=== PATIENT | female | born 1955 | race Caucasian/White ===

== ENCOUNTER 2020-11-21 19:44 | Inpatient (IN) | payer MEDICARE, OTHER ==
[~2020-11-21] VITALS: Ht 160 cm; Wt 98.9 kg
[2020-11-21 20:50] VITALS: BP 149/84
[2020-11-21] MEDS ORDERED: MAGNESIUM HYDROXIDE 2,400 MG/30 ML ORAL.SUSP. PO PRN (21:00)
[2020-11-21] MEDS ORDERED: METHYL SALICYLATE/MENTHOL TOPICAL OINTMENT 57GM TUBE. TP PRN (21:00)
[2020-11-21 21:26] LABS: BILIRUBIN,URINE NEG (NEG); CLARITY,URINE CLEAR; COLOR,URINE YELLOW; GLUCOSE,URINE NEG (NEG); NITRITE,URINE NEG (NEG); UROBILINOGEN,URINE 0.2 mg/dL (0.2 mg/dL)
[2020-11-21 21:27] LABS: BACTERIA,URINE FEW /HPF (0-FEW); RBC,URINE 0 /HPF (0-2); SQUAMOUS EPITHELIAL CELL,UR OCC /LPF; WBC,URINE OCC /HPF (0-4)
--- NOTE | 2020-11-21 21:30 | PDOC ---
Exam Note: Donte Note: Please also refer to the separate dictated note~for this date of service dictated separately.~Patient seen individually. Discussed the patient with Nursing staff reviewed the chart.~Reviewed interim history and current functioning. Reviewed vital signs,~Labs/ Radiology~and current medications noted below. Continue current treatment with the changes noted in the dictated addendum note Assessment: Vital Signs/I&O: Vital Signs Date Time Temp Pulse Resp B/P (MAP) Pulse Ox O2 Delivery O2 Flow Rate FiO2 11/21/20 20:50 97.5 90 20 149/84 (105) 100 Room Air Labs: Laboratory Tests Test 11/21/20 20:27 Glucose (Fingerstick) 191 mg/dL (70-99) H Current Medications: Meds: Laboratory Tests Test 11/21/20 20:27 Glucose (Fingerstick) 191 mg/dL Current Medications Medications (Trade) Dose Ordered Sig/Leonides Route PRN Reason Start Time Stop Time Status Last Admin Dose Admin Multi-Ingredient Ointment (Analgesic [place]) 1 swathi PRN QID PRN TP MUSCLE PAIN 11/21/20 21:00 Al Hydroxide/Mg Hydroxide (Mylanta Plus Xs) 15 ml PRN AFTMEALHC PRN PO DYSPEPSIA 11/21/20 21:00 Magnesium Hydroxide (Milk Of Magnesia) 2,400 mg PRN QHS PRN PO CONSTIPATION 11/21/20 21:00 I have reviewed the current psychotropics carefully including drug interactions. Risk benefit ratio favors no change other than as noted in my dictated progress note. RAJIV VELAZQUEZ MD Nov 21, 2020 21:30
[2020-11-21] MEDS ORDERED: OMEP20CA16 PO (21:33)
[2020-11-21] MEDS ORDERED: INSU100V31 SQ (21:33)
[2020-11-21] MEDS ORDERED: PENTOXIFYLLINE PO (21:33)
[2020-11-21] MEDS ORDERED: ASPI-889 PO (21:33)
[2020-11-21] MEDS ORDERED: MENT118G TP (21:33)
[2020-11-21] MEDS ORDERED: GUAI237L83 PO (21:33)
[2020-11-21] MEDS ORDERED: FURO40TA4 PO (21:33)
[2020-11-21] MEDS ORDERED: OXYB-36 PO (21:33)
[2020-11-21] MEDS ORDERED: AMOX1TAB61 PO (21:33)
[2020-11-21] MEDS ORDERED: LEVO112T4 PO (21:33)
[2020-11-21] MEDS ORDERED: BISA5TAB4 PO (21:33)
[2020-11-21] MEDS ORDERED: POLY2500 PO (21:33)
[2020-11-21] MEDS ORDERED: PROP40TA PO (21:33)
[2020-11-21] MEDS ORDERED: ZOLP5TAB PO (21:33)
[2020-11-21] MEDS ORDERED: IBUP-1673 PO (21:33)
[2020-11-21] MEDS ORDERED: POTA10TA5 PO (21:33)
[2020-11-21] MEDS ORDERED: INSU100V13 SQ (21:33)
[2020-11-21] MEDS ORDERED: HYDR-2155 PO (21:33)
[2020-11-21] MEDS ORDERED: EMOL85CR TP (21:33)
[2020-11-21] MEDS ORDERED: IPRA3AMP29 NEB (21:33)
[2020-11-21] MEDS ORDERED: SALI10002 MM (21:33)
[2020-11-21] MEDS ORDERED: MAGN71.5 PO (21:33)
[2020-11-21] MEDS ORDERED: LORA0.5T21 PO (21:33)
[2020-11-21] MEDS ORDERED: ACET325T21 PO (21:33)
[2020-11-21] MEDS ORDERED: QUET300T5 PO (21:33)
[2020-11-21] MEDS ORDERED: BETA15CR4 TP (21:33)
[2020-11-21] MEDS ORDERED: SEMA1PEN SQ (21:33)
[2020-11-21] MEDS ORDERED: Vitamin D3 PO (21:33)
[2020-11-21] MEDS ORDERED: BISACODYL TAB 5 MG TABLET.DR. PO PRN (21:45)
[2020-11-21] MEDS ORDERED: IPRATRPIUM/ALBUTEROL 0.5/2.5MG 3 ML NEBU. NEB PRN (21:45)
[2020-11-21] MEDS ORDERED: ACETAMINOPHEN 325 MG TABLET PO PRN (21:45)
[2020-11-21] MEDS ORDERED: IBUPROFEN 200 MG TABLET PO PRN (21:45)
[2020-11-21] MEDS ORDERED: NON FORMULARY ITEM (Menthol (Biofreeze) 1 APP) TP PRN (21:45)
[2020-11-21] MEDS ORDERED: MINERAL OIL/PETROLATUM TOPICAL CREAM 113GM JAR. TP PRN (22:00)
[2020-11-21] MEDS ORDERED: guaiFENesin DM 200MG/20MG 10 ML SYRUP PO PRN (22:00)
[2020-11-21] MEDS ORDERED: SALIVA STIMULANT AGENT 44ML SPRAY BOTTLE. PO PRN (22:15)
[2020-11-21] MEDS ORDERED: BETAMETHASONE DP AUGMENTED 0.05% 15gm CREAM TUBE. TP PRN (22:15)
[2020-11-21 22:38] LABS: BASO # 0.2 x10^3/uL (0.0-0.2); BASO % 2 % (0-3); EOS # 0.4 x10^3/uL (0.0-0.7); EOS % 4 % (0-3); HEMATOCRIT 42.4 % (36.0-47.0); HEMOGLOBIN 14.3 g/dL (12.0-15.5); LYMPH # 2.8 x10^3/uL (1.0-4.8); LYMPH % 28 % (24-48); MEAN CORPUSCULAR HEMOGLOBIN 29 pg (25-35); MEAN CORPUSCULAR HGB CONC 34 g/dL (31-37); MEAN CORPUSCULAR VOLUME 85 fL (79-100); MONO # 0.8 x10^3/uL (0.0-1.1); MONO % 8 % (0-9); NEUT % 59 % (31-73); PLATELET COUNT 282 x10^3/uL (140-400); RED BLOOD COUNT 4.97 x10^6/uL (3.50-5.40); WHITE BLOOD COUNT 10.2 x10^3/uL (4.0-11.0)
[2020-11-21] MEDS: QUEtiapine 100 MG TABLET. PO SCH (22:45)
[2020-11-21] MEDS: ZOLPIDEM 5 MG TABLET. PO SCH (22:45)
[2020-11-21] MEDS: LORazepam 0.5 MG TABLET PO SCH (22:45)
[2020-11-21] MEDS: INSULIN GLARGINE SYRINGE. SQ SCH (22:46)
[2020-11-21 22:53] LABS: ALBUMIN 3.6 g/dL (3.4-5.0); ALBUMIN/GLOBULIN RATIO 0.9 (1.0-1.7); CALCIUM 9.2 mg/dL (8.5-10.1); CREATININE 0.9 mg/dL (0.6-1.0); TOTAL PROTEIN 7.6 g/dL (6.4-8.2)
[2020-11-21 22:54] LABS: GFR 62.8; MAGNESIUM 1.9 mg/dL (1.8-2.4); POTASSIUM 3.8 mmol/L (3.5-5.1); TOTAL BILIRUBIN 0.2 mg/dL (0.2-1.0)
--- NOTE | 2020-11-22 01:02 | EKG ---
[address] [address] Test Date: 2020-11-21 Test Time: 23:17:21 Pat Name: JILLIAN VU Department: Room: [address] [place] [address] Gender: F Screener Operator: : 1955 Requested By: RAJIV VELAZQUEZ Order Number: [id number] Reading MD: Go Mendez MD Measurements Intervals [place] Rate: 86 P: 116 WV: 200 QRS: 42 QRSD: 74 T: 41 QT: 346 QTc: 417 Interpretive Statements SINUS RHYTHM BASELINE ARTIFACT Electronically Signed On 11-22-2020 7:25:19 WEATHER STRIPPER by Go Mendez MD
[2020-11-22 05:16] LABS: PLATELET CLUMP PRESENT; PLT ESTIMATE ADEQUATE (ADEQUATE)
[2020-11-22] MEDS: LEVOTHYROXINE 112 MCG TABLET PO SCH (06:00)
[2020-11-22 06:16] VITALS: BP 135/82
[2020-11-22] MEDS: INSULIN LISPRO 300 UNITS/3 ML VIAL. SQ SCH ×3 (08:00→17:19)
[2020-11-22] MEDS: OXYBUTYNIN CHLORIDE 5 MG TABLET PO SCH (08:21)
[2020-11-22] MEDS: LACTOBACILLUS RHAMNOSUS GG 1 CAPSULE. PO SCH ×2 (08:22→20:45)
[2020-11-22] MEDS: ASPIRIN ENTERIC COATED 81 MG TABLET.DR. PO SCH (08:22)
[2020-11-22] MEDS: PENTOXIFYLLINE ER 400 MG TABLET.ER. PO SCH ×3 (08:22→17:13)
[2020-11-22] MEDS: AMOXICILLIN/K CLAV 875/125MG TABLET. PO SCH ×2 (08:22→20:45)
[2020-11-22] MEDS: FUROSEMIDE 40 MG TABLET PO SCH (08:22)
[2020-11-22] MEDS: POLYETHYLENE GLYCOL 3350 17 GM PACKET. PO SCH (08:22)
[2020-11-22] MEDS: MAGNESIUM CHLORIDE ER 64 MG TABLET.ER PO SCH (08:22)
[2020-11-22] MEDS: PROPRANOLOL 20 MG TABLET. PO SCH (08:23)
[2020-11-22] MEDS: POTASSIUM CHLORIDE 10 MEQ TABLET.ER. PO SCH (08:23)
[2020-11-22] MEDS: PANTOPRAZOLE 40 MG TABLET. PO SCH (08:23)
[2020-11-22] MEDS: CHOLECALCIFEROL (VITAMIN D3) 1,000 UNIT TABLET PO SCH (08:23)
[2020-11-22] MEDS: LORazepam 0.5 MG TABLET PO SCH ×3 (08:23→20:47)
[2020-11-22] MEDS: INSULIN GLARGINE SYRINGE. SQ SCH ×2 (08:31→21:32)
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
[2020-11-22 14:12] LABS: THYROXINE 8.6 ug/dL (4.5-12.0)
[2020-11-22 14:25] LABS: THYROID STIM HORMONE (TSH) 1.281 uIU/mL (0.358-3.740)
[2020-11-22 16:08] VITALS: BP 112/72
--- NOTE | 2020-11-22 17:42 | CONS ---
DATE OF CONSULTATION: 11/22/2020 REASON FOR CONSULTATION: Medical management. HISTORY OF PRESENT ILLNESS: The patient is a 65-year-old female patient, a resident at [facility] who reportedly had been invading personal space of others, refusing medication, refusing showers, making sexual comments to staff, defecating in shower floor, clogging the toilet with silverware and cups, speck and pears, all this in a background of schizoaffective disorder with psychotic features. The patient was admitted to [facility] for inpatient psychiatric stabilization. PAST MEDICAL HISTORY: Medically, the patient is known to have type 2 diabetes, hypothyroidism, hyperlipidemia, constipation, attention deficit, mild cognitive deficit. PAST SURGICAL HISTORY: Significant for total abdominal hysterectomy. ALLERGIES: She is allergic to ASCORBIC ACID, AVOCADO, CLONIDINE, LITHIUM, MEPERIDINE, OLANZAPINE, and STRAWBERRY. MEDICATIONS: She is currently on following medications: She is on Augmentin 875 mg twice a day for 10 days for UTI. She is on DuoNeb 3 mL by nebulizer twice a day, propranolol 40 mg daily, aspirin 81 mg once a day, ibuprofen 200 mg every 6 hours, hydrocodone/APAP 5/325 one tablet twice a day as needed, Tylenol 650 every 4 hours, quetiapine fumarate for Seroquel 600 mg at bedtime, lorazepam 0.5 mg 3 times a day, Ambien 5 mg at bedtime, magnesium chloride, Slow-Mag 1 tablet daily, potassium chloride 10 mEq once a day, furosemide 40 mg daily, guaifenesin/dextromethorphan 10 mL every 8 hours. She is on bisacodyl tablets 5-10 mg daily p.r.n. for constipation, omeprazole 20 mg once a day, Ozempic 1 mg subcutaneous every Thursday. She is on NovoLog 20 units 3 times a day with meals and levothyroxine sodium 112 mcg once a day. She is on betamethasone valerate cream applied topically twice a day. She is on Eucerin Advanced Repair Cream applied topically twice a day, Biofreeze applied topically 4 times a day. She is on oxybutynin chloride 5 mg daily and she is on saliva substitute combination 15 mL 3 times a day, polyethylene glycol 17 grams daily, pentoxifylline 400 mg 3 times a day and vitamin D 2000 units once a day. FAMILY HISTORY: Noncontributory. SOCIAL HISTORY: She is a resident at [facility]. She has 2 daughters and 1 son. She never smoked, does not drink alcohol. She used to be an [employer]. REVIEW OF SYSTEMS: As per history of present illness. PHYSICAL EXAMINATION: GENERAL: When I examined her this afternoon, she looked well and was clearly in no apparent respiratory distress. No pallor, jaundice, cyanosis or thyromegaly. No jugular venous distention. No limb edema. VITAL SIGNS: Her heart rate was 99, blood pressure was 135/82, temperature was 97.5, respiratory rate was 18 and oxygen saturation was 98% on room air. HEAD, EYES, EARS, NOSE AND THROAT: Showed she is normocephalic, atraumatic. NECK: Supple. HEART: Showed normal first and second heart sounds. No gallop, rub or murmur. CHEST: Clear to auscultation. No crepitation or rhonchi. ABDOMEN: Distended, soft, nontender. NEUROLOGIC: She was somewhat slow to respond, but all her cranial nerves are intact. EXTREMITIES: She moves extremities without difficulty. She ambulates without assistance or assistive devices. LABORATORY DATA: Showed a white cell count of 10,200, hemoglobin 14, hematocrit 42, MCV 85 and platelet count 282,000 with a manual differential showed 59% polymorphs, 28% lymphocytes and 8% monocytes. Her D-dimer was normal at 0.8 mg/dL. Her chemistry showed serum sodium of 137, potassium 3.8, chloride 98, bicarbonate 28, anion gap of 11, BUN 14, creatinine 0.9, estimated GFR was 62 mL per minute. Her glucose was 149, calcium was 9.2, magnesium was 1.9. Her total bilirubin, AST, ALT, alkaline phosphatase were normal. Total protein 7.6, albumin was 3.56. Her serum triglycerides were 315, total cholesterol was 183, LDL was 80, VLDL was 63, HDL was 40 and the ratio was 4. Her TSH was 1.281, which is within normal range. 25-hydroxy vitamin D was 40 ng/mL, which is also within normal range. Her total T4 and total T3 are normal. Her serum iron, TIBC and iron saturation are all consistent with mild iron deficiency anemia. Her urinalysis was unremarkable and her Treponema pallidum antibody was nonreactive. IMPRESSION: In summary, this is a 65-year-old female patient, who was a resident at [facility] in [place], who reportedly had been invading personal space of others, refusing medication, refusing showers, making sexual comments to staff, defecating in shower floor, clogging the toilet with silverware and cups, speck and pears, all this in a background of schizoaffective disorder with psychotic features. Medically, she is known to have type 2 diabetes that does not seem to be optimally controlled. She has hypothyroidism that seems to be both clinically and biochemically euthyroid, hyperlipidemia, chronic constipation. Apart from the fact that her blood sugar is somewhat suboptimally controlled given that she is on Ozempic together with NovoLog and Lantus insulin, she seemed to be generally stable. All her vital signs are within normal range and her lab works are also within acceptable range. PLAN: My plan is to observe her blood sugar for another day or so before making any adjustments to her insulin. Otherwise, I will follow her lab work that are still pending at the time of this dictation and just make any necessary recommendation. Thank you, Dr. Gallagher, for allowing me to participate in the care of this patient. DAVY GAYLE MD DR: RAQUEL/candice JOB#: [id number] / [id number]
[2020-11-22] MEDS: ZOLPIDEM 5 MG TABLET. PO SCH (20:45)
[2020-11-22] MEDS: QUEtiapine 100 MG TABLET. PO SCH (20:46)
--- NOTE | 2020-11-22 21:12 | PDOC ---
Exam Note: Donte Note: Please also refer to the separate dictated note~for this date of service dictated separately.~Patient seen individually. Discussed the patient with Nursing staff reviewed the chart.~Reviewed interim history and current functioning. Reviewed vital signs,~Labs/ Radiology~and current medications noted below. Continue current treatment with the changes noted in the dictated addendum note Assessment: Vital Signs/I&O: Vital Signs Date Time Temp Pulse Resp B/P (MAP) Pulse Ox O2 Delivery O2 Flow Rate FiO2 11/22/20 16:08 97.6 90 16 112/72 (85) 100 11/22/20 06:16 Room Air I & O 11/21/20 11/21/20 11/22/20 15:00 23:00 07:00 Intake Total 240 ml Balance 240 ml Labs: Laboratory Tests Test 11/21/20 22:20 11/22/20 07:29 11/22/20 12:08 11/22/20 16:56 White Blood Count 10.2 x10^3/uL (4.0-11.0) Red Blood Count 4.97 x10^6/uL (3.50-5.40) Hemoglobin 14.3 g/dL (12.0-15.5) Hematocrit 42.4 % (36.0-47.0) Mean Corpuscular Volume 85 fL (79-100) Mean Corpuscular Hemoglobin 29 pg (25-35) Mean Corpuscular Hemoglobin Concent 34 g/dL (31-37) Red Cell Distribution Width 13.0 % (11.5-14.5) Platelet Count 282 x10^3/uL (140-400) Neutrophils (%) (Auto) 59 % (31-73) Lymphocytes (%) (Auto) 28 % (24-48) Monocytes (%) (Auto) 8 % (0-9) Eosinophils (%) (Auto) 4 % (0-3) H Basophils (%) (Auto) 2 % (0-3) Neutrophils # (Auto) 6.0 x10^3uL (1.8-7.7) Lymphocytes # (Auto) 2.8 x10^3/uL (1.0-4.8) Monocytes # (Auto) 0.8 x10^3/uL (0.0-1.1) Eosinophils # (Auto) 0.4 x10^3/uL (0.0-0.7) Basophils # (Auto) 0.2 x10^3/uL (0.0-0.2) Platelet Estimate Adequate (ADEQUATE) Platelet Clumps, EDTA Present D-Dimer (Eliana) 0.28 mg/L (0.00-0.50) Sodium Level 137 mmol/L (136-145) Potassium Level 3.8 mmol/L (3.5-5.1) Chloride Level 98 mmol/L (98-107) Carbon Dioxide Level 28 mmol/L (21-32) Anion Gap 11 (6-14) Blood Urea Nitrogen 14 mg/dL (7-20) Creatinine 0.9 mg/dL (0.6-1.0) Estimated GFR (Cockcroft-Gault) 62.8 BUN/Creatinine Ratio 16 (6-20) Glucose Level 249 mg/dL (70-99) H Calcium Level 9.2 mg/dL (8.5-10.1) Magnesium Level 1.9 mg/dL (1.8-2.4) Iron Level 40 ug/dL (50-170) L Total Iron Binding Capacity 362 ug/dL (250-450) Iron Saturation 11 % (15-34) L Total Bilirubin 0.2 mg/dL (0.2-1.0) Aspartate Amino Transferase (AST) 26 U/L (15-37) Alanine Aminotransferase (ALT) 37 U/L (14-59) Alkaline Phosphatase 162 U/L (46-116) H Total Protein 7.6 g/dL (6.4-8.2) Albumin 3.6 g/dL (3.4-5.0) Albumin/Globulin Ratio 0.9 (1.0-1.7) L Triglycerides Level 315 mg/dL (0-150) H Cholesterol Level 183 mg/dL (0-200) LDL Cholesterol, Calculated 80 mg/dL (0-100) VLDL Cholesterol, Calculated 63 mg/dL (0-40) H Non-HDL Cholesterol Calculated 143 mg/dL (0-129) H HDL Cholesterol 40 mg/dL (40-60) Cholesterol/HDL Ratio 4.0 Vitamin B12 Level 363 pg/mL (247-911) 25-Hydroxy Vitamin D Total 40.5 ng/mL (30-100) Thyroid Stimulating Hormone (TSH) 1.281 uIU/mL (0.358-3.740) Thyroxine (T4) 8.6 ug/dL (4.5-12.0) Total Triiodothyronine (TT3) 105 ng/dL (71-180) Treponema pallidum Antibody Nonreactive (Nonreactive) Glucose (Fingerstick) 216 mg/dL (70-99) H 214 mg/dL (70-99) H 114 mg/dL (70-99) H Test 11/22/20 19:24 Glucose (Fingerstick) 151 mg/dL (70-99) H Current Medications: Meds: Laboratory Tests Test 11/21/20 22:20 11/22/20 07:29 11/22/20 12:08 11/22/20 16:56 White Blood Count 10.2 x10^3/uL Red Blood Count 4.97 x10^6/uL Hemoglobin 14.3 g/dL Hematocrit 42.4 % Mean Corpuscular Volume 85 fL Mean Corpuscular Hemoglobin 29 pg Mean Corpuscular Hemoglobin Concent 34 g/dL Red Cell Distribution Width 13.0 % Platelet Count 282 x10^3/uL Neutrophils (%) (Auto) 59 % Lymphocytes (%) (Auto) 28 % Monocytes (%) (Auto) 8 % Eosinophils (%) (Auto) 4 % Basophils (%) (Auto) 2 % Neutrophils # (Auto) 6.0 x10^3uL Lymphocytes # (Auto) 2.8 x10^3/uL Monocytes # (Auto) 0.8 x10^3/uL Eosinophils # (Auto) 0.4 x10^3/uL Basophils # (Auto) 0.2 x10^3/uL Platelet Estimate Adequate Platelet Clumps, EDTA Present D-Dimer (Eliana) 0.28 mg/L Sodium Level 137 mmol/L Potassium Level 3.8 mmol/L Chloride Level 98 mmol/L Carbon Dioxide Level 28 mmol/L Anion Gap 11 Blood Urea Nitrogen 14 mg/dL Creatinine 0.9 mg/dL Estimated GFR (Cockcroft-Gault) 62.8 BUN/Creatinine Ratio 16 Glucose Level 249 mg/dL Calcium Level 9.2 mg/dL Magnesium Level 1.9 mg/dL Iron Level 40 ug/dL Total Iron Binding Capacity 362 ug/dL Iron Saturation 11 % Total Bilirubin 0.2 mg/dL Aspartate Amino Transf (AST/SGOT) 26 U/L Alanine Aminotransferase (ALT/SGPT) 37 U/L Alkaline Phosphatase 162 U/L Total Protein 7.6 g/dL Albumin 3.6 g/dL Albumin/Globulin Ratio 0.9 Triglycerides Level 315 mg/dL Cholesterol Level 183 mg/dL LDL Cholesterol, Calculated 80 mg/dL VLDL Cholesterol, Calculated 63 mg/dL Non-HDL Cholesterol Calculated 143 mg/dL HDL Cholesterol 40 mg/dL Cholesterol/HDL Ratio 4.0 Vitamin B12 Level 363 pg/mL 25-Hydroxy Vitamin D Total 40.5 ng/mL Thyroid Stimulating Hormone (TSH) 1.281 uIU/mL Thyroxine (T4) 8.6 ug/dL Total Triiodothyronine 105 ng/dL Treponema pallidum Antibody Nonreactive Glucose (Fingerstick) 216 mg/dL 214 mg/dL 114 mg/dL Test 11/22/20 19:24 Glucose (Fingerstick) 151 mg/dL Current Medications Medications (Trade) Dose Ordered Sig/Leonides Route PRN Reason Start Time Stop Time Status Last Admin Dose Admin Multi-Ingredient Ointment (Analgesic [place]) 1 swathi PRN QID PRN TP MUSCLE PAIN 11/21/20 21:00 Al Hydroxide/Mg Hydroxide (Mylanta Plus Xs) 15 ml PRN AFTMEALHC PRN PO DYSPEPSIA 11/21/20 21:00 Magnesium Hydroxide (Milk Of Magnesia) 2,400 mg PRN QHS PRN PO CONSTIPATION 11/21/20 21:00 Acetaminophen (Tylenol) 650 mg PRN Q4HRS PRN PO MILD PAIN / TEMP > 100.3'F 11/21/20 21:45 Amoxicillin/ Clavulanate Potassium (Augmentin 875/ 125mg) 1 tab BID PO 11/22/20 09:00 11/24/20 21:01 11/22/20 20:45 Aspirin (Aspirin Enteric Coated) 81 mg DAILY PO 11/22/20 09:00 11/22/20 08:22 Bisacodyl (Dulcolax Tab) 5 mg PRN DAILY PRN PO CONSTIPATION 11/21/20 21:45 Furosemide (Lasix) 40 mg DAILY PO 11/22/20 09:00 11/22/20 08:22 Acetaminophen/ Hydrocodone Bitart (Lortab 5/325) 1 tab PRN BID PRN PO PAIN 11/21/20 21:45 Ibuprofen (Motrin) 200 mg PRN Q6HRS PRN PO MILD PAIN / TEMP > 100.3'F 11/21/20 21:45 Albuterol/ Ipratropium (Duoneb) 3 ml PRN BID PRN NEB SHORTNESS OF BREATH 11/21/20 21:45 Levothyroxine Sodium (Synthroid) 112 mcg DAILY06 PO 11/22/20 06:00 11/22/20 06:00 Lorazepam (Ativan) 0.5 mg TID PO 11/21/20 22:00 11/22/20 20:47 Zolpidem Tartrate (Ambien) 5 mg HS PO 11/21/20 22:00 11/22/20 20:45 Betamethasone Dipropion Augmented (Betamethasone Dp Aug 0.05% Cream) 1 swathi PRN BID PRN TP RASH 11/21/20 22:15 Multi-Ingred Cream/Lotion/Oil/ Oint (Hydrocerin) 1 swathi PRN BID PRN TP Dry Hands 11/21/20 22:00 Guaifenesin (Robitussin Dm) 10 ml PRN Q8HRS PRN PO COUGH 11/21/20 22:00 Insulin Human Lispro (HumaLOG) 20 units TIDWMEALS SQ 11/22/20 08:00 11/22/20 17:19 Insulin Glargine (Lantus Syringe) 30 unit BID SQ 11/21/20 22:00 11/22/20 08:31 Magnesium Chloride (Mag Delay) 64 mg DAILY PO 11/22/20 09:00 11/22/20 08:22 Non-Formulary Medication (Menthol (Biofreeze)) 1 swathi QID PRN TP MUSCLE PAIN 11/21/20 21:45 UNV Pantoprazole Sodium (Protonix) 40 mg DAILY PO 11/22/20 09:00 11/22/20 08:23 Oxybutynin Chloride (Ditropan) 5 mg DAILY PO 11/22/20 09:00 11/22/20 08:21 Polyethylene Glycol (miraLAX) 17 gm DAILY PO 11/22/20 09:00 11/22/20 08:22 Potassium Chloride (Klor-Con) 10 meq DAILY PO 11/22/20 09:00 11/22/20 08:23 Propranolol HCl (Inderal) 40 mg DAILY PO 11/22/20 09:00 11/22/20 08:23 Quetiapine Fumarate (SEROquel) 600 mg HS PO 11/21/20 22:15 11/22/20 20:46 Saliva Substitute (Biotene Moisturizing Mouth) 2 spray PRN TID PRN PO DRY MOUTH 11/21/20 22:15 Non-Formulary Medication (Semaglutide (Ozempic)) 1 mg QFR SQ 11/23/20 16:00 UNV Pentoxifylline (TRENtal) 400 mg TIDWMEALS PO 11/22/20 08:00 11/22/20 17:13 Vitamin D (Vitamin D3) 2,000 unit DAILY PO 11/22/20 09:00 11/22/20 08:23 Lactobacillus Rhamnosus (Culturelle) 1 cap BID PO 11/22/20 09:00 11/22/20 20:45 Current Medications Medications (Trade) Dose Ordered Sig/Leonides Route PRN Reason Start Time Stop Time Status Last Admin Dose Admin Amoxicillin/ Clavulanate Potassium (Augmentin 875/ 125mg) 1 tab BID PO 11/22/20 09:00 11/24/20 21:01 11/22/20 20:45 Aspirin (Aspirin Enteric Coated) 81 mg DAILY PO 11/22/20 09:00 11/22/20 08:22 Furosemide (Lasix) 40 mg DAILY PO 11/22/20 09:00 11/22/20 08:22 Levothyroxine Sodium (Synthroid) 112 mcg DAILY06 PO 11/22/20 06:00 11/22/20 06:00 Lorazepam (Ativan) 0.5 mg TID PO 11/21/20 22:00 11/22/20 20:47 Zolpidem Tartrate (Ambien) 5 mg HS PO 11/21/20 22:00 11/22/20 20:45 Insulin Human Lispro (HumaLOG) 20 units TIDWMEALS SQ 11/22/20 08:00 11/22/20 17:19 Insulin Glargine (Lantus Syringe) 30 unit BID SQ 11/21/20 22:00 11/22/20 08:31 Magnesium Chloride (Mag Delay) 64 mg DAILY PO 11/22/20 09:00 11/22/20 08:22 Pantoprazole Sodium (Protonix) 40 mg DAILY PO 11/22/20 09:00 11/22/20 08:23 Oxybutynin Chloride (Ditropan) 5 mg DAILY PO 11/22/20 09:00 11/22/20 08:21 Polyethylene Glycol (miraLAX) 17 gm DAILY PO 11/22/20 09:00 11/22/20 08:22 Potassium Chloride (Klor-Con) 10 meq DAILY PO 11/22/20 09:00 11/22/20 08:23 Propranolol HCl (Inderal) 40 mg DAILY PO 11/22/20 09:00 11/22/20 08:23 Quetiapine Fumarate (SEROquel) 600 mg HS PO 11/21/20 22:15 11/22/20 20:46 Pentoxifylline (TRENtal) 400 mg TIDWMEALS PO 11/22/20 08:00 11/22/20 17:13 Vitamin D (Vitamin D3) 2,000 unit DAILY PO 11/22/20 09:00 11/22/20 08:23 Lactobacillus Rhamnosus (Culturelle) 1 cap BID PO 11/22/20 09:00 11/22/20 20:45 I have reviewed the current psychotropics carefully including drug interactions. Risk benefit ratio favors no change other than as noted in my dictated progress note. Diagnosis: Problems: (1) Mild cognitive impairment RAJIV VELAZQUEZ MD Nov 22, 2020 21:12
--- NOTE | 2020-11-22 23:41 | HP ---
ADMIT DATE: 11/22/2020 PSYCHIATRIC ADMISSION HISTORY/EVALUATION IDENTIFYING DATA: The patient is a 65-year-old female referred to us from [facility] by her primary care physician/psychiatrist on account of an acute exacerbation of schizoaffective disorder, bipolar type, with psychotic features within the context of mild intellectual deficits. The patient has been living at the above level 2 facility for some time and recently has been "invading personal space of others." She has been refusing medications, refusing showers, making sexually inappropriate comments to staff, defecating on the shower floor, clogging the toilet with silverware/cups, spitting on peers. She has appeared psychotic, paranoid, has failed outpatient psychiatric interventions resulting in this referral. CHIEF COMPLAINT: "I don't do that." HISTORY OF PRESENT ILLNESS: The patient has a history of schizoaffective disorder, bipolar type. She has been residing at the above facility for some time, recently getting extremely paranoid, psychotic, and disruptive. Behaviors have been unmanageable at the facility and has failed outpatient psychiatric interventions. PAST PSYCHIATRIC HISTORY: As above. MEDICAL HISTORY: Type 2 diabetes mellitus, hypothyroidism, overactive bladder, obesity, hyperlipidemia, chronic constipation, edema, allergic rhinitis, cognitive deficits. ACCU-CHEKS: Before meals and at bedtime. CODE STATUS: FULL CODE. ALLERGIES: VITAMIN C, CLONIDINE, LITHIUM, MEPERIDINE, DEMEROL, ZYPREXA, AVOCADO, STRAWBERRIES. DIET: Diabetic, takes medications whole, ambulates independently. UA on 11/21/2020 is negative. CURRENT PSYCHOTROPICS: Ativan 0.5 mg t.i.d., Seroquel 600 mg at bedtime, Ambien 5 mg at bedtime. FAMILY HISTORY: Noncontributory. SOCIAL HISTORY: The patient admits to a past history of alcohol abuse, questionable polysubstance abuse, but this will have to be verified with other sources. No physical, sexual or elder abuse history is noted. She is not known to be a perpetrator. 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 REVIEW OF SYSTEMS: No CV, , pulmonary, eye, ENT system symptoms on review. MENTAL STATUS EXAMINATION: The patient was seen individually evening of 11/22/2020 on telehealth rounds. She is alert, oriented to herself and situation, knew that she was admitted previous evening. Speech is coherent, abstraction fair, computation impaired, language function intact, attention span short. She was aware of her name and date of , somewhat forgetful with short-term memory deficits, some speech is mumbling, somewhat inattentive, was questioning on her medications. LABORATORY DATA: Reviewed. IMPRESSION: Schizoaffective disorder, bipolar type, mixed with psychotic features; anxiety disorder, unspecified; impulse control disorder, unspecified; intellectual disability. Rest unchanged from above. PLAN: Admit to Geropsychiatry Unit at [facility]. I will see the patient daily individually from a psychiatric standpoint. Medical follow up with Dr. Daniels/Dr. Delatorre. Continue the patient on her current psychotropics, observe baseline and then adjust as clinically indicated. Consider adding Depakote as a mood stabilizer. ESTIMATED LENGTH OF STAY: 10-12 days. DISPOSITION PLANS: Return to facility when stable. RAJIV VELAZQUEZ MD DR: MEÑO/candice JOB#: [id number] / [id number]
[2020-11-23 01:41] LABS: HEMOGLOBIN A1C 7.1 % (4.8-5.6)
[2020-11-23] MEDS: LEVOTHYROXINE 112 MCG TABLET PO SCH (05:19)
[2020-11-23 06:19] VITALS: BP 142/83
[2020-11-23] MEDS: INSULIN LISPRO 300 UNITS/3 ML VIAL. SQ SCH ×3 (08:00→17:00)
[2020-11-23] MEDS: FUROSEMIDE 40 MG TABLET PO SCH (08:30)
[2020-11-23] MEDS: OXYBUTYNIN CHLORIDE 5 MG TABLET PO SCH (08:30)
[2020-11-23] MEDS: PENTOXIFYLLINE ER 400 MG TABLET.ER. PO SCH ×3 (08:31→17:00)
[2020-11-23] MEDS: CHOLECALCIFEROL (VITAMIN D3) 1,000 UNIT TABLET PO SCH (08:31)
[2020-11-23] MEDS: ASPIRIN ENTERIC COATED 81 MG TABLET.DR. PO SCH (08:31)
[2020-11-23] MEDS: PANTOPRAZOLE 40 MG TABLET. PO SCH (08:31)
[2020-11-23] MEDS: PROPRANOLOL 20 MG TABLET. PO SCH (08:31)
[2020-11-23] MEDS: AMOXICILLIN/K CLAV 875/125MG TABLET. PO SCH ×2 (08:31→20:05)
[2020-11-23] MEDS: POTASSIUM CHLORIDE 10 MEQ TABLET.ER. PO SCH (08:31)
[2020-11-23] MEDS: MAGNESIUM CHLORIDE ER 64 MG TABLET.ER PO SCH (08:31)
[2020-11-23] MEDS: LACTOBACILLUS RHAMNOSUS GG 1 CAPSULE. PO SCH ×2 (08:31→20:05)
[2020-11-23] MEDS: POLYETHYLENE GLYCOL 3350 17 GM PACKET. PO SCH (08:40)
[2020-11-23] MEDS: INSULIN GLARGINE SYRINGE. SQ SCH ×2 (09:00→23:28)
[2020-11-23] MEDS: LORazepam 0.5 MG TABLET PO SCH ×3 (09:00→20:05)
[2020-11-23 15:28] VITALS: BP 122/77
[2020-11-23] MEDS: NON FORMULARY ITEM (Semaglutide (Ozempic) 1 MG) SQ SCH (16:00)
[2020-11-23] MEDS: ZOLPIDEM 5 MG TABLET. PO SCH (20:05)
[2020-11-23] MEDS: QUEtiapine 100 MG TABLET. PO SCH (20:05)
--- NOTE | 2020-11-23 21:42 | PDOC ---
Exam Note: Donte Note: Please also refer to the separate dictated note~for this date of service dictated separately.~Patient seen individually. Discussed the patient with Nursing staff reviewed the chart.~Reviewed interim history and current functioning. Reviewed vital signs,~Labs/ Radiology~and current medications noted below. Continue current treatment with the changes noted in the dictated addendum note Assessment: Vital Signs/I&O: Vital Signs Date Time Temp Pulse Resp B/P (MAP) Pulse Ox O2 Delivery O2 Flow Rate FiO2 11/23/20 15:28 98.1 79 20 122/77 (92) 97 Room Air I & O 11/22/20 11/22/20 11/23/20 15:00 23:00 07:00 Intake Total 600 ml 480 ml Balance 600 ml 480 ml Labs: Laboratory Tests Test 11/23/20 07:13 11/23/20 11:29 11/23/20 16:49 11/23/20 19:19 Glucose (Fingerstick) 184 mg/dL (70-99) H 134 mg/dL (70-99) H 98 mg/dL (70-99) 254 mg/dL (70-99) H Current Medications: I have reviewed the current psychotropics carefully including drug interactions. Risk benefit ratio favors no change other than as noted in my dictated progress note. Diagnosis: Problems: (1) Schizoaffective disorder, bipolar type (2) Bipolar disorder, curr episode mixed, severe, with psychotic features (3) Anxiety disorder, unspecified (4) Impulse disorder, unspecified (5) Intellectual disability RAJIV VELAZQUEZ MD Nov 23, 2020 21:42
[2020-11-24] MEDS: LEVOTHYROXINE 112 MCG TABLET PO SCH (04:46)
[2020-11-24 06:35] VITALS: BP 138/77
[2020-11-24] MEDS: FUROSEMIDE 40 MG TABLET PO SCH (08:48)
[2020-11-24] MEDS: PENTOXIFYLLINE ER 400 MG TABLET.ER. PO SCH ×3 (08:48→17:24)
[2020-11-24] MEDS: OXYBUTYNIN CHLORIDE 5 MG TABLET PO SCH (08:49)
[2020-11-24] MEDS: CHOLECALCIFEROL (VITAMIN D3) 1,000 UNIT TABLET PO SCH (08:49)
[2020-11-24] MEDS: MAGNESIUM CHLORIDE ER 64 MG TABLET.ER PO SCH (08:49)
[2020-11-24] MEDS: LORazepam 0.5 MG TABLET PO SCH ×3 (08:49→20:58)
[2020-11-24] MEDS: AMOXICILLIN/K CLAV 875/125MG TABLET. PO SCH ×2 (08:49→20:55)
[2020-11-24] MEDS: PANTOPRAZOLE 40 MG TABLET. PO SCH (08:49)
[2020-11-24] MEDS: LACTOBACILLUS RHAMNOSUS GG 1 CAPSULE. PO SCH ×2 (08:49→20:55)
[2020-11-24] MEDS: POTASSIUM CHLORIDE 10 MEQ TABLET.ER. PO SCH (08:49)
[2020-11-24] MEDS: PROPRANOLOL 20 MG TABLET. PO SCH (08:50)
[2020-11-24] MEDS: POLYETHYLENE GLYCOL 3350 17 GM PACKET. PO SCH (08:50)
[2020-11-24] MEDS: INSULIN LISPRO 300 UNITS/3 ML VIAL. SQ SCH ×3 (08:51→17:25)
[2020-11-24] MEDS: ASPIRIN ENTERIC COATED 81 MG TABLET.DR. PO SCH (08:53)
[2020-11-24] MEDS: INSULIN GLARGINE SYRINGE. SQ SCH ×2 (08:53→20:59)
--- NOTE | 2020-11-24 13:54 | PN ---
DATE: 11/24/2020 SUBJECTIVE: The patient was seen today, met with the staff, chart reviewed and also covering for Dr. Gallagher. Staff reports continued behavior problems including irritability, increased agitation and confusion. She is also not cooperative with ADLs. She has been refusing medications at times, also refusing showers. OBSERVATION: The patient's appetite decreased. The patient is apparently not sleeping well. The patient is not showing any major side effects of the medications. CURRENT MEDICATIONS: Include Seroquel 600 mg at night, zolpidem 5 mg at night. The patient's lab reviewed. The patient's glucose level fingerstick fluctuates, yesterday it was 184. The patient is having difficulty communicating her needs. The patient tends to be intrusive, demanding, apparently confused most of the time, difficult to follow directions. The patient also tends to get paranoid and suspicious at times. ASSESSMENT: Schizoaffective disorder, bipolar type, psychotic features; anxiety disorder, unspecified. PILAR DE ANDA MD DR: DARNELL/candice JOB#: [id number] / [id number]
[2020-11-24 15:39] VITALS: BP 130/81
[2020-11-24] MEDS: QUEtiapine 100 MG TABLET. PO SCH (20:55)
[2020-11-24] MEDS: ZOLPIDEM 5 MG TABLET. PO SCH (20:58)
--- NOTE | 2020-11-24 21:23 | PDOC ---
Exam Note: Donte Note: This note is a late entry for 11/23/2020 covers elements not covered in my initial note. Subjective: The patient was reviewed on telehealth rounds in the evening of 11/23/2020 with Elizabeth COPELAND. Discussed with nursing staff, reviewed the chart. The patient slept 6 hours previous night. Overall she has been somewhat anxious, labile in her mood. Reviewed her history of schizoaffective disorder, bipolar type at length and we will initiate Depakote ER 500 mg p.o. h.s. Check CBC, CMP, valproic acid level in 3 days. Review of Systems: No CV, , pulmonary, eye, ENT system symptoms on review. Mental Status Exam: The patient is oriented to herself. Speech has some latency, coherent, low in volume. Abstraction is fair. Computation is impaired. Language function is intact. Attention span is short. Mood and affect somewhat withdrawn. Laboratory Data: Reviewed as above. Impression: Schizoaffective disorder bipolar type mixed with psychotic features. Anxiety disorder unspecified. Impulse control disorder unspecified. Plan: Start Depakote ER as noted above. Follow labs level. Continue rest of the psychotropics. Assessment: Vital Signs/I&O: Vital Signs Date Time Temp Pulse Resp B/P (MAP) Pulse Ox O2 Delivery O2 Flow Rate FiO2 11/24/20 15:39 97.3 81 20 130/81 (97) 98 Room Air I & O 11/23/20 11/23/20 11/24/20 15:00 23:00 07:00 Intake Total 360 ml 480 ml Balance 360 ml 480 ml Labs: Laboratory Tests Test 11/24/20 08:04 11/24/20 12:12 11/24/20 16:34 11/24/20 19:26 Glucose (Fingerstick) 163 mg/dL (70-99) H 177 mg/dL (70-99) H 160 mg/dL (70-99) H 121 mg/dL (70-99) H Current Medications: Meds: Laboratory Tests Test 11/24/20 08:04 11/24/20 12:12 11/24/20 16:34 11/24/20 19:26 Glucose (Fingerstick) 163 mg/dL 177 mg/dL 160 mg/dL 121 mg/dL Current Medications Medications (Trade) Dose Ordered Sig/Leonides Route PRN Reason Start Time Stop Time Status Last Admin Dose Admin Multi-Ingredient Ointment (Analgesic [place]) 1 swathi PRN QID PRN TP MUSCLE PAIN 11/21/20 21:00 Al Hydroxide/Mg Hydroxide (Mylanta Plus Xs) 15 ml PRN AFTMEALHC PRN PO DYSPEPSIA 11/21/20 21:00 Magnesium Hydroxide (Milk Of Magnesia) 2,400 mg PRN QHS PRN PO 1ST CHOICE CONSTIPATION 11/21/20 21:00 Acetaminophen (Tylenol) 650 mg PRN Q4HRS PRN PO MILD PAIN / TEMP > 100.3'F 11/21/20 21:45 Amoxicillin/ Clavulanate Potassium (Augmentin 875/ 125mg) 1 tab BID PO 11/22/20 09:00 11/24/20 21:01 DC 11/24/20 20:55 Aspirin (Aspirin Enteric Coated) 81 mg DAILY PO 11/22/20 09:00 11/24/20 08:53 Bisacodyl (Dulcolax Tab) 5 mg PRN DAILY PRN PO 2ND CHOICE CONSTIPATION 11/21/20 21:45 Furosemide (Lasix) 40 mg DAILY PO 11/22/20 09:00 11/24/20 08:48 Acetaminophen/ Hydrocodone Bitart (Lortab 5/325) 1 tab PRN BID PRN PO PAIN 11/21/20 21:45 Ibuprofen (Motrin) 200 mg PRN Q6HRS PRN PO MILD PAIN / TEMP > 100.3'F 11/21/20 21:45 Albuterol/ Ipratropium (Duoneb) 3 ml PRN BID PRN NEB SHORTNESS OF BREATH 11/21/20 21:45 Levothyroxine Sodium (Synthroid) 112 mcg DAILY06 PO 11/22/20 06:00 11/24/20 04:46 Lorazepam (Ativan) 0.5 mg TID PO 11/21/20 22:00 11/24/20 20:58 Zolpidem Tartrate (Ambien) 5 mg HS PO 11/21/20 22:00 11/24/20 20:58 Betamethasone Dipropion Augmented (Betamethasone Dp Aug 0.05% Cream) 1 swathi PRN BID PRN TP RASH 11/21/20 22:15 Multi-Ingred Cream/Lotion/Oil/ Oint (Hydrocerin) 1 swathi PRN BID PRN TP Dry Hands 11/21/20 22:00 Guaifenesin (Robitussin Dm) 10 ml PRN Q8HRS PRN PO COUGH 11/21/20 22:00 Insulin Human Lispro (HumaLOG) 20 units TIDWMEALS SQ 11/22/20 08:00 11/24/20 17:25 Insulin Glargine (Lantus Syringe) 30 unit BID SQ 11/21/20 22:00 11/24/20 20:59 Magnesium Chloride (Mag Delay) 64 mg DAILY PO 11/22/20 09:00 11/24/20 08:49 Non-Formulary Medication (Menthol (Biofreeze)) 1 swathi QID PRN TP MUSCLE PAIN 11/21/20 21:45 UNV Pantoprazole Sodium (Protonix) 40 mg DAILY PO 11/22/20 09:00 11/24/20 08:49 Oxybutynin Chloride (Ditropan) 5 mg DAILY PO 11/22/20 09:00 11/24/20 08:49 Polyethylene Glycol (miraLAX) 17 gm DAILY PO 11/22/20 09:00 11/24/20 08:50 Potassium Chloride (Klor-Con) 10 meq DAILY PO 11/22/20 09:00 11/24/20 08:49 Propranolol HCl (Inderal) 40 mg DAILY PO 11/22/20 09:00 11/24/20 08:50 Quetiapine Fumarate (SEROquel) 600 mg HS PO 11/21/20 22:15 11/24/20 20:55 Saliva Substitute (Biotene Moisturizing Mouth) 2 spray PRN TID PRN PO DRY MOUTH 11/21/20 22:15 Non-Formulary Medication (Semaglutide (Ozempic)) 1 mg QFR SQ 11/23/20 16:00 UNV Pentoxifylline (TRENtal) 400 mg TIDWMEALS PO 11/22/20 08:00 11/24/20 17:24 Vitamin D (Vitamin D3) 2,000 unit DAILY PO 11/22/20 09:00 11/24/20 08:49 Lactobacillus Rhamnosus (Culturelle) 1 cap BID PO 11/22/20 09:00 11/24/20 20:55 I have reviewed the current psychotropics carefully including drug interactions. Risk benefit ratio favors no change other than as noted in my dictated progress note. Diagnosis: Problems: (1) Mild cognitive impairment (2) Schizoaffective disorder, bipolar type (3) Anxiety disorder, unspecified (4) Intellectual disability (5) Impulse disorder, unspecified (6) Bipolar disorder, curr episode mixed, severe, with psychotic features RAJIV VELAZQUEZ MD Nov 24, 2020 21:23
[2020-11-25] MEDS: LEVOTHYROXINE 112 MCG TABLET PO SCH (05:21)
[2020-11-25 06:44] VITALS: BP 155/92
[2020-11-25] MEDS: ASPIRIN ENTERIC COATED 81 MG TABLET.DR. PO SCH (08:26)
[2020-11-25] MEDS: PANTOPRAZOLE 40 MG TABLET. PO SCH (08:26)
[2020-11-25] MEDS: CHOLECALCIFEROL (VITAMIN D3) 1,000 UNIT TABLET PO SCH (08:26)
[2020-11-25] MEDS: OXYBUTYNIN CHLORIDE 5 MG TABLET PO SCH (08:26)
[2020-11-25] MEDS: POLYETHYLENE GLYCOL 3350 17 GM PACKET. PO SCH (08:27)
[2020-11-25] MEDS: LACTOBACILLUS RHAMNOSUS GG 1 CAPSULE. PO SCH ×2 (08:27→20:31)
[2020-11-25] MEDS: FUROSEMIDE 40 MG TABLET PO SCH (08:27)
[2020-11-25] MEDS: LORazepam 0.5 MG TABLET PO SCH ×3 (08:27→20:33)
[2020-11-25] MEDS: PENTOXIFYLLINE ER 400 MG TABLET.ER. PO SCH ×3 (08:27→17:24)
[2020-11-25] MEDS: PROPRANOLOL 20 MG TABLET. PO SCH (08:27)
[2020-11-25] MEDS: POTASSIUM CHLORIDE 10 MEQ TABLET.ER. PO SCH (08:27)
[2020-11-25] MEDS: MAGNESIUM CHLORIDE ER 64 MG TABLET.ER PO SCH (08:27)
[2020-11-25] MEDS: INSULIN GLARGINE SYRINGE. SQ SCH ×2 (08:28→20:34)
[2020-11-25] MEDS: INSULIN LISPRO 300 UNITS/3 ML VIAL. SQ SCH ×3 (08:29→17:00)
--- NOTE | 2020-11-25 13:09 | PN ---
DATE: 11/25/2020 SUBJECTIVE: The patient was seen today, met with the staff, chart reviewed. Staff reports still having behavior problems, slow mentation, decreased psychomotor activity, also resist due to medications. OBSERVATION: VITAL SIGNS: Temperature 97.5, blood pressure 155/92, pulse 106, respirations 20, O2 sat 99%. GENERAL: Slept about 5 hours last night. The patient's appetite is fair. LABORATORY DATA: The patient's lab reviewed. MEDICATIONS: The patient's current medications include Seroquel 600 mg at night and zolpidem 5 mg at night. The patient continues to have problems with cognition, confused, difficult to redirect, and tends to get paranoid, and suspicious. Currently is not exhibiting any overt psychotic symptoms. ASSESSMENT: 1. Schizoaffective disorder, bipolar type, with psychotic features. 2. Anxiety disorder, unspecified. PLAN: To continue with the current treatment plan. LENGTH OF STAY: 5-10 days. PILAR DE ANDA MD DR: DARNELL/candice JOB#: [id number] / [id number]
[2020-11-25 16:18] VITALS: BP 125/86
[2020-11-25] MEDS: QUEtiapine 100 MG TABLET. PO SCH (20:31)
[2020-11-25] MEDS: ZOLPIDEM 5 MG TABLET. PO SCH (20:33)
[2020-11-26] MEDS: LEVOTHYROXINE 112 MCG TABLET PO SCH (05:27)
[2020-11-26 06:06] VITALS: BP 159/89
[2020-11-26] MEDS: FUROSEMIDE 40 MG TABLET PO SCH (07:54)
[2020-11-26] MEDS: PANTOPRAZOLE 40 MG TABLET. PO SCH (07:54)
[2020-11-26] MEDS: OXYBUTYNIN CHLORIDE 5 MG TABLET PO SCH (07:54)
[2020-11-26] MEDS: CHOLECALCIFEROL (VITAMIN D3) 1,000 UNIT TABLET PO SCH (07:54)
[2020-11-26] MEDS: LACTOBACILLUS RHAMNOSUS GG 1 CAPSULE. PO SCH ×2 (07:54→20:44)
[2020-11-26] MEDS: ASPIRIN ENTERIC COATED 81 MG TABLET.DR. PO SCH (07:55)
[2020-11-26] MEDS: PENTOXIFYLLINE ER 400 MG TABLET.ER. PO SCH ×3 (07:55→17:02)
[2020-11-26] MEDS: MAGNESIUM CHLORIDE ER 64 MG TABLET.ER PO SCH (07:55)
[2020-11-26] MEDS: POTASSIUM CHLORIDE 10 MEQ TABLET.ER. PO SCH (07:55)
[2020-11-26] MEDS: POLYETHYLENE GLYCOL 3350 17 GM PACKET. PO SCH (07:56)
[2020-11-26] MEDS: PROPRANOLOL 20 MG TABLET. PO SCH (07:57)
[2020-11-26] MEDS: LORazepam 0.5 MG TABLET PO SCH ×3 (07:59→20:48)
[2020-11-26] MEDS: INSULIN LISPRO 300 UNITS/3 ML VIAL. SQ SCH ×3 (08:03→17:00)
[2020-11-26] MEDS: INSULIN GLARGINE SYRINGE. SQ SCH ×2 (09:21→20:49)
[2020-11-26 16:30] VITALS: BP 139/83
[2020-11-26] MEDS: ZOLPIDEM 5 MG TABLET. PO SCH (20:44)
[2020-11-26] MEDS: QUEtiapine 100 MG TABLET. PO SCH (20:44)
--- NOTE | 2020-11-26 21:05 | PDOC ---
Exam Note: Donte Note: Please also refer to the separate dictated note~for this date of service dictated separately.~Patient seen individually. Discussed the patient with Nursing staff reviewed the chart.~Reviewed interim history and current functioning. Reviewed vital signs,~Labs/ Radiology~and current medications noted below. Continue current treatment with the changes noted in the dictated addendum note Assessment: Vital Signs/I&O: Vital Signs Date Time Temp Pulse Resp B/P (MAP) Pulse Ox O2 Delivery O2 Flow Rate FiO2 11/26/20 16:30 97.8 79 16 139/83 (101) 97 11/24/20 15:39 Room Air I & O 11/25/20 11/25/20 11/26/20 15:00 23:00 07:00 Intake Total 360 ml 240 ml Balance 360 ml 240 ml Labs: Laboratory Tests Test 11/26/20 07:12 11/26/20 11:29 11/26/20 17:05 11/26/20 19:12 Glucose (Fingerstick) 178 mg/dL (70-99) H 156 mg/dL (70-99) H 94 mg/dL (70-99) 161 mg/dL (70-99) H Current Medications: I have reviewed the current psychotropics carefully including drug interactions. Risk benefit ratio favors no change other than as noted in my dictated progress note. Diagnosis: Problems: (1) Mild cognitive impairment (2) Schizoaffective disorder, bipolar type (3) Anxiety disorder, unspecified (4) Intellectual disability (5) Impulse disorder, unspecified (6) Bipolar disorder, curr episode mixed, severe, with psychotic features RAJIV VELAZQUEZ MD Nov 26, 2020 21:05
[2020-11-27] MEDS: LEVOTHYROXINE 112 MCG TABLET PO SCH (05:39)
[2020-11-27 05:47] VITALS: BP 154/84
[2020-11-27 07:32] LABS: BASO # 0.1 x10^3/uL (0.0-0.2); BASO % 1 % (0-3); EOS # 0.3 x10^3/uL (0.0-0.7); EOS % 3 % (0-3); HEMATOCRIT 41.3 % (36.0-47.0); HEMOGLOBIN 13.8 g/dL (12.0-15.5); LYMPH # 2.9 x10^3/uL (1.0-4.8); LYMPH % 29 % (24-48); MEAN CORPUSCULAR HEMOGLOBIN 28 pg (25-35); MEAN CORPUSCULAR HGB CONC 33 g/dL (31-37); MEAN CORPUSCULAR VOLUME 84 fL (79-100); MONO # 0.9 x10^3/uL (0.0-1.1); MONO % 9 % (0-9); NEUT # 5.8 x10^3uL (1.8-7.7); NEUT % 58 % (31-73); PLATELET COUNT 261 x10^3/uL (140-400); RED BLOOD COUNT 4.92 x10^6/uL (3.50-5.40); RED CELL DISTRIBUTION WIDTH 12.8 % (11.5-14.5)
[2020-11-27 07:42] LABS: ALBUMIN 3.2 g/dL (3.4-5.0); ALBUMIN/GLOBULIN RATIO 0.8 (1.0-1.7); CALCIUM 9.2 mg/dL (8.5-10.1); CREATININE 0.8 mg/dL (0.6-1.0); POTASSIUM 3.3 mmol/L (3.5-5.1); TOTAL BILIRUBIN 0.4 mg/dL (0.2-1.0); TOTAL PROTEIN 7.4 g/dL (6.4-8.2)
[2020-11-27] MEDS: INSULIN GLARGINE SYRINGE. SQ SCH (08:40)
[2020-11-27] MEDS: INSULIN LISPRO 300 UNITS/3 ML VIAL. SQ SCH ×3 (08:41→17:11)
[2020-11-27] MEDS: POLYETHYLENE GLYCOL 3350 17 GM PACKET. PO SCH (08:42)
[2020-11-27] MEDS: ASPIRIN ENTERIC COATED 81 MG TABLET.DR. PO SCH (08:42)
[2020-11-27] MEDS: PENTOXIFYLLINE ER 400 MG TABLET.ER. PO SCH ×3 (08:42→17:11)
[2020-11-27] MEDS: LACTOBACILLUS RHAMNOSUS GG 1 CAPSULE. PO SCH ×2 (08:42→19:52)
[2020-11-27] MEDS: FUROSEMIDE 40 MG TABLET PO SCH (08:42)
[2020-11-27] MEDS: CHOLECALCIFEROL (VITAMIN D3) 1,000 UNIT TABLET PO SCH (08:42)
[2020-11-27] MEDS: MAGNESIUM CHLORIDE ER 64 MG TABLET.ER PO SCH (08:43)
[2020-11-27] MEDS: POTASSIUM CHLORIDE 10 MEQ TABLET.ER. PO SCH (08:43)
[2020-11-27] MEDS: OXYBUTYNIN CHLORIDE 5 MG TABLET PO SCH (08:43)
[2020-11-27] MEDS: PANTOPRAZOLE 40 MG TABLET. PO SCH (08:44)
[2020-11-27] MEDS: PROPRANOLOL 20 MG TABLET. PO SCH (08:46)
[2020-11-27] MEDS: LORazepam 0.5 MG TABLET PO SCH ×3 (08:46→19:55)
--- NOTE | 2020-11-27 09:11 | PDOC ---
Exam Note: Donte Note: This note is a late entry for 11/26/2020 covers elements not covered in my initial note. Subjective: The patient was reviewed on telehealth rounds in the evening of 11/26/2020 with Shakira COPELAND. Discussed with nursing staff, reviewed the chart. The patient slept 7-1/2 hours previous night. Overall the patient has been somewhat withdrawn, gets easily frustrated and irritable, somewhat paranoid as was evident after I met her on telehealth rounds this evening. Review of Systems: No CV, , pulmonary, eye, ENT system symptoms on review. Mental Status Exam: The patient is oriented to herself. She is quite pleasant as I met with her individually but right after I completed my rounds she was yelling and screaming, quite labile in her mood. Speech has some latency, coherent, low in volume. Abstraction is fair. Computation is impaired. Language function is intact. Attention span is short. Mood and affect somewhat withdrawn, labile. No suicidal or homicidal ideation. Laboratory Data: Reviewed as above. Impression: Schizoaffective disorder bipolar type mixed with psychotic features. Anxiety disorder unspecified. Impulse control disorder unspecified. Plan: No change from initial note. She will continue Seroquel along with Ativan and Ambien. We will gradually taper the Ativan. Depakote has been initiated. We will follow labs level. Adjust as clinically indicated. Assessment: Vital Signs/I&O: Vital Signs Date Time Temp Pulse Resp B/P (MAP) Pulse Ox O2 Delivery O2 Flow Rate FiO2 11/27/20 08:46 93 154/84 11/27/20 05:47 97.5 18 96 11/24/20 15:39 Room Air I & O 11/26/20 11/26/20 11/27/20 15:00 23:00 07:00 Intake Total 960 ml 360 ml Balance 960 ml 360 ml Labs: Laboratory Tests Test 11/26/20 11:29 11/26/20 17:05 11/26/20 19:12 11/27/20 06:38 Glucose (Fingerstick) 156 mg/dL (70-99) H 94 mg/dL (70-99) 161 mg/dL (70-99) H White Blood Count 10.0 x10^3/uL (4.0-11.0) Red Blood Count 4.92 x10^6/uL (3.50-5.40) Hemoglobin 13.8 g/dL (12.0-15.5) Hematocrit 41.3 % (36.0-47.0) Mean Corpuscular Volume 84 fL (79-100) Mean Corpuscular Hemoglobin 28 pg (25-35) Mean Corpuscular Hemoglobin Concent 33 g/dL (31-37) Red Cell Distribution Width 12.8 % (11.5-14.5) Platelet Count 261 x10^3/uL (140-400) Neutrophils (%) (Auto) 58 % (31-73) Lymphocytes (%) (Auto) 29 % (24-48) Monocytes (%) (Auto) 9 % (0-9) Eosinophils (%) (Auto) 3 % (0-3) Basophils (%) (Auto) 1 % (0-3) Neutrophils # (Auto) 5.8 x10^3uL (1.8-7.7) Lymphocytes # (Auto) 2.9 x10^3/uL (1.0-4.8) Monocytes # (Auto) 0.9 x10^3/uL (0.0-1.1) Eosinophils # (Auto) 0.3 x10^3/uL (0.0-0.7) Basophils # (Auto) 0.1 x10^3/uL (0.0-0.2) Sodium Level 139 mmol/L (136-145) Potassium Level 3.3 mmol/L (3.5-5.1) L Chloride Level 102 mmol/L (98-107) Carbon Dioxide Level 26 mmol/L (21-32) Anion Gap 11 (6-14) Blood Urea Nitrogen 17 mg/dL (7-20) Creatinine 0.8 mg/dL (0.6-1.0) Estimated GFR (Cockcroft-Gault) 72.0 BUN/Creatinine Ratio 21 (6-20) H Glucose Level 108 mg/dL (70-99) H Calcium Level 9.2 mg/dL (8.5-10.1) Total Bilirubin 0.4 mg/dL (0.2-1.0) Aspartate Amino Transferase (AST) 30 U/L (15-37) Alanine Aminotransferase (ALT) 36 U/L (14-59) Alkaline Phosphatase 144 U/L (46-116) H Total Protein 7.4 g/dL (6.4-8.2) Albumin 3.2 g/dL (3.4-5.0) L Albumin/Globulin Ratio 0.8 (1.0-1.7) L Test 11/27/20 07:35 Glucose (Fingerstick) 124 mg/dL (70-99) H Current Medications: Meds: Laboratory Tests Test 11/26/20 11:29 11/26/20 17:05 11/26/20 19:12 11/27/20 06:38 Glucose (Fingerstick) 156 mg/dL 94 mg/dL 161 mg/dL White Blood Count 10.0 x10^3/uL Red Blood Count 4.92 x10^6/uL Hemoglobin 13.8 g/dL Hematocrit 41.3 % Mean Corpuscular Volume 84 fL Mean Corpuscular Hemoglobin 28 pg Mean Corpuscular Hemoglobin Concent 33 g/dL Red Cell Distribution Width 12.8 % Platelet Count 261 x10^3/uL Neutrophils (%) (Auto) 58 % Lymphocytes (%) (Auto) 29 % Monocytes (%) (Auto) 9 % Eosinophils (%) (Auto) 3 % Basophils (%) (Auto) 1 % Neutrophils # (Auto) 5.8 x10^3uL Lymphocytes # (Auto) 2.9 x10^3/uL Monocytes # (Auto) 0.9 x10^3/uL Eosinophils # (Auto) 0.3 x10^3/uL Basophils # (Auto) 0.1 x10^3/uL Sodium Level 139 mmol/L Potassium Level 3.3 mmol/L Chloride Level 102 mmol/L Carbon Dioxide Level 26 mmol/L Anion Gap 11 Blood Urea Nitrogen 17 mg/dL Creatinine 0.8 mg/dL Estimated GFR (Cockcroft-Gault) 72.0 BUN/Creatinine Ratio 21 Glucose Level 108 mg/dL Calcium Level 9.2 mg/dL Total Bilirubin 0.4 mg/dL Aspartate Amino Transf (AST/SGOT) 30 U/L Alanine Aminotransferase (ALT/SGPT) 36 U/L Alkaline Phosphatase 144 U/L Total Protein 7.4 g/dL Albumin 3.2 g/dL Albumin/Globulin Ratio 0.8 Test 11/27/20 07:35 Glucose (Fingerstick) 124 mg/dL Current Medications Medications (Trade) Dose Ordered Sig/Leonides Route PRN Reason Start Time Stop Time Status Last Admin Dose Admin Multi-Ingredient Ointment (Analgesic [place]) 1 swathi PRN QID PRN TP MUSCLE PAIN 11/21/20 21:00 Al Hydroxide/Mg Hydroxide (Mylanta Plus Xs) 15 ml PRN AFTMEALHC PRN PO DYSPEPSIA 11/21/20 21:00 Magnesium Hydroxide (Milk Of Magnesia) 2,400 mg PRN QHS PRN PO 1ST CHOICE CONSTIPATION 11/21/20 21:00 Acetaminophen (Tylenol) 650 mg PRN Q4HRS PRN PO MILD PAIN / TEMP > 100.3'F 11/21/20 21:45 Amoxicillin/ Clavulanate Potassium (Augmentin 875/ 125mg) 1 tab BID PO 11/22/20 09:00 11/24/20 21:01 DC 11/24/20 20:55 Aspirin (Aspirin Enteric Coated) 81 mg DAILY PO 11/22/20 09:00 11/27/20 08:42 Bisacodyl (Dulcolax Tab) 5 mg PRN DAILY PRN PO 2ND CHOICE CONSTIPATION 11/21/20 21:45 Furosemide (Lasix) 40 mg DAILY PO 11/22/20 09:00 11/27/20 08:42 Acetaminophen/ Hydrocodone Bitart (Lortab 5/325) 1 tab PRN BID PRN PO PAIN 11/21/20 21:45 Ibuprofen (Motrin) 200 mg PRN Q6HRS PRN PO MILD PAIN / TEMP > 100.3'F 11/21/20 21:45 Albuterol/ Ipratropium (Duoneb) 3 ml PRN BID PRN NEB SHORTNESS OF BREATH 11/21/20 21:45 Levothyroxine Sodium (Synthroid) 112 mcg DAILY06 PO 11/22/20 06:00 11/27/20 05:39 Lorazepam (Ativan) 0.5 mg TID PO 11/21/20 22:00 11/27/20 08:46 Zolpidem Tartrate (Ambien) 5 mg HS PO 11/21/20 22:00 11/26/20 20:44 Betamethasone Dipropion Augmented (Betamethasone Dp Aug 0.05% Cream) 1 swathi PRN BID PRN TP RASH 11/21/20 22:15 Multi-Ingred Cream/Lotion/Oil/ Oint (Hydrocerin) 1 swathi PRN BID PRN TP Dry Hands 11/21/20 22:00 Guaifenesin (Robitussin Dm) 10 ml PRN Q8HRS PRN PO COUGH 11/21/20 22:00 Insulin Human Lispro (HumaLOG) 20 units TIDWMEALS SQ 11/22/20 08:00 11/27/20 08:41 Insulin Glargine (Lantus Syringe) 30 unit BID SQ 11/21/20 22:00 11/27/20 08:40 Magnesium Chloride (Mag Delay) 64 mg DAILY PO 11/22/20 09:00 11/27/20 08:43 Non-Formulary Medication (Menthol (Biofreeze)) 1 swathi QID PRN TP MUSCLE PAIN 11/21/20 21:45 UNV Pantoprazole Sodium (Protonix) 40 mg DAILY PO 11/22/20 09:00 11/27/20 08:44 Oxybutynin Chloride (Ditropan) 5 mg DAILY PO 11/22/20 09:00 11/27/20 08:43 Polyethylene Glycol (miraLAX) 17 gm DAILY PO 11/22/20 09:00 11/27/20 08:42 Potassium Chloride (Klor-Con) 10 meq DAILY PO 11/22/20 09:00 11/27/20 08:43 Propranolol HCl (Inderal) 40 mg DAILY PO 11/22/20 09:00 11/27/20 08:46 Quetiapine Fumarate (SEROquel) 600 mg HS PO 11/21/20 22:15 11/26/20 20:44 Saliva Substitute (Biotene Moisturizing Mouth) 2 spray PRN TID PRN PO DRY MOUTH 11/21/20 22:15 Non-Formulary Medication (Semaglutide (Ozempic)) 1 mg QFR SQ 11/23/20 16:00 UNV Pentoxifylline (TRENtal) 400 mg TIDWMEALS PO 11/22/20 08:00 11/27/20 08:42 Vitamin D (Vitamin D3) 2,000 unit DAILY PO 11/22/20 09:00 11/27/20 08:42 Lactobacillus Rhamnosus (Culturelle) 1 cap BID PO 11/22/20 09:00 11/27/20 08:42 I have reviewed the current psychotropics carefully including drug interactions. Risk benefit ratio favors no change other than as noted in my dictated progress note. Diagnosis: Problems: (1) Mild cognitive impairment (2) Schizoaffective disorder, bipolar type (3) Anxiety disorder, unspecified (4) Intellectual disability (5) Impulse disorder, unspecified (6) Bipolar disorder, curr episode mixed, severe, with psychotic features RAJIV VELAZQUEZ MD Nov 27, 2020 09:11
[2020-11-27 16:09] VITALS: BP 129/84
[2020-11-27] MEDS: QUEtiapine 100 MG TABLET. PO SCH (19:52)
[2020-11-27] MEDS: MIRTAZAPINE 7.5 MG TABLET. PO SCH (19:54)
--- NOTE | 2020-11-27 21:05 | PDOC ---
Exam Note: Donte Note: Please also refer to the separate dictated note~for this date of service dictated separately.~Patient seen individually. Discussed the patient with Nursing staff reviewed the chart.~Reviewed interim history and current functioning. Reviewed vital signs,~Labs/ Radiology~and current medications noted below. Continue current treatment with the changes noted in the dictated addendum note Assessment: Vital Signs/I&O: Vital Signs Date Time Temp Pulse Resp B/P (MAP) Pulse Ox O2 Delivery O2 Flow Rate FiO2 11/27/20 16:09 97.4 76 18 129/84 (99) 98 11/24/20 15:39 Room Air I & O 11/26/20 11/26/20 11/27/20 15:00 23:00 07:00 Intake Total 960 ml 360 ml Balance 960 ml 360 ml Labs: Laboratory Tests Test 11/27/20 06:38 11/27/20 07:35 11/27/20 12:01 11/27/20 16:57 White Blood Count 10.0 x10^3/uL (4.0-11.0) Red Blood Count 4.92 x10^6/uL (3.50-5.40) Hemoglobin 13.8 g/dL (12.0-15.5) Hematocrit 41.3 % (36.0-47.0) Mean Corpuscular Volume 84 fL (79-100) Mean Corpuscular Hemoglobin 28 pg (25-35) Mean Corpuscular Hemoglobin Concent 33 g/dL (31-37) Red Cell Distribution Width 12.8 % (11.5-14.5) Platelet Count 261 x10^3/uL (140-400) Neutrophils (%) (Auto) 58 % (31-73) Lymphocytes (%) (Auto) 29 % (24-48) Monocytes (%) (Auto) 9 % (0-9) Eosinophils (%) (Auto) 3 % (0-3) Basophils (%) (Auto) 1 % (0-3) Neutrophils # (Auto) 5.8 x10^3uL (1.8-7.7) Lymphocytes # (Auto) 2.9 x10^3/uL (1.0-4.8) Monocytes # (Auto) 0.9 x10^3/uL (0.0-1.1) Eosinophils # (Auto) 0.3 x10^3/uL (0.0-0.7) Basophils # (Auto) 0.1 x10^3/uL (0.0-0.2) Sodium Level 139 mmol/L (136-145) Potassium Level 3.3 mmol/L (3.5-5.1) L Chloride Level 102 mmol/L (98-107) Carbon Dioxide Level 26 mmol/L (21-32) Anion Gap 11 (6-14) Blood Urea Nitrogen 17 mg/dL (7-20) Creatinine 0.8 mg/dL (0.6-1.0) Estimated GFR (Cockcroft-Gault) 72.0 BUN/Creatinine Ratio 21 (6-20) H Glucose Level 108 mg/dL (70-99) H Calcium Level 9.2 mg/dL (8.5-10.1) Total Bilirubin 0.4 mg/dL (0.2-1.0) Aspartate Amino Transferase (AST) 30 U/L (15-37) Alanine Aminotransferase (ALT) 36 U/L (14-59) Alkaline Phosphatase 144 U/L (46-116) H Total Protein 7.4 g/dL (6.4-8.2) Albumin 3.2 g/dL (3.4-5.0) L Albumin/Globulin Ratio 0.8 (1.0-1.7) L Glucose (Fingerstick) 124 mg/dL (70-99) H 172 mg/dL (70-99) H 143 mg/dL (70-99) H Test 11/27/20 19:03 Glucose (Fingerstick) 206 mg/dL (70-99) H Current Medications: Meds: Laboratory Tests Test 11/27/20 06:38 11/27/20 07:35 11/27/20 12:01 11/27/20 16:57 White Blood Count 10.0 x10^3/uL Red Blood Count 4.92 x10^6/uL Hemoglobin 13.8 g/dL Hematocrit 41.3 % Mean Corpuscular Volume 84 fL Mean Corpuscular Hemoglobin 28 pg Mean Corpuscular Hemoglobin Concent 33 g/dL Red Cell Distribution Width 12.8 % Platelet Count 261 x10^3/uL Neutrophils (%) (Auto) 58 % Lymphocytes (%) (Auto) 29 % Monocytes (%) (Auto) 9 % Eosinophils (%) (Auto) 3 % Basophils (%) (Auto) 1 % Neutrophils # (Auto) 5.8 x10^3uL Lymphocytes # (Auto) 2.9 x10^3/uL Monocytes # (Auto) 0.9 x10^3/uL Eosinophils # (Auto) 0.3 x10^3/uL Basophils # (Auto) 0.1 x10^3/uL Sodium Level 139 mmol/L Potassium Level 3.3 mmol/L Chloride Level 102 mmol/L Carbon Dioxide Level 26 mmol/L Anion Gap 11 Blood Urea Nitrogen 17 mg/dL Creatinine 0.8 mg/dL Estimated GFR (Cockcroft-Gault) 72.0 BUN/Creatinine Ratio 21 Glucose Level 108 mg/dL Calcium Level 9.2 mg/dL Total Bilirubin 0.4 mg/dL Aspartate Amino Transf (AST/SGOT) 30 U/L Alanine Aminotransferase (ALT/SGPT) 36 U/L Alkaline Phosphatase 144 U/L Total Protein 7.4 g/dL Albumin 3.2 g/dL Albumin/Globulin Ratio 0.8 Glucose (Fingerstick) 124 mg/dL 172 mg/dL 143 mg/dL Test 11/27/20 19:03 Glucose (Fingerstick) 206 mg/dL Current Medications Medications (Trade) Dose Ordered Sig/Leonides Route PRN Reason Start Time Stop Time Status Last Admin Dose Admin Multi-Ingredient Ointment (Analgesic [place]) 1 swathi PRN QID PRN TP MUSCLE PAIN 11/21/20 21:00 Al Hydroxide/Mg Hydroxide (Mylanta Plus Xs) 15 ml PRN AFTMEALHC PRN PO DYSPEPSIA 11/21/20 21:00 Magnesium Hydroxide (Milk Of Magnesia) 2,400 mg PRN QHS PRN PO 1ST CHOICE CONSTIPATION 11/21/20 21:00 Acetaminophen (Tylenol) 650 mg PRN Q4HRS PRN PO MILD PAIN / TEMP > 100.3'F 11/21/20 21:45 Amoxicillin/ Clavulanate Potassium (Augmentin 875/ 125mg) 1 tab BID PO 11/22/20 09:00 11/24/20 21:01 DC 11/24/20 20:55 Aspirin (Aspirin Enteric Coated) 81 mg DAILY PO 11/22/20 09:00 11/27/20 08:42 Bisacodyl (Dulcolax Tab) 5 mg PRN DAILY PRN PO 2ND CHOICE CONSTIPATION 11/21/20 21:45 Furosemide (Lasix) 40 mg DAILY PO 11/22/20 09:00 11/27/20 08:42 Acetaminophen/ Hydrocodone Bitart (Lortab 5/325) 1 tab PRN BID PRN PO mod-sev PAIN 11/21/20 21:45 Ibuprofen (Motrin) 200 mg PRN Q6HRS PRN PO MILD PAIN / TEMP > 100.3'F 11/21/20 21:45 Cancel Albuterol/ Ipratropium (Duoneb) 3 ml PRN BID PRN NEB SHORTNESS OF BREATH 11/21/20 21:45 Levothyroxine Sodium (Synthroid) 112 mcg DAILY06 PO 11/22/20 06:00 11/27/20 05:39 Lorazepam (Ativan) 0.5 mg TID PO 11/21/20 22:00 11/27/20 19:55 Zolpidem Tartrate (Ambien) 5 mg HS PO 11/21/20 22:00 11/27/20 18:02 DC 11/26/20 20:44 Betamethasone Dipropion Augmented (Betamethasone Dp Aug 0.05% Cream) 1 swathi PRN BID PRN TP RASH 11/21/20 22:15 Multi-Ingred Cream/Lotion/Oil/ Oint (Hydrocerin) 1 swathi PRN BID PRN TP Dry Hands 11/21/20 22:00 Guaifenesin (Robitussin Dm) 10 ml PRN Q8HRS PRN PO COUGH 11/21/20 22:00 Insulin Human Lispro (HumaLOG) 20 units TIDWMEALS SQ 11/22/20 08:00 11/27/20 17:11 Insulin Glargine (Lantus Syringe) 30 unit BID SQ 11/21/20 22:00 11/27/20 08:40 Magnesium Chloride (Mag Delay) 64 mg DAILY PO 11/22/20 09:00 11/27/20 08:43 Non-Formulary Medication (Menthol (Biofreeze)) 1 swathi QID PRN TP MUSCLE PAIN 11/21/20 21:45 UNV Pantoprazole Sodium (Protonix) 40 mg DAILY PO 11/22/20 09:00 11/27/20 08:44 Oxybutynin Chloride (Ditropan) 5 mg DAILY PO 11/22/20 09:00 11/27/20 08:43 Polyethylene Glycol (miraLAX) 17 gm DAILY PO 11/22/20 09:00 11/27/20 08:42 Potassium Chloride (Klor-Con) 10 meq DAILY PO 11/22/20 09:00 11/27/20 08:43 Propranolol HCl (Inderal) 40 mg DAILY PO 11/22/20 09:00 11/27/20 08:46 Quetiapine Fumarate (SEROquel) 600 mg HS PO 11/21/20 22:15 11/27/20 19:52 Saliva Substitute (Biotene Moisturizing Mouth) 2 spray PRN TID PRN PO DRY MOUTH 11/21/20 22:15 Non-Formulary Medication (Semaglutide (Ozempic)) 1 mg QFR SQ 11/23/20 16:00 UNV Pentoxifylline (TRENtal) 400 mg TIDWMEALS PO 11/22/20 08:00 11/27/20 17:11 Vitamin D (Vitamin D3) 2,000 unit DAILY PO 11/22/20 09:00 11/27/20 08:42 Lactobacillus Rhamnosus (Culturelle) 1 cap BID PO 11/22/20 09:00 11/27/20 19:52 Mirtazapine (Remeron) 7.5 mg QHS PO 11/27/20 21:00 11/27/20 19:54 Current Medications Medications (Trade) Dose Ordered Sig/Leonides Route PRN Reason Start Time Stop Time Status Last Admin Dose Admin Mirtazapine (Remeron) 7.5 mg QHS PO 11/27/20 21:00 11/27/20 19:54 I have reviewed the current psychotropics carefully including drug interactions. Risk benefit ratio favors no change other than as noted in my dictated progress note. Diagnosis: Problems: (1) Mild cognitive impairment (2) Schizoaffective disorder, bipolar type (3) Anxiety disorder, unspecified (4) Intellectual disability (5) Impulse disorder, unspecified (6) Bipolar disorder, curr episode mixed, severe, with psychotic features RAJIV VELAZQUEZ MD Nov 27, 2020 21:05
[2020-11-28] MEDS: INSULIN GLARGINE SYRINGE. SQ SCH ×3 (00:15→19:56)
[2020-11-28] MEDS: LEVOTHYROXINE 112 MCG TABLET PO SCH (05:39)
[2020-11-28 06:35] VITALS: BP 136/86
[2020-11-28] MEDS: MAGNESIUM CHLORIDE ER 64 MG TABLET.ER PO SCH (08:25)
[2020-11-28] MEDS: OXYBUTYNIN CHLORIDE 5 MG TABLET PO SCH (08:25)
[2020-11-28] MEDS: PANTOPRAZOLE 40 MG TABLET. PO SCH (08:25)
[2020-11-28] MEDS: POTASSIUM CHLORIDE 10 MEQ TABLET.ER. PO SCH (08:25)
[2020-11-28] MEDS: LACTOBACILLUS RHAMNOSUS GG 1 CAPSULE. PO SCH ×2 (08:25→19:54)
[2020-11-28] MEDS: CHOLECALCIFEROL (VITAMIN D3) 1,000 UNIT TABLET PO SCH (08:25)
[2020-11-28] MEDS: PENTOXIFYLLINE ER 400 MG TABLET.ER. PO SCH ×3 (08:25→16:52)
[2020-11-28] MEDS: FUROSEMIDE 40 MG TABLET PO SCH (08:26)
[2020-11-28] MEDS: POLYETHYLENE GLYCOL 3350 17 GM PACKET. PO SCH (08:26)
[2020-11-28] MEDS: ASPIRIN ENTERIC COATED 81 MG TABLET.DR. PO SCH (08:26)
[2020-11-28] MEDS: PROPRANOLOL 20 MG TABLET. PO SCH (08:27)
[2020-11-28] MEDS: INSULIN LISPRO 300 UNITS/3 ML VIAL. SQ SCH ×3 (08:30→16:56)
[2020-11-28] MEDS: LORazepam 0.5 MG TABLET PO SCH ×3 (08:33→19:58)
[2020-11-28 15:19] VITALS: BP 131/84
[2020-11-28] MEDS: HYDROcodone/APAP 5/325MG 1 TAB TABLET PO PRN (16:52)
[2020-11-28] MEDS: QUEtiapine 100 MG TABLET. PO SCH (19:54)
[2020-11-28] MEDS: MIRTAZAPINE 7.5 MG TABLET. PO SCH (19:54)
[2020-11-28] MEDS: DIVALPROEX ER 500 MG TAB.ER.24H PO SCH (19:58)
--- NOTE | 2020-11-28 21:04 | PDOC ---
Exam Note: Donte Note: This note is a late entry for 11/27/2020 covers elements not covered in my initial note. Subjective: The patient was reviewed on telehealth rounds in the evening of 11/27/2020 with Farzana COPELAND. Discussed with nursing staff, reviewed the chart. The patient slept 3-3/4 hours previous night. She has been attending groups, little less labile. We will change the Ambien 5 mg h.s. to Remeron 7.5 mg h.s. Review of Systems: Ambulation somewhat impaired. No CV, , pulmonary, eye, ENT system symptoms on review. Mental Status Exam: The patient is oriented to herself and situation. Speech has some latency. Often response is monosyllabic. Abstraction is fair. Computation is impaired. Language function is intact. Attention span is short. Mood and affect somewhat withdrawn but smiling at times. Laboratory Data: Reviewed as above. Impression: Schizoaffective disorder bipolar type mixed with psychotic features. Anxiety disorder unspecified. Impulse control disorder unspecified. Plan: Change Ambien to Remeron. Maintain Seroquel 600 mg h.s., Ativan 0.5 mg t.i.d. but we will gradually taper this. Adjust further as clinically indicated. Assessment: Vital Signs/I&O: Vital Signs Date Time Temp Pulse Resp B/P (MAP) Pulse Ox O2 Delivery O2 Flow Rate FiO2 11/28/20 20:11 18 Room Air 11/28/20 15:19 98.3 79 131/84 (100) 97 I & O 11/27/20 11/27/20 11/28/20 15:00 23:00 07:00 Intake Total 460 ml 520 ml Balance 460 ml 520 ml Labs: Laboratory Tests Test 11/28/20 00:11 11/28/20 07:35 11/28/20 11:33 11/28/20 16:51 Glucose (Fingerstick) 150 mg/dL (70-99) H 143 mg/dL (70-99) H 154 mg/dL (70-99) H 84 mg/dL (70-99) Test 11/28/20 19:46 Glucose (Fingerstick) 246 mg/dL (70-99) H Current Medications: Meds: Laboratory Tests Test 11/28/20 00:11 11/28/20 07:35 11/28/20 11:33 11/28/20 16:51 Glucose (Fingerstick) 150 mg/dL 143 mg/dL 154 mg/dL 84 mg/dL Test 11/28/20 19:46 Glucose (Fingerstick) 246 mg/dL Current Medications Medications (Trade) Dose Ordered Sig/Leonides Route PRN Reason Start Time Stop Time Status Last Admin Dose Admin Multi-Ingredient Ointment (Analgesic [place]) 1 swathi PRN QID PRN TP MUSCLE PAIN 11/21/20 21:00 Al Hydroxide/Mg Hydroxide (Mylanta Plus Xs) 15 ml PRN AFTMEALHC PRN PO DYSPEPSIA 11/21/20 21:00 Magnesium Hydroxide (Milk Of Magnesia) 2,400 mg PRN QHS PRN PO 1ST CHOICE CONSTIPATION 11/21/20 21:00 Acetaminophen (Tylenol) 650 mg PRN Q4HRS PRN PO MILD PAIN / TEMP > 100.3'F 11/21/20 21:45 Amoxicillin/ Clavulanate Potassium (Augmentin 875/ 125mg) 1 tab BID PO 11/22/20 09:00 11/24/20 21:01 DC 11/24/20 20:55 Aspirin (Aspirin Enteric Coated) 81 mg DAILY PO 11/22/20 09:00 11/28/20 08:26 Bisacodyl (Dulcolax Tab) 5 mg PRN DAILY PRN PO 2ND CHOICE CONSTIPATION 11/21/20 21:45 Furosemide (Lasix) 40 mg DAILY PO 11/22/20 09:00 11/28/20 08:26 Acetaminophen/ Hydrocodone Bitart (Lortab 5/325) 1 tab PRN BID PRN PO mod-sev PAIN 11/21/20 21:45 11/28/20 16:52 Ibuprofen (Motrin) 200 mg PRN Q6HRS PRN PO MILD PAIN / TEMP > 100.3'F 11/21/20 21:45 Cancel Albuterol/ Ipratropium (Duoneb) 3 ml PRN BID PRN NEB SHORTNESS OF BREATH 11/21/20 21:45 Levothyroxine Sodium (Synthroid) 112 mcg DAILY06 PO 11/22/20 06:00 11/28/20 05:39 Lorazepam (Ativan) 0.5 mg TID PO 11/21/20 22:00 11/28/20 19:58 Zolpidem Tartrate (Ambien) 5 mg HS PO 11/21/20 22:00 11/27/20 18:02 DC 11/26/20 20:44 Betamethasone Dipropion Augmented (Betamethasone Dp Aug 0.05% Cream) 1 swathi PRN BID PRN TP RASH 11/21/20 22:15 Multi-Ingred Cream/Lotion/Oil/ Oint (Hydrocerin) 1 swathi PRN BID PRN TP Dry Hands 11/21/20 22:00 Guaifenesin (Robitussin Dm) 10 ml PRN Q8HRS PRN PO COUGH 11/21/20 22:00 Insulin Human Lispro (HumaLOG) 20 units TIDWMEALS SQ 11/22/20 08:00 11/28/20 11:46 Insulin Glargine (Lantus Syringe) 30 unit BID SQ 11/21/20 22:00 11/28/20 19:56 Magnesium Chloride (Mag Delay) 64 mg DAILY PO 11/22/20 09:00 11/28/20 08:25 Non-Formulary Medication (Menthol (Biofreeze)) 1 swathi QID PRN TP MUSCLE PAIN 11/21/20 21:45 UNV Pantoprazole Sodium (Protonix) 40 mg DAILY PO 11/22/20 09:00 11/28/20 08:25 Oxybutynin Chloride (Ditropan) 5 mg DAILY PO 11/22/20 09:00 11/28/20 08:25 Polyethylene Glycol (miraLAX) 17 gm DAILY PO 11/22/20 09:00 11/28/20 08:26 Potassium Chloride (Klor-Con) 10 meq DAILY PO 11/22/20 09:00 11/28/20 08:25 Propranolol HCl (Inderal) 40 mg DAILY PO 11/22/20 09:00 11/28/20 08:27 Quetiapine Fumarate (SEROquel) 600 mg HS PO 11/21/20 22:15 11/28/20 19:54 Saliva Substitute (Biotene Moisturizing Mouth) 2 spray PRN TID PRN PO DRY MOUTH 11/21/20 22:15 Non-Formulary Medication (Semaglutide (Ozempic)) 1 mg QFR SQ 11/23/20 16:00 UNV Pentoxifylline (TRENtal) 400 mg TIDWMEALS PO 11/22/20 08:00 11/28/20 16:52 Vitamin D (Vitamin D3) 2,000 unit DAILY PO 11/22/20 09:00 11/28/20 08:25 Lactobacillus Rhamnosus (Culturelle) 1 cap BID PO 11/22/20 09:00 11/28/20 19:54 Mirtazapine (Remeron) 7.5 mg QHS PO 11/27/20 21:00 11/28/20 19:54 Divalproex Sodium (Depakote Er) 500 mg QHS PO 11/28/20 21:00 11/28/20 19:58 Current Medications Medications (Trade) Dose Ordered Sig/Leonides Route PRN Reason Start Time Stop Time Status Last Admin Dose Admin Divalproex Sodium (Depakote Er) 500 mg QHS PO 11/28/20 21:00 11/28/20 19:58 I have reviewed the current psychotropics carefully including drug interactions. Risk benefit ratio favors no change other than as noted in my dictated progress note. Diagnosis: Problems: (1) Mild cognitive impairment (2) Schizoaffective disorder, bipolar type (3) Anxiety disorder, unspecified (4) Impulse disorder, unspecified (5) Bipolar disorder, curr episode mixed, severe, with psychotic features RAJIV VELAZQUEZ MD Nov 28, 2020 21:04
--- NOTE | 2020-11-28 21:05 | PDOC ---
Exam Note: Donte Note: Please also refer to the separate dictated note~for this date of service dictated separately.~Patient seen individually. Discussed the patient with Nursing staff reviewed the chart.~Reviewed interim history and current functioning. Reviewed vital signs,~Labs/ Radiology~and current medications noted below. Continue current treatment with the changes noted in the dictated addendum note Assessment: Vital Signs/I&O: Vital Signs Date Time Temp Pulse Resp B/P (MAP) Pulse Ox O2 Delivery O2 Flow Rate FiO2 11/28/20 20:11 18 Room Air 11/28/20 15:19 98.3 79 131/84 (100) 97 I & O 11/27/20 11/27/20 11/28/20 15:00 23:00 07:00 Intake Total 460 ml 520 ml Balance 460 ml 520 ml Labs: Laboratory Tests Test 11/28/20 00:11 11/28/20 07:35 11/28/20 11:33 11/28/20 16:51 Glucose (Fingerstick) 150 mg/dL (70-99) H 143 mg/dL (70-99) H 154 mg/dL (70-99) H 84 mg/dL (70-99) Test 11/28/20 19:46 Glucose (Fingerstick) 246 mg/dL (70-99) H Current Medications: Meds: Laboratory Tests Test 11/28/20 00:11 11/28/20 07:35 11/28/20 11:33 11/28/20 16:51 Glucose (Fingerstick) 150 mg/dL 143 mg/dL 154 mg/dL 84 mg/dL Test 11/28/20 19:46 Glucose (Fingerstick) 246 mg/dL Current Medications Medications (Trade) Dose Ordered Sig/Leonides Route PRN Reason Start Time Stop Time Status Last Admin Dose Admin Multi-Ingredient Ointment (Analgesic [place]) 1 swathi PRN QID PRN TP MUSCLE PAIN 11/21/20 21:00 Al Hydroxide/Mg Hydroxide (Mylanta Plus Xs) 15 ml PRN AFTMEALHC PRN PO DYSPEPSIA 11/21/20 21:00 Magnesium Hydroxide (Milk Of Magnesia) 2,400 mg PRN QHS PRN PO 1ST CHOICE CONSTIPATION 11/21/20 21:00 Acetaminophen (Tylenol) 650 mg PRN Q4HRS PRN PO MILD PAIN / TEMP > 100.3'F 1/13/21 21:45 Amoxicillin/ Clavulanate Potassium (Augmentin 875/ 125mg) 1 tab BID PO 11/22/20 09:00 11/24/20 21:01 DC 11/24/20 20:55 Aspirin (Aspirin Enteric Coated) 81 mg DAILY PO 11/22/20 09:00 11/28/20 08:26 Bisacodyl (Dulcolax Tab) 5 mg PRN DAILY PRN PO 2ND CHOICE CONSTIPATION 11/21/20 21:45 Furosemide (Lasix) 40 mg DAILY PO 11/22/20 09:00 11/28/20 08:26 Acetaminophen/ Hydrocodone Bitart (Lortab 5/325) 1 tab PRN BID PRN PO mod-sev PAIN 11/21/20 21:45 11/28/20 16:52 Ibuprofen (Motrin) 200 mg PRN Q6HRS PRN PO MILD PAIN / TEMP > 100.3'F 11/21/20 21:45 Cancel Albuterol/ Ipratropium (Duoneb) 3 ml PRN BID PRN NEB SHORTNESS OF BREATH 11/21/20 21:45 Levothyroxine Sodium (Synthroid) 112 mcg DAILY06 PO 11/22/20 06:00 11/28/20 05:39 Lorazepam (Ativan) 0.5 mg TID PO 11/21/20 22:00 11/28/20 19:58 Zolpidem Tartrate (Ambien) 5 mg HS PO 11/21/20 22:00 11/27/20 18:02 DC 11/26/20 20:44 Betamethasone Dipropion Augmented (Betamethasone Dp Aug 0.05% Cream) 1 swatih PRN BID PRN TP RASH 11/21/20 22:15 Multi-Ingred Cream/Lotion/Oil/ Oint (Hydrocerin) 1 swathi PRN BID PRN TP Dry Hands 11/21/20 22:00 Guaifenesin (Robitussin Dm) 10 ml PRN Q8HRS PRN PO COUGH 11/21/20 22:00 Insulin Human Lispro (HumaLOG) 20 units TIDWMEALS SQ 11/22/20 08:00 11/28/20 11:46 Insulin Glargine (Lantus Syringe) 30 unit BID SQ 11/21/20 22:00 11/28/20 19:56 Magnesium Chloride (Mag Delay) 64 mg DAILY PO 11/22/20 09:00 11/28/20 08:25 Non-Formulary Medication (Menthol (Biofreeze)) 1 swathi QID PRN TP MUSCLE PAIN 11/21/20 21:45 UNV Pantoprazole Sodium (Protonix) 40 mg DAILY PO 11/22/20 09:00 11/28/20 08:25 Oxybutynin Chloride (Ditropan) 5 mg DAILY PO 11/22/20 09:00 11/28/20 08:25 Polyethylene Glycol (miraLAX) 17 gm DAILY PO 11/22/20 09:00 11/28/20 08:26 Potassium Chloride (Klor-Con) 10 meq DAILY PO 11/22/20 09:00 11/28/20 08:25 Propranolol HCl (Inderal) 40 mg DAILY PO 11/22/20 09:00 11/28/20 08:27 Quetiapine Fumarate (SEROquel) 600 mg HS PO 11/21/20 22:15 11/28/20 19:54 Saliva Substitute (Biotene Moisturizing Mouth) 2 spray PRN TID PRN PO DRY MOUTH 11/21/20 22:15 Non-Formulary Medication (Semaglutide (Ozempic)) 1 mg QFR SQ 11/23/20 16:00 UNV Pentoxifylline (TRENtal) 400 mg TIDWMEALS PO 11/22/20 08:00 11/28/20 16:52 Vitamin D (Vitamin D3) 2,000 unit DAILY PO 11/22/20 09:00 11/28/20 08:25 Lactobacillus Rhamnosus (Culturelle) 1 cap BID PO 11/22/20 09:00 11/28/20 19:54 Mirtazapine (Remeron) 7.5 mg QHS PO 11/27/20 21:00 11/28/20 19:54 Divalproex Sodium (Depakote Er) 500 mg QHS PO 11/28/20 21:00 11/28/20 19:58 Current Medications Medications (Trade) Dose Ordered Sig/Leonides Route PRN Reason Start Time Stop Time Status Last Admin Dose Admin Divalproex Sodium (Depakote Er) 500 mg QHS PO 11/28/20 21:00 11/28/20 19:58 I have reviewed the current psychotropics carefully including drug interactions. Risk benefit ratio favors no change other than as noted in my dictated progress note. Diagnosis: Problems: (1) Mild cognitive impairment (2) Schizoaffective disorder, bipolar type (3) Anxiety disorder, unspecified (4) Impulse disorder, unspecified (5) Bipolar disorder, curr episode mixed, severe, with psychotic features RAJIV VELAZQUEZ MD Nov 28, 2020 21:05
[2020-11-29] MEDS: LEVOTHYROXINE 112 MCG TABLET PO SCH (06:12)
[2020-11-29 06:24] VITALS: BP 147/90
--- NOTE | 2020-11-29 08:09 | PDOC ---
Exam Note: Donte Note: This note is a late entry for 11/28/2020 covers elements not covered in my initial note. Subjective: The patient was reviewed on telehealth rounds in the evening of 11/28/2020 with Milla COPELAND. Discussed with nursing staff, reviewed the chart. The patient slept 5-3/4 hours previous night. According to the nursing report, the patient has been withdrawn to her room, somewhat anxious and restless at times. Review of Systems: No CV, , pulmonary, eye, ENT system symptoms on review. Mental Status Exam: The patient is oriented to herself and situation. Speech has moderate latency. Often response is monosyllabic. Abstraction is fair. Computation is impaired. Language function is intact. Mood and affect somewhat withdrawn, anxious, labile at times. Laboratory Data: Reviewed. Impression: Schizoaffective disorder, bipolar type mixed with psychotic features. Anxiety disorder unspecified. Impulse control disorder unspecified. Plan: From a psychiatric standpoint, maintain Seroquel 600 mg h.s., Ativan 0.5 mg t.i.d., Remeron 7.5 mg h.s. We will add Depakote ER 500 mg h.s. for her schizoaffective disorder bipolar type. Check CBC, CMP, valproic acid level in 3 days. Rest unchanged. Assessment: Vital Signs/I&O: Vital Signs Date Time Temp Pulse Resp B/P (MAP) Pulse Ox O2 Delivery O2 Flow Rate FiO2 11/29/20 06:24 97.3 80 17 147/90 (109) 97 Room Air I & O 0 11/28/20 11/28/20 11/29/20 15:00 23:00 07:00 Intake Total 700 ml 600 ml Balance 700 ml 600 ml Labs: Laboratory Tests Test 11/28/20 11:33 11/28/20 16:51 11/28/20 19:46 11/29/20 07:47 Glucose (Fingerstick) 154 mg/dL (70-99) H 84 mg/dL (70-99) 246 mg/dL (70-99) H 148 mg/dL (70-99) H Current Medications: Meds: Laboratory Tests Test 11/28/20 11:33 11/28/20 16:51 11/28/20 19:46 11/29/20 07:47 Glucose (Fingerstick) 154 mg/dL 84 mg/dL 246 mg/dL 148 mg/dL Current Medications Medications (Trade) Dose Ordered Sig/Leonides Route PRN Reason Start Time Stop Time Status Last Admin Dose Admin Multi-Ingredient Ointment (Analgesic [place]) 1 swathi PRN QID PRN TP MUSCLE PAIN 11/21/20 21:00 Al Hydroxide/Mg Hydroxide (Mylanta Plus Xs) 15 ml PRN AFTMEALHC PRN PO DYSPEPSIA 11/21/20 21:00 Magnesium Hydroxide (Milk Of Magnesia) 2,400 mg PRN QHS PRN PO 1ST CHOICE CONSTIPATION 11/21/20 21:00 Acetaminophen (Tylenol) 650 mg PRN Q4HRS PRN PO MILD PAIN / TEMP > 100.3'F 11/21/20 21:45 Amoxicillin/ Clavulanate Potassium (Augmentin 875/ 125mg) 1 tab BID PO 11/22/20 09:00 11/24/20 21:01 DC 11/24/20 20:55 Aspirin (Aspirin Enteric Coated) 81 mg DAILY PO 11/22/20 09:00 11/28/20 08:26 Bisacodyl (Dulcolax Tab) 5 mg PRN DAILY PRN PO 2ND CHOICE CONSTIPATION 11/21/20 21:45 Furosemide (Lasix) 40 mg DAILY PO 11/22/20 09:00 11/28/20 08:26 Acetaminophen/ Hydrocodone Bitart (Lortab 5/325) 1 tab PRN BID PRN PO mod-sev PAIN 11/21/20 21:45 11/28/20 16:52 Ibuprofen (Motrin) 200 mg PRN Q6HRS PRN PO MILD PAIN / TEMP > 100.3'F 11/21/20 21:45 Cancel Albuterol/ Ipratropium (Duoneb) 3 ml PRN BID PRN NEB SHORTNESS OF BREATH 11/21/20 21:45 Levothyroxine Sodium (Synthroid) 112 mcg DAILY06 PO 11/22/20 06:00 11/29/20 06:12 Lorazepam (Ativan) 0.5 mg TID PO 11/21/20 22:00 11/28/20 19:58 Zolpidem Tartrate (Ambien) 5 mg HS PO 11/21/20 22:00 11/27/20 18:02 DC 11/26/20 20:44 Betamethasone Dipropion Augmented (Betamethasone Dp Aug 0.05% Cream) 1 swathi PRN BID PRN TP RASH 11/21/20 22:15 Multi-Ingred Cream/Lotion/Oil/ Oint (Hydrocerin) 1 swathi PRN BID PRN TP Dry Hands 11/21/20 22:00 Guaifenesin (Robitussin Dm) 10 ml PRN Q8HRS PRN PO COUGH 11/21/20 22:00 Insulin Human Lispro (HumaLOG) 20 units TIDWMEALS SQ 11/22/20 08:00 11/28/20 11:46 Insulin Glargine (Lantus Syringe) 30 unit BID SQ 11/21/20 22:00 11/28/20 19:56 Magnesium Chloride (Mag Delay) 64 mg DAILY PO 11/22/20 09:00 11/28/20 08:25 Non-Formulary Medication (Menthol (Biofreeze)) 1 swathi QID PRN TP MUSCLE PAIN 11/21/20 21:45 UNV Pantoprazole Sodium (Protonix) 40 mg DAILY PO 11/22/20 09:00 11/28/20 08:25 Oxybutynin Chloride (Ditropan) 5 mg DAILY PO 11/22/20 09:00 11/28/20 08:25 Polyethylene Glycol (miraLAX) 17 gm DAILY PO 11/22/20 09:00 11/28/20 08:26 Potassium Chloride (Klor-Con) 10 meq DAILY PO 11/22/20 09:00 11/28/20 08:25 Propranolol HCl (Inderal) 40 mg DAILY PO 11/22/20 09:00 11/28/20 08:27 Quetiapine Fumarate (SEROquel) 600 mg HS PO 11/21/20 22:15 11/28/20 19:54 Saliva Substitute (Biotene Moisturizing Mouth) 2 spray PRN TID PRN PO DRY MOUTH 11/21/20 22:15 Non-Formulary Medication (Semaglutide (Ozempic)) 1 mg QFR SQ 11/23/20 16:00 UNV Pentoxifylline (TRENtal) 400 mg TIDWMEALS PO 11/22/20 08:00 11/28/20 16:52 Vitamin D (Vitamin D3) 2,000 unit DAILY PO 11/22/20 09:00 11/28/20 08:25 Lactobacillus Rhamnosus (Culturelle) 1 cap BID PO 11/22/20 09:00 11/28/20 19:54 Mirtazapine (Remeron) 7.5 mg QHS PO 11/27/20 21:00 11/28/20 19:54 Divalproex Sodium (Depakote Er) 500 mg QHS PO 11/28/20 21:00 11/28/20 19:58 Current Medications Medications (Trade) Dose Ordered Sig/Leonides Route PRN Reason Start Time Stop Time Status Last Admin Dose Admin Divalproex Sodium (Depakote Er) 500 mg QHS PO 11/28/20 21:00 11/28/20 19:58 I have reviewed the current psychotropics carefully including drug interactions. Risk benefit ratio favors no change other than as noted in my dictated progress note. Diagnosis: Problems: (1) Mild cognitive impairment (2) Schizoaffective disorder, bipolar type (3) Anxiety disorder, unspecified (4) Intellectual disability (5) Impulse disorder, unspecified (6) Bipolar disorder, curr episode mixed, severe, with psychotic features RAJIV VELAZQUEZ MD Nov 29, 2020 08:09
[2020-11-29] MEDS: FUROSEMIDE 40 MG TABLET PO SCH (08:16)
[2020-11-29] MEDS: POTASSIUM CHLORIDE 10 MEQ TABLET.ER. PO SCH (08:16)
[2020-11-29] MEDS: OXYBUTYNIN CHLORIDE 5 MG TABLET PO SCH (08:16)
[2020-11-29] MEDS: ASPIRIN ENTERIC COATED 81 MG TABLET.DR. PO SCH (08:16)
[2020-11-29] MEDS: LACTOBACILLUS RHAMNOSUS GG 1 CAPSULE. PO SCH ×2 (08:17→20:27)
[2020-11-29] MEDS: LORazepam 0.5 MG TABLET PO SCH ×3 (08:17→20:27)
[2020-11-29] MEDS: MAGNESIUM CHLORIDE ER 64 MG TABLET.ER PO SCH (08:17)
[2020-11-29] MEDS: PANTOPRAZOLE 40 MG TABLET. PO SCH (08:17)
[2020-11-29] MEDS: CHOLECALCIFEROL (VITAMIN D3) 1,000 UNIT TABLET PO SCH (08:17)
[2020-11-29] MEDS: PENTOXIFYLLINE ER 400 MG TABLET.ER. PO SCH ×3 (08:17→17:08)
[2020-11-29] MEDS: INSULIN LISPRO 300 UNITS/3 ML VIAL. SQ SCH ×3 (08:18→17:00)
[2020-11-29] MEDS: POLYETHYLENE GLYCOL 3350 17 GM PACKET. PO SCH (08:19)
[2020-11-29] MEDS: PROPRANOLOL 20 MG TABLET. PO SCH (08:21)
[2020-11-29] MEDS: INSULIN GLARGINE SYRINGE. SQ SCH ×2 (10:03→22:46)
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
[2020-11-29 16:17] VITALS: BP 122/88
[2020-11-29] MEDS: MIRTAZAPINE 7.5 MG TABLET. PO SCH (20:27)
[2020-11-29] MEDS: DIVALPROEX ER 500 MG TAB.ER.24H PO SCH (20:27)
[2020-11-29] MEDS: QUEtiapine 100 MG TABLET. PO SCH (20:28)
--- NOTE | 2020-11-29 21:04 | PDOC ---
Exam Note: Donte Note: Please also refer to the separate dictated note~for this date of service dictated separately.~Patient seen individually. Discussed the patient with Nursing staff reviewed the chart.~Reviewed interim history and current functioning. Reviewed vital signs,~Labs/ Radiology~and current medications noted below. Continue current treatment with the changes noted in the dictated addendum note Assessment: Vital Signs/I&O: Vital Signs Date Time Temp Pulse Resp B/P (MAP) Pulse Ox O2 Delivery O2 Flow Rate FiO2 11/29/20 16:17 97.8 87 20 122/88 (99) 97 11/29/20 06:24 Room Air I & O 11/28/20 11/28/20 11/29/20 15:00 23:00 07:00 Intake Total 700 ml 600 ml Balance 700 ml 600 ml Labs: Laboratory Tests Test 11/29/20 07:47 11/29/20 11:51 11/29/20 16:59 11/29/20 19:18 Glucose (Fingerstick) 148 mg/dL (70-99) H 204 mg/dL (70-99) H 91 mg/dL (70-99) 220 mg/dL (70-99) H Current Medications: Meds: Laboratory Tests Test 11/29/20 07:47 11/29/20 11:51 11/29/20 16:59 11/29/20 19:18 Glucose (Fingerstick) 148 mg/dL 204 mg/dL 91 mg/dL 220 mg/dL Current Medications Medications (Trade) Dose Ordered Sig/Leonides Route PRN Reason Start Time Stop Time Status Last Admin Dose Admin Multi-Ingredient Ointment (Analgesic [place]) 1 swathi PRN QID PRN TP MUSCLE PAIN 11/21/20 21:00 Al Hydroxide/Mg Hydroxide (Mylanta Plus Xs) 15 ml PRN AFTMEALHC PRN PO DYSPEPSIA 11/21/20 21:00 Magnesium Hydroxide (Milk Of Magnesia) 2,400 mg PRN QHS PRN PO 1ST CHOICE CONSTIPATION 11/21/20 21:00 Acetaminophen (Tylenol) 650 mg PRN Q4HRS PRN PO MILD PAIN / TEMP > 100.3'F 11/21/20 21:45 Amoxicillin/ Clavulanate Potassium (Augmentin 875/ 125mg) 1 tab BID PO 11/22/20 09:00 11/24/20 21:01 DC 11/24/20 20:55 Aspirin (Aspirin Enteric Coated) 81 mg DAILY PO 11/22/20 09:00 11/29/20 08:16 Bisacodyl (Dulcolax Tab) 5 mg PRN DAILY PRN PO 2ND CHOICE CONSTIPATION 11/21/20 21:45 Furosemide (Lasix) 40 mg DAILY PO 11/22/20 09:00 11/29/20 08:16 Acetaminophen/ Hydrocodone Bitart (Lortab 5/325) 1 tab PRN BID PRN PO mod-sev PAIN 11/21/20 21:45 11/28/20 16:52 Ibuprofen (Motrin) 200 mg PRN Q6HRS PRN PO MILD PAIN / TEMP > 100.3'F 11/21/20 21:45 Cancel Albuterol/ Ipratropium (Duoneb) 3 ml PRN BID PRN NEB SHORTNESS OF BREATH 11/21/20 21:45 Levothyroxine Sodium (Synthroid) 112 mcg DAILY06 PO 11/22/20 06:00 11/29/20 06:12 Lorazepam (Ativan) 0.5 mg TID PO 11/21/20 22:00 11/29/20 20:27 Zolpidem Tartrate (Ambien) 5 mg HS PO 11/21/20 22:00 11/27/20 18:02 DC 11/26/20 20:44 Betamethasone Dipropion Augmented (Betamethasone Dp Aug 0.05% Cream) 1 swathi PRN BID PRN TP RASH 11/21/20 22:15 Multi-Ingred Cream/Lotion/Oil/ Oint (Hydrocerin) 1 swathi PRN BID PRN TP Dry Hands 11/21/20 22:00 Guaifenesin (Robitussin Dm) 10 ml PRN Q8HRS PRN PO COUGH 11/21/20 22:00 Insulin Human Lispro (HumaLOG) 20 units TIDWMEALS SQ 11/22/20 08:00 11/29/20 12:03 Insulin Glargine (Lantus Syringe) 30 unit BID SQ 11/21/20 22:00 11/29/20 10:03 Magnesium Chloride (Mag Delay) 64 mg DAILY PO 11/22/20 09:00 11/29/20 08:17 Non-Formulary Medication (Menthol (Biofreeze)) 1 swathi QID PRN TP MUSCLE PAIN 11/21/20 21:45 UNV Pantoprazole Sodium (Protonix) 40 mg DAILY PO 11/22/20 09:00 11/29/20 08:17 Oxybutynin Chloride (Ditropan) 5 mg DAILY PO 11/22/20 09:00 11/29/20 08:16 Polyethylene Glycol (miraLAX) 17 gm DAILY PO 11/22/20 09:00 11/28/20 08:26 Potassium Chloride (Klor-Con) 10 meq DAILY PO 11/22/20 09:00 11/29/20 08:16 Propranolol HCl (Inderal) 40 mg DAILY PO 11/22/20 09:00 11/29/20 08:21 Quetiapine Fumarate (SEROquel) 600 mg HS PO 11/21/20 22:15 11/29/20 20:28 Saliva Substitute (Biotene Moisturizing Mouth) 2 spray PRN TID PRN PO DRY MOUTH 11/21/20 22:15 Non-Formulary Medication (Semaglutide (Ozempic)) 1 mg QFR SQ 11/23/20 16:00 UNV Pentoxifylline (TRENtal) 400 mg TIDWMEALS PO 11/22/20 08:00 11/29/20 17:08 Vitamin D (Vitamin D3) 2,000 unit DAILY PO 11/22/20 09:00 11/29/20 08:17 Lactobacillus Rhamnosus (Culturelle) 1 cap BID PO 11/22/20 09:00 11/29/20 20:27 Mirtazapine (Remeron) 7.5 mg QHS PO 11/27/20 21:00 11/29/20 20:27 Divalproex Sodium (Depakote Er) 500 mg QHS PO 11/28/20 21:00 11/29/20 20:27 I have reviewed the current psychotropics carefully including drug interactions. Risk benefit ratio favors no change other than as noted in my dictated progress note. Diagnosis: Problems: (1) Mild cognitive impairment (2) Schizoaffective disorder, bipolar type (3) Anxiety disorder, unspecified (4) Impulse disorder, unspecified (5) Bipolar disorder, curr episode mixed, severe, with psychotic features RAJIV VELAZQUEZ MD Nov 29, 2020 21:04
[2020-11-30] MEDS: LEVOTHYROXINE 112 MCG TABLET PO SCH (05:11)
[2020-11-30 06:15] VITALS: BP 138/82
[2020-11-30] MEDS: MAGNESIUM CHLORIDE ER 64 MG TABLET.ER PO SCH (08:14)
[2020-11-30] MEDS: LORazepam 0.5 MG TABLET PO SCH ×4 (08:15→20:45)
[2020-11-30] MEDS: POTASSIUM CHLORIDE 10 MEQ TABLET.ER. PO SCH (08:15)
[2020-11-30] MEDS: PENTOXIFYLLINE ER 400 MG TABLET.ER. PO SCH ×3 (08:15→17:10)
[2020-11-30] MEDS: OXYBUTYNIN CHLORIDE 5 MG TABLET PO SCH (08:15)
[2020-11-30] MEDS: LACTOBACILLUS RHAMNOSUS GG 1 CAPSULE. PO SCH ×2 (08:15→20:45)
[2020-11-30] MEDS: PANTOPRAZOLE 40 MG TABLET. PO SCH (08:15)
[2020-11-30] MEDS: ASPIRIN ENTERIC COATED 81 MG TABLET.DR. PO SCH (08:15)
[2020-11-30] MEDS: CHOLECALCIFEROL (VITAMIN D3) 1,000 UNIT TABLET PO SCH (08:16)
[2020-11-30] MEDS: FUROSEMIDE 40 MG TABLET PO SCH (08:16)
[2020-11-30] MEDS: POLYETHYLENE GLYCOL 3350 17 GM PACKET. PO SCH (08:16)
[2020-11-30] MEDS: PROPRANOLOL 20 MG TABLET. PO SCH (08:16)
[2020-11-30] MEDS: INSULIN LISPRO 300 UNITS/3 ML VIAL. SQ SCH ×3 (08:20→17:24)
[2020-11-30] MEDS: INSULIN GLARGINE SYRINGE. SQ SCH ×2 (08:21→20:50)
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
[2020-11-30] MEDS: NON FORMULARY ITEM (Semaglutide (Ozempic) 1 MG) SQ SCH (16:00)
[2020-11-30 16:45] VITALS: BP 126/81
[2020-11-30] MEDS: MIRTAZAPINE 7.5 MG TABLET. PO SCH (20:45)
[2020-11-30] MEDS: QUEtiapine 100 MG TABLET. PO SCH (20:45)
[2020-11-30] MEDS: DIVALPROEX ER 500 MG TAB.ER.24H PO SCH (20:45)
--- NOTE | 2020-11-30 21:14 | PDOC ---
Exam Note: Donte Note: Please also refer to the separate dictated note~for this date of service dictated separately.~Patient seen individually. Discussed the patient with Nursing staff reviewed the chart.~Reviewed interim history and current functioning. Reviewed vital signs,~Labs/ Radiology~and current medications noted below. Continue current treatment with the changes noted in the dictated addendum note Assessment: Vital Signs/I&O: Vital Signs Date Time Temp Pulse Resp B/P (MAP) Pulse Ox O2 Delivery O2 Flow Rate FiO2 11/30/20 16:45 97.8 78 20 126/81 (96) 97 Room Air I & O 11/29/20 11/29/20 11/30/20 15:00 23:00 07:00 Intake Total 720 ml 360 ml 240 ml Balance 720 ml 360 ml 240 ml Labs: Laboratory Tests Test 11/30/20 07:22 11/30/20 11:35 11/30/20 17:01 11/30/20 19:42 Glucose (Fingerstick) 133 mg/dL (70-99) H 253 mg/dL (70-99) H 114 mg/dL (70-99) H 182 mg/dL (70-99) H Current Medications: Meds: Laboratory Tests Test 11/30/20 07:22 11/30/20 11:35 11/30/20 17:01 11/30/20 19:42 Glucose (Fingerstick) 133 mg/dL 253 mg/dL 114 mg/dL 182 mg/dL Current Medications Medications (Trade) Dose Ordered Sig/Leonides Route PRN Reason Start Time Stop Time Status Last Admin Dose Admin Multi-Ingredient Ointment (Analgesic [place]) 1 swathi PRN QID PRN TP MUSCLE PAIN 11/21/20 21:00 Al Hydroxide/Mg Hydroxide (Mylanta Plus Xs) 15 ml PRN AFTMEALHC PRN PO DYSPEPSIA 11/21/20 21:00 Magnesium Hydroxide (Milk Of Magnesia) 2,400 mg PRN QHS PRN PO 1ST CHOICE CONSTIPATION 11/21/20 21:00 Acetaminophen (Tylenol) 650 mg PRN Q4HRS PRN PO MILD PAIN / TEMP > 100.3'F 11/21/20 21:45 Amoxicillin/ Clavulanate Potassium (Augmentin 875/ 125mg) 1 tab BID PO 11/22/20 09:00 11/24/20 21:01 DC 11/24/20 20:55 Aspirin (Aspirin Enteric Coated) 81 mg DAILY PO 11/22/20 09:00 11/30/20 08:15 Bisacodyl (Dulcolax Tab) 5 mg PRN DAILY PRN PO 2ND CHOICE CONSTIPATION 11/21/20 21:45 Furosemide (Lasix) 40 mg DAILY PO 11/22/20 09:00 11/30/20 08:16 Acetaminophen/ Hydrocodone Bitart (Lortab 5/325) 1 tab PRN BID PRN PO mod-sev PAIN 11/21/20 21:45 11/28/20 16:52 Ibuprofen (Motrin) 200 mg PRN Q6HRS PRN PO MILD PAIN / TEMP > 100.3'F 11/21/20 21:45 Cancel Albuterol/ Ipratropium (Duoneb) 3 ml PRN BID PRN NEB SHORTNESS OF BREATH 11/21/20 21:45 Levothyroxine Sodium (Synthroid) 112 mcg DAILY06 PO 11/22/20 06:00 11/30/20 05:11 Lorazepam (Ativan) 0.5 mg TID PO 11/21/20 22:00 11/30/20 20:45 Zolpidem Tartrate (Ambien) 5 mg HS PO 11/21/20 22:00 11/27/20 18:02 DC 11/26/20 20:44 Betamethasone Dipropion Augmented (Betamethasone Dp Aug 0.05% Cream) 1 swathi PRN BID PRN TP RASH 11/21/20 22:15 Multi-Ingred Cream/Lotion/Oil/ Oint (Hydrocerin) 1 swathi PRN BID PRN TP Dry Hands 11/21/20 22:00 Guaifenesin (Robitussin Dm) 10 ml PRN Q8HRS PRN PO COUGH 11/21/20 22:00 Insulin Human Lispro (HumaLOG) 20 units TIDWMEALS SQ 11/22/20 08:00 11/30/20 17:24 Insulin Glargine (Lantus Syringe) 30 unit BID SQ 11/21/20 22:00 11/30/20 20:50 Magnesium Chloride (Mag Delay) 64 mg DAILY PO 11/22/20 09:00 11/30/20 08:14 Non-Formulary Medication (Menthol (Biofreeze)) 1 swathi QID PRN TP MUSCLE PAIN 11/21/20 21:45 UNV Pantoprazole Sodium (Protonix) 40 mg DAILY PO 11/22/20 09:00 11/30/20 08:15 Oxybutynin Chloride (Ditropan) 5 mg DAILY PO 11/22/20 09:00 11/30/20 08:15 Polyethylene Glycol (miraLAX) 17 gm DAILY PO 11/22/20 09:00 11/30/20 08:16 Potassium Chloride (Klor-Con) 10 meq DAILY PO 11/22/20 09:00 11/30/20 08:15 Propranolol HCl (Inderal) 40 mg DAILY PO 11/22/20 09:00 11/30/20 08:16 Quetiapine Fumarate (SEROquel) 600 mg HS PO 11/21/20 22:15 11/30/20 20:45 Saliva Substitute (Biotene Moisturizing Mouth) 2 spray PRN TID PRN PO DRY MOUTH 11/21/20 22:15 Non-Formulary Medication (Semaglutide (Ozempic)) 1 mg QFR SQ 11/23/20 16:00 UNV Pentoxifylline (TRENtal) 400 mg TIDWMEALS PO 11/22/20 08:00 11/30/20 17:10 Vitamin D (Vitamin D3) 2,000 unit DAILY PO 11/22/20 09:00 11/30/20 08:16 Lactobacillus Rhamnosus (Culturelle) 1 cap BID PO 11/22/20 09:00 11/30/20 20:45 Mirtazapine (Remeron) 7.5 mg QHS PO 11/27/20 21:00 11/30/20 20:45 Divalproex Sodium (Depakote Er) 500 mg QHS PO 11/28/20 21:00 11/30/20 20:45 I have reviewed the current psychotropics carefully including drug interactions. Risk benefit ratio favors no change other than as noted in my dictated progress note. Diagnosis: Problems: (1) Mild cognitive impairment (2) Schizoaffective disorder, bipolar type (3) Anxiety disorder, unspecified (4) Intellectual disability (5) Impulse disorder, unspecified (6) Bipolar disorder, curr episode mixed, severe, with psychotic features RAJIV VELAZQUEZ MD Nov 30, 2020 21:14
[2020-12-01] MEDS: LEVOTHYROXINE 112 MCG TABLET PO SCH (05:09)
[2020-12-01 06:10] VITALS: BP 143/81
[2020-12-01 07:24] LABS: BASO % 0 % (0-3); EOS # 0.2 x10^3/uL (0.0-0.7); EOS % 3 % (0-3); HEMATOCRIT 40.2 % (36.0-47.0); HEMOGLOBIN 13.4 g/dL (12.0-15.5); LYMPH % 32 % (24-48); MEAN CORPUSCULAR HEMOGLOBIN 29 pg (25-35); MEAN CORPUSCULAR HGB CONC 33 g/dL (31-37); MEAN CORPUSCULAR VOLUME 86 fL (79-100); MONO # 0.7 x10^3/uL (0.0-1.1); MONO % 8 % (0-9); NEUT # 5.2 x10^3uL (1.8-7.7); NEUT % 57 % (31-73); PLATELET COUNT 259 x10^3/uL (140-400); RED BLOOD COUNT 4.68 x10^6/uL (3.50-5.40); RED CELL DISTRIBUTION WIDTH 12.9 % (11.5-14.5); WHITE BLOOD COUNT 9.2 x10^3/uL (4.0-11.0)
--- NOTE | 2020-12-01 07:50 | PDOC ---
Exam Note: Donte Note: This note is a late entry for 11/30/2020 covers elements not covered in my initial note. Subjective: The patient was reviewed on telehealth rounds in the evening of 11/30/2020 with Gabrielle COPELAND. Discussed with nursing staff, reviewed the chart. The patient slept 5-3/4 hours previous night. She has been somewhat flat in her affect, withdrawn, sarcastic, irritable in the morning, did better later in the day. She was holding hands with another patient but did redirect per nursing staff. She took a 2 hour nap in the afternoon. Review of Systems: No CV, , pulmonary, eye, ENT system symptoms on review. Mental Status Exam: The patient is reasonably oriented. Speech is coherent. Abstraction is fair. Computation is impaired. Language function is intact. Attention span is short. Mood and affect withdrawn. Laboratory Data: Reviewed. Impression: Schizoaffective disorder, bipolar type mixed with psychotic features. Anxiety disorder unspecified. Impulse control disorder unspecified. Plan: No change from initial note. Assessment: Vital Signs/I&O: Vital Signs Date Time Temp Pulse Resp B/P (MAP) Pulse Ox O2 Delivery O2 Flow Rate FiO2 12/01/20 06:10 97.1 98 18 143/81 (101) 98 11/30/20 16:45 Room Air I & O 11/30/20 11/30/20 12/01/20 14:59 22:59 06:59 Intake Total 720 ml 480 ml Balance 720 ml 480 ml Labs: Laboratory Tests Test 11/30/20 11:35 11/30/20 17:01 11/30/20 19:42 12/01/20 06:50 Glucose (Fingerstick) 253 mg/dL (70-99) H 114 mg/dL (70-99) H 182 mg/dL (70-99) H White Blood Count 9.2 x10^3/uL (4.0-11.0) Red Blood Count 4.68 x10^6/uL (3.50-5.40) Hemoglobin 13.4 g/dL (12.0-15.5) Hematocrit 40.2 % (36.0-47.0) Mean Corpuscular Volume 86 fL (79-100) Mean Corpuscular Hemoglobin 29 pg (25-35) Mean Corpuscular Hemoglobin Concent 33 g/dL (31-37) Red Cell Distribution Width 12.9 % (11.5-14.5) Platelet Count 259 x10^3/uL (140-400) Neutrophils (%) (Auto) 57 % (31-73) Lymphocytes (%) (Auto) 32 % (24-48) Monocytes (%) (Auto) 8 % (0-9) Eosinophils (%) (Auto) 3 % (0-3) Basophils (%) (Auto) 0 % (0-3) Neutrophils # (Auto) 5.2 x10^3uL (1.8-7.7) Lymphocytes # (Auto) 3.0 x10^3/uL (1.0-4.8) Monocytes # (Auto) 0.7 x10^3/uL (0.0-1.1) Eosinophils # (Auto) 0.2 x10^3/uL (0.0-0.7) Basophils # (Auto) 0.0 x10^3/uL (0.0-0.2) Test 12/01/20 07:14 Glucose (Fingerstick) 141 mg/dL (70-99) H Current Medications: Meds: Laboratory Tests Test 11/30/20 11:35 11/30/20 17:01 11/30/20 19:42 12/01/20 06:50 Glucose (Fingerstick) 253 mg/dL 114 mg/dL 182 mg/dL White Blood Count 9.2 x10^3/uL Red Blood Count 4.68 x10^6/uL Hemoglobin 13.4 g/dL Hematocrit 40.2 % Mean Corpuscular Volume 86 fL Mean Corpuscular Hemoglobin 29 pg Mean Corpuscular Hemoglobin Concent 33 g/dL Red Cell Distribution Width 12.9 % Platelet Count 259 x10^3/uL Neutrophils (%) (Auto) 57 % Lymphocytes (%) (Auto) 32 % Monocytes (%) (Auto) 8 % Eosinophils (%) (Auto) 3 % Basophils (%) (Auto) 0 % Neutrophils # (Auto) 5.2 x10^3uL Lymphocytes # (Auto) 3.0 x10^3/uL Monocytes # (Auto) 0.7 x10^3/uL Eosinophils # (Auto) 0.2 x10^3/uL Basophils # (Auto) 0.0 x10^3/uL Test 12/01/20 07:14 Glucose (Fingerstick) 141 mg/dL Current Medications Medications (Trade) Dose Ordered Sig/Leonides Route PRN Reason Start Time Stop Time Status Last Admin Dose Admin Multi-Ingredient Ointment (Analgesic [place]) 1 swathi PRN QID PRN TP MUSCLE PAIN 11/21/20 21:00 Al Hydroxide/Mg Hydroxide (Mylanta Plus Xs) 15 ml PRN AFTMEALHC PRN PO DYSPEPSIA 11/21/20 21:00 Magnesium Hydroxide (Milk Of Magnesia) 2,400 mg PRN QHS PRN PO 1ST CHOICE CONSTIPATION 11/21/20 21:00 Acetaminophen (Tylenol) 650 mg PRN Q4HRS PRN PO MILD PAIN / TEMP > 100.3'F 11/21/20 21:45 Amoxicillin/ Clavulanate Potassium (Augmentin 875/ 125mg) 1 tab BID PO 11/22/20 09:00 11/24/20 21:01 DC 11/24/20 20:55 Aspirin (Aspirin Enteric Coated) 81 mg DAILY PO 11/22/20 09:00 11/30/20 08:15 Bisacodyl (Dulcolax Tab) 5 mg PRN DAILY PRN PO 2ND CHOICE CONSTIPATION 11/21/20 21:45 Furosemide (Lasix) 40 mg DAILY PO 11/22/20 09:00 11/30/20 08:16 Acetaminophen/ Hydrocodone Bitart (Lortab 5/325) 1 tab PRN BID PRN PO mod-sev PAIN 11/21/20 21:45 11/28/20 16:52 Ibuprofen (Motrin) 200 mg PRN Q6HRS PRN PO MILD PAIN / TEMP > 100.3'F 11/21/20 21:45 Cancel Albuterol/ Ipratropium (Duoneb) 3 ml PRN BID PRN NEB SHORTNESS OF BREATH 11/21/20 21:45 Levothyroxine Sodium (Synthroid) 112 mcg DAILY06 PO 11/22/20 06:00 12/01/20 05:09 Lorazepam (Ativan) 0.5 mg TID PO 11/21/20 22:00 11/30/20 20:45 Zolpidem Tartrate (Ambien) 5 mg HS PO 11/21/20 22:00 11/27/20 18:02 DC 11/26/20 20:44 Betamethasone Dipropion Augmented (Betamethasone Dp Aug 0.05% Cream) 1 swathi PRN BID PRN TP RASH 11/21/20 22:15 Multi-Ingred Cream/Lotion/Oil/ Oint (Hydrocerin) 1 swathi PRN BID PRN TP Dry Hands 11/21/20 22:00 Guaifenesin (Robitussin Dm) 10 ml PRN Q8HRS PRN PO COUGH 11/21/20 22:00 Insulin Human Lispro (HumaLOG) 20 units TIDWMEALS SQ 11/22/20 08:00 11/30/20 17:24 Insulin Glargine (Lantus Syringe) 30 unit BID SQ 11/21/20 22:00 11/30/20 20:50 Magnesium Chloride (Mag Delay) 64 mg DAILY PO 11/22/20 09:00 11/30/20 08:14 Non-Formulary Medication (Menthol (Biofreeze)) 1 swathi QID PRN TP MUSCLE PAIN 11/21/20 21:45 UNV Pantoprazole Sodium (Protonix) 40 mg DAILY PO 11/22/20 09:00 11/30/20 08:15 Oxybutynin Chloride (Ditropan) 5 mg DAILY PO 11/22/20 09:00 11/30/20 08:15 Polyethylene Glycol (miraLAX) 17 gm DAILY PO 11/22/20 09:00 11/30/20 08:16 Potassium Chloride (Klor-Con) 10 meq DAILY PO 11/22/20 09:00 11/30/20 08:15 Propranolol HCl (Inderal) 40 mg DAILY PO 11/22/20 09:00 11/30/20 08:16 Quetiapine Fumarate (SEROquel) 600 mg HS PO 11/21/20 22:15 11/30/20 20:45 Saliva Substitute (Biotene Moisturizing Mouth) 2 spray PRN TID PRN PO DRY MOUTH 11/21/20 22:15 Non-Formulary Medication (Semaglutide (Ozempic)) 1 mg QFR SQ 11/23/20 16:00 UNV Pentoxifylline (TRENtal) 400 mg TIDWMEALS PO 11/22/20 08:00 11/30/20 17:10 Vitamin D (Vitamin D3) 2,000 unit DAILY PO 11/22/20 09:00 11/30/20 08:16 Lactobacillus Rhamnosus (Culturelle) 1 cap BID PO 11/22/20 09:00 11/30/20 20:45 Mirtazapine (Remeron) 7.5 mg QHS PO 11/27/20 21:00 11/30/20 20:45 Divalproex Sodium (Depakote Er) 500 mg QHS PO 11/28/20 21:00 11/30/20 20:45 I have reviewed the current psychotropics carefully including drug interactions. Risk benefit ratio favors no change other than as noted in my dictated progress note. Diagnosis: Problems: (1) Schizoaffective disorder, bipolar type (2) Anxiety disorder, unspecified (3) Impulse disorder, unspecified (4) Bipolar disorder, curr episode mixed, severe, with psychotic features RAJIV VELAZQUEZ MD Dec 01, 2020 07:50
[2020-12-01] MEDS: INSULIN LISPRO 300 UNITS/3 ML VIAL. SQ SCH ×4 (08:00→17:37)
[2020-12-01] MEDS: POLYETHYLENE GLYCOL 3350 17 GM PACKET. PO SCH (09:00)
[2020-12-01] MEDS: INSULIN GLARGINE SYRINGE. SQ SCH ×3 (09:00→19:50)
[2020-12-01 09:17] LABS: ALBUMIN 3.1 g/dL (3.4-5.0); ALBUMIN/GLOBULIN RATIO 0.8 (1.0-1.7); ALK PHOS 141 U/L (46-116); ALT (SGPT) 29 U/L (14-59); ANION GAP 9 (6-14); AST (SGOT) 15 U/L (15-37); BLOOD UREA NITROGEN 12 mg/dL (7-20); BUN/CREATININE RATIO 13 (6-20); CALCIUM 9.4 mg/dL (8.5-10.1); CARBON DIOXIDE 28 mmol/L (21-32); CHLORIDE 105 mmol/L (98-107); CREATININE 0.9 mg/dL (0.6-1.0); GFR 62.8; GLUCOSE 138 mg/dL (70-99); POTASSIUM 3.3 mmol/L (3.5-5.1); SODIUM 142 mmol/L (136-145); TOTAL BILIRUBIN 0.4 mg/dL (0.2-1.0); TOTAL PROTEIN 7.2 g/dL (6.4-8.2)
[2020-12-01 09:30] LABS: VAL ACID 34 mcg/mL (50-100)
[2020-12-01] MEDS: LACTOBACILLUS RHAMNOSUS GG 1 CAPSULE. PO SCH ×2 (09:32→19:47)
[2020-12-01] MEDS: LORazepam 0.5 MG TABLET PO SCH ×3 (09:32→19:50)
[2020-12-01] MEDS: PANTOPRAZOLE 40 MG TABLET. PO SCH (09:32)
[2020-12-01] MEDS: ASPIRIN ENTERIC COATED 81 MG TABLET.DR. PO SCH (09:32)
[2020-12-01] MEDS: POTASSIUM CHLORIDE 10 MEQ TABLET.ER. PO SCH (09:32)
[2020-12-01] MEDS: PENTOXIFYLLINE ER 400 MG TABLET.ER. PO SCH ×3 (09:32→17:34)
[2020-12-01] MEDS: CHOLECALCIFEROL (VITAMIN D3) 1,000 UNIT TABLET PO SCH (09:32)
[2020-12-01] MEDS: PROPRANOLOL 20 MG TABLET. PO SCH (09:32)
[2020-12-01] MEDS: MAGNESIUM CHLORIDE ER 64 MG TABLET.ER PO SCH (09:32)
[2020-12-01] MEDS: OXYBUTYNIN CHLORIDE 5 MG TABLET PO SCH (09:33)
[2020-12-01] MEDS: FUROSEMIDE 40 MG TABLET PO SCH (09:33)
[2020-12-01 16:11] VITALS: BP 135/77
[2020-12-01] MEDS: DIVALPROEX ER 500 MG TAB.ER.24H PO SCH (19:48)
[2020-12-01] MEDS: MIRTAZAPINE 7.5 MG TABLET. PO SCH (19:48)
[2020-12-01] MEDS: QUEtiapine 100 MG TABLET. PO SCH (19:48)
--- NOTE | 2020-12-01 21:00 | PDOC ---
Exam Note: Donte Note: Please also refer to the separate dictated note~for this date of service dictated separately.~Patient seen individually. Discussed the patient with Nursing staff reviewed the chart.~Reviewed interim history and current functioning. Reviewed vital signs,~Labs/ Radiology~and current medications noted below. Continue current treatment with the changes noted in the dictated addendum note Assessment: Vital Signs/I&O: Vital Signs Date Time Temp Pulse Resp B/P (MAP) Pulse Ox O2 Delivery O2 Flow Rate FiO2 12/01/20 16:11 97.4 98 20 135/77 (96) 98 11/30/20 16:45 Room Air I & O 11/30/20 11/30/20 12/01/20 15:00 23:00 07:00 Intake Total 720 ml 480 ml Balance 720 ml 480 ml Labs: Laboratory Tests Test 12/01/20 06:50 12/01/20 07:14 12/01/20 11:51 12/01/20 16:26 White Blood Count 9.2 x10^3/uL (4.0-11.0) Red Blood Count 4.68 x10^6/uL (3.50-5.40) Hemoglobin 13.4 g/dL (12.0-15.5) Hematocrit 40.2 % (36.0-47.0) Mean Corpuscular Volume 86 fL (79-100) Mean Corpuscular Hemoglobin 29 pg (25-35) Mean Corpuscular Hemoglobin Concent 33 g/dL (31-37) Red Cell Distribution Width 12.9 % (11.5-14.5) Platelet Count 259 x10^3/uL (140-400) Neutrophils (%) (Auto) 57 % (31-73) Lymphocytes (%) (Auto) 32 % (24-48) Monocytes (%) (Auto) 8 % (0-9) Eosinophils (%) (Auto) 3 % (0-3) Basophils (%) (Auto) 0 % (0-3) Neutrophils # (Auto) 5.2 x10^3uL (1.8-7.7) Lymphocytes # (Auto) 3.0 x10^3/uL (1.0-4.8) Monocytes # (Auto) 0.7 x10^3/uL (0.0-1.1) Eosinophils # (Auto) 0.2 x10^3/uL (0.0-0.7) Basophils # (Auto) 0.0 x10^3/uL (0.0-0.2) Sodium Level 142 mmol/L (136-145) Potassium Level 3.3 mmol/L (3.5-5.1) L Chloride Level 105 mmol/L (98-107) Carbon Dioxide Level 28 mmol/L (21-32) Anion Gap 9 (6-14) Blood Urea Nitrogen 12 mg/dL (7-20) Creatinine 0.9 mg/dL (0.6-1.0) Estimated GFR (Cockcroft-Gault) 62.8 BUN/Creatinine Ratio 13 (6-20) Glucose Level 138 mg/dL (70-99) H Calcium Level 9.4 mg/dL (8.5-10.1) Total Bilirubin 0.4 mg/dL (0.2-1.0) Aspartate Amino Transferase (AST) 15 U/L (15-37) Alanine Aminotransferase (ALT) 29 U/L (14-59) Alkaline Phosphatase 141 U/L (46-116) H Total Protein 7.2 g/dL (6.4-8.2) Albumin 3.1 g/dL (3.4-5.0) L Albumin/Globulin Ratio 0.8 (1.0-1.7) L Valproic Acid Level 34 mcg/mL (50-100) L Valproic Acid Last Dose Date 11/28/2020 Valproic Acid Last Dose Time 1000 Glucose (Fingerstick) 141 mg/dL (70-99) H 307 mg/dL (70-99) H 185 mg/dL (70-99) H Test 12/01/20 19:16 Glucose (Fingerstick) 234 mg/dL (70-99) H Current Medications: Meds: Laboratory Tests Test 12/01/20 06:50 12/01/20 07:14 12/01/20 11:51 12/01/20 16:26 White Blood Count 9.2 x10^3/uL Red Blood Count 4.68 x10^6/uL Hemoglobin 13.4 g/dL Hematocrit 40.2 % Mean Corpuscular Volume 86 fL Mean Corpuscular Hemoglobin 29 pg Mean Corpuscular Hemoglobin Concent 33 g/dL Red Cell Distribution Width 12.9 % Platelet Count 259 x10^3/uL Neutrophils (%) (Auto) 57 % Lymphocytes (%) (Auto) 32 % Monocytes (%) (Auto) 8 % Eosinophils (%) (Auto) 3 % Basophils (%) (Auto) 0 % Neutrophils # (Auto) 5.2 x10^3uL Lymphocytes # (Auto) 3.0 x10^3/uL Monocytes # (Auto) 0.7 x10^3/uL Eosinophils # (Auto) 0.2 x10^3/uL Basophils # (Auto) 0.0 x10^3/uL Sodium Level 142 mmol/L Potassium Level 3.3 mmol/L Chloride Level 105 mmol/L Carbon Dioxide Level 28 mmol/L Anion Gap 9 Blood Urea Nitrogen 12 mg/dL Creatinine 0.9 mg/dL Estimated GFR (Cockcroft-Gault) 62.8 BUN/Creatinine Ratio 13 Glucose Level 138 mg/dL Calcium Level 9.4 mg/dL Total Bilirubin 0.4 mg/dL Aspartate Amino Transf (AST/SGOT) 15 U/L Alanine Aminotransferase (ALT/SGPT) 29 U/L Alkaline Phosphatase 141 U/L Total Protein 7.2 g/dL Albumin 3.1 g/dL Albumin/Globulin Ratio 0.8 Valproic Acid (Depakene) Level 34 mcg/mL Valproic Acid Last Dose Date 11/28/2020 Valproic Acid Last Dose Time 1000 Glucose (Fingerstick) 141 mg/dL 307 mg/dL 185 mg/dL Test 12/01/20 19:16 Glucose (Fingerstick) 234 mg/dL Current Medications Medications (Trade) Dose Ordered Sig/Leonides Route PRN Reason Start Time Stop Time Status Last Admin Dose Admin Multi-Ingredient Ointment (Analgesic [place]) 1 swathi PRN QID PRN TP MUSCLE PAIN 11/21/20 21:00 Al Hydroxide/Mg Hydroxide (Mylanta Plus Xs) 15 ml PRN AFTMEALHC PRN PO DYSPEPSIA 11/21/20 21:00 Magnesium Hydroxide (Milk Of Magnesia) 2,400 mg PRN QHS PRN PO 1ST CHOICE CONSTIPATION 11/21/20 21:00 Acetaminophen (Tylenol) 650 mg PRN Q4HRS PRN PO MILD PAIN / TEMP > 100.3'F 11/21/20 21:45 Amoxicillin/ Clavulanate Potassium (Augmentin 875/ 125mg) 1 tab BID PO 11/22/20 09:00 11/24/20 21:01 DC 11/24/20 20:55 Aspirin (Aspirin Enteric Coated) 81 mg DAILY PO 11/22/20 09:00 12/01/20 09:32 Bisacodyl (Dulcolax Tab) 5 mg PRN DAILY PRN PO 2ND CHOICE CONSTIPATION 11/21/20 21:45 Furosemide (Lasix) 40 mg DAILY PO 11/22/20 09:00 12/01/20 09:33 Acetaminophen/ Hydrocodone Bitart (Lortab 5/325) 1 tab PRN BID PRN PO mod-sev PAIN 11/21/20 21:45 11/28/20 16:52 Ibuprofen (Motrin) 200 mg PRN Q6HRS PRN PO MILD PAIN / TEMP > 100.3'F 11/21/20 21:45 Cancel Albuterol/ Ipratropium (Duoneb) 3 ml PRN BID PRN NEB SHORTNESS OF BREATH 11/21/20 21:45 Levothyroxine Sodium (Synthroid) 112 mcg DAILY06 PO 11/22/20 06:00 12/01/20 05:09 Lorazepam (Ativan) 0.5 mg TID PO 11/21/20 22:00 12/01/20 19:50 Zolpidem Tartrate (Ambien) 5 mg HS PO 11/21/20 22:00 11/27/20 18:02 DC 11/26/20 20:44 Betamethasone Dipropion Augmented (Betamethasone Dp Aug 0.05% Cream) 1 swathi PRN BID PRN TP RASH 11/21/20 22:15 Multi-Ingred Cream/Lotion/Oil/ Oint (Hydrocerin) 1 swathi PRN BID PRN TP Dry Hands 11/21/20 22:00 Guaifenesin (Robitussin Dm) 10 ml PRN Q8HRS PRN PO COUGH 11/21/20 22:00 Insulin Human Lispro (HumaLOG) 20 units TIDWMEALS SQ 11/22/20 08:00 12/01/20 17:37 Insulin Glargine (Lantus Syringe) 30 unit BID SQ 11/21/20 22:00 12/01/20 19:50 Magnesium Chloride (Mag Delay) 64 mg DAILY PO 11/22/20 09:00 12/01/20 09:32 Non-Formulary Medication (Menthol (Biofreeze)) 1 swathi QID PRN TP MUSCLE PAIN 11/21/20 21:45 UNV Pantoprazole Sodium (Protonix) 40 mg DAILY PO 11/22/20 09:00 12/01/20 09:32 Oxybutynin Chloride (Ditropan) 5 mg DAILY PO 11/22/20 09:00 12/01/20 09:33 Polyethylene Glycol (miraLAX) 17 gm DAILY PO 11/22/20 09:00 11/30/20 08:16 Potassium Chloride (Klor-Con) 10 meq DAILY PO 11/22/20 09:00 12/01/20 09:32 Propranolol HCl (Inderal) 40 mg DAILY PO 11/22/20 09:00 12/01/20 09:32 Quetiapine Fumarate (SEROquel) 600 mg HS PO 11/21/20 22:15 12/01/20 19:48 Saliva Substitute (Biotene Moisturizing Mouth) 2 spray PRN TID PRN PO DRY MOUTH 11/21/20 22:15 Non-Formulary Medication (Semaglutide (Ozempic)) 1 mg QFR SQ 11/23/20 16:00 UNV Pentoxifylline (TRENtal) 400 mg TIDWMEALS PO 11/22/20 08:00 12/01/20 17:34 Vitamin D (Vitamin D3) 2,000 unit DAILY PO 11/22/20 09:00 12/01/20 09:32 Lactobacillus Rhamnosus (Culturelle) 1 cap BID PO 11/22/20 09:00 12/01/20 19:47 Mirtazapine (Remeron) 7.5 mg QHS PO 11/27/20 21:00 12/01/20 19:48 Divalproex Sodium (Depakote Er) 500 mg QHS PO 11/28/20 21:00 12/01/20 17:12 DC 11/30/20 20:45 Divalproex Sodium (Depakote Er) 1,000 mg QHS PO 12/01/20 21:00 12/01/20 19:48 Current Medications Medications (Trade) Dose Ordered Sig/Leonides Route PRN Reason Start Time Stop Time Status Last Admin Dose Admin Divalproex Sodium (Depakote Er) 1,000 mg QHS PO 12/01/20 21:00 12/01/20 19:48 I have reviewed the current psychotropics carefully including drug interactions. Risk benefit ratio favors no change other than as noted in my dictated progress note. Diagnosis: Problems: (1) Mild cognitive impairment (2) Schizoaffective disorder, bipolar type (3) Anxiety disorder, unspecified (4) Impulse disorder, unspecified (5) Bipolar disorder, curr episode mixed, severe, with psychotic features RAJIV VELAZQUEZ MD Dec 01, 2020 21:00
[2020-12-02] MEDS: LEVOTHYROXINE 112 MCG TABLET PO SCH (05:05)
[2020-12-02 06:48] VITALS: BP 142/85
--- NOTE | 2020-12-02 08:14 | PDOC ---
Exam Note: Donte Note: This note is a late entry for 12/01/2020 covers elements not covered in my initial note. Subjective: The patient was reviewed on telehealth rounds in the evening of 12/01/2020 with Nacho COPELAND. Discussed with nursing staff, reviewed the chart. The patient slept 7-1/4 hours previous night. She refused a.m. medications and insulin she took it later. She was somewhat abrasive in the morning, resistive to cares. Review of Systems: No CV, , pulmonary, eye, ENT system symptoms on review. Mental Status Exam: The patient is oriented to herself and situation. Speech has some latency, coherent. Abstraction is fair. Computation is impaired. Language function is intact. Mood and affect withdrawn, anxious, less so than before. Laboratory Data: Reviewed. Impression: Schizoaffective disorder, bipolar type mixed with psychotic features. Anxiety disorder unspecified. Impulse control disorder unspecified. Plan: Valproic acid level is 34 subtherapeutic on Depakote ER 500 mg p.o. h.s. We will increase this to 1000 mg p.o. h.s. Check CBC, CMP, valproic acid level in 3 days. Rest unchanged for now. Assessment: Vital Signs/I&O: Vital Signs Date Time Temp Pulse Resp B/P (MAP) Pulse Ox O2 Delivery O2 Flow Rate FiO2 12/02/20 06:48 97.4 100 18 142/85 (104) 97 11/30/20 16:45 Room Air I & O 12/01/20 12/01/20 12/02/20 15:00 23:00 07:00 Intake Total 720 ml 600 ml Balance 720 ml 600 ml Labs: Laboratory Tests Test 12/01/20 11:51 12/01/20 16:26 12/01/20 19:16 12/02/20 07:50 Glucose (Fingerstick) 307 mg/dL (70-99) H 185 mg/dL (70-99) H 234 mg/dL (70-99) H 197 mg/dL (70-99) H Current Medications: Meds: Laboratory Tests Test 12/01/20 11:51 12/01/20 16:26 12/01/20 19:16 12/02/20 07:50 Glucose (Fingerstick) 307 mg/dL 185 mg/dL 234 mg/dL 197 mg/dL Current Medications Medications (Trade) Dose Ordered Sig/Leonides Route PRN Reason Start Time Stop Time Status Last Admin Dose Admin Multi-Ingredient Ointment (Analgesic [place]) 1 swathi PRN QID PRN TP MUSCLE PAIN 11/21/20 21:00 Al Hydroxide/Mg Hydroxide (Mylanta Plus Xs) 15 ml PRN AFTMEALHC PRN PO DYSPEPSIA 11/21/20 21:00 Magnesium Hydroxide (Milk Of Magnesia) 2,400 mg PRN QHS PRN PO 1ST CHOICE CONSTIPATION 11/21/20 21:00 Acetaminophen (Tylenol) 650 mg PRN Q4HRS PRN PO MILD PAIN / TEMP > 100.3'F 11/21/20 21:45 Amoxicillin/ Clavulanate Potassium (Augmentin 875/ 125mg) 1 tab BID PO 11/22/20 09:00 11/24/20 21:01 DC 11/24/20 20:55 Aspirin (Aspirin Enteric Coated) 81 mg DAILY PO 11/22/20 09:00 12/01/20 09:32 Bisacodyl (Dulcolax Tab) 5 mg PRN DAILY PRN PO 2ND CHOICE CONSTIPATION 11/21/20 21:45 Furosemide (Lasix) 40 mg DAILY PO 11/22/20 09:00 12/01/20 09:33 Acetaminophen/ Hydrocodone Bitart (Lortab 5/325) 1 tab PRN BID PRN PO mod-sev PAIN 11/21/20 21:45 11/28/20 16:52 Ibuprofen (Motrin) 200 mg PRN Q6HRS PRN PO MILD PAIN / TEMP > 100.3'F 11/21/20 21:45 Cancel Albuterol/ Ipratropium (Duoneb) 3 ml PRN BID PRN NEB SHORTNESS OF BREATH 11/21/20 21:45 Levothyroxine Sodium (Synthroid) 112 mcg DAILY06 PO 11/22/20 06:00 12/02/20 05:05 Lorazepam (Ativan) 0.5 mg TID PO 11/21/20 22:00 12/01/20 19:50 Zolpidem Tartrate (Ambien) 5 mg HS PO 11/21/20 22:00 11/27/20 18:02 DC 11/26/20 20:44 Betamethasone Dipropion Augmented (Betamethasone Dp Aug 0.05% Cream) 1 swathi PRN BID PRN TP RASH 11/21/20 22:15 Multi-Ingred Cream/Lotion/Oil/ Oint (Hydrocerin) 1 swathi PRN BID PRN TP Dry Hands 11/21/20 22:00 Guaifenesin (Robitussin Dm) 10 ml PRN Q8HRS PRN PO COUGH 11/21/20 22:00 Insulin Human Lispro (HumaLOG) 20 units TIDWMEALS SQ 11/22/20 08:00 12/01/20 17:37 Insulin Glargine (Lantus Syringe) 30 unit BID SQ 11/21/20 22:00 12/01/20 19:50 Magnesium Chloride (Mag Delay) 64 mg DAILY PO 11/22/20 09:00 12/01/20 09:32 Non-Formulary Medication (Menthol (Biofreeze)) 1 swathi QID PRN TP MUSCLE PAIN 11/21/20 21:45 UNV Pantoprazole Sodium (Protonix) 40 mg DAILY PO 11/22/20 09:00 12/01/20 09:32 Oxybutynin Chloride (Ditropan) 5 mg DAILY PO 11/22/20 09:00 12/01/20 09:33 Polyethylene Glycol (miraLAX) 17 gm DAILY PO 11/22/20 09:00 11/30/20 08:16 Potassium Chloride (Klor-Con) 10 meq DAILY PO 11/22/20 09:00 12/01/20 09:32 Propranolol HCl (Inderal) 40 mg DAILY PO 11/22/20 09:00 12/01/20 09:32 Quetiapine Fumarate (SEROquel) 600 mg HS PO 11/21/20 22:15 12/01/20 19:48 Saliva Substitute (Biotene Moisturizing Mouth) 2 spray PRN TID PRN PO DRY MOUTH 11/21/20 22:15 Non-Formulary Medication (Semaglutide (Ozempic)) 1 mg QFR SQ 11/23/20 16:00 UNV Pentoxifylline (TRENtal) 400 mg TIDWMEALS PO 11/22/20 08:00 12/01/20 17:34 Vitamin D (Vitamin D3) 2,000 unit DAILY PO 11/22/20 09:00 12/01/20 09:32 Lactobacillus Rhamnosus (Culturelle) 1 cap BID PO 11/22/20 09:00 12/01/20 19:47 Mirtazapine (Remeron) 7.5 mg QHS PO 11/27/20 21:00 12/01/20 19:48 Divalproex Sodium (Depakote Er) 500 mg QHS PO 11/28/20 21:00 12/01/20 17:12 DC 11/30/20 20:45 Divalproex Sodium (Depakote Er) 1,000 mg QHS PO 12/01/20 21:00 12/01/20 19:48 Current Medications Medications (Trade) Dose Ordered Sig/Leonides Route PRN Reason Start Time Stop Time Status Last Admin Dose Admin Divalproex Sodium (Depakote Er) 1,000 mg QHS PO 12/01/20 21:00 12/01/20 19:48 I have reviewed the current psychotropics carefully including drug interactions. Risk benefit ratio favors no change other than as noted in my dictated progress note. Diagnosis: Problems: (1) Mild cognitive impairment (2) Schizoaffective disorder, bipolar type (3) Anxiety disorder, unspecified (4) Impulse disorder, unspecified (5) Bipolar disorder, curr episode mixed, severe, with psychotic features RAJIV VELAZQUEZ MD Dec 02, 2020 08:14
[2020-12-02] MEDS: PROPRANOLOL 20 MG TABLET. PO SCH (09:18)
[2020-12-02] MEDS: MAGNESIUM CHLORIDE ER 64 MG TABLET.ER PO SCH (09:19)
[2020-12-02] MEDS: OXYBUTYNIN CHLORIDE 5 MG TABLET PO SCH (09:19)
[2020-12-02] MEDS: CHOLECALCIFEROL (VITAMIN D3) 1,000 UNIT TABLET PO SCH (09:19)
[2020-12-02] MEDS: PANTOPRAZOLE 40 MG TABLET. PO SCH (09:19)
[2020-12-02] MEDS: LACTOBACILLUS RHAMNOSUS GG 1 CAPSULE. PO SCH ×2 (09:19→20:08)
[2020-12-02] MEDS: FUROSEMIDE 40 MG TABLET PO SCH (09:20)
[2020-12-02] MEDS: POTASSIUM CHLORIDE 10 MEQ TABLET.ER. PO SCH (09:20)
[2020-12-02] MEDS: PENTOXIFYLLINE ER 400 MG TABLET.ER. PO SCH ×3 (09:20→17:18)
[2020-12-02] MEDS: LORazepam 0.5 MG TABLET PO SCH ×3 (09:20→20:10)
[2020-12-02] MEDS: ASPIRIN ENTERIC COATED 81 MG TABLET.DR. PO SCH (09:20)
[2020-12-02] MEDS: POLYETHYLENE GLYCOL 3350 17 GM PACKET. PO SCH (09:22)
[2020-12-02] MEDS: INSULIN GLARGINE SYRINGE. SQ SCH ×2 (09:22→20:11)
[2020-12-02] MEDS: INSULIN LISPRO 300 UNITS/3 ML VIAL. SQ SCH ×3 (09:22→17:00)
[2020-12-02 15:50] VITALS: BP 131/79
[2020-12-02] MEDS: QUEtiapine 100 MG TABLET. PO SCH (20:08)
[2020-12-02] MEDS: MIRTAZAPINE 7.5 MG TABLET. PO SCH (20:08)
[2020-12-02] MEDS: DIVALPROEX ER 500 MG TAB.ER.24H PO SCH (20:10)
--- NOTE | 2020-12-02 20:54 | PDOC ---
Exam Note: Donte Note: Please also refer to the separate dictated note~for this date of service dictated separately.~Patient seen individually. Discussed the patient with Nursing staff reviewed the chart.~Reviewed interim history and current functioning. Reviewed vital signs,~Labs/ Radiology~and current medications noted below. Continue current treatment with the changes noted in the dictated addendum note Assessment: Vital Signs/I&O: Vital Signs Date Time Temp Pulse Resp B/P (MAP) Pulse Ox O2 Delivery O2 Flow Rate FiO2 12/02/20 15:50 97.2 79 16 131/79 (96) 98 11/30/20 16:45 Room Air I & O 12/01/20 12/01/20 12/02/20 15:00 23:00 07:00 Intake Total 720 ml 600 ml Balance 720 ml 600 ml Labs: Laboratory Tests Test 12/02/20 07:50 12/02/20 12:10 12/02/20 16:54 12/02/20 19:43 Glucose (Fingerstick) 197 mg/dL (70-99) H 139 mg/dL (70-99) H 126 mg/dL (70-99) H 278 mg/dL (70-99) H Current Medications: Meds: Laboratory Tests Test 12/02/20 07:50 12/02/20 12:10 12/02/20 16:54 12/02/20 19:43 Glucose (Fingerstick) 197 mg/dL 139 mg/dL 126 mg/dL 278 mg/dL Current Medications Medications (Trade) Dose Ordered Sig/Leonides Route PRN Reason Start Time Stop Time Status Last Admin Dose Admin Multi-Ingredient Ointment (Analgesic [place]) 1 swathi PRN QID PRN TP MUSCLE PAIN 11/21/20 21:00 Al Hydroxide/Mg Hydroxide (Mylanta Plus Xs) 15 ml PRN AFTMEALHC PRN PO DYSPEPSIA 11/21/20 21:00 Magnesium Hydroxide (Milk Of Magnesia) 2,400 mg PRN QHS PRN PO 1ST CHOICE CONSTIPATION 11/21/20 21:00 Acetaminophen (Tylenol) 650 mg PRN Q4HRS PRN PO MILD PAIN / TEMP > 100.3'F 11/21/20 21:45 Amoxicillin/ Clavulanate Potassium (Augmentin 875/ 125mg) 1 tab BID PO 11/22/20 09:00 11/24/20 21:01 DC 11/24/20 20:55 Aspirin (Aspirin Enteric Coated) 81 mg DAILY PO 11/22/20 09:00 12/02/20 09:20 Bisacodyl (Dulcolax Tab) 5 mg PRN DAILY PRN PO 2ND CHOICE CONSTIPATION 11/21/20 21:45 Furosemide (Lasix) 40 mg DAILY PO 11/22/20 09:00 12/02/20 09:20 Acetaminophen/ Hydrocodone Bitart (Lortab 5/325) 1 tab PRN BID PRN PO mod-sev PAIN 11/21/20 21:45 11/28/20 16:52 Ibuprofen (Motrin) 200 mg PRN Q6HRS PRN PO MILD PAIN / TEMP > 100.3'F 11/21/20 21:45 Cancel Albuterol/ Ipratropium (Duoneb) 3 ml PRN BID PRN NEB SHORTNESS OF BREATH 11/21/20 21:45 Levothyroxine Sodium (Synthroid) 112 mcg DAILY06 PO 11/22/20 06:00 12/02/20 05:05 Lorazepam (Ativan) 0.5 mg TID PO 11/21/20 22:00 12/02/20 20:10 Zolpidem Tartrate (Ambien) 5 mg HS PO 11/21/20 22:00 11/27/20 18:02 DC 11/26/20 20:44 Betamethasone Dipropion Augmented (Betamethasone Dp Aug 0.05% Cream) 1 swathi PRN BID PRN TP RASH 11/21/20 22:15 Multi-Ingred Cream/Lotion/Oil/ Oint (Hydrocerin) 1 swathi PRN BID PRN TP Dry Hands 11/21/20 22:00 Guaifenesin (Robitussin Dm) 10 ml PRN Q8HRS PRN PO COUGH 11/21/20 22:00 Insulin Human Lispro (HumaLOG) 20 units TIDWMEALS SQ 11/22/20 08:00 12/02/20 12:14 Insulin Glargine (Lantus Syringe) 30 unit BID SQ 11/21/20 22:00 12/02/20 20:11 Magnesium Chloride (Mag Delay) 64 mg DAILY PO 11/22/20 09:00 12/02/20 09:19 Non-Formulary Medication (Menthol (Biofreeze)) 1 swathi QID PRN TP MUSCLE PAIN 11/21/20 21:45 UNV Pantoprazole Sodium (Protonix) 40 mg DAILY PO 11/22/20 09:00 12/02/20 09:19 Oxybutynin Chloride (Ditropan) 5 mg DAILY PO 11/22/20 09:00 12/02/20 09:19 Polyethylene Glycol (miraLAX) 17 gm DAILY PO 11/22/20 09:00 12/02/20 09:22 Potassium Chloride (Klor-Con) 10 meq DAILY PO 11/22/20 09:00 12/02/20 09:20 Propranolol HCl (Inderal) 40 mg DAILY PO 11/22/20 09:00 12/02/20 09:18 Quetiapine Fumarate (SEROquel) 600 mg HS PO 11/21/20 22:15 12/02/20 20:08 Saliva Substitute (Biotene Moisturizing Mouth) 2 spray PRN TID PRN PO DRY MOUTH 11/21/20 22:15 Non-Formulary Medication (Semaglutide (Ozempic)) 1 mg QFR SQ 11/23/20 16:00 UNV Pentoxifylline (TRENtal) 400 mg TIDWMEALS PO 11/22/20 08:00 12/02/20 17:18 Vitamin D (Vitamin D3) 2,000 unit DAILY PO 11/22/20 09:00 12/02/20 09:19 Lactobacillus Rhamnosus (Culturelle) 1 cap BID PO 11/22/20 09:00 12/02/20 20:08 Mirtazapine (Remeron) 7.5 mg QHS PO 11/27/20 21:00 12/02/20 20:08 Divalproex Sodium (Depakote Er) 500 mg QHS PO 11/28/20 21:00 12/01/20 17:12 DC 11/30/20 20:45 Divalproex Sodium (Depakote Er) 1,000 mg QHS PO 12/01/20 21:00 12/02/20 20:10 Bupropion HCl (Wellbutrin Xl) 150 mg DAILY PO 12/03/20 09:00 Current Medications Medications (Trade) Dose Ordered Sig/Leonides Route PRN Reason Start Time Stop Time Status Last Admin Dose Admin Divalproex Sodium (Depakote Er) 1,000 mg QHS PO 12/01/20 21:00 12/02/20 20:10 I have reviewed the current psychotropics carefully including drug interactions. Risk benefit ratio favors no change other than as noted in my dictated progress note. Diagnosis: Problems: (1) Mild cognitive impairment (2) Schizoaffective disorder, bipolar type (3) Anxiety disorder, unspecified (4) Impulse disorder, unspecified (5) Bipolar disorder, curr episode mixed, severe, with psychotic features RAJIV VELAZQUEZ MD Dec 02, 2020 20:54
[2020-12-03] MEDS: LEVOTHYROXINE 112 MCG TABLET PO SCH (05:10)
[2020-12-03 06:20] VITALS: BP 133/87
--- NOTE | 2020-12-03 08:39 | PDOC ---
Exam Note: Donte Note: This note is a late entry for 12/02/2020 covers elements not covered in my initial note. Subjective: The patient was reviewed on telehealth rounds in the evening of 12/02/2020 with Nacho COPELAND. Discussed with nursing staff, reviewed the chart. The patient slept 6 hours previous night. Overall she has been somewhat anxious, restless, withdrawn at times but in the middle of a group at 10 a.m. she suddenly got up, undressed herself, pulled her pants down exposing herself and flipped a meal tray off onto the floor. This was totally unprovoked, seemed to be responsive to some internal stimuli, anxious, restless. Review of Systems: No CV, , pulmonary, eye, ENT system symptoms on review. Mental Status Exam: The patient is oriented reasonably. Speech is low in rate and rhythm, low in volume. Often response is monosyllabic. Abstraction is fair. Computation is impaired. Language function is intact. As I questioned her about the above incident during the telehealth rounds, she became extremely loud, disruptive, paranoid, yelling, screaming. We had to terminate the session. No active suicidal or homicidal ideation. Laboratory Data: Reviewed. Impression: Schizoaffective disorder, bipolar type mixed with psychotic features. Anxiety disorder unspecified. Impulse control disorder unspecified. Plan: Continue psychotropics from initial note. Start Wellbutrin XL 150 mg a.m. Depakote has been increased. Repeat labs level to reach therapeutic level. We may need to change the Seroquel to Risperdal on account of her ongoing psychotic symptoms but we will see how she does with stabilization on the Depakote and then make further decisions. Assessment: Vital Signs/I&O: Vital Signs Date Time Temp Pulse Resp B/P (MAP) Pulse Ox O2 Delivery O2 Flow Rate FiO2 12/03/20 06:20 97.1 93 20 133/87 (102) 97 Room Air I & O 12/02/20 12/02/20 12/03/20 14:59 22:59 06:59 Intake Total 760 ml 260 ml 240 ml Balance 760 ml 260 ml 240 ml Labs: Laboratory Tests Test 12/02/20 12:10 12/02/20 16:54 12/02/20 19:43 12/03/20 07:31 Glucose (Fingerstick) 139 mg/dL (70-99) H 126 mg/dL (70-99) H 278 mg/dL (70-99) H 153 mg/dL (70-99) H Current Medications: Meds: Laboratory Tests Test 12/02/20 12:10 12/02/20 16:54 12/02/20 19:43 12/03/20 07:31 Glucose (Fingerstick) 139 mg/dL 126 mg/dL 278 mg/dL 153 mg/dL Current Medications Medications (Trade) Dose Ordered Sig/Leonides Route PRN Reason Start Time Stop Time Status Last Admin Dose Admin Multi-Ingredient Ointment (Analgesic [place]) 1 swathi PRN QID PRN TP MUSCLE PAIN 11/21/20 21:00 Al Hydroxide/Mg Hydroxide (Mylanta Plus Xs) 15 ml PRN AFTMEALHC PRN PO DYSPEPSIA 11/21/20 21:00 Magnesium Hydroxide (Milk Of Magnesia) 2,400 mg PRN QHS PRN PO 1ST CHOICE CONSTIPATION 11/21/20 21:00 Acetaminophen (Tylenol) 650 mg PRN Q4HRS PRN PO MILD PAIN / TEMP > 100.3'F 11/21/20 21:45 Amoxicillin/ Clavulanate Potassium (Augmentin 875/ 125mg) 1 tab BID PO 11/22/20 09:00 11/24/20 21:01 DC 11/24/20 20:55 Aspirin (Aspirin Enteric Coated) 81 mg DAILY PO 11/22/20 09:00 12/02/20 09:20 Bisacodyl (Dulcolax Tab) 5 mg PRN DAILY PRN PO 2ND CHOICE CONSTIPATION 11/21/20 21:45 Furosemide (Lasix) 40 mg DAILY PO 11/22/20 09:00 12/02/20 09:20 Acetaminophen/ Hydrocodone Bitart (Lortab 5/325) 1 tab PRN BID PRN PO mod-sev PAIN 11/21/20 21:45 11/28/20 16:52 Ibuprofen (Motrin) 200 mg PRN Q6HRS PRN PO MILD PAIN / TEMP > 100.3'F 11/21/20 21:45 Cancel Albuterol/ Ipratropium (Duoneb) 3 ml PRN BID PRN NEB SHORTNESS OF BREATH 11/21/20 21:45 Levothyroxine Sodium (Synthroid) 112 mcg DAILY06 PO 11/22/20 06:00 12/03/20 05:10 Lorazepam (Ativan) 0.5 mg TID PO 11/21/20 22:00 12/02/20 20:10 Zolpidem Tartrate (Ambien) 5 mg HS PO 11/21/20 22:00 11/27/20 18:02 DC 11/26/20 20:44 Betamethasone Dipropion Augmented (Betamethasone Dp Aug 0.05% Cream) 1 swathi PRN BID PRN TP RASH 11/21/20 22:15 Multi-Ingred Cream/Lotion/Oil/ Oint (Hydrocerin) 1 swathi PRN BID PRN TP Dry Hands 11/21/20 22:00 Guaifenesin (Robitussin Dm) 10 ml PRN Q8HRS PRN PO COUGH 11/21/20 22:00 Insulin Human Lispro (HumaLOG) 20 units TIDWMEALS SQ 11/22/20 08:00 12/02/20 12:14 Insulin Glargine (Lantus Syringe) 30 unit BID SQ 11/21/20 22:00 12/02/20 20:11 Magnesium Chloride (Mag Delay) 64 mg DAILY PO 11/22/20 09:00 12/02/20 09:19 Non-Formulary Medication (Menthol (Biofreeze)) 1 swathi QID PRN TP MUSCLE PAIN 11/21/20 21:45 UNV Pantoprazole Sodium (Protonix) 40 mg DAILY PO 11/22/20 09:00 12/02/20 09:19 Oxybutynin Chloride (Ditropan) 5 mg DAILY PO 11/22/20 09:00 12/02/20 09:19 Polyethylene Glycol (miraLAX) 17 gm DAILY PO 11/22/20 09:00 12/02/20 09:22 Potassium Chloride (Klor-Con) 10 meq DAILY PO 11/22/20 09:00 12/02/20 09:20 Propranolol HCl (Inderal) 40 mg DAILY PO 11/22/20 09:00 12/02/20 09:18 Quetiapine Fumarate (SEROquel) 600 mg HS PO 11/21/20 22:15 12/02/20 20:08 Saliva Substitute (Biotene Moisturizing Mouth) 2 spray PRN TID PRN PO DRY MOUTH 11/21/20 22:15 Non-Formulary Medication (Semaglutide (Ozempic)) 1 mg QFR SQ 11/23/20 16:00 UNV Pentoxifylline (TRENtal) 400 mg TIDWMEALS PO 11/22/20 08:00 12/02/20 17:18 Vitamin D (Vitamin D3) 2,000 unit DAILY PO 11/22/20 09:00 12/02/20 09:19 Lactobacillus Rhamnosus (Culturelle) 1 cap BID PO 11/22/20 09:00 12/02/20 20:08 Mirtazapine (Remeron) 7.5 mg QHS PO 11/27/20 21:00 12/02/20 20:08 Divalproex Sodium (Depakote Er) 500 mg QHS PO 11/28/20 21:00 12/01/20 17:12 DC 11/30/20 20:45 Divalproex Sodium (Depakote Er) 1,000 mg QHS PO 12/01/20 21:00 12/02/20 20:10 Bupropion HCl (Wellbutrin Xl) 150 mg DAILY PO 12/03/20 09:00 I have reviewed the current psychotropics carefully including drug interactions. Risk benefit ratio favors no change other than as noted in my dictated progress note. Diagnosis: Problems: (1) Mild cognitive impairment (2) Schizoaffective disorder, bipolar type (3) Anxiety disorder, unspecified (4) Intellectual disability (5) Impulse disorder, unspecified (6) Bipolar disorder, curr episode mixed, severe, with psychotic features RAJIV VELAZQUEZ MD Dec 03, 2020 08:39
[2020-12-03] MEDS: INSULIN GLARGINE SYRINGE. SQ SCH ×3 (09:00→21:10)
[2020-12-03] MEDS: buPROPion XL 150 MG TAB.ER.24H PO SCH (09:55)
[2020-12-03] MEDS: LACTOBACILLUS RHAMNOSUS GG 1 CAPSULE. PO SCH ×2 (09:56→19:57)
[2020-12-03] MEDS: PENTOXIFYLLINE ER 400 MG TABLET.ER. PO SCH ×4 (09:56→17:33)
[2020-12-03] MEDS: ASPIRIN ENTERIC COATED 81 MG TABLET.DR. PO SCH (09:56)
[2020-12-03] MEDS: LORazepam 0.5 MG TABLET PO SCH ×2 (09:56→13:59)
[2020-12-03] MEDS: OXYBUTYNIN CHLORIDE 5 MG TABLET PO SCH (09:56)
[2020-12-03] MEDS: FUROSEMIDE 40 MG TABLET PO SCH (09:56)
[2020-12-03] MEDS: CHOLECALCIFEROL (VITAMIN D3) 1,000 UNIT TABLET PO SCH (09:56)
[2020-12-03] MEDS: PANTOPRAZOLE 40 MG TABLET. PO SCH (09:56)
[2020-12-03] MEDS: POTASSIUM CHLORIDE 10 MEQ TABLET.ER. PO SCH (09:57)
[2020-12-03] MEDS: MAGNESIUM CHLORIDE ER 64 MG TABLET.ER PO SCH (09:57)
[2020-12-03] MEDS: POLYETHYLENE GLYCOL 3350 17 GM PACKET. PO SCH (09:57)
[2020-12-03] MEDS: INSULIN LISPRO 300 UNITS/3 ML VIAL. SQ SCH ×3 (09:59→17:34)
[2020-12-03] MEDS: PROPRANOLOL 20 MG TABLET. PO SCH (10:02)
[2020-12-03 16:36] VITALS: BP 128/85
[2020-12-03] MEDS: DIVALPROEX ER 500 MG TAB.ER.24H PO SCH (19:57)
[2020-12-03] MEDS: MIRTAZAPINE 7.5 MG TABLET. PO SCH (19:57)
[2020-12-03] MEDS: QUEtiapine 100 MG TABLET. PO SCH (19:57)
[2020-12-03] MEDS: clonazePAM 0.5 MG TABLET PO SCH (19:58)
--- NOTE | 2020-12-03 21:00 | PDOC ---
Exam Note: Donte Note: Please also refer to the separate dictated note~for this date of service dictated separately.~Patient seen individually. Discussed the patient with Nursing staff reviewed the chart.~Reviewed interim history and current functioning. Reviewed vital signs,~Labs/ Radiology~and current medications noted below. Continue current treatment with the changes noted in the dictated addendum note Assessment: Vital Signs/I&O: Vital Signs Date Time Temp Pulse Resp B/P (MAP) Pulse Ox O2 Delivery O2 Flow Rate FiO2 12/03/20 16:36 98.0 73 20 128/85 (99) 98 12/03/20 06:20 Room Air I & O 12/02/20 12/02/20 12/03/20 15:00 23:00 07:00 Intake Total 760 ml 260 ml 240 ml Balance 760 ml 260 ml 240 ml Labs: Laboratory Tests Test 12/03/20 07:31 12/03/20 12:02 12/03/20 17:29 12/03/20 19:05 Glucose (Fingerstick) 153 mg/dL (70-99) H 163 mg/dL (70-99) H 212 mg/dL (70-99) H 222 mg/dL (70-99) H Current Medications: Meds: Laboratory Tests Test 12/03/20 07:31 12/03/20 12:02 12/03/20 17:29 12/03/20 19:05 Glucose (Fingerstick) 153 mg/dL 163 mg/dL 212 mg/dL 222 mg/dL Current Medications Medications (Trade) Dose Ordered Sig/Leonides Route PRN Reason Start Time Stop Time Status Last Admin Dose Admin Multi-Ingredient Ointment (Analgesic [place]) 1 swathi PRN QID PRN TP MUSCLE PAIN 11/21/20 21:00 Al Hydroxide/Mg Hydroxide (Mylanta Plus Xs) 15 ml PRN AFTMEALHC PRN PO DYSPEPSIA 11/21/20 21:00 Magnesium Hydroxide (Milk Of Magnesia) 2,400 mg PRN QHS PRN PO 1ST CHOICE CONSTIPATION 11/21/20 21:00 Acetaminophen (Tylenol) 650 mg PRN Q4HRS PRN PO MILD PAIN / TEMP > 100.3'F 11/21/20 21:45 Amoxicillin/ Clavulanate Potassium (Augmentin 875/ 125mg) 1 tab BID PO 11/22/20 09:00 11/24/20 21:01 DC 11/24/20 20:55 Aspirin (Aspirin Enteric Coated) 81 mg DAILY PO 11/22/20 09:00 12/03/20 09:56 Bisacodyl (Dulcolax Tab) 5 mg PRN DAILY PRN PO 2ND CHOICE CONSTIPATION 11/21/20 21:45 Furosemide (Lasix) 40 mg DAILY PO 11/22/20 09:00 12/03/20 09:56 Acetaminophen/ Hydrocodone Bitart (Lortab 5/325) 1 tab PRN BID PRN PO mod-sev PAIN 11/21/20 21:45 11/28/20 16:52 Ibuprofen (Motrin) 200 mg PRN Q6HRS PRN PO MILD PAIN / TEMP > 100.3'F 11/21/20 21:45 Cancel Albuterol/ Ipratropium (Duoneb) 3 ml PRN BID PRN NEB SHORTNESS OF BREATH 11/21/20 21:45 Levothyroxine Sodium (Synthroid) 112 mcg DAILY06 PO 11/22/20 06:00 12/03/20 05:10 Lorazepam (Ativan) 0.5 mg TID PO 11/21/20 22:00 12/03/20 18:47 DC 12/03/20 13:59 Zolpidem Tartrate (Ambien) 5 mg HS PO 11/21/20 22:00 11/27/20 18:02 DC 11/26/20 20:44 Betamethasone Dipropion Augmented (Betamethasone Dp Aug 0.05% Cream) 1 swathi PRN BID PRN TP RASH 11/21/20 22:15 Multi-Ingred Cream/Lotion/Oil/ Oint (Hydrocerin) 1 swathi PRN BID PRN TP Dry Hands 11/21/20 22:00 Guaifenesin (Robitussin Dm) 10 ml PRN Q8HRS PRN PO COUGH 11/21/20 22:00 Insulin Human Lispro (HumaLOG) 20 units TIDWMEALS SQ 11/22/20 08:00 12/03/20 17:34 Insulin Glargine (Lantus Syringe) 30 unit BID SQ 11/21/20 22:00 12/02/20 20:11 Magnesium Chloride (Mag Delay) 64 mg DAILY PO 11/22/20 09:00 12/03/20 09:57 Non-Formulary Medication (Menthol (Biofreeze)) 1 swathi QID PRN TP MUSCLE PAIN 11/21/20 21:45 UNV Pantoprazole Sodium (Protonix) 40 mg DAILY PO 11/22/20 09:00 12/03/20 09:56 Oxybutynin Chloride (Ditropan) 5 mg DAILY PO 11/22/20 09:00 12/03/20 09:56 Polyethylene Glycol (miraLAX) 17 gm DAILY PO 11/22/20 09:00 12/03/20 09:57 Potassium Chloride (Klor-Con) 10 meq DAILY PO 11/22/20 09:00 12/03/20 09:57 Propranolol HCl (Inderal) 40 mg DAILY PO 11/22/20 09:00 12/03/20 10:02 Quetiapine Fumarate (SEROquel) 600 mg HS PO 11/21/20 22:15 12/03/20 18:47 DC 12/02/20 20:08 Saliva Substitute (Biotene Moisturizing Mouth) 2 spray PRN TID PRN PO DRY MOUTH 11/21/20 22:15 Non-Formulary Medication (Semaglutide (Ozempic)) 1 mg QFR SQ 11/23/20 16:00 UNV Pentoxifylline (TRENtal) 400 mg TIDWMEALS PO 11/22/20 08:00 12/03/20 17:33 Vitamin D (Vitamin D3) 2,000 unit DAILY PO 11/22/20 09:00 12/03/20 09:56 Lactobacillus Rhamnosus (Culturelle) 1 cap BID PO 11/22/20 09:00 12/03/20 19:57 Mirtazapine (Remeron) 7.5 mg QHS PO 11/27/20 21:00 12/03/20 19:57 Divalproex Sodium (Depakote Er) 500 mg QHS PO 11/28/20 21:00 12/01/20 17:12 DC 11/30/20 20:45 Divalproex Sodium (Depakote Er) 1,000 mg QHS PO 12/01/20 21:00 12/03/20 19:57 Bupropion HCl (Wellbutrin Xl) 150 mg DAILY PO 12/03/20 09:00 12/03/20 09:55 Quetiapine Fumarate (SEROquel) 200 mg TID PO 12/03/20 21:00 12/03/20 19:57 Clonazepam (KlonoPIN) 0.5 mg TID PO 12/03/20 21:00 12/03/20 19:58 Current Medications Medications (Trade) Dose Ordered Sig/Leonides Route PRN Reason Start Time Stop Time Status Last Admin Dose Admin Bupropion HCl (Wellbutrin Xl) 150 mg DAILY PO 12/03/20 09:00 12/03/20 09:55 Quetiapine Fumarate (SEROquel) 200 mg TID PO 12/03/20 21:00 12/03/20 19:57 Clonazepam (KlonoPIN) 0.5 mg TID PO 12/03/20 21:00 12/03/20 19:58 I have reviewed the current psychotropics carefully including drug interactions. Risk benefit ratio favors no change other than as noted in my dictated progress note. Diagnosis: Problems: (1) Mild cognitive impairment (2) Schizoaffective disorder, bipolar type (3) Anxiety disorder, unspecified (4) Intellectual disability (5) Impulse disorder, unspecified (6) Bipolar disorder, curr episode mixed, severe, with psychotic features RAJIV VELAZQUEZ MD Dec 03, 2020 21:00
[2020-12-04] MEDS: LEVOTHYROXINE 112 MCG TABLET PO SCH (05:06)
[2020-12-04 06:08] VITALS: BP 146/92
[2020-12-04 07:09] LABS: BASO % 0 % (0-3); EOS # 0.3 x10^3/uL (0.0-0.7); EOS % 3 % (0-3); HEMATOCRIT 38.5 % (36.0-47.0); HEMOGLOBIN 12.9 g/dL (12.0-15.5); LYMPH # 3.3 x10^3/uL (1.0-4.8); LYMPH % 34 % (24-48); MEAN CORPUSCULAR HEMOGLOBIN 29 pg (25-35); MEAN CORPUSCULAR HGB CONC 34 g/dL (31-37); MEAN CORPUSCULAR VOLUME 85 fL (79-100); MONO # 0.6 x10^3/uL (0.0-1.1); MONO % 6 % (0-9); NEUT # 5.4 x10^3uL (1.8-7.7); NEUT % 56 % (31-73); PLATELET COUNT 243 x10^3/uL (140-400); RED BLOOD COUNT 4.53 x10^6/uL (3.50-5.40); RED CELL DISTRIBUTION WIDTH 13.1 % (11.5-14.5); WHITE BLOOD COUNT 9.6 x10^3/uL (4.0-11.0)
[2020-12-04 07:24] LABS: ALBUMIN/GLOBULIN RATIO 0.8 (1.0-1.7); ALK PHOS 131 U/L (46-116); ALT (SGPT) 24 U/L (14-59); ANION GAP 7 (6-14); AST (SGOT) 13 U/L (15-37); BLOOD UREA NITROGEN 16 mg/dL (7-20); BUN/CREATININE RATIO 20 (6-20); CALCIUM 8.8 mg/dL (8.5-10.1); CARBON DIOXIDE 28 mmol/L (21-32); CHLORIDE 103 mmol/L (98-107); CREATININE 0.8 mg/dL (0.6-1.0); GLUCOSE 155 mg/dL (70-99); POTASSIUM 3.7 mmol/L (3.5-5.1); SODIUM 138 mmol/L (136-145); TOTAL BILIRUBIN 0.3 mg/dL (0.2-1.0); TOTAL PROTEIN 6.9 g/dL (6.4-8.2)
[2020-12-04 07:25] LABS: VAL ACID 78 mcg/mL (50-100)
--- NOTE | 2020-12-04 08:28 | PDOC ---
Exam Note: Donte Note: This note is a late entry for 12/03/2020 covers elements not covered in my initial note. Subjective: The patient was seen face to face in the evening of 12/03/2020 with Iftikhar COPELAND. Discussed with nursing staff, reviewed the chart. The patient slept 6 hours previous night. Overall she has been sexually somewhat inappropriate, intrusive, getting into the room of other patients, rest of the time somewhat withdrawn. Review of Systems: No CV, , pulmonary, eye, ENT system symptoms on review. Mental Status Exam: The patient is oriented reasonably. She is pleasant, verbal. Abstraction is fair. Computation is impaired. Language function is intact. Mood and affect less grandiose, less labile. Laboratory Data: Reviewed. Impression: Schizoaffective disorder, bipolar type, mixed with psychotic features. Anxiety disorder unspecified. Impulse control disorder unspecified. Plan: Continue psychotropics from initial note. Change Ativan 0.5 mg t.i.d. to Klonopin 0.5 mg t.i.d. It should be more efficacious for her bipolar symptoms. Change Seroquel 600 mg h.s. to 200 mg t.i.d. Rest unchanged for now. Assessment: Vital Signs/I&O: Vital Signs Date Time Temp Pulse Resp B/P (MAP) Pulse Ox O2 Delivery O2 Flow Rate FiO2 12/04/20 06:08 96.6 87 18 146/92 (110) 97 Room Air I & O 12/03/20 12/03/20 12/04/20 15:00 23:00 07:00 Intake Total 1020 ml 480 ml Balance 1020 ml 480 ml Labs: Laboratory Tests Test 12/03/20 12:02 12/03/20 17:29 12/03/20 19:05 12/04/20 06:40 Glucose (Fingerstick) 163 mg/dL (70-99) H 212 mg/dL (70-99) H 222 mg/dL (70-99) H White Blood Count 9.6 x10^3/uL (4.0-11.0) Red Blood Count 4.53 x10^6/uL (3.50-5.40) Hemoglobin 12.9 g/dL (12.0-15.5) Hematocrit 38.5 % (36.0-47.0) Mean Corpuscular Volume 85 fL (79-100) Mean Corpuscular Hemoglobin 29 pg (25-35) Mean Corpuscular Hemoglobin Concent 34 g/dL (31-37) Red Cell Distribution Width 13.1 % (11.5-14.5) Platelet Count 243 x10^3/uL (140-400) Neutrophils (%) (Auto) 56 % (31-73) Lymphocytes (%) (Auto) 34 % (24-48) Monocytes (%) (Auto) 6 % (0-9) Eosinophils (%) (Auto) 3 % (0-3) Basophils (%) (Auto) 0 % (0-3) Neutrophils # (Auto) 5.4 x10^3uL (1.8-7.7) Lymphocytes # (Auto) 3.3 x10^3/uL (1.0-4.8) Monocytes # (Auto) 0.6 x10^3/uL (0.0-1.1) Eosinophils # (Auto) 0.3 x10^3/uL (0.0-0.7) Basophils # (Auto) 0.0 x10^3/uL (0.0-0.2) Sodium Level 138 mmol/L (136-145) Potassium Level 3.7 mmol/L (3.5-5.1) Chloride Level 103 mmol/L (98-107) Carbon Dioxide Level 28 mmol/L (21-32) Anion Gap 7 (6-14) Blood Urea Nitrogen 16 mg/dL (7-20) Creatinine 0.8 mg/dL (0.6-1.0) Estimated GFR (Cockcroft-Gault) 72.0 BUN/Creatinine Ratio 20 (6-20) Glucose Level 155 mg/dL (70-99) H Calcium Level 8.8 mg/dL (8.5-10.1) Total Bilirubin 0.3 mg/dL (0.2-1.0) Aspartate Amino Transferase (AST) 13 U/L (15-37) L Alanine Aminotransferase (ALT) 24 U/L (14-59) Alkaline Phosphatase 131 U/L (46-116) H Total Protein 6.9 g/dL (6.4-8.2) Albumin 3.0 g/dL (3.4-5.0) L Albumin/Globulin Ratio 0.8 (1.0-1.7) L Valproic Acid Level 78 mcg/mL (50-100) Valproic Acid Last Dose Date 12/03/20 Valproic Acid Last Dose Time 2100 Test 12/04/20 07:35 Glucose (Fingerstick) 155 mg/dL (70-99) H Current Medications: Meds: Laboratory Tests Test 12/03/20 12:02 12/03/20 17:29 12/03/20 19:05 12/04/20 06:40 Glucose (Fingerstick) 163 mg/dL 212 mg/dL 222 mg/dL White Blood Count 9.6 x10^3/uL Red Blood Count 4.53 x10^6/uL Hemoglobin 12.9 g/dL Hematocrit 38.5 % Mean Corpuscular Volume 85 fL Mean Corpuscular Hemoglobin 29 pg Mean Corpuscular Hemoglobin Concent 34 g/dL Red Cell Distribution Width 13.1 % Platelet Count 243 x10^3/uL Neutrophils (%) (Auto) 56 % Lymphocytes (%) (Auto) 34 % Monocytes (%) (Auto) 6 % Eosinophils (%) (Auto) 3 % Basophils (%) (Auto) 0 % Neutrophils # (Auto) 5.4 x10^3uL Lymphocytes # (Auto) 3.3 x10^3/uL Monocytes # (Auto) 0.6 x10^3/uL Eosinophils # (Auto) 0.3 x10^3/uL Basophils # (Auto) 0.0 x10^3/uL Sodium Level 138 mmol/L Potassium Level 3.7 mmol/L Chloride Level 103 mmol/L Carbon Dioxide Level 28 mmol/L Anion Gap 7 Blood Urea Nitrogen 16 mg/dL Creatinine 0.8 mg/dL Estimated GFR (Cockcroft-Gault) 72.0 BUN/Creatinine Ratio 20 Glucose Level 155 mg/dL Calcium Level 8.8 mg/dL Total Bilirubin 0.3 mg/dL Aspartate Amino Transf (AST/SGOT) 13 U/L Alanine Aminotransferase (ALT/SGPT) 24 U/L Alkaline Phosphatase 131 U/L Total Protein 6.9 g/dL Albumin 3.0 g/dL Albumin/Globulin Ratio 0.8 Valproic Acid (Depakene) Level 78 mcg/mL Valproic Acid Last Dose Date 12/03/20 Valproic Acid Last Dose Time 2100 Test 12/04/20 07:35 Glucose (Fingerstick) 155 mg/dL Current Medications Medications (Trade) Dose Ordered Sig/Leonides Route PRN Reason Start Time Stop Time Status Last Admin Dose Admin Multi-Ingredient Ointment (Analgesic [place]) 1 swathi PRN QID PRN TP MUSCLE PAIN 11/21/20 21:00 Al Hydroxide/Mg Hydroxide (Mylanta Plus Xs) 15 ml PRN AFTMEALHC PRN PO DYSPEPSIA 11/21/20 21:00 Magnesium Hydroxide (Milk Of Magnesia) 2,400 mg PRN QHS PRN PO 1ST CHOICE CONSTIPATION 11/21/20 21:00 Acetaminophen (Tylenol) 650 mg PRN Q4HRS PRN PO MILD PAIN / TEMP > 100.3'F 11/21/20 21:45 Amoxicillin/ Clavulanate Potassium (Augmentin 875/ 125mg) 1 tab BID PO 11/22/20 09:00 11/24/20 21:01 DC 11/24/20 20:55 Aspirin (Aspirin Enteric Coated) 81 mg DAILY PO 11/22/20 09:00 12/03/20 09:56 Bisacodyl (Dulcolax Tab) 5 mg PRN DAILY PRN PO 2ND CHOICE CONSTIPATION 11/21/20 21:45 Furosemide (Lasix) 40 mg DAILY PO 11/22/20 09:00 12/03/20 09:56 Acetaminophen/ Hydrocodone Bitart (Lortab 5/325) 1 tab PRN BID PRN PO mod-sev PAIN 11/21/20 21:45 11/28/20 16:52 Ibuprofen (Motrin) 200 mg PRN Q6HRS PRN PO MILD PAIN / TEMP > 100.3'F 11/21/20 21:45 Cancel Albuterol/ Ipratropium (Duoneb) 3 ml PRN BID PRN NEB SHORTNESS OF BREATH 11/21/20 21:45 Levothyroxine Sodium (Synthroid) 112 mcg DAILY06 PO 11/22/20 06:00 12/04/20 05:06 Lorazepam (Ativan) 0.5 mg TID PO 11/21/20 22:00 12/03/20 18:47 DC 12/03/20 13:59 Zolpidem Tartrate (Ambien) 5 mg HS PO 11/21/20 22:00 11/27/20 18:02 DC 11/26/20 20:44 Betamethasone Dipropion Augmented (Betamethasone Dp Aug 0.05% Cream) 1 swathi PRN BID PRN TP RASH 11/21/20 22:15 Multi-Ingred Cream/Lotion/Oil/ Oint (Hydrocerin) 1 swathi PRN BID PRN TP Dry Hands 11/21/20 22:00 Guaifenesin (Robitussin Dm) 10 ml PRN Q8HRS PRN PO COUGH 11/21/20 22:00 Insulin Human Lispro (HumaLOG) 20 units TIDWMEALS SQ 11/22/20 08:00 12/03/20 17:34 Insulin Glargine (Lantus Syringe) 30 unit BID SQ 11/21/20 22:00 12/03/20 21:10 Magnesium Chloride (Mag Delay) 64 mg DAILY PO 11/22/20 09:00 12/03/20 09:57 Non-Formulary Medication (Menthol (Biofreeze)) 1 swathi QID PRN TP MUSCLE PAIN 11/21/20 21:45 UNV Pantoprazole Sodium (Protonix) 40 mg DAILY PO 11/22/20 09:00 12/03/20 09:56 Oxybutynin Chloride (Ditropan) 5 mg DAILY PO 11/22/20 09:00 12/03/20 09:56 Polyethylene Glycol (miraLAX) 17 gm DAILY PO 11/22/20 09:00 12/03/20 09:57 Potassium Chloride (Klor-Con) 10 meq DAILY PO 11/22/20 09:00 12/03/20 09:57 Propranolol HCl (Inderal) 40 mg DAILY PO 11/22/20 09:00 12/03/20 10:02 Quetiapine Fumarate (SEROquel) 600 mg HS PO 11/21/20 22:15 12/03/20 18:47 DC 12/02/20 20:08 Saliva Substitute (Biotene Moisturizing Mouth) 2 spray PRN TID PRN PO DRY MOUTH 11/21/20 22:15 Non-Formulary Medication (Semaglutide (Ozempic)) 1 mg QFR SQ 11/23/20 16:00 UNV Pentoxifylline (TRENtal) 400 mg TIDWMEALS PO 11/22/20 08:00 12/03/20 17:33 Vitamin D (Vitamin D3) 2,000 unit DAILY PO 11/22/20 09:00 12/03/20 09:56 Lactobacillus Rhamnosus (Culturelle) 1 cap BID PO 11/22/20 09:00 12/03/20 19:57 Mirtazapine (Remeron) 7.5 mg QHS PO 11/27/20 21:00 12/03/20 19:57 Divalproex Sodium (Depakote Er) 500 mg QHS PO 11/28/20 21:00 12/01/20 17:12 DC 11/30/20 20:45 Divalproex Sodium (Depakote Er) 1,000 mg QHS PO 12/01/20 21:00 12/03/20 19:57 Bupropion HCl (Wellbutrin Xl) 150 mg DAILY PO 12/03/20 09:00 12/03/20 09:55 Quetiapine Fumarate (SEROquel) 200 mg TID PO 12/03/20 21:00 12/03/20 19:57 Clonazepam (KlonoPIN) 0.5 mg TID PO 12/03/20 21:00 12/03/20 19:58 Current Medications Medications (Trade) Dose Ordered Sig/Leonides Route PRN Reason Start Time Stop Time Status Last Admin Dose Admin Bupropion HCl (Wellbutrin Xl) 150 mg DAILY PO 12/03/20 09:00 12/03/20 09:55 Quetiapine Fumarate (SEROquel) 200 mg TID PO 12/03/20 21:00 12/03/20 19:57 Clonazepam (KlonoPIN) 0.5 mg TID PO 12/03/20 21:00 12/03/20 19:58 I have reviewed the current psychotropics carefully including drug interactions. Risk benefit ratio favors no change other than as noted in my dictated progress note. Diagnosis: Problems: (1) Mild cognitive impairment (2) Schizoaffective disorder, bipolar type (3) Anxiety disorder, unspecified (4) Intellectual disability (5) Impulse disorder, unspecified (6) Bipolar disorder, curr episode mixed, severe, with psychotic features RAJIV VELAZQUEZ MD Dec 04, 2020 08:28
[2020-12-04] MEDS: buPROPion XL 150 MG TAB.ER.24H PO SCH (09:24)
[2020-12-04] MEDS: PANTOPRAZOLE 40 MG TABLET. PO SCH (09:24)
[2020-12-04] MEDS: PENTOXIFYLLINE ER 400 MG TABLET.ER. PO SCH ×3 (09:24→17:43)
[2020-12-04] MEDS: POTASSIUM CHLORIDE 10 MEQ TABLET.ER. PO SCH (09:24)
[2020-12-04] MEDS: QUEtiapine 100 MG TABLET. PO SCH ×3 (09:24→20:46)
[2020-12-04] MEDS: MAGNESIUM CHLORIDE ER 64 MG TABLET.ER PO SCH (09:24)
[2020-12-04] MEDS: POLYETHYLENE GLYCOL 3350 17 GM PACKET. PO SCH (09:24)
[2020-12-04] MEDS: LACTOBACILLUS RHAMNOSUS GG 1 CAPSULE. PO SCH ×2 (09:24→20:45)
[2020-12-04] MEDS: ASPIRIN ENTERIC COATED 81 MG TABLET.DR. PO SCH (09:25)
[2020-12-04] MEDS: FUROSEMIDE 40 MG TABLET PO SCH (09:25)
[2020-12-04] MEDS: OXYBUTYNIN CHLORIDE 5 MG TABLET PO SCH (09:25)
[2020-12-04] MEDS: CHOLECALCIFEROL (VITAMIN D3) 1,000 UNIT TABLET PO SCH (09:25)
[2020-12-04] MEDS: PROPRANOLOL 20 MG TABLET. PO SCH (09:26)
[2020-12-04] MEDS: clonazePAM 0.5 MG TABLET PO SCH ×3 (09:26→20:46)
[2020-12-04] MEDS: INSULIN LISPRO 300 UNITS/3 ML VIAL. SQ SCH ×3 (09:27→17:00)
[2020-12-04] MEDS: INSULIN GLARGINE SYRINGE. SQ SCH ×2 (09:28→22:06)
[2020-12-04] MEDS: HYDROcodone/APAP 5/325MG 1 TAB TABLET PO PRN (14:23)
[2020-12-04 16:15] VITALS: BP 100/57
[2020-12-04] MEDS: MIRTAZAPINE 7.5 MG TABLET. PO SCH (20:46)
[2020-12-04] MEDS: DIVALPROEX ER 500 MG TAB.ER.24H PO SCH (20:47)
--- NOTE | 2020-12-04 21:31 | PDOC ---
Exam Note: Donte Note: Please also refer to the separate dictated note~for this date of service dictated separately.~Patient seen individually. Discussed the patient with Nursing staff reviewed the chart.~Reviewed interim history and current functioning. Reviewed vital signs,~Labs/ Radiology~and current medications noted below. Continue current treatment with the changes noted in the dictated addendum note Assessment: Vital Signs/I&O: Vital Signs Date Time Temp Pulse Resp B/P (MAP) Pulse Ox O2 Delivery O2 Flow Rate FiO2 12/04/20 16:15 97.2 79 16 100/57 (71) 98 Room Air I & O 12/03/20 12/03/20 12/04/20 15:00 23:00 07:00 Intake Total 1020 ml 480 ml Balance 1020 ml 480 ml Labs: Laboratory Tests Test 12/04/20 06:40 12/04/20 07:35 12/04/20 11:49 12/04/20 17:01 White Blood Count 9.6 x10^3/uL (4.0-11.0) Red Blood Count 4.53 x10^6/uL (3.50-5.40) Hemoglobin 12.9 g/dL (12.0-15.5) Hematocrit 38.5 % (36.0-47.0) Mean Corpuscular Volume 85 fL (79-100) Mean Corpuscular Hemoglobin 29 pg (25-35) Mean Corpuscular Hemoglobin Concent 34 g/dL (31-37) Red Cell Distribution Width 13.1 % (11.5-14.5) Platelet Count 243 x10^3/uL (140-400) Neutrophils (%) (Auto) 56 % (31-73) Lymphocytes (%) (Auto) 34 % (24-48) Monocytes (%) (Auto) 6 % (0-9) Eosinophils (%) (Auto) 3 % (0-3) Basophils (%) (Auto) 0 % (0-3) Neutrophils # (Auto) 5.4 x10^3uL (1.8-7.7) Lymphocytes # (Auto) 3.3 x10^3/uL (1.0-4.8) Monocytes # (Auto) 0.6 x10^3/uL (0.0-1.1) Eosinophils # (Auto) 0.3 x10^3/uL (0.0-0.7) Basophils # (Auto) 0.0 x10^3/uL (0.0-0.2) Sodium Level 138 mmol/L (136-145) Potassium Level 3.7 mmol/L (3.5-5.1) Chloride Level 103 mmol/L (98-107) Carbon Dioxide Level 28 mmol/L (21-32) Anion Gap 7 (6-14) Blood Urea Nitrogen 16 mg/dL (7-20) Creatinine 0.8 mg/dL (0.6-1.0) Estimated GFR (Cockcroft-Gault) 72.0 BUN/Creatinine Ratio 20 (6-20) Glucose Level 155 mg/dL (70-99) H Calcium Level 8.8 mg/dL (8.5-10.1) Total Bilirubin 0.3 mg/dL (0.2-1.0) Aspartate Amino Transferase (AST) 13 U/L (15-37) L Alanine Aminotransferase (ALT) 24 U/L (14-59) Alkaline Phosphatase 131 U/L (46-116) H Total Protein 6.9 g/dL (6.4-8.2) Albumin 3.0 g/dL (3.4-5.0) L Albumin/Globulin Ratio 0.8 (1.0-1.7) L Valproic Acid Level 78 mcg/mL (50-100) Valproic Acid Last Dose Date 12/03/20 Valproic Acid Last Dose Time 2100 Glucose (Fingerstick) 155 mg/dL (70-99) H 122 mg/dL (70-99) H 88 mg/dL (70-99) Test 12/04/20 19:12 Glucose (Fingerstick) 183 mg/dL (70-99) H Current Medications: Meds: Laboratory Tests Test 12/04/20 06:40 12/04/20 07:35 12/04/20 11:49 12/04/20 17:01 White Blood Count 9.6 x10^3/uL Red Blood Count 4.53 x10^6/uL Hemoglobin 12.9 g/dL Hematocrit 38.5 % Mean Corpuscular Volume 85 fL Mean Corpuscular Hemoglobin 29 pg Mean Corpuscular Hemoglobin Concent 34 g/dL Red Cell Distribution Width 13.1 % Platelet Count 243 x10^3/uL Neutrophils (%) (Auto) 56 % Lymphocytes (%) (Auto) 34 % Monocytes (%) (Auto) 6 % Eosinophils (%) (Auto) 3 % Basophils (%) (Auto) 0 % Neutrophils # (Auto) 5.4 x10^3uL Lymphocytes # (Auto) 3.3 x10^3/uL Monocytes # (Auto) 0.6 x10^3/uL Eosinophils # (Auto) 0.3 x10^3/uL Basophils # (Auto) 0.0 x10^3/uL Sodium Level 138 mmol/L Potassium Level 3.7 mmol/L Chloride Level 103 mmol/L Carbon Dioxide Level 28 mmol/L Anion Gap 7 Blood Urea Nitrogen 16 mg/dL Creatinine 0.8 mg/dL Estimated GFR (Cockcroft-Gault) 72.0 BUN/Creatinine Ratio 20 Glucose Level 155 mg/dL Calcium Level 8.8 mg/dL Total Bilirubin 0.3 mg/dL Aspartate Amino Transf (AST/SGOT) 13 U/L Alanine Aminotransferase (ALT/SGPT) 24 U/L Alkaline Phosphatase 131 U/L Total Protein 6.9 g/dL Albumin 3.0 g/dL Albumin/Globulin Ratio 0.8 Valproic Acid (Depakene) Level 78 mcg/mL Valproic Acid Last Dose Date 12/03/20 Valproic Acid Last Dose Time 2100 Glucose (Fingerstick) 155 mg/dL 122 mg/dL 88 mg/dL Test 12/04/20 19:12 Glucose (Fingerstick) 183 mg/dL Current Medications Medications (Trade) Dose Ordered Sig/Leonides Route PRN Reason Start Time Stop Time Status Last Admin Dose Admin Multi-Ingredient Ointment (Analgesic [place]) 1 swathi PRN QID PRN TP MUSCLE PAIN 11/21/20 21:00 Al Hydroxide/Mg Hydroxide (Mylanta Plus Xs) 15 ml PRN AFTMEALHC PRN PO DYSPEPSIA 11/21/20 21:00 Magnesium Hydroxide (Milk Of Magnesia) 2,400 mg PRN QHS PRN PO 1ST CHOICE CONSTIPATION 11/21/20 21:00 Acetaminophen (Tylenol) 650 mg PRN Q4HRS PRN PO MILD PAIN / TEMP > 100.3'F 11/21/20 21:45 Amoxicillin/ Clavulanate Potassium (Augmentin 875/ 125mg) 1 tab BID PO 11/22/20 09:00 11/24/20 21:01 DC 1/16/21 20:55 Aspirin (Aspirin Enteric Coated) 81 mg DAILY PO 11/22/20 09:00 12/04/20 09:25 Bisacodyl (Dulcolax Tab) 5 mg PRN DAILY PRN PO 2ND CHOICE CONSTIPATION 11/21/20 21:45 Furosemide (Lasix) 40 mg DAILY PO 11/22/20 09:00 12/04/20 09:25 Acetaminophen/ Hydrocodone Bitart (Lortab 5/325) 1 tab PRN BID PRN PO mod-sev PAIN 11/21/20 21:45 12/04/20 14:23 Ibuprofen (Motrin) 200 mg PRN Q6HRS PRN PO MILD PAIN / TEMP > 100.3'F 11/21/20 21:45 Cancel Albuterol/ Ipratropium (Duoneb) 3 ml PRN BID PRN NEB SHORTNESS OF BREATH 11/21/20 21:45 Levothyroxine Sodium (Synthroid) 112 mcg DAILY06 PO 11/22/20 06:00 12/04/20 05:06 Lorazepam (Ativan) 0.5 mg TID PO 11/21/20 22:00 12/03/20 18:47 DC 12/03/20 13:59 Zolpidem Tartrate (Ambien) 5 mg HS PO 11/21/20 22:00 11/27/20 18:02 DC 11/26/20 20:44 Betamethasone Dipropion Augmented (Betamethasone Dp Aug 0.05% Cream) 1 swathi PRN BID PRN TP RASH 11/21/20 22:15 Multi-Ingred Cream/Lotion/Oil/ Oint (Hydrocerin) 1 swathi PRN BID PRN TP Dry Hands 11/21/20 22:00 Guaifenesin (Robitussin Dm) 10 ml PRN Q8HRS PRN PO COUGH 11/21/20 22:00 Insulin Human Lispro (HumaLOG) 20 units TIDWMEALS SQ 11/22/20 08:00 12/04/20 12:20 Insulin Glargine (Lantus Syringe) 30 unit BID SQ 11/21/20 22:00 12/04/20 09:28 Magnesium Chloride (Mag Delay) 64 mg DAILY PO 11/22/20 09:00 12/04/20 09:24 Non-Formulary Medication (Menthol (Biofreeze)) 1 swathi QID PRN TP MUSCLE PAIN 11/21/20 21:45 UNV Pantoprazole Sodium (Protonix) 40 mg DAILY PO 11/22/20 09:00 12/04/20 09:24 Oxybutynin Chloride (Ditropan) 5 mg DAILY PO 11/22/20 09:00 12/04/20 09:25 Polyethylene Glycol (miraLAX) 17 gm DAILY PO 11/22/20 09:00 12/04/20 09:24 Potassium Chloride (Klor-Con) 10 meq DAILY PO 11/22/20 09:00 12/04/20 09:24 Propranolol HCl (Inderal) 40 mg DAILY PO 11/22/20 09:00 12/04/20 09:26 Quetiapine Fumarate (SEROquel) 600 mg HS PO 11/21/20 22:15 12/03/20 18:47 DC 12/02/20 20:08 Saliva Substitute (Biotene Moisturizing Mouth) 2 spray PRN TID PRN PO DRY MOUTH 11/21/20 22:15 Non-Formulary Medication (Semaglutide (Ozempic)) 1 mg QFR SQ 11/23/20 16:00 UNV Pentoxifylline (TRENtal) 400 mg TIDWMEALS PO 11/22/20 08:00 12/04/20 17:43 Vitamin D (Vitamin D3) 2,000 unit DAILY PO 11/22/20 09:00 12/04/20 09:25 Lactobacillus Rhamnosus (Culturelle) 1 cap BID PO 11/22/20 09:00 12/04/20 20:45 Mirtazapine (Remeron) 7.5 mg QHS PO 11/27/20 21:00 12/04/20 20:46 Divalproex Sodium (Depakote Er) 500 mg QHS PO 11/28/20 21:00 12/01/20 17:12 DC 11/30/20 20:45 Divalproex Sodium (Depakote Er) 1,000 mg QHS PO 12/01/20 21:00 12/04/20 20:47 Bupropion HCl (Wellbutrin Xl) 150 mg DAILY PO 12/03/20 09:00 1/26/21 09:24 Quetiapine Fumarate (SEROquel) 200 mg TID PO 12/03/20 21:00 12/04/20 20:46 Clonazepam (KlonoPIN) 0.5 mg TID PO 12/03/20 21:00 12/04/20 20:46 Trazodone HCl (Desyrel) 100 mg PRN QHS PRN PO INSOMNIA, MAY REPEAT X1 12/04/20 19:15 I have reviewed the current psychotropics carefully including drug interactions. Risk benefit ratio favors no change other than as noted in my dictated progress note. Diagnosis: Problems: (1) Mild cognitive impairment (2) Schizoaffective disorder, bipolar type (3) Anxiety disorder, unspecified (4) Intellectual disability (5) Impulse disorder, unspecified (6) Bipolar disorder, curr episode mixed, severe, with psychotic features RAJIV VELAZQUEZ MD Dec 04, 2020 21:31
[2020-12-04] MEDS: traZODone 100 MG TABLET. PO PRN (23:27)
[2020-12-05] MEDS: LEVOTHYROXINE 112 MCG TABLET PO SCH (05:30)
[2020-12-05 06:05] VITALS: BP 123/81
[2020-12-05] MEDS: INSULIN LISPRO 300 UNITS/3 ML VIAL. SQ SCH ×3 (08:00→18:08)
[2020-12-05] MEDS: CHOLECALCIFEROL (VITAMIN D3) 1,000 UNIT TABLET PO SCH (10:26)
[2020-12-05] MEDS: buPROPion XL 150 MG TAB.ER.24H PO SCH (10:26)
[2020-12-05] MEDS: LACTOBACILLUS RHAMNOSUS GG 1 CAPSULE. PO SCH ×2 (10:26→21:10)
[2020-12-05] MEDS: clonazePAM 0.5 MG TABLET PO SCH ×3 (10:26→21:12)
[2020-12-05] MEDS: PANTOPRAZOLE 40 MG TABLET. PO SCH (10:27)
[2020-12-05] MEDS: PROPRANOLOL 20 MG TABLET. PO SCH (10:27)
[2020-12-05] MEDS: QUEtiapine 100 MG TABLET. PO SCH ×3 (10:27→21:11)
[2020-12-05] MEDS: MAGNESIUM CHLORIDE ER 64 MG TABLET.ER PO SCH (10:27)
[2020-12-05] MEDS: PENTOXIFYLLINE ER 400 MG TABLET.ER. PO SCH ×3 (10:28→18:06)
[2020-12-05] MEDS: FUROSEMIDE 40 MG TABLET PO SCH (10:35)
[2020-12-05] MEDS: POLYETHYLENE GLYCOL 3350 17 GM PACKET. PO SCH (10:35)
[2020-12-05] MEDS: OXYBUTYNIN CHLORIDE 5 MG TABLET PO SCH (10:35)
[2020-12-05] MEDS: ASPIRIN ENTERIC COATED 81 MG TABLET.DR. PO SCH (10:35)
[2020-12-05] MEDS: POTASSIUM CHLORIDE 10 MEQ TABLET.ER. PO SCH (10:35)
[2020-12-05] MEDS: INSULIN GLARGINE SYRINGE. SQ SCH ×2 (10:38→21:11)
[2020-12-05 17:43] VITALS: BP 154/56
[2020-12-05] MEDS: HYDROcodone/APAP 5/325MG 1 TAB TABLET PO PRN (18:58)
--- NOTE | 2020-12-05 20:53 | PDOC ---
Exam Note: Donte Note: Please also refer to the separate dictated note~for this date of service dictated separately.~Patient seen individually. Discussed the patient with Nursing staff reviewed the chart.~Reviewed interim history and current functioning. Reviewed vital signs,~Labs/ Radiology~and current medications noted below. Continue current treatment with the changes noted in the dictated addendum note Assessment: Vital Signs/I&O: Vital Signs Date Time Temp Pulse Resp B/P (MAP) Pulse Ox O2 Delivery O2 Flow Rate FiO2 12/05/20 18:58 16 97 12/05/20 17:43 97.9 78 154/56 (88) 12/05/20 06:05 Room Air I & O 12/04/20 12/04/20 12/05/20 15:00 23:00 07:00 Intake Total 600 ml 600 ml Balance 600 ml 600 ml Labs: Laboratory Tests Test 12/05/20 07:31 12/05/20 11:21 12/05/20 16:06 12/05/20 19:13 Glucose (Fingerstick) 121 mg/dL (70-99) H 263 mg/dL (70-99) H 119 mg/dL (70-99) H 196 mg/dL (70-99) H Current Medications: Meds: Laboratory Tests Test 12/05/20 07:31 12/05/20 11:21 12/05/20 16:06 12/05/20 19:13 Glucose (Fingerstick) 121 mg/dL 263 mg/dL 119 mg/dL 196 mg/dL Current Medications Medications (Trade) Dose Ordered Sig/Leonides Route PRN Reason Start Time Stop Time Status Last Admin Dose Admin Multi-Ingredient Ointment (Analgesic [place]) 1 swathi PRN QID PRN TP MUSCLE PAIN 11/21/20 21:00 Al Hydroxide/Mg Hydroxide (Mylanta Plus Xs) 15 ml PRN AFTMEALHC PRN PO DYSPEPSIA 11/21/20 21:00 Magnesium Hydroxide (Milk Of Magnesia) 2,400 mg PRN QHS PRN PO 1ST CHOICE CONSTIPATION 11/21/20 21:00 Acetaminophen (Tylenol) 650 mg PRN Q4HRS PRN PO MILD PAIN / TEMP > 100.3'F 11/21/20 21:45 Amoxicillin/ Clavulanate Potassium (Augmentin 875/ 125mg) 1 tab BID PO 11/22/20 09:00 11/24/20 21:01 DC 11/24/20 20:55 Aspirin (Aspirin Enteric Coated) 81 mg DAILY PO 11/22/20 09:00 12/05/20 10:35 Bisacodyl (Dulcolax Tab) 5 mg PRN DAILY PRN PO 2ND CHOICE CONSTIPATION 11/21/20 21:45 Furosemide (Lasix) 40 mg DAILY PO 11/22/20 09:00 12/05/20 10:35 Acetaminophen/ Hydrocodone Bitart (Lortab 5/325) 1 tab PRN BID PRN PO mod-sev PAIN 11/21/20 21:45 12/05/20 18:58 Ibuprofen (Motrin) 200 mg PRN Q6HRS PRN PO MILD PAIN / TEMP > 100.3'F 11/21/20 21:45 Cancel Albuterol/ Ipratropium (Duoneb) 3 ml PRN BID PRN NEB SHORTNESS OF BREATH 11/21/20 21:45 Levothyroxine Sodium (Synthroid) 112 mcg DAILY06 PO 11/22/20 06:00 12/05/20 05:30 Lorazepam (Ativan) 0.5 mg TID PO 11/21/20 22:00 12/03/20 18:47 DC 12/03/20 13:59 Zolpidem Tartrate (Ambien) 5 mg HS PO 11/21/20 22:00 11/27/20 18:02 DC 11/26/20 20:44 Betamethasone Dipropion Augmented (Betamethasone Dp Aug 0.05% Cream) 1 swathi PRN BID PRN TP RASH 11/21/20 22:15 Multi-Ingred Cream/Lotion/Oil/ Oint (Hydrocerin) 1 swathi PRN BID PRN TP Dry Hands 11/21/20 22:00 Guaifenesin (Robitussin Dm) 10 ml PRN Q8HRS PRN PO COUGH 11/21/20 22:00 Insulin Human Lispro (HumaLOG) 20 units TIDWMEALS SQ 11/22/20 08:00 12/05/20 18:08 Insulin Glargine (Lantus Syringe) 30 unit BID SQ 11/21/20 22:00 12/05/20 10:38 Magnesium Chloride (Mag Delay) 64 mg DAILY PO 11/22/20 09:00 12/05/20 10:27 Non-Formulary Medication (Menthol (Biofreeze)) 1 swathi QID PRN TP MUSCLE PAIN 11/21/20 21:45 UNV Pantoprazole Sodium (Protonix) 40 mg DAILY PO 11/22/20 09:00 12/05/20 10:27 Oxybutynin Chloride (Ditropan) 5 mg DAILY PO 11/22/20 09:00 12/05/20 10:35 Polyethylene Glycol (miraLAX) 17 gm DAILY PO 11/22/20 09:00 12/05/20 10:35 Potassium Chloride (Klor-Con) 10 meq DAILY PO 11/22/20 09:00 12/05/20 10:35 Propranolol HCl (Inderal) 40 mg DAILY PO 11/22/20 09:00 12/05/20 10:27 Quetiapine Fumarate (SEROquel) 600 mg HS PO 11/21/20 22:15 12/03/20 18:47 DC 12/02/20 20:08 Saliva Substitute (Biotene Moisturizing Mouth) 2 spray PRN TID PRN PO DRY MOUTH 11/21/20 22:15 Non-Formulary Medication (Semaglutide (Ozempic)) 1 mg QFR SQ 11/23/20 16:00 UNV Pentoxifylline (TRENtal) 400 mg TIDWMEALS PO 11/22/20 08:00 12/05/20 18:06 Vitamin D (Vitamin D3) 2,000 unit DAILY PO 11/22/20 09:00 12/05/20 10:26 Lactobacillus Rhamnosus (Culturelle) 1 cap BID PO 11/22/20 09:00 12/05/20 10:26 Mirtazapine (Remeron) 7.5 mg QHS PO 11/27/20 21:00 12/04/20 20:46 Divalproex Sodium (Depakote Er) 500 mg QHS PO 11/28/20 21:00 12/01/20 17:12 DC 11/30/20 20:45 Divalproex Sodium (Depakote Er) 1,000 mg QHS PO 12/01/20 21:00 12/04/20 20:47 Bupropion HCl (Wellbutrin Xl) 150 mg DAILY PO 12/03/20 09:00 12/05/20 10:26 Quetiapine Fumarate (SEROquel) 200 mg TID PO 12/03/20 21:00 12/05/20 12:34 Clonazepam (KlonoPIN) 0.5 mg TID PO 12/03/20 21:00 12/05/20 12:34 Trazodone HCl (Desyrel) 100 mg PRN QHS PRN PO INSOMNIA, MAY REPEAT X1 12/04/20 19:15 12/04/20 23:27 I have reviewed the current psychotropics carefully including drug interactions. Risk benefit ratio favors no change other than as noted in my dictated progress note. Diagnosis: Problems: (1) Mild cognitive impairment (2) Schizoaffective disorder, bipolar type (3) Anxiety disorder, unspecified (4) Intellectual disability (5) Impulse disorder, unspecified (6) Bipolar disorder, curr episode mixed, severe, with psychotic features RAJIV VELAZQUEZ MD Dec 05, 2020 20:53
[2020-12-05] MEDS: DIVALPROEX ER 500 MG TAB.ER.24H PO SCH (21:10)
[2020-12-05] MEDS: MIRTAZAPINE 7.5 MG TABLET. PO SCH (21:11)
[2020-12-06] MEDS: LEVOTHYROXINE 112 MCG TABLET PO SCH (05:00)
[2020-12-06 06:22] VITALS: BP 124/73
[2020-12-06] MEDS: CHOLECALCIFEROL (VITAMIN D3) 1,000 UNIT TABLET PO SCH (07:47)
[2020-12-06] MEDS: FUROSEMIDE 40 MG TABLET PO SCH (07:48)
[2020-12-06] MEDS: LACTOBACILLUS RHAMNOSUS GG 1 CAPSULE. PO SCH ×2 (07:48→20:06)
[2020-12-06] MEDS: OXYBUTYNIN CHLORIDE 5 MG TABLET PO SCH (07:48)
[2020-12-06] MEDS: ASPIRIN ENTERIC COATED 81 MG TABLET.DR. PO SCH (07:48)
[2020-12-06] MEDS: buPROPion XL 150 MG TAB.ER.24H PO SCH (07:48)
[2020-12-06] MEDS: QUEtiapine 100 MG TABLET. PO SCH (07:48)
[2020-12-06] MEDS: PANTOPRAZOLE 40 MG TABLET. PO SCH (07:48)
[2020-12-06] MEDS: PENTOXIFYLLINE ER 400 MG TABLET.ER. PO SCH ×3 (07:48→17:26)
[2020-12-06] MEDS: MAGNESIUM CHLORIDE ER 64 MG TABLET.ER PO SCH (07:48)
[2020-12-06] MEDS: POTASSIUM CHLORIDE 10 MEQ TABLET.ER. PO SCH (07:49)
[2020-12-06] MEDS: POLYETHYLENE GLYCOL 3350 17 GM PACKET. PO SCH (07:49)
[2020-12-06] MEDS: PROPRANOLOL 20 MG TABLET. PO SCH (07:49)
[2020-12-06] MEDS: clonazePAM 0.5 MG TABLET PO SCH ×3 (07:49→20:07)
[2020-12-06] MEDS: INSULIN LISPRO 300 UNITS/3 ML VIAL. SQ SCH ×3 (07:51→17:28)
--- NOTE | 2020-12-06 09:01 | PDOC ---
Exam Note: Donte Note: This note is a late entry for 12/04/2020 covers elements not covered in my initial note. Subjective: The patient was seen face to face in the evening of 12/04/2020 with Iftikhar COPELAND. Discussed with nursing staff, reviewed the chart. The patient slept 3-1/2 hours previous night. She slept poorly previous night. She is compliant with medications. Remains quite obsessive, at times meds have to be given in the pudding. She was complaining of pain and received Lortab for it. Review of Systems: Positive for the pain. No CV, , pulmonary, eye, ENT system symptoms on review. Mental Status Exam: The patient is oriented to herself and situation. Speech is low in rate and rhythm, low in volume. Abstraction is fair. Computation is impaired. Language function is intact. Mood and affect remains anxious, labile. Laboratory Data: Reviewed. Valproic acid level is 78 therapeutic. Impression: Schizoaffective disorder, bipolar type, mixed with psychotic features. Anxiety disorder unspecified. Impulse control disorder unspecified. Plan: Continue psychotropics from initial note but we will start trazodone 100 mg h.s. p.r.n. insomnia. We may repeat x1. Assessment: Vital Signs/I&O: Vital Signs Date Time Temp Pulse Resp B/P (MAP) Pulse Ox O2 Delivery O2 Flow Rate FiO2 12/06/20 07:49 80 124/73 12/06/20 06:22 97.4 17 97 Room Air I & O 12/05/20 12/05/20 12/06/20 15:00 23:00 07:00 Intake Total 840 ml 480 ml 120 ml Balance 840 ml 480 ml 120 ml Labs: Laboratory Tests Test 12/05/20 11:21 12/05/20 16:06 12/05/20 19:13 12/06/20 07:33 Glucose (Fingerstick) 263 mg/dL (70-99) H 119 mg/dL (70-99) H 196 mg/dL (70-99) H 129 mg/dL (70-99) H Current Medications: Meds: Laboratory Tests Test 12/05/20 11:21 12/05/20 16:06 12/05/20 19:13 12/06/20 07:33 Glucose (Fingerstick) 263 mg/dL 119 mg/dL 196 mg/dL 129 mg/dL Current Medications Medications (Trade) Dose Ordered Sig/Leonides Route PRN Reason Start Time Stop Time Status Last Admin Dose Admin Multi-Ingredient Ointment (Analgesic [place]) 1 swathi PRN QID PRN TP MUSCLE PAIN 11/21/20 21:00 Al Hydroxide/Mg Hydroxide (Mylanta Plus Xs) 15 ml PRN AFTMEALHC PRN PO DYSPEPSIA 11/21/20 21:00 Magnesium Hydroxide (Milk Of Magnesia) 2,400 mg PRN QHS PRN PO 1ST CHOICE CONSTIPATION 11/21/20 21:00 Acetaminophen (Tylenol) 650 mg PRN Q4HRS PRN PO MILD PAIN / TEMP > 100.3'F 11/21/20 21:45 Amoxicillin/ Clavulanate Potassium (Augmentin 875/ 125mg) 1 tab BID PO 11/22/20 09:00 11/24/20 21:01 DC 11/24/20 20:55 Aspirin (Aspirin Enteric Coated) 81 mg DAILY PO 11/22/20 09:00 12/06/20 07:48 Bisacodyl (Dulcolax Tab) 5 mg PRN DAILY PRN PO 2ND CHOICE CONSTIPATION 11/21/20 21:45 Furosemide (Lasix) 40 mg DAILY PO 11/22/20 09:00 12/06/20 07:48 Acetaminophen/ Hydrocodone Bitart (Lortab 5/325) 1 tab PRN BID PRN PO mod-sev PAIN 11/21/20 21:45 12/05/20 18:58 Ibuprofen (Motrin) 200 mg PRN Q6HRS PRN PO MILD PAIN / TEMP > 100.3'F 11/21/20 21:45 Cancel Albuterol/ Ipratropium (Duoneb) 3 ml PRN BID PRN NEB SHORTNESS OF BREATH 11/21/20 21:45 Levothyroxine Sodium (Synthroid) 112 mcg DAILY06 PO 11/22/20 06:00 12/06/20 05:00 Lorazepam (Ativan) 0.5 mg TID PO 11/21/20 22:00 12/03/20 18:47 DC 12/03/20 13:59 Zolpidem Tartrate (Ambien) 5 mg HS PO 11/21/20 22:00 11/27/20 18:02 DC 11/26/20 20:44 Betamethasone Dipropion Augmented (Betamethasone Dp Aug 0.05% Cream) 1 swathi PRN BID PRN TP RASH 11/21/20 22:15 Multi-Ingred Cream/Lotion/Oil/ Oint (Hydrocerin) 1 swathi PRN BID PRN TP Dry Hands 11/21/20 22:00 Guaifenesin (Robitussin Dm) 10 ml PRN Q8HRS PRN PO COUGH 11/21/20 22:00 Insulin Human Lispro (HumaLOG) 20 units TIDWMEALS SQ 11/22/20 08:00 12/06/20 07:51 Insulin Glargine (Lantus Syringe) 30 unit BID SQ 11/21/20 22:00 12/05/20 21:11 Magnesium Chloride (Mag Delay) 64 mg DAILY PO 11/22/20 09:00 12/06/20 07:48 Non-Formulary Medication (Menthol (Biofreeze)) 1 swathi QID PRN TP MUSCLE PAIN 11/21/20 21:45 UNV Pantoprazole Sodium (Protonix) 40 mg DAILY PO 11/22/20 09:00 12/06/20 07:48 Oxybutynin Chloride (Ditropan) 5 mg DAILY PO 11/22/20 09:00 12/06/20 07:48 Polyethylene Glycol (miraLAX) 17 gm DAILY PO 11/22/20 09:00 12/06/20 07:49 Potassium Chloride (Klor-Con) 10 meq DAILY PO 11/22/20 09:00 12/06/20 07:49 Propranolol HCl (Inderal) 40 mg DAILY PO 11/22/20 09:00 12/06/20 07:49 Quetiapine Fumarate (SEROquel) 600 mg HS PO 11/21/20 22:15 12/03/20 18:47 DC 12/02/20 20:08 Saliva Substitute (Biotene Moisturizing Mouth) 2 spray PRN TID PRN PO DRY MOUTH 11/21/20 22:15 Non-Formulary Medication (Semaglutide (Ozempic)) 1 mg QFR SQ 11/23/20 16:00 UNV Pentoxifylline (TRENtal) 400 mg TIDWMEALS PO 11/22/20 08:00 12/06/20 07:48 Vitamin D (Vitamin D3) 2,000 unit DAILY PO 11/22/20 09:00 12/06/20 07:47 Lactobacillus Rhamnosus (Culturelle) 1 cap BID PO 11/22/20 09:00 12/06/20 07:48 Mirtazapine (Remeron) 7.5 mg QHS PO 11/27/20 21:00 12/05/20 21:11 Divalproex Sodium (Depakote Er) 500 mg QHS PO 11/28/20 21:00 12/01/20 17:12 DC 11/30/20 20:45 Divalproex Sodium (Depakote Er) 1,000 mg QHS PO 12/01/20 21:00 12/05/20 21:10 Bupropion HCl (Wellbutrin Xl) 150 mg DAILY PO 12/03/20 09:00 12/06/20 07:48 Quetiapine Fumarate (SEROquel) 200 mg TID PO 12/03/20 21:00 12/06/20 07:48 Clonazepam (KlonoPIN) 0.5 mg TID PO 12/03/20 21:00 12/06/20 07:49 Trazodone HCl (Desyrel) 100 mg PRN QHS PRN PO INSOMNIA, MAY REPEAT X1 12/04/20 19:15 12/04/20 23:27 I have reviewed the current psychotropics carefully including drug interactions. Risk benefit ratio favors no change other than as noted in my dictated progress note. Diagnosis: Problems: (1) Mild cognitive impairment (2) Schizoaffective disorder, bipolar type (3) Anxiety disorder, unspecified (4) Intellectual disability (5) Impulse disorder, unspecified (6) Bipolar disorder, curr episode mixed, severe, with psychotic features RAJIV VELAZQUEZ MD Dec 06, 2020 09:01
--- NOTE | 2020-12-06 09:16 | PDOC ---
Exam Note: Donte Note: This note is a late entry for 12/05/2020 covers elements not covered in my initial note. Subjective: The patient was seen face to face in the evening of 12/05/2020 with Iftikhar COPELAND. Discussed with nursing staff, reviewed the chart. The patient slept 1-1/2 hours previous night. Previous evening the patient was quite intrusive, wandering the unit. Received trazodone at 2 a.m., somewhat sedated in the morning. On rounds evening of 12/05, she was fixated on wanting something for the pain and nursing staff intervened, then she became extremely loud, aggressive verbally, labile in her mood, paranoid. Review of Systems: Positive for pain and she is wanting pain medications for this. No CV, , pulmonary, eye, ENT system symptoms on review. Mental Status Exam: The patient is reasonably oriented. Speech is coherent, somewhat low in volume, other times when agitated extremely loud, abrasive. Abstraction is fair. Computation is impaired. Attention span is short. Language function is intact. Mood and affect remains anxious, labile. No suicidal or homicidal ideation. Laboratory Data: Reviewed. Impression: Schizoaffective disorder, bipolar type, mixed with psychotic features. Anxiety disorder unspecified. Impulse control disorder unspecified. Plan: I had a lengthy discussion about drug interactions, risk-benefit ratio. She was on decent dosage of Seroquel 200 mg t.i.d., has failed this and remains on Depakote. Valproic level is therapeutic. We will give it another day and if psychotic symptoms persist, we may add Prolixin 1 mg twice a day increasing to a target dosage of 5 to 6 mg a day or change the Seroquel to Risperdal for her psychotic symptoms. We will reassess in the next day or so depending on her progress. Assessment: Vital Signs/I&O: Vital Signs Date Time Temp Pulse Resp B/P (MAP) Pulse Ox O2 Delivery O2 Flow Rate FiO2 12/06/20 07:49 80 124/73 12/06/20 06:22 97.4 17 97 Room Air I & O 12/05/20 12/05/20 12/06/20 15:00 23:00 07:00 Intake Total 840 ml 480 ml 120 ml Balance 840 ml 480 ml 120 ml Labs: Laboratory Tests Test 12/05/20 11:21 12/05/20 16:06 12/05/20 19:13 12/06/20 07:33 Glucose (Fingerstick) 263 mg/dL (70-99) H 119 mg/dL (70-99) H 196 mg/dL (70-99) H 129 mg/dL (70-99) H Current Medications: Meds: Laboratory Tests Test 12/05/20 11:21 12/05/20 16:06 12/05/20 19:13 12/06/20 07:33 Glucose (Fingerstick) 263 mg/dL 119 mg/dL 196 mg/dL 129 mg/dL Current Medications Medications (Trade) Dose Ordered Sig/Leonides Route PRN Reason Start Time Stop Time Status Last Admin Dose Admin Multi-Ingredient Ointment (Analgesic [place]) 1 swathi PRN QID PRN TP MUSCLE PAIN 11/21/20 21:00 Al Hydroxide/Mg Hydroxide (Mylanta Plus Xs) 15 ml PRN AFTMEALHC PRN PO DYSPEPSIA 11/21/20 21:00 Magnesium Hydroxide (Milk Of Magnesia) 2,400 mg PRN QHS PRN PO 1ST CHOICE CONSTIPATION 11/21/20 21:00 Acetaminophen (Tylenol) 650 mg PRN Q4HRS PRN PO MILD PAIN / TEMP > 100.3'F 11/21/20 21:45 Amoxicillin/ Clavulanate Potassium (Augmentin 875/ 125mg) 1 tab BID PO 11/22/20 09:00 11/24/20 21:01 DC 11/24/20 20:55 Aspirin (Aspirin Enteric Coated) 81 mg DAILY PO 11/22/20 09:00 12/06/20 07:48 Bisacodyl (Dulcolax Tab) 5 mg PRN DAILY PRN PO 2ND CHOICE CONSTIPATION 11/21/20 21:45 Furosemide (Lasix) 40 mg DAILY PO 11/22/20 09:00 12/06/20 07:48 Acetaminophen/ Hydrocodone Bitart (Lortab 5/325) 1 tab PRN BID PRN PO mod-sev PAIN 11/21/20 21:45 12/05/20 18:58 Ibuprofen (Motrin) 200 mg PRN Q6HRS PRN PO MILD PAIN / TEMP > 100.3'F 11/21/20 21:45 Cancel Albuterol/ Ipratropium (Duoneb) 3 ml PRN BID PRN NEB SHORTNESS OF BREATH 11/21/20 21:45 Levothyroxine Sodium (Synthroid) 112 mcg DAILY06 PO 11/22/20 06:00 12/06/20 05:00 Lorazepam (Ativan) 0.5 mg TID PO 11/21/20 22:00 12/03/20 18:47 DC 12/03/20 13:59 Zolpidem Tartrate (Ambien) 5 mg HS PO 11/21/20 22:00 11/27/20 18:02 DC 11/26/20 20:44 Betamethasone Dipropion Augmented (Betamethasone Dp Aug 0.05% Cream) 1 sawthi PRN BID PRN TP RASH 11/21/20 22:15 Multi-Ingred Cream/Lotion/Oil/ Oint (Hydrocerin) 1 swathi PRN BID PRN TP Dry Hands 11/21/20 22:00 Guaifenesin (Robitussin Dm) 10 ml PRN Q8HRS PRN PO COUGH 11/21/20 22:00 Insulin Human Lispro (HumaLOG) 20 units TIDWMEALS SQ 11/22/20 08:00 12/06/20 07:51 Insulin Glargine (Lantus Syringe) 30 unit BID SQ 11/21/20 22:00 12/05/20 21:11 Magnesium Chloride (Mag Delay) 64 mg DAILY PO 11/22/20 09:00 12/06/20 07:48 Non-Formulary Medication (Menthol (Biofreeze)) 1 swathi QID PRN TP MUSCLE PAIN 11/21/20 21:45 UNV Pantoprazole Sodium (Protonix) 40 mg DAILY PO 11/22/20 09:00 12/06/20 07:48 Oxybutynin Chloride (Ditropan) 5 mg DAILY PO 11/22/20 09:00 12/06/20 07:48 Polyethylene Glycol (miraLAX) 17 gm DAILY PO 11/22/20 09:00 12/06/20 07:49 Potassium Chloride (Klor-Con) 10 meq DAILY PO 11/22/20 09:00 12/06/20 07:49 Propranolol HCl (Inderal) 40 mg DAILY PO 11/22/20 09:00 12/06/20 07:49 Quetiapine Fumarate (SEROquel) 600 mg HS PO 11/21/20 22:15 12/03/20 18:47 DC 12/02/20 20:08 Saliva Substitute (Biotene Moisturizing Mouth) 2 spray PRN TID PRN PO DRY MOUTH 11/21/20 22:15 Non-Formulary Medication (Semaglutide (Ozempic)) 1 mg QFR SQ 11/23/20 16:00 UNV Pentoxifylline (TRENtal) 400 mg TIDWMEALS PO 11/22/20 08:00 12/06/20 07:48 Vitamin D (Vitamin D3) 2,000 unit DAILY PO 11/22/20 09:00 12/06/20 07:47 Lactobacillus Rhamnosus (Culturelle) 1 cap BID PO 11/22/20 09:00 12/06/20 07:48 Mirtazapine (Remeron) 7.5 mg QHS PO 11/27/20 21:00 12/05/20 21:11 Divalproex Sodium (Depakote Er) 500 mg QHS PO 11/28/20 21:00 12/01/20 17:12 DC 11/30/20 20:45 Divalproex Sodium (Depakote Er) 1,000 mg QHS PO 12/01/20 21:00 12/05/20 21:10 Bupropion HCl (Wellbutrin Xl) 150 mg DAILY PO 12/03/20 09:00 12/06/20 07:48 Quetiapine Fumarate (SEROquel) 200 mg TID PO 12/03/20 21:00 12/06/20 07:48 Clonazepam (KlonoPIN) 0.5 mg TID PO 12/03/20 21:00 12/06/20 07:49 Trazodone HCl (Desyrel) 100 mg PRN QHS PRN PO INSOMNIA, MAY REPEAT X1 12/04/20 19:15 12/04/20 23:27 I have reviewed the current psychotropics carefully including drug interactions. Risk benefit ratio favors no change other than as noted in my dictated progress note. Diagnosis: Problems: (1) Mild cognitive impairment (2) Schizoaffective disorder, bipolar type (3) Anxiety disorder, unspecified (4) Intellectual disability (5) Impulse disorder, unspecified (6) Bipolar disorder, curr episode mixed, severe, with psychotic features RAJIV VELAZQUEZ MD Dec 06, 2020 09:16
[2020-12-06] MEDS: INSULIN GLARGINE SYRINGE. SQ SCH ×2 (10:19→20:07)
[2020-12-06] MEDS: risperiDONE 0.5 MG TABLET. PO SCH ×3 (12:41→17:26)
[2020-12-06] MEDS: HYDROcodone/APAP 5/325MG 1 TAB TABLET PO PRN ×2 (12:48→18:01)
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
[2020-12-06 15:39] VITALS: BP 119/78
[2020-12-06] MEDS: MIRTAZAPINE 7.5 MG TABLET. PO SCH (20:06)
[2020-12-06] MEDS: DIVALPROEX ER 500 MG TAB.ER.24H PO SCH (20:06)
[2020-12-06] MEDS: traZODone 100 MG TABLET. PO PRN ×2 (20:07→22:18)
--- NOTE | 2020-12-06 21:07 | PDOC ---
Exam Note: Donte Note: Please also refer to the separate dictated note~for this date of service dictated separately.~Patient seen individually. Discussed the patient with Nursing staff reviewed the chart.~Reviewed interim history and current functioning. Reviewed vital signs,~Labs/ Radiology~and current medications noted below. Continue current treatment with the changes noted in the dictated addendum note Assessment: Vital Signs/I&O: Vital Signs Date Time Temp Pulse Resp B/P (MAP) Pulse Ox O2 Delivery O2 Flow Rate FiO2 12/06/20 18:01 16 98 Room Air 12/06/20 15:39 98.0 80 119/78 (92) I & O 12/05/20 12/05/20 12/06/20 15:00 23:00 07:00 Intake Total 840 ml 480 ml 120 ml Balance 840 ml 480 ml 120 ml Labs: Laboratory Tests Test 12/06/20 05:05 12/06/20 07:33 12/06/20 11:34 12/06/20 17:05 Coronavirus (PCR) Not detected (Not Detected) Glucose (Fingerstick) 129 mg/dL (70-99) H 167 mg/dL (70-99) H 128 mg/dL (70-99) H Test 12/06/20 19:10 Glucose (Fingerstick) 192 mg/dL (70-99) H Current Medications: Meds: Laboratory Tests Test 12/06/20 05:05 12/06/20 07:33 12/06/20 11:34 12/06/20 17:05 Coronavirus (PCR) Not detected Glucose (Fingerstick) 129 mg/dL 167 mg/dL 128 mg/dL Test 12/06/20 19:10 Glucose (Fingerstick) 192 mg/dL Current Medications Medications (Trade) Dose Ordered Sig/Leonides Route PRN Reason Start Time Stop Time Status Last Admin Dose Admin Multi-Ingredient Ointment (Analgesic [place]) 1 swathi PRN QID PRN TP MUSCLE PAIN 11/21/20 21:00 Al Hydroxide/Mg Hydroxide (Mylanta Plus Xs) 15 ml PRN AFTMEALHC PRN PO DYSPEPSIA 11/21/20 21:00 Magnesium Hydroxide (Milk Of Magnesia) 2,400 mg PRN QHS PRN PO 1ST CHOICE CONSTIPATION 11/21/20 21:00 Acetaminophen (Tylenol) 650 mg PRN Q4HRS PRN PO MILD PAIN / TEMP > 100.3'F 11/21/20 21:45 Amoxicillin/ Clavulanate Potassium (Augmentin 875/ 125mg) 1 tab BID PO 11/22/20 09:00 11/24/20 21:01 DC 11/24/20 20:55 Aspirin (Aspirin Enteric Coated) 81 mg DAILY PO 11/22/20 09:00 12/06/20 07:48 Bisacodyl (Dulcolax Tab) 5 mg PRN DAILY PRN PO 2ND CHOICE CONSTIPATION 11/21/20 21:45 Furosemide (Lasix) 40 mg DAILY PO 11/22/20 09:00 12/06/20 07:48 Acetaminophen/ Hydrocodone Bitart (Lortab 5/325) 1 tab PRN BID PRN PO mod-sev PAIN 11/21/20 21:45 12/06/20 18:01 Ibuprofen (Motrin) 200 mg PRN Q6HRS PRN PO MILD PAIN / TEMP > 100.3'F 11/21/20 21:45 Cancel Albuterol/ Ipratropium (Duoneb) 3 ml PRN BID PRN NEB SHORTNESS OF BREATH 11/21/20 21:45 Levothyroxine Sodium (Synthroid) 112 mcg DAILY06 PO 11/22/20 06:00 12/06/20 05:00 Lorazepam (Ativan) 0.5 mg TID PO 11/21/20 22:00 12/03/20 18:47 DC 12/03/20 13:59 Zolpidem Tartrate (Ambien) 5 mg HS PO 11/21/20 22:00 11/27/20 18:02 DC 11/26/20 20:44 Betamethasone Dipropion Augmented (Betamethasone Dp Aug 0.05% Cream) 1 swathi PRN BID PRN TP RASH 11/21/20 22:15 Multi-Ingred Cream/Lotion/Oil/ Oint (Hydrocerin) 1 swathi PRN BID PRN TP Dry Hands 11/21/20 22:00 Guaifenesin (Robitussin Dm) 10 ml PRN Q8HRS PRN PO COUGH 11/21/20 22:00 Insulin Human Lispro (HumaLOG) 20 units TIDWMEALS SQ 11/22/20 08:00 12/06/20 17:28 Insulin Glargine (Lantus Syringe) 30 unit BID SQ 11/21/20 22:00 12/06/20 20:07 Magnesium Chloride (Mag Delay) 64 mg DAILY PO 11/22/20 09:00 12/06/20 07:48 Non-Formulary Medication (Menthol (Biofreeze)) 1 swathi QID PRN TP MUSCLE PAIN 11/21/20 21:45 UNV Pantoprazole Sodium (Protonix) 40 mg DAILY PO 11/22/20 09:00 12/06/20 07:48 Oxybutynin Chloride (Ditropan) 5 mg DAILY PO 11/22/20 09:00 12/06/20 07:48 Polyethylene Glycol (miraLAX) 17 gm DAILY PO 11/22/20 09:00 12/06/20 07:49 Potassium Chloride (Klor-Con) 10 meq DAILY PO 11/22/20 09:00 12/06/20 07:49 Propranolol HCl (Inderal) 40 mg DAILY PO 11/22/20 09:00 12/06/20 07:49 Quetiapine Fumarate (SEROquel) 600 mg HS PO 11/21/20 22:15 12/03/20 18:47 DC 12/02/20 20:08 Saliva Substitute (Biotene Moisturizing Mouth) 2 spray PRN TID PRN PO DRY MOUTH 11/21/20 22:15 Non-Formulary Medication (Semaglutide (Ozempic)) 1 mg QFR SQ 11/23/20 16:00 UNV Pentoxifylline (TRENtal) 400 mg TIDWMEALS PO 11/22/20 08:00 12/06/20 17:26 Vitamin D (Vitamin D3) 2,000 unit DAILY PO 11/22/20 09:00 12/06/20 07:47 Lactobacillus Rhamnosus (Culturelle) 1 cap BID PO 11/22/20 09:00 12/06/20 20:06 Mirtazapine (Remeron) 7.5 mg QHS PO 11/27/20 21:00 12/06/20 20:06 Divalproex Sodium (Depakote Er) 500 mg QHS PO 11/28/20 21:00 12/01/20 17:12 DC 11/30/20 20:45 Divalproex Sodium (Depakote Er) 1,000 mg QHS PO 12/01/20 21:00 12/06/20 20:06 Bupropion HCl (Wellbutrin Xl) 150 mg DAILY PO 12/03/20 09:00 12/06/20 07:48 Quetiapine Fumarate (SEROquel) 200 mg TID PO 12/03/20 21:00 12/06/20 11:47 DC 12/06/20 07:48 Clonazepam (KlonoPIN) 0.5 mg TID PO 12/03/20 21:00 12/06/20 20:07 Trazodone HCl (Desyrel) 100 mg PRN QHS PRN PO INSOMNIA, MAY REPEAT X1 12/04/20 19:15 12/06/20 20:07 Risperidone (RisperDAL) 0.5 mg 0900,1300,1700 PO 12/06/20 13:00 12/06/20 17:26 Current Medications Medications (Trade) Dose Ordered Sig/Leonides Route PRN Reason Start Time Stop Time Status Last Admin Dose Admin Risperidone (RisperDAL) 0.5 mg 0900,1300,1700 PO 12/06/20 13:00 12/06/20 17:26 I have reviewed the current psychotropics carefully including drug interactions. Risk benefit ratio favors no change other than as noted in my dictated progress note. Diagnosis: Problems: (1) Mild cognitive impairment (2) Schizoaffective disorder, bipolar type (3) Anxiety disorder, unspecified (4) Intellectual disability (5) Impulse disorder, unspecified (6) Bipolar disorder, curr episode mixed, severe, with psychotic features RAJIV VELAZQUEZ MD Dec 06, 2020 21:07
[2020-12-07] MEDS: LEVOTHYROXINE 112 MCG TABLET PO SCH (05:19)
[2020-12-07] MEDS: HYDROcodone/APAP 5/325MG 1 TAB TABLET PO PRN ×2 (06:12→20:46)
[2020-12-07 06:17] VITALS: BP 140/87
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
[2020-12-07] MEDS: INSULIN LISPRO 300 UNITS/3 ML VIAL. SQ SCH ×3 (08:00→17:00)
[2020-12-07] MEDS: FUROSEMIDE 40 MG TABLET PO SCH (08:58)
[2020-12-07] MEDS: MAGNESIUM CHLORIDE ER 64 MG TABLET.ER PO SCH (08:58)
[2020-12-07] MEDS: PENTOXIFYLLINE ER 400 MG TABLET.ER. PO SCH ×3 (08:59→17:00)
[2020-12-07] MEDS: POTASSIUM CHLORIDE 10 MEQ TABLET.ER. PO SCH (08:59)
[2020-12-07] MEDS: PANTOPRAZOLE 40 MG TABLET. PO SCH (08:59)
[2020-12-07] MEDS: ASPIRIN ENTERIC COATED 81 MG TABLET.DR. PO SCH (08:59)
[2020-12-07] MEDS: LACTOBACILLUS RHAMNOSUS GG 1 CAPSULE. PO SCH ×2 (08:59→20:28)
[2020-12-07] MEDS: PROPRANOLOL 20 MG TABLET. PO SCH (08:59)
[2020-12-07] MEDS: CHOLECALCIFEROL (VITAMIN D3) 1,000 UNIT TABLET PO SCH (08:59)
[2020-12-07] MEDS: buPROPion XL 150 MG TAB.ER.24H PO SCH (08:59)
[2020-12-07] MEDS: POLYETHYLENE GLYCOL 3350 17 GM PACKET. PO SCH (09:00)
[2020-12-07] MEDS: OXYBUTYNIN CHLORIDE 5 MG TABLET PO SCH (09:00)
[2020-12-07] MEDS: INSULIN GLARGINE SYRINGE. SQ SCH ×2 (09:00→20:32)
[2020-12-07] MEDS: risperiDONE 0.5 MG TABLET. PO SCH ×2 (09:00→13:00)
[2020-12-07] MEDS: clonazePAM 0.5 MG TABLET PO SCH ×3 (09:00→20:29)
[2020-12-07] MEDS: NON FORMULARY ITEM (Semaglutide (Ozempic) 1 MG) SQ SCH (16:00)
[2020-12-07 16:18] VITALS: BP 126/84
[2020-12-07] MEDS: MIRTAZAPINE 7.5 MG TABLET. PO SCH (20:28)
[2020-12-07] MEDS: traZODone 100 MG TABLET. PO PRN (20:29)
[2020-12-07] MEDS: DIVALPROEX ER 500 MG TAB.ER.24H PO SCH (20:29)
[2020-12-07] MEDS: risperiDONE ORAL 1 MG/ML 30ml BOTTLE. PO SCH (20:30)
--- NOTE | 2020-12-07 21:09 | PDOC ---
Exam Note: Donte Note: Please also refer to the separate dictated note~for this date of service dictated separately.~Patient seen individually. Discussed the patient with Nursing staff reviewed the chart.~Reviewed interim history and current functioning. Reviewed vital signs,~Labs/ Radiology~and current medications noted below. Continue current treatment with the changes noted in the dictated addendum note Assessment: Vital Signs/I&O: Vital Signs Date Time Temp Pulse Resp B/P (MAP) Pulse Ox O2 Delivery O2 Flow Rate FiO2 12/07/20 20:46 96 12/07/20 16:18 97.6 89 20 126/84 (98) Room Air I & O 12/06/20 12/06/20 12/07/20 15:00 23:00 07:00 Intake Total 900 ml 480 ml Balance 900 ml 480 ml Labs: Laboratory Tests Test 12/07/20 07:42 12/07/20 11:37 12/07/20 19:07 Glucose (Fingerstick) 99 mg/dL (70-99) 105 mg/dL (70-99) H 165 mg/dL (70-99) H Current Medications: Meds: Laboratory Tests Test 12/07/20 07:42 12/07/20 11:37 12/07/20 19:07 Glucose (Fingerstick) 99 mg/dL 105 mg/dL 165 mg/dL Current Medications Medications (Trade) Dose Ordered Sig/Leonides Route PRN Reason Start Time Stop Time Status Last Admin Dose Admin Multi-Ingredient Ointment (Analgesic [place]) 1 swathi PRN QID PRN TP MUSCLE PAIN 11/21/20 21:00 Al Hydroxide/Mg Hydroxide (Mylanta Plus Xs) 15 ml PRN AFTMEALHC PRN PO DYSPEPSIA 11/21/20 21:00 Magnesium Hydroxide (Milk Of Magnesia) 2,400 mg PRN QHS PRN PO 1ST CHOICE CONSTIPATION 11/21/20 21:00 Acetaminophen (Tylenol) 650 mg PRN Q4HRS PRN PO MILD PAIN / TEMP > 100.3'F 11/21/20 21:45 12/06/20 22:17 Amoxicillin/ Clavulanate Potassium (Augmentin 875/ 125mg) 1 tab BID PO 11/22/20 09:00 11/24/20 21:01 DC 11/24/20 20:55 Aspirin (Aspirin Enteric Coated) 81 mg DAILY PO 11/22/20 09:00 12/07/20 08:59 Bisacodyl (Dulcolax Tab) 5 mg PRN DAILY PRN PO 2ND CHOICE CONSTIPATION 11/21/20 21:45 Furosemide (Lasix) 40 mg DAILY PO 11/22/20 09:00 12/07/20 08:58 Acetaminophen/ Hydrocodone Bitart (Lortab 5/325) 1 tab PRN BID PRN PO mod-sev PAIN 11/21/20 21:45 12/07/20 20:46 Ibuprofen (Motrin) 200 mg PRN Q6HRS PRN PO MILD PAIN / TEMP > 100.3'F 11/21/20 21:45 Cancel Albuterol/ Ipratropium (Duoneb) 3 ml PRN BID PRN NEB SHORTNESS OF BREATH 11/21/20 21:45 Levothyroxine Sodium (Synthroid) 112 mcg DAILY06 PO 11/22/20 06:00 12/07/20 05:19 Lorazepam (Ativan) 0.5 mg TID PO 11/21/20 22:00 12/03/20 18:47 DC 12/03/20 13:59 Zolpidem Tartrate (Ambien) 5 mg HS PO 11/21/20 22:00 11/27/20 18:02 DC 11/26/20 20:44 Betamethasone Dipropion Augmented (Betamethasone Dp Aug 0.05% Cream) 1 swathi PRN BID PRN TP RASH 11/21/20 22:15 Multi-Ingred Cream/Lotion/Oil/ Oint (Hydrocerin) 1 swathi PRN BID PRN TP Dry Hands 11/21/20 22:00 Guaifenesin (Robitussin Dm) 10 ml PRN Q8HRS PRN PO COUGH 11/21/20 22:00 Insulin Human Lispro (HumaLOG) 20 units TIDWMEALS SQ 11/22/20 08:00 12/07/20 17:00 Insulin Glargine (Lantus Syringe) 30 unit BID SQ 11/21/20 22:00 12/07/20 20:32 Magnesium Chloride (Mag Delay) 64 mg DAILY PO 11/22/20 09:00 12/07/20 08:58 Non-Formulary Medication (Menthol (Biofreeze)) 1 swathi QID PRN TP MUSCLE PAIN 11/21/20 21:45 UNV Pantoprazole Sodium (Protonix) 40 mg DAILY PO 11/22/20 09:00 12/07/20 08:59 Oxybutynin Chloride (Ditropan) 5 mg DAILY PO 11/22/20 09:00 12/07/20 09:00 Polyethylene Glycol (miraLAX) 17 gm DAILY PO 11/22/20 09:00 12/07/20 09:00 Potassium Chloride (Klor-Con) 10 meq DAILY PO 11/22/20 09:00 12/07/20 08:59 Propranolol HCl (Inderal) 40 mg DAILY PO 11/22/20 09:00 12/07/20 08:59 Quetiapine Fumarate (SEROquel) 600 mg HS PO 11/21/20 22:15 12/03/20 18:47 DC 12/02/20 20:08 Saliva Substitute (Biotene Moisturizing Mouth) 2 spray PRN TID PRN PO DRY MOUTH 11/21/20 22:15 Non-Formulary Medication (Semaglutide (Ozempic)) 1 mg QFR SQ 11/23/20 16:00 UNV Pentoxifylline (TRENtal) 400 mg TIDWMEALS PO 11/22/20 08:00 12/07/20 17:00 Vitamin D (Vitamin D3) 2,000 unit DAILY PO 11/22/20 09:00 12/07/20 08:59 Lactobacillus Rhamnosus (Culturelle) 1 cap BID PO 11/22/20 09:00 12/07/20 20:28 Mirtazapine (Remeron) 7.5 mg QHS PO 11/27/20 21:00 12/07/20 20:28 Divalproex Sodium (Depakote Er) 500 mg QHS PO 11/28/20 21:00 12/01/20 17:12 DC 11/30/20 20:45 Divalproex Sodium (Depakote Er) 1,000 mg QHS PO 12/01/20 21:00 12/07/20 20:29 Bupropion HCl (Wellbutrin Xl) 150 mg DAILY PO 12/03/20 09:00 12/07/20 08:59 Quetiapine Fumarate (SEROquel) 200 mg TID PO 12/03/20 21:00 12/06/20 11:47 DC 12/06/20 07:48 Clonazepam (KlonoPIN) 0.5 mg TID PO 12/03/20 21:00 12/07/20 20:29 Trazodone HCl (Desyrel) 100 mg PRN QHS PRN PO INSOMNIA, MAY REPEAT X1 12/04/20 19:15 12/07/20 20:29 Risperidone (RisperDAL) 0.5 mg 0900,1300,1700 PO 12/06/20 13:00 12/07/20 17:12 DC 12/07/20 09:00 Risperidone (RisperDAL) 1.5 mg DAILY PO 12/08/20 09:00 12/07/20 19:50 DC Risperidone (RisperDAL) 1.5 mg DAILY PO 12/07/20 20:00 12/07/20 20:30 Current Medications Medications (Trade) Dose Ordered Sig/Leonides Route PRN Reason Start Time Stop Time Status Last Admin Dose Admin Risperidone (RisperDAL) 1.5 mg DAILY PO 12/07/20 20:00 12/07/20 20:30 I have reviewed the current psychotropics carefully including drug interactions. Risk benefit ratio favors no change other than as noted in my dictated progress note. Diagnosis: Problems: (1) Mild cognitive impairment (2) Schizoaffective disorder, bipolar type (3) Anxiety disorder, unspecified (4) Intellectual disability (5) Impulse disorder, unspecified (6) Bipolar disorder, curr episode mixed, severe, with psychotic features RAJIV VELAZQUEZ MD Dec 07, 2020 21:09
[2020-12-08] MEDS: LEVOTHYROXINE 112 MCG TABLET PO SCH (05:16)
[2020-12-08 06:05] VITALS: BP 124/74
[2020-12-08] MEDS: POLYETHYLENE GLYCOL 3350 17 GM PACKET. PO SCH (08:29)
[2020-12-08] MEDS: INSULIN GLARGINE SYRINGE. SQ SCH ×2 (08:29→20:32)
[2020-12-08] MEDS: CHOLECALCIFEROL (VITAMIN D3) 1,000 UNIT TABLET PO SCH (08:30)
[2020-12-08] MEDS: PANTOPRAZOLE 40 MG TABLET. PO SCH (08:30)
[2020-12-08] MEDS: OXYBUTYNIN CHLORIDE 5 MG TABLET PO SCH (08:30)
[2020-12-08] MEDS: PROPRANOLOL 20 MG TABLET. PO SCH (08:30)
[2020-12-08] MEDS: ASPIRIN ENTERIC COATED 81 MG TABLET.DR. PO SCH (08:30)
[2020-12-08] MEDS: FUROSEMIDE 40 MG TABLET PO SCH (08:30)
[2020-12-08] MEDS: LACTOBACILLUS RHAMNOSUS GG 1 CAPSULE. PO SCH ×2 (08:30→20:30)
[2020-12-08] MEDS: POTASSIUM CHLORIDE 10 MEQ TABLET.ER. PO SCH (08:30)
[2020-12-08] MEDS: buPROPion XL 150 MG TAB.ER.24H PO SCH (08:31)
[2020-12-08] MEDS: INSULIN LISPRO 300 UNITS/3 ML VIAL. SQ SCH ×3 (08:31→17:05)
[2020-12-08] MEDS: clonazePAM 0.5 MG TABLET PO SCH ×3 (08:31→20:34)
[2020-12-08] MEDS: PENTOXIFYLLINE ER 400 MG TABLET.ER. PO SCH ×3 (08:31→17:06)
[2020-12-08] MEDS: MAGNESIUM CHLORIDE ER 64 MG TABLET.ER PO SCH (08:31)
[2020-12-08] MEDS: risperiDONE ORAL 1 MG/ML 30ml BOTTLE. PO SCH (08:37)
[2020-12-08] MEDS ORDERED: risperiDONE ORAL 1 MG/ML 30ml BOTTLE. PO SCH (09:00)
[2020-12-08] MEDS: HYDROcodone/APAP 5/325MG 1 TAB TABLET PO PRN ×2 (09:20→17:06)
[2020-12-08 15:00] VITALS: BP 118/78
[2020-12-08] MEDS: traZODone 100 MG TABLET. PO PRN (20:30)
[2020-12-08] MEDS: MIRTAZAPINE 7.5 MG TABLET. PO SCH (20:30)
[2020-12-08] MEDS: DIVALPROEX ER 500 MG TAB.ER.24H PO SCH (20:30)
--- NOTE | 2020-12-08 20:59 | PDOC ---
Exam Note: Donte Note: Please also refer to the separate dictated note~for this date of service dictated separately.~Patient seen individually. Discussed the patient with Nursing staff reviewed the chart.~Reviewed interim history and current functioning. Reviewed vital signs,~Labs/ Radiology~and current medications noted below. Continue current treatment with the changes noted in the dictated addendum note Assessment: Vital Signs/I&O: Vital Signs Date Time Temp Pulse Resp B/P (MAP) Pulse Ox O2 Delivery O2 Flow Rate FiO2 12/08/20 19:00 98 12/08/20 17:06 20 12/08/20 15:00 98.0 74 118/78 (91) Room Air I & O 12/07/20 12/07/20 12/08/20 15:00 23:00 07:00 Intake Total 720 ml 600 ml Balance 720 ml 600 ml Labs: Laboratory Tests Test 12/08/20 07:48 12/08/20 16:54 12/08/20 19:06 Glucose (Fingerstick) 154 mg/dL (70-99) H 127 mg/dL (70-99) H 214 mg/dL (70-99) H Current Medications: Meds: Laboratory Tests Test 12/08/20 07:48 12/08/20 16:54 12/08/20 19:06 Glucose (Fingerstick) 154 mg/dL 127 mg/dL 214 mg/dL Current Medications Medications (Trade) Dose Ordered Sig/Leonides Route PRN Reason Start Time Stop Time Status Last Admin Dose Admin Multi-Ingredient Ointment (Analgesic [place]) 1 swathi PRN QID PRN TP MUSCLE PAIN 11/21/20 21:00 Al Hydroxide/Mg Hydroxide (Mylanta Plus Xs) 15 ml PRN AFTMEALHC PRN PO DYSPEPSIA 11/21/20 21:00 Magnesium Hydroxide (Milk Of Magnesia) 2,400 mg PRN QHS PRN PO 1ST CHOICE CONSTIPATION 11/21/20 21:00 Acetaminophen (Tylenol) 650 mg PRN Q4HRS PRN PO MILD PAIN / TEMP > 100.3'F 11/21/20 21:45 12/06/20 22:17 Amoxicillin/ Clavulanate Potassium (Augmentin 875/ 125mg) 1 tab BID PO 11/22/20 09:00 11/24/20 21:01 DC 11/24/20 20:55 Aspirin (Aspirin Enteric Coated) 81 mg DAILY PO 11/22/20 09:00 12/08/20 08:30 Bisacodyl (Dulcolax Tab) 5 mg PRN DAILY PRN PO 2ND CHOICE CONSTIPATION 11/21/20 21:45 Furosemide (Lasix) 40 mg DAILY PO 11/22/20 09:00 12/08/20 08:30 Acetaminophen/ Hydrocodone Bitart (Lortab 5/325) 1 tab PRN BID PRN PO mod-sev PAIN 11/21/20 21:45 12/08/20 17:03 DC 12/08/20 09:20 Ibuprofen (Motrin) 200 mg PRN Q6HRS PRN PO MILD PAIN / TEMP > 100.3'F 11/21/20 21:45 Cancel Albuterol/ Ipratropium (Duoneb) 3 ml PRN BID PRN NEB SHORTNESS OF BREATH 11/21/20 21:45 Levothyroxine Sodium (Synthroid) 112 mcg DAILY06 PO 11/22/20 06:00 12/08/20 05:16 Lorazepam (Ativan) 0.5 mg TID PO 11/21/20 22:00 12/03/20 18:47 DC 12/03/20 13:59 Zolpidem Tartrate (Ambien) 5 mg HS PO 11/21/20 22:00 11/27/20 18:02 DC 11/26/20 20:44 Betamethasone Dipropion Augmented (Betamethasone Dp Aug 0.05% Cream) 1 swathi PRN BID PRN TP RASH 11/21/20 22:15 Multi-Ingred Cream/Lotion/Oil/ Oint (Hydrocerin) 1 swathi PRN BID PRN TP Dry Hands 11/21/20 22:00 Guaifenesin (Robitussin Dm) 10 ml PRN Q8HRS PRN PO COUGH 11/21/20 22:00 Insulin Human Lispro (HumaLOG) 20 units TIDWMEALS SQ 11/22/20 08:00 12/08/20 17:05 Insulin Glargine (Lantus Syringe) 30 unit BID SQ 11/21/20 22:00 12/08/20 20:32 Magnesium Chloride (Mag Delay) 64 mg DAILY PO 11/22/20 09:00 12/08/20 08:31 Non-Formulary Medication (Menthol (Biofreeze)) 1 swathi QID PRN TP MUSCLE PAIN 11/21/20 21:45 UNV Pantoprazole Sodium (Protonix) 40 mg DAILY PO 11/22/20 09:00 12/08/20 08:30 Oxybutynin Chloride (Ditropan) 5 mg DAILY PO 11/22/20 09:00 12/08/20 08:30 Polyethylene Glycol (miraLAX) 17 gm DAILY PO 11/22/20 09:00 12/08/20 08:29 Potassium Chloride (Klor-Con) 10 meq DAILY PO 11/22/20 09:00 12/08/20 08:30 Propranolol HCl (Inderal) 40 mg DAILY PO 11/22/20 09:00 12/08/20 08:30 Quetiapine Fumarate (SEROquel) 600 mg HS PO 11/21/20 22:15 12/03/20 18:47 DC 12/02/20 20:08 Saliva Substitute (Biotene Moisturizing Mouth) 2 spray PRN TID PRN PO DRY MOUTH 11/21/20 22:15 Non-Formulary Medication (Semaglutide (Ozempic)) 1 mg QFR SQ 11/23/20 16:00 UNV Pentoxifylline (TRENtal) 400 mg TIDWMEALS PO 11/22/20 08:00 12/08/20 17:06 Vitamin D (Vitamin D3) 2,000 unit DAILY PO 11/22/20 09:00 12/08/20 08:30 Lactobacillus Rhamnosus (Culturelle) 1 cap BID PO 11/22/20 09:00 12/08/20 20:30 Mirtazapine (Remeron) 7.5 mg QHS PO 11/27/20 21:00 12/08/20 20:30 Divalproex Sodium (Depakote Er) 500 mg QHS PO 11/28/20 21:00 12/01/20 17:12 DC 11/30/20 20:45 Divalproex Sodium (Depakote Er) 1,000 mg QHS PO 12/01/20 21:00 12/08/20 20:30 Bupropion HCl (Wellbutrin Xl) 150 mg DAILY PO 12/03/20 09:00 12/08/20 08:31 Quetiapine Fumarate (SEROquel) 200 mg TID PO 12/03/20 21:00 12/06/20 11:47 DC 12/06/20 07:48 Clonazepam (KlonoPIN) 0.5 mg TID PO 12/03/20 21:00 12/08/20 20:34 Trazodone HCl (Desyrel) 100 mg PRN QHS PRN PO INSOMNIA, MAY REPEAT X1 12/04/20 19:15 12/08/20 20:30 Risperidone (RisperDAL) 0.5 mg 0900,1300,1700 PO 12/06/20 13:00 12/07/20 17:12 DC 12/07/20 09:00 Risperidone (RisperDAL) 1.5 mg DAILY PO 12/08/20 09:00 12/07/20 19:50 DC Risperidone (RisperDAL) 1.5 mg DAILY PO 12/07/20 20:00 12/08/20 08:37 Acetaminophen/ Hydrocodone Bitart (Lortab 5/325) 1 tab PRN TID PRN PO mod-sev PAIN 12/08/20 17:00 12/08/20 17:06 Current Medications Medications (Trade) Dose Ordered Sig/Leonides Route PRN Reason Start Time Stop Time Status Last Admin Dose Admin Acetaminophen/ Hydrocodone Bitart (Lortab 5/325) 1 tab PRN TID PRN PO mod-sev PAIN 12/08/20 17:00 12/08/20 17:06 I have reviewed the current psychotropics carefully including drug interactions. Risk benefit ratio favors no change other than as noted in my dictated progress note. Diagnosis: Problems: (1) Mild cognitive impairment (2) Schizoaffective disorder, bipolar type (3) Anxiety disorder, unspecified (4) Intellectual disability (5) Impulse disorder, unspecified (6) Bipolar disorder, curr episode mixed, severe, with psychotic features RAJIV VELAZQUEZ MD Dec 08, 2020 20:59
[2020-12-09] MEDS: HYDROcodone/APAP 5/325MG 1 TAB TABLET PO PRN ×3 (02:20→22:59)
[2020-12-09] MEDS: LEVOTHYROXINE 112 MCG TABLET PO SCH (05:26)
[2020-12-09 06:27] VITALS: BP 126/83
[2020-12-09] MEDS: INSULIN LISPRO 300 UNITS/3 ML VIAL. SQ SCH ×3 (08:00→17:00)
[2020-12-09] MEDS: FUROSEMIDE 40 MG TABLET PO SCH (08:13)
[2020-12-09] MEDS: POTASSIUM CHLORIDE 10 MEQ TABLET.ER. PO SCH (08:13)
[2020-12-09] MEDS: PENTOXIFYLLINE ER 400 MG TABLET.ER. PO SCH ×3 (08:13→17:06)
[2020-12-09] MEDS: PANTOPRAZOLE 40 MG TABLET. PO SCH (08:13)
[2020-12-09] MEDS: ASPIRIN ENTERIC COATED 81 MG TABLET.DR. PO SCH (08:13)
[2020-12-09] MEDS: OXYBUTYNIN CHLORIDE 5 MG TABLET PO SCH (08:13)
[2020-12-09] MEDS: buPROPion XL 150 MG TAB.ER.24H PO SCH (08:14)
[2020-12-09] MEDS: LACTOBACILLUS RHAMNOSUS GG 1 CAPSULE. PO SCH ×2 (08:14→20:45)
[2020-12-09] MEDS: clonazePAM 0.5 MG TABLET PO SCH ×3 (08:14→20:45)
[2020-12-09] MEDS: PROPRANOLOL 20 MG TABLET. PO SCH (08:14)
[2020-12-09] MEDS: POLYETHYLENE GLYCOL 3350 17 GM PACKET. PO SCH (08:15)
[2020-12-09] MEDS: MAGNESIUM CHLORIDE ER 64 MG TABLET.ER PO SCH (08:15)
[2020-12-09] MEDS: CHOLECALCIFEROL (VITAMIN D3) 1,000 UNIT TABLET PO SCH (08:15)
[2020-12-09] MEDS: risperiDONE ORAL 1 MG/ML 30ml BOTTLE. PO SCH (08:16)
[2020-12-09] MEDS: INSULIN GLARGINE SYRINGE. SQ SCH ×2 (08:20→20:44)
[2020-12-09 16:34] VITALS: BP 119/76
[2020-12-09] MEDS: DIVALPROEX ER 500 MG TAB.ER.24H PO SCH (20:46)
[2020-12-09] MEDS: MIRTAZAPINE 7.5 MG TABLET. PO SCH (20:46)
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
--- NOTE | 2020-12-09 21:28 | PDOC ---
Exam Note: Donte Note: This note is a late entry for 12/08/2020 covers elements not covered in my initial note. Subjective: The patient was seen face to face in the evening of 12/08/2020 with Starla COPELAND. Discussed with nursing staff, reviewed the chart. The patient slept 4 hours previous night. He is compliant with medications, somewhat flat in her affect, withdrawn, wants increase in her pain meds. We will defer to Dr. Daniels. Lortab was increased to t.i.d. I met with her in her room. Review of Systems: No CV, , pulmonary, eye, ENT system symptoms on review. Mental Status Exam: The patient is somewhat withdrawn, oriented to herself and situation. Speech has some latency. Often response is monosyllabic. Abstraction is fair. Computation is impaired. Language function is intact. Mood and affect, labile, anxious, less so that before. Laboratory Data: Reviewed. Impression: Schizoaffective disorder, bipolar type, mixed with psychotic features. Anxiety disorder unspecified. Impulse control disorder unspecified. Plan: No change from initial note. We may need to increase Risperdal further but adequate for now. Assessment: Vital Signs/I&O: Vital Signs Date Time Temp Pulse Resp B/P (MAP) Pulse Ox O2 Delivery O2 Flow Rate FiO2 12/09/20 16:34 97.6 77 16 119/76 (90) 96 12/09/20 13:29 Room Air I & O 12/08/20 12/08/20 12/09/20 15:00 23:00 07:00 Intake Total 480 ml 360 ml Balance 480 ml 360 ml Labs: Laboratory Tests Test 12/09/20 08:00 12/09/20 12:06 12/09/20 16:44 12/09/20 19:16 Glucose (Fingerstick) 108 mg/dL (70-99) H 170 mg/dL (70-99) H 71 mg/dL (70-99) 144 mg/dL (70-99) H Current Medications: Meds: Laboratory Tests Test 12/09/20 08:00 12/09/20 12:06 12/09/20 16:44 12/09/20 19:16 Glucose (Fingerstick) 108 mg/dL 170 mg/dL 71 mg/dL 144 mg/dL Current Medications Medications (Trade) Dose Ordered Sig/Leonides Route PRN Reason Start Time Stop Time Status Last Admin Dose Admin Multi-Ingredient Ointment (Analgesic Eudora) 1 swathi PRN QID PRN TP MUSCLE PAIN 11/21/20 21:00 Al Hydroxide/Mg Hydroxide (Mylanta Plus Xs) 15 ml PRN AFTMEALHC PRN PO DYSPEPSIA 11/21/20 21:00 Magnesium Hydroxide (Milk Of Magnesia) 2,400 mg PRN QHS PRN PO 1ST CHOICE CONSTIPATION 11/21/20 21:00 Acetaminophen (Tylenol) 650 mg PRN Q4HRS PRN PO MILD PAIN / TEMP > 100.3'F 11/21/20 21:45 12/06/20 22:17 Amoxicillin/ Clavulanate Potassium (Augmentin 875/ 125mg) 1 tab BID PO 11/22/20 09:00 11/24/20 21:01 DC 11/24/20 20:55 Aspirin (Aspirin Enteric Coated) 81 mg DAILY PO 11/22/20 09:00 12/09/20 08:13 Bisacodyl (Dulcolax Tab) 5 mg PRN DAILY PRN PO 2ND CHOICE CONSTIPATION 11/21/20 21:45 Furosemide (Lasix) 40 mg DAILY PO 11/22/20 09:00 12/09/20 08:13 Acetaminophen/ Hydrocodone Bitart (Lortab 5/325) 1 tab PRN BID PRN PO mod-sev PAIN 11/21/20 21:45 12/08/20 17:03 DC 12/08/20 09:20 Ibuprofen (Motrin) 200 mg PRN Q6HRS PRN PO MILD PAIN / TEMP > 100.3'F 11/21/20 21:45 Cancel Albuterol/ Ipratropium (Duoneb) 3 ml PRN BID PRN NEB SHORTNESS OF BREATH 11/21/20 21:45 Levothyroxine Sodium (Synthroid) 112 mcg DAILY06 PO 11/22/20 06:00 12/09/20 05:26 Lorazepam (Ativan) 0.5 mg TID PO 11/21/20 22:00 12/03/20 18:47 DC 12/03/20 13:59 Zolpidem Tartrate (Ambien) 5 mg HS PO 11/21/20 22:00 11/27/20 18:02 DC 11/26/20 20:44 Betamethasone Dipropion Augmented (Betamethasone Dp Aug 0.05% Cream) 1 swathi PRN BID PRN TP RASH 11/21/20 22:15 Multi-Ingred Cream/Lotion/Oil/ Oint (Hydrocerin) 1 swathi PRN BID PRN TP Dry Hands 11/21/20 22:00 Guaifenesin (Robitussin Dm) 10 ml PRN Q8HRS PRN PO COUGH 11/21/20 22:00 Insulin Human Lispro (HumaLOG) 20 units TIDWMEALS SQ 11/22/20 08:00 12/09/20 12:15 Insulin Glargine (Lantus Syringe) 30 unit BID SQ 11/21/20 22:00 12/09/20 20:44 Magnesium Chloride (Mag Delay) 64 mg DAILY PO 11/22/20 09:00 12/09/20 08:15 Non-Formulary Medication (Menthol (Biofreeze)) 1 swathi QID PRN TP MUSCLE PAIN 11/21/20 21:45 UNV Pantoprazole Sodium (Protonix) 40 mg DAILY PO 11/22/20 09:00 12/09/20 08:13 Oxybutynin Chloride (Ditropan) 5 mg DAILY PO 11/22/20 09:00 12/09/20 08:13 Polyethylene Glycol (miraLAX) 17 gm DAILY PO 11/22/20 09:00 12/09/20 08:15 Potassium Chloride (Klor-Con) 10 meq DAILY PO 11/22/20 09:00 12/09/20 08:13 Propranolol HCl (Inderal) 40 mg DAILY PO 11/22/20 09:00 12/09/20 08:14 Quetiapine Fumarate (SEROquel) 600 mg HS PO 11/21/20 22:15 12/03/20 18:47 DC 12/02/20 20:08 Saliva Substitute (Biotene Moisturizing Mouth) 2 spray PRN TID PRN PO DRY MOUTH 11/21/20 22:15 Non-Formulary Medication (Semaglutide (Ozempic)) 1 mg QFR SQ 11/23/20 16:00 12/09/20 10:20 DC Pentoxifylline (TRENtal) 400 mg TIDWMEALS PO 11/22/20 08:00 12/09/20 17:06 Vitamin D (Vitamin D3) 2,000 unit DAILY PO 11/22/20 09:00 12/09/20 08:15 Lactobacillus Rhamnosus (Culturelle) 1 cap BID PO 11/22/20 09:00 12/09/20 20:45 Mirtazapine (Remeron) 7.5 mg QHS PO 11/27/20 21:00 12/09/20 20:46 Divalproex Sodium (Depakote Er) 500 mg QHS PO 11/28/20 21:00 12/01/20 17:12 DC 11/30/20 20:45 Divalproex Sodium (Depakote Er) 1,000 mg QHS PO 12/01/20 21:00 12/09/20 20:46 Bupropion HCl (Wellbutrin Xl) 150 mg DAILY PO 12/03/20 09:00 12/09/20 16:24 DC 12/09/20 08:14 Quetiapine Fumarate (SEROquel) 200 mg TID PO 12/03/20 21:00 12/06/20 11:47 DC 12/06/20 07:48 Clonazepam (KlonoPIN) 0.5 mg TID PO 12/03/20 21:00 12/09/20 20:45 Trazodone HCl (Desyrel) 100 mg PRN QHS PRN PO INSOMNIA, MAY REPEAT X1 12/04/20 19:15 12/08/20 20:30 Risperidone (RisperDAL) 0.5 mg 0900,1300,1700 PO 12/06/20 13:00 12/07/20 17:12 DC 12/07/20 09:00 Risperidone (RisperDAL) 1.5 mg DAILY PO 12/08/20 09:00 12/07/20 19:50 DC Risperidone (RisperDAL) 1.5 mg DAILY PO 12/07/20 20:00 12/09/20 16:24 DC 12/09/20 08:16 Acetaminophen/ Hydrocodone Bitart (Lortab 5/325) 1 tab PRN TID PRN PO mod-sev PAIN 12/08/20 17:00 12/09/20 12:18 Risperidone (RisperDAL) 2 mg DAILY PO 12/10/20 09:00 I have reviewed the current psychotropics carefully including drug interactions. Risk benefit ratio favors no change other than as noted in my dictated progress note. Diagnosis: Problems: (1) Mild cognitive impairment (2) Schizoaffective disorder, bipolar type (3) Anxiety disorder, unspecified (4) Intellectual disability (5) Impulse disorder, unspecified (6) Bipolar disorder, curr episode mixed, severe, with psychotic features RAJIV VELAZQUEZ MD Dec 09, 2020 21:28
--- NOTE | 2020-12-09 21:29 | PDOC ---
Exam Note: Donte Note: Please also refer to the separate dictated note~for this date of service dictated separately.~Patient seen individually. Discussed the patient with Nursing staff reviewed the chart.~Reviewed interim history and current functioning. Reviewed vital signs,~Labs/ Radiology~and current medications noted below. Continue current treatment with the changes noted in the dictated addendum note Assessment: Vital Signs/I&O: Vital Signs Date Time Temp Pulse Resp B/P (MAP) Pulse Ox O2 Delivery O2 Flow Rate FiO2 12/09/20 16:34 97.6 77 16 119/76 (90) 96 12/09/20 13:29 Room Air I & O 12/08/20 12/08/20 12/09/20 15:00 23:00 07:00 Intake Total 480 ml 360 ml Balance 480 ml 360 ml Labs: Laboratory Tests Test 12/09/20 08:00 12/09/20 12:06 12/09/20 16:44 12/09/20 19:16 Glucose (Fingerstick) 108 mg/dL (70-99) H 170 mg/dL (70-99) H 71 mg/dL (70-99) 144 mg/dL (70-99) H Current Medications: Meds: Laboratory Tests Test 12/09/20 08:00 12/09/20 12:06 12/09/20 16:44 12/09/20 19:16 Glucose (Fingerstick) 108 mg/dL 170 mg/dL 71 mg/dL 144 mg/dL Current Medications Medications (Trade) Dose Ordered Sig/Leonides Route PRN Reason Start Time Stop Time Status Last Admin Dose Admin Multi-Ingredient Ointment (Analgesic Maud) 1 swathi PRN QID PRN TP MUSCLE PAIN 11/21/20 21:00 Al Hydroxide/Mg Hydroxide (Mylanta Plus Xs) 15 ml PRN AFTMEALHC PRN PO DYSPEPSIA 11/21/20 21:00 Magnesium Hydroxide (Milk Of Magnesia) 2,400 mg PRN QHS PRN PO 1ST CHOICE CONSTIPATION 11/21/20 21:00 Acetaminophen (Tylenol) 650 mg PRN Q4HRS PRN PO MILD PAIN / TEMP > 100.3'F 11/21/20 21:45 12/06/20 22:17 Amoxicillin/ Clavulanate Potassium (Augmentin 875/ 125mg) 1 tab BID PO 11/22/20 09:00 11/24/20 21:01 DC 11/24/20 20:55 Aspirin (Aspirin Enteric Coated) 81 mg DAILY PO 11/22/20 09:00 12/09/20 08:13 Bisacodyl (Dulcolax Tab) 5 mg PRN DAILY PRN PO 2ND CHOICE CONSTIPATION 11/21/20 21:45 Furosemide (Lasix) 40 mg DAILY PO 11/22/20 09:00 12/09/20 08:13 Acetaminophen/ Hydrocodone Bitart (Lortab 5/325) 1 tab PRN BID PRN PO mod-sev PAIN 11/21/20 21:45 12/08/20 17:03 DC 12/08/20 09:20 Ibuprofen (Motrin) 200 mg PRN Q6HRS PRN PO MILD PAIN / TEMP > 100.3'F 11/21/20 21:45 Cancel Albuterol/ Ipratropium (Duoneb) 3 ml PRN BID PRN NEB SHORTNESS OF BREATH 11/21/20 21:45 Levothyroxine Sodium (Synthroid) 112 mcg DAILY06 PO 11/22/20 06:00 12/09/20 05:26 Lorazepam (Ativan) 0.5 mg TID PO 11/21/20 22:00 12/03/20 18:47 DC 12/03/20 13:59 Zolpidem Tartrate (Ambien) 5 mg HS PO 11/21/20 22:00 11/27/20 18:02 DC 11/26/20 20:44 Betamethasone Dipropion Augmented (Betamethasone Dp Aug 0.05% Cream) 1 swathi PRN BID PRN TP RASH 11/21/20 22:15 Multi-Ingred Cream/Lotion/Oil/ Oint (Hydrocerin) 1 swathi PRN BID PRN TP Dry Hands 11/21/20 22:00 Guaifenesin (Robitussin Dm) 10 ml PRN Q8HRS PRN PO COUGH 11/21/20 22:00 Insulin Human Lispro (HumaLOG) 20 units TIDWMEALS SQ 11/22/20 08:00 12/09/20 12:15 Insulin Glargine (Lantus Syringe) 30 unit BID SQ 11/21/20 22:00 12/09/20 20:44 Magnesium Chloride (Mag Delay) 64 mg DAILY PO 11/22/20 09:00 12/09/20 08:15 Non-Formulary Medication (Menthol (Biofreeze)) 1 swathi QID PRN TP MUSCLE PAIN 11/21/20 21:45 UNV Pantoprazole Sodium (Protonix) 40 mg DAILY PO 11/22/20 09:00 12/09/20 08:13 Oxybutynin Chloride (Ditropan) 5 mg DAILY PO 11/22/20 09:00 12/09/20 08:13 Polyethylene Glycol (miraLAX) 17 gm DAILY PO 11/22/20 09:00 12/09/20 08:15 Potassium Chloride (Klor-Con) 10 meq DAILY PO 11/22/20 09:00 12/09/20 08:13 Propranolol HCl (Inderal) 40 mg DAILY PO 11/22/20 09:00 12/09/20 08:14 Quetiapine Fumarate (SEROquel) 600 mg HS PO 11/21/20 22:15 12/03/20 18:47 DC 12/02/20 20:08 Saliva Substitute (Biotene Moisturizing Mouth) 2 spray PRN TID PRN PO DRY MOUTH 11/21/20 22:15 Non-Formulary Medication (Semaglutide (Ozempic)) 1 mg QFR SQ 11/23/20 16:00 12/09/20 10:20 DC Pentoxifylline (TRENtal) 400 mg TIDWMEALS PO 11/22/20 08:00 12/09/20 17:06 Vitamin D (Vitamin D3) 2,000 unit DAILY PO 11/22/20 09:00 12/09/20 08:15 Lactobacillus Rhamnosus (Culturelle) 1 cap BID PO 11/22/20 09:00 12/09/20 20:45 Mirtazapine (Remeron) 7.5 mg QHS PO 11/27/20 21:00 12/09/20 20:46 Divalproex Sodium (Depakote Er) 500 mg QHS PO 11/28/20 21:00 12/01/20 17:12 DC 11/30/20 20:45 Divalproex Sodium (Depakote Er) 1,000 mg QHS PO 12/01/20 21:00 12/09/20 20:46 Bupropion HCl (Wellbutrin Xl) 150 mg DAILY PO 12/03/20 09:00 12/09/20 16:24 DC 12/09/20 08:14 Quetiapine Fumarate (SEROquel) 200 mg TID PO 12/03/20 21:00 12/06/20 11:47 DC 12/06/20 07:48 Clonazepam (KlonoPIN) 0.5 mg TID PO 12/03/20 21:00 12/09/20 20:45 Trazodone HCl (Desyrel) 100 mg PRN QHS PRN PO INSOMNIA, MAY REPEAT X1 12/04/20 19:15 12/08/20 20:30 Risperidone (RisperDAL) 0.5 mg 0900,1300,1700 PO 12/06/20 13:00 12/07/20 17:12 DC 12/07/20 09:00 Risperidone (RisperDAL) 1.5 mg DAILY PO 12/08/20 09:00 12/07/20 19:50 DC Risperidone (RisperDAL) 1.5 mg DAILY PO 12/07/20 20:00 12/09/20 16:24 DC 12/09/20 08:16 Acetaminophen/ Hydrocodone Bitart (Lortab 5/325) 1 tab PRN TID PRN PO mod-sev PAIN 12/08/20 17:00 12/09/20 12:18 Risperidone (RisperDAL) 2 mg DAILY PO 12/10/20 09:00 I have reviewed the current psychotropics carefully including drug interactions. Risk benefit ratio favors no change other than as noted in my dictated progress note. Diagnosis: Problems: (1) Mild cognitive impairment (2) Schizoaffective disorder, bipolar type (3) Anxiety disorder, unspecified (4) Intellectual disability (5) Impulse disorder, unspecified (6) Bipolar disorder, curr episode mixed, severe, with psychotic features RAJIV VELAZQUEZ MD Dec 09, 2020 21:29
[2020-12-10] MEDS: LEVOTHYROXINE 112 MCG TABLET PO SCH (05:17)
[2020-12-10 06:10] VITALS: BP 132/84
[2020-12-10] MEDS: INSULIN LISPRO 300 UNITS/3 ML VIAL. SQ SCH ×3 (08:00→17:04)
[2020-12-10] MEDS: PENTOXIFYLLINE ER 400 MG TABLET.ER. PO SCH ×3 (08:00→17:00)
--- NOTE | 2020-12-10 08:14 | PDOC ---
Exam Note: Donte Note: This note is a late entry for 12/09/2020 covers elements not covered in my initial note. Subjective: The patient was seen face to face in the evening of 12/09/2020 with Nacho COPELAND. Discussed with nursing staff, reviewed the chart. The patient slept 4-3/4 hours previous night. Overall the patient did better this morning up to lunch time, then after lunch was agitated, irritable, demanding. She was starting to urinate, sitting out amongst others and staff intervened and she was swinging at staff, verbally abusive, disruptive, quite dramatic and labile in her mood. Review of Systems: No CV, , pulmonary, eye, ENT system symptoms on review. Mental Status Exam: The patient is reasonably oriented. Speech is low in rate and rhythm, low in volume, moderate latency. Abstraction is fair. Computation is impaired. Language function is intact. Attention span is short. Mood and affect remains labile. Laboratory Data: Reviewed. Impression: Schizoaffective disorder, bipolar type, mixed with psychotic features. Anxiety disorder unspecified. Impulse control disorder unspecified. Plan: Given her ongoing hypomanic symptoms, we will go ahead and stop Wellbutrin 150 mg daily. Increase Risperdal from 1.5 mg to 2 mg daily. Continue Remeron 7.5 mg h.s., Klonopin 0.5 mg t.i.d., Depakote ER 1000 mg h.s., level therapeutic at 78, trazodone 100 mg h.s. p.r.n. We may repeat x1. Reviewed drug interactions, risk-benefit ratio favors no further change at this time. Assessment: Vital Signs/I&O: Vital Signs Date Time Temp Pulse Resp B/P (MAP) Pulse Ox O2 Delivery O2 Flow Rate FiO2 12/10/20 06:10 97.3 72 16 132/84 (100) 97 Room Air I & O 12/09/20 12/09/20 12/10/20 15:00 23:00 07:00 Intake Total 600 ml 320 ml Balance 600 ml 320 ml Labs: Laboratory Tests Test 12/09/20 12:06 12/09/20 16:44 12/09/20 19:16 12/10/20 07:49 Glucose (Fingerstick) 170 mg/dL (70-99) H 71 mg/dL (70-99) 144 mg/dL (70-99) H 119 mg/dL (70-99) H Current Medications: Meds: Laboratory Tests Test 12/09/20 12:06 12/09/20 16:44 12/09/20 19:16 12/10/20 07:49 Glucose (Fingerstick) 170 mg/dL 71 mg/dL 144 mg/dL 119 mg/dL Current Medications Medications (Trade) Dose Ordered Sig/Leonides Route PRN Reason Start Time Stop Time Status Last Admin Dose Admin Multi-Ingredient Ointment (Analgesic Fidelity) 1 swathi PRN QID PRN TP MUSCLE PAIN 11/21/20 21:00 Al Hydroxide/Mg Hydroxide (Mylanta Plus Xs) 15 ml PRN AFTMEALHC PRN PO DYSPEPSIA 11/21/20 21:00 Magnesium Hydroxide (Milk Of Magnesia) 2,400 mg PRN QHS PRN PO 1ST CHOICE CONSTIPATION 11/21/20 21:00 Acetaminophen (Tylenol) 650 mg PRN Q4HRS PRN PO MILD PAIN / TEMP > 100.3'F 11/21/20 21:45 12/06/20 22:17 Amoxicillin/ Clavulanate Potassium (Augmentin 875/ 125mg) 1 tab BID PO 11/22/20 09:00 11/24/20 21:01 DC 11/24/20 20:55 Aspirin (Aspirin Enteric Coated) 81 mg DAILY PO 11/22/20 09:00 12/09/20 08:13 Bisacodyl (Dulcolax Tab) 5 mg PRN DAILY PRN PO 2ND CHOICE CONSTIPATION 11/21/20 21:45 Furosemide (Lasix) 40 mg DAILY PO 11/22/20 09:00 12/09/20 08:13 Acetaminophen/ Hydrocodone Bitart (Lortab 5/325) 1 tab PRN BID PRN PO mod-sev PAIN 11/21/20 21:45 12/08/20 17:03 DC 12/08/20 09:20 Ibuprofen (Motrin) 200 mg PRN Q6HRS PRN PO MILD PAIN / TEMP > 100.3'F 11/21/20 21:45 Cancel Albuterol/ Ipratropium (Duoneb) 3 ml PRN BID PRN NEB SHORTNESS OF BREATH 11/21/20 21:45 Levothyroxine Sodium (Synthroid) 112 mcg DAILY06 PO 11/22/20 06:00 12/10/20 05:17 Lorazepam (Ativan) 0.5 mg TID PO 11/21/20 22:00 12/03/20 18:47 DC 12/03/20 13:59 Zolpidem Tartrate (Ambien) 5 mg HS PO 11/21/20 22:00 11/27/20 18:02 DC 11/26/20 20:44 Betamethasone Dipropion Augmented (Betamethasone Dp Aug 0.05% Cream) 1 swathi PRN BID PRN TP RASH 11/21/20 22:15 Multi-Ingred Cream/Lotion/Oil/ Oint (Hydrocerin) 1 swathi PRN BID PRN TP Dry Hands 11/21/20 22:00 Guaifenesin (Robitussin Dm) 10 ml PRN Q8HRS PRN PO COUGH 11/21/20 22:00 Insulin Human Lispro (HumaLOG) 20 units TIDWMEALS SQ 11/22/20 08:00 12/09/20 12:15 Insulin Glargine (Lantus Syringe) 30 unit BID SQ 11/21/20 22:00 12/09/20 20:44 Magnesium Chloride (Mag Delay) 64 mg DAILY PO 11/22/20 09:00 12/09/20 08:15 Non-Formulary Medication (Menthol (Biofreeze)) 1 swathi QID PRN TP MUSCLE PAIN 11/21/20 21:45 UNV Pantoprazole Sodium (Protonix) 40 mg DAILY PO 11/22/20 09:00 12/09/20 08:13 Oxybutynin Chloride (Ditropan) 5 mg DAILY PO 11/22/20 09:00 12/09/20 08:13 Polyethylene Glycol (miraLAX) 17 gm DAILY PO 11/22/20 09:00 12/09/20 08:15 Potassium Chloride (Klor-Con) 10 meq DAILY PO 11/22/20 09:00 12/09/20 08:13 Propranolol HCl (Inderal) 40 mg DAILY PO 11/22/20 09:00 12/09/20 08:14 Quetiapine Fumarate (SEROquel) 600 mg HS PO 11/21/20 22:15 12/03/20 18:47 DC 12/02/20 20:08 Saliva Substitute (Biotene Moisturizing Mouth) 2 spray PRN TID PRN PO DRY MOUTH 11/21/20 22:15 Non-Formulary Medication (Semaglutide (Ozempic)) 1 mg QFR SQ 11/23/20 16:00 12/09/20 10:20 DC Pentoxifylline (TRENtal) 400 mg TIDWMEALS PO 11/22/20 08:00 12/09/20 17:06 Vitamin D (Vitamin D3) 2,000 unit DAILY PO 11/22/20 09:00 12/09/20 08:15 Lactobacillus Rhamnosus (Culturelle) 1 cap BID PO 11/22/20 09:00 12/09/20 20:45 Mirtazapine (Remeron) 7.5 mg QHS PO 11/27/20 21:00 12/09/20 20:46 Divalproex Sodium (Depakote Er) 500 mg QHS PO 11/28/20 21:00 12/01/20 17:12 DC 11/30/20 20:45 Divalproex Sodium (Depakote Er) 1,000 mg QHS PO 12/01/20 21:00 12/09/20 20:46 Bupropion HCl (Wellbutrin Xl) 150 mg DAILY PO 12/03/20 09:00 12/09/20 16:24 DC 12/09/20 08:14 Quetiapine Fumarate (SEROquel) 200 mg TID PO 12/03/20 21:00 12/06/20 11:47 DC 12/06/20 07:48 Clonazepam (KlonoPIN) 0.5 mg TID PO 12/03/20 21:00 12/09/20 20:45 Trazodone HCl (Desyrel) 100 mg PRN QHS PRN PO INSOMNIA, MAY REPEAT X1 12/04/20 19:15 12/08/20 20:30 Risperidone (RisperDAL) 0.5 mg 0900,1300,1700 PO 12/06/20 13:00 12/07/20 17:12 DC 12/07/20 09:00 Risperidone (RisperDAL) 1.5 mg DAILY PO 12/08/20 09:00 12/07/20 19:50 DC Risperidone (RisperDAL) 1.5 mg DAILY PO 12/07/20 20:00 12/09/20 16:24 DC 12/09/20 08:16 Acetaminophen/ Hydrocodone Bitart (Lortab 5/325) 1 tab PRN TID PRN PO mod-sev PAIN 12/08/20 17:00 12/09/20 22:59 Risperidone (RisperDAL) 2 mg DAILY PO 12/10/20 09:00 I have reviewed the current psychotropics carefully including drug interactions. Risk benefit ratio favors no change other than as noted in my dictated progress note. Diagnosis: Problems: (1) Mild cognitive impairment (2) Schizoaffective disorder, bipolar type (3) Anxiety disorder, unspecified (4) Intellectual disability (5) Impulse disorder, unspecified (6) Bipolar disorder, curr episode mixed, severe, with psychotic features RAJIV VELAZQUEZ MD Dec 10, 2020 08:14
[2020-12-10] MEDS: risperiDONE ORAL 1 MG/ML 30ml BOTTLE. PO SCH (08:50)
[2020-12-10] MEDS: INSULIN GLARGINE SYRINGE. SQ SCH ×2 (09:00→20:47)
[2020-12-10] MEDS: FUROSEMIDE 40 MG TABLET PO SCH (09:00)
[2020-12-10] MEDS: ASPIRIN ENTERIC COATED 81 MG TABLET.DR. PO SCH (09:00)
[2020-12-10] MEDS: POLYETHYLENE GLYCOL 3350 17 GM PACKET. PO SCH (09:00)
[2020-12-10] MEDS: MAGNESIUM CHLORIDE ER 64 MG TABLET.ER PO SCH (09:00)
[2020-12-10] MEDS: POTASSIUM CHLORIDE 10 MEQ TABLET.ER. PO SCH (09:00)
[2020-12-10] MEDS: LACTOBACILLUS RHAMNOSUS GG 1 CAPSULE. PO SCH ×2 (09:00→20:08)
[2020-12-10] MEDS: OXYBUTYNIN CHLORIDE 5 MG TABLET PO SCH (09:00)
[2020-12-10] MEDS: PROPRANOLOL 20 MG TABLET. PO SCH (09:00)
[2020-12-10] MEDS: clonazePAM 0.5 MG TABLET PO SCH ×3 (09:00→20:08)
[2020-12-10] MEDS: PANTOPRAZOLE 40 MG TABLET. PO SCH (09:00)
[2020-12-10] MEDS: CHOLECALCIFEROL (VITAMIN D3) 1,000 UNIT TABLET PO SCH (09:00)
[2020-12-10 16:18] VITALS: BP 116/62
[2020-12-10] MEDS: DIVALPROEX ER 500 MG TAB.ER.24H PO SCH (20:08)
[2020-12-10] MEDS: MIRTAZAPINE 7.5 MG TABLET. PO SCH (20:08)
[2020-12-10] MEDS: traZODone 100 MG TABLET. PO PRN (20:08)
[2020-12-10] MEDS: HYDROcodone/APAP 5/325MG 1 TAB TABLET PO PRN (20:10)
--- NOTE | 2020-12-10 21:00 | PDOC ---
Exam Note: Donte Note: Please also refer to the separate dictated note~for this date of service dictated separately.~Patient seen individually. Discussed the patient with Nursing staff reviewed the chart.~Reviewed interim history and current functioning. Reviewed vital signs,~Labs/ Radiology~and current medications noted below. Continue current treatment with the changes noted in the dictated addendum note Assessment: Vital Signs/I&O: Vital Signs Date Time Temp Pulse Resp B/P (MAP) Pulse Ox O2 Delivery O2 Flow Rate FiO2 12/10/20 20:10 96 12/10/20 16:18 97.5 84 18 116/62 (80) 12/10/20 06:10 Room Air I & O 12/09/20 12/09/20 12/10/20 15:00 23:00 07:00 Intake Total 600 ml 320 ml Balance 600 ml 320 ml Labs: Laboratory Tests Test 12/10/20 07:49 12/10/20 11:57 12/10/20 16:56 12/10/20 19:02 Glucose (Fingerstick) 119 mg/dL (70-99) H 194 mg/dL (70-99) H 210 mg/dL (70-99) H 152 mg/dL (70-99) H Current Medications: Meds: Laboratory Tests Test 12/10/20 07:49 12/10/20 11:57 12/10/20 16:56 12/10/20 19:02 Glucose (Fingerstick) 119 mg/dL 194 mg/dL 210 mg/dL 152 mg/dL Current Medications Medications (Trade) Dose Ordered Sig/Leonides Route PRN Reason Start Time Stop Time Status Last Admin Dose Admin Multi-Ingredient Ointment (Analgesic [place]) 1 swathi PRN QID PRN TP MUSCLE PAIN 11/21/20 21:00 Al Hydroxide/Mg Hydroxide (Mylanta Plus Xs) 15 ml PRN AFTMEALHC PRN PO DYSPEPSIA 11/21/20 21:00 Magnesium Hydroxide (Milk Of Magnesia) 2,400 mg PRN QHS PRN PO 1ST CHOICE CONSTIPATION 11/21/20 21:00 Acetaminophen (Tylenol) 650 mg PRN Q4HRS PRN PO MILD PAIN / TEMP > 100.3'F 11/21/20 21:45 12/06/20 22:17 Amoxicillin/ Clavulanate Potassium (Augmentin 875/ 125mg) 1 tab BID PO 11/22/20 09:00 11/24/20 21:01 DC 11/24/20 20:55 Aspirin (Aspirin Enteric Coated) 81 mg DAILY PO 11/22/20 09:00 12/09/20 08:13 Bisacodyl (Dulcolax Tab) 5 mg PRN DAILY PRN PO 2ND CHOICE CONSTIPATION 11/21/20 21:45 Furosemide (Lasix) 40 mg DAILY PO 11/22/20 09:00 12/09/20 08:13 Acetaminophen/ Hydrocodone Bitart (Lortab 5/325) 1 tab PRN BID PRN PO mod-sev PAIN 11/21/20 21:45 12/08/20 17:03 DC 12/08/20 09:20 Ibuprofen (Motrin) 200 mg PRN Q6HRS PRN PO MILD PAIN / TEMP > 100.3'F 11/21/20 21:45 Cancel Albuterol/ Ipratropium (Duoneb) 3 ml PRN BID PRN NEB SHORTNESS OF BREATH 11/21/20 21:45 Levothyroxine Sodium (Synthroid) 112 mcg DAILY06 PO 11/22/20 06:00 12/10/20 05:17 Lorazepam (Ativan) 0.5 mg TID PO 11/21/20 22:00 12/03/20 18:47 DC 12/03/20 13:59 Zolpidem Tartrate (Ambien) 5 mg HS PO 11/21/20 22:00 11/27/20 18:02 DC 11/26/20 20:44 Betamethasone Dipropion Augmented (Betamethasone Dp Aug 0.05% Cream) 1 swathi PRN BID PRN TP RASH 11/21/20 22:15 Multi-Ingred Cream/Lotion/Oil/ Oint (Hydrocerin) 1 swathi PRN BID PRN TP Dry Hands 11/21/20 22:00 Guaifenesin (Robitussin Dm) 10 ml PRN Q8HRS PRN PO COUGH 11/21/20 22:00 Insulin Human Lispro (HumaLOG) 20 units TIDWMEALS SQ 11/22/20 08:00 12/10/20 17:04 Insulin Glargine (Lantus Syringe) 30 unit BID SQ 11/21/20 22:00 12/10/20 20:47 Magnesium Chloride (Mag Delay) 64 mg DAILY PO 11/22/20 09:00 12/09/20 08:15 Non-Formulary Medication (Menthol (Biofreeze)) 1 swathi QID PRN TP MUSCLE PAIN 11/21/20 21:45 UNV Pantoprazole Sodium (Protonix) 40 mg DAILY PO 11/22/20 09:00 12/09/20 08:13 Oxybutynin Chloride (Ditropan) 5 mg DAILY PO 11/22/20 09:00 12/09/20 08:13 Polyethylene Glycol (miraLAX) 17 gm DAILY PO 11/22/20 09:00 12/09/20 08:15 Potassium Chloride (Klor-Con) 10 meq DAILY PO 11/22/20 09:00 12/09/20 08:13 Propranolol HCl (Inderal) 40 mg DAILY PO 11/22/20 09:00 12/09/20 08:14 Quetiapine Fumarate (SEROquel) 600 mg HS PO 11/21/20 22:15 12/03/20 18:47 DC 12/02/20 20:08 Saliva Substitute (Biotene Moisturizing Mouth) 2 spray PRN TID PRN PO DRY MOUTH 11/21/20 22:15 Non-Formulary Medication (Semaglutide (Ozempic)) 1 mg QFR SQ 11/23/20 16:00 12/09/20 10:20 DC Pentoxifylline (TRENtal) 400 mg TIDWMEALS PO 11/22/20 08:00 12/10/20 17:00 Vitamin D (Vitamin D3) 2,000 unit DAILY PO 11/22/20 09:00 12/09/20 08:15 Lactobacillus Rhamnosus (Culturelle) 1 cap BID PO 11/22/20 09:00 12/10/20 20:08 Mirtazapine (Remeron) 7.5 mg QHS PO 11/27/20 21:00 12/10/20 20:08 Divalproex Sodium (Depakote Er) 500 mg QHS PO 11/28/20 21:00 12/01/20 17:12 DC 11/30/20 20:45 Divalproex Sodium (Depakote Er) 1,000 mg QHS PO 12/01/20 21:00 12/10/20 20:08 Bupropion HCl (Wellbutrin Xl) 150 mg DAILY PO 12/03/20 09:00 12/09/20 16:24 DC 12/09/20 08:14 Quetiapine Fumarate (SEROquel) 200 mg TID PO 12/03/20 21:00 12/06/20 11:47 DC 12/06/20 07:48 Clonazepam (KlonoPIN) 0.5 mg TID PO 12/03/20 21:00 12/10/20 20:08 Trazodone HCl (Desyrel) 100 mg PRN QHS PRN PO INSOMNIA, MAY REPEAT X1 12/04/20 19:15 12/10/20 20:08 Risperidone (RisperDAL) 0.5 mg 0900,1300,1700 PO 12/06/20 13:00 12/07/20 17:12 DC 12/07/20 09:00 Risperidone (RisperDAL) 1.5 mg DAILY PO 12/08/20 09:00 12/07/20 19:50 DC Risperidone (RisperDAL) 1.5 mg DAILY PO 12/07/20 20:00 12/09/20 16:24 DC 12/09/20 08:16 Acetaminophen/ Hydrocodone Bitart (Lortab 5/325) 1 tab PRN TID PRN PO mod-sev PAIN 12/08/20 17:00 12/10/20 20:10 Risperidone (RisperDAL) 2 mg DAILY PO 12/10/20 09:00 12/10/20 08:50 Current Medications Medications (Trade) Dose Ordered Sig/Leonides Route PRN Reason Start Time Stop Time Status Last Admin Dose Admin Risperidone (RisperDAL) 2 mg DAILY PO 12/10/20 09:00 12/10/20 08:50 I have reviewed the current psychotropics carefully including drug interactions. Risk benefit ratio favors no change other than as noted in my dictated progress note. Diagnosis: Problems: (1) Mild cognitive impairment (2) Schizoaffective disorder, bipolar type (3) Anxiety disorder, unspecified (4) Intellectual disability (5) Impulse disorder, unspecified (6) Bipolar disorder, curr episode mixed, severe, with psychotic features RAJIV VELAZQUEZ MD Dec 10, 2020 21:00
[2020-12-11] MEDS: LEVOTHYROXINE 112 MCG TABLET PO SCH (05:13)
[2020-12-11] MEDS: HYDROcodone/APAP 5/325MG 1 TAB TABLET PO PRN ×2 (05:21→20:11)
[2020-12-11 06:28] VITALS: BP 141/86
[2020-12-11 07:21] LABS: BASO % 1 % (0-3); EOS # 0.2 x10^3/uL (0.0-0.7); EOS % 3 % (0-3); HEMATOCRIT 38.4 % (36.0-47.0); HEMOGLOBIN 12.6 g/dL (12.0-15.5); LYMPH # 2.1 x10^3/uL (1.0-4.8); LYMPH % 30 % (24-48); MEAN CORPUSCULAR HEMOGLOBIN 28 pg (25-35); MEAN CORPUSCULAR HGB CONC 33 g/dL (31-37); MEAN CORPUSCULAR VOLUME 86 fL (79-100); MONO # 0.9 x10^3/uL (0.0-1.1); MONO % 13 % (0-9); NEUT # 3.7 x10^3uL (1.8-7.7); NEUT % 53 % (31-73); PLATELET COUNT 184 x10^3/uL (140-400); RED BLOOD COUNT 4.47 x10^6/uL (3.50-5.40); RED CELL DISTRIBUTION WIDTH 12.8 % (11.5-14.5)
[2020-12-11 07:36] LABS: ALBUMIN 2.9 g/dL (3.4-5.0); ALBUMIN/GLOBULIN RATIO 0.7 (1.0-1.7); CALCIUM 8.8 mg/dL (8.5-10.1); CREATININE 0.8 mg/dL (0.6-1.0); TOTAL BILIRUBIN 0.2 mg/dL (0.2-1.0); TOTAL PROTEIN 6.8 g/dL (6.4-8.2)
[2020-12-11] MEDS: PENTOXIFYLLINE ER 400 MG TABLET.ER. PO SCH ×3 (08:00→17:00)
[2020-12-11] MEDS: INSULIN LISPRO 300 UNITS/3 ML VIAL. SQ SCH ×3 (08:00→17:00)
[2020-12-11] MEDS: risperiDONE ORAL 1 MG/ML 30ml BOTTLE. PO SCH (08:28)
[2020-12-11] MEDS: INSULIN GLARGINE SYRINGE. SQ SCH ×2 (08:36→21:08)
[2020-12-11] MEDS: CHOLECALCIFEROL (VITAMIN D3) 1,000 UNIT TABLET PO SCH (09:00)
[2020-12-11] MEDS: PANTOPRAZOLE 40 MG TABLET. PO SCH (09:00)
[2020-12-11] MEDS: PROPRANOLOL 20 MG TABLET. PO SCH (09:00)
[2020-12-11] MEDS: FUROSEMIDE 40 MG TABLET PO SCH (09:00)
[2020-12-11] MEDS: ASPIRIN ENTERIC COATED 81 MG TABLET.DR. PO SCH (09:00)
[2020-12-11] MEDS: MAGNESIUM CHLORIDE ER 64 MG TABLET.ER PO SCH (09:00)
[2020-12-11] MEDS: POLYETHYLENE GLYCOL 3350 17 GM PACKET. PO SCH (09:00)
[2020-12-11] MEDS: clonazePAM 0.5 MG TABLET PO SCH ×3 (09:00→20:11)
[2020-12-11] MEDS: OXYBUTYNIN CHLORIDE 5 MG TABLET PO SCH (09:00)
[2020-12-11] MEDS: POTASSIUM CHLORIDE 10 MEQ TABLET.ER. PO SCH (09:00)
[2020-12-11] MEDS: LACTOBACILLUS RHAMNOSUS GG 1 CAPSULE. PO SCH ×2 (09:00→20:11)
[2020-12-11 15:33] VITALS: BP 131/82
[2020-12-11] MEDS: DIVALPROEX ER 500 MG TAB.ER.24H PO SCH (20:11)
[2020-12-11] MEDS: MIRTAZAPINE 15 MG TABLET PO SCH (20:11)
[2020-12-11] MEDS: traZODone 100 MG TABLET. PO PRN (20:11)
--- NOTE | 2020-12-11 20:56 | PDOC ---
Exam Note: Donte Note: Please also refer to the separate dictated note~for this date of service dictated separately.~Patient seen individually. Discussed the patient with Nursing staff reviewed the chart.~Reviewed interim history and current functioning. Reviewed vital signs,~Labs/ Radiology~and current medications noted below. Continue current treatment with the changes noted in the dictated addendum note Assessment: Vital Signs/I&O: Vital Signs Date Time Temp Pulse Resp B/P (MAP) Pulse Ox O2 Delivery O2 Flow Rate FiO2 12/11/20 20:11 99 12/11/20 15:33 97.1 84 17 131/82 (98) 12/11/20 06:28 Room Air I & O 12/10/20 12/10/20 12/11/20 15:00 23:00 07:00 Intake Total 680 ml 360 ml Balance 680 ml 360 ml Labs: Laboratory Tests Test 12/11/20 06:30 12/11/20 07:43 12/11/20 11:37 12/11/20 16:57 White Blood Count 7.0 x10^3/uL (4.0-11.0) Red Blood Count 4.47 x10^6/uL (3.50-5.40) Hemoglobin 12.6 g/dL (12.0-15.5) Hematocrit 38.4 % (36.0-47.0) Mean Corpuscular Volume 86 fL (79-100) Mean Corpuscular Hemoglobin 28 pg (25-35) Mean Corpuscular Hemoglobin Concent 33 g/dL (31-37) Red Cell Distribution Width 12.8 % (11.5-14.5) Platelet Count 184 x10^3/uL (140-400) Neutrophils (%) (Auto) 53 % (31-73) Lymphocytes (%) (Auto) 30 % (24-48) Monocytes (%) (Auto) 13 % (0-9) H Eosinophils (%) (Auto) 3 % (0-3) Basophils (%) (Auto) 1 % (0-3) Neutrophils # (Auto) 3.7 x10^3uL (1.8-7.7) Lymphocytes # (Auto) 2.1 x10^3/uL (1.0-4.8) Monocytes # (Auto) 0.9 x10^3/uL (0.0-1.1) Eosinophils # (Auto) 0.2 x10^3/uL (0.0-0.7) Basophils # (Auto) 0.0 x10^3/uL (0.0-0.2) Sodium Level 142 mmol/L (136-145) Potassium Level 4.0 mmol/L (3.5-5.1) Chloride Level 105 mmol/L (98-107) Carbon Dioxide Level 27 mmol/L (21-32) Anion Gap 10 (6-14) Blood Urea Nitrogen 15 mg/dL (7-20) Creatinine 0.8 mg/dL (0.6-1.0) Estimated GFR (Cockcroft-Gault) 72.0 BUN/Creatinine Ratio 19 (6-20) Glucose Level 111 mg/dL (70-99) H Calcium Level 8.8 mg/dL (8.5-10.1) Total Bilirubin 0.2 mg/dL (0.2-1.0) Aspartate Amino Transferase (AST) 26 U/L (15-37) Alanine Aminotransferase (ALT) 29 U/L (14-59) Alkaline Phosphatase 116 U/L (46-116) Total Protein 6.8 g/dL (6.4-8.2) Albumin 2.9 g/dL (3.4-5.0) L Albumin/Globulin Ratio 0.7 (1.0-1.7) L Glucose (Fingerstick) 119 mg/dL (70-99) H 147 mg/dL (70-99) H 141 mg/dL (70-99) H Test 12/11/20 19:13 Glucose (Fingerstick) 222 mg/dL (70-99) H Current Medications: Meds: Laboratory Tests Test 12/11/20 06:30 12/11/20 07:43 12/11/20 11:37 12/11/20 16:57 White Blood Count 7.0 x10^3/uL Red Blood Count 4.47 x10^6/uL Hemoglobin 12.6 g/dL Hematocrit 38.4 % Mean Corpuscular Volume 86 fL Mean Corpuscular Hemoglobin 28 pg Mean Corpuscular Hemoglobin Concent 33 g/dL Red Cell Distribution Width 12.8 % Platelet Count 184 x10^3/uL Neutrophils (%) (Auto) 53 % Lymphocytes (%) (Auto) 30 % Monocytes (%) (Auto) 13 % Eosinophils (%) (Auto) 3 % Basophils (%) (Auto) 1 % Neutrophils # (Auto) 3.7 x10^3uL Lymphocytes # (Auto) 2.1 x10^3/uL Monocytes # (Auto) 0.9 x10^3/uL Eosinophils # (Auto) 0.2 x10^3/uL Basophils # (Auto) 0.0 x10^3/uL Sodium Level 142 mmol/L Potassium Level 4.0 mmol/L Chloride Level 105 mmol/L Carbon Dioxide Level 27 mmol/L Anion Gap 10 Blood Urea Nitrogen 15 mg/dL Creatinine 0.8 mg/dL Estimated GFR (Cockcroft-Gault) 72.0 BUN/Creatinine Ratio 19 Glucose Level 111 mg/dL Calcium Level 8.8 mg/dL Total Bilirubin 0.2 mg/dL Aspartate Amino Transf (AST/SGOT) 26 U/L Alanine Aminotransferase (ALT/SGPT) 29 U/L Alkaline Phosphatase 116 U/L Total Protein 6.8 g/dL Albumin 2.9 g/dL Albumin/Globulin Ratio 0.7 Glucose (Fingerstick) 119 mg/dL 147 mg/dL 141 mg/dL Test 12/11/20 19:13 Glucose (Fingerstick) 222 mg/dL Current Medications Medications (Trade) Dose Ordered Sig/Leonides Route PRN Reason Start Time Stop Time Status Last Admin Dose Admin Multi-Ingredient Ointment (Analgesic [place]) 1 swathi PRN QID PRN TP MUSCLE PAIN 11/21/20 21:00 Al Hydroxide/Mg Hydroxide (Mylanta Plus Xs) 15 ml PRN AFTMEALHC PRN PO DYSPEPSIA 11/21/20 21:00 Magnesium Hydroxide (Milk Of Magnesia) 2,400 mg PRN QHS PRN PO 1ST CHOICE CONSTIPATION 11/21/20 21:00 Acetaminophen (Tylenol) 650 mg PRN Q4HRS PRN PO MILD PAIN / TEMP > 100.3'F 11/21/20 21:45 12/06/20 22:17 Amoxicillin/ Clavulanate Potassium (Augmentin 875/ 125mg) 1 tab BID PO 11/22/20 09:00 11/24/20 21:01 DC 11/24/20 20:55 Aspirin (Aspirin Enteric Coated) 81 mg DAILY PO 11/22/20 09:00 12/09/20 08:13 Bisacodyl (Dulcolax Tab) 5 mg PRN DAILY PRN PO 2ND CHOICE CONSTIPATION 11/21/20 21:45 Furosemide (Lasix) 40 mg DAILY PO 11/22/20 09:00 12/09/20 08:13 Acetaminophen/ Hydrocodone Bitart (Lortab 5/325) 1 tab PRN BID PRN PO mod-sev PAIN 11/21/20 21:45 12/08/20 17:03 DC 12/08/20 09:20 Ibuprofen (Motrin) 200 mg PRN Q6HRS PRN PO MILD PAIN / TEMP > 100.3'F 11/21/20 21:45 Cancel Albuterol/ Ipratropium (Duoneb) 3 ml PRN BID PRN NEB SHORTNESS OF BREATH 11/21/20 21:45 Levothyroxine Sodium (Synthroid) 112 mcg DAILY06 PO 11/22/20 06:00 12/11/20 05:13 Lorazepam (Ativan) 0.5 mg TID PO 11/21/20 22:00 12/03/20 18:47 DC 12/03/20 13:59 Zolpidem Tartrate (Ambien) 5 mg HS PO 11/21/20 22:00 11/27/20 18:02 DC 11/26/20 20:44 Betamethasone Dipropion Augmented (Betamethasone Dp Aug 0.05% Cream) 1 swathi PRN BID PRN TP RASH 11/21/20 22:15 Multi-Ingred Cream/Lotion/Oil/ Oint (Hydrocerin) 1 swathi PRN BID PRN TP Dry Hands 11/21/20 22:00 Guaifenesin (Robitussin Dm) 10 ml PRN Q8HRS PRN PO COUGH 11/21/20 22:00 Insulin Human Lispro (HumaLOG) 20 units TIDWMEALS SQ 11/22/20 08:00 12/11/20 17:00 Insulin Glargine (Lantus Syringe) 30 unit BID SQ 11/21/20 22:00 12/11/20 08:36 Magnesium Chloride (Mag Delay) 64 mg DAILY PO 11/22/20 09:00 12/09/20 08:15 Non-Formulary Medication (Menthol (Biofreeze)) 1 swathi QID PRN TP MUSCLE PAIN 11/21/20 21:45 UNV Pantoprazole Sodium (Protonix) 40 mg DAILY PO 11/22/20 09:00 12/09/20 08:13 Oxybutynin Chloride (Ditropan) 5 mg DAILY PO 11/22/20 09:00 12/09/20 08:13 Polyethylene Glycol (miraLAX) 17 gm DAILY PO 11/22/20 09:00 12/09/20 08:15 Potassium Chloride (Klor-Con) 10 meq DAILY PO 11/22/20 09:00 12/09/20 08:13 Propranolol HCl (Inderal) 40 mg DAILY PO 11/22/20 09:00 12/09/20 08:14 Quetiapine Fumarate (SEROquel) 600 mg HS PO 11/21/20 22:15 12/03/20 18:47 DC 12/02/20 20:08 Saliva Substitute (Biotene Moisturizing Mouth) 2 spray PRN TID PRN PO DRY MOUTH 11/21/20 22:15 Non-Formulary Medication (Semaglutide (Ozempic)) 1 mg QFR SQ 11/23/20 16:00 12/09/20 10:20 DC Pentoxifylline (TRENtal) 400 mg TIDWMEALS PO 11/22/20 08:00 12/10/20 17:00 Vitamin D (Vitamin D3) 2,000 unit DAILY PO 11/22/20 09:00 12/09/20 08:15 Lactobacillus Rhamnosus (Culturelle) 1 cap BID PO 11/22/20 09:00 12/11/20 20:11 Mirtazapine (Remeron) 7.5 mg QHS PO 11/27/20 21:00 12/11/20 17:03 DC 12/10/20 20:08 Divalproex Sodium (Depakote Er) 500 mg QHS PO 11/28/20 21:00 12/01/20 17:12 DC 11/30/20 20:45 Divalproex Sodium (Depakote Er) 1,000 mg QHS PO 12/01/20 21:00 12/11/20 20:11 Bupropion HCl (Wellbutrin Xl) 150 mg DAILY PO 12/03/20 09:00 12/09/20 16:24 DC 12/09/20 08:14 Quetiapine Fumarate (SEROquel) 200 mg TID PO 12/03/20 21:00 12/06/20 11:47 DC 12/06/20 07:48 Clonazepam (KlonoPIN) 0.5 mg TID PO 12/03/20 21:00 12/11/20 20:11 Trazodone HCl (Desyrel) 100 mg PRN QHS PRN PO INSOMNIA, MAY REPEAT X1 12/04/20 19:15 12/11/20 20:11 Risperidone (RisperDAL) 0.5 mg 0900,1300,1700 PO 12/06/20 13:00 12/07/20 17:12 DC 12/07/20 09:00 Risperidone (RisperDAL) 1.5 mg DAILY PO 12/08/20 09:00 12/07/20 19:50 DC Risperidone (RisperDAL) 1.5 mg DAILY PO 12/07/20 20:00 12/09/20 16:24 DC 12/09/20 08:16 Acetaminophen/ Hydrocodone Bitart (Lortab 5/325) 1 tab PRN TID PRN PO mod-sev PAIN 12/08/20 17:00 12/11/20 20:11 Risperidone (RisperDAL) 2 mg DAILY PO 12/10/20 09:00 12/11/20 08:28 Mirtazapine (Remeron) 15 mg QHS PO 12/11/20 21:00 12/11/20 20:11 Current Medications Medications (Trade) Dose Ordered Sig/Leonides Route PRN Reason Start Time Stop Time Status Last Admin Dose Admin Mirtazapine (Remeron) 15 mg QHS PO 12/11/20 21:00 12/11/20 20:11 I have reviewed the current psychotropics carefully including drug interactions. Risk benefit ratio favors no change other than as noted in my dictated progress note. Diagnosis: Problems: (1) Mild cognitive impairment (2) Schizoaffective disorder, bipolar type (3) Anxiety disorder, unspecified (4) Intellectual disability (5) Impulse disorder, unspecified (6) Bipolar disorder, curr episode mixed, severe, with psychotic features RAJIV VELAZQUEZ MD Dec 11, 2020 20:56
[2020-12-12] MEDS: traZODone 100 MG TABLET. PO PRN ×3 (00:26→22:54)
[2020-12-12] MEDS: LEVOTHYROXINE 112 MCG TABLET PO SCH (05:02)
[2020-12-12 06:19] VITALS: BP 155/90
[2020-12-12] MEDS: LACTOBACILLUS RHAMNOSUS GG 1 CAPSULE. PO SCH ×2 (08:02→20:19)
[2020-12-12] MEDS: POLYETHYLENE GLYCOL 3350 17 GM PACKET. PO SCH (08:02)
[2020-12-12] MEDS: POTASSIUM CHLORIDE 10 MEQ TABLET.ER. PO SCH (08:02)
[2020-12-12] MEDS: PENTOXIFYLLINE ER 400 MG TABLET.ER. PO SCH ×3 (08:02→17:39)
[2020-12-12] MEDS: CHOLECALCIFEROL (VITAMIN D3) 1,000 UNIT TABLET PO SCH (08:02)
[2020-12-12] MEDS: MAGNESIUM CHLORIDE ER 64 MG TABLET.ER PO SCH (08:02)
[2020-12-12] MEDS: FUROSEMIDE 40 MG TABLET PO SCH (08:03)
[2020-12-12] MEDS: OXYBUTYNIN CHLORIDE 5 MG TABLET PO SCH (08:03)
[2020-12-12] MEDS: PROPRANOLOL 20 MG TABLET. PO SCH (08:03)
[2020-12-12] MEDS: ASPIRIN ENTERIC COATED 81 MG TABLET.DR. PO SCH (08:03)
[2020-12-12] MEDS: PANTOPRAZOLE 40 MG TABLET. PO SCH (08:03)
[2020-12-12] MEDS: clonazePAM 0.5 MG TABLET PO SCH ×3 (08:05→20:19)
[2020-12-12] MEDS: risperiDONE ORAL 1 MG/ML 30ml BOTTLE. PO SCH (08:06)
[2020-12-12] MEDS: INSULIN LISPRO 300 UNITS/3 ML VIAL. SQ SCH ×3 (08:09→17:00)
--- NOTE | 2020-12-12 08:41 | PDOC ---
Exam Note: Donte Note: This note is a late entry for 12/10/2020 covers elements not covered in my initial note. Subjective: The patient was seen face to face in the evening of 12/10/2020 with Marissa COPELAND. Discussed with nursing staff, reviewed the chart. The patient slept 2-3/4 hours previous night. Overall the patient has been somewhat more non- compliant with the medications during the day with Elizabeth RN but more cooperative in the evening with Marissa RN. She still gets somewhat impulsive, very guarded, at times withdrawn. I met with her in her room. Review of Systems: No CV, , pulmonary, eye, ENT system symptoms on review. Mental Status Exam: The patient is reasonably oriented. Speech has some latency, coherent, low in volume. Abstraction is fair. Computation is impaired. Language function is intact. Mood and affect withdrawn at times, less paranoid. Laboratory Data: Reviewed. Impression: Schizoaffective disorder, bipolar type, mixed with psychotic features. Anxiety disorder unspecified. Impulse control disorder unspecified. Plan: We may need to adjust the Risperdal depending on her psychotic symptoms. Valproic acid level is therapeutic at 78 on Depakote ER 1000 mg h.s. Continue rest unchanged. Assessment: Vital Signs/I&O: Vital Signs Date Time Temp Pulse Resp B/P (MAP) Pulse Ox O2 Delivery O2 Flow Rate FiO2 12/12/20 08:03 88 155/90 12/12/20 06:19 97.4 20 98 Room Air I & O 12/11/20 12/11/20 12/12/20 14:59 22:59 06:59 Intake Total 720 ml 480 ml Balance 720 ml 480 ml Labs: Laboratory Tests Test 12/11/20 11:37 12/11/20 16:57 12/11/20 19:13 12/12/20 07:30 Glucose (Fingerstick) 147 mg/dL (70-99) H 141 mg/dL (70-99) H 222 mg/dL (70-99) H 146 mg/dL (70-99) H Current Medications: Meds: Laboratory Tests Test 12/11/20 11:37 12/11/20 16:57 12/11/20 19:13 12/12/20 07:30 Glucose (Fingerstick) 147 mg/dL 141 mg/dL 222 mg/dL 146 mg/dL Current Medications Medications (Trade) Dose Ordered Sig/Leonides Route PRN Reason Start Time Stop Time Status Last Admin Dose Admin Multi-Ingredient Ointment (Analgesic [place]) 1 swathi PRN QID PRN TP MUSCLE PAIN 11/21/20 21:00 Al Hydroxide/Mg Hydroxide (Mylanta Plus Xs) 15 ml PRN AFTMEALHC PRN PO DYSPEPSIA 11/21/20 21:00 Magnesium Hydroxide (Milk Of Magnesia) 2,400 mg PRN QHS PRN PO 1ST CHOICE CONSTIPATION 11/21/20 21:00 Acetaminophen (Tylenol) 650 mg PRN Q4HRS PRN PO MILD PAIN / TEMP > 100.3'F 11/21/20 21:45 12/06/20 22:17 Amoxicillin/ Clavulanate Potassium (Augmentin 875/ 125mg) 1 tab BID PO 11/22/20 09:00 11/24/20 21:01 DC 11/24/20 20:55 Aspirin (Aspirin Enteric Coated) 81 mg DAILY PO 11/22/20 09:00 12/12/20 08:03 Bisacodyl (Dulcolax Tab) 5 mg PRN DAILY PRN PO 2ND CHOICE CONSTIPATION 11/21/20 21:45 Furosemide (Lasix) 40 mg DAILY PO 11/22/20 09:00 12/12/20 08:03 Acetaminophen/ Hydrocodone Bitart (Lortab 5/325) 1 tab PRN BID PRN PO mod-sev PAIN 11/21/20 21:45 12/08/20 17:03 DC 12/08/20 09:20 Ibuprofen (Motrin) 200 mg PRN Q6HRS PRN PO MILD PAIN / TEMP > 100.3'F 11/21/20 21:45 Cancel Albuterol/ Ipratropium (Duoneb) 3 ml PRN BID PRN NEB SHORTNESS OF BREATH 11/21/20 21:45 Levothyroxine Sodium (Synthroid) 112 mcg DAILY06 PO 11/22/20 06:00 12/12/20 05:02 Lorazepam (Ativan) 0.5 mg TID PO 11/21/20 22:00 12/03/20 18:47 DC 12/03/20 13:59 Zolpidem Tartrate (Ambien) 5 mg HS PO 11/21/20 22:00 11/27/20 18:02 DC 11/26/20 20:44 Betamethasone Dipropion Augmented (Betamethasone Dp Aug 0.05% Cream) 1 swathi PRN BID PRN TP RASH 11/21/20 22:15 Multi-Ingred Cream/Lotion/Oil/ Oint (Hydrocerin) 1 swathi PRN BID PRN TP Dry Hands 11/21/20 22:00 Guaifenesin (Robitussin Dm) 10 ml PRN Q8HRS PRN PO COUGH 11/21/20 22:00 Insulin Human Lispro (HumaLOG) 20 units TIDWMEALS SQ 11/22/20 08:00 12/12/20 08:09 Insulin Glargine (Lantus Syringe) 30 unit BID SQ 11/21/20 22:00 12/11/20 21:08 Magnesium Chloride (Mag Delay) 64 mg DAILY PO 11/22/20 09:00 12/12/20 08:02 Non-Formulary Medication (Menthol (Biofreeze)) 1 sawthi QID PRN TP MUSCLE PAIN 11/21/20 21:45 UNV Pantoprazole Sodium (Protonix) 40 mg DAILY PO 11/22/20 09:00 12/12/20 08:03 Oxybutynin Chloride (Ditropan) 5 mg DAILY PO 11/22/20 09:00 12/12/20 08:03 Polyethylene Glycol (miraLAX) 17 gm DAILY PO 11/22/20 09:00 12/12/20 08:02 Potassium Chloride (Klor-Con) 10 meq DAILY PO 11/22/20 09:00 12/12/20 08:02 Propranolol HCl (Inderal) 40 mg DAILY PO 11/22/20 09:00 12/12/20 08:03 Quetiapine Fumarate (SEROquel) 600 mg HS PO 11/21/20 22:15 12/03/20 18:47 DC 12/02/20 20:08 Saliva Substitute (Biotene Moisturizing Mouth) 2 spray PRN TID PRN PO DRY MOUTH 11/21/20 22:15 Non-Formulary Medication (Semaglutide (Ozempic)) 1 mg QFR SQ 11/23/20 16:00 12/09/20 10:20 DC Pentoxifylline (TRENtal) 400 mg TIDWMEALS PO 11/22/20 08:00 12/12/20 08:02 Vitamin D (Vitamin D3) 2,000 unit DAILY PO 11/22/20 09:00 12/12/20 08:02 Lactobacillus Rhamnosus (Culturelle) 1 cap BID PO 11/22/20 09:00 12/12/20 08:02 Mirtazapine (Remeron) 7.5 mg QHS PO 11/27/20 21:00 12/11/20 17:03 DC 12/10/20 20:08 Divalproex Sodium (Depakote Er) 500 mg QHS PO 11/28/20 21:00 12/01/20 17:12 DC 11/30/20 20:45 Divalproex Sodium (Depakote Er) 1,000 mg QHS PO 12/01/20 21:00 12/11/20 20:11 Bupropion HCl (Wellbutrin Xl) 150 mg DAILY PO 12/03/20 09:00 12/09/20 16:24 DC 12/09/20 08:14 Quetiapine Fumarate (SEROquel) 200 mg TID PO 12/03/20 21:00 12/06/20 11:47 DC 12/06/20 07:48 Clonazepam (KlonoPIN) 0.5 mg TID PO 12/03/20 21:00 12/12/20 08:05 Trazodone HCl (Desyrel) 100 mg PRN QHS PRN PO INSOMNIA, MAY REPEAT X1 12/04/20 19:15 12/12/20 00:26 Risperidone (RisperDAL) 0.5 mg 0900,1300,1700 PO 12/06/20 13:00 12/07/20 17:12 DC 12/07/20 09:00 Risperidone (RisperDAL) 1.5 mg DAILY PO 12/08/20 09:00 12/07/20 19:50 DC Risperidone (RisperDAL) 1.5 mg DAILY PO 12/07/20 20:00 12/09/20 16:24 DC 12/09/20 08:16 Acetaminophen/ Hydrocodone Bitart (Lortab 5/325) 1 tab PRN TID PRN PO mod-sev PAIN 12/08/20 17:00 12/11/20 20:11 Risperidone (RisperDAL) 2 mg DAILY PO 12/10/20 09:00 12/12/20 08:06 Mirtazapine (Remeron) 15 mg QHS PO 12/11/20 21:00 12/11/20 20:11 Current Medications Medications (Trade) Dose Ordered Sig/Leonides Route PRN Reason Start Time Stop Time Status Last Admin Dose Admin Mirtazapine (Remeron) 15 mg QHS PO 12/11/20 21:00 12/11/20 20:11 I have reviewed the current psychotropics carefully including drug interactions. Risk benefit ratio favors no change other than as noted in my dictated progress note. Diagnosis: Problems: (1) Mild cognitive impairment (2) Schizoaffective disorder, bipolar type (3) Anxiety disorder, unspecified (4) Intellectual disability (5) Impulse disorder, unspecified (6) Bipolar disorder, curr episode mixed, severe, with psychotic features RAJIV VELAZQUEZ MD Dec 12, 2020 08:41
--- NOTE | 2020-12-12 09:07 | PDOC ---
Exam Note: Donte Note: This note is a late entry for 12/11/2020 covers elements not covered in my initial note. Subjective: The patient was seen face to face in the evening of 12/11/2020 with Elizabeth COPELAND. Discussed with nursing staff, reviewed the chart. The patient slept 3 hours previous night. Per nursing report the patient has an awkward stare and nursing staff have changed the patients roommate out of the room because the roommate felt somewhat threatened by the patient. She refused her p.o. meds, took her Klonopin at 1 p.m. Review of Systems: No CV, , pulmonary, eye, ENT system symptoms on review. Mental Status Exam: The patient is reasonably oriented. Speech has some latency, coherent. Abstraction is fair. Computation is impaired. Language function is intact. Mood and affect somewhat withdrawn, slightly paranoid. No active suicidal or homicidal ideation. Laboratory Data: Reviewed. Impression: Schizoaffective disorder, bipolar type, mixed with psychotic features. Anxiety disorder unspecified. Impulse control disorder unspecified. Plan: Given her ongoing insomnia, increase Remeron from 7.5 mg h.s. to 15 mg h.s. Continue rest psychotropics unchanged. Assessment: Vital Signs/I&O: Vital Signs Date Time Temp Pulse Resp B/P (MAP) Pulse Ox O2 Delivery O2 Flow Rate FiO2 12/12/20 08:03 88 155/90 12/12/20 06:19 97.4 20 98 Room Air I & O 12/11/20 12/11/20 12/12/20 15:00 23:00 07:00 Intake Total 720 ml 480 ml Balance 720 ml 480 ml Labs: Laboratory Tests Test 12/11/20 11:37 12/11/20 16:57 12/11/20 19:13 12/12/20 07:30 Glucose (Fingerstick) 147 mg/dL (70-99) H 141 mg/dL (70-99) H 222 mg/dL (70-99) H 146 mg/dL (70-99) H Current Medications: Meds: Laboratory Tests Test 12/11/20 11:37 12/11/20 16:57 12/11/20 19:13 12/12/20 07:30 Glucose (Fingerstick) 147 mg/dL 141 mg/dL 222 mg/dL 146 mg/dL Current Medications Medications (Trade) Dose Ordered Sig/Leonides Route PRN Reason Start Time Stop Time Status Last Admin Dose Admin Multi-Ingredient Ointment (Analgesic [place]) 1 swathi PRN QID PRN TP MUSCLE PAIN 11/21/20 21:00 Al Hydroxide/Mg Hydroxide (Mylanta Plus Xs) 15 ml PRN AFTMEALHC PRN PO DYSPEPSIA 11/21/20 21:00 Magnesium Hydroxide (Milk Of Magnesia) 2,400 mg PRN QHS PRN PO 1ST CHOICE CONSTIPATION 11/21/20 21:00 Acetaminophen (Tylenol) 650 mg PRN Q4HRS PRN PO MILD PAIN / TEMP > 100.3'F 11/21/20 21:45 12/06/20 22:17 Amoxicillin/ Clavulanate Potassium (Augmentin 875/ 125mg) 1 tab BID PO 11/22/20 09:00 11/24/20 21:01 DC 11/24/20 20:55 Aspirin (Aspirin Enteric Coated) 81 mg DAILY PO 11/22/20 09:00 12/12/20 08:03 Bisacodyl (Dulcolax Tab) 5 mg PRN DAILY PRN PO 2ND CHOICE CONSTIPATION 11/21/20 21:45 Furosemide (Lasix) 40 mg DAILY PO 11/22/20 09:00 12/12/20 08:03 Acetaminophen/ Hydrocodone Bitart (Lortab 5/325) 1 tab PRN BID PRN PO mod-sev PAIN 11/21/20 21:45 12/08/20 17:03 DC 12/08/20 09:20 Ibuprofen (Motrin) 200 mg PRN Q6HRS PRN PO MILD PAIN / TEMP > 100.3'F 11/21/20 21:45 Cancel Albuterol/ Ipratropium (Duoneb) 3 ml PRN BID PRN NEB SHORTNESS OF BREATH 11/21/20 21:45 Levothyroxine Sodium (Synthroid) 112 mcg DAILY06 PO 11/22/20 06:00 12/12/20 05:02 Lorazepam (Ativan) 0.5 mg TID PO 11/21/20 22:00 12/03/20 18:47 DC 12/03/20 13:59 Zolpidem Tartrate (Ambien) 5 mg HS PO 11/21/20 22:00 11/27/20 18:02 DC 11/26/20 20:44 Betamethasone Dipropion Augmented (Betamethasone Dp Aug 0.05% Cream) 1 swathi PRN BID PRN TP RASH 11/21/20 22:15 Multi-Ingred Cream/Lotion/Oil/ Oint (Hydrocerin) 1 swathi PRN BID PRN TP Dry Hands 11/21/20 22:00 Guaifenesin (Robitussin Dm) 10 ml PRN Q8HRS PRN PO COUGH 11/21/20 22:00 Insulin Human Lispro (HumaLOG) 20 units TIDWMEALS SQ 11/22/20 08:00 12/12/20 08:09 Insulin Glargine (Lantus Syringe) 30 unit BID SQ 11/21/20 22:00 12/11/20 21:08 Magnesium Chloride (Mag Delay) 64 mg DAILY PO 11/22/20 09:00 12/12/20 08:02 Non-Formulary Medication (Menthol (Biofreeze)) 1 swathi QID PRN TP MUSCLE PAIN 11/21/20 21:45 UNV Pantoprazole Sodium (Protonix) 40 mg DAILY PO 11/22/20 09:00 12/12/20 08:03 Oxybutynin Chloride (Ditropan) 5 mg DAILY PO 11/22/20 09:00 12/12/20 08:03 Polyethylene Glycol (miraLAX) 17 gm DAILY PO 11/22/20 09:00 12/12/20 08:02 Potassium Chloride (Klor-Con) 10 meq DAILY PO 11/22/20 09:00 12/12/20 08:02 Propranolol HCl (Inderal) 40 mg DAILY PO 11/22/20 09:00 12/12/20 08:03 Quetiapine Fumarate (SEROquel) 600 mg HS PO 11/21/20 22:15 12/03/20 18:47 DC 12/02/20 20:08 Saliva Substitute (Biotene Moisturizing Mouth) 2 spray PRN TID PRN PO DRY MOUTH 11/21/20 22:15 Non-Formulary Medication (Semaglutide (Ozempic)) 1 mg QFR SQ 11/23/20 16:00 12/09/20 10:20 DC Pentoxifylline (TRENtal) 400 mg TIDWMEALS PO 11/22/20 08:00 12/12/20 08:02 Vitamin D (Vitamin D3) 2,000 unit DAILY PO 11/22/20 09:00 12/12/20 08:02 Lactobacillus Rhamnosus (Culturelle) 1 cap BID PO 11/22/20 09:00 12/12/20 08:02 Mirtazapine (Remeron) 7.5 mg QHS PO 11/27/20 21:00 12/11/20 17:03 DC 12/10/20 20:08 Divalproex Sodium (Depakote Er) 500 mg QHS PO 11/28/20 21:00 12/01/20 17:12 DC 11/30/20 20:45 Divalproex Sodium (Depakote Er) 1,000 mg QHS PO 12/01/20 21:00 12/11/20 20:11 Bupropion HCl (Wellbutrin Xl) 150 mg DAILY PO 12/03/20 09:00 12/09/20 16:24 DC 12/09/20 08:14 Quetiapine Fumarate (SEROquel) 200 mg TID PO 12/03/20 21:00 12/06/20 11:47 DC 12/06/20 07:48 Clonazepam (KlonoPIN) 0.5 mg TID PO 12/03/20 21:00 12/12/20 08:05 Trazodone HCl (Desyrel) 100 mg PRN QHS PRN PO INSOMNIA, MAY REPEAT X1 12/04/20 19:15 12/12/20 00:26 Risperidone (RisperDAL) 0.5 mg 0900,1300,1700 PO 12/06/20 13:00 12/07/20 17:12 DC 12/07/20 09:00 Risperidone (RisperDAL) 1.5 mg DAILY PO 12/08/20 09:00 12/07/20 19:50 DC Risperidone (RisperDAL) 1.5 mg DAILY PO 12/07/20 20:00 12/09/20 16:24 DC 12/09/20 08:16 Acetaminophen/ Hydrocodone Bitart (Lortab 5/325) 1 tab PRN TID PRN PO mod-sev PAIN 12/08/20 17:00 12/11/20 20:11 Risperidone (RisperDAL) 2 mg DAILY PO 12/10/20 09:00 12/12/20 08:06 Mirtazapine (Remeron) 15 mg QHS PO 12/11/20 21:00 12/11/20 20:11 Current Medications Medications (Trade) Dose Ordered Sig/Leonides Route PRN Reason Start Time Stop Time Status Last Admin Dose Admin Mirtazapine (Remeron) 15 mg QHS PO 12/11/20 21:00 12/11/20 20:11 I have reviewed the current psychotropics carefully including drug interactions. Risk benefit ratio favors no change other than as noted in my dictated progress note. Diagnosis: Problems: (1) Mild cognitive impairment (2) Schizoaffective disorder, bipolar type (3) Anxiety disorder, unspecified (4) Intellectual disability (5) Impulse disorder, unspecified (6) Bipolar disorder, curr episode mixed, severe, with psychotic features RAJIV VELAZQUEZ MD Dec 12, 2020 09:07
[2020-12-12] MEDS: INSULIN GLARGINE SYRINGE. SQ SCH ×2 (10:03→20:59)
[2020-12-12 16:01] VITALS: BP 124/78
[2020-12-12] MEDS: DIVALPROEX ER 500 MG TAB.ER.24H PO SCH (20:19)
[2020-12-12] MEDS: MIRTAZAPINE 15 MG TABLET PO SCH (20:19)
[2020-12-12] MEDS: HYDROcodone/APAP 5/325MG 1 TAB TABLET PO PRN (20:25)
--- NOTE | 2020-12-12 20:55 | PDOC ---
Exam Note: Donte Note: Please also refer to the separate dictated note~for this date of service dictated separately.~Patient seen individually. Discussed the patient with Nursing staff reviewed the chart.~Reviewed interim history and current functioning. Reviewed vital signs,~Labs/ Radiology~and current medications noted below. Continue current treatment with the changes noted in the dictated addendum note Assessment: Vital Signs/I&O: Vital Signs Date Time Temp Pulse Resp B/P (MAP) Pulse Ox O2 Delivery O2 Flow Rate FiO2 12/12/20 16:01 97.2 73 16 124/78 (93) 97 12/12/20 06:19 Room Air I & O 12/11/20 12/11/20 12/12/20 15:00 23:00 07:00 Intake Total 720 ml 480 ml Balance 720 ml 480 ml Labs: Laboratory Tests Test 12/12/20 07:30 12/12/20 11:56 12/12/20 17:00 12/12/20 19:08 Glucose (Fingerstick) 146 mg/dL (70-99) H 109 mg/dL (70-99) H 95 mg/dL (70-99) 171 mg/dL (70-99) H Current Medications: Meds: Laboratory Tests Test 12/12/20 07:30 12/12/20 11:56 12/12/20 17:00 12/12/20 19:08 Glucose (Fingerstick) 146 mg/dL 109 mg/dL 95 mg/dL 171 mg/dL Current Medications Medications (Trade) Dose Ordered Sig/Leonides Route PRN Reason Start Time Stop Time Status Last Admin Dose Admin Multi-Ingredient Ointment (Analgesic [place]) 1 swathi PRN QID PRN TP MUSCLE PAIN 11/21/20 21:00 Al Hydroxide/Mg Hydroxide (Mylanta Plus Xs) 15 ml PRN AFTMEALHC PRN PO DYSPEPSIA 11/21/20 21:00 Magnesium Hydroxide (Milk Of Magnesia) 2,400 mg PRN QHS PRN PO 1ST CHOICE CONSTIPATION 11/21/20 21:00 Acetaminophen (Tylenol) 650 mg PRN Q4HRS PRN PO MILD PAIN / TEMP > 100.3'F 11/21/20 21:45 12/06/20 22:17 Amoxicillin/ Clavulanate Potassium (Augmentin 875/ 125mg) 1 tab BID PO 11/22/20 09:00 1/16/21 21:01 DC 11/24/20 20:55 Aspirin (Aspirin Enteric Coated) 81 mg DAILY PO 11/22/20 09:00 12/12/20 08:03 Bisacodyl (Dulcolax Tab) 5 mg PRN DAILY PRN PO 2ND CHOICE CONSTIPATION 11/21/20 21:45 Furosemide (Lasix) 40 mg DAILY PO 11/22/20 09:00 12/12/20 08:03 Acetaminophen/ Hydrocodone Bitart (Lortab 5/325) 1 tab PRN BID PRN PO mod-sev PAIN 11/21/20 21:45 12/08/20 17:03 DC 12/08/20 09:20 Ibuprofen (Motrin) 200 mg PRN Q6HRS PRN PO MILD PAIN / TEMP > 100.3'F 11/21/20 21:45 Cancel Albuterol/ Ipratropium (Duoneb) 3 ml PRN BID PRN NEB SHORTNESS OF BREATH 11/21/20 21:45 Levothyroxine Sodium (Synthroid) 112 mcg DAILY06 PO 11/22/20 06:00 12/12/20 05:02 Lorazepam (Ativan) 0.5 mg TID PO 11/21/20 22:00 12/03/20 18:47 DC 12/03/20 13:59 Zolpidem Tartrate (Ambien) 5 mg HS PO 11/21/20 22:00 11/27/20 18:02 DC 11/26/20 20:44 Betamethasone Dipropion Augmented (Betamethasone Dp Aug 0.05% Cream) 1 swathi PRN BID PRN TP RASH 11/21/20 22:15 Multi-Ingred Cream/Lotion/Oil/ Oint (Hydrocerin) 1 swathi PRN BID PRN TP Dry Hands 11/21/20 22:00 Guaifenesin (Robitussin Dm) 10 ml PRN Q8HRS PRN PO COUGH 11/21/20 22:00 Insulin Human Lispro (HumaLOG) 20 units TIDWMEALS SQ 11/22/20 08:00 12/12/20 12:44 Insulin Glargine (Lantus Syringe) 30 unit BID SQ 11/21/20 22:00 12/12/20 10:03 Magnesium Chloride (Mag Delay) 64 mg DAILY PO 11/22/20 09:00 12/12/20 08:02 Non-Formulary Medication (Menthol (Biofreeze)) 1 swathi QID PRN TP MUSCLE PAIN 11/21/20 21:45 UNV Pantoprazole Sodium (Protonix) 40 mg DAILY PO 11/22/20 09:00 12/12/20 08:03 Oxybutynin Chloride (Ditropan) 5 mg DAILY PO 11/22/20 09:00 12/12/20 08:03 Polyethylene Glycol (miraLAX) 17 gm DAILY PO 11/22/20 09:00 12/12/20 08:02 Potassium Chloride (Klor-Con) 10 meq DAILY PO 11/22/20 09:00 12/12/20 08:02 Propranolol HCl (Inderal) 40 mg DAILY PO 11/22/20 09:00 12/12/20 08:03 Quetiapine Fumarate (SEROquel) 600 mg HS PO 11/21/20 22:15 12/03/20 18:47 DC 12/02/20 20:08 Saliva Substitute (Biotene Moisturizing Mouth) 2 spray PRN TID PRN PO DRY MOUTH 11/21/20 22:15 Non-Formulary Medication (Semaglutide (Ozempic)) 1 mg QFR SQ 11/23/20 16:00 12/09/20 10:20 DC Pentoxifylline (TRENtal) 400 mg TIDWMEALS PO 11/22/20 08:00 12/12/20 17:39 Vitamin D (Vitamin D3) 2,000 unit DAILY PO 11/22/20 09:00 12/12/20 08:02 Lactobacillus Rhamnosus (Culturelle) 1 cap BID PO 11/22/20 09:00 12/12/20 20:19 Mirtazapine (Remeron) 7.5 mg QHS PO 11/27/20 21:00 12/11/20 17:03 DC 12/10/20 20:08 Divalproex Sodium (Depakote Er) 500 mg QHS PO 11/28/20 21:00 12/01/20 17:12 DC 11/30/20 20:45 Divalproex Sodium (Depakote Er) 1,000 mg QHS PO 12/01/20 21:00 12/12/20 20:19 Bupropion HCl (Wellbutrin Xl) 150 mg DAILY PO 12/03/20 09:00 12/09/20 16:24 DC 12/09/20 08:14 Quetiapine Fumarate (SEROquel) 200 mg TID PO 12/03/20 21:00 12/06/20 11:47 DC 12/06/20 07:48 Clonazepam (KlonoPIN) 0.5 mg TID PO 12/03/20 21:00 12/12/20 20:19 Trazodone HCl (Desyrel) 100 mg PRN QHS PRN PO INSOMNIA, MAY REPEAT X1 12/04/20 19:15 12/12/20 20:19 Risperidone (RisperDAL) 0.5 mg 0900,1300,1700 PO 12/06/20 13:00 12/07/20 17:12 DC 12/07/20 09:00 Risperidone (RisperDAL) 1.5 mg DAILY PO 12/08/20 09:00 12/07/20 19:50 DC Risperidone (RisperDAL) 1.5 mg DAILY PO 12/07/20 20:00 12/09/20 16:24 DC 12/09/20 08:16 Acetaminophen/ Hydrocodone Bitart (Lortab 5/325) 1 tab PRN TID PRN PO mod-sev PAIN 12/08/20 17:00 12/12/20 20:25 Risperidone (RisperDAL) 2 mg DAILY PO 12/10/20 09:00 12/12/20 08:06 Mirtazapine (Remeron) 15 mg QHS PO 12/11/20 21:00 12/12/20 20:19 Current Medications Medications (Trade) Dose Ordered Sig/Leonides Route PRN Reason Start Time Stop Time Status Last Admin Dose Admin Mirtazapine (Remeron) 15 mg QHS PO 12/11/20 21:00 12/12/20 20:19 I have reviewed the current psychotropics carefully including drug interactions. Risk benefit ratio favors no change other than as noted in my dictated progress note. Diagnosis: Problems: (1) Mild cognitive impairment (2) Schizoaffective disorder, bipolar type (3) Anxiety disorder, unspecified (4) Intellectual disability (5) Impulse disorder, unspecified (6) Bipolar disorder, curr episode mixed, severe, with psychotic features CAROLINE,MAN M MD Dec 12, 2020 20:55
--- NOTE | 2020-12-12 22:39 | PN ---
DATE: 12/12/2020 PSYCHIATRIC PROGRESS NOTE This note covers elements not covered in my initial note 12/12/2020. SUBJECTIVE: I met with the patient evening of 12/12/2020 in her room. Discussed the patient with nursing staff, reviewed the chart. The patient slept 3 hours previous night. Per MIN Aden, the patient is compliant with the medication, does go to the dayroom for groups, less psychotic. REVIEW OF SYSTEMS: No CV, , pulmonary, eye, ENT system symptoms on review. MENTAL STATUS EXAM: Oriented to herself and situation. Speech has some latency, low in rate and rhythm, low in volume. Abstraction fair, computation impaired, language function intact, attention span fair. Mood and affect somewhat withdrawn. LABORATORY DATA: Reviewed. IMPRESSION: Schizoaffective disorder, bipolar type, mixed with psychotic features, in partial remission; anxiety disorder, unspecified. PLAN: Continue psychotropics from initial note. Reviewed risk/benefit ratio, drug interactions. Will make further adjustments in Risperdal as clinically indicated. MAN Tika VELAZQUEZ MD DR: MEÑO/candice JOB#: [id number] / [id number]
[2020-12-13] MEDS: LEVOTHYROXINE 112 MCG TABLET PO SCH (05:18)
[2020-12-13] MEDS: HYDROcodone/APAP 5/325MG 1 TAB TABLET PO PRN ×2 (05:19→20:45)
[2020-12-13 05:53] VITALS: BP 136/84
[2020-12-13] MEDS: INSULIN LISPRO 300 UNITS/3 ML VIAL. SQ SCH ×4 (08:00→17:00)
[2020-12-13] MEDS: POLYETHYLENE GLYCOL 3350 17 GM PACKET. PO SCH (09:00)
[2020-12-13] MEDS: MAGNESIUM CHLORIDE ER 64 MG TABLET.ER PO SCH (09:27)
[2020-12-13] MEDS: OXYBUTYNIN CHLORIDE 5 MG TABLET PO SCH (09:27)
[2020-12-13] MEDS: ASPIRIN ENTERIC COATED 81 MG TABLET.DR. PO SCH (09:27)
[2020-12-13] MEDS: POTASSIUM CHLORIDE 10 MEQ TABLET.ER. PO SCH (09:27)
[2020-12-13] MEDS: PANTOPRAZOLE 40 MG TABLET. PO SCH (09:27)
[2020-12-13] MEDS: LACTOBACILLUS RHAMNOSUS GG 1 CAPSULE. PO SCH ×2 (09:27→20:45)
[2020-12-13] MEDS: PROPRANOLOL 20 MG TABLET. PO SCH (09:28)
[2020-12-13] MEDS: FUROSEMIDE 40 MG TABLET PO SCH (09:28)
[2020-12-13] MEDS: PENTOXIFYLLINE ER 400 MG TABLET.ER. PO SCH ×3 (09:28→17:09)
[2020-12-13] MEDS: CHOLECALCIFEROL (VITAMIN D3) 1,000 UNIT TABLET PO SCH (09:28)
[2020-12-13] MEDS: risperiDONE ORAL 1 MG/ML 30ml BOTTLE. PO SCH (09:29)
[2020-12-13] MEDS: clonazePAM 0.5 MG TABLET PO SCH ×3 (09:33→20:44)
[2020-12-13] MEDS: INSULIN GLARGINE SYRINGE. SQ SCH ×2 (09:52→20:57)
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
[2020-12-13 15:57] VITALS: BP 117/77
[2020-12-13] MEDS: traZODone 100 MG TABLET. PO PRN (20:45)
[2020-12-13] MEDS: MIRTAZAPINE 15 MG TABLET PO SCH (20:45)
[2020-12-13] MEDS: DIVALPROEX ER 500 MG TAB.ER.24H PO SCH (20:45)
--- NOTE | 2020-12-13 21:03 | PDOC ---
Exam Note: Donte Note: Please also refer to the separate dictated note~for this date of service dictated separately.~Patient seen individually. Discussed the patient with Nursing staff reviewed the chart.~Reviewed interim history and current functioning. Reviewed vital signs,~Labs/ Radiology~and current medications noted below. Continue current treatment with the changes noted in the dictated addendum note Assessment: Vital Signs/I&O: Vital Signs Date Time Temp Pulse Resp B/P (MAP) Pulse Ox O2 Delivery O2 Flow Rate FiO2 12/13/20 20:45 98 12/13/20 15:57 97.2 69 16 117/77 (90) 12/12/20 06:19 Room Air I & O 12/12/20 12/12/20 12/13/20 15:00 23:00 07:00 Intake Total 440 ml 600 ml Balance 440 ml 600 ml Labs: Laboratory Tests Test 12/13/20 07:45 12/13/20 12:06 12/13/20 16:56 12/13/20 18:59 Glucose (Fingerstick) 104 mg/dL (70-99) H 308 mg/dL (70-99) H 69 mg/dL (70-99) L 153 mg/dL (70-99) H Current Medications: Meds: Laboratory Tests Test 12/13/20 07:45 12/13/20 12:06 12/13/20 16:56 12/13/20 18:59 Glucose (Fingerstick) 104 mg/dL 308 mg/dL 69 mg/dL 153 mg/dL Current Medications Medications (Trade) Dose Ordered Sig/Leonides Route PRN Reason Start Time Stop Time Status Last Admin Dose Admin Multi-Ingredient Ointment (Analgesic [place]) 1 swathi PRN QID PRN TP MUSCLE PAIN 11/21/20 21:00 Al Hydroxide/Mg Hydroxide (Mylanta Plus Xs) 15 ml PRN AFTMEALHC PRN PO DYSPEPSIA 11/21/20 21:00 Magnesium Hydroxide (Milk Of Magnesia) 2,400 mg PRN QHS PRN PO 1ST CHOICE CONSTIPATION 11/21/20 21:00 Acetaminophen (Tylenol) 650 mg PRN Q4HRS PRN PO MILD PAIN / TEMP > 100.3'F 11/21/20 21:45 12/06/20 22:17 Amoxicillin/ Clavulanate Potassium (Augmentin 875/ 125mg) 1 tab BID PO 11/22/20 09:00 11/24/20 21:01 DC 11/24/20 20:55 Aspirin (Aspirin Enteric Coated) 81 mg DAILY PO 11/22/20 09:00 12/13/20 09:27 Bisacodyl (Dulcolax Tab) 5 mg PRN DAILY PRN PO 2ND CHOICE CONSTIPATION 11/21/20 21:45 Furosemide (Lasix) 40 mg DAILY PO 11/22/20 09:00 12/13/20 09:28 Acetaminophen/ Hydrocodone Bitart (Lortab 5/325) 1 tab PRN BID PRN PO mod-sev PAIN 11/21/20 21:45 12/08/20 17:03 DC 12/08/20 09:20 Ibuprofen (Motrin) 200 mg PRN Q6HRS PRN PO MILD PAIN / TEMP > 100.3'F 11/21/20 21:45 Cancel Albuterol/ Ipratropium (Duoneb) 3 ml PRN BID PRN NEB SHORTNESS OF BREATH 11/21/20 21:45 Levothyroxine Sodium (Synthroid) 112 mcg DAILY06 PO 11/22/20 06:00 12/13/20 05:18 Lorazepam (Ativan) 0.5 mg TID PO 11/21/20 22:00 12/03/20 18:47 DC 12/03/20 13:59 Zolpidem Tartrate (Ambien) 5 mg HS PO 11/21/20 22:00 11/27/20 18:02 DC 11/26/20 20:44 Betamethasone Dipropion Augmented (Betamethasone Dp Aug 0.05% Cream) 1 swathi PRN BID PRN TP RASH 11/21/20 22:15 Multi-Ingred Cream/Lotion/Oil/ Oint (Hydrocerin) 1 swathi PRN BID PRN TP Dry Hands 11/21/20 22:00 Guaifenesin (Robitussin Dm) 10 ml PRN Q8HRS PRN PO COUGH 11/21/20 22:00 Insulin Human Lispro (HumaLOG) 20 units TIDWMEALS SQ 11/22/20 08:00 12/13/20 12:24 Insulin Glargine (Lantus Syringe) 30 unit BID SQ 11/21/20 22:00 12/13/20 09:52 Magnesium Chloride (Mag Delay) 64 mg DAILY PO 11/22/20 09:00 12/13/20 09:27 Non-Formulary Medication (Menthol (Biofreeze)) 1 swathi QID PRN TP MUSCLE PAIN 11/21/20 21:45 UNV Pantoprazole Sodium (Protonix) 40 mg DAILY PO 11/22/20 09:00 12/13/20 09:27 Oxybutynin Chloride (Ditropan) 5 mg DAILY PO 11/22/20 09:00 12/13/20 09:27 Polyethylene Glycol (miraLAX) 17 gm DAILY PO 11/22/20 09:00 12/12/20 08:02 Potassium Chloride (Klor-Con) 10 meq DAILY PO 11/22/20 09:00 12/13/20 09:27 Propranolol HCl (Inderal) 40 mg DAILY PO 11/22/20 09:00 12/13/20 09:28 Quetiapine Fumarate (SEROquel) 600 mg HS PO 11/21/20 22:15 12/03/20 18:47 DC 12/02/20 20:08 Saliva Substitute (Biotene Moisturizing Mouth) 2 spray PRN TID PRN PO DRY MOUTH 11/21/20 22:15 Non-Formulary Medication (Semaglutide (Ozempic)) 1 mg QFR SQ 11/23/20 16:00 12/09/20 10:20 DC Pentoxifylline (TRENtal) 400 mg TIDWMEALS PO 11/22/20 08:00 12/13/20 17:09 Vitamin D (Vitamin D3) 2,000 unit DAILY PO 11/22/20 09:00 12/13/20 09:28 Lactobacillus Rhamnosus (Culturelle) 1 cap BID PO 11/22/20 09:00 12/13/20 20:45 Mirtazapine (Remeron) 7.5 mg QHS PO 11/27/20 21:00 12/11/20 17:03 DC 12/10/20 20:08 Divalproex Sodium (Depakote Er) 500 mg QHS PO 11/28/20 21:00 12/01/20 17:12 DC 11/30/20 20:45 Divalproex Sodium (Depakote Er) 1,000 mg QHS PO 12/01/20 21:00 2/4/21 20:45 Bupropion HCl (Wellbutrin Xl) 150 mg DAILY PO 12/03/20 09:00 12/09/20 16:24 DC 12/09/20 08:14 Quetiapine Fumarate (SEROquel) 200 mg TID PO 12/03/20 21:00 12/06/20 11:47 DC 12/06/20 07:48 Clonazepam (KlonoPIN) 0.5 mg TID PO 12/03/20 21:00 12/13/20 20:44 Trazodone HCl (Desyrel) 100 mg PRN QHS PRN PO INSOMNIA, MAY REPEAT X1 12/04/20 19:15 12/13/20 20:45 Risperidone (RisperDAL) 0.5 mg 0900,1300,1700 PO 12/06/20 13:00 12/07/20 17:12 DC 12/07/20 09:00 Risperidone (RisperDAL) 1.5 mg DAILY PO 12/08/20 09:00 12/07/20 19:50 DC Risperidone (RisperDAL) 1.5 mg DAILY PO 12/07/20 20:00 12/09/20 16:24 DC 12/09/20 08:16 Acetaminophen/ Hydrocodone Bitart (Lortab 5/325) 1 tab PRN TID PRN PO mod-sev PAIN 12/08/20 17:00 12/13/20 20:45 Risperidone (RisperDAL) 2 mg DAILY PO 12/10/20 09:00 12/13/20 12:47 DC 12/13/20 09:29 Mirtazapine (Remeron) 15 mg QHS PO 12/11/20 21:00 12/13/20 20:45 Risperidone (RisperDAL) 3 mg DAILY PO 12/14/20 09:00 Risperidone (RisperDAL CONSTA) 25 mg Q2WKS IM 12/14/20 09:00 I have reviewed the current psychotropics carefully including drug interactions. Risk benefit ratio favors no change other than as noted in my dictated progress note. Diagnosis: Problems: (1) Mild cognitive impairment (2) Schizoaffective disorder, bipolar type (3) Anxiety disorder, unspecified (4) Intellectual disability (5) Impulse disorder, unspecified (6) Bipolar disorder, curr episode mixed, severe, with psychotic features RAJIV VELAZQUEZ MD Dec 13, 2020 21:03
[2020-12-14] MEDS: POLYETHYLENE GLYCOL 3350 17 GM PACKET. PO SCH (05:46)
[2020-12-14] MEDS: LEVOTHYROXINE 112 MCG TABLET PO SCH (05:46)
[2020-12-14] MEDS: FUROSEMIDE 40 MG TABLET PO SCH (05:47)
[2020-12-14] MEDS: PENTOXIFYLLINE ER 400 MG TABLET.ER. PO SCH ×3 (05:47→17:20)
[2020-12-14] MEDS: POTASSIUM CHLORIDE 10 MEQ TABLET.ER. PO SCH (05:47)
[2020-12-14] MEDS: MAGNESIUM CHLORIDE ER 64 MG TABLET.ER PO SCH (05:47)
[2020-12-14] MEDS: HYDROcodone/APAP 5/325MG 1 TAB TABLET PO PRN ×2 (05:47→12:38)
[2020-12-14] MEDS: CHOLECALCIFEROL (VITAMIN D3) 1,000 UNIT TABLET PO SCH (05:47)
[2020-12-14] MEDS: LACTOBACILLUS RHAMNOSUS GG 1 CAPSULE. PO SCH ×2 (05:48→20:09)
[2020-12-14] MEDS: OXYBUTYNIN CHLORIDE 5 MG TABLET PO SCH (05:48)
[2020-12-14] MEDS: PANTOPRAZOLE 40 MG TABLET. PO SCH (05:48)
[2020-12-14] MEDS: ASPIRIN ENTERIC COATED 81 MG TABLET.DR. PO SCH (05:48)
[2020-12-14] MEDS: clonazePAM 0.5 MG TABLET PO SCH ×3 (05:50→20:10)
[2020-12-14] MEDS: PROPRANOLOL 20 MG TABLET. PO SCH (05:51)
[2020-12-14 06:12] VITALS: BP 134/80
[2020-12-14] MEDS: risperiDONE ORAL 1 MG/ML 30ml BOTTLE. PO SCH (09:02)
[2020-12-14] MEDS: INSULIN GLARGINE SYRINGE. SQ SCH ×2 (09:03→20:12)
[2020-12-14] MEDS: INSULIN LISPRO 300 UNITS/3 ML VIAL. SQ SCH ×3 (09:07→17:00)
[2020-12-14] MEDS: risperiDONE MICROSPHERES 25 MG/2 ML DISP.SYRIN. IM SCH (09:35)
[2020-12-14 15:50] VITALS: BP 140/80
[2020-12-14] MEDS: MIRTAZAPINE 15 MG TABLET PO SCH (20:10)
[2020-12-14] MEDS: traZODone 100 MG TABLET. PO PRN (20:10)
[2020-12-14] MEDS: DIVALPROEX ER 500 MG TAB.ER.24H PO SCH (20:10)
--- NOTE | 2020-12-14 20:50 | PDOC ---
Exam Note: Donte Note: Please also refer to the separate dictated note~for this date of service dictated separately.~Patient seen individually. Discussed the patient with Nursing staff reviewed the chart.~Reviewed interim history and current functioning. Reviewed vital signs,~Labs/ Radiology~and current medications noted below. Continue current treatment with the changes noted in the dictated addendum note Assessment: Vital Signs/I&O: Vital Signs Date Time Temp Pulse Resp B/P (MAP) Pulse Ox O2 Delivery O2 Flow Rate FiO2 12/14/20 15:50 97.4 77 20 140/80 (100) 98 12/12/20 06:19 Room Air I & O 12/13/20 12/13/20 12/14/20 15:00 23:00 07:00 Intake Total 960 ml 600 ml Balance 960 ml 600 ml Labs: Laboratory Tests Test 12/14/20 07:31 12/14/20 11:23 12/14/20 16:42 12/14/20 19:20 Glucose (Fingerstick) 113 mg/dL (70-99) H 145 mg/dL (70-99) H 56 mg/dL (70-99) L 167 mg/dL (70-99) H Current Medications: Meds: Current Medications Medications (Trade) Dose Ordered Sig/Leonides Route PRN Reason Start Time Stop Time Status Last Admin Dose Admin Risperidone (RisperDAL) 3 mg DAILY PO 12/14/20 09:00 12/14/20 09:02 Risperidone (RisperDAL CONSTA) 25 mg Q2WKS IM 12/14/20 09:00 12/14/20 09:35 I have reviewed the current psychotropics carefully including drug interactions. Risk benefit ratio favors no change other than as noted in my dictated progress note. Diagnosis: Problems: (1) Mild cognitive impairment (2) Schizoaffective disorder, bipolar type (3) Anxiety disorder, unspecified (4) Intellectual disability (5) Impulse disorder, unspecified (6) Bipolar disorder, curr episode mixed, severe, with psychotic features RAJIV VELAZQUEZ MD Dec 14, 2020 20:50
[2020-12-15] MEDS: ASPIRIN ENTERIC COATED 81 MG TABLET.DR. PO SCH (05:07)
[2020-12-15] MEDS: LEVOTHYROXINE 112 MCG TABLET PO SCH (05:07)
[2020-12-15] MEDS: OXYBUTYNIN CHLORIDE 5 MG TABLET PO SCH (05:07)
[2020-12-15] MEDS: LACTOBACILLUS RHAMNOSUS GG 1 CAPSULE. PO SCH ×2 (05:08→20:04)
[2020-12-15] MEDS: PENTOXIFYLLINE ER 400 MG TABLET.ER. PO SCH ×4 (05:08→17:06)
[2020-12-15] MEDS: POLYETHYLENE GLYCOL 3350 17 GM PACKET. PO SCH (05:08)
[2020-12-15] MEDS: POTASSIUM CHLORIDE 10 MEQ TABLET.ER. PO SCH (05:08)
[2020-12-15] MEDS: MAGNESIUM CHLORIDE ER 64 MG TABLET.ER PO SCH (05:09)
[2020-12-15] MEDS: FUROSEMIDE 40 MG TABLET PO SCH (05:10)
[2020-12-15] MEDS: CHOLECALCIFEROL (VITAMIN D3) 1,000 UNIT TABLET PO SCH (05:10)
[2020-12-15] MEDS: PANTOPRAZOLE 40 MG TABLET. PO SCH (05:10)
[2020-12-15] MEDS: risperiDONE ORAL 1 MG/ML 30ml BOTTLE. PO SCH (05:12)
[2020-12-15 06:22] VITALS: BP 126/76
--- NOTE | 2020-12-15 07:10 | PDOC ---
Exam Note: Donte Note: This note is a late entry for 12/13/2020 covers elements not covered in my initial note. Subjective: The patient was seen face to face in the morning of 12/13/2020 for a treatment team meeting with Reyna Mccoy, Cande Serrato and Marixa (healthcare social worker), Yvonne Chen, activity therapy and Estela COPELAND, reviewed the chart. The patient slept 2-1/2 hours previous night. Often refusing medications, became agitated with nursing staff, grabbed the hand of nursing staff, slammed the pill cup onto the table, refused her insulin. She seems to have a rather disconcerting stare as part of her psychosis. Review of Systems: No CV, , pulmonary, eye, ENT system symptoms on review. Mental Status Exam: The patient is reasonably oriented. She is not very verbally interactive, somewhat withdrawn, paranoid, suspicious, and distractible. Speech has some latency, coherent. Abstraction is fair. Computation is impaired. Language function is intact. Mood and affect somewhat withdrawn, slightly paranoid. No suicidal or homicidal ideation. Laboratory Data: Reviewed. Impression: Schizoaffective disorder, bipolar type, mixed with psychotic features. Anxiety disorder unspecified. Impulse control disorder unspecified. Plan: The patient is non-compliant with her psychotropics. We will start her on Risperdal Consta 25 mg IM q.2 weeks. Increase the daily Risperdal from 2 mg to 3 mg a day. Adjust further as clinically indicated. Assessment: Vital Signs/I&O: Vital Signs Date Time Temp Pulse Resp B/P (MAP) Pulse Ox O2 Delivery O2 Flow Rate FiO2 12/15/20 06:22 97.6 74 14 126/76 (93) 97 12/12/20 06:19 Room Air I & O 12/14/20 12/14/20 12/15/20 15:00 23:00 07:00 Intake Total 480 ml 600 ml Balance 480 ml 600 ml Labs: Laboratory Tests Test 12/14/20 07:31 12/14/20 11:23 12/14/20 16:42 12/14/20 19:20 Glucose (Fingerstick) 113 mg/dL (70-99) H 145 mg/dL (70-99) H 56 mg/dL (70-99) L 167 mg/dL (70-99) H Current Medications: Meds: Laboratory Tests Test 12/14/20 07:31 12/14/20 11:23 12/14/20 16:42 12/14/20 19:20 Glucose (Fingerstick) 113 mg/dL 145 mg/dL 56 mg/dL 167 mg/dL Current Medications Medications (Trade) Dose Ordered Sig/Leonides Route PRN Reason Start Time Stop Time Status Last Admin Dose Admin Multi-Ingredient Ointment (Analgesic [place]) 1 swathi PRN QID PRN TP MUSCLE PAIN 11/21/20 21:00 Al Hydroxide/Mg Hydroxide (Mylanta Plus Xs) 15 ml PRN AFTMEALHC PRN PO DYSPEPSIA 11/21/20 21:00 Magnesium Hydroxide (Milk Of Magnesia) 2,400 mg PRN QHS PRN PO 1ST CHOICE CONSTIPATION 11/21/20 21:00 Acetaminophen (Tylenol) 650 mg PRN Q4HRS PRN PO MILD PAIN / TEMP > 100.3'F 11/21/20 21:45 12/06/20 22:17 Amoxicillin/ Clavulanate Potassium (Augmentin 875/ 125mg) 1 tab BID PO 11/22/20 09:00 11/24/20 21:01 DC 11/24/20 20:55 Aspirin (Aspirin Enteric Coated) 81 mg DAILY PO 11/22/20 09:00 12/15/20 05:07 Bisacodyl (Dulcolax Tab) 5 mg PRN DAILY PRN PO 2ND CHOICE CONSTIPATION 11/21/20 21:45 Furosemide (Lasix) 40 mg DAILY PO 11/22/20 09:00 12/15/20 05:10 Acetaminophen/ Hydrocodone Bitart (Lortab 5/325) 1 tab PRN BID PRN PO mod-sev PAIN 11/21/20 21:45 12/08/20 17:03 DC 12/08/20 09:20 Ibuprofen (Motrin) 200 mg PRN Q6HRS PRN PO MILD PAIN / TEMP > 100.3'F 11/21/20 21:45 Cancel Albuterol/ Ipratropium (Duoneb) 3 ml PRN BID PRN NEB SHORTNESS OF BREATH 11/21/20 21:45 Levothyroxine Sodium (Synthroid) 112 mcg DAILY06 PO 11/22/20 06:00 12/15/20 05:07 Lorazepam (Ativan) 0.5 mg TID PO 11/21/20 22:00 12/03/20 18:47 DC 12/03/20 13:59 Zolpidem Tartrate (Ambien) 5 mg HS PO 11/21/20 22:00 11/27/20 18:02 DC 11/26/20 20:44 Betamethasone Dipropion Augmented (Betamethasone Dp Aug 0.05% Cream) 1 swathi PRN BID PRN TP RASH 11/21/20 22:15 Multi-Ingred Cream/Lotion/Oil/ Oint (Hydrocerin) 1 swathi PRN BID PRN TP Dry Hands 11/21/20 22:00 Guaifenesin (Robitussin Dm) 10 ml PRN Q8HRS PRN PO COUGH 11/21/20 22:00 Insulin Human Lispro (HumaLOG) 20 units TIDWMEALS SQ 11/22/20 08:00 12/14/20 12:15 Insulin Glargine (Lantus Syringe) 30 unit BID SQ 11/21/20 22:00 12/14/20 20:12 Magnesium Chloride (Mag Delay) 64 mg DAILY PO 11/22/20 09:00 12/15/20 05:09 Non-Formulary Medication (Menthol (Biofreeze)) 1 swathi QID PRN TP MUSCLE PAIN 11/21/20 21:45 UNV Pantoprazole Sodium (Protonix) 40 mg DAILY PO 11/22/20 09:00 12/15/20 05:10 Oxybutynin Chloride (Ditropan) 5 mg DAILY PO 11/22/20 09:00 12/15/20 05:07 Polyethylene Glycol (miraLAX) 17 gm DAILY PO 11/22/20 09:00 12/15/20 05:08 Potassium Chloride (Klor-Con) 10 meq DAILY PO 11/22/20 09:00 12/15/20 05:08 Propranolol HCl (Inderal) 40 mg DAILY PO 11/22/20 09:00 12/14/20 05:51 Quetiapine Fumarate (SEROquel) 600 mg HS PO 11/21/20 22:15 12/03/20 18:47 DC 12/02/20 20:08 Saliva Substitute (Biotene Moisturizing Mouth) 2 spray PRN TID PRN PO DRY MOUTH 11/21/20 22:15 Non-Formulary Medication (Semaglutide (Ozempic)) 1 mg QFR SQ 11/23/20 16:00 12/09/20 10:20 DC Pentoxifylline (TRENtal) 400 mg TIDWMEALS PO 11/22/20 08:00 12/15/20 05:08 Vitamin D (Vitamin D3) 2,000 unit DAILY PO 11/22/20 09:00 12/15/20 05:10 Lactobacillus Rhamnosus (Culturelle) 1 cap BID PO 11/22/20 09:00 12/15/20 05:08 Mirtazapine (Remeron) 7.5 mg QHS PO 11/27/20 21:00 12/11/20 17:03 DC 12/10/20 20:08 Divalproex Sodium (Depakote Er) 500 mg QHS PO 11/28/20 21:00 12/01/20 17:12 DC 11/30/20 20:45 Divalproex Sodium (Depakote Er) 1,000 mg QHS PO 12/01/20 21:00 12/14/20 20:10 Bupropion HCl (Wellbutrin Xl) 150 mg DAILY PO 12/03/20 09:00 12/09/20 16:24 DC 12/09/20 08:14 Quetiapine Fumarate (SEROquel) 200 mg TID PO 12/03/20 21:00 12/06/20 11:47 DC 12/06/20 07:48 Clonazepam (KlonoPIN) 0.5 mg TID PO 12/03/20 21:00 12/14/20 20:10 Trazodone HCl (Desyrel) 100 mg PRN QHS PRN PO INSOMNIA, MAY REPEAT X1 12/04/20 19:15 12/14/20 20:10 Risperidone (RisperDAL) 0.5 mg 0900,1300,1700 PO 12/06/20 13:00 12/07/20 17:12 DC 12/07/20 09:00 Risperidone (RisperDAL) 1.5 mg DAILY PO 12/08/20 09:00 12/07/20 19:50 DC Risperidone (RisperDAL) 1.5 mg DAILY PO 12/07/20 20:00 12/09/20 16:24 DC 12/09/20 08:16 Acetaminophen/ Hydrocodone Bitart (Lortab 5/325) 1 tab PRN TID PRN PO mod-sev PAIN 12/08/20 17:00 12/14/20 12:38 Risperidone (RisperDAL) 2 mg DAILY PO 12/10/20 09:00 12/13/20 12:47 DC 12/13/20 09:29 Mirtazapine (Remeron) 15 mg QHS PO 12/11/20 21:00 12/14/20 20:10 Risperidone (RisperDAL) 3 mg DAILY PO 12/14/20 09:00 12/15/20 05:12 Risperidone (RisperDAL CONSTA) 25 mg Q2WKS IM 12/14/20 09:00 12/14/20 09:35 Current Medications Medications (Trade) Dose Ordered Sig/Leonides Route PRN Reason Start Time Stop Time Status Last Admin Dose Admin Risperidone (RisperDAL) 3 mg DAILY PO 12/14/20 09:00 12/15/20 05:12 Risperidone (RisperDAL CONSTA) 25 mg Q2WKS IM 12/14/20 09:00 12/14/20 09:35 I have reviewed the current psychotropics carefully including drug interactions. Risk benefit ratio favors no change other than as noted in my dictated progress note. Diagnosis: Problems: (1) Mild cognitive impairment (2) Schizoaffective disorder, bipolar type (3) Anxiety disorder, unspecified (4) Intellectual disability (5) Impulse disorder, unspecified (6) Bipolar disorder, curr episode mixed, severe, with psychotic features RAJIV VELAZQUEZ MD Dec 15, 2020 07:10
--- NOTE | 2020-12-15 07:33 | PDOC ---
Exam Note: Donte Note: This note is a late entry for 12/14/2020 covers elements not covered in my initial note. Subjective: The patient was seen face to face in the evening of 12/14/2020 with Estela COPELAND. Discussed with nursing staff, reviewed the chart. The patient slept 7-1/2 hours previous night. She was somewhat labile and angry in the morning, took her insulin. Later she was growling and baring her teeth at the nursing staff because she was not given the Kleenex she wanted in a timely manner according to her. She seems to have a rather disconcerting gaze as before. She remains paranoid. Review of Systems: No CV, , pulmonary, eye, ENT system symptoms on review. Mental Status Exam: The patient is reasonably oriented. Speech moderate to marked latency. Often response is monosyllabic. Abstraction is fair. Computation is impaired. Language function is intact. Attention span is short. Mood and affect withdrawn. Laboratory Data: Reviewed. Impression: Schizoaffective disorder, bipolar type, mixed with psychotic features. Anxiety disorder unspecified. Impulse control disorder unspecified. Plan: The patients Risperdal oral has been increased and she has been started on Risperdal Consta. Maintain rest of the psychotropics unchanged. Assessment: Vital Signs/I&O: Vital Signs Date Time Temp Pulse Resp B/P (MAP) Pulse Ox O2 Delivery O2 Flow Rate FiO2 12/15/20 06:22 97.6 74 14 126/76 (93) 97 12/12/20 06:19 Room Air I & O 12/14/20 12/14/20 12/15/20 15:00 23:00 07:00 Intake Total 480 ml 600 ml Balance 480 ml 600 ml Labs: Laboratory Tests Test 12/14/20 11:23 12/14/20 16:42 12/14/20 19:20 Glucose (Fingerstick) 145 mg/dL (70-99) H 56 mg/dL (70-99) L 167 mg/dL (70-99) H Current Medications: Meds: Laboratory Tests Test 12/14/20 11:23 12/14/20 16:42 12/14/20 19:20 Glucose (Fingerstick) 145 mg/dL 56 mg/dL 167 mg/dL Current Medications Medications (Trade) Dose Ordered Sig/Leonides Route PRN Reason Start Time Stop Time Status Last Admin Dose Admin Multi-Ingredient Ointment (Analgesic [place]) 1 swathi PRN QID PRN TP MUSCLE PAIN 11/21/20 21:00 Al Hydroxide/Mg Hydroxide (Mylanta Plus Xs) 15 ml PRN AFTMEALHC PRN PO DYSPEPSIA 11/21/20 21:00 Magnesium Hydroxide (Milk Of Magnesia) 2,400 mg PRN QHS PRN PO 1ST CHOICE CONSTIPATION 11/21/20 21:00 Acetaminophen (Tylenol) 650 mg PRN Q4HRS PRN PO MILD PAIN / TEMP > 100.3'F 11/21/20 21:45 12/06/20 22:17 Amoxicillin/ Clavulanate Potassium (Augmentin 875/ 125mg) 1 tab BID PO 11/22/20 09:00 11/24/20 21:01 DC 11/24/20 20:55 Aspirin (Aspirin Enteric Coated) 81 mg DAILY PO 11/22/20 09:00 12/15/20 05:07 Bisacodyl (Dulcolax Tab) 5 mg PRN DAILY PRN PO 2ND CHOICE CONSTIPATION 11/21/20 21:45 Furosemide (Lasix) 40 mg DAILY PO 11/22/20 09:00 12/15/20 05:10 Acetaminophen/ Hydrocodone Bitart (Lortab 5/325) 1 tab PRN BID PRN PO mod-sev PAIN 11/21/20 21:45 12/08/20 17:03 DC 12/08/20 09:20 Ibuprofen (Motrin) 200 mg PRN Q6HRS PRN PO MILD PAIN / TEMP > 100.3'F 11/21/20 21:45 Cancel Albuterol/ Ipratropium (Duoneb) 3 ml PRN BID PRN NEB SHORTNESS OF BREATH 11/21/20 21:45 Levothyroxine Sodium (Synthroid) 112 mcg DAILY06 PO 11/22/20 06:00 12/15/20 05:07 Lorazepam (Ativan) 0.5 mg TID PO 11/21/20 22:00 12/03/20 18:47 DC 12/03/20 13:59 Zolpidem Tartrate (Ambien) 5 mg HS PO 11/21/20 22:00 11/27/20 18:02 DC 11/26/20 20:44 Betamethasone Dipropion Augmented (Betamethasone Dp Aug 0.05% Cream) 1 swathi PRN BID PRN TP RASH 11/21/20 22:15 Multi-Ingred Cream/Lotion/Oil/ Oint (Hydrocerin) 1 swathi PRN BID PRN TP Dry Hands 11/21/20 22:00 Guaifenesin (Robitussin Dm) 10 ml PRN Q8HRS PRN PO COUGH 11/21/20 22:00 Insulin Human Lispro (HumaLOG) 20 units TIDWMEALS SQ 11/22/20 08:00 12/14/20 12:15 Insulin Glargine (Lantus Syringe) 30 unit BID SQ 11/21/20 22:00 12/14/20 20:12 Magnesium Chloride (Mag Delay) 64 mg DAILY PO 11/22/20 09:00 12/15/20 05:09 Non-Formulary Medication (Menthol (Biofreeze)) 1 swathi QID PRN TP MUSCLE PAIN 11/21/20 21:45 UNV Pantoprazole Sodium (Protonix) 40 mg DAILY PO 11/22/20 09:00 12/15/20 05:10 Oxybutynin Chloride (Ditropan) 5 mg DAILY PO 11/22/20 09:00 12/15/20 05:07 Polyethylene Glycol (miraLAX) 17 gm DAILY PO 11/22/20 09:00 12/15/20 05:08 Potassium Chloride (Klor-Con) 10 meq DAILY PO 11/22/20 09:00 12/15/20 05:08 Propranolol HCl (Inderal) 40 mg DAILY PO 11/22/20 09:00 12/14/20 05:51 Quetiapine Fumarate (SEROquel) 600 mg HS PO 11/21/20 22:15 12/03/20 18:47 DC 12/02/20 20:08 Saliva Substitute (Biotene Moisturizing Mouth) 2 spray PRN TID PRN PO DRY MOUTH 11/21/20 22:15 Non-Formulary Medication (Semaglutide (Ozempic)) 1 mg QFR SQ 11/23/20 16:00 12/09/20 10:20 DC Pentoxifylline (TRENtal) 400 mg TIDWMEALS PO 11/22/20 08:00 12/15/20 05:08 Vitamin D (Vitamin D3) 2,000 unit DAILY PO 11/22/20 09:00 12/15/20 05:10 Lactobacillus Rhamnosus (Culturelle) 1 cap BID PO 11/22/20 09:00 12/15/20 05:08 Mirtazapine (Remeron) 7.5 mg QHS PO 11/27/20 21:00 12/11/20 17:03 DC 12/10/20 20:08 Divalproex Sodium (Depakote Er) 500 mg QHS PO 11/28/20 21:00 12/01/20 17:12 DC 11/30/20 20:45 Divalproex Sodium (Depakote Er) 1,000 mg QHS PO 12/01/20 21:00 12/14/20 20:10 Bupropion HCl (Wellbutrin Xl) 150 mg DAILY PO 12/03/20 09:00 12/09/20 16:24 DC 12/09/20 08:14 Quetiapine Fumarate (SEROquel) 200 mg TID PO 12/03/20 21:00 12/06/20 11:47 DC 12/06/20 07:48 Clonazepam (KlonoPIN) 0.5 mg TID PO 12/03/20 21:00 12/14/20 20:10 Trazodone HCl (Desyrel) 100 mg PRN QHS PRN PO INSOMNIA, MAY REPEAT X1 12/04/20 19:15 12/14/20 20:10 Risperidone (RisperDAL) 0.5 mg 0900,1300,1700 PO 12/06/20 13:00 12/07/20 17:12 DC 12/07/20 09:00 Risperidone (RisperDAL) 1.5 mg DAILY PO 12/08/20 09:00 12/07/20 19:50 DC Risperidone (RisperDAL) 1.5 mg DAILY PO 12/07/20 20:00 12/09/20 16:24 DC 12/09/20 08:16 Acetaminophen/ Hydrocodone Bitart (Lortab 5/325) 1 tab PRN TID PRN PO mod-sev PAIN 12/08/20 17:00 12/14/20 12:38 Risperidone (RisperDAL) 2 mg DAILY PO 12/10/20 09:00 12/13/20 12:47 DC 12/13/20 09:29 Mirtazapine (Remeron) 15 mg QHS PO 12/11/20 21:00 12/14/20 20:10 Risperidone (RisperDAL) 3 mg DAILY PO 12/14/20 09:00 12/15/20 05:12 Risperidone (RisperDAL CONSTA) 25 mg Q2WKS IM 12/14/20 09:00 12/14/20 09:35 Current Medications Medications (Trade) Dose Ordered Sig/Leonides Route PRN Reason Start Time Stop Time Status Last Admin Dose Admin Risperidone (RisperDAL) 3 mg DAILY PO 12/14/20 09:00 12/15/20 05:12 Risperidone (RisperDAL CONSTA) 25 mg Q2WKS IM 12/14/20 09:00 12/14/20 09:35 I have reviewed the current psychotropics carefully including drug interactions. Risk benefit ratio favors no change other than as noted in my dictated progress note. Diagnosis: Problems: (1) Schizoaffective disorder, bipolar type (2) Anxiety disorder, unspecified (3) Impulse disorder, unspecified (4) Bipolar disorder, curr episode mixed, severe, with psychotic features RAJIV VELAZQUEZ MD Dec 15, 2020 07:33
[2020-12-15] MEDS: INSULIN LISPRO 300 UNITS/3 ML VIAL. SQ SCH ×3 (08:00→16:47)
[2020-12-15] MEDS: PROPRANOLOL 20 MG TABLET. PO SCH (08:31)
[2020-12-15] MEDS: clonazePAM 0.5 MG TABLET PO SCH ×3 (08:31→20:06)
[2020-12-15] MEDS: INSULIN GLARGINE SYRINGE. SQ SCH ×2 (08:32→19:32)
[2020-12-15] MEDS: HYDROcodone/APAP 5/325MG 1 TAB TABLET PO PRN (12:41)
[2020-12-15 15:53] VITALS: BP 122/77
[2020-12-15] MEDS: MIRTAZAPINE 15 MG TABLET PO SCH (20:05)
[2020-12-15] MEDS: DIVALPROEX ER 500 MG TAB.ER.24H PO SCH (20:06)
--- NOTE | 2020-12-15 21:00 | PDOC ---
Exam Note: Donte Note: Please also refer to the separate dictated note~for this date of service dictated separately.~Patient seen individually. Discussed the patient with Nursing staff reviewed the chart.~Reviewed interim history and current functioning. Reviewed vital signs,~Labs/ Radiology~and current medications noted below. Continue current treatment with the changes noted in the dictated addendum note Assessment: Vital Signs/I&O: Vital Signs Date Time Temp Pulse Resp B/P (MAP) Pulse Ox O2 Delivery O2 Flow Rate FiO2 12/15/20 15:53 97.0 70 20 122/77 (92) 97 12/15/20 13:29 Room Air I & O 12/14/20 12/14/20 12/15/20 15:00 23:00 07:00 Intake Total 480 ml 600 ml Balance 480 ml 600 ml Labs: Laboratory Tests Test 12/15/20 08:04 12/15/20 11:23 12/15/20 16:37 12/15/20 19:14 Glucose (Fingerstick) 127 mg/dL (70-99) H 235 mg/dL (70-99) H 95 mg/dL (70-99) 92 mg/dL (70-99) Current Medications: Meds: Laboratory Tests Test 12/15/20 08:04 12/15/20 11:23 12/15/20 16:37 12/15/20 19:14 Glucose (Fingerstick) 127 mg/dL 235 mg/dL 95 mg/dL 92 mg/dL Current Medications Medications (Trade) Dose Ordered Sig/Leonides Route PRN Reason Start Time Stop Time Status Last Admin Dose Admin Multi-Ingredient Ointment (Analgesic [place]) 1 swathi PRN QID PRN TP MUSCLE PAIN 11/21/20 21:00 Al Hydroxide/Mg Hydroxide (Mylanta Plus Xs) 15 ml PRN AFTMEALHC PRN PO DYSPEPSIA 11/21/20 21:00 Magnesium Hydroxide (Milk Of Magnesia) 2,400 mg PRN QHS PRN PO 1ST CHOICE CONSTIPATION 11/21/20 21:00 Acetaminophen (Tylenol) 650 mg PRN Q4HRS PRN PO MILD PAIN / TEMP > 100.3'F 11/21/20 21:45 12/06/20 22:17 Amoxicillin/ Clavulanate Potassium (Augmentin 875/ 125mg) 1 tab BID PO 11/22/20 09:00 11/24/20 21:01 DC 11/24/20 20:55 Aspirin (Aspirin Enteric Coated) 81 mg DAILY PO 11/22/20 09:00 12/15/20 05:07 Bisacodyl (Dulcolax Tab) 5 mg PRN DAILY PRN PO 2ND CHOICE CONSTIPATION 11/21/20 21:45 Furosemide (Lasix) 40 mg DAILY PO 11/22/20 09:00 12/15/20 05:10 Acetaminophen/ Hydrocodone Bitart (Lortab 5/325) 1 tab PRN BID PRN PO mod-sev PAIN 11/21/20 21:45 12/08/20 17:03 DC 12/08/20 09:20 Ibuprofen (Motrin) 200 mg PRN Q6HRS PRN PO MILD PAIN / TEMP > 100.3'F 11/21/20 21:45 Cancel Albuterol/ Ipratropium (Duoneb) 3 ml PRN BID PRN NEB SHORTNESS OF BREATH 11/21/20 21:45 Levothyroxine Sodium (Synthroid) 112 mcg DAILY06 PO 11/22/20 06:00 12/15/20 05:07 Lorazepam (Ativan) 0.5 mg TID PO 11/21/20 22:00 12/03/20 18:47 DC 12/03/20 13:59 Zolpidem Tartrate (Ambien) 5 mg HS PO 11/21/20 22:00 11/27/20 18:02 DC 11/26/20 20:44 Betamethasone Dipropion Augmented (Betamethasone Dp Aug 0.05% Cream) 1 swathi PRN BID PRN TP RASH 11/21/20 22:15 Multi-Ingred Cream/Lotion/Oil/ Oint (Hydrocerin) 1 swathi PRN BID PRN TP Dry Hands 11/21/20 22:00 Guaifenesin (Robitussin Dm) 10 ml PRN Q8HRS PRN PO COUGH 11/21/20 22:00 Insulin Human Lispro (HumaLOG) 20 units TIDWMEALS SQ 11/22/20 08:00 12/15/20 12:35 Insulin Glargine (Lantus Syringe) 30 unit BID SQ 11/21/20 22:00 12/15/20 08:32 Magnesium Chloride (Mag Delay) 64 mg DAILY PO 11/22/20 09:00 12/15/20 05:09 Non-Formulary Medication (Menthol (Biofreeze)) 1 swathi QID PRN TP MUSCLE PAIN 11/21/20 21:45 UNV Pantoprazole Sodium (Protonix) 40 mg DAILY PO 11/22/20 09:00 12/15/20 05:10 Oxybutynin Chloride (Ditropan) 5 mg DAILY PO 11/22/20 09:00 12/15/20 05:07 Polyethylene Glycol (miraLAX) 17 gm DAILY PO 11/22/20 09:00 12/15/20 05:08 Potassium Chloride (Klor-Con) 10 meq DAILY PO 11/22/20 09:00 12/15/20 05:08 Propranolol HCl (Inderal) 40 mg DAILY PO 11/22/20 09:00 12/15/20 08:31 Quetiapine Fumarate (SEROquel) 600 mg HS PO 11/21/20 22:15 12/03/20 18:47 DC 12/02/20 20:08 Saliva Substitute (Biotene Moisturizing Mouth) 2 spray PRN TID PRN PO DRY MOUTH 11/21/20 22:15 Non-Formulary Medication (Semaglutide (Ozempic)) 1 mg QFR SQ 11/23/20 16:00 12/09/20 10:20 DC Pentoxifylline (TRENtal) 400 mg TIDWMEALS PO 11/22/20 08:00 12/15/20 12:33 Vitamin D (Vitamin D3) 2,000 unit DAILY PO 11/22/20 09:00 12/15/20 05:10 Lactobacillus Rhamnosus (Culturelle) 1 cap BID PO 11/22/20 09:00 12/15/20 20:04 Mirtazapine (Remeron) 7.5 mg QHS PO 11/27/20 21:00 12/11/20 17:03 DC 12/10/20 20:08 Divalproex Sodium (Depakote Er) 500 mg QHS PO 11/28/20 21:00 12/01/20 17:12 DC 11/30/20 20:45 Divalproex Sodium (Depakote Er) 1,000 mg QHS PO 12/01/20 21:00 12/15/20 20:06 Bupropion HCl (Wellbutrin Xl) 150 mg DAILY PO 12/03/20 09:00 12/09/20 16:24 DC 12/09/20 08:14 Quetiapine Fumarate (SEROquel) 200 mg TID PO 12/03/20 21:00 12/06/20 11:47 DC 12/06/20 07:48 Clonazepam (KlonoPIN) 0.5 mg TID PO 12/03/20 21:00 12/15/20 20:06 Trazodone HCl (Desyrel) 100 mg PRN QHS PRN PO INSOMNIA, MAY REPEAT X1 12/04/20 19:15 12/14/20 20:10 Risperidone (RisperDAL) 0.5 mg 0900,1300,1700 PO 12/06/20 13:00 12/07/20 17:12 DC 12/07/20 09:00 Risperidone (RisperDAL) 1.5 mg DAILY PO 12/08/20 09:00 12/07/20 19:50 DC Risperidone (RisperDAL) 1.5 mg DAILY PO 12/07/20 20:00 12/09/20 16:24 DC 12/09/20 08:16 Acetaminophen/ Hydrocodone Bitart (Lortab 5/325) 1 tab PRN TID PRN PO mod-sev PAIN 12/08/20 17:00 12/15/20 12:41 Risperidone (RisperDAL) 2 mg DAILY PO 12/10/20 09:00 12/13/20 12:47 DC 12/13/20 09:29 Mirtazapine (Remeron) 15 mg QHS PO 12/11/20 21:00 12/15/20 20:05 Risperidone (RisperDAL) 3 mg DAILY PO 12/14/20 09:00 12/15/20 05:12 Risperidone (RisperDAL CONSTA) 25 mg Q2WKS IM 12/14/20 09:00 12/14/20 09:35 I have reviewed the current psychotropics carefully including drug interactions. Risk benefit ratio favors no change other than as noted in my dictated progress note. Diagnosis: Problems: (1) Mild cognitive impairment (2) Schizoaffective disorder, bipolar type (3) Anxiety disorder, unspecified (4) Intellectual disability (5) Impulse disorder, unspecified (6) Bipolar disorder, curr episode mixed, severe, with psychotic features RAJIV VELAZQUEZ MD Dec 15, 2020 21:00
[2020-12-16] MEDS ORDERED: QUEtiapine 50 MG TABLET. PO PRN (04:15)
[2020-12-16] MEDS: LORazepam 0.5 MG TABLET PO PRN (04:41)
[2020-12-16] MEDS: LEVOTHYROXINE 112 MCG TABLET PO SCH (05:20)
[2020-12-16 05:58] VITALS: BP 124/67
--- NOTE | 2020-12-16 08:02 | PDOC ---
Exam Note: Donte Note: This note is a late entry for 12/15/2020 covers elements not covered in my initial note. Subjective: The patient was seen on telehealth rounds in the evening of 12/15/2020 with Nacho COPELAND. Discussed with nursing staff, reviewed the chart. The patient slept 6-1/4 hours previous night. She was resistive to medications in the morning, took her noon medications, refused them in the evening. She gets paranoid, suspicious, making faces at staff members. Review of Systems: No CV, , pulmonary, eye, ENT system symptoms on review. Mental Status Exam: The patient is oriented to herself and situation. Speech has some latency. Often response is monosyllabic, low in volume. Abstraction is fair. Computation is impaired. Language function is intact. Attention span is short. Mood and affect somewhat labile. Laboratory Data: Reviewed. Impression: Schizoaffective disorder, bipolar type, mixed with psychotic features. Anxiety disorder unspecified. Impulse control disorder unspecified. Plan: Continue current psychotropics. She has been started on Risperdal Consta and we are using the oral Risperdal for the next couple of weeks till the Consta is effective. Continue Depakote, prior level was 78 therapeutic. Assessment: Vital Signs/I&O: Vital Signs Date Time Temp Pulse Resp B/P (MAP) Pulse Ox O2 Delivery O2 Flow Rate FiO2 12/16/20 05:58 97.4 78 18 124/67 (86) 95 12/15/20 13:29 Room Air I & O 12/15/20 12/15/20 12/16/20 15:00 23:00 07:00 Intake Total 840 ml 600 ml Balance 840 ml 600 ml Labs: Laboratory Tests Test 12/15/20 08:04 12/15/20 11:23 12/15/20 16:37 12/15/20 19:14 Glucose (Fingerstick) 127 mg/dL (70-99) H 235 mg/dL (70-99) H 95 mg/dL (70-99) 92 mg/dL (70-99) Test 12/16/20 07:55 Glucose (Fingerstick) 146 mg/dL (70-99) H Current Medications: Meds: Laboratory Tests Test 12/15/20 08:04 12/15/20 11:23 12/15/20 16:37 12/15/20 19:14 Glucose (Fingerstick) 127 mg/dL 235 mg/dL 95 mg/dL 92 mg/dL Test 12/16/20 07:55 Glucose (Fingerstick) 146 mg/dL Current Medications Medications (Trade) Dose Ordered Sig/Leonides Route PRN Reason Start Time Stop Time Status Last Admin Dose Admin Multi-Ingredient Ointment (Analgesic [place]) 1 swathi PRN QID PRN TP MUSCLE PAIN 11/21/20 21:00 Al Hydroxide/Mg Hydroxide (Mylanta Plus Xs) 15 ml PRN AFTMEALHC PRN PO DYSPEPSIA 11/21/20 21:00 Magnesium Hydroxide (Milk Of Magnesia) 2,400 mg PRN QHS PRN PO 1ST CHOICE CONSTIPATION 11/21/20 21:00 Acetaminophen (Tylenol) 650 mg PRN Q4HRS PRN PO MILD PAIN / TEMP > 100.3'F 11/21/20 21:45 12/06/20 22:17 Amoxicillin/ Clavulanate Potassium (Augmentin 875/ 125mg) 1 tab BID PO 11/22/20 09:00 11/24/20 21:01 DC 11/24/20 20:55 Aspirin (Aspirin Enteric Coated) 81 mg DAILY PO 11/22/20 09:00 12/15/20 05:07 Bisacodyl (Dulcolax Tab) 5 mg PRN DAILY PRN PO 2ND CHOICE CONSTIPATION 11/21/20 21:45 Furosemide (Lasix) 40 mg DAILY PO 11/22/20 09:00 12/15/20 05:10 Acetaminophen/ Hydrocodone Bitart (Lortab 5/325) 1 tab PRN BID PRN PO mod-sev PAIN 11/21/20 21:45 12/08/20 17:03 DC 12/08/20 09:20 Ibuprofen (Motrin) 200 mg PRN Q6HRS PRN PO MILD PAIN / TEMP > 100.3'F 11/21/20 21:45 Cancel Albuterol/ Ipratropium (Duoneb) 3 ml PRN BID PRN NEB SHORTNESS OF BREATH 11/21/20 21:45 Levothyroxine Sodium (Synthroid) 112 mcg DAILY06 PO 11/22/20 06:00 12/16/20 05:20 Lorazepam (Ativan) 0.5 mg TID PO 11/21/20 22:00 12/03/20 18:47 DC 12/03/20 13:59 Zolpidem Tartrate (Ambien) 5 mg HS PO 11/21/20 22:00 11/27/20 18:02 DC 11/26/20 20:44 Betamethasone Dipropion Augmented (Betamethasone Dp Aug 0.05% Cream) 1 swathi PRN BID PRN TP RASH 11/21/20 22:15 Multi-Ingred Cream/Lotion/Oil/ Oint (Hydrocerin) 1 swathi PRN BID PRN TP Dry Hands 11/21/20 22:00 Guaifenesin (Robitussin Dm) 10 ml PRN Q8HRS PRN PO COUGH 11/21/20 22:00 Insulin Human Lispro (HumaLOG) 20 units TIDWMEALS SQ 11/22/20 08:00 12/15/20 12:35 Insulin Glargine (Lantus Syringe) 30 unit BID SQ 11/21/20 22:00 12/15/20 08:32 Magnesium Chloride (Mag Delay) 64 mg DAILY PO 11/22/20 09:00 12/15/20 05:09 Non-Formulary Medication (Menthol (Biofreeze)) 1 swathi QID PRN TP MUSCLE PAIN 11/21/20 21:45 UNV Pantoprazole Sodium (Protonix) 40 mg DAILY PO 11/22/20 09:00 12/15/20 05:10 Oxybutynin Chloride (Ditropan) 5 mg DAILY PO 11/22/20 09:00 12/15/20 05:07 Polyethylene Glycol (miraLAX) 17 gm DAILY PO 11/22/20 09:00 12/15/20 05:08 Potassium Chloride (Klor-Con) 10 meq DAILY PO 11/22/20 09:00 12/15/20 05:08 Propranolol HCl (Inderal) 40 mg DAILY PO 11/22/20 09:00 12/15/20 08:31 Quetiapine Fumarate (SEROquel) 600 mg HS PO 11/21/20 22:15 12/03/20 18:47 DC 12/02/20 20:08 Saliva Substitute (Biotene Moisturizing Mouth) 2 spray PRN TID PRN PO DRY MOUTH 11/21/20 22:15 Non-Formulary Medication (Semaglutide (Ozempic)) 1 mg QFR SQ 11/23/20 16:00 12/09/20 10:20 DC Pentoxifylline (TRENtal) 400 mg TIDWMEALS PO 11/22/20 08:00 12/15/20 12:33 Vitamin D (Vitamin D3) 2,000 unit DAILY PO 11/22/20 09:00 12/15/20 05:10 Lactobacillus Rhamnosus (Culturelle) 1 cap BID PO 11/22/20 09:00 12/15/20 20:04 Mirtazapine (Remeron) 7.5 mg QHS PO 11/27/20 21:00 12/11/20 17:03 DC 12/10/20 20:08 Divalproex Sodium (Depakote Er) 500 mg QHS PO 11/28/20 21:00 12/01/20 17:12 DC 11/30/20 20:45 Divalproex Sodium (Depakote Er) 1,000 mg QHS PO 12/01/20 21:00 12/15/20 20:06 Bupropion HCl (Wellbutrin Xl) 150 mg DAILY PO 12/03/20 09:00 12/09/20 16:24 DC 12/09/20 08:14 Quetiapine Fumarate (SEROquel) 200 mg TID PO 12/03/20 21:00 12/06/20 11:47 DC 12/06/20 07:48 Clonazepam (KlonoPIN) 0.5 mg TID PO 12/03/20 21:00 12/15/20 20:06 Trazodone HCl (Desyrel) 100 mg PRN QHS PRN PO INSOMNIA, MAY REPEAT X1 12/04/20 19:15 12/14/20 20:10 Risperidone (RisperDAL) 0.5 mg 0900,1300,1700 PO 12/06/20 13:00 12/07/20 17:12 DC 12/07/20 09:00 Risperidone (RisperDAL) 1.5 mg DAILY PO 12/08/20 09:00 12/07/20 19:50 DC Risperidone (RisperDAL) 1.5 mg DAILY PO 12/07/20 20:00 12/09/20 16:24 DC 12/09/20 08:16 Acetaminophen/ Hydrocodone Bitart (Lortab 5/325) 1 tab PRN TID PRN PO mod-sev PAIN 12/08/20 17:00 12/15/20 12:41 Risperidone (RisperDAL) 2 mg DAILY PO 12/10/20 09:00 12/13/20 12:47 DC 12/13/20 09:29 Mirtazapine (Remeron) 15 mg QHS PO 12/11/20 21:00 12/15/20 20:05 Risperidone (RisperDAL) 3 mg DAILY PO 12/14/20 09:00 12/15/20 05:12 Risperidone (RisperDAL CONSTA) 25 mg Q2WKS IM 12/14/20 09:00 12/14/20 09:35 Quetiapine Fumarate (SEROquel) 50 mg PRN Q2HR PRN PO ANXIETY / AGITATION 12/16/20 04:15 12/16/20 04:41 Lorazepam (Ativan) 0.5 mg PRN Q2HR PRN PO ANXIETY / AGITATION 12/16/20 04:15 12/16/20 04:41 Current Medications Medications (Trade) Dose Ordered Sig/Leonides Route PRN Reason Start Time Stop Time Status Last Admin Dose Admin Quetiapine Fumarate (SEROquel) 50 mg PRN Q2HR PRN PO ANXIETY / AGITATION 12/16/20 04:15 12/16/20 04:41 Lorazepam (Ativan) 0.5 mg PRN Q2HR PRN PO ANXIETY / AGITATION 12/16/20 04:15 12/16/20 04:41 I have reviewed the current psychotropics carefully including drug interactions. Risk benefit ratio favors no change other than as noted in my dictated progress note. Diagnosis: Problems: (1) Mild cognitive impairment (2) Schizoaffective disorder, bipolar type (3) Anxiety disorder, unspecified (4) Intellectual disability (5) Impulse disorder, unspecified (6) Bipolar disorder, curr episode mixed, severe, with psychotic features RAJIV VELAZQUEZ MD Dec 16, 2020 08:02
[2020-12-16] MEDS: POTASSIUM CHLORIDE 10 MEQ TABLET.ER. PO SCH (08:42)
[2020-12-16] MEDS: FUROSEMIDE 40 MG TABLET PO SCH (08:42)
[2020-12-16] MEDS: OXYBUTYNIN CHLORIDE 5 MG TABLET PO SCH (08:42)
[2020-12-16] MEDS: LACTOBACILLUS RHAMNOSUS GG 1 CAPSULE. PO SCH ×2 (08:42→19:55)
[2020-12-16] MEDS: PROPRANOLOL 20 MG TABLET. PO SCH (08:42)
[2020-12-16] MEDS: PENTOXIFYLLINE ER 400 MG TABLET.ER. PO SCH ×3 (08:42→17:23)
[2020-12-16] MEDS: MAGNESIUM CHLORIDE ER 64 MG TABLET.ER PO SCH (08:42)
[2020-12-16] MEDS: PANTOPRAZOLE 40 MG TABLET. PO SCH (08:42)
[2020-12-16] MEDS: ASPIRIN ENTERIC COATED 81 MG TABLET.DR. PO SCH (08:42)
[2020-12-16] MEDS: clonazePAM 0.5 MG TABLET PO SCH ×3 (08:43→19:58)
[2020-12-16] MEDS: CHOLECALCIFEROL (VITAMIN D3) 1,000 UNIT TABLET PO SCH (08:43)
[2020-12-16] MEDS: risperiDONE ORAL 1 MG/ML 30ml BOTTLE. PO SCH (08:44)
[2020-12-16] MEDS: INSULIN GLARGINE SYRINGE. SQ SCH ×2 (08:45→20:00)
[2020-12-16] MEDS: POLYETHYLENE GLYCOL 3350 17 GM PACKET. PO SCH (08:45)
[2020-12-16] MEDS: INSULIN LISPRO 300 UNITS/3 ML VIAL. SQ SCH ×3 (08:48→17:00)
[2020-12-16] MEDS: HYDROcodone/APAP 5/325MG 1 TAB TABLET PO PRN (13:10)
[2020-12-16 15:00] VITALS: BP 100/60
[2020-12-16] MEDS: MIRTAZAPINE 15 MG TABLET PO SCH (19:55)
[2020-12-16] MEDS: DIVALPROEX ER 500 MG TAB.ER.24H PO SCH (19:56)
--- NOTE | 2020-12-16 20:55 | PDOC ---
Exam Note: Donte Note: Please also refer to the separate dictated note~for this date of service dictated separately.~Patient seen individually. Discussed the patient with Nursing staff reviewed the chart.~Reviewed interim history and current functioning. Reviewed vital signs,~Labs/ Radiology~and current medications noted below. Continue current treatment with the changes noted in the dictated addendum note Assessment: Vital Signs/I&O: Vital Signs Date Time Temp Pulse Resp B/P (MAP) Pulse Ox O2 Delivery O2 Flow Rate FiO2 12/16/20 15:00 97.4 66 18 100/60 (73) 97 Room Air I & O 12/15/20 12/15/20 12/16/20 15:00 23:00 07:00 Intake Total 840 ml 600 ml Balance 840 ml 600 ml Labs: Laboratory Tests Test 12/16/20 07:55 12/16/20 11:22 12/16/20 19:12 Glucose (Fingerstick) 146 mg/dL (70-99) H 164 mg/dL (70-99) H 290 mg/dL (70-99) H Current Medications: Meds: Laboratory Tests Test 12/16/20 07:55 12/16/20 11:22 12/16/20 19:12 Glucose (Fingerstick) 146 mg/dL 164 mg/dL 290 mg/dL Current Medications Medications (Trade) Dose Ordered Sig/Leonides Route PRN Reason Start Time Stop Time Status Last Admin Dose Admin Multi-Ingredient Ointment (Analgesic [place]) 1 swathi PRN QID PRN TP MUSCLE PAIN 11/21/20 21:00 Al Hydroxide/Mg Hydroxide (Mylanta Plus Xs) 15 ml PRN AFTMEALHC PRN PO DYSPEPSIA 11/21/20 21:00 Magnesium Hydroxide (Milk Of Magnesia) 2,400 mg PRN QHS PRN PO 1ST CHOICE CONSTIPATION 11/21/20 21:00 Acetaminophen (Tylenol) 650 mg PRN Q4HRS PRN PO MILD PAIN / TEMP > 100.3'F 11/21/20 21:45 12/06/20 22:17 Amoxicillin/ Clavulanate Potassium (Augmentin 875/ 125mg) 1 tab BID PO 11/22/20 09:00 11/24/20 21:01 DC 11/24/20 20:55 Aspirin (Aspirin Enteric Coated) 81 mg DAILY PO 11/22/20 09:00 2/7/21 08:42 Bisacodyl (Dulcolax Tab) 5 mg PRN DAILY PRN PO 2ND CHOICE CONSTIPATION 11/21/20 21:45 Furosemide (Lasix) 40 mg DAILY PO 11/22/20 09:00 12/16/20 08:42 Acetaminophen/ Hydrocodone Bitart (Lortab 5/325) 1 tab PRN BID PRN PO mod-sev PAIN 11/21/20 21:45 12/08/20 17:03 DC 12/08/20 09:20 Ibuprofen (Motrin) 200 mg PRN Q6HRS PRN PO MILD PAIN / TEMP > 100.3'F 11/21/20 21:45 Cancel Albuterol/ Ipratropium (Duoneb) 3 ml PRN BID PRN NEB SHORTNESS OF BREATH 11/21/20 21:45 Levothyroxine Sodium (Synthroid) 112 mcg DAILY06 PO 11/22/20 06:00 12/16/20 05:20 Lorazepam (Ativan) 0.5 mg TID PO 11/21/20 22:00 12/03/20 18:47 DC 12/03/20 13:59 Zolpidem Tartrate (Ambien) 5 mg HS PO 11/21/20 22:00 11/27/20 18:02 DC 11/26/20 20:44 Betamethasone Dipropion Augmented (Betamethasone Dp Aug 0.05% Cream) 1 swathi PRN BID PRN TP RASH 11/21/20 22:15 Multi-Ingred Cream/Lotion/Oil/ Oint (Hydrocerin) 1 swathi PRN BID PRN TP Dry Hands 11/21/20 22:00 Guaifenesin (Robitussin Dm) 10 ml PRN Q8HRS PRN PO COUGH 11/21/20 22:00 Insulin Human Lispro (HumaLOG) 20 units TIDWMEALS SQ 11/22/20 08:00 12/16/20 12:14 Insulin Glargine (Lantus Syringe) 30 unit BID SQ 11/21/20 22:00 12/16/20 20:00 Magnesium Chloride (Mag Delay) 64 mg DAILY PO 11/22/20 09:00 12/16/20 08:42 Non-Formulary Medication (Menthol (Biofreeze)) 1 swathi QID PRN TP MUSCLE PAIN 11/21/20 21:45 UNV Pantoprazole Sodium (Protonix) 40 mg DAILY PO 11/22/20 09:00 12/16/20 08:42 Oxybutynin Chloride (Ditropan) 5 mg DAILY PO 11/22/20 09:00 12/16/20 08:42 Polyethylene Glycol (miraLAX) 17 gm DAILY PO 11/22/20 09:00 12/16/20 08:45 Potassium Chloride (Klor-Con) 10 meq DAILY PO 11/22/20 09:00 12/16/20 08:42 Propranolol HCl (Inderal) 40 mg DAILY PO 11/22/20 09:00 12/16/20 08:42 Quetiapine Fumarate (SEROquel) 600 mg HS PO 11/21/20 22:15 12/03/20 18:47 DC 12/02/20 20:08 Saliva Substitute (Biotene Moisturizing Mouth) 2 spray PRN TID PRN PO DRY MOUTH 11/21/20 22:15 Non-Formulary Medication (Semaglutide (Ozempic)) 1 mg QFR SQ 11/23/20 16:00 12/09/20 10:20 DC Pentoxifylline (TRENtal) 400 mg TIDWMEALS PO 11/22/20 08:00 12/16/20 17:23 Vitamin D (Vitamin D3) 2,000 unit DAILY PO 11/22/20 09:00 12/16/20 08:43 Lactobacillus Rhamnosus (Culturelle) 1 cap BID PO 11/22/20 09:00 12/16/20 19:55 Mirtazapine (Remeron) 7.5 mg QHS PO 11/27/20 21:00 12/11/20 17:03 DC 12/10/20 20:08 Divalproex Sodium (Depakote Er) 500 mg QHS PO 11/28/20 21:00 12/01/20 17:12 DC 11/30/20 20:45 Divalproex Sodium (Depakote Er) 1,000 mg QHS PO 12/01/20 21:00 12/16/20 19:56 Bupropion HCl (Wellbutrin Xl) 150 mg DAILY PO 12/03/20 09:00 12/09/20 16:24 DC 12/09/20 08:14 Quetiapine Fumarate (SEROquel) 200 mg TID PO 12/03/20 21:00 12/06/20 11:47 DC 12/06/20 07:48 Clonazepam (KlonoPIN) 0.5 mg TID PO 12/03/20 21:00 12/16/20 19:58 Trazodone HCl (Desyrel) 100 mg PRN QHS PRN PO INSOMNIA, MAY REPEAT X1 12/04/20 19:15 12/14/20 20:10 Risperidone (RisperDAL) 0.5 mg 0900,1300,1700 PO 12/06/20 13:00 12/07/20 17:12 DC 12/07/20 09:00 Risperidone (RisperDAL) 1.5 mg DAILY PO 12/08/20 09:00 12/07/20 19:50 DC Risperidone (RisperDAL) 1.5 mg DAILY PO 12/07/20 20:00 12/09/20 16:24 DC 12/09/20 08:16 Acetaminophen/ Hydrocodone Bitart (Lortab 5/325) 1 tab PRN TID PRN PO mod-sev PAIN 12/08/20 17:00 12/16/20 13:10 Risperidone (RisperDAL) 2 mg DAILY PO 12/10/20 09:00 12/13/20 12:47 DC 12/13/20 09:29 Mirtazapine (Remeron) 15 mg QHS PO 12/11/20 21:00 12/16/20 19:55 Risperidone (RisperDAL) 3 mg DAILY PO 12/14/20 09:00 12/16/20 08:44 Risperidone (RisperDAL CONSTA) 25 mg Q2WKS IM 12/14/20 09:00 12/14/20 09:35 Quetiapine Fumarate (SEROquel) 50 mg PRN Q2HR PRN PO ANXIETY / AGITATION 12/16/20 04:15 12/16/20 04:41 Lorazepam (Ativan) 0.5 mg PRN Q2HR PRN PO ANXIETY / AGITATION 12/16/20 04:15 12/16/20 04:41 Current Medications Medications (Trade) Dose Ordered Sig/Leonides Route PRN Reason Start Time Stop Time Status Last Admin Dose Admin Quetiapine Fumarate (SEROquel) 50 mg PRN Q2HR PRN PO ANXIETY / AGITATION 12/16/20 04:15 12/16/20 04:41 Lorazepam (Ativan) 0.5 mg PRN Q2HR PRN PO ANXIETY / AGITATION 12/16/20 04:15 12/16/20 04:41 I have reviewed the current psychotropics carefully including drug interactions. Risk benefit ratio favors no change other than as noted in my dictated progress note. Diagnosis: Problems: (1) Mild cognitive impairment (2) Schizoaffective disorder, bipolar type (3) Anxiety disorder, unspecified (4) Intellectual disability (5) Impulse disorder, unspecified (6) Bipolar disorder, curr episode mixed, severe, with psychotic features RAJIV VELAZQUEZ MD Dec 16, 2020 20:55
[2020-12-17] MEDS: LEVOTHYROXINE 112 MCG TABLET PO SCH (04:58)
[2020-12-17 06:17] VITALS: BP 131/84
[2020-12-17] MEDS: PENTOXIFYLLINE ER 400 MG TABLET.ER. PO SCH ×3 (08:56→17:08)
[2020-12-17] MEDS: MAGNESIUM CHLORIDE ER 64 MG TABLET.ER PO SCH (08:56)
[2020-12-17] MEDS: LACTOBACILLUS RHAMNOSUS GG 1 CAPSULE. PO SCH ×2 (08:56→19:45)
[2020-12-17] MEDS: FUROSEMIDE 40 MG TABLET PO SCH (08:56)
[2020-12-17] MEDS: ASPIRIN ENTERIC COATED 81 MG TABLET.DR. PO SCH (08:56)
[2020-12-17] MEDS: POTASSIUM CHLORIDE 10 MEQ TABLET.ER. PO SCH (08:56)
[2020-12-17] MEDS: clonazePAM 0.5 MG TABLET PO SCH ×3 (08:57→19:45)
[2020-12-17] MEDS: PANTOPRAZOLE 40 MG TABLET. PO SCH (08:57)
[2020-12-17] MEDS: POLYETHYLENE GLYCOL 3350 17 GM PACKET. PO SCH (08:57)
[2020-12-17] MEDS: OXYBUTYNIN CHLORIDE 5 MG TABLET PO SCH (08:57)
[2020-12-17] MEDS: PROPRANOLOL 20 MG TABLET. PO SCH (08:57)
[2020-12-17] MEDS: CHOLECALCIFEROL (VITAMIN D3) 1,000 UNIT TABLET PO SCH (09:00)
[2020-12-17] MEDS: INSULIN GLARGINE SYRINGE. SQ SCH ×2 (09:03→21:32)
[2020-12-17] MEDS: INSULIN LISPRO 300 UNITS/3 ML VIAL. SQ SCH ×3 (09:03→17:14)
[2020-12-17] MEDS: LORazepam 0.5 MG TABLET PO PRN (09:49)
[2020-12-17] MEDS: risperiDONE ORAL 1 MG/ML 30ml BOTTLE. PO SCH (12:30)
[2020-12-17 15:14] VITALS: BP 131/81
[2020-12-17] MEDS: MIRTAZAPINE 15 MG TABLET PO SCH (19:46)
[2020-12-17] MEDS: DIVALPROEX ER 500 MG TAB.ER.24H PO SCH (19:46)
--- NOTE | 2020-12-17 21:03 | PDOC ---
Exam Note: Donte Note: This note is a late entry for 12/16/2020 covers elements not covered in my initial note. Subjective: The patient was seen on telehealth rounds in the evening of 12/16/2020 with Nacho COPELAND. Discussed with nursing staff, reviewed the chart. The patient slept 3 hours previous night. I was additionally called around midnight last night by nursing staff as an emergency as the patient was extremely agitated, paranoid, psychotic, throwing things, striking out, glaring at staff. Earlier this morning she was physically punching at the nursing staff, then rammed her wheelchair in the quiet room and she was placed there to deescalate her. She rammed it so hard that it got the door open. She did get Zyprexa and then her scheduled Risperdal, then did better later in the day. Review of Systems: No CV, , pulmonary, eye, ENT system symptoms on review. She does complain of pain. Mental Status Exam: The patient is oriented to herself and situation. Speech has some latency, coherent. Abstraction is fair. Computation is impaired. Language function is intact. Mood and affect remains labile. Laboratory Data: Reviewed. Impression: Schizoaffective disorder, bipolar type, mixed with psychotic features. Anxiety disorder unspecified. Impulse control disorder unspecified. Plan: Continue current psychotropics. We will need to increase oral Risperdal but we have started her on Risperdal Consta and we will also adjust Depakote as needed but at last check level was 78 therapeutic. Assessment: Vital Signs/I&O: Vital Signs Date Time Temp Pulse Resp B/P (MAP) Pulse Ox O2 Delivery O2 Flow Rate FiO2 12/17/20 15:14 98.1 88 17 131/81 (98) 94 12/16/20 15:00 Room Air I & O 12/16/20 12/16/20 12/17/20 15:00 23:00 07:00 Intake Total 360 ml 440 ml Balance 360 ml 440 ml Labs: Laboratory Tests Test 12/17/20 07:13 12/17/20 11:58 12/17/20 16:55 12/17/20 19:06 Glucose (Fingerstick) 156 mg/dL (70-99) H 141 mg/dL (70-99) H 129 mg/dL (70-99) H 141 mg/dL (70-99) H Current Medications: Meds: Laboratory Tests Test 12/17/20 07:13 12/17/20 11:58 12/17/20 16:55 12/17/20 19:06 Glucose (Fingerstick) 156 mg/dL 141 mg/dL 129 mg/dL 141 mg/dL Current Medications Medications (Trade) Dose Ordered Sig/Leonides Route PRN Reason Start Time Stop Time Status Last Admin Dose Admin Multi-Ingredient Ointment (Analgesic [place]) 1 swathi PRN QID PRN TP MUSCLE PAIN 11/21/20 21:00 Al Hydroxide/Mg Hydroxide (Mylanta Plus Xs) 15 ml PRN AFTMEALHC PRN PO DYSPEPSIA 11/21/20 21:00 Magnesium Hydroxide (Milk Of Magnesia) 2,400 mg PRN QHS PRN PO 1ST CHOICE CONSTIPATION 11/21/20 21:00 Acetaminophen (Tylenol) 650 mg PRN Q4HRS PRN PO MILD PAIN / TEMP > 100.3'F 11/21/20 21:45 12/06/20 22:17 Amoxicillin/ Clavulanate Potassium (Augmentin 875/ 125mg) 1 tab BID PO 11/22/20 09:00 11/24/20 21:01 DC 11/24/20 20:55 Aspirin (Aspirin Enteric Coated) 81 mg DAILY PO 11/22/20 09:00 12/17/20 08:56 Bisacodyl (Dulcolax Tab) 5 mg PRN DAILY PRN PO 2ND CHOICE CONSTIPATION 11/21/20 21:45 Furosemide (Lasix) 40 mg DAILY PO 11/22/20 09:00 12/17/20 08:56 Acetaminophen/ Hydrocodone Bitart (Lortab 5/325) 1 tab PRN BID PRN PO mod-sev PAIN 11/21/20 21:45 12/08/20 17:03 DC 12/08/20 09:20 Ibuprofen (Motrin) 200 mg PRN Q6HRS PRN PO MILD PAIN / TEMP > 100.3'F 11/21/20 21:45 Cancel Albuterol/ Ipratropium (Duoneb) 3 ml PRN BID PRN NEB SHORTNESS OF BREATH 11/21/20 21:45 Levothyroxine Sodium (Synthroid) 112 mcg DAILY06 PO 11/22/20 06:00 12/17/20 04:58 Lorazepam (Ativan) 0.5 mg TID PO 11/21/20 22:00 12/03/20 18:47 DC 12/03/20 13:59 Zolpidem Tartrate (Ambien) 5 mg HS PO 11/21/20 22:00 11/27/20 18:02 DC 11/26/20 20:44 Betamethasone Dipropion Augmented (Betamethasone Dp Aug 0.05% Cream) 1 swathi PRN BID PRN TP RASH 11/21/20 22:15 Multi-Ingred Cream/Lotion/Oil/ Oint (Hydrocerin) 1 swathi PRN BID PRN TP Dry Hands 11/21/20 22:00 Guaifenesin (Robitussin Dm) 10 ml PRN Q8HRS PRN PO COUGH 11/21/20 22:00 Insulin Human Lispro (HumaLOG) 20 units TIDWMEALS SQ 11/22/20 08:00 12/17/20 17:14 Insulin Glargine (Lantus Syringe) 30 unit BID SQ 11/21/20 22:00 12/17/20 09:03 Magnesium Chloride (Mag Delay) 64 mg DAILY PO 11/22/20 09:00 12/17/20 08:56 Non-Formulary Medication (Menthol (Biofreeze)) 1 swathi QID PRN TP MUSCLE PAIN 11/21/20 21:45 UNV Pantoprazole Sodium (Protonix) 40 mg DAILY PO 11/22/20 09:00 12/17/20 08:57 Oxybutynin Chloride (Ditropan) 5 mg DAILY PO 11/22/20 09:00 12/17/20 08:57 Polyethylene Glycol (miraLAX) 17 gm DAILY PO 11/22/20 09:00 12/16/20 08:45 Potassium Chloride (Klor-Con) 10 meq DAILY PO 11/22/20 09:00 12/17/20 08:56 Propranolol HCl (Inderal) 40 mg DAILY PO 11/22/20 09:00 12/17/20 08:57 Quetiapine Fumarate (SEROquel) 600 mg HS PO 11/21/20 22:15 12/03/20 18:47 DC 12/02/20 20:08 Saliva Substitute (Biotene Moisturizing Mouth) 2 spray PRN TID PRN PO DRY MOUTH 11/21/20 22:15 Non-Formulary Medication (Semaglutide (Ozempic)) 1 mg QFR SQ 11/23/20 16:00 12/09/20 10:20 DC Pentoxifylline (TRENtal) 400 mg TIDWMEALS PO 11/22/20 08:00 12/17/20 17:08 Vitamin D (Vitamin D3) 2,000 unit DAILY PO 11/22/20 09:00 12/17/20 09:00 Lactobacillus Rhamnosus (Culturelle) 1 cap BID PO 11/22/20 09:00 12/17/20 19:45 Mirtazapine (Remeron) 7.5 mg QHS PO 11/27/20 21:00 12/11/20 17:03 DC 12/10/20 20:08 Divalproex Sodium (Depakote Er) 500 mg QHS PO 11/28/20 21:00 12/01/20 17:12 DC 11/30/20 20:45 Divalproex Sodium (Depakote Er) 1,000 mg QHS PO 12/01/20 21:00 12/17/20 19:46 Bupropion HCl (Wellbutrin Xl) 150 mg DAILY PO 12/03/20 09:00 12/09/20 16:24 DC 12/09/20 08:14 Quetiapine Fumarate (SEROquel) 200 mg TID PO 12/03/20 21:00 12/06/20 11:47 DC 12/06/20 07:48 Clonazepam (KlonoPIN) 0.5 mg TID PO 12/03/20 21:00 12/17/20 19:45 Trazodone HCl (Desyrel) 100 mg PRN QHS PRN PO INSOMNIA, MAY REPEAT X1 12/04/20 19:15 12/14/20 20:10 Risperidone (RisperDAL) 0.5 mg 0900,1300,1700 PO 12/06/20 13:00 12/07/20 17:12 DC 12/07/20 09:00 Risperidone (RisperDAL) 1.5 mg DAILY PO 12/08/20 09:00 12/07/20 19:50 DC Risperidone (RisperDAL) 1.5 mg DAILY PO 12/07/20 20:00 12/09/20 16:24 DC 12/09/20 08:16 Acetaminophen/ Hydrocodone Bitart (Lortab 5/325) 1 tab PRN TID PRN PO mod-sev PAIN 12/08/20 17:00 12/16/20 13:10 Risperidone (RisperDAL) 2 mg DAILY PO 12/10/20 09:00 12/13/20 12:47 DC 12/13/20 09:29 Mirtazapine (Remeron) 15 mg QHS PO 12/11/20 21:00 12/17/20 19:46 Risperidone (RisperDAL) 3 mg DAILY PO 12/14/20 09:00 12/17/20 12:30 Risperidone (RisperDAL CONSTA) 25 mg Q2WKS IM 12/14/20 09:00 12/14/20 09:35 Quetiapine Fumarate (SEROquel) 50 mg PRN Q2HR PRN PO ANXIETY / AGITATION 12/16/20 04:15 12/16/20 04:41 Lorazepam (Ativan) 0.5 mg PRN Q2HR PRN PO ANXIETY / AGITATION 12/16/20 04:15 12/17/20 09:49 Trazodone HCl (Desyrel) 25 mg 0900,1300,1700 PO 12/18/20 09:00 I have reviewed the current psychotropics carefully including drug interactions. Risk benefit ratio favors no change other than as noted in my dictated progress note. Diagnosis: Problems: (1) Schizoaffective disorder, bipolar type (2) Anxiety disorder, unspecified (3) Impulse disorder, unspecified (4) Bipolar disorder, curr episode mixed, severe, with psychotic features RAJIV VELAZQUEZ MD Dec 17, 2020 21:03
--- NOTE | 2020-12-17 21:28 | PDOC ---
Exam Note: Donte Note: Please also refer to the separate dictated note~for this date of service dictated separately.~Patient seen individually. Discussed the patient with Nursing staff reviewed the chart.~Reviewed interim history and current functioning. Reviewed vital signs,~Labs/ Radiology~and current medications noted below. Continue current treatment with the changes noted in the dictated addendum note Assessment: Vital Signs/I&O: Vital Signs Date Time Temp Pulse Resp B/P (MAP) Pulse Ox O2 Delivery O2 Flow Rate FiO2 12/17/20 15:14 98.1 88 17 131/81 (98) 94 12/16/20 15:00 Room Air I & O 12/16/20 12/16/20 12/17/20 15:00 23:00 07:00 Intake Total 360 ml 440 ml Balance 360 ml 440 ml Labs: Laboratory Tests Test 12/17/20 07:13 12/17/20 11:58 12/17/20 16:55 12/17/20 19:06 Glucose (Fingerstick) 156 mg/dL (70-99) H 141 mg/dL (70-99) H 129 mg/dL (70-99) H 141 mg/dL (70-99) H Current Medications: I have reviewed the current psychotropics carefully including drug interactions. Risk benefit ratio favors no change other than as noted in my dictated progress note. Diagnosis: Problems: (1) Mild cognitive impairment (2) Schizoaffective disorder, bipolar type (3) Anxiety disorder, unspecified (4) Intellectual disability (5) Impulse disorder, unspecified (6) Bipolar disorder, curr episode mixed, severe, with psychotic features RAJIV VELAZQUEZ MD Dec 17, 2020 21:28
[2020-12-18] MEDS: traZODone 100 MG TABLET. PO PRN ×3 (02:00→22:00)
[2020-12-18] MEDS: LEVOTHYROXINE 112 MCG TABLET PO SCH (05:34)
[2020-12-18 06:15] VITALS: BP 118/76
[2020-12-18 06:32] LABS: BASO % 0 % (0-3); EOS # 0.2 x10^3/uL (0.0-0.7); EOS % 3 % (0-3); HEMATOCRIT 38.3 % (36.0-47.0); LYMPH # 3.8 x10^3/uL (1.0-4.8); LYMPH % 39 % (24-48); MEAN CORPUSCULAR HEMOGLOBIN 29 pg (25-35); MEAN CORPUSCULAR HGB CONC 34 g/dL (31-37); MEAN CORPUSCULAR VOLUME 85 fL (79-100); MONO # 1.1 x10^3/uL (0.0-1.1); MONO % 11 % (0-9); NEUT # 4.8 x10^3uL (1.8-7.7); NEUT % 48 % (31-73); PLATELET COUNT 215 x10^3/uL (140-400); RED BLOOD COUNT 4.52 x10^6/uL (3.50-5.40); RED CELL DISTRIBUTION WIDTH 12.7 % (11.5-14.5)
[2020-12-18 06:46] LABS: ALBUMIN 2.9 g/dL (3.4-5.0); ALBUMIN/GLOBULIN RATIO 0.7 (1.0-1.7); CALCIUM 8.9 mg/dL (8.5-10.1); CREATININE 0.8 mg/dL (0.6-1.0); POTASSIUM 3.9 mmol/L (3.5-5.1); TOTAL BILIRUBIN 0.3 mg/dL (0.2-1.0); TOTAL PROTEIN 6.8 g/dL (6.4-8.2)
[2020-12-18] MEDS: INSULIN LISPRO 300 UNITS/3 ML VIAL. SQ SCH ×3 (08:00→17:34)
--- NOTE | 2020-12-18 08:27 | PDOC ---
Exam Note: Donte Note: This note is a late entry for 12/17/2020 covers elements not covered in my initial note. Subjective: The patient was seen face to face in the evening of 12/17/2020 with Estela COPELAND, reviewed the chart. The patient slept 4 hours previous night. I met with the patient in her room in the evening. The patient has had an awful day per nursing report. She has been sexually inappropriate, angry, threatening to fight other patients and staff. [facility] She ripped the mask off the face of the activity therapy staff, totally oblivious of her aggression, paranoid, psychotic. Review of Systems: No CV, , pulmonary, eye, ENT system symptoms on review. Mental Status Exam: The patient is reasonably oriented. Speech is coherent. Abstraction is fair. Computation is impaired. Language function is intact. Often verbal response is monosyllabic, paranoid, and psychotic. No active suicidal or homicidal ideation. Laboratory Data: Reviewed. Impression: Schizoaffective disorder, bipolar type, mixed with psychotic features. Anxiety disorder unspecified. Impulse control disorder unspecified. Plan: Start trazodone 25 mg 9 a.m., 1 p.m., 5 p.m. to help with her anxiety, agitation. Continue rest psychotropics unchanged. Valproic acid level therapeutic at 78. She has been started on Risperdal Consta. She remains on oral Risperdal in the interim. Assessment: Vital Signs/I&O: Vital Signs Date Time Temp Pulse Resp B/P (MAP) Pulse Ox O2 Delivery O2 Flow Rate FiO2 12/18/20 06:15 97.9 80 18 118/76 (90) 98 12/16/20 15:00 Room Air I & O 12/17/20 12/17/20 12/18/20 15:00 23:00 07:00 Intake Total 720 ml 900 ml Balance 720 ml 900 ml Labs: Laboratory Tests Test 12/17/20 11:58 12/17/20 16:55 12/17/20 19:06 12/18/20 05:53 Glucose (Fingerstick) 141 mg/dL (70-99) H 129 mg/dL (70-99) H 141 mg/dL (70-99) H White Blood Count 10.0 x10^3/uL (4.0-11.0) Red Blood Count 4.52 x10^6/uL (3.50-5.40) Hemoglobin 13.0 g/dL (12.0-15.5) Hematocrit 38.3 % (36.0-47.0) Mean Corpuscular Volume 85 fL (79-100) Mean Corpuscular Hemoglobin 29 pg (25-35) Mean Corpuscular Hemoglobin Concent 34 g/dL (31-37) Red Cell Distribution Width 12.7 % (11.5-14.5) Platelet Count 215 x10^3/uL (140-400) Neutrophils (%) (Auto) 48 % (31-73) Lymphocytes (%) (Auto) 39 % (24-48) Monocytes (%) (Auto) 11 % (0-9) H Eosinophils (%) (Auto) 3 % (0-3) Basophils (%) (Auto) 0 % (0-3) Neutrophils # (Auto) 4.8 x10^3uL (1.8-7.7) Lymphocytes # (Auto) 3.8 x10^3/uL (1.0-4.8) Monocytes # (Auto) 1.1 x10^3/uL (0.0-1.1) Eosinophils # (Auto) 0.2 x10^3/uL (0.0-0.7) Basophils # (Auto) 0.0 x10^3/uL (0.0-0.2) Sodium Level 143 mmol/L (136-145) Potassium Level 3.9 mmol/L (3.5-5.1) Chloride Level 106 mmol/L (98-107) Carbon Dioxide Level 27 mmol/L (21-32) Anion Gap 10 (6-14) Blood Urea Nitrogen 17 mg/dL (7-20) Creatinine 0.8 mg/dL (0.6-1.0) Estimated GFR (Cockcroft-Gault) 72.0 BUN/Creatinine Ratio 21 (6-20) H Glucose Level 110 mg/dL (70-99) H Calcium Level 8.9 mg/dL (8.5-10.1) Total Bilirubin 0.3 mg/dL (0.2-1.0) Aspartate Amino Transferase (AST) 15 U/L (15-37) Alanine Aminotransferase (ALT) 25 U/L (14-59) Alkaline Phosphatase 114 U/L (46-116) Total Protein 6.8 g/dL (6.4-8.2) Albumin 2.9 g/dL (3.4-5.0) L Albumin/Globulin Ratio 0.7 (1.0-1.7) L Test 12/18/20 07:41 Glucose (Fingerstick) 111 mg/dL (70-99) H Current Medications: Meds: Laboratory Tests Test 12/17/20 11:58 12/17/20 16:55 12/17/20 19:06 12/18/20 05:53 Glucose (Fingerstick) 141 mg/dL 129 mg/dL 141 mg/dL White Blood Count 10.0 x10^3/uL Red Blood Count 4.52 x10^6/uL Hemoglobin 13.0 g/dL Hematocrit 38.3 % Mean Corpuscular Volume 85 fL Mean Corpuscular Hemoglobin 29 pg Mean Corpuscular Hemoglobin Concent 34 g/dL Red Cell Distribution Width 12.7 % Platelet Count 215 x10^3/uL Neutrophils (%) (Auto) 48 % Lymphocytes (%) (Auto) 39 % Monocytes (%) (Auto) 11 % Eosinophils (%) (Auto) 3 % Basophils (%) (Auto) 0 % Neutrophils # (Auto) 4.8 x10^3uL Lymphocytes # (Auto) 3.8 x10^3/uL Monocytes # (Auto) 1.1 x10^3/uL Eosinophils # (Auto) 0.2 x10^3/uL Basophils # (Auto) 0.0 x10^3/uL Sodium Level 143 mmol/L Potassium Level 3.9 mmol/L Chloride Level 106 mmol/L Carbon Dioxide Level 27 mmol/L Anion Gap 10 Blood Urea Nitrogen 17 mg/dL Creatinine 0.8 mg/dL Estimated GFR (Cockcroft-Gault) 72.0 BUN/Creatinine Ratio 21 Glucose Level 110 mg/dL Calcium Level 8.9 mg/dL Total Bilirubin 0.3 mg/dL Aspartate Amino Transf (AST/SGOT) 15 U/L Alanine Aminotransferase (ALT/SGPT) 25 U/L Alkaline Phosphatase 114 U/L Total Protein 6.8 g/dL Albumin 2.9 g/dL Albumin/Globulin Ratio 0.7 Test 12/18/20 07:41 Glucose (Fingerstick) 111 mg/dL Current Medications Medications (Trade) Dose Ordered Sig/Leonides Route PRN Reason Start Time Stop Time Status Last Admin Dose Admin Multi-Ingredient Ointment (Analgesic [place]) 1 swathi PRN QID PRN TP MUSCLE PAIN 11/21/20 21:00 Al Hydroxide/Mg Hydroxide (Mylanta Plus Xs) 15 ml PRN AFTMEALHC PRN PO DYSPEPSIA 11/21/20 21:00 Magnesium Hydroxide (Milk Of Magnesia) 2,400 mg PRN QHS PRN PO 1ST CHOICE CONSTIPATION 11/21/20 21:00 Acetaminophen (Tylenol) 650 mg PRN Q4HRS PRN PO MILD PAIN / TEMP > 100.3'F 11/21/20 21:45 12/06/20 22:17 Amoxicillin/ Clavulanate Potassium (Augmentin 875/ 125mg) 1 tab BID PO 11/22/20 09:00 11/24/20 21:01 DC 11/24/20 20:55 Aspirin (Aspirin Enteric Coated) 81 mg DAILY PO 11/22/20 09:00 12/17/20 08:56 Bisacodyl (Dulcolax Tab) 5 mg PRN DAILY PRN PO 2ND CHOICE CONSTIPATION 11/21/20 21:45 Furosemide (Lasix) 40 mg DAILY PO 11/22/20 09:00 12/17/20 08:56 Acetaminophen/ Hydrocodone Bitart (Lortab 5/325) 1 tab PRN BID PRN PO mod-sev PAIN 11/21/20 21:45 12/08/20 17:03 DC 12/08/20 09:20 Ibuprofen (Motrin) 200 mg PRN Q6HRS PRN PO MILD PAIN / TEMP > 100.3'F 11/21/20 21:45 Cancel Albuterol/ Ipratropium (Duoneb) 3 ml PRN BID PRN NEB SHORTNESS OF BREATH 11/21/20 21:45 Levothyroxine Sodium (Synthroid) 112 mcg DAILY06 PO 11/22/20 06:00 12/18/20 05:34 Lorazepam (Ativan) 0.5 mg TID PO 11/21/20 22:00 12/03/20 18:47 DC 12/03/20 13:59 Zolpidem Tartrate (Ambien) 5 mg HS PO 11/21/20 22:00 11/27/20 18:02 DC 11/26/20 20:44 Betamethasone Dipropion Augmented (Betamethasone Dp Aug 0.05% Cream) 1 swathi PRN BID PRN TP RASH 11/21/20 22:15 Multi-Ingred Cream/Lotion/Oil/ Oint (Hydrocerin) 1 swathi PRN BID PRN TP Dry Hands 11/21/20 22:00 Guaifenesin (Robitussin Dm) 10 ml PRN Q8HRS PRN PO COUGH 11/21/20 22:00 Insulin Human Lispro (HumaLOG) 20 units TIDWMEALS SQ 11/22/20 08:00 12/17/20 17:14 Insulin Glargine (Lantus Syringe) 30 unit BID SQ 11/21/20 22:00 12/17/20 21:32 Magnesium Chloride (Mag Delay) 64 mg DAILY PO 11/22/20 09:00 12/17/20 08:56 Non-Formulary Medication (Menthol (Biofreeze)) 1 swathi QID PRN TP MUSCLE PAIN 11/21/20 21:45 UNV Pantoprazole Sodium (Protonix) 40 mg DAILY PO 11/22/20 09:00 12/17/20 08:57 Oxybutynin Chloride (Ditropan) 5 mg DAILY PO 11/22/20 09:00 12/17/20 08:57 Polyethylene Glycol (miraLAX) 17 gm DAILY PO 11/22/20 09:00 12/16/20 08:45 Potassium Chloride (Klor-Con) 10 meq DAILY PO 11/22/20 09:00 12/17/20 08:56 Propranolol HCl (Inderal) 40 mg DAILY PO 11/22/20 09:00 12/17/20 08:57 Quetiapine Fumarate (SEROquel) 600 mg HS PO 11/21/20 22:15 12/03/20 18:47 DC 12/02/20 20:08 Saliva Substitute (Biotene Moisturizing Mouth) 2 spray PRN TID PRN PO DRY MOUTH 11/21/20 22:15 Non-Formulary Medication (Semaglutide (Ozempic)) 1 mg QFR SQ 11/23/20 16:00 12/09/20 10:20 DC Pentoxifylline (TRENtal) 400 mg TIDWMEALS PO 11/22/20 08:00 12/17/20 17:08 Vitamin D (Vitamin D3) 2,000 unit DAILY PO 11/22/20 09:00 12/17/20 09:00 Lactobacillus Rhamnosus (Culturelle) 1 cap BID PO 11/22/20 09:00 12/17/20 19:45 Mirtazapine (Remeron) 7.5 mg QHS PO 11/27/20 21:00 12/11/20 17:03 DC 12/10/20 20:08 Divalproex Sodium (Depakote Er) 500 mg QHS PO 11/28/20 21:00 12/01/20 17:12 DC 11/30/20 20:45 Divalproex Sodium (Depakote Er) 1,000 mg QHS PO 12/01/20 21:00 12/17/20 19:46 Bupropion HCl (Wellbutrin Xl) 150 mg DAILY PO 12/03/20 09:00 12/09/20 16:24 DC 12/09/20 08:14 Quetiapine Fumarate (SEROquel) 200 mg TID PO 12/03/20 21:00 12/06/20 11:47 DC 12/06/20 07:48 Clonazepam (KlonoPIN) 0.5 mg TID PO 12/03/20 21:00 12/17/20 19:45 Trazodone HCl (Desyrel) 100 mg PRN QHS PRN PO INSOMNIA, MAY REPEAT X1 12/04/20 19:15 12/18/20 02:00 Risperidone (RisperDAL) 0.5 mg 0900,1300,1700 PO 12/06/20 13:00 12/07/20 17:12 DC 12/07/20 09:00 Risperidone (RisperDAL) 1.5 mg DAILY PO 12/08/20 09:00 12/07/20 19:50 DC Risperidone (RisperDAL) 1.5 mg DAILY PO 12/07/20 20:00 12/09/20 16:24 DC 12/09/20 08:16 Acetaminophen/ Hydrocodone Bitart (Lortab 5/325) 1 tab PRN TID PRN PO mod-sev PAIN 12/08/20 17:00 12/16/20 13:10 Risperidone (RisperDAL) 2 mg DAILY PO 12/10/20 09:00 12/13/20 12:47 DC 12/13/20 09:29 Mirtazapine (Remeron) 15 mg QHS PO 12/11/20 21:00 12/17/20 19:46 Risperidone (RisperDAL) 3 mg DAILY PO 12/14/20 09:00 12/17/20 12:30 Risperidone (RisperDAL CONSTA) 25 mg Q2WKS IM 12/14/20 09:00 12/14/20 09:35 Quetiapine Fumarate (SEROquel) 50 mg PRN Q2HR PRN PO ANXIETY / AGITATION 12/16/20 04:15 12/16/20 04:41 Lorazepam (Ativan) 0.5 mg PRN Q2HR PRN PO ANXIETY / AGITATION 12/16/20 04:15 12/17/20 09:49 Trazodone HCl (Desyrel) 25 mg 0900,1300,1700 PO 12/18/20 09:00 I have reviewed the current psychotropics carefully including drug interactions. Risk benefit ratio favors no change other than as noted in my dictated progress note. Diagnosis: Problems: (1) Mild cognitive impairment (2) Schizoaffective disorder, bipolar type (3) Anxiety disorder, unspecified (4) Intellectual disability (5) Impulse disorder, unspecified (6) Bipolar disorder, curr episode mixed, severe, with psychotic features RAJIV VELAZQUEZ MD Dec 18, 2020 08:27
[2020-12-18] MEDS: traZODone 50 MG TABLET. PO SCH ×3 (09:00→17:32)
[2020-12-18] MEDS: MAGNESIUM CHLORIDE ER 64 MG TABLET.ER PO SCH (10:14)
[2020-12-18] MEDS: ASPIRIN ENTERIC COATED 81 MG TABLET.DR. PO SCH (10:14)
[2020-12-18] MEDS: CHOLECALCIFEROL (VITAMIN D3) 1,000 UNIT TABLET PO SCH (10:14)
[2020-12-18] MEDS: PENTOXIFYLLINE ER 400 MG TABLET.ER. PO SCH ×3 (10:14→17:32)
[2020-12-18] MEDS: FUROSEMIDE 40 MG TABLET PO SCH (10:15)
[2020-12-18] MEDS: POLYETHYLENE GLYCOL 3350 17 GM PACKET. PO SCH (10:15)
[2020-12-18] MEDS: clonazePAM 0.5 MG TABLET PO SCH ×3 (10:15→19:47)
[2020-12-18] MEDS: LACTOBACILLUS RHAMNOSUS GG 1 CAPSULE. PO SCH ×2 (10:15→19:46)
[2020-12-18] MEDS: POTASSIUM CHLORIDE 10 MEQ TABLET.ER. PO SCH (10:15)
[2020-12-18] MEDS: OXYBUTYNIN CHLORIDE 5 MG TABLET PO SCH (10:15)
[2020-12-18] MEDS: PANTOPRAZOLE 40 MG TABLET. PO SCH (10:15)
[2020-12-18] MEDS: risperiDONE ORAL 1 MG/ML 30ml BOTTLE. PO SCH (10:18)
[2020-12-18] MEDS: PROPRANOLOL 20 MG TABLET. PO SCH (10:19)
[2020-12-18] MEDS: INSULIN GLARGINE SYRINGE. SQ SCH ×2 (10:24→21:24)
[2020-12-18 15:43] VITALS: BP 108/70
[2020-12-18] MEDS: DIVALPROEX ER 500 MG TAB.ER.24H PO SCH (19:47)
[2020-12-18] MEDS: MIRTAZAPINE 15 MG TABLET PO SCH (19:47)
--- NOTE | 2020-12-18 20:50 | PDOC ---
Exam Note: Donte Note: Please also refer to the separate dictated note~for this date of service dictated separately.~Patient seen individually. Discussed the patient with Nursing staff reviewed the chart.~Reviewed interim history and current functioning. Reviewed vital signs,~Labs/ Radiology~and current medications noted below. Continue current treatment with the changes noted in the dictated addendum note Assessment: Vital Signs/I&O: Vital Signs Date Time Temp Pulse Resp B/P (MAP) Pulse Ox O2 Delivery O2 Flow Rate FiO2 12/18/20 15:43 97.4 72 16 108/70 (83) 97 12/16/20 15:00 Room Air I & O 12/17/20 12/17/20 12/18/20 15:00 23:00 07:00 Intake Total 720 ml 900 ml Balance 720 ml 900 ml Labs: Laboratory Tests Test 12/18/20 05:53 12/18/20 07:41 12/18/20 11:50 12/18/20 19:12 White Blood Count 10.0 x10^3/uL (4.0-11.0) Red Blood Count 4.52 x10^6/uL (3.50-5.40) Hemoglobin 13.0 g/dL (12.0-15.5) Hematocrit 38.3 % (36.0-47.0) Mean Corpuscular Volume 85 fL (79-100) Mean Corpuscular Hemoglobin 29 pg (25-35) Mean Corpuscular Hemoglobin Concent 34 g/dL (31-37) Red Cell Distribution Width 12.7 % (11.5-14.5) Platelet Count 215 x10^3/uL (140-400) Neutrophils (%) (Auto) 48 % (31-73) Lymphocytes (%) (Auto) 39 % (24-48) Monocytes (%) (Auto) 11 % (0-9) H Eosinophils (%) (Auto) 3 % (0-3) Basophils (%) (Auto) 0 % (0-3) Neutrophils # (Auto) 4.8 x10^3uL (1.8-7.7) Lymphocytes # (Auto) 3.8 x10^3/uL (1.0-4.8) Monocytes # (Auto) 1.1 x10^3/uL (0.0-1.1) Eosinophils # (Auto) 0.2 x10^3/uL (0.0-0.7) Basophils # (Auto) 0.0 x10^3/uL (0.0-0.2) Sodium Level 143 mmol/L (136-145) Potassium Level 3.9 mmol/L (3.5-5.1) Chloride Level 106 mmol/L (98-107) Carbon Dioxide Level 27 mmol/L (21-32) Anion Gap 10 (6-14) Blood Urea Nitrogen 17 mg/dL (7-20) Creatinine 0.8 mg/dL (0.6-1.0) Estimated GFR (Cockcroft-Gault) 72.0 BUN/Creatinine Ratio 21 (6-20) H Glucose Level 110 mg/dL (70-99) H Calcium Level 8.9 mg/dL (8.5-10.1) Total Bilirubin 0.3 mg/dL (0.2-1.0) Aspartate Amino Transferase (AST) 15 U/L (15-37) Alanine Aminotransferase (ALT) 25 U/L (14-59) Alkaline Phosphatase 114 U/L (46-116) Total Protein 6.8 g/dL (6.4-8.2) Albumin 2.9 g/dL (3.4-5.0) L Albumin/Globulin Ratio 0.7 (1.0-1.7) L Glucose (Fingerstick) 111 mg/dL (70-99) H 207 mg/dL (70-99) H 159 mg/dL (70-99) H Current Medications: Meds: Laboratory Tests Test 12/18/20 05:53 12/18/20 07:41 12/18/20 11:50 12/18/20 19:12 White Blood Count 10.0 x10^3/uL Red Blood Count 4.52 x10^6/uL Hemoglobin 13.0 g/dL Hematocrit 38.3 % Mean Corpuscular Volume 85 fL Mean Corpuscular Hemoglobin 29 pg Mean Corpuscular Hemoglobin Concent 34 g/dL Red Cell Distribution Width 12.7 % Platelet Count 215 x10^3/uL Neutrophils (%) (Auto) 48 % Lymphocytes (%) (Auto) 39 % Monocytes (%) (Auto) 11 % Eosinophils (%) (Auto) 3 % Basophils (%) (Auto) 0 % Neutrophils # (Auto) 4.8 x10^3uL Lymphocytes # (Auto) 3.8 x10^3/uL Monocytes # (Auto) 1.1 x10^3/uL Eosinophils # (Auto) 0.2 x10^3/uL Basophils # (Auto) 0.0 x10^3/uL Sodium Level 143 mmol/L Potassium Level 3.9 mmol/L Chloride Level 106 mmol/L Carbon Dioxide Level 27 mmol/L Anion Gap 10 Blood Urea Nitrogen 17 mg/dL Creatinine 0.8 mg/dL Estimated GFR (Cockcroft-Gault) 72.0 BUN/Creatinine Ratio 21 Glucose Level 110 mg/dL Calcium Level 8.9 mg/dL Total Bilirubin 0.3 mg/dL Aspartate Amino Transf (AST/SGOT) 15 U/L Alanine Aminotransferase (ALT/SGPT) 25 U/L Alkaline Phosphatase 114 U/L Total Protein 6.8 g/dL Albumin 2.9 g/dL Albumin/Globulin Ratio 0.7 Glucose (Fingerstick) 111 mg/dL 207 mg/dL 159 mg/dL Current Medications Medications (Trade) Dose Ordered Sig/Leonides Route PRN Reason Start Time Stop Time Status Last Admin Dose Admin Multi-Ingredient Ointment (Analgesic [place]) 1 swathi PRN QID PRN TP MUSCLE PAIN 11/21/20 21:00 Al Hydroxide/Mg Hydroxide (Mylanta Plus Xs) 15 ml PRN AFTMEALHC PRN PO DYSPEPSIA 11/21/20 21:00 Magnesium Hydroxide (Milk Of Magnesia) 2,400 mg PRN QHS PRN PO 1ST CHOICE CONSTIPATION 11/21/20 21:00 Acetaminophen (Tylenol) 650 mg PRN Q4HRS PRN PO MILD PAIN / TEMP > 100.3'F 11/21/20 21:45 12/06/20 22:17 Amoxicillin/ Clavulanate Potassium (Augmentin 875/ 125mg) 1 tab BID PO 11/22/20 09:00 11/24/20 21:01 DC 11/24/20 20:55 Aspirin (Aspirin Enteric Coated) 81 mg DAILY PO 11/22/20 09:00 12/18/20 10:14 Bisacodyl (Dulcolax Tab) 5 mg PRN DAILY PRN PO 2ND CHOICE CONSTIPATION 11/21/20 21:45 Furosemide (Lasix) 40 mg DAILY PO 11/22/20 09:00 12/18/20 10:15 Acetaminophen/ Hydrocodone Bitart (Lortab 5/325) 1 tab PRN BID PRN PO mod-sev PAIN 11/21/20 21:45 12/08/20 17:03 DC 12/08/20 09:20 Ibuprofen (Motrin) 200 mg PRN Q6HRS PRN PO MILD PAIN / TEMP > 100.3'F 11/21/20 21:45 Cancel Albuterol/ Ipratropium (Duoneb) 3 ml PRN BID PRN NEB SHORTNESS OF BREATH 11/21/20 21:45 Levothyroxine Sodium (Synthroid) 112 mcg DAILY06 PO 11/22/20 06:00 12/18/20 05:34 Lorazepam (Ativan) 0.5 mg TID PO 11/21/20 22:00 12/03/20 18:47 DC 12/03/20 13:59 Zolpidem Tartrate (Ambien) 5 mg HS PO 11/21/20 22:00 11/27/20 18:02 DC 11/26/20 20:44 Betamethasone Dipropion Augmented (Betamethasone Dp Aug 0.05% Cream) 1 swathi PRN BID PRN TP RASH 11/21/20 22:15 Multi-Ingred Cream/Lotion/Oil/ Oint (Hydrocerin) 1 swathi PRN BID PRN TP Dry Hands 11/21/20 22:00 Guaifenesin (Robitussin Dm) 10 ml PRN Q8HRS PRN PO COUGH 11/21/20 22:00 Insulin Human Lispro (HumaLOG) 20 units TIDWMEALS SQ 11/22/20 08:00 12/18/20 17:34 Insulin Glargine (Lantus Syringe) 30 unit BID SQ 11/21/20 22:00 12/18/20 10:24 Magnesium Chloride (Mag Delay) 64 mg DAILY PO 11/22/20 09:00 12/18/20 10:14 Non-Formulary Medication (Menthol (Biofreeze)) 1 swathi QID PRN TP MUSCLE PAIN 11/21/20 21:45 UNV Pantoprazole Sodium (Protonix) 40 mg DAILY PO 11/22/20 09:00 12/18/20 10:15 Oxybutynin Chloride (Ditropan) 5 mg DAILY PO 11/22/20 09:00 2/9/21 10:15 Polyethylene Glycol (miraLAX) 17 gm DAILY PO 11/22/20 09:00 12/18/20 10:15 Potassium Chloride (Klor-Con) 10 meq DAILY PO 11/22/20 09:00 12/18/20 10:15 Propranolol HCl (Inderal) 40 mg DAILY PO 11/22/20 09:00 12/18/20 10:19 Quetiapine Fumarate (SEROquel) 600 mg HS PO 11/21/20 22:15 12/03/20 18:47 DC 12/02/20 20:08 Saliva Substitute (Biotene Moisturizing Mouth) 2 spray PRN TID PRN PO DRY MOUTH 11/21/20 22:15 Non-Formulary Medication (Semaglutide (Ozempic)) 1 mg QFR SQ 11/23/20 16:00 12/09/20 10:20 DC Pentoxifylline (TRENtal) 400 mg TIDWMEALS PO 11/22/20 08:00 12/18/20 17:32 Vitamin D (Vitamin D3) 2,000 unit DAILY PO 11/22/20 09:00 12/18/20 10:14 Lactobacillus Rhamnosus (Culturelle) 1 cap BID PO 11/22/20 09:00 12/18/20 19:46 Mirtazapine (Remeron) 7.5 mg QHS PO 11/27/20 21:00 12/11/20 17:03 DC 12/10/20 20:08 Divalproex Sodium (Depakote Er) 500 mg QHS PO 11/28/20 21:00 12/01/20 17:12 DC 11/30/20 20:45 Divalproex Sodium (Depakote Er) 1,000 mg QHS PO 12/01/20 21:00 12/18/20 19:47 Bupropion HCl (Wellbutrin Xl) 150 mg DAILY PO 12/03/20 09:00 12/09/20 16:24 DC 12/09/20 08:14 Quetiapine Fumarate (SEROquel) 200 mg TID PO 12/03/20 21:00 12/06/20 11:47 DC 12/06/20 07:48 Clonazepam (KlonoPIN) 0.5 mg TID PO 12/03/20 21:00 2/9/21 19:47 Trazodone HCl (Desyrel) 100 mg PRN QHS PRN PO INSOMNIA, MAY REPEAT X1 12/04/20 19:15 12/18/20 19:47 Risperidone (RisperDAL) 0.5 mg 0900,1300,1700 PO 12/06/20 13:00 12/07/20 17:12 DC 12/07/20 09:00 Risperidone (RisperDAL) 1.5 mg DAILY PO 12/08/20 09:00 12/07/20 19:50 DC Risperidone (RisperDAL) 1.5 mg DAILY PO 12/07/20 20:00 12/09/20 16:24 DC 12/09/20 08:16 Acetaminophen/ Hydrocodone Bitart (Lortab 5/325) 1 tab PRN TID PRN PO mod-sev PAIN 12/08/20 17:00 12/16/20 13:10 Risperidone (RisperDAL) 2 mg DAILY PO 12/10/20 09:00 12/13/20 12:47 DC 12/13/20 09:29 Mirtazapine (Remeron) 15 mg QHS PO 12/11/20 21:00 12/18/20 19:47 Risperidone (RisperDAL) 3 mg DAILY PO 12/14/20 09:00 12/18/20 10:18 Risperidone (RisperDAL CONSTA) 25 mg Q2WKS IM 12/14/20 09:00 12/14/20 09:35 Quetiapine Fumarate (SEROquel) 50 mg PRN Q2HR PRN PO ANXIETY / AGITATION 12/16/20 04:15 12/16/20 04:41 Lorazepam (Ativan) 0.5 mg PRN Q2HR PRN PO ANXIETY / AGITATION 12/16/20 04:15 12/17/20 09:49 Trazodone HCl (Desyrel) 25 mg 0900,1300,1700 PO 12/18/20 09:00 12/18/20 17:32 Current Medications Medications (Trade) Dose Ordered Sig/Leonides Route PRN Reason Start Time Stop Time Status Last Admin Dose Admin Trazodone HCl (Desyrel) 25 mg 0900,1300,1700 PO 12/18/20 09:00 12/18/20 17:32 I have reviewed the current psychotropics carefully including drug interactions. Risk benefit ratio favors no change other than as noted in my dictated progress note. Diagnosis: Problems: (1) Schizoaffective disorder, bipolar type (2) Anxiety disorder, unspecified (3) Intellectual disability (4) Impulse disorder, unspecified (5) Bipolar disorder, curr episode mixed, severe, with psychotic features RAJIV VELAZQUEZ MD Dec 18, 2020 20:50
[2020-12-18] MEDS: LORazepam 0.5 MG TABLET PO PRN (22:41)
[2020-12-19] MEDS: LEVOTHYROXINE 112 MCG TABLET PO SCH (05:29)
[2020-12-19 05:54] VITALS: BP 133/80
--- NOTE | 2020-12-19 08:24 | PDOC ---
Exam Note: Donte Note: This note is a late entry for 12/18/2020 covers elements not covered in my initial note. Subjective: The patient was seen on telehealth rounds in the evening of 12/18/2020 with Estela COPELAND, discussed and reviewed the chart. The patient slept 1 hour previous night. She had a difficult night, anxious, restless, paranoid but much better today. She slept till 10.30 a.m. No delusions today. Review of Systems: Positive for some tiredness. No CV, , pulmonary, eye, ENT system symptoms on review. Mental Status Exam: The patient is oriented to herself and situation. Speech has moderate latency. Often response is monosyllabic, less paranoid. Abstraction is fair. Computation is impaired. Language function is intact. No suicidal or homicidal ideation. Laboratory Data: Reviewed. Impression: Schizoaffective disorder, bipolar type, mixed with psychotic features. Anxiety disorder unspecified. Impulse control disorder unspecified. Plan: No change from initial note. Assessment: Vital Signs/I&O: Vital Signs Date Time Temp Pulse Resp B/P (MAP) Pulse Ox O2 Delivery O2 Flow Rate FiO2 12/19/20 05:54 97.3 80 20 133/80 (97) 97 12/16/20 15:00 Room Air I & O 12/18/20 12/18/20 12/19/20 15:00 23:00 07:00 Intake Total 960 ml 480 ml Balance 960 ml 480 ml Labs: Laboratory Tests Test 12/18/20 11:50 12/18/20 19:12 12/19/20 07:17 Glucose (Fingerstick) 207 mg/dL (70-99) H 159 mg/dL (70-99) H 137 mg/dL (70-99) H Current Medications: Meds: Laboratory Tests Test 12/18/20 11:50 12/18/20 19:12 12/19/20 07:17 Glucose (Fingerstick) 207 mg/dL 159 mg/dL 137 mg/dL Current Medications Medications (Trade) Dose Ordered Sig/Leonides Route PRN Reason Start Time Stop Time Status Last Admin Dose Admin Multi-Ingredient Ointment (Analgesic [place]) 1 swathi PRN QID PRN TP MUSCLE PAIN 11/21/20 21:00 Al Hydroxide/Mg Hydroxide (Mylanta Plus Xs) 15 ml PRN AFTMEALHC PRN PO DYSPEPSIA 11/21/20 21:00 Magnesium Hydroxide (Milk Of Magnesia) 2,400 mg PRN QHS PRN PO 1ST CHOICE CONSTIPATION 11/21/20 21:00 Acetaminophen (Tylenol) 650 mg PRN Q4HRS PRN PO MILD PAIN / TEMP > 100.3'F 11/21/20 21:45 12/06/20 22:17 Amoxicillin/ Clavulanate Potassium (Augmentin 875/ 125mg) 1 tab BID PO 11/22/20 09:00 11/24/20 21:01 DC 11/24/20 20:55 Aspirin (Aspirin Enteric Coated) 81 mg DAILY PO 11/22/20 09:00 12/18/20 10:14 Bisacodyl (Dulcolax Tab) 5 mg PRN DAILY PRN PO 2ND CHOICE CONSTIPATION 11/21/20 21:45 Furosemide (Lasix) 40 mg DAILY PO 11/22/20 09:00 12/18/20 10:15 Acetaminophen/ Hydrocodone Bitart (Lortab 5/325) 1 tab PRN BID PRN PO mod-sev PAIN 11/21/20 21:45 12/08/20 17:03 DC 12/08/20 09:20 Ibuprofen (Motrin) 200 mg PRN Q6HRS PRN PO MILD PAIN / TEMP > 100.3'F 11/21/20 21:45 Cancel Albuterol/ Ipratropium (Duoneb) 3 ml PRN BID PRN NEB SHORTNESS OF BREATH 11/21/20 21:45 Levothyroxine Sodium (Synthroid) 112 mcg DAILY06 PO 11/22/20 06:00 12/19/20 05:29 Lorazepam (Ativan) 0.5 mg TID PO 11/21/20 22:00 12/03/20 18:47 DC 12/03/20 13:59 Zolpidem Tartrate (Ambien) 5 mg HS PO 11/21/20 22:00 11/27/20 18:02 DC 11/26/20 20:44 Betamethasone Dipropion Augmented (Betamethasone Dp Aug 0.05% Cream) 1 swathi PRN BID PRN TP RASH 11/21/20 22:15 Multi-Ingred Cream/Lotion/Oil/ Oint (Hydrocerin) 1 swathi PRN BID PRN TP Dry Hands 11/21/20 22:00 Guaifenesin (Robitussin Dm) 10 ml PRN Q8HRS PRN PO COUGH 11/21/20 22:00 Insulin Human Lispro (HumaLOG) 20 units TIDWMEALS SQ 11/22/20 08:00 12/18/20 17:34 Insulin Glargine (Lantus Syringe) 30 unit BID SQ 11/21/20 22:00 12/18/20 21:24 Magnesium Chloride (Mag Delay) 64 mg DAILY PO 11/22/20 09:00 12/18/20 10:14 Non-Formulary Medication (Menthol (Biofreeze)) 1 swathi QID PRN TP MUSCLE PAIN 11/21/20 21:45 UNV Pantoprazole Sodium (Protonix) 40 mg DAILY PO 11/22/20 09:00 12/18/20 10:15 Oxybutynin Chloride (Ditropan) 5 mg DAILY PO 11/22/20 09:00 12/18/20 10:15 Polyethylene Glycol (miraLAX) 17 gm DAILY PO 11/22/20 09:00 12/18/20 10:15 Potassium Chloride (Klor-Con) 10 meq DAILY PO 11/22/20 09:00 12/18/20 10:15 Propranolol HCl (Inderal) 40 mg DAILY PO 11/22/20 09:00 12/18/20 10:19 Quetiapine Fumarate (SEROquel) 600 mg HS PO 11/21/20 22:15 12/03/20 18:47 DC 12/02/20 20:08 Saliva Substitute (Biotene Moisturizing Mouth) 2 spray PRN TID PRN PO DRY MOUTH 11/21/20 22:15 Non-Formulary Medication (Semaglutide (Ozempic)) 1 mg QFR SQ 11/23/20 16:00 12/09/20 10:20 DC Pentoxifylline (TRENtal) 400 mg TIDWMEALS PO 11/22/20 08:00 12/18/20 17:32 Vitamin D (Vitamin D3) 2,000 unit DAILY PO 11/22/20 09:00 12/18/20 10:14 Lactobacillus Rhamnosus (Culturelle) 1 cap BID PO 11/22/20 09:00 12/18/20 19:46 Mirtazapine (Remeron) 7.5 mg QHS PO 11/27/20 21:00 12/11/20 17:03 DC 12/10/20 20:08 Divalproex Sodium (Depakote Er) 500 mg QHS PO 11/28/20 21:00 12/01/20 17:12 DC 11/30/20 20:45 Divalproex Sodium (Depakote Er) 1,000 mg QHS PO 12/01/20 21:00 12/18/20 19:47 Bupropion HCl (Wellbutrin Xl) 150 mg DAILY PO 12/03/20 09:00 12/09/20 16:24 DC 12/09/20 08:14 Quetiapine Fumarate (SEROquel) 200 mg TID PO 12/03/20 21:00 12/06/20 11:47 DC 12/06/20 07:48 Clonazepam (KlonoPIN) 0.5 mg TID PO 12/03/20 21:00 12/18/20 19:47 Trazodone HCl (Desyrel) 100 mg PRN QHS PRN PO INSOMNIA, MAY REPEAT X1 12/04/20 19:15 12/18/20 22:00 Risperidone (RisperDAL) 0.5 mg 0900,1300,1700 PO 12/06/20 13:00 12/07/20 17:12 DC 12/07/20 09:00 Risperidone (RisperDAL) 1.5 mg DAILY PO 12/08/20 09:00 12/07/20 19:50 DC Risperidone (RisperDAL) 1.5 mg DAILY PO 12/07/20 20:00 12/09/20 16:24 DC 12/09/20 08:16 Acetaminophen/ Hydrocodone Bitart (Lortab 5/325) 1 tab PRN TID PRN PO mod-sev PAIN 12/08/20 17:00 12/16/20 13:10 Risperidone (RisperDAL) 2 mg DAILY PO 12/10/20 09:00 12/13/20 12:47 DC 12/13/20 09:29 Mirtazapine (Remeron) 15 mg QHS PO 12/11/20 21:00 12/18/20 19:47 Risperidone (RisperDAL) 3 mg DAILY PO 12/14/20 09:00 12/18/20 10:18 Risperidone (RisperDAL CONSTA) 25 mg Q2WKS IM 12/14/20 09:00 12/14/20 09:35 Quetiapine Fumarate (SEROquel) 50 mg PRN Q2HR PRN PO ANXIETY / AGITATION 12/16/20 04:15 12/16/20 04:41 Lorazepam (Ativan) 0.5 mg PRN Q2HR PRN PO ANXIETY / AGITATION 12/16/20 04:15 12/18/20 22:41 Trazodone HCl (Desyrel) 25 mg 0900,1300,1700 PO 12/18/20 09:00 12/18/20 17:32 Current Medications Medications (Trade) Dose Ordered Sig/Leonides Route PRN Reason Start Time Stop Time Status Last Admin Dose Admin Trazodone HCl (Desyrel) 25 mg 0900,1300,1700 PO 12/18/20 09:00 12/18/20 17:32 I have reviewed the current psychotropics carefully including drug interactions. Risk benefit ratio favors no change other than as noted in my dictated progress note. Diagnosis: Problems: (1) Mild cognitive impairment (2) Schizoaffective disorder, bipolar type (3) Anxiety disorder, unspecified (4) Intellectual disability (5) Impulse disorder, unspecified (6) Bipolar disorder, curr episode mixed, severe, with psychotic features RAJIV VELAZQUEZ MD Dec 19, 2020 08:24
[2020-12-19] MEDS: POLYETHYLENE GLYCOL 3350 17 GM PACKET. PO SCH (08:28)
[2020-12-19] MEDS: risperiDONE ORAL 1 MG/ML 30ml BOTTLE. PO SCH (08:28)
[2020-12-19] MEDS: POTASSIUM CHLORIDE 10 MEQ TABLET.ER. PO SCH (08:31)
[2020-12-19] MEDS: traZODone 50 MG TABLET. PO SCH ×3 (08:31→17:14)
[2020-12-19] MEDS: OXYBUTYNIN CHLORIDE 5 MG TABLET PO SCH (08:31)
[2020-12-19] MEDS: PANTOPRAZOLE 40 MG TABLET. PO SCH (08:31)
[2020-12-19] MEDS: MAGNESIUM CHLORIDE ER 64 MG TABLET.ER PO SCH (08:31)
[2020-12-19] MEDS: ASPIRIN ENTERIC COATED 81 MG TABLET.DR. PO SCH (08:31)
[2020-12-19] MEDS: PENTOXIFYLLINE ER 400 MG TABLET.ER. PO SCH ×3 (08:31→17:14)
[2020-12-19] MEDS: FUROSEMIDE 40 MG TABLET PO SCH (08:32)
[2020-12-19] MEDS: clonazePAM 0.5 MG TABLET PO SCH ×3 (08:32→20:25)
[2020-12-19] MEDS: LACTOBACILLUS RHAMNOSUS GG 1 CAPSULE. PO SCH ×2 (08:32→20:25)
[2020-12-19] MEDS: CHOLECALCIFEROL (VITAMIN D3) 1,000 UNIT TABLET PO SCH (08:32)
[2020-12-19] MEDS: INSULIN LISPRO 300 UNITS/3 ML VIAL. SQ SCH ×3 (08:35→17:00)
[2020-12-19] MEDS: PROPRANOLOL 20 MG TABLET. PO SCH (08:37)
[2020-12-19] MEDS: INSULIN GLARGINE SYRINGE. SQ SCH ×2 (08:37→21:06)
[2020-12-19] MEDS: HYDROcodone/APAP 5/325MG 1 TAB TABLET PO PRN (15:01)
[2020-12-19 16:23] VITALS: BP 107/69
[2020-12-19] MEDS: MIRTAZAPINE 15 MG TABLET PO SCH (20:25)
[2020-12-19] MEDS: TEMAZEPAM 15 MG CAPSULE PO PRN (20:25)
[2020-12-19] MEDS: DIVALPROEX ER 500 MG TAB.ER.24H PO SCH (20:25)
--- NOTE | 2020-12-19 20:55 | PDOC ---
Exam Note: Donte Note: Please also refer to the separate dictated note~for this date of service dictated separately.~Patient seen individually. Discussed the patient with Nursing staff reviewed the chart.~Reviewed interim history and current functioning. Reviewed vital signs,~Labs/ Radiology~and current medications noted below. Continue current treatment with the changes noted in the dictated addendum note Assessment: Vital Signs/I&O: Vital Signs Date Time Temp Pulse Resp B/P (MAP) Pulse Ox O2 Delivery O2 Flow Rate FiO2 12/19/20 16:39 96 12/19/20 16:23 98.0 64 20 107/69 (82) 12/16/20 15:00 Room Air I & O 12/18/20 12/18/20 12/19/20 15:00 23:00 07:00 Intake Total 960 ml 480 ml Balance 960 ml 480 ml Labs: Laboratory Tests Test 12/19/20 07:17 12/19/20 12:09 12/19/20 16:51 12/19/20 19:25 Glucose (Fingerstick) 137 mg/dL (70-99) H 138 mg/dL (70-99) H 62 mg/dL (70-99) L 168 mg/dL (70-99) H Current Medications: Meds: Laboratory Tests Test 12/19/20 07:17 12/19/20 12:09 12/19/20 16:51 12/19/20 19:25 Glucose (Fingerstick) 137 mg/dL 138 mg/dL 62 mg/dL 168 mg/dL Current Medications Medications (Trade) Dose Ordered Sig/Leonides Route PRN Reason Start Time Stop Time Status Last Admin Dose Admin Multi-Ingredient Ointment (Analgesic [employer]) 1 swathi PRN QID PRN TP MUSCLE PAIN 11/21/20 21:00 Al Hydroxide/Mg Hydroxide (Mylanta Plus Xs) 15 ml PRN AFTMEALHC PRN PO DYSPEPSIA 11/21/20 21:00 Magnesium Hydroxide (Milk Of Magnesia) 2,400 mg PRN QHS PRN PO 1ST CHOICE CONSTIPATION 11/21/20 21:00 Acetaminophen (Tylenol) 650 mg PRN Q4HRS PRN PO MILD PAIN / TEMP > 100.3'F 11/21/20 21:45 12/06/20 22:17 Amoxicillin/ Clavulanate Potassium (Augmentin 875/ 125mg) 1 tab BID PO 11/22/20 09:00 11/24/20 21:01 DC 11/24/20 20:55 Aspirin (Aspirin Enteric Coated) 81 mg DAILY PO 11/22/20 09:00 12/19/20 08:31 Bisacodyl (Dulcolax Tab) 5 mg PRN DAILY PRN PO 2ND CHOICE CONSTIPATION 11/21/20 21:45 Furosemide (Lasix) 40 mg DAILY PO 11/22/20 09:00 12/19/20 08:32 Acetaminophen/ Hydrocodone Bitart (Lortab 5/325) 1 tab PRN BID PRN PO mod-sev PAIN 11/21/20 21:45 12/08/20 17:03 DC 12/08/20 09:20 Ibuprofen (Motrin) 200 mg PRN Q6HRS PRN PO MILD PAIN / TEMP > 100.3'F 11/21/20 21:45 Cancel Albuterol/ Ipratropium (Duoneb) 3 ml PRN BID PRN NEB SHORTNESS OF BREATH 11/21/20 21:45 Levothyroxine Sodium (Synthroid) 112 mcg DAILY06 PO 11/22/20 06:00 12/19/20 05:29 Lorazepam (Ativan) 0.5 mg TID PO 11/21/20 22:00 12/03/20 18:47 DC 12/03/20 13:59 Zolpidem Tartrate (Ambien) 5 mg HS PO 11/21/20 22:00 11/27/20 18:02 DC 11/26/20 20:44 Betamethasone Dipropion Augmented (Betamethasone Dp Aug 0.05% Cream) 1 swathi PRN BID PRN TP RASH 11/21/20 22:15 Multi-Ingred Cream/Lotion/Oil/ Oint (Hydrocerin) 1 swathi PRN BID PRN TP Dry Hands 11/21/20 22:00 Guaifenesin (Robitussin Dm) 10 ml PRN Q8HRS PRN PO COUGH 11/21/20 22:00 Insulin Human Lispro (HumaLOG) 20 units TIDWMEALS SQ 11/22/20 08:00 12/19/20 12:24 Insulin Glargine (Lantus Syringe) 30 unit BID SQ 11/21/20 22:00 12/19/20 08:37 Magnesium Chloride (Mag Delay) 64 mg DAILY PO 11/22/20 09:00 12/19/20 08:31 Non-Formulary Medication (Menthol (Biofreeze)) 1 swathi QID PRN TP MUSCLE PAIN 11/21/20 21:45 UNV Pantoprazole Sodium (Protonix) 40 mg DAILY PO 11/22/20 09:00 12/19/20 08:31 Oxybutynin Chloride (Ditropan) 5 mg DAILY PO 11/22/20 09:00 12/19/20 08:31 Polyethylene Glycol (miraLAX) 17 gm DAILY PO 11/22/20 09:00 12/19/20 08:28 Potassium Chloride (Klor-Con) 10 meq DAILY PO 11/22/20 09:00 12/19/20 08:31 Propranolol HCl (Inderal) 40 mg DAILY PO 11/22/20 09:00 12/19/20 08:37 Quetiapine Fumarate (SEROquel) 600 mg HS PO 11/21/20 22:15 12/03/20 18:47 DC 12/02/20 20:08 Saliva Substitute (Biotene Moisturizing Mouth) 2 spray PRN TID PRN PO DRY MOUTH 11/21/20 22:15 Non-Formulary Medication (Semaglutide (Ozempic)) 1 mg QFR SQ 11/23/20 16:00 12/09/20 10:20 DC Pentoxifylline (TRENtal) 400 mg TIDWMEALS PO 11/22/20 08:00 12/19/20 17:14 Vitamin D (Vitamin D3) 2,000 unit DAILY PO 11/22/20 09:00 12/19/20 08:32 Lactobacillus Rhamnosus (Culturelle) 1 cap BID PO 11/22/20 09:00 12/19/20 20:25 Mirtazapine (Remeron) 7.5 mg QHS PO 11/27/20 21:00 12/11/20 17:03 DC 12/10/20 20:08 Divalproex Sodium (Depakote Er) 500 mg QHS PO 11/28/20 21:00 12/01/20 17:12 DC 11/30/20 20:45 Divalproex Sodium (Depakote Er) 1,000 mg QHS PO 12/01/20 21:00 12/19/20 20:25 Bupropion HCl (Wellbutrin Xl) 150 mg DAILY PO 12/03/20 09:00 12/09/20 16:24 DC 12/09/20 08:14 Quetiapine Fumarate (SEROquel) 200 mg TID PO 12/03/20 21:00 12/06/20 11:47 DC 12/06/20 07:48 Clonazepam (KlonoPIN) 0.5 mg TID PO 12/03/20 21:00 12/19/20 20:25 Trazodone HCl (Desyrel) 100 mg PRN QHS PRN PO INSOMNIA, MAY REPEAT X1 12/04/20 19:15 12/18/20 22:00 Risperidone (RisperDAL) 0.5 mg 0900,1300,1700 PO 12/06/20 13:00 12/07/20 17:12 DC 12/07/20 09:00 Risperidone (RisperDAL) 1.5 mg DAILY PO 12/08/20 09:00 12/07/20 19:50 DC Risperidone (RisperDAL) 1.5 mg DAILY PO 12/07/20 20:00 12/09/20 16:24 DC 12/09/20 08:16 Acetaminophen/ Hydrocodone Bitart (Lortab 5/325) 1 tab PRN TID PRN PO mod-sev PAIN 12/08/20 17:00 12/19/20 15:01 Risperidone (RisperDAL) 2 mg DAILY PO 12/10/20 09:00 12/13/20 12:47 DC 12/13/20 09:29 Mirtazapine (Remeron) 15 mg QHS PO 12/11/20 21:00 12/19/20 20:25 Risperidone (RisperDAL) 3 mg DAILY PO 12/14/20 09:00 12/19/20 08:28 Risperidone (RisperDAL CONSTA) 25 mg Q2WKS IM 12/14/20 09:00 12/14/20 09:35 Quetiapine Fumarate (SEROquel) 50 mg PRN Q2HR PRN PO ANXIETY / AGITATION 12/16/20 04:15 12/16/20 04:41 Lorazepam (Ativan) 0.5 mg PRN Q2HR PRN PO ANXIETY / AGITATION 12/16/20 04:15 12/18/20 22:41 Trazodone HCl (Desyrel) 25 mg 0900,1300,1700 PO 12/18/20 09:00 12/19/20 17:14 Temazepam (Restoril) 15 mg PRN QHS PRN PO INSOMNIA, MAY REPEAT X1 12/19/20 18:15 12/22/20 09:00 12/19/20 20:25 Current Medications Medications (Trade) Dose Ordered Sig/Leonides Route PRN Reason Start Time Stop Time Status Last Admin Dose Admin Temazepam (Restoril) 15 mg PRN QHS PRN PO INSOMNIA, MAY REPEAT X1 12/19/20 18:15 12/22/20 09:00 12/19/20 20:25 I have reviewed the current psychotropics carefully including drug interactions. Risk benefit ratio favors no change other than as noted in my dictated progress note. Diagnosis: Problems: (1) Schizoaffective disorder, bipolar type (2) Anxiety disorder, unspecified (3) Intellectual disability (4) Impulse disorder, unspecified (5) Bipolar disorder, curr episode mixed, severe, with psychotic features RAJIV [email or web address] MD Dec 19, 2020 20:55
[2020-12-20] MEDS: HYDROcodone/APAP 5/325MG 1 TAB TABLET PO PRN (03:38)
[2020-12-20 05:27] VITALS: BP 149/76
[2020-12-20] MEDS: LEVOTHYROXINE 112 MCG TABLET PO SCH (05:55)
--- NOTE | 2020-12-20 07:55 | PDOC ---
Exam Note: Donte Note: This note is a late entry for 12/19/2020 covers elements not covered in my initial note. Subjective: The patient was seen face to face in the evening of 12/19/2020 with Estela COPELAND, discussed and reviewed the chart. The patient slept 1-1/2 hours previous night despite 2 dosages of 100 mg trazodone and the rest of her psychotropics and Remeron 15 mg h.s. She has been somewhat drowsy during the day. Review of Systems: No CV, , pulmonary, eye, ENT system symptoms on review. Mental Status Exam: The patient is alert and oriented. Speech often response is monosyllabic. Abstraction is fair. Computation is impaired. Language function is intact. Attention span is short. Mood and affect somewhat withdrawn but less labile. Laboratory Data: Reviewed. Impression: Schizoaffective disorder, bipolar type, mixed with psychotic features. Anxiety disorder unspecified. Impulse control disorder unspecified. Plan: No change from initial note. The patient has failed multiple interventions for her insomnia. We will start Restoril 15 mg h.s. p.r.n., may repeat x1. Continue rest of the psychotropics unchanged. Reviewed drug interactions. Risk-benefit ratio, favors adding the benzodiazepines for a short term period for now. Assessment: Vital Signs/I&O: Vital Signs Date Time Temp Pulse Resp B/P (MAP) Pulse Ox O2 Delivery O2 Flow Rate FiO2 12/20/20 05:27 97.2 74 18 149/76 (100) 97 12/16/20 15:00 Room Air I & O 12/19/20 12/19/20 12/20/20 15:00 23:00 07:00 Intake Total 920 ml 480 ml Balance 920 ml 480 ml Labs: Laboratory Tests Test 12/19/20 12:09 12/19/20 16:51 12/19/20 19:25 12/20/20 07:44 Glucose (Fingerstick) 138 mg/dL (70-99) H 62 mg/dL (70-99) L 168 mg/dL (70-99) H 134 mg/dL (70-99) H Current Medications: Meds: Laboratory Tests Test 12/19/20 12:09 12/19/20 16:51 12/19/20 19:25 12/20/20 07:44 Glucose (Fingerstick) 138 mg/dL 62 mg/dL 168 mg/dL 134 mg/dL Current Medications Medications (Trade) Dose Ordered Sig/Leonides Route PRN Reason Start Time Stop Time Status Last Admin Dose Admin Multi-Ingredient Ointment (Analgesic [place]) 1 swathi PRN QID PRN TP MUSCLE PAIN 11/21/20 21:00 Al Hydroxide/Mg Hydroxide (Mylanta Plus Xs) 15 ml PRN AFTMEALHC PRN PO DYSPEPSIA 11/21/20 21:00 Magnesium Hydroxide (Milk Of Magnesia) 2,400 mg PRN QHS PRN PO 1ST CHOICE CONSTIPATION 11/21/20 21:00 Acetaminophen (Tylenol) 650 mg PRN Q4HRS PRN PO MILD PAIN / TEMP > 100.3'F 11/21/20 21:45 12/06/20 22:17 Amoxicillin/ Clavulanate Potassium (Augmentin 875/ 125mg) 1 tab BID PO 11/22/20 09:00 11/24/20 21:01 DC 11/24/20 20:55 Aspirin (Aspirin Enteric Coated) 81 mg DAILY PO 11/22/20 09:00 12/19/20 08:31 Bisacodyl (Dulcolax Tab) 5 mg PRN DAILY PRN PO 2ND CHOICE CONSTIPATION 11/21/20 21:45 Furosemide (Lasix) 40 mg DAILY PO 11/22/20 09:00 12/19/20 08:32 Acetaminophen/ Hydrocodone Bitart (Lortab 5/325) 1 tab PRN BID PRN PO mod-sev PAIN 11/21/20 21:45 12/08/20 17:03 DC 12/08/20 09:20 Ibuprofen (Motrin) 200 mg PRN Q6HRS PRN PO MILD PAIN / TEMP > 100.3'F 11/21/20 21:45 Cancel Albuterol/ Ipratropium (Duoneb) 3 ml PRN BID PRN NEB SHORTNESS OF BREATH 11/21/20 21:45 Levothyroxine Sodium (Synthroid) 112 mcg DAILY06 PO 11/22/20 06:00 12/20/20 05:55 Lorazepam (Ativan) 0.5 mg TID PO 11/21/20 22:00 12/03/20 18:47 DC 12/03/20 13:59 Zolpidem Tartrate (Ambien) 5 mg HS PO 11/21/20 22:00 11/27/20 18:02 DC 11/26/20 20:44 Betamethasone Dipropion Augmented (Betamethasone Dp Aug 0.05% Cream) 1 swathi PRN BID PRN TP RASH 11/21/20 22:15 Multi-Ingred Cream/Lotion/Oil/ Oint (Hydrocerin) 1 swathi PRN BID PRN TP Dry Hands 11/21/20 22:00 Guaifenesin (Robitussin Dm) 10 ml PRN Q8HRS PRN PO COUGH 11/21/20 22:00 Insulin Human Lispro (HumaLOG) 20 units TIDWMEALS SQ 11/22/20 08:00 12/19/20 12:24 Insulin Glargine (Lantus Syringe) 30 unit BID SQ 11/21/20 22:00 12/19/20 21:06 Magnesium Chloride (Mag Delay) 64 mg DAILY PO 11/22/20 09:00 12/19/20 08:31 Non-Formulary Medication (Menthol (Biofreeze)) 1 swathi QID PRN TP MUSCLE PAIN 11/21/20 21:45 UNV Pantoprazole Sodium (Protonix) 40 mg DAILY PO 11/22/20 09:00 12/19/20 08:31 Oxybutynin Chloride (Ditropan) 5 mg DAILY PO 11/22/20 09:00 12/19/20 08:31 Polyethylene Glycol (miraLAX) 17 gm DAILY PO 11/22/20 09:00 12/19/20 08:28 Potassium Chloride (Klor-Con) 10 meq DAILY PO 11/22/20 09:00 12/19/20 08:31 Propranolol HCl (Inderal) 40 mg DAILY PO 11/22/20 09:00 12/19/20 08:37 Quetiapine Fumarate (SEROquel) 600 mg HS PO 11/21/20 22:15 12/03/20 18:47 DC 12/02/20 20:08 Saliva Substitute (Biotene Moisturizing Mouth) 2 spray PRN TID PRN PO DRY MOUTH 11/21/20 22:15 Non-Formulary Medication (Semaglutide (Ozempic)) 1 mg QFR SQ 11/23/20 16:00 12/09/20 10:20 DC Pentoxifylline (TRENtal) 400 mg TIDWMEALS PO 11/22/20 08:00 12/19/20 17:14 Vitamin D (Vitamin D3) 2,000 unit DAILY PO 11/22/20 09:00 12/19/20 08:32 Lactobacillus Rhamnosus (Culturelle) 1 cap BID PO 11/22/20 09:00 12/19/20 20:25 Mirtazapine (Remeron) 7.5 mg QHS PO 11/27/20 21:00 12/11/20 17:03 DC 12/10/20 20:08 Divalproex Sodium (Depakote Er) 500 mg QHS PO 11/28/20 21:00 12/01/20 17:12 DC 11/30/20 20:45 Divalproex Sodium (Depakote Er) 1,000 mg QHS PO 12/01/20 21:00 12/19/20 20:25 Bupropion HCl (Wellbutrin Xl) 150 mg DAILY PO 12/03/20 09:00 12/09/20 16:24 DC 12/09/20 08:14 Quetiapine Fumarate (SEROquel) 200 mg TID PO 12/03/20 21:00 12/06/20 11:47 DC 12/06/20 07:48 Clonazepam (KlonoPIN) 0.5 mg TID PO 12/03/20 21:00 12/19/20 20:25 Trazodone HCl (Desyrel) 100 mg PRN QHS PRN PO INSOMNIA, MAY REPEAT X1 12/04/20 19:15 12/18/20 22:00 Risperidone (RisperDAL) 0.5 mg 0900,1300,1700 PO 12/06/20 13:00 12/07/20 17:12 DC 12/07/20 09:00 Risperidone (RisperDAL) 1.5 mg DAILY PO 12/08/20 09:00 12/07/20 19:50 DC Risperidone (RisperDAL) 1.5 mg DAILY PO 12/07/20 20:00 12/09/20 16:24 DC 12/09/20 08:16 Acetaminophen/ Hydrocodone Bitart (Lortab 5/325) 1 tab PRN TID PRN PO mod-sev PAIN 12/08/20 17:00 12/20/20 03:38 Risperidone (RisperDAL) 2 mg DAILY PO 12/10/20 09:00 12/13/20 12:47 DC 12/13/20 09:29 Mirtazapine (Remeron) 15 mg QHS PO 12/11/20 21:00 12/19/20 20:25 Risperidone (RisperDAL) 3 mg DAILY PO 12/14/20 09:00 12/19/20 08:28 Risperidone (RisperDAL CONSTA) 25 mg Q2WKS IM 12/14/20 09:00 12/14/20 09:35 Quetiapine Fumarate (SEROquel) 50 mg PRN Q2HR PRN PO ANXIETY / AGITATION 12/16/20 04:15 12/16/20 04:41 Lorazepam (Ativan) 0.5 mg PRN Q2HR PRN PO ANXIETY / AGITATION 12/16/20 04:15 12/18/20 22:41 Trazodone HCl (Desyrel) 25 mg 0900,1300,1700 PO 12/18/20 09:00 12/19/20 17:14 Temazepam (Restoril) 15 mg PRN QHS PRN PO INSOMNIA, MAY REPEAT X1 12/19/20 18:15 12/22/20 09:00 12/19/20 20:25 Current Medications Medications (Trade) Dose Ordered Sig/Leonides Route PRN Reason Start Time Stop Time Status Last Admin Dose Admin Temazepam (Restoril) 15 mg PRN QHS PRN PO INSOMNIA, MAY REPEAT X1 12/19/20 18:15 12/22/20 09:00 12/19/20 20:25 I have reviewed the current psychotropics carefully including drug interactions. Risk benefit ratio favors no change other than as noted in my dictated progress note. Diagnosis: Problems: (1) Mild cognitive impairment (2) Schizoaffective disorder, bipolar type (3) Anxiety disorder, unspecified (4) Intellectual disability (5) Impulse disorder, unspecified (6) Bipolar disorder, curr episode mixed, severe, with psychotic features RAJIV VELAZQUEZ MD Dec 20, 2020 07:55
[2020-12-20] MEDS: OXYBUTYNIN CHLORIDE 5 MG TABLET PO SCH (08:34)
[2020-12-20] MEDS: POTASSIUM CHLORIDE 10 MEQ TABLET.ER. PO SCH (08:34)
[2020-12-20] MEDS: MAGNESIUM CHLORIDE ER 64 MG TABLET.ER PO SCH (08:34)
[2020-12-20] MEDS: FUROSEMIDE 40 MG TABLET PO SCH (08:34)
[2020-12-20] MEDS: LACTOBACILLUS RHAMNOSUS GG 1 CAPSULE. PO SCH ×2 (08:34→20:28)
[2020-12-20] MEDS: PANTOPRAZOLE 40 MG TABLET. PO SCH (08:34)
[2020-12-20] MEDS: CHOLECALCIFEROL (VITAMIN D3) 1,000 UNIT TABLET PO SCH (08:35)
[2020-12-20] MEDS: traZODone 50 MG TABLET. PO SCH ×4 (08:35→17:45)
[2020-12-20] MEDS: INSULIN GLARGINE SYRINGE. SQ SCH ×2 (08:36→21:26)
[2020-12-20] MEDS: risperiDONE ORAL 1 MG/ML 30ml BOTTLE. PO SCH (08:37)
[2020-12-20] MEDS: PENTOXIFYLLINE ER 400 MG TABLET.ER. PO SCH ×4 (08:37→17:45)
[2020-12-20] MEDS: ASPIRIN ENTERIC COATED 81 MG TABLET.DR. PO SCH (08:37)
[2020-12-20] MEDS: INSULIN LISPRO 300 UNITS/3 ML VIAL. SQ SCH ×3 (08:37→17:44)
[2020-12-20] MEDS: POLYETHYLENE GLYCOL 3350 17 GM PACKET. PO SCH (08:38)
[2020-12-20] MEDS: PROPRANOLOL 20 MG TABLET. PO SCH (08:39)
[2020-12-20] MEDS: clonazePAM 0.5 MG TABLET PO SCH ×3 (08:39→20:30)
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
[2020-12-20 15:19] VITALS: BP 117/74
[2020-12-20] MEDS: MIRTAZAPINE 15 MG TABLET PO SCH (20:27)
[2020-12-20] MEDS: DIVALPROEX ER 500 MG TAB.ER.24H PO SCH (20:28)
[2020-12-20] MEDS: traZODone 100 MG TABLET. PO PRN (20:30)
--- NOTE | 2020-12-20 20:58 | PDOC ---
Exam Note: Donte Note: Please also refer to the separate dictated note~for this date of service dictated separately.~Patient seen individually. Discussed the patient with Nursing staff reviewed the chart.~Reviewed interim history and current functioning. Reviewed vital signs,~Labs/ Radiology~and current medications noted below. Continue current treatment with the changes noted in the dictated addendum note Assessment: Vital Signs/I&O: Vital Signs Date Time Temp Pulse Resp B/P (MAP) Pulse Ox O2 Delivery O2 Flow Rate FiO2 12/20/20 15:19 97.5 67 20 117/74 (88) 98 Room Air I & O 12/19/20 12/19/20 12/20/20 15:00 23:00 07:00 Intake Total 920 ml 480 ml Balance 920 ml 480 ml Labs: Laboratory Tests Test 12/20/20 07:44 12/20/20 11:45 12/20/20 16:36 12/20/20 19:12 Glucose (Fingerstick) 134 mg/dL (70-99) H 184 mg/dL (70-99) H 146 mg/dL (70-99) H 206 mg/dL (70-99) H Current Medications: Meds: Laboratory Tests Test 12/20/20 07:44 12/20/20 11:45 12/20/20 16:36 12/20/20 19:12 Glucose (Fingerstick) 134 mg/dL 184 mg/dL 146 mg/dL 206 mg/dL Current Medications Medications (Trade) Dose Ordered Sig/Leonides Route PRN Reason Start Time Stop Time Status Last Admin Dose Admin Multi-Ingredient Ointment (Analgesic [place]) 1 swathi PRN QID PRN TP MUSCLE PAIN 11/21/20 21:00 Al Hydroxide/Mg Hydroxide (Mylanta Plus Xs) 15 ml PRN AFTMEALHC PRN PO DYSPEPSIA 11/21/20 21:00 Magnesium Hydroxide (Milk Of Magnesia) 2,400 mg PRN QHS PRN PO 1ST CHOICE CONSTIPATION 11/21/20 21:00 Acetaminophen (Tylenol) 650 mg PRN Q4HRS PRN PO MILD PAIN / TEMP > 100.3'F 11/21/20 21:45 12/06/20 22:17 Amoxicillin/ Clavulanate Potassium (Augmentin 875/ 125mg) 1 tab BID PO 11/22/20 09:00 11/24/20 21:01 DC 11/24/20 20:55 Aspirin (Aspirin Enteric Coated) 81 mg DAILY PO 11/22/20 09:00 12/20/20 08:37 Bisacodyl (Dulcolax Tab) 5 mg PRN DAILY PRN PO 2ND CHOICE CONSTIPATION 11/21/20 21:45 Furosemide (Lasix) 40 mg DAILY PO 11/22/20 09:00 12/20/20 08:34 Acetaminophen/ Hydrocodone Bitart (Lortab 5/325) 1 tab PRN BID PRN PO mod-sev PAIN 11/21/20 21:45 12/08/20 17:03 DC 12/08/20 09:20 Ibuprofen (Motrin) 200 mg PRN Q6HRS PRN PO MILD PAIN / TEMP > 100.3'F 11/21/20 21:45 Cancel Albuterol/ Ipratropium (Duoneb) 3 ml PRN BID PRN NEB SHORTNESS OF BREATH 11/21/20 21:45 Levothyroxine Sodium (Synthroid) 112 mcg DAILY06 PO 11/22/20 06:00 12/20/20 05:55 Lorazepam (Ativan) 0.5 mg TID PO 11/21/20 22:00 12/03/20 18:47 DC 12/03/20 13:59 Zolpidem Tartrate (Ambien) 5 mg HS PO 11/21/20 22:00 11/27/20 18:02 DC 11/26/20 20:44 Betamethasone Dipropion Augmented (Betamethasone Dp Aug 0.05% Cream) 1 swathi PRN BID PRN TP RASH 11/21/20 22:15 Multi-Ingred Cream/Lotion/Oil/ Oint (Hydrocerin) 1 swathi PRN BID PRN TP Dry Hands 11/21/20 22:00 Guaifenesin (Robitussin Dm) 10 ml PRN Q8HRS PRN PO COUGH 11/21/20 22:00 Insulin Human Lispro (HumaLOG) 20 units TIDWMEALS SQ 11/22/20 08:00 12/20/20 17:44 Insulin Glargine (Lantus Syringe) 30 unit BID SQ 11/21/20 22:00 12/20/20 08:36 Magnesium Chloride (Mag Delay) 64 mg DAILY PO 11/22/20 09:00 12/20/20 08:34 Non-Formulary Medication (Menthol (Biofreeze)) 1 swathi QID PRN TP MUSCLE PAIN 11/21/20 21:45 UNV Pantoprazole Sodium (Protonix) 40 mg DAILY PO 11/22/20 09:00 12/20/20 08:34 Oxybutynin Chloride (Ditropan) 5 mg DAILY PO 11/22/20 09:00 12/20/20 08:34 Polyethylene Glycol (miraLAX) 17 gm DAILY PO 11/22/20 09:00 12/20/20 08:38 Potassium Chloride (Klor-Con) 10 meq DAILY PO 11/22/20 09:00 12/20/20 08:34 Propranolol HCl (Inderal) 40 mg DAILY PO 11/22/20 09:00 12/20/20 08:39 Quetiapine Fumarate (SEROquel) 600 mg HS PO 11/21/20 22:15 12/03/20 18:47 DC 12/02/20 20:08 Saliva Substitute (Biotene Moisturizing Mouth) 2 spray PRN TID PRN PO DRY MOUTH 11/21/20 22:15 Non-Formulary Medication (Semaglutide (Ozempic)) 1 mg QFR SQ 11/23/20 16:00 12/09/20 10:20 DC Pentoxifylline (TRENtal) 400 mg TIDWMEALS PO 11/22/20 08:00 12/20/20 12:15 Vitamin D (Vitamin D3) 2,000 unit DAILY PO 11/22/20 09:00 12/20/20 08:35 Lactobacillus Rhamnosus (Culturelle) 1 cap BID PO 11/22/20 09:00 12/20/20 20:28 Mirtazapine (Remeron) 7.5 mg QHS PO 11/27/20 21:00 12/11/20 17:03 DC 12/10/20 20:08 Divalproex Sodium (Depakote Er) 500 mg QHS PO 11/28/20 21:00 12/01/20 17:12 DC 11/30/20 20:45 Divalproex Sodium (Depakote Er) 1,000 mg QHS PO 12/01/20 21:00 12/20/20 20:28 Bupropion HCl (Wellbutrin Xl) 150 mg DAILY PO 12/03/20 09:00 12/09/20 16:24 DC 12/09/20 08:14 Quetiapine Fumarate (SEROquel) 200 mg TID PO 12/03/20 21:00 12/06/20 11:47 DC 12/06/20 07:48 Clonazepam (KlonoPIN) 0.5 mg TID PO 12/03/20 21:00 12/20/20 20:30 Trazodone HCl (Desyrel) 100 mg PRN QHS PRN PO INSOMNIA, MAY REPEAT X1 12/04/20 19:15 12/20/20 20:30 Risperidone (RisperDAL) 0.5 mg 0900,1300,1700 PO 12/06/20 13:00 12/07/20 17:12 DC 12/07/20 09:00 Risperidone (RisperDAL) 1.5 mg DAILY PO 12/08/20 09:00 12/07/20 19:50 DC Risperidone (RisperDAL) 1.5 mg DAILY PO 12/07/20 20:00 12/09/20 16:24 DC 12/09/20 08:16 Acetaminophen/ Hydrocodone Bitart (Lortab 5/325) 1 tab PRN TID PRN PO mod-sev PAIN 12/08/20 17:00 12/20/20 03:38 Risperidone (RisperDAL) 2 mg DAILY PO 12/10/20 09:00 12/13/20 12:47 DC 12/13/20 09:29 Mirtazapine (Remeron) 15 mg QHS PO 12/11/20 21:00 12/20/20 20:27 Risperidone (RisperDAL) 3 mg DAILY PO 12/14/20 09:00 12/20/20 08:37 Risperidone (RisperDAL CONSTA) 25 mg Q2WKS IM 12/14/20 09:00 12/14/20 09:35 Quetiapine Fumarate (SEROquel) 50 mg PRN Q2HR PRN PO ANXIETY / AGITATION 12/16/20 04:15 12/16/20 04:41 Lorazepam (Ativan) 0.5 mg PRN Q2HR PRN PO ANXIETY / AGITATION 12/16/20 04:15 12/18/20 22:41 Trazodone HCl (Desyrel) 25 mg 0900,1300,1700 PO 12/18/20 09:00 12/20/20 13:57 Temazepam (Restoril) 15 mg PRN QHS PRN PO INSOMNIA, MAY REPEAT X1 12/19/20 18:15 12/22/20 09:00 12/19/20 20:25 I have reviewed the current psychotropics carefully including drug interactions. Risk benefit ratio favors no change other than as noted in my dictated progress note. Diagnosis: Problems: (1) Mild cognitive impairment (2) Schizoaffective disorder, bipolar type (3) Anxiety disorder, unspecified (4) Intellectual disability (5) Impulse disorder, unspecified (6) Bipolar disorder, curr episode mixed, severe, with psychotic features RAJIV VELAZQUEZ MD Dec 20, 2020 20:58
[2020-12-20] MEDS: TEMAZEPAM 15 MG CAPSULE PO PRN (22:32)
[2020-12-21] MEDS: LEVOTHYROXINE 112 MCG TABLET PO SCH (05:33)
[2020-12-21 05:42] VITALS: BP 137/86
[2020-12-21 06:29] LABS: BASO # 0.1 x10^3/uL (0.0-0.2); BASO % 1 % (0-3); EOS # 0.2 x10^3/uL (0.0-0.7); EOS % 3 % (0-3); HEMATOCRIT 37.4 % (36.0-47.0); HEMOGLOBIN 12.5 g/dL (12.0-15.5); LYMPH # 2.9 x10^3/uL (1.0-4.8); LYMPH % 43 % (24-48); MEAN CORPUSCULAR HEMOGLOBIN 28 pg (25-35); MEAN CORPUSCULAR HGB CONC 33 g/dL (31-37); MEAN CORPUSCULAR VOLUME 85 fL (79-100); MONO # 0.8 x10^3/uL (0.0-1.1); MONO % 13 % (0-9); NEUT # 2.7 x10^3uL (1.8-7.7); NEUT % 41 % (31-73); PLATELET COUNT 218 x10^3/uL (140-400); RED CELL DISTRIBUTION WIDTH 12.9 % (11.5-14.5); WHITE BLOOD COUNT 6.7 x10^3/uL (4.0-11.0)
[2020-12-21 06:49] LABS: ALBUMIN 2.8 g/dL (3.4-5.0); ALBUMIN/GLOBULIN RATIO 0.8 (1.0-1.7); ALK PHOS 110 U/L (46-116); ALT (SGPT) 24 U/L (14-59); ANION GAP 9 (6-14); AST (SGOT) 15 U/L (15-37); BLOOD UREA NITROGEN 13 mg/dL (7-20); BUN/CREATININE RATIO 16 (6-20); CALCIUM 8.5 mg/dL (8.5-10.1); CARBON DIOXIDE 27 mmol/L (21-32); CHLORIDE 105 mmol/L (98-107); CREATININE 0.8 mg/dL (0.6-1.0); GLUCOSE 142 mg/dL (70-99); POTASSIUM 3.7 mmol/L (3.5-5.1); SODIUM 141 mmol/L (136-145); TOTAL BILIRUBIN 0.2 mg/dL (0.2-1.0); TOTAL PROTEIN 6.5 g/dL (6.4-8.2)
[2020-12-21 07:01] LABS: VAL ACID 49 mcg/mL (50-100)
[2020-12-21 07:58] LABS: % BANDS 2 % (0-9); % EOS 3 % (0-5); % LYMPHS 45 % (24-48); % METAS 2 % (0-0); % MONOS 11 % (0-10); % SEGS 37 % (35-66); PLT ESTIMATE ADEQUATE (ADEQUATE)
[2020-12-21] MEDS: PENTOXIFYLLINE ER 400 MG TABLET.ER. PO SCH ×3 (08:00→17:00)
[2020-12-21] MEDS: INSULIN LISPRO 300 UNITS/3 ML VIAL. SQ SCH ×3 (08:00→17:00)
[2020-12-21] MEDS: LACTOBACILLUS RHAMNOSUS GG 1 CAPSULE. PO SCH ×2 (08:46→21:00)
[2020-12-21] MEDS: ASPIRIN ENTERIC COATED 81 MG TABLET.DR. PO SCH (08:46)
[2020-12-21] MEDS: CHOLECALCIFEROL (VITAMIN D3) 1,000 UNIT TABLET PO SCH (08:46)
[2020-12-21] MEDS: OXYBUTYNIN CHLORIDE 5 MG TABLET PO SCH (08:47)
[2020-12-21] MEDS: POTASSIUM CHLORIDE 10 MEQ TABLET.ER. PO SCH (08:47)
[2020-12-21] MEDS: FUROSEMIDE 40 MG TABLET PO SCH (08:47)
[2020-12-21] MEDS: traZODone 50 MG TABLET. PO SCH ×3 (08:47→17:00)
[2020-12-21] MEDS: INSULIN GLARGINE SYRINGE. SQ SCH ×2 (08:48→21:23)
[2020-12-21] MEDS: MAGNESIUM CHLORIDE ER 64 MG TABLET.ER PO SCH (08:48)
[2020-12-21] MEDS: POLYETHYLENE GLYCOL 3350 17 GM PACKET. PO SCH (08:48)
[2020-12-21] MEDS: PANTOPRAZOLE 40 MG TABLET. PO SCH (08:48)
[2020-12-21] MEDS: risperiDONE ORAL 1 MG/ML 30ml BOTTLE. PO SCH (08:48)
[2020-12-21] MEDS: PROPRANOLOL 20 MG TABLET. PO SCH (08:48)
[2020-12-21] MEDS: clonazePAM 0.5 MG TABLET PO SCH ×3 (09:00→19:59)
[2020-12-21 16:12] VITALS: BP 137/85
[2020-12-21] MEDS: TEMAZEPAM 15 MG CAPSULE PO PRN (19:59)
[2020-12-21] MEDS: MIRTAZAPINE 15 MG TABLET PO SCH (19:59)
[2020-12-21] MEDS: DIVALPROEX 125 MG CAP.SPRINK PO SCH (21:24)
[2020-12-22] MEDS: LEVOTHYROXINE 112 MCG TABLET PO SCH (05:25)
[2020-12-22 05:56] VITALS: BP 153/80
[2020-12-22 08:08] LABS: VAL ACID 57 mcg/mL (50-100)
[2020-12-22] MEDS: PENTOXIFYLLINE ER 400 MG TABLET.ER. PO SCH ×3 (08:27→17:21)
[2020-12-22] MEDS: INSULIN LISPRO 300 UNITS/3 ML VIAL. SQ SCH ×3 (08:28→17:23)
[2020-12-22] MEDS: ASPIRIN ENTERIC COATED 81 MG TABLET.DR. PO SCH (08:28)
[2020-12-22] MEDS: LACTOBACILLUS RHAMNOSUS GG 1 CAPSULE. PO SCH ×2 (08:28→19:58)
[2020-12-22] MEDS: OXYBUTYNIN CHLORIDE 5 MG TABLET PO SCH (08:29)
[2020-12-22] MEDS: traZODone 50 MG TABLET. PO SCH ×3 (08:29→17:21)
[2020-12-22] MEDS: DIVALPROEX 125 MG CAP.SPRINK PO SCH ×2 (08:29→19:58)
[2020-12-22] MEDS: FUROSEMIDE 40 MG TABLET PO SCH (08:30)
[2020-12-22] MEDS: MAGNESIUM CHLORIDE ER 64 MG TABLET.ER PO SCH (08:30)
[2020-12-22] MEDS: PROPRANOLOL 20 MG TABLET. PO SCH (08:30)
[2020-12-22] MEDS: risperiDONE ORAL 1 MG/ML 30ml BOTTLE. PO SCH (08:31)
[2020-12-22] MEDS: PANTOPRAZOLE 40 MG TABLET. PO SCH (08:31)
[2020-12-22] MEDS: CHOLECALCIFEROL (VITAMIN D3) 1,000 UNIT TABLET PO SCH (08:31)
[2020-12-22] MEDS: POTASSIUM CHLORIDE 10 MEQ TABLET.ER. PO SCH (08:31)
[2020-12-22] MEDS: clonazePAM 0.5 MG TABLET PO SCH ×3 (08:39→19:59)
[2020-12-22] MEDS: INSULIN GLARGINE SYRINGE. SQ SCH ×2 (08:40→20:58)
[2020-12-22] MEDS: POLYETHYLENE GLYCOL 3350 17 GM PACKET. PO SCH (09:00)
[2020-12-22 15:53] VITALS: BP 113/74
[2020-12-22] MEDS: MIRTAZAPINE 15 MG TABLET PO SCH (19:58)
[2020-12-22] MEDS: traZODone 100 MG TABLET. PO PRN (19:58)
--- NOTE | 2020-12-22 21:31 | PDOC ---
Exam Note: Donte Note: Late entry for 12/21/2020. Please also refer to the separate dictated note~for this date of service dictated separately.~Patient seen individually. Discussed the patient with Nursing staff reviewed the chart.~Reviewed interim history and current functioning. Reviewed vital signs,~Labs/ Radiology~and current medic ations noted below. Continue current treatment with the changes noted in the dictated addendum note Assessment: Vital Signs/I&O: Vital Signs Date Time Temp Pulse Resp B/P (MAP) Pulse Ox O2 Delivery O2 Flow Rate FiO2 12/22/20 15:53 97.8 73 18 113/74 (87) 98 12/22/20 05:56 Room Air I & O 0 12/21/20 12/21/20 12/22/20 15:00 23:00 07:00 Intake Total 840 ml 480 ml Balance 840 ml 480 ml Labs: Laboratory Tests Test 12/22/20 07:02 12/22/20 08:00 12/22/20 12:06 12/22/20 16:58 Valproic Acid Level 57 mcg/mL (50-100) Valproic Acid Last Dose Date 12/21/2020 Valproic Acid Last Dose Time 2100 Glucose (Fingerstick) 166 mg/dL (70-99) H 241 mg/dL (70-99) H 229 mg/dL (70-99) H Test 12/22/20 19:18 Glucose (Fingerstick) 236 mg/dL (70-99) H Current Medications: I have reviewed the current psychotropics carefully including drug interactions. Risk benefit ratio favors no change other than as noted in my dictated progress note. Diagnosis: Problems: (1) Mild cognitive impairment (2) Schizoaffective disorder, bipolar type (3) Anxiety disorder, unspecified (4) Impulse disorder, unspecified (5) Bipolar disorder, curr episode mixed, severe, with psychotic features RAJIV VELAZQUEZ MD Dec 22, 2020 21:31
--- NOTE | 2020-12-22 21:33 | PDOC ---
Exam Note: Donte Note: Please also refer to the separate dictated note~for this date of service dictated separately.~Patient seen individually. Discussed the patient with Nursing staff reviewed the chart.~Reviewed interim history and current functioning. Reviewed vital signs,~Labs/ Radiology~and current medications noted below. Continue current treatment with the changes noted in the dictated addendum note Assessment: Vital Signs/I&O: Vital Signs Date Time Temp Pulse Resp B/P (MAP) Pulse Ox O2 Delivery O2 Flow Rate FiO2 12/22/20 15:53 97.8 73 18 113/74 (87) 98 12/22/20 05:56 Room Air I & O 12/21/20 12/21/20 12/22/20 15:00 23:00 07:00 Intake Total 840 ml 480 ml Balance 840 ml 480 ml Labs: Laboratory Tests Test 12/22/20 07:02 12/22/20 08:00 12/22/20 12:06 12/22/20 16:58 Valproic Acid Level 57 mcg/mL (50-100) Valproic Acid Last Dose Date 12/21/2020 Valproic Acid Last Dose Time 2100 Glucose (Fingerstick) 166 mg/dL (70-99) H 241 mg/dL (70-99) H 229 mg/dL (70-99) H Test 12/22/20 19:18 Glucose (Fingerstick) 236 mg/dL (70-99) H Current Medications: I have reviewed the current psychotropics carefully including drug interactions. Risk benefit ratio favors no change other than as noted in my dictated progress note. Diagnosis: Problems: (1) Mild cognitive impairment (2) Schizoaffective disorder, bipolar type (3) Anxiety disorder, unspecified (4) Impulse disorder, unspecified (5) Bipolar disorder, curr episode mixed, severe, with psychotic features RAJIV VELAZQUEZ MD Dec 22, 2020 21:33
[2020-12-23 06:33] VITALS: BP 133/77
[2020-12-23] MEDS: PENTOXIFYLLINE ER 400 MG TABLET.ER. PO SCH ×4 (08:24→17:00)
[2020-12-23] MEDS: LEVOTHYROXINE 112 MCG TABLET PO SCH (08:24)
[2020-12-23] MEDS: INSULIN LISPRO 300 UNITS/3 ML VIAL. SQ SCH ×3 (08:28→17:20)
[2020-12-23] MEDS: LACTOBACILLUS RHAMNOSUS GG 1 CAPSULE. PO SCH ×2 (08:29→20:40)
[2020-12-23] MEDS: ASPIRIN ENTERIC COATED 81 MG TABLET.DR. PO SCH (08:29)
[2020-12-23] MEDS: DIVALPROEX 125 MG CAP.SPRINK PO SCH ×2 (08:29→20:42)
[2020-12-23] MEDS: FUROSEMIDE 40 MG TABLET PO SCH (08:30)
[2020-12-23] MEDS: PANTOPRAZOLE 40 MG TABLET. PO SCH (08:30)
[2020-12-23] MEDS: traZODone 50 MG TABLET. PO SCH ×3 (08:30→17:16)
[2020-12-23] MEDS: MAGNESIUM CHLORIDE ER 64 MG TABLET.ER PO SCH (08:30)
[2020-12-23] MEDS: OXYBUTYNIN CHLORIDE 5 MG TABLET PO SCH (08:30)
[2020-12-23] MEDS: CHOLECALCIFEROL (VITAMIN D3) 1,000 UNIT TABLET PO SCH (08:31)
[2020-12-23] MEDS: INSULIN GLARGINE SYRINGE. SQ SCH ×2 (08:31→20:39)
[2020-12-23] MEDS: POTASSIUM CHLORIDE 10 MEQ TABLET.ER. PO SCH (08:32)
[2020-12-23] MEDS: clonazePAM 0.5 MG TABLET PO SCH ×3 (08:36→20:41)
[2020-12-23] MEDS: risperiDONE 1 MG TABLET. PO SCH (08:36)
[2020-12-23] MEDS: PROPRANOLOL 20 MG TABLET. PO SCH (08:37)
[2020-12-23] MEDS: POLYETHYLENE GLYCOL 3350 17 GM PACKET. PO SCH (08:48)
[2020-12-23 16:24] VITALS: BP 122/80
[2020-12-23] MEDS: LORazepam 0.5 MG TABLET PO PRN (17:16)
[2020-12-23] MEDS: MIRTAZAPINE 15 MG TABLET PO SCH (20:41)
[2020-12-23] MEDS: traZODone 100 MG TABLET. PO PRN (20:41)
[2020-12-23] MEDS: HYDROcodone/APAP 5/325MG 1 TAB TABLET PO PRN (20:42)
--- NOTE | 2020-12-23 21:01 | PDOC ---
Exam Note: Donte Note: Please also refer to the separate dictated note~for this date of service dictated separately.~Patient seen individually. Discussed the patient with Nursing staff reviewed the chart.~Reviewed interim history and current functioning. Reviewed vital signs,~Labs/ Radiology~and current medications noted below. Continue current treatment with the changes noted in the dictated addendum note Assessment: Vital Signs/I&O: Vital Signs Date Time Temp Pulse Resp B/P (MAP) Pulse Ox O2 Delivery O2 Flow Rate FiO2 12/23/20 20:42 96 12/23/20 16:24 98.3 71 20 122/80 (94) 12/22/20 05:56 Room Air I & O 12/22/20 12/22/20 12/23/20 15:00 23:00 07:00 Intake Total 600 ml 480 ml Balance 600 ml 480 ml Labs: Laboratory Tests Test 12/23/20 07:31 12/23/20 12:03 12/23/20 19:38 Glucose (Fingerstick) 155 mg/dL (70-99) H 261 mg/dL (70-99) H 202 mg/dL (70-99) H Current Medications: Meds: Current Medications Medications (Trade) Dose Ordered Sig/Leonides Route PRN Reason Start Time Stop Time Status Last Admin Dose Admin Risperidone (RisperDAL) 3 mg DAILY PO 12/23/20 09:00 12/23/20 08:36 Trazodone HCl (Desyrel) 50 mg 1300,1700 PO 12/23/20 17:00 12/23/20 17:16 I have reviewed the current psychotropics carefully including drug interactions. Risk benefit ratio favors no change other than as noted in my dictated progress note. Diagnosis: Problems: (1) Mild cognitive impairment (2) Schizoaffective disorder, bipolar type (3) Anxiety disorder, unspecified (4) Impulse disorder, unspecified (5) Bipolar disorder, curr episode mixed, severe, with psychotic features RAJIV VELAZQUEZ MD Dec 23, 2020 21:01
[2020-12-24] MEDS: LEVOTHYROXINE 112 MCG TABLET PO SCH (05:15)
[2020-12-24 06:37] VITALS: BP 141/84
--- NOTE | 2020-12-24 06:56 | PDOC ---
Exam Note: Donte Note: This note is a late entry for 12/20/2020 covers elements not covered in my initial note. Subjective: The patient was seen face to face in the morning of 12/20/2020 for a treatment team meeting with Reyna Mccoy, Cande Serrato and Marixa (social services coordinator), Yvonne Chen, activity therapy and Iftikhar COPELAND, discussed and reviewed the patients history at length. The patient slept 4-1/2 hours previous. Sleeping average is 3-1/2 hours. She has been intermittently resistive to taking her medications. She has been labile in her mood, making vulgar statements at times, fairly bizarre behavior per nursing report. Her last valproic acid level was 78 on 12/04. We will check it again given her non- compliance with treatment. I met with her in her room in the evening. She still seems to be struggling with internal stimuli. Review of Systems: No CV, , pulmonary, eye, ENT system symptoms on review. Mental Status Exam: The patient is alert and oriented. Speech verbal response is monosyllabic, low in rate and rhythm, low in volume. Abstraction is fair. Computation is impaired. Language function is intact. Attention span is fair. Mood and affect labile. She obsesses before she answers a question in a very controlled low tone. As I was leaving the room she was making vulgar derogatory statements towards me, entirely for no reason. She has a rather disconcerting stare but denies hallucinations on direct questioning. Laboratory Data: Reviewed. Impression: Schizoaffective disorder, bipolar type, mixed with psychotic features. Anxiety disorder unspecified. Impulse control disorder unspecified. Plan: No change from initial note. Check valproic acid level. We may need to increase Risperdal oral but in the interim she has been started on Risperdal Consta. Maintain rest of the psychotropics unchanged. Assessment: Vital Signs/I&O: Vital Signs Date Time Temp Pulse Resp B/P (MAP) Pulse Ox O2 Delivery O2 Flow Rate FiO2 12/24/20 06:37 97.2 79 16 141/84 (103) 96 Room Air I & O 12/23/20 12/23/20 12/24/20 15:00 23:00 07:00 Intake Total 720 ml 660 ml 480 ml Balance 720 ml 660 ml 480 ml Labs: Laboratory Tests Test 12/23/20 07:31 12/23/20 12:03 12/23/20 19:38 Glucose (Fingerstick) 155 mg/dL (70-99) H 261 mg/dL (70-99) H 202 mg/dL (70-99) H Current Medications: Meds: Laboratory Tests Test 12/23/20 07:31 12/23/20 12:03 12/23/20 19:38 Glucose (Fingerstick) 155 mg/dL 261 mg/dL 202 mg/dL Current Medications Medications (Trade) Dose Ordered Sig/Leonides Route PRN Reason Start Time Stop Time Status Last Admin Dose Admin Multi-Ingredient Ointment (Analgesic [place]) 1 swathi PRN QID PRN TP MUSCLE PAIN 11/21/20 21:00 Al Hydroxide/Mg Hydroxide (Mylanta Plus Xs) 15 ml PRN AFTMEALHC PRN PO DYSPEPSIA 11/21/20 21:00 Magnesium Hydroxide (Milk Of Magnesia) 2,400 mg PRN QHS PRN PO 1ST CHOICE CONSTIPATION 11/21/20 21:00 Acetaminophen (Tylenol) 650 mg PRN Q4HRS PRN PO MILD PAIN / TEMP > 100.3'F 11/21/20 21:45 12/06/20 22:17 Amoxicillin/ Clavulanate Potassium (Augmentin 875/ 125mg) 1 tab BID PO 11/22/20 09:00 11/24/20 21:01 DC 11/24/20 20:55 Aspirin (Aspirin Enteric Coated) 81 mg DAILY PO 11/22/20 09:00 12/23/20 08:29 Bisacodyl (Dulcolax Tab) 5 mg PRN DAILY PRN PO 2ND CHOICE CONSTIPATION 11/21/20 21:45 Furosemide (Lasix) 40 mg DAILY PO 11/22/20 09:00 12/23/20 08:30 Acetaminophen/ Hydrocodone Bitart (Lortab 5/325) 1 tab PRN BID PRN PO mod-sev PAIN 11/21/20 21:45 12/08/20 17:03 DC 12/08/20 09:20 Ibuprofen (Motrin) 200 mg PRN Q6HRS PRN PO MILD PAIN / TEMP > 100.3'F 11/21/20 21:45 Cancel Albuterol/ Ipratropium (Duoneb) 3 ml PRN BID PRN NEB SHORTNESS OF BREATH 11/21/20 21:45 Levothyroxine Sodium (Synthroid) 112 mcg DAILY06 PO 11/22/20 06:00 12/24/20 05:15 Lorazepam (Ativan) 0.5 mg TID PO 11/21/20 22:00 12/03/20 18:47 DC 12/03/20 13:59 Zolpidem Tartrate (Ambien) 5 mg HS PO 11/21/20 22:00 11/27/20 18:02 DC 11/26/20 20:44 Betamethasone Dipropion Augmented (Betamethasone Dp Aug 0.05% Cream) 1 swathi PRN BID PRN TP RASH 11/21/20 22:15 Multi-Ingred Cream/Lotion/Oil/ Oint (Hydrocerin) 1 swathi PRN BID PRN TP Dry Hands 11/21/20 22:00 Guaifenesin (Robitussin Dm) 10 ml PRN Q8HRS PRN PO COUGH 11/21/20 22:00 12/23/20 08:40 Insulin Human Lispro (HumaLOG) 20 units TIDWMEALS SQ 11/22/20 08:00 12/23/20 17:20 Insulin Glargine (Lantus Syringe) 30 unit BID SQ 11/21/20 22:00 12/23/20 20:39 Magnesium Chloride (Mag Delay) 64 mg DAILY PO 11/22/20 09:00 12/23/20 08:30 Non-Formulary Medication (Menthol (Biofreeze)) 1 swathi QID PRN TP MUSCLE PAIN 11/21/20 21:45 UNV Pantoprazole Sodium (Protonix) 40 mg DAILY PO 11/22/20 09:00 12/23/20 08:30 Oxybutynin Chloride (Ditropan) 5 mg DAILY PO 11/22/20 09:00 12/23/20 08:30 Polyethylene Glycol (miraLAX) 17 gm DAILY PO 11/22/20 09:00 12/21/20 08:48 Potassium Chloride (Klor-Con) 10 meq DAILY PO 11/22/20 09:00 12/23/20 08:32 Propranolol HCl (Inderal) 40 mg DAILY PO 11/22/20 09:00 12/23/20 08:37 Quetiapine Fumarate (SEROquel) 600 mg HS PO 11/21/20 22:15 12/03/20 18:47 DC 12/02/20 20:08 Saliva Substitute (Biotene Moisturizing Mouth) 2 spray PRN TID PRN PO DRY MOUTH 11/21/20 22:15 Non-Formulary Medication (Semaglutide (Ozempic)) 1 mg QFR SQ 11/23/20 16:00 12/09/20 10:20 DC Pentoxifylline (TRENtal) 400 mg TIDWMEALS PO 11/22/20 08:00 12/23/20 08:24 Vitamin D (Vitamin D3) 2,000 unit DAILY PO 11/22/20 09:00 12/23/20 08:31 Lactobacillus Rhamnosus (Culturelle) 1 cap BID PO 11/22/20 09:00 12/23/20 20:40 Mirtazapine (Remeron) 7.5 mg QHS PO 11/27/20 21:00 12/11/20 17:03 DC 12/10/20 20:08 Divalproex Sodium (Depakote Er) 500 mg QHS PO 11/28/20 21:00 12/01/20 17:12 DC 11/30/20 20:45 Divalproex Sodium (Depakote Er) 1,000 mg QHS PO 12/01/20 21:00 12/21/20 19:55 DC 12/20/20 20:28 Bupropion HCl (Wellbutrin Xl) 150 mg DAILY PO 12/03/20 09:00 12/09/20 16:24 DC 12/09/20 08:14 Quetiapine Fumarate (SEROquel) 200 mg TID PO 12/03/20 21:00 12/06/20 11:47 DC 12/06/20 07:48 Clonazepam (KlonoPIN) 0.5 mg TID PO 12/03/20 21:00 12/23/20 20:41 Trazodone HCl (Desyrel) 100 mg PRN QHS PRN PO INSOMNIA, MRX1 12/04/20 19:15 12/23/20 20:41 Risperidone (RisperDAL) 0.5 mg 0900,1300,1700 PO 12/06/20 13:00 12/07/20 17:12 DC 12/07/20 09:00 Risperidone (RisperDAL) 1.5 mg DAILY PO 12/08/20 09:00 12/07/20 19:50 DC Risperidone (RisperDAL) 1.5 mg DAILY PO 12/07/20 20:00 12/09/20 16:24 DC 12/09/20 08:16 Acetaminophen/ Hydrocodone Bitart (Lortab 5/325) 1 tab PRN TID PRN PO mod-sev PAIN 12/08/20 17:00 12/23/20 20:42 Risperidone (RisperDAL) 2 mg DAILY PO 12/10/20 09:00 12/13/20 12:47 DC 12/13/20 09:29 Mirtazapine (Remeron) 15 mg QHS PO 12/11/20 21:00 12/23/20 20:41 Risperidone (RisperDAL) 3 mg DAILY PO 12/14/20 09:00 12/23/20 07:12 DC 12/22/20 08:31 Risperidone (RisperDAL CONSTA) 25 mg Q2WKS IM 12/14/20 09:00 12/14/20 09:35 Quetiapine Fumarate (SEROquel) 50 mg PRN Q2HR PRN PO ANXIETY/AGITATION, 2ND CHOICE 12/16/20 04:15 12/16/20 04:41 Lorazepam (Ativan) 0.5 mg PRN Q2HR PRN PO ANXIETY/AGITATION, 1ST CHOICE 12/16/20 04:15 12/23/20 17:16 Trazodone HCl (Desyrel) 25 mg 0900,1300,1700 PO 12/18/20 09:00 12/23/20 16:59 DC 12/23/20 12:29 Temazepam (Restoril) 15 mg PRN QHS PRN PO INSOMNIA, MRX1, 1ST CHOICE 12/19/20 18:15 12/22/20 09:00 DC 12/21/20 19:59 Divalproex Sodium (Depakote Sprinkles) 500 mg BID PO 12/21/20 21:00 12/23/20 20:42 Risperidone (RisperDAL) 3 mg DAILY PO 12/23/20 09:00 12/23/20 08:36 Trazodone HCl (Desyrel) 25 mg DAILY PO 12/24/20 09:00 Trazodone HCl (Desyrel) 50 mg 1300,1700 PO 12/23/20 17:00 12/23/20 17:16 Current Medications Medications (Trade) Dose Ordered Sig/Leonides Route PRN Reason Start Time Stop Time Status Last Admin Dose Admin Risperidone (RisperDAL) 3 mg DAILY PO 12/23/20 09:00 12/23/20 08:36 Trazodone HCl (Desyrel) 50 mg 1300,1700 PO 12/23/20 17:00 12/23/20 17:16 I have reviewed the current psychotropics carefully including drug interactions. Risk benefit ratio favors no change other than as noted in my dictated progress note. Diagnosis: Problems: (1) Bipolar disorder, curr episode mixed, severe, with psychotic features (2) Impulse disorder, unspecified (3) Anxiety disorder, unspecified (4) Schizoaffective disorder, bipolar type RAJIV VELAZQUEZ MD Dec 24, 2020 06:56
--- NOTE | 2020-12-24 07:33 | PDOC ---
Exam Note: Donte Note: This note is a late entry for 12/21/2020 covers elements not covered in my initial note. Subjective: The patient was seen face to face in the evening of 12/21/2020 with Elizabeth COPELAND, discussed and reviewed the chart. The patient slept 7 hours previous. She has been intermittently resistive to medications, agitated in the morning with her roommate. If her valproic acid level is low, we will change her Depakote extended release to Sprinkle to help with compliance. Review of Systems: No CV, , pulmonary, eye, ENT system symptoms on review. Mental Status Exam: The patient is alert and oriented. Speech often response is monosyllabic. She continued to be very controlled in her thinking, p reoccupied with some internal stimuli. We are still hoping that Risperdal Consta gradually helps this. Abstraction is fair. Computation is impaired. Language function is intact. Attention span is fair. Mood and affect labile. Laboratory Data: Reviewed. Impression: Schizoaffective disorder, bipolar type, mixed with psychotic features. Anxiety disorder unspecified. Impulse control disorder unspecified. Plan: No change from initial note. Assessment: Vital Signs/I&O: Vital Signs Date Time Temp Pulse Resp B/P (MAP) Pulse Ox O2 Delivery O2 Flow Rate FiO2 12/24/20 06:37 97.2 79 16 141/84 (103) 96 Room Air I & O 12/23/20 12/23/20 12/24/20 15:00 23:00 07:00 Intake Total 720 ml 660 ml 480 ml Balance 720 ml 660 ml 480 ml Labs: Laboratory Tests Test 12/23/20 12:03 12/23/20 19:38 Glucose (Fingerstick) 261 mg/dL (70-99) H 202 mg/dL (70-99) H Current Medications: Meds: Laboratory Tests Test 12/23/20 12:03 12/23/20 19:38 Glucose (Fingerstick) 261 mg/dL 202 mg/dL Current Medications Medications (Trade) Dose Ordered Sig/Leonides Route PRN Reason Start Time Stop Time Status Last Admin Dose Admin Multi-Ingredient Ointment (Analgesic [place]) 1 swathi PRN QID PRN TP MUSCLE PAIN 11/21/20 21:00 Al Hydroxide/Mg Hydroxide (Mylanta Plus Xs) 15 ml PRN AFTMEALHC PRN PO DYSPEPSIA 11/21/20 21:00 Magnesium Hydroxide (Milk Of Magnesia) 2,400 mg PRN QHS PRN PO 1ST CHOICE CONSTIPATION 11/21/20 21:00 Acetaminophen (Tylenol) 650 mg PRN Q4HRS PRN PO MILD PAIN / TEMP > 100.3'F 11/21/20 21:45 12/06/20 22:17 Amoxicillin/ Clavulanate Potassium (Augmentin 875/ 125mg) 1 tab BID PO 11/22/20 09:00 11/24/20 21:01 DC 11/24/20 20:55 Aspirin (Aspirin Enteric Coated) 81 mg DAILY PO 11/22/20 09:00 12/23/20 08:29 Bisacodyl (Dulcolax Tab) 5 mg PRN DAILY PRN PO 2ND CHOICE CONSTIPATION 11/21/20 21:45 Furosemide (Lasix) 40 mg DAILY PO 11/22/20 09:00 12/23/20 08:30 Acetaminophen/ Hydrocodone Bitart (Lortab 5/325) 1 tab PRN BID PRN PO mod-sev PAIN 11/21/20 21:45 12/08/20 17:03 DC 12/08/20 09:20 Ibuprofen (Motrin) 200 mg PRN Q6HRS PRN PO MILD PAIN / TEMP > 100.3'F 11/21/20 21:45 Cancel Albuterol/ Ipratropium (Duoneb) 3 ml PRN BID PRN NEB SHORTNESS OF BREATH 11/21/20 21:45 Levothyroxine Sodium (Synthroid) 112 mcg DAILY06 PO 11/22/20 06:00 12/24/20 05:15 Lorazepam (Ativan) 0.5 mg TID PO 11/21/20 22:00 12/03/20 18:47 DC 12/03/20 13:59 Zolpidem Tartrate (Ambien) 5 mg HS PO 11/21/20 22:00 11/27/20 18:02 DC 11/26/20 20:44 Betamethasone Dipropion Augmented (Betamethasone Dp Aug 0.05% Cream) 1 swathi PRN BID PRN TP RASH 11/21/20 22:15 Multi-Ingred Cream/Lotion/Oil/ Oint (Hydrocerin) 1 swathi PRN BID PRN TP Dry Hands 11/21/20 22:00 Guaifenesin (Robitussin Dm) 10 ml PRN Q8HRS PRN PO COUGH 11/21/20 22:00 12/23/20 08:40 Insulin Human Lispro (HumaLOG) 20 units TIDWMEALS SQ 11/22/20 08:00 12/23/20 17:20 Insulin Glargine (Lantus Syringe) 30 unit BID SQ 11/21/20 22:00 12/23/20 20:39 Magnesium Chloride (Mag Delay) 64 mg DAILY PO 11/22/20 09:00 12/23/20 08:30 Non-Formulary Medication (Menthol (Biofreeze)) 1 swathi QID PRN TP MUSCLE PAIN 11/21/20 21:45 UNV Pantoprazole Sodium (Protonix) 40 mg DAILY PO 11/22/20 09:00 12/23/20 08:30 Oxybutynin Chloride (Ditropan) 5 mg DAILY PO 11/22/20 09:00 12/23/20 08:30 Polyethylene Glycol (miraLAX) 17 gm DAILY PO 11/22/20 09:00 12/21/20 08:48 Potassium Chloride (Klor-Con) 10 meq DAILY PO 11/22/20 09:00 12/23/20 08:32 Propranolol HCl (Inderal) 40 mg DAILY PO 11/22/20 09:00 12/23/20 08:37 Quetiapine Fumarate (SEROquel) 600 mg HS PO 11/21/20 22:15 12/03/20 18:47 DC 12/02/20 20:08 Saliva Substitute (Biotene Moisturizing Mouth) 2 spray PRN TID PRN PO DRY MOUTH 11/21/20 22:15 Non-Formulary Medication (Semaglutide (Ozempic)) 1 mg QFR SQ 11/23/20 16:00 12/09/20 10:20 DC Pentoxifylline (TRENtal) 400 mg TIDWMEALS PO 11/22/20 08:00 12/23/20 08:24 Vitamin D (Vitamin D3) 2,000 unit DAILY PO 11/22/20 09:00 12/23/20 08:31 Lactobacillus Rhamnosus (Culturelle) 1 cap BID PO 11/22/20 09:00 12/23/20 20:40 Mirtazapine (Remeron) 7.5 mg QHS PO 11/27/20 21:00 12/11/20 17:03 DC 12/10/20 20:08 Divalproex Sodium (Depakote Er) 500 mg QHS PO 11/28/20 21:00 12/01/20 17:12 DC 11/30/20 20:45 Divalproex Sodium (Depakote Er) 1,000 mg QHS PO 12/01/20 21:00 12/21/20 19:55 DC 12/20/20 20:28 Bupropion HCl (Wellbutrin Xl) 150 mg DAILY PO 12/03/20 09:00 12/09/20 16:24 DC 12/09/20 08:14 Quetiapine Fumarate (SEROquel) 200 mg TID PO 12/03/20 21:00 12/06/20 11:47 DC 12/06/20 07:48 Clonazepam (KlonoPIN) 0.5 mg TID PO 12/03/20 21:00 12/23/20 20:41 Trazodone HCl (Desyrel) 100 mg PRN QHS PRN PO INSOMNIA, MRX1 12/04/20 19:15 12/23/20 20:41 Risperidone (RisperDAL) 0.5 mg 0900,1300,1700 PO 12/06/20 13:00 12/07/20 17:12 DC 12/07/20 09:00 Risperidone (RisperDAL) 1.5 mg DAILY PO 12/08/20 09:00 12/07/20 19:50 DC Risperidone (RisperDAL) 1.5 mg DAILY PO 12/07/20 20:00 12/09/20 16:24 DC 12/09/20 08:16 Acetaminophen/ Hydrocodone Bitart (Lortab 5/325) 1 tab PRN TID PRN PO mod-sev PAIN 12/08/20 17:00 12/23/20 20:42 Risperidone (RisperDAL) 2 mg DAILY PO 12/10/20 09:00 12/13/20 12:47 DC 12/13/20 09:29 Mirtazapine (Remeron) 15 mg QHS PO 12/11/20 21:00 12/23/20 20:41 Risperidone (RisperDAL) 3 mg DAILY PO 12/14/20 09:00 12/23/20 07:12 DC 12/22/20 08:31 Risperidone (RisperDAL CONSTA) 25 mg Q2WKS IM 12/14/20 09:00 12/14/20 09:35 Quetiapine Fumarate (SEROquel) 50 mg PRN Q2HR PRN PO ANXIETY/AGITATION, 2ND CHOICE 12/16/20 04:15 12/16/20 04:41 Lorazepam (Ativan) 0.5 mg PRN Q2HR PRN PO ANXIETY/AGITATION, 1ST CHOICE 12/16/20 04:15 12/23/20 17:16 Trazodone HCl (Desyrel) 25 mg 0900,1300,1700 PO 12/18/20 09:00 12/23/20 16:59 DC 12/23/20 12:29 Temazepam (Restoril) 15 mg PRN QHS PRN PO INSOMNIA, MRX1, 1ST CHOICE 12/19/20 18:15 12/22/20 09:00 DC 12/21/20 19:59 Divalproex Sodium (Depakote Sprinkles) 500 mg BID PO 12/21/20 21:00 12/23/20 20:42 Risperidone (RisperDAL) 3 mg DAILY PO 12/23/20 09:00 12/23/20 08:36 Trazodone HCl (Desyrel) 25 mg DAILY PO 12/24/20 09:00 Trazodone HCl (Desyrel) 50 mg 1300,1700 PO 12/23/20 17:00 12/23/20 17:16 Current Medications Medications (Trade) Dose Ordered Sig/Leonides Route PRN Reason Start Time Stop Time Status Last Admin Dose Admin Risperidone (RisperDAL) 3 mg DAILY PO 12/23/20 09:00 12/23/20 08:36 Trazodone HCl (Desyrel) 50 mg 1300,1700 PO 12/23/20 17:00 12/23/20 17:16 I have reviewed the current psychotropics carefully including drug interactions. Risk benefit ratio favors no change other than as noted in my dictated progress note. Diagnosis: Problems: (1) Schizoaffective disorder, bipolar type (2) Anxiety disorder, unspecified (3) Impulse disorder, unspecified (4) Bipolar disorder, curr episode mixed, severe, with psychotic features RAJIV VELAZQUEZ MD Dec 24, 2020 07:33
[2020-12-24] MEDS: PENTOXIFYLLINE ER 400 MG TABLET.ER. PO SCH ×3 (08:00→17:32)
[2020-12-24] MEDS: INSULIN LISPRO 300 UNITS/3 ML VIAL. SQ SCH ×3 (08:00→17:37)
--- NOTE | 2020-12-24 08:00 | PDOC ---
Exam Note: Donte Note: This note is a late entry for 12/22/2020 covers elements not covered in my initial note. Subjective: The patient was seen face to face in the evening of 12/22/2020 with Deisy COPELAND, discussed and reviewed the chart. The patient slept 5-1/2 hours previous night. Previous night, the patient had to be from her room, because of agitation, threatening the roommate. She had to be placed in the West hallway and then was flashing, undressing herself, one staff members would walk by. She has been more cooperative during the day on 12/22/2020. Valproic acid level repeat is 57. We will repeat it again on the 12/24. Review of Systems: No CV, , pulmonary, eye, ENT system symptoms on review. Mental Status Exam: The patient is alert and oriented. Speech verbal response is monosyllabic, low in rate and rhythm. Abstraction is fair. Computation is impaired. Language function is intact. Attention span is short. Mood and affect still somewhat paranoid, psychotic, perhaps a little better. Laboratory Data: Reviewed. Impression: Schizoaffective disorder, bipolar type, mixed with psychotic features. Anxiety disorder unspecified. Impulse control disorder unspecified. Plan: No change from initial note. Assessment: Vital Signs/I&O: Vital Signs Date Time Temp Pulse Resp B/P (MAP) Pulse Ox O2 Delivery O2 Flow Rate FiO2 12/24/20 06:37 97.2 79 16 141/84 (103) 96 Room Air I & O 12/23/20 12/23/20 12/24/20 15:00 23:00 07:00 Intake Total 720 ml 660 ml 480 ml Balance 720 ml 660 ml 480 ml Labs: Laboratory Tests Test 12/23/20 12:03 12/23/20 19:38 12/24/20 07:32 Glucose (Fingerstick) 261 mg/dL (70-99) H 202 mg/dL (70-99) H 136 mg/dL (70-99) H Current Medications: Meds: Laboratory Tests Test 12/23/20 12:03 12/23/20 19:38 12/24/20 07:32 Glucose (Fingerstick) 261 mg/dL 202 mg/dL 136 mg/dL Current Medications Medications (Trade) Dose Ordered Sig/Leonides Route PRN Reason Start Time Stop Time Status Last Admin Dose Admin Multi-Ingredient Ointment (Analgesic [place]) 1 swathi PRN QID PRN TP MUSCLE PAIN 11/21/20 21:00 Al Hydroxide/Mg Hydroxide (Mylanta Plus Xs) 15 ml PRN AFTMEALHC PRN PO DYSPEPSIA 11/21/20 21:00 Magnesium Hydroxide (Milk Of Magnesia) 2,400 mg PRN QHS PRN PO 1ST CHOICE CONSTIPATION 11/21/20 21:00 Acetaminophen (Tylenol) 650 mg PRN Q4HRS PRN PO MILD PAIN / TEMP > 100.3'F 11/21/20 21:45 12/06/20 22:17 Amoxicillin/ Clavulanate Potassium (Augmentin 875/ 125mg) 1 tab BID PO 11/22/20 09:00 11/24/20 21:01 DC 11/24/20 20:55 Aspirin (Aspirin Enteric Coated) 81 mg DAILY PO 11/22/20 09:00 12/23/20 08:29 Bisacodyl (Dulcolax Tab) 5 mg PRN DAILY PRN PO 2ND CHOICE CONSTIPATION 11/21/20 21:45 Furosemide (Lasix) 40 mg DAILY PO 11/22/20 09:00 12/23/20 08:30 Acetaminophen/ Hydrocodone Bitart (Lortab 5/325) 1 tab PRN BID PRN PO mod-sev PAIN 11/21/20 21:45 12/08/20 17:03 DC 12/08/20 09:20 Ibuprofen (Motrin) 200 mg PRN Q6HRS PRN PO MILD PAIN / TEMP > 100.3'F 11/21/20 21:45 Cancel Albuterol/ Ipratropium (Duoneb) 3 ml PRN BID PRN NEB SHORTNESS OF BREATH 11/21/20 21:45 Levothyroxine Sodium (Synthroid) 112 mcg DAILY06 PO 11/22/20 06:00 12/24/20 05:15 Lorazepam (Ativan) 0.5 mg TID PO 11/21/20 22:00 12/03/20 18:47 DC 12/03/20 13:59 Zolpidem Tartrate (Ambien) 5 mg HS PO 11/21/20 22:00 11/27/20 18:02 DC 11/26/20 20:44 Betamethasone Dipropion Augmented (Betamethasone Dp Aug 0.05% Cream) 1 swathi PRN BID PRN TP RASH 11/21/20 22:15 Multi-Ingred Cream/Lotion/Oil/ Oint (Hydrocerin) 1 swathi PRN BID PRN TP Dry Hands 11/21/20 22:00 Guaifenesin (Robitussin Dm) 10 ml PRN Q8HRS PRN PO COUGH 11/21/20 22:00 12/23/20 08:40 Insulin Human Lispro (HumaLOG) 20 units TIDWMEALS SQ 11/22/20 08:00 12/23/20 17:20 Insulin Glargine (Lantus Syringe) 30 unit BID SQ 11/21/20 22:00 12/23/20 20:39 Magnesium Chloride (Mag Delay) 64 mg DAILY PO 11/22/20 09:00 12/23/20 08:30 Non-Formulary Medication (Menthol (Biofreeze)) 1 swathi QID PRN TP MUSCLE PAIN 11/21/20 21:45 UNV Pantoprazole Sodium (Protonix) 40 mg DAILY PO 11/22/20 09:00 12/23/20 08:30 Oxybutynin Chloride (Ditropan) 5 mg DAILY PO 11/22/20 09:00 12/23/20 08:30 Polyethylene Glycol (miraLAX) 17 gm DAILY PO 11/22/20 09:00 12/21/20 08:48 Potassium Chloride (Klor-Con) 10 meq DAILY PO 11/22/20 09:00 12/23/20 08:32 Propranolol HCl (Inderal) 40 mg DAILY PO 11/22/20 09:00 12/23/20 08:37 Quetiapine Fumarate (SEROquel) 600 mg HS PO 11/21/20 22:15 12/03/20 18:47 DC 12/02/20 20:08 Saliva Substitute (Biotene Moisturizing Mouth) 2 spray PRN TID PRN PO DRY MOUTH 11/21/20 22:15 Non-Formulary Medication (Semaglutide (Ozempic)) 1 mg QFR SQ 11/23/20 16:00 12/09/20 10:20 DC Pentoxifylline (TRENtal) 400 mg TIDWMEALS PO 11/22/20 08:00 12/23/20 08:24 Vitamin D (Vitamin D3) 2,000 unit DAILY PO 11/22/20 09:00 12/23/20 08:31 Lactobacillus Rhamnosus (Culturelle) 1 cap BID PO 11/22/20 09:00 12/23/20 20:40 Mirtazapine (Remeron) 7.5 mg QHS PO 11/27/20 21:00 12/11/20 17:03 DC 12/10/20 20:08 Divalproex Sodium (Depakote Er) 500 mg QHS PO 11/28/20 21:00 12/01/20 17:12 DC 11/30/20 20:45 Divalproex Sodium (Depakote Er) 1,000 mg QHS PO 12/01/20 21:00 12/21/20 19:55 DC 12/20/20 20:28 Bupropion HCl (Wellbutrin Xl) 150 mg DAILY PO 12/03/20 09:00 12/09/20 16:24 DC 12/09/20 08:14 Quetiapine Fumarate (SEROquel) 200 mg TID PO 12/03/20 21:00 12/06/20 11:47 DC 12/06/20 07:48 Clonazepam (KlonoPIN) 0.5 mg TID PO 12/03/20 21:00 12/23/20 20:41 Trazodone HCl (Desyrel) 100 mg PRN QHS PRN PO INSOMNIA, MRX1 12/04/20 19:15 12/23/20 20:41 Risperidone (RisperDAL) 0.5 mg 0900,1300,1700 PO 12/06/20 13:00 12/07/20 17:12 DC 12/07/20 09:00 Risperidone (RisperDAL) 1.5 mg DAILY PO 12/08/20 09:00 12/07/20 19:50 DC Risperidone (RisperDAL) 1.5 mg DAILY PO 12/07/20 20:00 12/09/20 16:24 DC 12/09/20 08:16 Acetaminophen/ Hydrocodone Bitart (Lortab 5/325) 1 tab PRN TID PRN PO mod-sev PAIN 12/08/20 17:00 12/23/20 20:42 Risperidone (RisperDAL) 2 mg DAILY PO 12/10/20 09:00 12/13/20 12:47 DC 12/13/20 09:29 Mirtazapine (Remeron) 15 mg QHS PO 12/11/20 21:00 12/23/20 20:41 Risperidone (RisperDAL) 3 mg DAILY PO 12/14/20 09:00 12/23/20 07:12 DC 12/22/20 08:31 Risperidone (RisperDAL CONSTA) 25 mg Q2WKS IM 12/14/20 09:00 12/14/20 09:35 Quetiapine Fumarate (SEROquel) 50 mg PRN Q2HR PRN PO ANXIETY/AGITATION, 2ND CHOICE 12/16/20 04:15 12/16/20 04:41 Lorazepam (Ativan) 0.5 mg PRN Q2HR PRN PO ANXIETY/AGITATION, 1ST CHOICE 12/16/20 04:15 12/23/20 17:16 Trazodone HCl (Desyrel) 25 mg 0900,1300,1700 PO 12/18/20 09:00 12/23/20 16:59 DC 12/23/20 12:29 Temazepam (Restoril) 15 mg PRN QHS PRN PO INSOMNIA, MRX1, 1ST CHOICE 12/19/20 18:15 12/22/20 09:00 DC 12/21/20 19:59 Divalproex Sodium (Depakote Sprinkles) 500 mg BID PO 12/21/20 21:00 12/23/20 20:42 Risperidone (RisperDAL) 3 mg DAILY PO 12/23/20 09:00 12/23/20 08:36 Trazodone HCl (Desyrel) 25 mg DAILY PO 12/24/20 09:00 Trazodone HCl (Desyrel) 50 mg 1300,1700 PO 12/23/20 17:00 12/23/20 17:16 Current Medications Medications (Trade) Dose Ordered Sig/Leonides Route PRN Reason Start Time Stop Time Status Last Admin Dose Admin Risperidone (RisperDAL) 3 mg DAILY PO 12/23/20 09:00 12/23/20 08:36 Trazodone HCl (Desyrel) 50 mg 1300,1700 PO 12/23/20 17:00 12/23/20 17:16 I have reviewed the current psychotropics carefully including drug interactions. Risk benefit ratio favors no change other than as noted in my dictated progress note. Diagnosis: Problems: (1) Schizoaffective disorder, bipolar type (2) Anxiety disorder, unspecified (3) Impulse disorder, unspecified (4) Bipolar disorder, curr episode mixed, severe, with psychotic features RAJIV VELAZQUEZ MD Dec 24, 2020 08:00
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
[2020-12-24] MEDS: POTASSIUM CHLORIDE 10 MEQ TABLET.ER. PO SCH (09:00)
[2020-12-24] MEDS: PANTOPRAZOLE 40 MG TABLET. PO SCH (09:00)
[2020-12-24] MEDS: traZODone 50 MG TABLET. PO SCH ×3 (09:00→17:32)
[2020-12-24] MEDS: INSULIN GLARGINE SYRINGE. SQ SCH ×2 (09:00→21:25)
[2020-12-24] MEDS: POLYETHYLENE GLYCOL 3350 17 GM PACKET. PO SCH (09:00)
[2020-12-24] MEDS: MAGNESIUM CHLORIDE ER 64 MG TABLET.ER PO SCH (09:00)
[2020-12-24] MEDS: LACTOBACILLUS RHAMNOSUS GG 1 CAPSULE. PO SCH ×2 (09:00→20:11)
[2020-12-24] MEDS: OXYBUTYNIN CHLORIDE 5 MG TABLET PO SCH (09:00)
[2020-12-24] MEDS: DIVALPROEX 125 MG CAP.SPRINK PO SCH ×2 (09:00→20:11)
[2020-12-24] MEDS: FUROSEMIDE 40 MG TABLET PO SCH (09:00)
[2020-12-24] MEDS: clonazePAM 0.5 MG TABLET PO SCH ×3 (09:00→20:12)
[2020-12-24] MEDS: risperiDONE 1 MG TABLET. PO SCH (09:00)
[2020-12-24] MEDS: PROPRANOLOL 20 MG TABLET. PO SCH (09:00)
[2020-12-24] MEDS: CHOLECALCIFEROL (VITAMIN D3) 1,000 UNIT TABLET PO SCH (09:00)
[2020-12-24] MEDS: ASPIRIN ENTERIC COATED 81 MG TABLET.DR. PO SCH (09:00)
[2020-12-24 16:15] VITALS: BP 135/77
[2020-12-24] MEDS: MIRTAZAPINE 15 MG TABLET PO SCH (20:11)
--- NOTE | 2020-12-24 21:12 | PDOC ---
Exam Note: Donte Note: Please also refer to the separate dictated note~for this date of service dictated separately.~Patient seen individually. Discussed the patient with Nursing staff reviewed the chart.~Reviewed interim history and current functioning. Reviewed vital signs,~Labs/ Radiology~and current medications noted below. Continue current treatment with the changes noted in the dictated addendum note Assessment: Vital Signs/I&O: Vital Signs Date Time Temp Pulse Resp B/P (MAP) Pulse Ox O2 Delivery O2 Flow Rate FiO2 12/24/20 16:15 97.1 69 18 135/77 (96) 98 12/24/20 06:37 Room Air I & O 12/23/20 12/23/20 12/24/20 14:59 22:59 06:59 Intake Total 720 ml 660 ml 480 ml Balance 720 ml 660 ml 480 ml Labs: Laboratory Tests Test 12/24/20 07:32 12/24/20 12:03 12/24/20 16:39 12/24/20 19:17 Glucose (Fingerstick) 136 mg/dL (70-99) H 168 mg/dL (70-99) H 201 mg/dL (70-99) H 269 mg/dL (70-99) H Current Medications: Meds: Laboratory Tests Test 12/24/20 07:32 12/24/20 12:03 12/24/20 16:39 12/24/20 19:17 Glucose (Fingerstick) 136 mg/dL 168 mg/dL 201 mg/dL 269 mg/dL Current Medications Medications (Trade) Dose Ordered Sig/Leonides Route PRN Reason Start Time Stop Time Status Last Admin Dose Admin Multi-Ingredient Ointment (Analgesic [place]) 1 swathi PRN QID PRN TP MUSCLE PAIN 11/21/20 21:00 Al Hydroxide/Mg Hydroxide (Mylanta Plus Xs) 15 ml PRN AFTMEALHC PRN PO DYSPEPSIA 11/21/20 21:00 Magnesium Hydroxide (Milk Of Magnesia) 2,400 mg PRN QHS PRN PO 1ST CHOICE CONSTIPATION 11/21/20 21:00 Acetaminophen (Tylenol) 650 mg PRN Q4HRS PRN PO MILD PAIN / TEMP > 100.3'F 11/21/20 21:45 12/06/20 22:17 Amoxicillin/ Clavulanate Potassium (Augmentin 875/ 125mg) 1 tab BID PO 11/22/20 09:00 11/24/20 21:01 DC 11/24/20 20:55 Aspirin (Aspirin Enteric Coated) 81 mg DAILY PO 11/22/20 09:00 12/23/20 08:29 Bisacodyl (Dulcolax Tab) 5 mg PRN DAILY PRN PO 2ND CHOICE CONSTIPATION 11/21/20 21:45 Furosemide (Lasix) 40 mg DAILY PO 11/22/20 09:00 12/23/20 08:30 Acetaminophen/ Hydrocodone Bitart (Lortab 5/325) 1 tab PRN BID PRN PO mod-sev PAIN 11/21/20 21:45 12/08/20 17:03 DC 12/08/20 09:20 Ibuprofen (Motrin) 200 mg PRN Q6HRS PRN PO MILD PAIN / TEMP > 100.3'F 11/21/20 21:45 Cancel Albuterol/ Ipratropium (Duoneb) 3 ml PRN BID PRN NEB SHORTNESS OF BREATH 11/21/20 21:45 Levothyroxine Sodium (Synthroid) 112 mcg DAILY06 PO 11/22/20 06:00 12/24/20 05:15 Lorazepam (Ativan) 0.5 mg TID PO 11/21/20 22:00 12/03/20 18:47 DC 12/03/20 13:59 Zolpidem Tartrate (Ambien) 5 mg HS PO 11/21/20 22:00 11/27/20 18:02 DC 11/26/20 20:44 Betamethasone Dipropion Augmented (Betamethasone Dp Aug 0.05% Cream) 1 swathi PRN BID PRN TP RASH 11/21/20 22:15 Multi-Ingred Cream/Lotion/Oil/ Oint (Hydrocerin) 1 swathi PRN BID PRN TP Dry Hands 11/21/20 22:00 Guaifenesin (Robitussin Dm) 10 ml PRN Q8HRS PRN PO COUGH 11/21/20 22:00 12/23/20 08:40 Insulin Human Lispro (HumaLOG) 20 units TIDWMEALS SQ 11/22/20 08:00 12/24/20 17:37 Insulin Glargine (Lantus Syringe) 30 unit BID SQ 11/21/20 22:00 12/23/20 20:39 Magnesium Chloride (Mag Delay) 64 mg DAILY PO 11/22/20 09:00 12/23/20 08:30 Non-Formulary Medication (Menthol (Biofreeze)) 1 swathi QID PRN TP MUSCLE PAIN 11/21/20 21:45 UNV Pantoprazole Sodium (Protonix) 40 mg DAILY PO 11/22/20 09:00 12/23/20 08:30 Oxybutynin Chloride (Ditropan) 5 mg DAILY PO 11/22/20 09:00 12/23/20 08:30 Polyethylene Glycol (miraLAX) 17 gm DAILY PO 11/22/20 09:00 12/21/20 08:48 Potassium Chloride (Klor-Con) 10 meq DAILY PO 11/22/20 09:00 12/23/20 08:32 Propranolol HCl (Inderal) 40 mg DAILY PO 11/22/20 09:00 12/23/20 08:37 Quetiapine Fumarate (SEROquel) 600 mg HS PO 11/21/20 22:15 12/03/20 18:47 DC 12/02/20 20:08 Saliva Substitute (Biotene Moisturizing Mouth) 2 spray PRN TID PRN PO DRY MOUTH 11/21/20 22:15 Non-Formulary Medication (Semaglutide (Ozempic)) 1 mg QFR SQ 11/23/20 16:00 12/09/20 10:20 DC Pentoxifylline (TRENtal) 400 mg TIDWMEALS PO 11/22/20 08:00 12/24/20 17:32 Vitamin D (Vitamin D3) 2,000 unit DAILY PO 11/22/20 09:00 12/23/20 08:31 Lactobacillus Rhamnosus (Culturelle) 1 cap BID PO 11/22/20 09:00 12/24/20 20:11 Mirtazapine (Remeron) 7.5 mg QHS PO 11/27/20 21:00 12/11/20 17:03 DC 12/10/20 20:08 Divalproex Sodium (Depakote Er) 500 mg QHS PO 11/28/20 21:00 12/01/20 17:12 DC 11/30/20 20:45 Divalproex Sodium (Depakote Er) 1,000 mg QHS PO 12/01/20 21:00 12/21/20 19:55 DC 12/20/20 20:28 Bupropion HCl (Wellbutrin Xl) 150 mg DAILY PO 12/03/20 09:00 12/09/20 16:24 DC 12/09/20 08:14 Quetiapine Fumarate (SEROquel) 200 mg TID PO 12/03/20 21:00 12/06/20 11:47 DC 12/06/20 07:48 Clonazepam (KlonoPIN) 0.5 mg TID PO 12/03/20 21:00 12/24/20 20:12 Trazodone HCl (Desyrel) 100 mg PRN QHS PRN PO INSOMNIA, MRX1 12/04/20 19:15 12/23/20 20:41 Risperidone (RisperDAL) 0.5 mg 0900,1300,1700 PO 12/06/20 13:00 12/07/20 17:12 DC 12/07/20 09:00 Risperidone (RisperDAL) 1.5 mg DAILY PO 12/08/20 09:00 12/07/20 19:50 DC Risperidone (RisperDAL) 1.5 mg DAILY PO 12/07/20 20:00 12/09/20 16:24 DC 12/09/20 08:16 Acetaminophen/ Hydrocodone Bitart (Lortab 5/325) 1 tab PRN TID PRN PO mod-sev PAIN 12/08/20 17:00 12/23/20 20:42 Risperidone (RisperDAL) 2 mg DAILY PO 12/10/20 09:00 12/13/20 12:47 DC 12/13/20 09:29 Mirtazapine (Remeron) 15 mg QHS PO 12/11/20 21:00 12/24/20 20:11 Risperidone (RisperDAL) 3 mg DAILY PO 12/14/20 09:00 12/23/20 07:12 DC 12/22/20 08:31 Risperidone (RisperDAL CONSTA) 25 mg Q2WKS IM 12/14/20 09:00 12/14/20 09:35 Quetiapine Fumarate (SEROquel) 50 mg PRN Q2HR PRN PO ANXIETY/AGITATION, 2ND CHOICE 12/16/20 04:15 12/16/20 04:41 Lorazepam (Ativan) 0.5 mg PRN Q2HR PRN PO ANXIETY/AGITATION, 1ST CHOICE 12/16/20 04:15 12/23/20 17:16 Trazodone HCl (Desyrel) 25 mg 0900,1300,1700 PO 12/18/20 09:00 12/23/20 16:59 DC 12/23/20 12:29 Temazepam (Restoril) 15 mg PRN QHS PRN PO INSOMNIA, MRX1, 1ST CHOICE 12/19/20 18:15 12/22/20 09:00 DC 12/21/20 19:59 Divalproex Sodium (Depakote Sprinkles) 500 mg BID PO 12/21/20 21:00 12/24/20 20:11 Risperidone (RisperDAL) 3 mg DAILY PO 12/23/20 09:00 12/23/20 08:36 Trazodone HCl (Desyrel) 25 mg DAILY PO 12/24/20 09:00 Trazodone HCl (Desyrel) 50 mg 1300,1700 PO 12/23/20 17:00 12/24/20 17:32 I have reviewed the current psychotropics carefully including drug interactions. Risk benefit ratio favors no change other than as noted in my dictated progress note. Diagnosis: Problems: (1) Schizoaffective disorder, bipolar type (2) Anxiety disorder, unspecified (3) Impulse disorder, unspecified (4) Bipolar disorder, curr episode mixed, severe, with psychotic features RAJIV VELAZQUEZ MD Dec 24, 2020 21:12
[2020-12-25] MEDS: LEVOTHYROXINE 112 MCG TABLET PO SCH (05:21)
[2020-12-25 06:08] VITALS: BP 122/79
[2020-12-25] MEDS: PENTOXIFYLLINE ER 400 MG TABLET.ER. PO SCH ×3 (08:00→17:44)
[2020-12-25] MEDS: INSULIN LISPRO 300 UNITS/3 ML VIAL. SQ SCH ×3 (08:00→17:00)
[2020-12-25] MEDS: clonazePAM 0.5 MG TABLET PO SCH ×3 (09:00→20:24)
[2020-12-25] MEDS: OXYBUTYNIN CHLORIDE 5 MG TABLET PO SCH (09:00)
[2020-12-25] MEDS: traZODone 50 MG TABLET. PO SCH ×3 (09:00→17:44)
[2020-12-25] MEDS: MAGNESIUM CHLORIDE ER 64 MG TABLET.ER PO SCH (09:00)
[2020-12-25] MEDS: LACTOBACILLUS RHAMNOSUS GG 1 CAPSULE. PO SCH ×2 (09:00→20:23)
[2020-12-25] MEDS: ASPIRIN ENTERIC COATED 81 MG TABLET.DR. PO SCH (09:00)
[2020-12-25] MEDS: DIVALPROEX 125 MG CAP.SPRINK PO SCH ×2 (09:00→20:23)
[2020-12-25] MEDS: CHOLECALCIFEROL (VITAMIN D3) 1,000 UNIT TABLET PO SCH (09:00)
[2020-12-25] MEDS: POTASSIUM CHLORIDE 10 MEQ TABLET.ER. PO SCH (09:00)
[2020-12-25] MEDS: INSULIN GLARGINE SYRINGE. SQ SCH ×2 (09:00→21:40)
[2020-12-25] MEDS: POLYETHYLENE GLYCOL 3350 17 GM PACKET. PO SCH (09:00)
[2020-12-25] MEDS: PROPRANOLOL 20 MG TABLET. PO SCH (09:00)
[2020-12-25] MEDS: PANTOPRAZOLE 40 MG TABLET. PO SCH (09:00)
[2020-12-25] MEDS: risperiDONE 1 MG TABLET. PO SCH (09:00)
[2020-12-25] MEDS: FUROSEMIDE 40 MG TABLET PO SCH (09:00)
[2020-12-25] MEDS: HYDROcodone/APAP 5/325MG 1 TAB TABLET PO PRN ×2 (15:48→21:47)
[2020-12-25 16:25] VITALS: BP 102/68
[2020-12-25] MEDS: MIRTAZAPINE 15 MG TABLET PO SCH (20:23)
--- NOTE | 2020-12-25 21:37 | PDOC ---
Exam Note: Donte Note: This note is a late entry for 12/24/2020 covers elements not covered in my initial note. Subjective: The patient was seen face to face in the evening of 12/24/2020 with Deisy COPELAND, discussed and reviewed the chart. The patient slept 3-1/2 hours previous night. The patient had a good day. She was somewhat resistive to meds in the morning, paranoid, feeling one of the other patients is trying to kill her. Review of Systems: No CV, , pulmonary, eye, ENT system symptoms on review. Mental Status Exam: The patient is oriented to herself and situation. Speech moderate latency. Often response is monosyllabic. Abstraction is fair. Computation is impaired. Language function is intact. Mood and affect somewhat withdrawn. Laboratory Data: Reviewed. Impression: Schizoaffective disorder, bipolar type, mixed with psychotic features. Anxiety disorder unspecified. Impulse control disorder unspecified. Plan: No change from initial note. Assessment: Vital Signs/I&O: Vital Signs Date Time Temp Pulse Resp B/P (MAP) Pulse Ox O2 Delivery O2 Flow Rate FiO2 12/25/20 18:19 16 98 Room Air 12/25/20 16:25 98.0 75 102/68 (79) I & O 12/24/20 12/24/20 12/25/20 15:00 23:00 07:00 Intake Total 840 ml 660 ml 480 ml Balance 840 ml 660 ml 480 ml Labs: Laboratory Tests Test 12/25/20 07:45 12/25/20 11:39 12/25/20 17:04 12/25/20 19:24 Glucose (Fingerstick) 128 mg/dL (70-99) H 188 mg/dL (70-99) H 188 mg/dL (70-99) H 190 mg/dL (70-99) H Current Medications: Meds: Laboratory Tests Test 12/25/20 07:45 12/25/20 11:39 12/25/20 17:04 12/25/20 19:24 Glucose (Fingerstick) 128 mg/dL 188 mg/dL 188 mg/dL 190 mg/dL Current Medications Medications (Trade) Dose Ordered Sig/Leonides Route PRN Reason Start Time Stop Time Status Last Admin Dose Admin Multi-Ingredient Ointment (Analgesic [place]) 1 swathi PRN QID PRN TP MUSCLE PAIN 11/21/20 21:00 Al Hydroxide/Mg Hydroxide (Mylanta Plus Xs) 15 ml PRN AFTMEALHC PRN PO DYSPEPSIA 11/21/20 21:00 Magnesium Hydroxide (Milk Of Magnesia) 2,400 mg PRN QHS PRN PO 1ST CHOICE CONSTIPATION 11/21/20 21:00 Acetaminophen (Tylenol) 650 mg PRN Q4HRS PRN PO MILD PAIN / TEMP > 100.3'F 11/21/20 21:45 12/06/20 22:17 Amoxicillin/ Clavulanate Potassium (Augmentin 875/ 125mg) 1 tab BID PO 11/22/20 09:00 11/24/20 21:01 DC 11/24/20 20:55 Aspirin (Aspirin Enteric Coated) 81 mg DAILY PO 11/22/20 09:00 12/25/20 09:00 Bisacodyl (Dulcolax Tab) 5 mg PRN DAILY PRN PO 2ND CHOICE CONSTIPATION 11/21/20 21:45 Furosemide (Lasix) 40 mg DAILY PO 11/22/20 09:00 12/25/20 09:00 Acetaminophen/ Hydrocodone Bitart (Lortab 5/325) 1 tab PRN BID PRN PO mod-sev PAIN 11/21/20 21:45 12/08/20 17:03 DC 12/08/20 09:20 Ibuprofen (Motrin) 200 mg PRN Q6HRS PRN PO MILD PAIN / TEMP > 100.3'F 11/21/20 21:45 Cancel Albuterol/ Ipratropium (Duoneb) 3 ml PRN BID PRN NEB SHORTNESS OF BREATH 11/21/20 21:45 Levothyroxine Sodium (Synthroid) 112 mcg DAILY06 PO 11/22/20 06:00 12/25/20 05:21 Lorazepam (Ativan) 0.5 mg TID PO 11/21/20 22:00 12/03/20 18:47 DC 12/03/20 13:59 Zolpidem Tartrate (Ambien) 5 mg HS PO 11/21/20 22:00 11/27/20 18:02 DC 11/26/20 20:44 Betamethasone Dipropion Augmented (Betamethasone Dp Aug 0.05% Cream) 1 swathi PRN BID PRN TP RASH 11/21/20 22:15 Multi-Ingred Cream/Lotion/Oil/ Oint (Hydrocerin) 1 swathi PRN BID PRN TP Dry Hands 11/21/20 22:00 Guaifenesin (Robitussin Dm) 10 ml PRN Q8HRS PRN PO COUGH 11/21/20 22:00 12/23/20 08:40 Insulin Human Lispro (HumaLOG) 20 units TIDWMEALS SQ 11/22/20 08:00 12/25/20 17:00 Insulin Glargine (Lantus Syringe) 30 unit BID SQ 11/21/20 22:00 12/25/20 09:00 Magnesium Chloride (Mag Delay) 64 mg DAILY PO 11/22/20 09:00 12/25/20 09:00 Non-Formulary Medication (Menthol (Biofreeze)) 1 swathi QID PRN TP MUSCLE PAIN 11/21/20 21:45 UNV Pantoprazole Sodium (Protonix) 40 mg DAILY PO 11/22/20 09:00 12/25/20 09:00 Oxybutynin Chloride (Ditropan) 5 mg DAILY PO 11/22/20 09:00 12/25/20 09:00 Polyethylene Glycol (miraLAX) 17 gm DAILY PO 11/22/20 09:00 12/25/20 09:00 Potassium Chloride (Klor-Con) 10 meq DAILY PO 11/22/20 09:00 12/25/20 09:00 Propranolol HCl (Inderal) 40 mg DAILY PO 11/22/20 09:00 12/25/20 09:00 Quetiapine Fumarate (SEROquel) 600 mg HS PO 11/21/20 22:15 12/03/20 18:47 DC 12/02/20 20:08 Saliva Substitute (Biotene Moisturizing Mouth) 2 spray PRN TID PRN PO DRY MOUTH 11/21/20 22:15 Non-Formulary Medication (Semaglutide (Ozempic)) 1 mg QFR SQ 11/23/20 16:00 12/09/20 10:20 DC Pentoxifylline (TRENtal) 400 mg TIDWMEALS PO 11/22/20 08:00 12/25/20 17:44 Vitamin D (Vitamin D3) 2,000 unit DAILY PO 11/22/20 09:00 12/25/20 09:00 Lactobacillus Rhamnosus (Culturelle) 1 cap BID PO 11/22/20 09:00 12/25/20 20:23 Mirtazapine (Remeron) 7.5 mg QHS PO 11/27/20 21:00 12/11/20 17:03 DC 12/10/20 20:08 Divalproex Sodium (Depakote Er) 500 mg QHS PO 11/28/20 21:00 12/01/20 17:12 DC 11/30/20 20:45 Divalproex Sodium (Depakote Er) 1,000 mg QHS PO 12/01/20 21:00 12/21/20 19:55 DC 12/20/20 20:28 Bupropion HCl (Wellbutrin Xl) 150 mg DAILY PO 12/03/20 09:00 12/09/20 16:24 DC 12/09/20 08:14 Quetiapine Fumarate (SEROquel) 200 mg TID PO 12/03/20 21:00 12/06/20 11:47 DC 12/06/20 07:48 Clonazepam (KlonoPIN) 0.5 mg TID PO 12/03/20 21:00 12/25/20 20:24 Trazodone HCl (Desyrel) 100 mg PRN QHS PRN PO INSOMNIA, MRX1 12/04/20 19:15 12/23/20 20:41 Risperidone (RisperDAL) 0.5 mg 0900,1300,1700 PO 12/06/20 13:00 12/07/20 17:12 DC 12/07/20 09:00 Risperidone (RisperDAL) 1.5 mg DAILY PO 12/08/20 09:00 12/07/20 19:50 DC Risperidone (RisperDAL) 1.5 mg DAILY PO 12/07/20 20:00 12/09/20 16:24 DC 12/09/20 08:16 Acetaminophen/ Hydrocodone Bitart (Lortab 5/325) 1 tab PRN TID PRN PO mod-sev PAIN 12/08/20 17:00 12/25/20 15:48 Risperidone (RisperDAL) 2 mg DAILY PO 12/10/20 09:00 12/13/20 12:47 DC 12/13/20 09:29 Mirtazapine (Remeron) 15 mg QHS PO 12/11/20 21:00 12/25/20 20:23 Risperidone (RisperDAL) 3 mg DAILY PO 12/14/20 09:00 12/23/20 07:12 DC 12/22/20 08:31 Risperidone (RisperDAL CONSTA) 25 mg Q2WKS IM 12/14/20 09:00 12/14/20 09:35 Quetiapine Fumarate (SEROquel) 50 mg PRN Q2HR PRN PO ANXIETY/AGITATION, 2ND CHOICE 12/16/20 04:15 12/16/20 04:41 Lorazepam (Ativan) 0.5 mg PRN Q2HR PRN PO ANXIETY/AGITATION, 1ST CHOICE 12/16/20 04:15 12/23/20 17:16 Trazodone HCl (Desyrel) 25 mg 0900,1300,1700 PO 12/18/20 09:00 12/23/20 16:59 DC 12/23/20 12:29 Temazepam (Restoril) 15 mg PRN QHS PRN PO INSOMNIA, MRX1, 1ST CHOICE 12/19/20 18:15 12/22/20 09:00 DC 12/21/20 19:59 Divalproex Sodium (Depakote Sprinkles) 500 mg BID PO 12/21/20 21:00 12/25/20 20:23 Risperidone (RisperDAL) 3 mg DAILY PO 12/23/20 09:00 12/25/20 09:00 Trazodone HCl (Desyrel) 25 mg DAILY PO 12/24/20 09:00 12/25/20 09:00 Trazodone HCl (Desyrel) 50 mg 1300,1700 PO 12/23/20 17:00 12/25/20 17:44 I have reviewed the current psychotropics carefully including drug interactions. Risk benefit ratio favors no change other than as noted in my dictated progress note. Diagnosis: Problems: (1) Schizoaffective disorder, bipolar type (2) Anxiety disorder, unspecified (3) Impulse disorder, unspecified (4) Bipolar disorder, curr episode mixed, severe, with psychotic features RAJIV VELAZQUEZ MD Dec 25, 2020 21:37
--- NOTE | 2020-12-25 21:38 | PDOC ---
Exam Note: Donte Note: Please also refer to the separate dictated note~for this date of service dictated separately.~Patient seen individually. Discussed the patient with Nursing staff reviewed the chart.~Reviewed interim history and current functioning. Reviewed vital signs,~Labs/ Radiology~and current medications noted below. Continue current treatment with the changes noted in the dictated addendum note Assessment: Vital Signs/I&O: Vital Signs Date Time Temp Pulse Resp B/P (MAP) Pulse Ox O2 Delivery O2 Flow Rate FiO2 12/25/20 18:19 16 98 Room Air 12/25/20 16:25 98.0 75 102/68 (79) I & O 12/24/20 12/24/20 12/25/20 15:00 23:00 07:00 Intake Total 840 ml 660 ml 480 ml Balance 840 ml 660 ml 480 ml Labs: Laboratory Tests Test 12/25/20 07:45 12/25/20 11:39 12/25/20 17:04 12/25/20 19:24 Glucose (Fingerstick) 128 mg/dL (70-99) H 188 mg/dL (70-99) H 188 mg/dL (70-99) H 190 mg/dL (70-99) H Current Medications: Meds: Laboratory Tests Test 12/25/20 07:45 12/25/20 11:39 12/25/20 17:04 12/25/20 19:24 Glucose (Fingerstick) 128 mg/dL 188 mg/dL 188 mg/dL 190 mg/dL Current Medications Medications (Trade) Dose Ordered Sig/Leonides Route PRN Reason Start Time Stop Time Status Last Admin Dose Admin Multi-Ingredient Ointment (Analgesic [place]) 1 swathi PRN QID PRN TP MUSCLE PAIN 11/21/20 21:00 Al Hydroxide/Mg Hydroxide (Mylanta Plus Xs) 15 ml PRN AFTMEALHC PRN PO DYSPEPSIA 11/21/20 21:00 Magnesium Hydroxide (Milk Of Magnesia) 2,400 mg PRN QHS PRN PO 1ST CHOICE CONSTIPATION 11/21/20 21:00 Acetaminophen (Tylenol) 650 mg PRN Q4HRS PRN PO MILD PAIN / TEMP > 100.3'F 11/21/20 21:45 12/06/20 22:17 Amoxicillin/ Clavulanate Potassium (Augmentin 875/ 125mg) 1 tab BID PO 11/22/20 09:00 11/24/20 21:01 DC 11/24/20 20:55 Aspirin (Aspirin Enteric Coated) 81 mg DAILY PO 11/22/20 09:00 12/25/20 09:00 Bisacodyl (Dulcolax Tab) 5 mg PRN DAILY PRN PO 2ND CHOICE CONSTIPATION 11/21/20 21:45 Furosemide (Lasix) 40 mg DAILY PO 11/22/20 09:00 12/25/20 09:00 Acetaminophen/ Hydrocodone Bitart (Lortab 5/325) 1 tab PRN BID PRN PO mod-sev PAIN 11/21/20 21:45 12/08/20 17:03 DC 12/08/20 09:20 Ibuprofen (Motrin) 200 mg PRN Q6HRS PRN PO MILD PAIN / TEMP > 100.3'F 11/21/20 21:45 Cancel Albuterol/ Ipratropium (Duoneb) 3 ml PRN BID PRN NEB SHORTNESS OF BREATH 11/21/20 21:45 Levothyroxine Sodium (Synthroid) 112 mcg DAILY06 PO 11/22/20 06:00 12/25/20 05:21 Lorazepam (Ativan) 0.5 mg TID PO 11/21/20 22:00 12/03/20 18:47 DC 12/03/20 13:59 Zolpidem Tartrate (Ambien) 5 mg HS PO 11/21/20 22:00 11/27/20 18:02 DC 11/26/20 20:44 Betamethasone Dipropion Augmented (Betamethasone Dp Aug 0.05% Cream) 1 swathi PRN BID PRN TP RASH 11/21/20 22:15 Multi-Ingred Cream/Lotion/Oil/ Oint (Hydrocerin) 1 swathi PRN BID PRN TP Dry Hands 11/21/20 22:00 Guaifenesin (Robitussin Dm) 10 ml PRN Q8HRS PRN PO COUGH 11/21/20 22:00 12/23/20 08:40 Insulin Human Lispro (HumaLOG) 20 units TIDWMEALS SQ 11/22/20 08:00 12/25/20 17:00 Insulin Glargine (Lantus Syringe) 30 unit BID SQ 11/21/20 22:00 12/25/20 09:00 Magnesium Chloride (Mag Delay) 64 mg DAILY PO 11/22/20 09:00 12/25/20 09:00 Non-Formulary Medication (Menthol (Biofreeze)) 1 swathi QID PRN TP MUSCLE PAIN 11/21/20 21:45 UNV Pantoprazole Sodium (Protonix) 40 mg DAILY PO 11/22/20 09:00 12/25/20 09:00 Oxybutynin Chloride (Ditropan) 5 mg DAILY PO 11/22/20 09:00 12/25/20 09:00 Polyethylene Glycol (miraLAX) 17 gm DAILY PO 11/22/20 09:00 12/25/20 09:00 Potassium Chloride (Klor-Con) 10 meq DAILY PO 11/22/20 09:00 12/25/20 09:00 Propranolol HCl (Inderal) 40 mg DAILY PO 11/22/20 09:00 12/25/20 09:00 Quetiapine Fumarate (SEROquel) 600 mg HS PO 11/21/20 22:15 12/03/20 18:47 DC 12/02/20 20:08 Saliva Substitute (Biotene Moisturizing Mouth) 2 spray PRN TID PRN PO DRY MOUTH 11/21/20 22:15 Non-Formulary Medication (Semaglutide (Ozempic)) 1 mg QFR SQ 11/23/20 16:00 12/09/20 10:20 DC Pentoxifylline (TRENtal) 400 mg TIDWMEALS PO 11/22/20 08:00 12/25/20 17:44 Vitamin D (Vitamin D3) 2,000 unit DAILY PO 11/22/20 09:00 12/25/20 09:00 Lactobacillus Rhamnosus (Culturelle) 1 cap BID PO 11/22/20 09:00 12/25/20 20:23 Mirtazapine (Remeron) 7.5 mg QHS PO 11/27/20 21:00 12/11/20 17:03 DC 12/10/20 20:08 Divalproex Sodium (Depakote Er) 500 mg QHS PO 11/28/20 21:00 12/01/20 17:12 DC 11/30/20 20:45 Divalproex Sodium (Depakote Er) 1,000 mg QHS PO 12/01/20 21:00 12/21/20 19:55 DC 12/20/20 20:28 Bupropion HCl (Wellbutrin Xl) 150 mg DAILY PO 12/03/20 09:00 12/09/20 16:24 DC 12/09/20 08:14 Quetiapine Fumarate (SEROquel) 200 mg TID PO 12/03/20 21:00 12/06/20 11:47 DC 12/06/20 07:48 Clonazepam (KlonoPIN) 0.5 mg TID PO 12/03/20 21:00 12/25/20 20:24 Trazodone HCl (Desyrel) 100 mg PRN QHS PRN PO INSOMNIA, MRX1 12/04/20 19:15 12/23/20 20:41 Risperidone (RisperDAL) 0.5 mg 0900,1300,1700 PO 12/06/20 13:00 12/07/20 17:12 DC 12/07/20 09:00 Risperidone (RisperDAL) 1.5 mg DAILY PO 12/08/20 09:00 12/07/20 19:50 DC Risperidone (RisperDAL) 1.5 mg DAILY PO 12/07/20 20:00 12/09/20 16:24 DC 12/09/20 08:16 Acetaminophen/ Hydrocodone Bitart (Lortab 5/325) 1 tab PRN TID PRN PO mod-sev PAIN 12/08/20 17:00 12/25/20 15:48 Risperidone (RisperDAL) 2 mg DAILY PO 12/10/20 09:00 12/13/20 12:47 DC 12/13/20 09:29 Mirtazapine (Remeron) 15 mg QHS PO 12/11/20 21:00 12/25/20 20:23 Risperidone (RisperDAL) 3 mg DAILY PO 12/14/20 09:00 12/23/20 07:12 DC 12/22/20 08:31 Risperidone (RisperDAL CONSTA) 25 mg Q2WKS IM 12/14/20 09:00 12/14/20 09:35 Quetiapine Fumarate (SEROquel) 50 mg PRN Q2HR PRN PO ANXIETY/AGITATION, 2ND CHOICE 12/16/20 04:15 12/16/20 04:41 Lorazepam (Ativan) 0.5 mg PRN Q2HR PRN PO ANXIETY/AGITATION, 1ST CHOICE 12/16/20 04:15 12/23/20 17:16 Trazodone HCl (Desyrel) 25 mg 0900,1300,1700 PO 12/18/20 09:00 12/23/20 16:59 DC 12/23/20 12:29 Temazepam (Restoril) 15 mg PRN QHS PRN PO INSOMNIA, MRX1, 1ST CHOICE 12/19/20 18:15 12/22/20 09:00 DC 12/21/20 19:59 Divalproex Sodium (Depakote Sprinkles) 500 mg BID PO 12/21/20 21:00 12/25/20 20:23 Risperidone (RisperDAL) 3 mg DAILY PO 12/23/20 09:00 12/25/20 09:00 Trazodone HCl (Desyrel) 25 mg DAILY PO 12/24/20 09:00 12/25/20 09:00 Trazodone HCl (Desyrel) 50 mg 1300,1700 PO 12/23/20 17:00 12/25/20 17:44 I have reviewed the current psychotropics carefully including drug interactions. Risk benefit ratio favors no change other than as noted in my dictated progress note. Diagnosis: Problems: (1) Schizoaffective disorder, bipolar type (2) Anxiety disorder, unspecified (3) Impulse disorder, unspecified (4) Bipolar disorder, curr episode mixed, severe, with psychotic features RAJIV VELAZQUEZ MD Dec 25, 2020 21:38
[2020-12-26] MEDS: LEVOTHYROXINE 112 MCG TABLET PO SCH (05:45)
[2020-12-26 05:53] VITALS: BP 118/74
--- NOTE | 2020-12-26 07:51 | PDOC ---
Exam Note: Donte Note: This note is a late entry for 12/25/2020 covers elements not covered in my initial note. Subjective: The patient was seen face to face in the evening of 12/25/2020 with Iftikhar COPELAND, discussed and reviewed the chart. The patient slept 7-1/2 hours previous night. The patient has a been resistive to medications but did take them today. Review of Systems: No CV, , pulmonary, eye, ENT system symptoms on review. Mental Status Exam: The patient is reasonably oriented. Speech moderate latency. Often response is monosyllabic. Abstraction is fair. Computation is impaired. Language function is intact. Mood and affect withdrawn. Laboratory Data: Reviewed. Impression: Schizoaffective disorder, bipolar type, mixed with psychotic features. Anxiety disorder unspecified. Impulse control disorder unspecified. Plan: No change from initial note. Assessment: Vital Signs/I&O: Vital Signs Date Time Temp Pulse Resp B/P (MAP) Pulse Ox O2 Delivery O2 Flow Rate FiO2 12/26/20 05:53 97.8 68 16 118/74 (89) 97 12/25/20 18:19 Room Air I & O 12/25/20 12/25/20 12/26/20 15:00 23:00 07:00 Intake Total 720 ml 1140 ml Balance 720 ml 1140 ml Labs: Laboratory Tests Test 12/25/20 11:39 12/25/20 17:04 12/25/20 19:24 12/26/20 07:19 Glucose (Fingerstick) 188 mg/dL (70-99) H 188 mg/dL (70-99) H 190 mg/dL (70-99) H 109 mg/dL (70-99) H Current Medications: Meds: Laboratory Tests Test 12/25/20 11:39 12/25/20 17:04 12/25/20 19:24 12/26/20 07:19 Glucose (Fingerstick) 188 mg/dL 188 mg/dL 190 mg/dL 109 mg/dL Current Medications Medications (Trade) Dose Ordered Sig/Leonides Route PRN Reason Start Time Stop Time Status Last Admin Dose Admin Multi-Ingredient Ointment (Analgesic [place]) 1 swathi PRN QID PRN TP MUSCLE PAIN 11/21/20 21:00 Al Hydroxide/Mg Hydroxide (Mylanta Plus Xs) 15 ml PRN AFTMEALHC PRN PO DYSPEPSIA 11/21/20 21:00 Magnesium Hydroxide (Milk Of Magnesia) 2,400 mg PRN QHS PRN PO 1ST CHOICE CONSTIPATION 11/21/20 21:00 Acetaminophen (Tylenol) 650 mg PRN Q4HRS PRN PO MILD PAIN / TEMP > 100.3'F 11/21/20 21:45 12/06/20 22:17 Amoxicillin/ Clavulanate Potassium (Augmentin 875/ 125mg) 1 tab BID PO 11/22/20 09:00 11/24/20 21:01 DC 11/24/20 20:55 Aspirin (Aspirin Enteric Coated) 81 mg DAILY PO 11/22/20 09:00 12/25/20 09:00 Bisacodyl (Dulcolax Tab) 5 mg PRN DAILY PRN PO 2ND CHOICE CONSTIPATION 11/21/20 21:45 Furosemide (Lasix) 40 mg DAILY PO 11/22/20 09:00 12/25/20 09:00 Acetaminophen/ Hydrocodone Bitart (Lortab 5/325) 1 tab PRN BID PRN PO mod-sev PAIN 11/21/20 21:45 12/08/20 17:03 DC 12/08/20 09:20 Ibuprofen (Motrin) 200 mg PRN Q6HRS PRN PO MILD PAIN / TEMP > 100.3'F 11/21/20 21:45 Cancel Albuterol/ Ipratropium (Duoneb) 3 ml PRN BID PRN NEB SHORTNESS OF BREATH 11/21/20 21:45 Levothyroxine Sodium (Synthroid) 112 mcg DAILY06 PO 11/22/20 06:00 12/26/20 05:45 Lorazepam (Ativan) 0.5 mg TID PO 11/21/20 22:00 12/03/20 18:47 DC 12/03/20 13:59 Zolpidem Tartrate (Ambien) 5 mg HS PO 11/21/20 22:00 11/27/20 18:02 DC 11/26/20 20:44 Betamethasone Dipropion Augmented (Betamethasone Dp Aug 0.05% Cream) 1 swathi PRN BID PRN TP RASH 11/21/20 22:15 Multi-Ingred Cream/Lotion/Oil/ Oint (Hydrocerin) 1 swathi PRN BID PRN TP Dry Hands 11/21/20 22:00 Guaifenesin (Robitussin Dm) 10 ml PRN Q8HRS PRN PO COUGH 11/21/20 22:00 12/23/20 08:40 Insulin Human Lispro (HumaLOG) 20 units TIDWMEALS SQ 11/22/20 08:00 12/25/20 17:00 Insulin Glargine (Lantus Syringe) 30 unit BID SQ 11/21/20 22:00 12/25/20 21:40 Magnesium Chloride (Mag Delay) 64 mg DAILY PO 11/22/20 09:00 12/25/20 09:00 Non-Formulary Medication (Menthol (Biofreeze)) 1 swathi QID PRN TP MUSCLE PAIN 11/21/20 21:45 UNV Pantoprazole Sodium (Protonix) 40 mg DAILY PO 11/22/20 09:00 12/25/20 09:00 Oxybutynin Chloride (Ditropan) 5 mg DAILY PO 11/22/20 09:00 12/25/20 09:00 Polyethylene Glycol (miraLAX) 17 gm DAILY PO 11/22/20 09:00 12/25/20 09:00 Potassium Chloride (Klor-Con) 10 meq DAILY PO 11/22/20 09:00 12/25/20 09:00 Propranolol HCl (Inderal) 40 mg DAILY PO 11/22/20 09:00 12/25/20 09:00 Quetiapine Fumarate (SEROquel) 600 mg HS PO 11/21/20 22:15 12/03/20 18:47 DC 12/02/20 20:08 Saliva Substitute (Biotene Moisturizing Mouth) 2 spray PRN TID PRN PO DRY MOUTH 11/21/20 22:15 Non-Formulary Medication (Semaglutide (Ozempic)) 1 mg QFR SQ 11/23/20 16:00 12/09/20 10:20 DC Pentoxifylline (TRENtal) 400 mg TIDWMEALS PO 11/22/20 08:00 12/25/20 17:44 Vitamin D (Vitamin D3) 2,000 unit DAILY PO 11/22/20 09:00 12/25/20 09:00 Lactobacillus Rhamnosus (Culturelle) 1 cap BID PO 11/22/20 09:00 12/25/20 20:23 Mirtazapine (Remeron) 7.5 mg QHS PO 11/27/20 21:00 12/11/20 17:03 DC 12/10/20 20:08 Divalproex Sodium (Depakote Er) 500 mg QHS PO 11/28/20 21:00 12/01/20 17:12 DC 11/30/20 20:45 Divalproex Sodium (Depakote Er) 1,000 mg QHS PO 12/01/20 21:00 12/21/20 19:55 DC 12/20/20 20:28 Bupropion HCl (Wellbutrin Xl) 150 mg DAILY PO 12/03/20 09:00 12/09/20 16:24 DC 12/09/20 08:14 Quetiapine Fumarate (SEROquel) 200 mg TID PO 12/03/20 21:00 12/06/20 11:47 DC 12/06/20 07:48 Clonazepam (KlonoPIN) 0.5 mg TID PO 12/03/20 21:00 12/25/20 20:24 Trazodone HCl (Desyrel) 100 mg PRN QHS PRN PO INSOMNIA, MRX1 12/04/20 19:15 12/23/20 20:41 Risperidone (RisperDAL) 0.5 mg 0900,1300,1700 PO 12/06/20 13:00 12/07/20 17:12 DC 12/07/20 09:00 Risperidone (RisperDAL) 1.5 mg DAILY PO 12/08/20 09:00 12/07/20 19:50 DC Risperidone (RisperDAL) 1.5 mg DAILY PO 12/07/20 20:00 12/09/20 16:24 DC 12/09/20 08:16 Acetaminophen/ Hydrocodone Bitart (Lortab 5/325) 1 tab PRN TID PRN PO mod-sev PAIN 12/08/20 17:00 12/25/20 21:47 Risperidone (RisperDAL) 2 mg DAILY PO 12/10/20 09:00 12/13/20 12:47 DC 12/13/20 09:29 Mirtazapine (Remeron) 15 mg QHS PO 12/11/20 21:00 12/25/20 20:23 Risperidone (RisperDAL) 3 mg DAILY PO 12/14/20 09:00 12/23/20 07:12 DC 12/22/20 08:31 Risperidone (RisperDAL CONSTA) 25 mg Q2WKS IM 12/14/20 09:00 12/14/20 09:35 Quetiapine Fumarate (SEROquel) 50 mg PRN Q2HR PRN PO ANXIETY/AGITATION, 2ND CHOICE 12/16/20 04:15 12/16/20 04:41 Lorazepam (Ativan) 0.5 mg PRN Q2HR PRN PO ANXIETY/AGITATION, 1ST CHOICE 12/16/20 04:15 12/23/20 17:16 Trazodone HCl (Desyrel) 25 mg 0900,1300,1700 PO 12/18/20 09:00 12/23/20 16:59 DC 12/23/20 12:29 Temazepam (Restoril) 15 mg PRN QHS PRN PO INSOMNIA, MRX1, 1ST CHOICE 12/19/20 18:15 12/22/20 09:00 DC 12/21/20 19:59 Divalproex Sodium (Depakote Sprinkles) 500 mg BID PO 12/21/20 21:00 12/25/20 20:23 Risperidone (RisperDAL) 3 mg DAILY PO 12/23/20 09:00 12/25/20 09:00 Trazodone HCl (Desyrel) 25 mg DAILY PO 12/24/20 09:00 12/25/20 09:00 Trazodone HCl (Desyrel) 50 mg 1300,1700 PO 12/23/20 17:00 12/25/20 17:44 I have reviewed the current psychotropics carefully including drug interactions. Risk benefit ratio favors no change other than as noted in my dictated progress note. Diagnosis: Problems: (1) Schizoaffective disorder, bipolar type (2) Anxiety disorder, unspecified (3) Impulse disorder, unspecified (4) Bipolar disorder, curr episode mixed, severe, with psychotic features RAJIV VELAZQUEZ MD Dec 26, 2020 07:51
[2020-12-26] MEDS: HYDROcodone/APAP 5/325MG 1 TAB TABLET PO PRN (09:27)
[2020-12-26] MEDS: POLYETHYLENE GLYCOL 3350 17 GM PACKET. PO SCH (09:27)
[2020-12-26] MEDS: risperiDONE 1 MG TABLET. PO SCH (09:28)
[2020-12-26] MEDS: MAGNESIUM CHLORIDE ER 64 MG TABLET.ER PO SCH (09:28)
[2020-12-26] MEDS: PENTOXIFYLLINE ER 400 MG TABLET.ER. PO SCH ×3 (09:28→17:53)
[2020-12-26] MEDS: CHOLECALCIFEROL (VITAMIN D3) 1,000 UNIT TABLET PO SCH (09:28)
[2020-12-26] MEDS: LACTOBACILLUS RHAMNOSUS GG 1 CAPSULE. PO SCH ×2 (09:28→21:21)
[2020-12-26] MEDS: DIVALPROEX 125 MG CAP.SPRINK PO SCH ×2 (09:29→21:22)
[2020-12-26] MEDS: FUROSEMIDE 40 MG TABLET PO SCH (09:29)
[2020-12-26] MEDS: PANTOPRAZOLE 40 MG TABLET. PO SCH (09:29)
[2020-12-26] MEDS: ASPIRIN ENTERIC COATED 81 MG TABLET.DR. PO SCH (09:29)
[2020-12-26] MEDS: OXYBUTYNIN CHLORIDE 5 MG TABLET PO SCH (09:29)
[2020-12-26] MEDS: traZODone 50 MG TABLET. PO SCH ×3 (09:30→17:53)
[2020-12-26] MEDS: POTASSIUM CHLORIDE 10 MEQ TABLET.ER. PO SCH (09:31)
[2020-12-26] MEDS: PROPRANOLOL 20 MG TABLET. PO SCH (09:32)
[2020-12-26] MEDS: clonazePAM 0.5 MG TABLET PO SCH ×3 (09:33→21:24)
[2020-12-26] MEDS: INSULIN LISPRO 300 UNITS/3 ML VIAL. SQ SCH ×3 (09:39→17:55)
[2020-12-26] MEDS: INSULIN GLARGINE SYRINGE. SQ SCH ×3 (09:40→22:00)
[2020-12-26 17:00] VITALS: BP 107/59
--- NOTE | 2020-12-26 21:12 | PDOC ---
Exam Note: Donte Note: Please also refer to the separate dictated note~for this date of service dictated separately.~Patient seen individually. Discussed the patient with Nursing staff reviewed the chart.~Reviewed interim history and current functioning. Reviewed vital signs,~Labs/ Radiology~and current medications noted below. Continue current treatment with the changes noted in the dictated addendum note Assessment: Vital Signs/I&O: Vital Signs Date Time Temp Pulse Resp B/P (MAP) Pulse Ox O2 Delivery O2 Flow Rate FiO2 12/26/20 17:00 97.0 68 18 107/59 (75) 98 12/26/20 12:15 Room Air I & O 12/25/20 12/25/20 12/26/20 15:00 23:00 07:00 Intake Total 720 ml 1140 ml Balance 720 ml 1140 ml Labs: Laboratory Tests Test 12/26/20 07:19 12/26/20 11:44 12/26/20 16:53 12/26/20 19:11 Glucose (Fingerstick) 109 mg/dL (70-99) H 206 mg/dL (70-99) H 109 mg/dL (70-99) H 188 mg/dL (70-99) H Current Medications: Meds: Laboratory Tests Test 12/26/20 07:19 12/26/20 11:44 12/26/20 16:53 12/26/20 19:11 Glucose (Fingerstick) 109 mg/dL 206 mg/dL 109 mg/dL 188 mg/dL Current Medications Medications (Trade) Dose Ordered Sig/Leonides Route PRN Reason Start Time Stop Time Status Last Admin Dose Admin Multi-Ingredient Ointment (Analgesic [place]) 1 swathi PRN QID PRN TP MUSCLE PAIN 11/21/20 21:00 Al Hydroxide/Mg Hydroxide (Mylanta Plus Xs) 15 ml PRN AFTMEALHC PRN PO DYSPEPSIA 11/21/20 21:00 Magnesium Hydroxide (Milk Of Magnesia) 2,400 mg PRN QHS PRN PO 1ST CHOICE CONSTIPATION 11/21/20 21:00 Acetaminophen (Tylenol) 650 mg PRN Q4HRS PRN PO MILD PAIN / TEMP > 100.3'F 11/21/20 21:45 12/06/20 22:17 Amoxicillin/ Clavulanate Potassium (Augmentin 875/ 125mg) 1 tab BID PO 11/22/20 09:00 11/24/20 21:01 DC 11/24/20 20:55 Aspirin (Aspirin Enteric Coated) 81 mg DAILY PO 11/22/20 09:00 12/26/20 09:29 Bisacodyl (Dulcolax Tab) 5 mg PRN DAILY PRN PO 2ND CHOICE CONSTIPATION 11/21/20 21:45 Furosemide (Lasix) 40 mg DAILY PO 11/22/20 09:00 12/26/20 09:29 Acetaminophen/ Hydrocodone Bitart (Lortab 5/325) 1 tab PRN BID PRN PO mod-sev PAIN 11/21/20 21:45 12/08/20 17:03 DC 12/08/20 09:20 Ibuprofen (Motrin) 200 mg PRN Q6HRS PRN PO MILD PAIN / TEMP > 100.3'F 11/21/20 21:45 Cancel Albuterol/ Ipratropium (Duoneb) 3 ml PRN BID PRN NEB SHORTNESS OF BREATH 11/21/20 21:45 Levothyroxine Sodium (Synthroid) 112 mcg DAILY06 PO 11/22/20 06:00 12/26/20 05:45 Lorazepam (Ativan) 0.5 mg TID PO 11/21/20 22:00 12/03/20 18:47 DC 12/03/20 13:59 Zolpidem Tartrate (Ambien) 5 mg HS PO 11/21/20 22:00 11/27/20 18:02 DC 11/26/20 20:44 Betamethasone Dipropion Augmented (Betamethasone Dp Aug 0.05% Cream) 1 swathi PRN BID PRN TP RASH 11/21/20 22:15 Multi-Ingred Cream/Lotion/Oil/ Oint (Hydrocerin) 1 swathi PRN BID PRN TP Dry Hands 11/21/20 22:00 Guaifenesin (Robitussin Dm) 10 ml PRN Q8HRS PRN PO COUGH 11/21/20 22:00 12/23/20 08:40 Insulin Human Lispro (HumaLOG) 20 units TIDWMEALS SQ 11/22/20 08:00 12/26/20 17:55 Insulin Glargine (Lantus Syringe) 30 unit BID SQ 11/21/20 22:00 12/26/20 09:40 Magnesium Chloride (Mag Delay) 64 mg DAILY PO 11/22/20 09:00 12/26/20 09:28 Non-Formulary Medication (Menthol (Biofreeze)) 1 swathi QID PRN TP MUSCLE PAIN 11/21/20 21:45 UNV Pantoprazole Sodium (Protonix) 40 mg DAILY PO 11/22/20 09:00 12/26/20 09:29 Oxybutynin Chloride (Ditropan) 5 mg DAILY PO 11/22/20 09:00 12/26/20 09:29 Polyethylene Glycol (miraLAX) 17 gm DAILY PO 11/22/20 09:00 12/26/20 09:27 Potassium Chloride (Klor-Con) 10 meq DAILY PO 11/22/20 09:00 12/26/20 09:31 Propranolol HCl (Inderal) 40 mg DAILY PO 11/22/20 09:00 12/26/20 09:32 Quetiapine Fumarate (SEROquel) 600 mg HS PO 11/21/20 22:15 12/03/20 18:47 DC 12/02/20 20:08 Saliva Substitute (Biotene Moisturizing Mouth) 2 spray PRN TID PRN PO DRY MOUTH 11/21/20 22:15 Non-Formulary Medication (Semaglutide (Ozempic)) 1 mg QFR SQ 11/23/20 16:00 12/09/20 10:20 DC Pentoxifylline (TRENtal) 400 mg TIDWMEALS PO 11/22/20 08:00 12/26/20 17:53 Vitamin D (Vitamin D3) 2,000 unit DAILY PO 11/22/20 09:00 12/26/20 09:28 Lactobacillus Rhamnosus (Culturelle) 1 cap BID PO 11/22/20 09:00 12/26/20 09:28 Mirtazapine (Remeron) 7.5 mg QHS PO 11/27/20 21:00 12/11/20 17:03 DC 12/10/20 20:08 Divalproex Sodium (Depakote Er) 500 mg QHS PO 11/28/20 21:00 12/01/20 17:12 DC 11/30/20 20:45 Divalproex Sodium (Depakote Er) 1,000 mg QHS PO 12/01/20 21:00 12/21/20 19:55 DC 12/20/20 20:28 Bupropion HCl (Wellbutrin Xl) 150 mg DAILY PO 12/03/20 09:00 12/09/20 16:24 DC 12/09/20 08:14 Quetiapine Fumarate (SEROquel) 200 mg TID PO 12/03/20 21:00 12/06/20 11:47 DC 12/06/20 07:48 Clonazepam (KlonoPIN) 0.5 mg TID PO 12/03/20 21:00 12/26/20 13:48 Trazodone HCl (Desyrel) 100 mg PRN QHS PRN PO INSOMNIA, MRX1 12/04/20 19:15 12/23/20 20:41 Risperidone (RisperDAL) 0.5 mg 0900,1300,1700 PO 12/06/20 13:00 12/07/20 17:12 DC 12/07/20 09:00 Risperidone (RisperDAL) 1.5 mg DAILY PO 12/08/20 09:00 12/07/20 19:50 DC Risperidone (RisperDAL) 1.5 mg DAILY PO 12/07/20 20:00 12/09/20 16:24 DC 12/09/20 08:16 Acetaminophen/ Hydrocodone Bitart (Lortab 5/325) 1 tab PRN TID PRN PO mod-sev PAIN 12/08/20 17:00 12/26/20 09:27 Risperidone (RisperDAL) 2 mg DAILY PO 12/10/20 09:00 12/13/20 12:47 DC 12/13/20 09:29 Mirtazapine (Remeron) 15 mg QHS PO 12/11/20 21:00 12/25/20 20:23 Risperidone (RisperDAL) 3 mg DAILY PO 12/14/20 09:00 12/23/20 07:12 DC 12/22/20 08:31 Risperidone (RisperDAL CONSTA) 25 mg Q2WKS IM 12/14/20 09:00 12/14/20 09:35 Quetiapine Fumarate (SEROquel) 50 mg PRN Q2HR PRN PO ANXIETY/AGITATION, 2ND CHOICE 12/16/20 04:15 12/16/20 04:41 Lorazepam (Ativan) 0.5 mg PRN Q2HR PRN PO ANXIETY/AGITATION, 1ST CHOICE 12/16/20 04:15 12/23/20 17:16 Trazodone HCl (Desyrel) 25 mg 0900,1300,1700 PO 12/18/20 09:00 12/23/20 16:59 DC 12/23/20 12:29 Temazepam (Restoril) 15 mg PRN QHS PRN PO INSOMNIA, MRX1, 1ST CHOICE 12/19/20 18:15 12/22/20 09:00 DC 12/21/20 19:59 Divalproex Sodium (Depakote Sprinkles) 500 mg BID PO 12/21/20 21:00 12/26/20 09:29 Risperidone (RisperDAL) 3 mg DAILY PO 12/23/20 09:00 12/26/20 09:28 Trazodone HCl (Desyrel) 25 mg DAILY PO 12/24/20 09:00 12/26/20 09:30 Trazodone HCl (Desyrel) 50 mg 1300,1700 PO 12/23/20 17:00 12/26/20 17:53 I have reviewed the current psychotropics carefully including drug interactions. Risk benefit ratio favors no change other than as noted in my dictated progress note. Diagnosis: Problems: (1) Mild cognitive impairment (2) Schizoaffective disorder, bipolar type (3) Anxiety disorder, unspecified (4) Impulse disorder, unspecified (5) Bipolar disorder, curr episode mixed, severe, with psychotic features RAJIV VELAZQUEZ MD Dec 26, 2020 21:12
[2020-12-26] MEDS: MIRTAZAPINE 15 MG TABLET PO SCH (21:22)
[2020-12-27] MEDS: LEVOTHYROXINE 112 MCG TABLET PO SCH (05:50)
[2020-12-27 06:21] VITALS: BP 141/85
--- NOTE | 2020-12-27 08:12 | PDOC ---
Exam Note: Donte Note: This note is a late entry for 12/26/2020 covers elements not covered in my initial note. Subjective: The patient was seen face to face in the evening of 12/26/2020 with Iftikhar COPELAND, discussed and reviewed the chart. The patient slept 3-1/2 hours previous night. Overall she remains somewhat withdrawn, listening to music on tiffanie, remains intermittently paranoid. Review of Systems: No CV, , pulmonary, eye, ENT system symptoms on review. Mental Status Exam: The patient is oriented to herself and situation. Speech has some latency. Often response is monosyllabic. Abstraction is fair. Computation is impaired. Language function is intact. Mood and affect withdrawn. Laboratory Data: Reviewed. Impression: Schizoaffective disorder, bipolar type, mixed with psychotic features. Anxiety disorder unspecified. Impulse control disorder unspecified. Plan: No change from initial note. Assessment: Vital Signs/I&O: Vital Signs Date Time Temp Pulse Resp B/P (MAP) Pulse Ox O2 Delivery O2 Flow Rate FiO2 12/27/20 06:21 97.0 69 16 141/85 (103) 98 12/26/20 12:15 Room Air I & O 12/26/20 12/26/20 12/27/20 15:00 23:00 07:00 Intake Total 360 ml 1080 ml Balance 360 ml 1080 ml Labs: Laboratory Tests Test 12/26/20 11:44 12/26/20 16:53 12/26/20 19:11 12/27/20 07:38 Glucose (Fingerstick) 206 mg/dL (70-99) H 109 mg/dL (70-99) H 188 mg/dL (70-99) H 123 mg/dL (70-99) H Current Medications: Meds: Laboratory Tests Test 12/26/20 11:44 12/26/20 16:53 12/26/20 19:11 12/27/20 07:38 Glucose (Fingerstick) 206 mg/dL 109 mg/dL 188 mg/dL 123 mg/dL Current Medications Medications (Trade) Dose Ordered Sig/Leonides Route PRN Reason Start Time Stop Time Status Last Admin Dose Admin Multi-Ingredient Ointment (Analgesic [place]) 1 swathi PRN QID PRN TP MUSCLE PAIN 11/21/20 21:00 Al Hydroxide/Mg Hydroxide (Mylanta Plus Xs) 15 ml PRN AFTMEALHC PRN PO DYSPEPSIA 11/21/20 21:00 Magnesium Hydroxide (Milk Of Magnesia) 2,400 mg PRN QHS PRN PO 1ST CHOICE CONSTIPATION 11/21/20 21:00 Acetaminophen (Tylenol) 650 mg PRN Q4HRS PRN PO MILD PAIN / TEMP > 100.3'F 11/21/20 21:45 12/06/20 22:17 Amoxicillin/ Clavulanate Potassium (Augmentin 875/ 125mg) 1 tab BID PO 11/22/20 09:00 11/24/20 21:01 DC 11/24/20 20:55 Aspirin (Aspirin Enteric Coated) 81 mg DAILY PO 11/22/20 09:00 12/26/20 09:29 Bisacodyl (Dulcolax Tab) 5 mg PRN DAILY PRN PO 2ND CHOICE CONSTIPATION 11/21/20 21:45 Furosemide (Lasix) 40 mg DAILY PO 11/22/20 09:00 12/26/20 09:29 Acetaminophen/ Hydrocodone Bitart (Lortab 5/325) 1 tab PRN BID PRN PO mod-sev PAIN 11/21/20 21:45 12/08/20 17:03 DC 12/08/20 09:20 Ibuprofen (Motrin) 200 mg PRN Q6HRS PRN PO MILD PAIN / TEMP > 100.3'F 11/21/20 21:45 Cancel Albuterol/ Ipratropium (Duoneb) 3 ml PRN BID PRN NEB SHORTNESS OF BREATH 11/21/20 21:45 Levothyroxine Sodium (Synthroid) 112 mcg DAILY06 PO 11/22/20 06:00 12/27/20 05:50 Lorazepam (Ativan) 0.5 mg TID PO 11/21/20 22:00 12/03/20 18:47 DC 12/03/20 13:59 Zolpidem Tartrate (Ambien) 5 mg HS PO 11/21/20 22:00 11/27/20 18:02 DC 11/26/20 20:44 Betamethasone Dipropion Augmented (Betamethasone Dp Aug 0.05% Cream) 1 swathi PRN BID PRN TP RASH 11/21/20 22:15 Multi-Ingred Cream/Lotion/Oil/ Oint (Hydrocerin) 1 swathi PRN BID PRN TP Dry Hands 11/21/20 22:00 Guaifenesin (Robitussin Dm) 10 ml PRN Q8HRS PRN PO COUGH 11/21/20 22:00 12/23/20 08:40 Insulin Human Lispro (HumaLOG) 20 units TIDWMEALS SQ 11/22/20 08:00 12/26/20 17:55 Insulin Glargine (Lantus Syringe) 30 unit BID SQ 11/21/20 22:00 12/26/20 09:40 Magnesium Chloride (Mag Delay) 64 mg DAILY PO 11/22/20 09:00 12/26/20 09:28 Non-Formulary Medication (Menthol (Biofreeze)) 1 swathi QID PRN TP MUSCLE PAIN 11/21/20 21:45 UNV Pantoprazole Sodium (Protonix) 40 mg DAILY PO 11/22/20 09:00 12/26/20 09:29 Oxybutynin Chloride (Ditropan) 5 mg DAILY PO 11/22/20 09:00 12/26/20 09:29 Polyethylene Glycol (miraLAX) 17 gm DAILY PO 11/22/20 09:00 12/26/20 09:27 Potassium Chloride (Klor-Con) 10 meq DAILY PO 11/22/20 09:00 12/26/20 09:31 Propranolol HCl (Inderal) 40 mg DAILY PO 11/22/20 09:00 12/26/20 09:32 Quetiapine Fumarate (SEROquel) 600 mg HS PO 11/21/20 22:15 12/03/20 18:47 DC 12/02/20 20:08 Saliva Substitute (Biotene Moisturizing Mouth) 2 spray PRN TID PRN PO DRY MOUTH 11/21/20 22:15 Non-Formulary Medication (Semaglutide (Ozempic)) 1 mg QFR SQ 11/23/20 16:00 12/09/20 10:20 DC Pentoxifylline (TRENtal) 400 mg TIDWMEALS PO 11/22/20 08:00 12/26/20 17:53 Vitamin D (Vitamin D3) 2,000 unit DAILY PO 11/22/20 09:00 12/26/20 09:28 Lactobacillus Rhamnosus (Culturelle) 1 cap BID PO 11/22/20 09:00 12/26/20 21:21 Mirtazapine (Remeron) 7.5 mg QHS PO 11/27/20 21:00 12/11/20 17:03 DC 12/10/20 20:08 Divalproex Sodium (Depakote Er) 500 mg QHS PO 11/28/20 21:00 12/01/20 17:12 DC 11/30/20 20:45 Divalproex Sodium (Depakote Er) 1,000 mg QHS PO 12/01/20 21:00 12/21/20 19:55 DC 12/20/20 20:28 Bupropion HCl (Wellbutrin Xl) 150 mg DAILY PO 12/03/20 09:00 12/09/20 16:24 DC 12/09/20 08:14 Quetiapine Fumarate (SEROquel) 200 mg TID PO 12/03/20 21:00 12/06/20 11:47 DC 12/06/20 07:48 Clonazepam (KlonoPIN) 0.5 mg TID PO 12/03/20 21:00 12/26/20 21:24 Trazodone HCl (Desyrel) 100 mg PRN QHS PRN PO INSOMNIA, MRX1 12/04/20 19:15 12/23/20 20:41 Risperidone (RisperDAL) 0.5 mg 0900,1300,1700 PO 12/06/20 13:00 12/07/20 17:12 DC 12/07/20 09:00 Risperidone (RisperDAL) 1.5 mg DAILY PO 12/08/20 09:00 12/07/20 19:50 DC Risperidone (RisperDAL) 1.5 mg DAILY PO 12/07/20 20:00 12/09/20 16:24 DC 12/09/20 08:16 Acetaminophen/ Hydrocodone Bitart (Lortab 5/325) 1 tab PRN TID PRN PO mod-sev PAIN 12/08/20 17:00 12/26/20 09:27 Risperidone (RisperDAL) 2 mg DAILY PO 12/10/20 09:00 12/13/20 12:47 DC 12/13/20 09:29 Mirtazapine (Remeron) 15 mg QHS PO 12/11/20 21:00 12/26/20 21:22 Risperidone (RisperDAL) 3 mg DAILY PO 12/14/20 09:00 12/23/20 07:12 DC 12/22/20 08:31 Risperidone (RisperDAL CONSTA) 25 mg Q2WKS IM 12/14/20 09:00 12/14/20 09:35 Quetiapine Fumarate (SEROquel) 50 mg PRN Q2HR PRN PO ANXIETY/AGITATION, 2ND CHOICE 12/16/20 04:15 12/16/20 04:41 Lorazepam (Ativan) 0.5 mg PRN Q2HR PRN PO ANXIETY/AGITATION, 1ST CHOICE 12/16/20 04:15 12/23/20 17:16 Trazodone HCl (Desyrel) 25 mg 0900,1300,1700 PO 12/18/20 09:00 12/23/20 16:59 DC 12/23/20 12:29 Temazepam (Restoril) 15 mg PRN QHS PRN PO INSOMNIA, MRX1, 1ST CHOICE 12/19/20 18:15 12/22/20 09:00 DC 12/21/20 19:59 Divalproex Sodium (Depakote Sprinkles) 500 mg BID PO 12/21/20 21:00 12/26/20 21:22 Risperidone (RisperDAL) 3 mg DAILY PO 12/23/20 09:00 12/26/20 09:28 Trazodone HCl (Desyrel) 25 mg DAILY PO 12/24/20 09:00 12/26/20 09:30 Trazodone HCl (Desyrel) 50 mg 1300,1700 PO 12/23/20 17:00 12/26/20 17:53 I have reviewed the current psychotropics carefully including drug interactions. Risk benefit ratio favors no change other than as noted in my dictated progress note. Diagnosis: Problems: (1) Mild cognitive impairment (2) Schizoaffective disorder, bipolar type (3) Anxiety disorder, unspecified (4) Impulse disorder, unspecified (5) Bipolar disorder, curr episode mixed, severe, with psychotic features RAJIV VELAZQUEZ MD Dec 27, 2020 08:12
[2020-12-27] MEDS: CHOLECALCIFEROL (VITAMIN D3) 1,000 UNIT TABLET PO SCH (09:29)
[2020-12-27] MEDS: DIVALPROEX 125 MG CAP.SPRINK PO SCH ×2 (09:29→20:57)
[2020-12-27] MEDS: MAGNESIUM CHLORIDE ER 64 MG TABLET.ER PO SCH (09:29)
[2020-12-27] MEDS: ASPIRIN ENTERIC COATED 81 MG TABLET.DR. PO SCH (09:29)
[2020-12-27] MEDS: PANTOPRAZOLE 40 MG TABLET. PO SCH (09:29)
[2020-12-27] MEDS: LACTOBACILLUS RHAMNOSUS GG 1 CAPSULE. PO SCH ×2 (09:29→20:57)
[2020-12-27] MEDS: risperiDONE 1 MG TABLET. PO SCH (09:29)
[2020-12-27] MEDS: OXYBUTYNIN CHLORIDE 5 MG TABLET PO SCH (09:29)
[2020-12-27] MEDS: PENTOXIFYLLINE ER 400 MG TABLET.ER. PO SCH ×3 (09:29→17:24)
[2020-12-27] MEDS: POTASSIUM CHLORIDE 10 MEQ TABLET.ER. PO SCH (09:30)
[2020-12-27] MEDS: traZODone 50 MG TABLET. PO SCH ×3 (09:30→17:24)
[2020-12-27] MEDS: FUROSEMIDE 40 MG TABLET PO SCH (09:30)
[2020-12-27] MEDS: PROPRANOLOL 20 MG TABLET. PO SCH (09:31)
[2020-12-27] MEDS: POLYETHYLENE GLYCOL 3350 17 GM PACKET. PO SCH (09:31)
[2020-12-27] MEDS: INSULIN LISPRO 300 UNITS/3 ML VIAL. SQ SCH ×3 (09:45→17:26)
[2020-12-27] MEDS: INSULIN GLARGINE SYRINGE. SQ SCH ×2 (10:30→20:59)
[2020-12-27] MEDS: clonazePAM 0.5 MG TABLET PO SCH ×3 (10:39→20:57)
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
[2020-12-27 16:28] VITALS: BP 119/69
[2020-12-27] MEDS: MIRTAZAPINE 15 MG TABLET PO SCH (20:57)
--- NOTE | 2020-12-27 21:11 | PDOC ---
Exam Note: Donte Note: Please also refer to the separate dictated note~for this date of service dictated separately.~Patient seen individually. Discussed the patient with Nursing staff reviewed the chart.~Reviewed interim history and current functioning. Reviewed vital signs,~Labs/ Radiology~and current medications noted below. Continue current treatment with the changes noted in the dictated addendum note Assessment: Vital Signs/I&O: Vital Signs Date Time Temp Pulse Resp B/P (MAP) Pulse Ox O2 Delivery O2 Flow Rate FiO2 12/27/20 16:28 97.9 70 16 119/69 (86) 12/27/20 06:21 98 12/26/20 12:15 Room Air I & O 12/26/20 12/26/20 12/27/20 15:00 23:00 07:00 Intake Total 360 ml 1080 ml Balance 360 ml 1080 ml Labs: Laboratory Tests Test 12/27/20 07:38 12/27/20 11:53 12/27/20 17:01 12/27/20 19:42 Glucose (Fingerstick) 123 mg/dL (70-99) H 344 mg/dL (70-99) H 238 mg/dL (70-99) H 210 mg/dL (70-99) H Current Medications: Meds: Laboratory Tests Test 12/27/20 07:38 12/27/20 11:53 12/27/20 17:01 12/27/20 19:42 Glucose (Fingerstick) 123 mg/dL 344 mg/dL 238 mg/dL 210 mg/dL Current Medications Medications (Trade) Dose Ordered Sig/Leonides Route PRN Reason Start Time Stop Time Status Last Admin Dose Admin Multi-Ingredient Ointment (Analgesic [place]) 1 swathi PRN QID PRN TP MUSCLE PAIN 11/21/20 21:00 Al Hydroxide/Mg Hydroxide (Mylanta Plus Xs) 15 ml PRN AFTMEALHC PRN PO DYSPEPSIA 11/21/20 21:00 Magnesium Hydroxide (Milk Of Magnesia) 2,400 mg PRN QHS PRN PO 1ST CHOICE CONSTIPATION 11/21/20 21:00 Acetaminophen (Tylenol) 650 mg PRN Q4HRS PRN PO MILD PAIN / TEMP > 100.3'F 11/21/20 21:45 12/06/20 22:17 Amoxicillin/ Clavulanate Potassium (Augmentin 875/ 125mg) 1 tab BID PO 11/22/20 09:00 11/24/20 21:01 DC 11/24/20 20:55 Aspirin (Aspirin Enteric Coated) 81 mg DAILY PO 11/22/20 09:00 12/27/20 09:29 Bisacodyl (Dulcolax Tab) 5 mg PRN DAILY PRN PO 2ND CHOICE CONSTIPATION 11/21/20 21:45 Furosemide (Lasix) 40 mg DAILY PO 11/22/20 09:00 12/27/20 09:30 Acetaminophen/ Hydrocodone Bitart (Lortab 5/325) 1 tab PRN BID PRN PO mod-sev PAIN 11/21/20 21:45 12/08/20 17:03 DC 12/08/20 09:20 Ibuprofen (Motrin) 200 mg PRN Q6HRS PRN PO MILD PAIN / TEMP > 100.3'F 11/21/20 21:45 Cancel Albuterol/ Ipratropium (Duoneb) 3 ml PRN BID PRN NEB SHORTNESS OF BREATH 11/21/20 21:45 Levothyroxine Sodium (Synthroid) 112 mcg DAILY06 PO 11/22/20 06:00 12/27/20 05:50 Lorazepam (Ativan) 0.5 mg TID PO 11/21/20 22:00 12/03/20 18:47 DC 12/03/20 13:59 Zolpidem Tartrate (Ambien) 5 mg HS PO 11/21/20 22:00 11/27/20 18:02 DC 11/26/20 20:44 Betamethasone Dipropion Augmented (Betamethasone Dp Aug 0.05% Cream) 1 swathi PRN BID PRN TP RASH 11/21/20 22:15 Multi-Ingred Cream/Lotion/Oil/ Oint (Hydrocerin) 1 swathi PRN BID PRN TP Dry Hands 11/21/20 22:00 Guaifenesin (Robitussin Dm) 10 ml PRN Q8HRS PRN PO COUGH 11/21/20 22:00 12/23/20 08:40 Insulin Human Lispro (HumaLOG) 20 units TIDWMEALS SQ 11/22/20 08:00 12/27/20 17:26 Insulin Glargine (Lantus Syringe) 30 unit BID SQ 11/21/20 22:00 12/27/20 20:59 Magnesium Chloride (Mag Delay) 64 mg DAILY PO 11/22/20 09:00 12/27/20 09:29 Non-Formulary Medication (Menthol (Biofreeze)) 1 swathi QID PRN TP MUSCLE PAIN 11/21/20 21:45 UNV Pantoprazole Sodium (Protonix) 40 mg DAILY PO 11/22/20 09:00 12/27/20 09:29 Oxybutynin Chloride (Ditropan) 5 mg DAILY PO 11/22/20 09:00 12/27/20 09:29 Polyethylene Glycol (miraLAX) 17 gm DAILY PO 11/22/20 09:00 12/27/20 09:31 Potassium Chloride (Klor-Con) 10 meq DAILY PO 11/22/20 09:00 12/27/20 09:30 Propranolol HCl (Inderal) 40 mg DAILY PO 11/22/20 09:00 12/27/20 09:31 Quetiapine Fumarate (SEROquel) 600 mg HS PO 11/21/20 22:15 12/03/20 18:47 DC 12/02/20 20:08 Saliva Substitute (Biotene Moisturizing Mouth) 2 spray PRN TID PRN PO DRY MOUTH 11/21/20 22:15 Non-Formulary Medication (Semaglutide (Ozempic)) 1 mg QFR SQ 11/23/20 16:00 12/09/20 10:20 DC Pentoxifylline (TRENtal) 400 mg TIDWMEALS PO 11/22/20 08:00 12/27/20 17:24 Vitamin D (Vitamin D3) 2,000 unit DAILY PO 11/22/20 09:00 12/27/20 09:29 Lactobacillus Rhamnosus (Culturelle) 1 cap BID PO 11/22/20 09:00 12/27/20 20:57 Mirtazapine (Remeron) 7.5 mg QHS PO 11/27/20 21:00 12/11/20 17:03 DC 12/10/20 20:08 Divalproex Sodium (Depakote Er) 500 mg QHS PO 11/28/20 21:00 12/01/20 17:12 DC 11/30/20 20:45 Divalproex Sodium (Depakote Er) 1,000 mg QHS PO 12/01/20 21:00 12/21/20 19:55 DC 12/20/20 20:28 Bupropion HCl (Wellbutrin Xl) 150 mg DAILY PO 12/03/20 09:00 12/09/20 16:24 DC 12/09/20 08:14 Quetiapine Fumarate (SEROquel) 200 mg TID PO 12/03/20 21:00 12/06/20 11:47 DC 12/06/20 07:48 Clonazepam (KlonoPIN) 0.5 mg TID PO 12/03/20 21:00 12/27/20 20:57 Trazodone HCl (Desyrel) 100 mg PRN QHS PRN PO INSOMNIA, MRX1 12/04/20 19:15 12/23/20 20:41 Risperidone (RisperDAL) 0.5 mg 0900,1300,1700 PO 12/06/20 13:00 12/07/20 17:12 DC 12/07/20 09:00 Risperidone (RisperDAL) 1.5 mg DAILY PO 12/08/20 09:00 12/07/20 19:50 DC Risperidone (RisperDAL) 1.5 mg DAILY PO 12/07/20 20:00 12/09/20 16:24 DC 12/09/20 08:16 Acetaminophen/ Hydrocodone Bitart (Lortab 5/325) 1 tab PRN TID PRN PO mod-sev PAIN 12/08/20 17:00 12/26/20 09:27 Risperidone (RisperDAL) 2 mg DAILY PO 12/10/20 09:00 12/13/20 12:47 DC 12/13/20 09:29 Mirtazapine (Remeron) 15 mg QHS PO 12/11/20 21:00 12/27/20 20:57 Risperidone (RisperDAL) 3 mg DAILY PO 12/14/20 09:00 12/23/20 07:12 DC 12/22/20 08:31 Risperidone (RisperDAL CONSTA) 25 mg Q2WKS IM 12/14/20 09:00 12/14/20 09:35 Quetiapine Fumarate (SEROquel) 50 mg PRN Q2HR PRN PO ANXIETY/AGITATION, 2ND CHOICE 12/16/20 04:15 12/16/20 04:41 Lorazepam (Ativan) 0.5 mg PRN Q2HR PRN PO ANXIETY/AGITATION, 1ST CHOICE 12/16/20 04:15 12/23/20 17:16 Trazodone HCl (Desyrel) 25 mg 0900,1300,1700 PO 12/18/20 09:00 12/23/20 16:59 DC 12/23/20 12:29 Temazepam (Restoril) 15 mg PRN QHS PRN PO INSOMNIA, MRX1, 1ST CHOICE 12/19/20 18:15 12/22/20 09:00 DC 12/21/20 19:59 Divalproex Sodium (Depakote Sprinkles) 500 mg BID PO 12/21/20 21:00 12/27/20 20:57 Risperidone (RisperDAL) 3 mg DAILY PO 12/23/20 09:00 12/27/20 09:29 Trazodone HCl (Desyrel) 25 mg DAILY PO 12/24/20 09:00 12/27/20 09:30 Trazodone HCl (Desyrel) 50 mg 1300,1700 PO 12/23/20 17:00 12/27/20 17:24 I have reviewed the current psychotropics carefully including drug interactions. Risk benefit ratio favors no change other than as noted in my dictated progress note. Diagnosis: Problems: (1) Mild cognitive impairment (2) Schizoaffective disorder, bipolar type (3) Anxiety disorder, unspecified (4) Impulse disorder, unspecified (5) Bipolar disorder, curr episode mixed, severe, with psychotic features RAJIV VELAZQUEZ MD Dec 27, 2020 21:11
[2020-12-28] MEDS: LEVOTHYROXINE 112 MCG TABLET PO SCH (05:07)
[2020-12-28 05:47] VITALS: BP 127/76
--- NOTE | 2020-12-28 08:31 | PDOC ---
Exam Note: Donte Note: This note is a late entry for 12/27/2020 covers elements not covered in my initial note. Subjective: The patient was seen face to face in the morning of 12/27/2020 for a treatment team meeting with Reyna Mccoy, Cande Serrato and Marixa (social security benefits interviewer), Yvonne Chen, activity therapy and Iftikhar COPELAND, discussed and reviewed the chart. The patient slept 5 hours previous night. Her appetite is 100%. Blood sugars are unremarkable. She often refuses insulin, otherwise, pleasant. Review of Systems: Positive for tiredness. No CV, , pulmonary, eye, ENT system symptoms on review. Mental Status Exam: The patient is oriented to herself and situation. Speech moderate latency. Often response is monosyllabic. Abstraction is fair. Computation is impaired. Language function is intact. Mood and affect withdrawn, less paranoid. Laboratory Data: Reviewed. Impression: Schizoaffective disorder, bipolar type, mixed with psychotic features. Anxiety disorder unspecified. Impulse control disorder unspecified. Plan: No change from initial note. Assessment: Vital Signs/I&O: Vital Signs Date Time Temp Pulse Resp B/P (MAP) Pulse Ox O2 Delivery O2 Flow Rate FiO2 12/28/20 05:47 97.8 71 16 127/76 (93) 99 Room Air I & O 12/27/20 12/27/20 12/28/20 14:59 22:59 06:59 Intake Total 240 ml 360 ml 120 ml Balance 240 ml 360 ml 120 ml Labs: Laboratory Tests Test 12/27/20 11:53 12/27/20 17:01 12/27/20 19:42 12/28/20 07:20 Glucose (Fingerstick) 344 mg/dL (70-99) H 238 mg/dL (70-99) H 210 mg/dL (70-99) H 142 mg/dL (70-99) H Current Medications: Meds: Laboratory Tests Test 12/27/20 11:53 12/27/20 17:01 12/27/20 19:42 12/28/20 07:20 Glucose (Fingerstick) 344 mg/dL 238 mg/dL 210 mg/dL 142 mg/dL Current Medications Medications (Trade) Dose Ordered Sig/Leonides Route PRN Reason Start Time Stop Time Status Last Admin Dose Admin Multi-Ingredient Ointment (Analgesic [place]) 1 swathi PRN QID PRN TP MUSCLE PAIN 11/21/20 21:00 Al Hydroxide/Mg Hydroxide (Mylanta Plus Xs) 15 ml PRN AFTMEALHC PRN PO DYSPEPSIA 11/21/20 21:00 Magnesium Hydroxide (Milk Of Magnesia) 2,400 mg PRN QHS PRN PO 1ST CHOICE CONSTIPATION 11/21/20 21:00 Acetaminophen (Tylenol) 650 mg PRN Q4HRS PRN PO MILD PAIN / TEMP > 100.3'F 11/21/20 21:45 12/06/20 22:17 Amoxicillin/ Clavulanate Potassium (Augmentin 875/ 125mg) 1 tab BID PO 11/22/20 09:00 11/24/20 21:01 DC 11/24/20 20:55 Aspirin (Aspirin Enteric Coated) 81 mg DAILY PO 11/22/20 09:00 12/27/20 09:29 Bisacodyl (Dulcolax Tab) 5 mg PRN DAILY PRN PO 2ND CHOICE CONSTIPATION 11/21/20 21:45 Furosemide (Lasix) 40 mg DAILY PO 11/22/20 09:00 12/27/20 09:30 Acetaminophen/ Hydrocodone Bitart (Lortab 5/325) 1 tab PRN BID PRN PO mod-sev PAIN 11/21/20 21:45 12/08/20 17:03 DC 12/08/20 09:20 Ibuprofen (Motrin) 200 mg PRN Q6HRS PRN PO MILD PAIN / TEMP > 100.3'F 11/21/20 21:45 Cancel Albuterol/ Ipratropium (Duoneb) 3 ml PRN BID PRN NEB SHORTNESS OF BREATH 11/21/20 21:45 Levothyroxine Sodium (Synthroid) 112 mcg DAILY06 PO 11/22/20 06:00 12/28/20 05:07 Lorazepam (Ativan) 0.5 mg TID PO 11/21/20 22:00 12/03/20 18:47 DC 12/03/20 13:59 Zolpidem Tartrate (Ambien) 5 mg HS PO 11/21/20 22:00 11/27/20 18:02 DC 11/26/20 20:44 Betamethasone Dipropion Augmented (Betamethasone Dp Aug 0.05% Cream) 1 swathi PRN BID PRN TP RASH 11/21/20 22:15 Multi-Ingred Cream/Lotion/Oil/ Oint (Hydrocerin) 1 swathi PRN BID PRN TP Dry Hands 11/21/20 22:00 Guaifenesin (Robitussin Dm) 10 ml PRN Q8HRS PRN PO COUGH 11/21/20 22:00 12/23/20 08:40 Insulin Human Lispro (HumaLOG) 20 units TIDWMEALS SQ 11/22/20 08:00 12/27/20 17:26 Insulin Glargine (Lantus Syringe) 30 unit BID SQ 11/21/20 22:00 12/27/20 20:59 Magnesium Chloride (Mag Delay) 64 mg DAILY PO 11/22/20 09:00 12/27/20 09:29 Non-Formulary Medication (Menthol (Biofreeze)) 1 swathi QID PRN TP MUSCLE PAIN 11/21/20 21:45 UNV Pantoprazole Sodium (Protonix) 40 mg DAILY PO 11/22/20 09:00 12/27/20 09:29 Oxybutynin Chloride (Ditropan) 5 mg DAILY PO 11/22/20 09:00 12/27/20 09:29 Polyethylene Glycol (miraLAX) 17 gm DAILY PO 11/22/20 09:00 12/27/20 09:31 Potassium Chloride (Klor-Con) 10 meq DAILY PO 11/22/20 09:00 12/27/20 09:30 Propranolol HCl (Inderal) 40 mg DAILY PO 11/22/20 09:00 12/27/20 09:31 Quetiapine Fumarate (SEROquel) 600 mg HS PO 11/21/20 22:15 12/03/20 18:47 DC 12/02/20 20:08 Saliva Substitute (Biotene Moisturizing Mouth) 2 spray PRN TID PRN PO DRY MOUTH 11/21/20 22:15 Non-Formulary Medication (Semaglutide (Ozempic)) 1 mg QFR SQ 11/23/20 16:00 12/09/20 10:20 DC Pentoxifylline (TRENtal) 400 mg TIDWMEALS PO 11/22/20 08:00 12/27/20 17:24 Vitamin D (Vitamin D3) 2,000 unit DAILY PO 11/22/20 09:00 12/27/20 09:29 Lactobacillus Rhamnosus (Culturelle) 1 cap BID PO 11/22/20 09:00 12/27/20 20:57 Mirtazapine (Remeron) 7.5 mg QHS PO 11/27/20 21:00 12/11/20 17:03 DC 12/10/20 20:08 Divalproex Sodium (Depakote Er) 500 mg QHS PO 11/28/20 21:00 12/01/20 17:12 DC 11/30/20 20:45 Divalproex Sodium (Depakote Er) 1,000 mg QHS PO 12/01/20 21:00 12/21/20 19:55 DC 12/20/20 20:28 Bupropion HCl (Wellbutrin Xl) 150 mg DAILY PO 12/03/20 09:00 12/09/20 16:24 DC 12/09/20 08:14 Quetiapine Fumarate (SEROquel) 200 mg TID PO 12/03/20 21:00 12/06/20 11:47 DC 12/06/20 07:48 Clonazepam (KlonoPIN) 0.5 mg TID PO 12/03/20 21:00 12/27/20 20:57 Trazodone HCl (Desyrel) 100 mg PRN QHS PRN PO INSOMNIA, MRX1 12/04/20 19:15 12/23/20 20:41 Risperidone (RisperDAL) 0.5 mg 0900,1300,1700 PO 12/06/20 13:00 12/07/20 17:12 DC 12/07/20 09:00 Risperidone (RisperDAL) 1.5 mg DAILY PO 12/08/20 09:00 12/07/20 19:50 DC Risperidone (RisperDAL) 1.5 mg DAILY PO 12/07/20 20:00 12/09/20 16:24 DC 12/09/20 08:16 Acetaminophen/ Hydrocodone Bitart (Lortab 5/325) 1 tab PRN TID PRN PO mod-sev PAIN 12/08/20 17:00 12/26/20 09:27 Risperidone (RisperDAL) 2 mg DAILY PO 12/10/20 09:00 12/13/20 12:47 DC 12/13/20 09:29 Mirtazapine (Remeron) 15 mg QHS PO 12/11/20 21:00 12/27/20 20:57 Risperidone (RisperDAL) 3 mg DAILY PO 12/14/20 09:00 12/23/20 07:12 DC 12/22/20 08:31 Risperidone (RisperDAL CONSTA) 25 mg Q2WKS IM 12/14/20 09:00 12/14/20 09:35 Quetiapine Fumarate (SEROquel) 50 mg PRN Q2HR PRN PO ANXIETY/AGITATION, 2ND CHOICE 12/16/20 04:15 12/16/20 04:41 Lorazepam (Ativan) 0.5 mg PRN Q2HR PRN PO ANXIETY/AGITATION, 1ST CHOICE 12/16/20 04:15 12/23/20 17:16 Trazodone HCl (Desyrel) 25 mg 0900,1300,1700 PO 12/18/20 09:00 12/23/20 16:59 DC 12/23/20 12:29 Temazepam (Restoril) 15 mg PRN QHS PRN PO INSOMNIA, MRX1, 1ST CHOICE 12/19/20 18:15 12/22/20 09:00 DC 12/21/20 19:59 Divalproex Sodium (Depakote Sprinkles) 500 mg BID PO 12/21/20 21:00 12/27/20 20:57 Risperidone (RisperDAL) 3 mg DAILY PO 12/23/20 09:00 12/27/20 09:29 Trazodone HCl (Desyrel) 25 mg DAILY PO 12/24/20 09:00 12/27/20 09:30 Trazodone HCl (Desyrel) 50 mg 1300,1700 PO 12/23/20 17:00 12/27/20 17:24 I have reviewed the current psychotropics carefully including drug interactions. Risk benefit ratio favors no change other than as noted in my dictated progress note. Diagnosis: Problems: (1) Schizoaffective disorder, bipolar type (2) Anxiety disorder, unspecified (3) Impulse disorder, unspecified (4) Bipolar disorder, curr episode mixed, severe, with psychotic features RAJIV VELAZQUEZ MD Dec 28, 2020 08:31
[2020-12-28] MEDS: POTASSIUM CHLORIDE 10 MEQ TABLET.ER. PO SCH (08:55)
[2020-12-28] MEDS: LACTOBACILLUS RHAMNOSUS GG 1 CAPSULE. PO SCH ×2 (08:55→20:21)
[2020-12-28] MEDS: OXYBUTYNIN CHLORIDE 5 MG TABLET PO SCH (08:55)
[2020-12-28] MEDS: clonazePAM 0.5 MG TABLET PO SCH ×3 (08:55→20:20)
[2020-12-28] MEDS: traZODone 50 MG TABLET. PO SCH ×3 (08:55→17:15)
[2020-12-28] MEDS: ASPIRIN ENTERIC COATED 81 MG TABLET.DR. PO SCH (08:55)
[2020-12-28] MEDS: CHOLECALCIFEROL (VITAMIN D3) 1,000 UNIT TABLET PO SCH (08:56)
[2020-12-28] MEDS: risperiDONE 1 MG TABLET. PO SCH (08:56)
[2020-12-28] MEDS: FUROSEMIDE 40 MG TABLET PO SCH (08:56)
[2020-12-28] MEDS: POLYETHYLENE GLYCOL 3350 17 GM PACKET. PO SCH (08:56)
[2020-12-28] MEDS: MAGNESIUM CHLORIDE ER 64 MG TABLET.ER PO SCH (08:56)
[2020-12-28] MEDS: PENTOXIFYLLINE ER 400 MG TABLET.ER. PO SCH ×3 (08:56→17:14)
[2020-12-28] MEDS: PANTOPRAZOLE 40 MG TABLET. PO SCH (08:56)
[2020-12-28] MEDS: DIVALPROEX 125 MG CAP.SPRINK PO SCH ×2 (08:56→20:22)
[2020-12-28] MEDS: PROPRANOLOL 20 MG TABLET. PO SCH (08:59)
[2020-12-28] MEDS: INSULIN LISPRO 300 UNITS/3 ML VIAL. SQ SCH ×3 (09:00→17:19)
[2020-12-28] MEDS: risperiDONE MICROSPHERES 25 MG/2 ML DISP.SYRIN. IM SCH (09:01)
[2020-12-28] MEDS: INSULIN GLARGINE SYRINGE. SQ SCH ×2 (09:01→20:23)
[2020-12-28 15:38] VITALS: BP 136/81
[2020-12-28] MEDS: MIRTAZAPINE 15 MG TABLET PO SCH (20:21)
--- NOTE | 2020-12-28 20:59 | PDOC ---
Exam Note: Donte Note: Please also refer to the separate dictated note~for this date of service dictated separately.~Patient seen individually. Discussed the patient with Nursing staff reviewed the chart.~Reviewed interim history and current functioning. Reviewed vital signs,~Labs/ Radiology~and current medications noted below. Continue current treatment with the changes noted in the dictated addendum note Assessment: Vital Signs/I&O: Vital Signs Date Time Temp Pulse Resp B/P (MAP) Pulse Ox O2 Delivery O2 Flow Rate FiO2 12/28/20 15:38 97.6 81 16 136/81 (99) 96 12/28/20 05:47 Room Air I & O 12/27/20 12/27/20 12/28/20 14:59 22:59 06:59 Intake Total 240 ml 360 ml 120 ml Balance 240 ml 360 ml 120 ml Labs: Laboratory Tests Test 12/28/20 07:20 12/28/20 12:04 12/28/20 17:08 12/28/20 19:22 Glucose (Fingerstick) 142 mg/dL (70-99) H 230 mg/dL (70-99) H 214 mg/dL (70-99) H 312 mg/dL (70-99) H Current Medications: Meds: Laboratory Tests Test 12/28/20 07:20 12/28/20 12:04 12/28/20 17:08 12/28/20 19:22 Glucose (Fingerstick) 142 mg/dL 230 mg/dL 214 mg/dL 312 mg/dL Current Medications Medications (Trade) Dose Ordered Sig/Leonides Route PRN Reason Start Time Stop Time Status Last Admin Dose Admin Multi-Ingredient Ointment (Analgesic [place]) 1 swathi PRN QID PRN TP MUSCLE PAIN 11/21/20 21:00 Al Hydroxide/Mg Hydroxide (Mylanta Plus Xs) 15 ml PRN AFTMEALHC PRN PO DYSPEPSIA 11/21/20 21:00 Magnesium Hydroxide (Milk Of Magnesia) 2,400 mg PRN QHS PRN PO 1ST CHOICE CONSTIPATION 11/21/20 21:00 Acetaminophen (Tylenol) 650 mg PRN Q4HRS PRN PO MILD PAIN / TEMP > 100.3'F 11/21/20 21:45 12/06/20 22:17 Amoxicillin/ Clavulanate Potassium (Augmentin 875/ 125mg) 1 tab BID PO 11/22/20 09:00 11/24/20 21:01 DC 11/24/20 20:55 Aspirin (Aspirin Enteric Coated) 81 mg DAILY PO 11/22/20 09:00 12/28/20 08:55 Bisacodyl (Dulcolax Tab) 5 mg PRN DAILY PRN PO 2ND CHOICE CONSTIPATION 11/21/20 21:45 Furosemide (Lasix) 40 mg DAILY PO 11/22/20 09:00 12/28/20 08:56 Acetaminophen/ Hydrocodone Bitart (Lortab 5/325) 1 tab PRN BID PRN PO mod-sev PAIN 11/21/20 21:45 12/08/20 17:03 DC 12/08/20 09:20 Ibuprofen (Motrin) 200 mg PRN Q6HRS PRN PO MILD PAIN / TEMP > 100.3'F 11/21/20 21:45 Cancel Albuterol/ Ipratropium (Duoneb) 3 ml PRN BID PRN NEB SHORTNESS OF BREATH 11/21/20 21:45 Levothyroxine Sodium (Synthroid) 112 mcg DAILY06 PO 11/22/20 06:00 12/28/20 05:07 Lorazepam (Ativan) 0.5 mg TID PO 11/21/20 22:00 12/03/20 18:47 DC 12/03/20 13:59 Zolpidem Tartrate (Ambien) 5 mg HS PO 11/21/20 22:00 11/27/20 18:02 DC 11/26/20 20:44 Betamethasone Dipropion Augmented (Betamethasone Dp Aug 0.05% Cream) 1 swathi PRN BID PRN TP RASH 11/21/20 22:15 Multi-Ingred Cream/Lotion/Oil/ Oint (Hydrocerin) 1 swathi PRN BID PRN TP Dry Hands 11/21/20 22:00 Guaifenesin (Robitussin Dm) 10 ml PRN Q8HRS PRN PO COUGH 11/21/20 22:00 12/23/20 08:40 Insulin Human Lispro (HumaLOG) 20 units TIDWMEALS SQ 11/22/20 08:00 12/28/20 17:19 Insulin Glargine (Lantus Syringe) 30 unit BID SQ 11/21/20 22:00 12/28/20 20:23 Magnesium Chloride (Mag Delay) 64 mg DAILY PO 11/22/20 09:00 12/28/20 08:56 Non-Formulary Medication (Menthol (Biofreeze)) 1 swathi QID PRN TP MUSCLE PAIN 11/21/20 21:45 UNV Pantoprazole Sodium (Protonix) 40 mg DAILY PO 11/22/20 09:00 12/28/20 08:56 Oxybutynin Chloride (Ditropan) 5 mg DAILY PO 11/22/20 09:00 12/28/20 08:55 Polyethylene Glycol (miraLAX) 17 gm DAILY PO 11/22/20 09:00 12/28/20 08:56 Potassium Chloride (Klor-Con) 10 meq DAILY PO 11/22/20 09:00 12/28/20 08:55 Propranolol HCl (Inderal) 40 mg DAILY PO 11/22/20 09:00 12/28/20 08:59 Quetiapine Fumarate (SEROquel) 600 mg HS PO 11/21/20 22:15 12/03/20 18:47 DC 12/02/20 20:08 Saliva Substitute (Biotene Moisturizing Mouth) 2 spray PRN TID PRN PO DRY MOUTH 11/21/20 22:15 Non-Formulary Medication (Semaglutide (Ozempic)) 1 mg QFR SQ 11/23/20 16:00 12/09/20 10:20 DC Pentoxifylline (TRENtal) 400 mg TIDWMEALS PO 11/22/20 08:00 12/28/20 17:14 Vitamin D (Vitamin D3) 2,000 unit DAILY PO 11/22/20 09:00 12/28/20 08:56 Lactobacillus Rhamnosus (Culturelle) 1 cap BID PO 11/22/20 09:00 12/28/20 20:21 Mirtazapine (Remeron) 7.5 mg QHS PO 11/27/20 21:00 12/11/20 17:03 DC 12/10/20 20:08 Divalproex Sodium (Depakote Er) 500 mg QHS PO 11/28/20 21:00 12/01/20 17:12 DC 11/30/20 20:45 Divalproex Sodium (Depakote Er) 1,000 mg QHS PO 12/01/20 21:00 12/21/20 19:55 DC 12/20/20 20:28 Bupropion HCl (Wellbutrin Xl) 150 mg DAILY PO 12/03/20 09:00 12/09/20 16:24 DC 12/09/20 08:14 Quetiapine Fumarate (SEROquel) 200 mg TID PO 12/03/20 21:00 12/06/20 11:47 DC 12/06/20 07:48 Clonazepam (KlonoPIN) 0.5 mg TID PO 12/03/20 21:00 12/28/20 20:20 Trazodone HCl (Desyrel) 100 mg PRN QHS PRN PO INSOMNIA, MRX1 12/04/20 19:15 12/23/20 20:41 Risperidone (RisperDAL) 0.5 mg 0900,1300,1700 PO 12/06/20 13:00 12/07/20 17:12 DC 12/07/20 09:00 Risperidone (RisperDAL) 1.5 mg DAILY PO 12/08/20 09:00 12/07/20 19:50 DC Risperidone (RisperDAL) 1.5 mg DAILY PO 12/07/20 20:00 12/09/20 16:24 DC 12/09/20 08:16 Acetaminophen/ Hydrocodone Bitart (Lortab 5/325) 1 tab PRN TID PRN PO mod-sev PAIN 12/08/20 17:00 12/26/20 09:27 Risperidone (RisperDAL) 2 mg DAILY PO 12/10/20 09:00 12/13/20 12:47 DC 12/13/20 09:29 Mirtazapine (Remeron) 15 mg QHS PO 12/11/20 21:00 12/28/20 20:21 Risperidone (RisperDAL) 3 mg DAILY PO 12/14/20 09:00 12/23/20 07:12 DC 12/22/20 08:31 Risperidone (RisperDAL CONSTA) 25 mg Q2WKS IM 12/14/20 09:00 12/28/20 09:01 Quetiapine Fumarate (SEROquel) 50 mg PRN Q2HR PRN PO ANXIETY/AGITATION, 2ND CHOICE 12/16/20 04:15 12/16/20 04:41 Lorazepam (Ativan) 0.5 mg PRN Q2HR PRN PO ANXIETY/AGITATION, 1ST CHOICE 12/16/20 04:15 12/23/20 17:16 Trazodone HCl (Desyrel) 25 mg 0900,1300,1700 PO 12/18/20 09:00 12/23/20 16:59 DC 12/23/20 12:29 Temazepam (Restoril) 15 mg PRN QHS PRN PO INSOMNIA, MRX1, 1ST CHOICE 12/19/20 18:15 12/22/20 09:00 DC 12/21/20 19:59 Divalproex Sodium (Depakote Sprinkles) 500 mg BID PO 12/21/20 21:00 12/28/20 20:22 Risperidone (RisperDAL) 3 mg DAILY PO 12/23/20 09:00 12/28/20 08:56 Trazodone HCl (Desyrel) 25 mg DAILY PO 12/24/20 09:00 12/28/20 08:55 Trazodone HCl (Desyrel) 50 mg 1300,1700 PO 12/23/20 17:00 12/28/20 17:15 I have reviewed the current psychotropics carefully including drug interactions. Risk benefit ratio favors no change other than as noted in my dictated progress note. Diagnosis: Problems: (1) Mild cognitive impairment (2) Schizoaffective disorder, bipolar type (3) Anxiety disorder, unspecified (4) Impulse disorder, unspecified (5) Bipolar disorder, curr episode mixed, severe, with psychotic features RAJIV VELAZQUEZ MD Dec 28, 2020 20:59
[2020-12-28] MEDS: traZODone 100 MG TABLET. PO PRN (23:12)
[2020-12-29] MEDS: MAG HYDROX/AL HYDROX/SIMETH 30 ML ORAL.SUSP PO PRN (01:52)
[2020-12-29] MEDS: LEVOTHYROXINE 112 MCG TABLET PO SCH (04:54)
[2020-12-29 06:22] VITALS: BP 133/68
--- NOTE | 2020-12-29 07:55 | PDOC ---
Exam Note: Donte Note: This note is a late entry for 12/28/2020 covers elements not covered in my initial note. Subjective: The patient was seen face to face in the evening of 12/28/2020 with Farzana COPELAND. She slept 6-3/4 hours previous night. The patient refused h.s. meds, took them later. Again refused meds this morning, took them much later. She did receive Risperdal Consta today. I met with her in her room. Review of Systems: No CV, , pulmonary, eye, ENT system symptoms on review. Mental Status Exam: The patient is oriented to herself and situation. Speech has some latency, coherent. Abstraction is fair. Computation is impaired. Language function is intact. Mood and affect withdrawn, still paranoid. Laboratory Data: Reviewed. Impression: Schizoaffective disorder, bipolar type, mixed with psychotic features. Anxiety disorder unspecified. Impulse control disorder unspecified. Plan: No change from initial note. Assessment: Vital Signs/I&O: Vital Signs Date Time Temp Pulse Resp B/P (MAP) Pulse Ox O2 Delivery O2 Flow Rate FiO2 12/29/20 06:22 97.3 72 18 133/68 (89) 96 12/28/20 05:47 Room Air I & O 0 12/28/20 12/28/20 12/29/20 14:59 22:59 06:59 Intake Total 840 ml 840 ml Balance 840 ml 840 ml Labs: Laboratory Tests Test 12/28/20 12:04 12/28/20 17:08 12/28/20 19:22 12/29/20 07:23 Glucose (Fingerstick) 230 mg/dL (70-99) H 214 mg/dL (70-99) H 312 mg/dL (70-99) H 173 mg/dL (70-99) H Current Medications: Meds: Laboratory Tests Test 12/28/20 12:04 12/28/20 17:08 12/28/20 19:22 12/29/20 07:23 Glucose (Fingerstick) 230 mg/dL 214 mg/dL 312 mg/dL 173 mg/dL Current Medications Medications (Trade) Dose Ordered Sig/[place] Route PRN Reason Start Time Stop Time Status Last Admin Dose Admin Multi-Ingredient Ointment (Analgesic [place]) 1 swathi PRN QID PRN TP MUSCLE PAIN 1/13/21 21:00 Al Hydroxide/Mg Hydroxide (Mylanta Plus Xs) 15 ml PRN AFTMEALHC PRN PO DYSPEPSIA 11/21/20 21:00 12/29/20 01:52 Magnesium Hydroxide (Milk Of Magnesia) 2,400 mg PRN QHS PRN PO 1ST CHOICE CONSTIPATION 11/21/20 21:00 Acetaminophen (Tylenol) 650 mg PRN Q4HRS PRN PO MILD PAIN / TEMP > 100.3'F 11/21/20 21:45 12/06/20 22:17 Amoxicillin/ Clavulanate Potassium (Augmentin 875/ 125mg) 1 tab BID PO 11/22/20 09:00 11/24/20 21:01 DC 11/24/20 20:55 Aspirin (Aspirin Enteric Coated) 81 mg DAILY PO 11/22/20 09:00 12/28/20 08:55 Bisacodyl (Dulcolax Tab) 5 mg PRN DAILY PRN PO 2ND CHOICE CONSTIPATION 11/21/20 21:45 Furosemide (Lasix) 40 mg DAILY PO 11/22/20 09:00 12/28/20 08:56 Acetaminophen/ Hydrocodone Bitart (Lortab 5/325) 1 tab PRN BID PRN PO mod-sev PAIN 11/21/20 21:45 12/08/20 17:03 DC 12/08/20 09:20 Ibuprofen (Motrin) 200 mg PRN Q6HRS PRN PO MILD PAIN / TEMP > 100.3'F 11/21/20 21:45 Cancel Albuterol/ Ipratropium (Duoneb) 3 ml PRN BID PRN NEB SHORTNESS OF BREATH 11/21/20 21:45 Levothyroxine Sodium (Synthroid) 112 mcg DAILY06 PO 11/22/20 06:00 12/29/20 04:54 Lorazepam (Ativan) 0.5 mg TID PO 11/21/20 22:00 12/03/20 18:47 DC 12/03/20 13:59 Zolpidem Tartrate (Ambien) 5 mg HS PO 11/21/20 22:00 11/27/20 18:02 DC 11/26/20 20:44 Betamethasone Dipropion Augmented (Betamethasone Dp Aug 0.05% Cream) 1 swathi PRN BID PRN TP RASH 11/21/20 22:15 Multi-Ingred Cream/Lotion/Oil/ Oint (Hydrocerin) 1 swathi PRN BID PRN TP Dry Hands 11/21/20 22:00 Guaifenesin (Robitussin Dm) 10 ml PRN Q8HRS PRN PO COUGH 11/21/20 22:00 12/23/20 08:40 Insulin Human Lispro (HumaLOG) 20 units TIDWMEALS SQ 11/22/20 08:00 12/28/20 17:19 Insulin Glargine (Lantus Syringe) 30 unit BID SQ 11/21/20 22:00 12/28/20 20:23 Magnesium Chloride (Mag Delay) 64 mg DAILY PO 11/22/20 09:00 12/28/20 08:56 Non-Formulary Medication (Menthol (Biofreeze)) 1 swathi QID PRN TP MUSCLE PAIN 11/21/20 21:45 UNV Pantoprazole Sodium (Protonix) 40 mg DAILY PO 11/22/20 09:00 12/28/20 08:56 Oxybutynin Chloride (Ditropan) 5 mg DAILY PO 11/22/20 09:00 12/28/20 08:55 Polyethylene Glycol (miraLAX) 17 gm DAILY PO 11/22/20 09:00 12/28/20 08:56 Potassium Chloride (Klor-Con) 10 meq DAILY PO 11/22/20 09:00 12/28/20 08:55 Propranolol HCl (Inderal) 40 mg DAILY PO 11/22/20 09:00 12/28/20 08:59 Quetiapine Fumarate (SEROquel) 600 mg HS PO 11/21/20 22:15 12/03/20 18:47 DC 12/02/20 20:08 Saliva Substitute (Biotene Moisturizing Mouth) 2 spray PRN TID PRN PO DRY MOUTH 11/21/20 22:15 Non-Formulary Medication (Semaglutide (Ozempic)) 1 mg QFR SQ 11/23/20 16:00 12/09/20 10:20 DC Pentoxifylline (TRENtal) 400 mg TIDWMEALS PO 11/22/20 08:00 12/28/20 17:14 Vitamin D (Vitamin D3) 2,000 unit DAILY PO 11/22/20 09:00 12/28/20 08:56 Lactobacillus Rhamnosus (Culturelle) 1 cap BID PO 11/22/20 09:00 12/28/20 20:21 Mirtazapine (Remeron) 7.5 mg QHS PO 11/27/20 21:00 12/11/20 17:03 DC 12/10/20 20:08 Divalproex Sodium (Depakote Er) 500 mg QHS PO 11/28/20 21:00 12/01/20 17:12 DC 11/30/20 20:45 Divalproex Sodium (Depakote Er) 1,000 mg QHS PO 12/01/20 21:00 12/21/20 19:55 DC 12/20/20 20:28 Bupropion HCl (Wellbutrin Xl) 150 mg DAILY PO 12/03/20 09:00 12/09/20 16:24 DC 12/09/20 08:14 Quetiapine Fumarate (SEROquel) 200 mg TID PO 12/03/20 21:00 12/06/20 11:47 DC 12/06/20 07:48 Clonazepam (KlonoPIN) 0.5 mg TID PO 12/03/20 21:00 12/28/20 20:20 Trazodone HCl (Desyrel) 100 mg PRN QHS PRN PO INSOMNIA, MRX1 12/04/20 19:15 12/28/20 23:12 Risperidone (RisperDAL) 0.5 mg 0900,1300,1700 PO 12/06/20 13:00 12/07/20 17:12 DC 12/07/20 09:00 Risperidone (RisperDAL) 1.5 mg DAILY PO 12/08/20 09:00 12/07/20 19:50 DC Risperidone (RisperDAL) 1.5 mg DAILY PO 12/07/20 20:00 12/09/20 16:24 DC 12/09/20 08:16 Acetaminophen/ Hydrocodone Bitart (Lortab 5/325) 1 tab PRN TID PRN PO mod-sev PAIN 12/08/20 17:00 12/26/20 09:27 Risperidone (RisperDAL) 2 mg DAILY PO 12/10/20 09:00 12/13/20 12:47 DC 12/13/20 09:29 Mirtazapine (Remeron) 15 mg QHS PO 12/11/20 21:00 12/28/20 20:21 Risperidone (RisperDAL) 3 mg DAILY PO 12/14/20 09:00 12/23/20 07:12 DC 12/22/20 08:31 Risperidone (RisperDAL CONSTA) 25 mg Q2WKS IM 12/14/20 09:00 12/28/20 09:01 Quetiapine Fumarate (SEROquel) 50 mg PRN Q2HR PRN PO ANXIETY/AGITATION, 2ND CHOICE 12/16/20 04:15 12/16/20 04:41 Lorazepam (Ativan) 0.5 mg PRN Q2HR PRN PO ANXIETY/AGITATION, 1ST CHOICE 12/16/20 04:15 12/23/20 17:16 Trazodone HCl (Desyrel) 25 mg 0900,1300,1700 PO 12/18/20 09:00 12/23/20 16:59 DC 12/23/20 12:29 Temazepam (Restoril) 15 mg PRN QHS PRN PO INSOMNIA, MRX1, 1ST CHOICE 12/19/20 18:15 12/22/20 09:00 DC 12/21/20 19:59 Divalproex Sodium (Depakote Sprinkles) 500 mg BID PO 12/21/20 21:00 12/28/20 20:22 Risperidone (RisperDAL) 3 mg DAILY PO 12/23/20 09:00 12/28/20 08:56 Trazodone HCl (Desyrel) 25 mg DAILY PO 12/24/20 09:00 12/28/20 08:55 Trazodone HCl (Desyrel) 50 mg 1300,1700 PO 12/23/20 17:00 12/28/20 17:15 I have reviewed the current psychotropics carefully including drug interactions. Risk benefit ratio favors no change other than as noted in my dictated progress note. Diagnosis: Problems: (1) Mild cognitive impairment (2) Schizoaffective disorder, bipolar type (3) Anxiety disorder, unspecified (4) Impulse disorder, unspecified (5) Bipolar disorder, curr episode mixed, severe, with psychotic features RAJIV VELAZQUEZ MD Dec 29, 2020 07:55
[2020-12-29] MEDS: DIVALPROEX 125 MG CAP.SPRINK PO SCH ×2 (08:15→20:20)
[2020-12-29] MEDS: PENTOXIFYLLINE ER 400 MG TABLET.ER. PO SCH ×3 (08:15→17:17)
[2020-12-29] MEDS: LACTOBACILLUS RHAMNOSUS GG 1 CAPSULE. PO SCH ×2 (08:15→20:19)
[2020-12-29] MEDS: ASPIRIN ENTERIC COATED 81 MG TABLET.DR. PO SCH (08:15)
[2020-12-29] MEDS: traZODone 50 MG TABLET. PO SCH ×3 (08:15→17:17)
[2020-12-29] MEDS: PROPRANOLOL 20 MG TABLET. PO SCH (08:16)
[2020-12-29] MEDS: OXYBUTYNIN CHLORIDE 5 MG TABLET PO SCH (08:16)
[2020-12-29] MEDS: CHOLECALCIFEROL (VITAMIN D3) 1,000 UNIT TABLET PO SCH (08:17)
[2020-12-29] MEDS: PANTOPRAZOLE 40 MG TABLET. PO SCH (08:17)
[2020-12-29] MEDS: MAGNESIUM CHLORIDE ER 64 MG TABLET.ER PO SCH (08:17)
[2020-12-29] MEDS: risperiDONE 1 MG TABLET. PO SCH (08:17)
[2020-12-29] MEDS: FUROSEMIDE 40 MG TABLET PO SCH (08:17)
[2020-12-29] MEDS: POTASSIUM CHLORIDE 10 MEQ TABLET.ER. PO SCH (08:18)
[2020-12-29] MEDS: INSULIN LISPRO 300 UNITS/3 ML VIAL. SQ SCH ×3 (08:18→17:18)
[2020-12-29] MEDS: INSULIN GLARGINE SYRINGE. SQ SCH ×2 (08:19→20:19)
[2020-12-29] MEDS: clonazePAM 0.5 MG TABLET PO SCH ×3 (08:22→20:20)
[2020-12-29 08:34] LABS: BASO # 0.1 x10^3/uL (0.0-0.2); BASO % 1 % (0-3); EOS # 0.2 x10^3/uL (0.0-0.7); EOS % 3 % (0-3); HEMATOCRIT 39.6 % (36.0-47.0); HEMOGLOBIN 13.1 g/dL (12.0-15.5); LYMPH # 2.6 x10^3/uL (1.0-4.8); LYMPH % 35 % (24-48); MEAN CORPUSCULAR HEMOGLOBIN 28 pg (25-35); MEAN CORPUSCULAR HGB CONC 33 g/dL (31-37); MEAN CORPUSCULAR VOLUME 85 fL (79-100); MONO # 0.9 x10^3/uL (0.0-1.1); MONO % 12 % (0-9); NEUT # 3.7 x10^3uL (1.8-7.7); NEUT % 50 % (31-73); PLATELET COUNT 203 x10^3/uL (140-400); RED BLOOD COUNT 4.65 x10^6/uL (3.50-5.40); WHITE BLOOD COUNT 7.4 x10^3/uL (4.0-11.0)
[2020-12-29] MEDS: POLYETHYLENE GLYCOL 3350 17 GM PACKET. PO SCH (09:00)
[2020-12-29 09:06] LABS: ALBUMIN 3.1 g/dL (3.4-5.0); ALBUMIN/GLOBULIN RATIO 0.7 (1.0-1.7); CALCIUM 9.4 mg/dL (8.5-10.1); CREATININE 0.8 mg/dL (0.6-1.0); POTASSIUM 3.9 mmol/L (3.5-5.1); TOTAL BILIRUBIN 0.2 mg/dL (0.2-1.0); TOTAL PROTEIN 7.3 g/dL (6.4-8.2)
[2020-12-29 15:50] VITALS: BP 127/80
[2020-12-29] MEDS: MIRTAZAPINE 15 MG TABLET PO SCH (20:19)
--- NOTE | 2020-12-29 21:04 | PDOC ---
Exam Note: Donte Note: Please also refer to the separate dictated note~for this date of service dictated separately.~Patient seen individually. Discussed the patient with Nursing staff reviewed the chart.~Reviewed interim history and current functioning. Reviewed vital signs,~Labs/ Radiology~and current medications noted below. Continue current treatment with the changes noted in the dictated addendum note Assessment: Vital Signs/I&O: Vital Signs Date Time Temp Pulse Resp B/P (MAP) Pulse Ox O2 Delivery O2 Flow Rate FiO2 12/29/20 15:50 97.5 69 16 127/80 (96) 98 Room Air I & O 12/28/20 12/28/20 12/29/20 15:00 23:00 07:00 Intake Total 840 ml 840 ml Balance 840 ml 840 ml Labs: Laboratory Tests Test 12/29/20 07:23 12/29/20 08:00 12/29/20 11:23 12/29/20 16:29 Glucose (Fingerstick) 173 mg/dL (70-99) H 339 mg/dL (70-99) H 367 mg/dL (70-99) H White Blood Count 7.4 x10^3/uL (4.0-11.0) Red Blood Count 4.65 x10^6/uL (3.50-5.40) Hemoglobin 13.1 g/dL (12.0-15.5) Hematocrit 39.6 % (36.0-47.0) Mean Corpuscular Volume 85 fL (79-100) Mean Corpuscular Hemoglobin 28 pg (25-35) Mean Corpuscular Hemoglobin Concent 33 g/dL (31-37) Red Cell Distribution Width 13.0 % (11.5-14.5) Platelet Count 203 x10^3/uL (140-400) Neutrophils (%) (Auto) 50 % (31-73) Lymphocytes (%) (Auto) 35 % (24-48) Monocytes (%) (Auto) 12 % (0-9) H Eosinophils (%) (Auto) 3 % (0-3) Basophils (%) (Auto) 1 % (0-3) Neutrophils # (Auto) 3.7 x10^3uL (1.8-7.7) Lymphocytes # (Auto) 2.6 x10^3/uL (1.0-4.8) Monocytes # (Auto) 0.9 x10^3/uL (0.0-1.1) Eosinophils # (Auto) 0.2 x10^3/uL (0.0-0.7) Basophils # (Auto) 0.1 x10^3/uL (0.0-0.2) Sodium Level 139 mmol/L (136-145) Potassium Level 3.9 mmol/L (3.5-5.1) Chloride Level 103 mmol/L (98-107) Carbon Dioxide Level 28 mmol/L (21-32) Anion Gap 8 (6-14) Blood Urea Nitrogen 16 mg/dL (7-20) Creatinine 0.8 mg/dL (0.6-1.0) Estimated GFR (Cockcroft-Gault) 72.0 BUN/Creatinine Ratio 20 (6-20) Glucose Level 183 mg/dL (70-99) H Calcium Level 9.4 mg/dL (8.5-10.1) Total Bilirubin 0.2 mg/dL (0.2-1.0) Aspartate Amino Transferase (AST) 17 U/L (15-37) Alanine Aminotransferase (ALT) 26 U/L (14-59) Alkaline Phosphatase 116 U/L (46-116) Total Protein 7.3 g/dL (6.4-8.2) Albumin 3.1 g/dL (3.4-5.0) L Albumin/Globulin Ratio 0.7 (1.0-1.7) L Test 12/29/20 19:06 Glucose (Fingerstick) 283 mg/dL (70-99) H Current Medications: Meds: Laboratory Tests Test 12/29/20 07:23 12/29/20 08:00 12/29/20 11:23 12/29/20 16:29 Glucose (Fingerstick) 173 mg/dL 339 mg/dL 367 mg/dL White Blood Count 7.4 x10^3/uL Red Blood Count 4.65 x10^6/uL Hemoglobin 13.1 g/dL Hematocrit 39.6 % Mean Corpuscular Volume 85 fL Mean Corpuscular Hemoglobin 28 pg Mean Corpuscular Hemoglobin Concent 33 g/dL Red Cell Distribution Width 13.0 % Platelet Count 203 x10^3/uL Neutrophils (%) (Auto) 50 % Lymphocytes (%) (Auto) 35 % Monocytes (%) (Auto) 12 % Eosinophils (%) (Auto) 3 % Basophils (%) (Auto) 1 % Neutrophils # (Auto) 3.7 x10^3uL Lymphocytes # (Auto) 2.6 x10^3/uL Monocytes # (Auto) 0.9 x10^3/uL Eosinophils # (Auto) 0.2 x10^3/uL Basophils # (Auto) 0.1 x10^3/uL Sodium Level 139 mmol/L Potassium Level 3.9 mmol/L Chloride Level 103 mmol/L Carbon Dioxide Level 28 mmol/L Anion Gap 8 Blood Urea Nitrogen 16 mg/dL Creatinine 0.8 mg/dL Estimated GFR (Cockcroft-Gault) 72.0 BUN/Creatinine Ratio 20 Glucose Level 183 mg/dL Calcium Level 9.4 mg/dL Total Bilirubin 0.2 mg/dL Aspartate Amino Transf (AST/SGOT) 17 U/L Alanine Aminotransferase (ALT/SGPT) 26 U/L Alkaline Phosphatase 116 U/L Total Protein 7.3 g/dL Albumin 3.1 g/dL Albumin/Globulin Ratio 0.7 Test 12/29/20 19:06 Glucose (Fingerstick) 283 mg/dL Current Medications Medications (Trade) Dose Ordered Sig/Leonides Route PRN Reason Start Time Stop Time Status Last Admin Dose Admin Multi-Ingredient Ointment (Analgesic [place]) 1 swathi PRN QID PRN TP MUSCLE PAIN 11/21/20 21:00 Al Hydroxide/Mg Hydroxide (Mylanta Plus Xs) 15 ml PRN AFTMEALHC PRN PO DYSPEPSIA 11/21/20 21:00 12/29/20 01:52 Magnesium Hydroxide (Milk Of Magnesia) 2,400 mg PRN QHS PRN PO 1ST CHOICE CONSTIPATION 11/21/20 21:00 Acetaminophen (Tylenol) 650 mg PRN Q4HRS PRN PO MILD PAIN / TEMP > 100.3'F 11/21/20 21:45 12/06/20 22:17 Amoxicillin/ Clavulanate Potassium (Augmentin 875/ 125mg) 1 tab BID PO 11/22/20 09:00 11/24/20 21:01 DC 11/24/20 20:55 Aspirin (Aspirin Enteric Coated) 81 mg DAILY PO 11/22/20 09:00 12/29/20 08:15 Bisacodyl (Dulcolax Tab) 5 mg PRN DAILY PRN PO 2ND CHOICE CONSTIPATION 11/21/20 21:45 Furosemide (Lasix) 40 mg DAILY PO 11/22/20 09:00 12/29/20 08:17 Acetaminophen/ Hydrocodone Bitart (Lortab 5/325) 1 tab PRN BID PRN PO mod-sev PAIN 11/21/20 21:45 12/08/20 17:03 DC 12/08/20 09:20 Ibuprofen (Motrin) 200 mg PRN Q6HRS PRN PO MILD PAIN / TEMP > 100.3'F 11/21/20 21:45 Cancel Albuterol/ Ipratropium (Duoneb) 3 ml PRN BID PRN NEB SHORTNESS OF BREATH 11/21/20 21:45 Levothyroxine Sodium (Synthroid) 112 mcg DAILY06 PO 11/22/20 06:00 12/29/20 04:54 Lorazepam (Ativan) 0.5 mg TID PO 11/21/20 22:00 12/03/20 18:47 DC 12/03/20 13:59 Zolpidem Tartrate (Ambien) 5 mg HS PO 11/21/20 22:00 11/27/20 18:02 DC 11/26/20 20:44 Betamethasone Dipropion Augmented (Betamethasone Dp Aug 0.05% Cream) 1 swathi PRN BID PRN TP RASH 11/21/20 22:15 Multi-Ingred Cream/Lotion/Oil/ Oint (Hydrocerin) 1 swathi PRN BID PRN TP Dry Hands 11/21/20 22:00 Guaifenesin (Robitussin Dm) 10 ml PRN Q8HRS PRN PO COUGH 11/21/20 22:00 12/23/20 08:40 Insulin Human Lispro (HumaLOG) 20 units TIDWMEALS SQ 11/22/20 08:00 12/29/20 17:18 Insulin Glargine (Lantus Syringe) 30 unit BID SQ 11/21/20 22:00 12/29/20 20:19 Magnesium Chloride (Mag Delay) 64 mg DAILY PO 11/22/20 09:00 12/29/20 08:17 Non-Formulary Medication (Menthol (Biofreeze)) 1 swathi QID PRN TP MUSCLE PAIN 11/21/20 21:45 UNV Pantoprazole Sodium (Protonix) 40 mg DAILY PO 11/22/20 09:00 12/29/20 08:17 Oxybutynin Chloride (Ditropan) 5 mg DAILY PO 11/22/20 09:00 12/29/20 08:16 Polyethylene Glycol (miraLAX) 17 gm DAILY PO 11/22/20 09:00 12/28/20 08:56 Potassium Chloride (Klor-Con) 10 meq DAILY PO 11/22/20 09:00 12/29/20 08:18 Propranolol HCl (Inderal) 40 mg DAILY PO 11/22/20 09:00 12/29/20 08:16 Quetiapine Fumarate (SEROquel) 600 mg HS PO 11/21/20 22:15 12/03/20 18:47 DC 12/02/20 20:08 Saliva Substitute (Biotene Moisturizing Mouth) 2 spray PRN TID PRN PO DRY MOUTH 11/21/20 22:15 Non-Formulary Medication (Semaglutide (Ozempic)) 1 mg QFR SQ 11/23/20 16:00 12/09/20 10:20 DC Pentoxifylline (TRENtal) 400 mg TIDWMEALS PO 11/22/20 08:00 12/29/20 17:17 Vitamin D (Vitamin D3) 2,000 unit DAILY PO 11/22/20 09:00 12/29/20 08:17 Lactobacillus Rhamnosus (Culturelle) 1 cap BID PO 11/22/20 09:00 12/29/20 20:19 Mirtazapine (Remeron) 7.5 mg QHS PO 11/27/20 21:00 12/11/20 17:03 DC 12/10/20 20:08 Divalproex Sodium (Depakote Er) 500 mg QHS PO 11/28/20 21:00 12/01/20 17:12 DC 11/30/20 20:45 Divalproex Sodium (Depakote Er) 1,000 mg QHS PO 12/01/20 21:00 12/21/20 19:55 DC 12/20/20 20:28 Bupropion HCl (Wellbutrin Xl) 150 mg DAILY PO 12/03/20 09:00 12/09/20 16:24 DC 12/09/20 08:14 Quetiapine Fumarate (SEROquel) 200 mg TID PO 12/03/20 21:00 12/06/20 11:47 DC 12/06/20 07:48 Clonazepam (KlonoPIN) 0.5 mg TID PO 12/03/20 21:00 12/29/20 20:20 Trazodone HCl (Desyrel) 100 mg PRN QHS PRN PO INSOMNIA, MRX1 12/04/20 19:15 12/28/20 23:12 Risperidone (RisperDAL) 0.5 mg 0900,1300,1700 PO 12/06/20 13:00 12/07/20 17:12 DC 12/07/20 09:00 Risperidone (RisperDAL) 1.5 mg DAILY PO 12/08/20 09:00 12/07/20 19:50 DC Risperidone (RisperDAL) 1.5 mg DAILY PO 12/07/20 20:00 12/09/20 16:24 DC 12/09/20 08:16 Acetaminophen/ Hydrocodone Bitart (Lortab 5/325) 1 tab PRN TID PRN PO mod-sev PAIN 12/08/20 17:00 12/26/20 09:27 Risperidone (RisperDAL) 2 mg DAILY PO 12/10/20 09:00 12/13/20 12:47 DC 12/13/20 09:29 Mirtazapine (Remeron) 15 mg QHS PO 12/11/20 21:00 12/29/20 20:19 Risperidone (RisperDAL) 3 mg DAILY PO 12/14/20 09:00 12/23/20 07:12 DC 12/22/20 08:31 Risperidone (RisperDAL CONSTA) 25 mg Q2WKS IM 12/14/20 09:00 12/28/20 09:01 Quetiapine Fumarate (SEROquel) 50 mg PRN Q2HR PRN PO ANXIETY/AGITATION, 2ND CHOICE 12/16/20 04:15 12/16/20 04:41 Lorazepam (Ativan) 0.5 mg PRN Q2HR PRN PO ANXIETY/AGITATION, 1ST CHOICE 12/16/20 04:15 12/23/20 17:16 Trazodone HCl (Desyrel) 25 mg 0900,1300,1700 PO 12/18/20 09:00 12/23/20 16:59 DC 12/23/20 12:29 Temazepam (Restoril) 15 mg PRN QHS PRN PO INSOMNIA, MRX1, 1ST CHOICE 12/19/20 18:15 12/22/20 09:00 DC 12/21/20 19:59 Divalproex Sodium (Depakote Sprinkles) 500 mg BID PO 12/21/20 21:00 12/29/20 20:20 Risperidone (RisperDAL) 3 mg DAILY PO 12/23/20 09:00 12/29/20 08:17 Trazodone HCl (Desyrel) 25 mg DAILY PO 12/24/20 09:00 12/29/20 08:15 Trazodone HCl (Desyrel) 50 mg 1300,1700 PO 12/23/20 17:00 12/29/20 17:17 I have reviewed the current psychotropics carefully including drug interactions. Risk benefit ratio favors no change other than as noted in my dictated progress note. Diagnosis: Problems: (1) Mild cognitive impairment (2) Schizoaffective disorder, bipolar type (3) Anxiety disorder, unspecified (4) Impulse disorder, unspecified (5) Bipolar disorder, curr episode mixed, severe, with psychotic features RAJIV VELAZQUEZ MD Dec 29, 2020 21:04
[2020-12-30] MEDS: LEVOTHYROXINE 112 MCG TABLET PO SCH (05:08)
[2020-12-30 05:40] VITALS: BP 117/69
[2020-12-30] MEDS: POLYETHYLENE GLYCOL 3350 17 GM PACKET. PO SCH (08:15)
[2020-12-30] MEDS: PENTOXIFYLLINE ER 400 MG TABLET.ER. PO SCH ×3 (08:50→17:21)
[2020-12-30] MEDS: INSULIN LISPRO 300 UNITS/3 ML VIAL. SQ SCH ×3 (08:54→17:22)
[2020-12-30] MEDS: INSULIN GLARGINE SYRINGE. SQ SCH ×2 (08:55→19:57)
[2020-12-30] MEDS: traZODone 50 MG TABLET. PO SCH ×3 (08:56→17:21)
[2020-12-30] MEDS: ASPIRIN ENTERIC COATED 81 MG TABLET.DR. PO SCH (08:56)
[2020-12-30] MEDS: LACTOBACILLUS RHAMNOSUS GG 1 CAPSULE. PO SCH ×2 (08:56→19:58)
[2020-12-30] MEDS: OXYBUTYNIN CHLORIDE 5 MG TABLET PO SCH (08:56)
[2020-12-30] MEDS: DIVALPROEX 125 MG CAP.SPRINK PO SCH ×2 (08:56→19:58)
[2020-12-30] MEDS: clonazePAM 0.5 MG TABLET PO SCH ×3 (08:59→19:55)
[2020-12-30] MEDS: POTASSIUM CHLORIDE 10 MEQ TABLET.ER. PO SCH (08:59)
[2020-12-30] MEDS: PROPRANOLOL 20 MG TABLET. PO SCH (08:59)
[2020-12-30] MEDS: FUROSEMIDE 40 MG TABLET PO SCH (09:00)
[2020-12-30] MEDS: PANTOPRAZOLE 40 MG TABLET. PO SCH (09:00)
[2020-12-30] MEDS: MAGNESIUM CHLORIDE ER 64 MG TABLET.ER PO SCH (09:00)
[2020-12-30] MEDS: risperiDONE 1 MG TABLET. PO SCH (09:01)
[2020-12-30] MEDS: CHOLECALCIFEROL (VITAMIN D3) 1,000 UNIT TABLET PO SCH (09:01)
[2020-12-30 16:27] VITALS: BP 107/69
[2020-12-30] MEDS: MIRTAZAPINE 15 MG TABLET PO SCH (19:55)
[2020-12-30] MEDS: HYDROcodone/APAP 5/325MG 1 TAB TABLET PO PRN (19:56)
[2020-12-30] MEDS: traZODone 100 MG TABLET. PO PRN (19:56)
--- NOTE | 2020-12-30 21:35 | PDOC ---
Exam Note: Donte Note: Please also refer to the separate dictated note~for this date of service dictated separately.~Patient seen individually. Discussed the patient with Nursing staff reviewed the chart.~Reviewed interim history and current functioning. Reviewed vital signs,~Labs/ Radiology~and current medications noted below. Continue current treatment with the changes noted in the dictated addendum note Assessment: Vital Signs/I&O: Vital Signs Date Time Temp Pulse Resp B/P (MAP) Pulse Ox O2 Delivery O2 Flow Rate FiO2 12/30/20 19:56 97 12/30/20 16:27 96.9 70 20 107/69 (82) Room Air I & O 12/29/20 12/29/20 12/30/20 14:59 22:59 06:59 Intake Total 1080 ml 720 ml Balance 1080 ml 720 ml Labs: Laboratory Tests Test 12/30/20 16:48 12/30/20 19:33 Glucose (Fingerstick) 217 mg/dL (70-99) H 242 mg/dL (70-99) H Current Medications: I have reviewed the current psychotropics carefully including drug interactions. Risk benefit ratio favors no change other than as noted in my dictated progress note. Diagnosis: Problems: (1) Mild cognitive impairment (2) Schizoaffective disorder, bipolar type (3) Anxiety disorder, unspecified (4) Intellectual disability (5) Impulse disorder, unspecified (6) Bipolar disorder, curr episode mixed, severe, with psychotic features RAJIV VELAZQUEZ MD Dec 30, 2020 21:35
[2020-12-31] MEDS: MAG HYDROX/AL HYDROX/SIMETH 30 ML ORAL.SUSP PO PRN (05:02)
[2020-12-31] MEDS: LEVOTHYROXINE 112 MCG TABLET PO SCH (05:02)
[2020-12-31 05:58] VITALS: BP 123/75
--- NOTE | 2020-12-31 07:09 | PN ---
DATE: 12/30/2020 PSYCHIATRIC PROGRESS NOTE This late entry date of service 12/30/2020 covers elements not covered in my initial note. SUBJECTIVE: I met with the patient in her room. Per MIN Cantu, the patient slept 6-1/4 hours previous night and at times she gets irritable, at one time refused her medications, took it later. Less paranoid. REVIEW OF SYSTEMS: No CV, , pulmonary, eye, ENT system symptoms on review. MENTAL STATUS EXAM: Oriented to herself and situation. Speech moderate latency, often responses monosyllabic. The intense stare that she normally gives during individual visits seemed better. Abstraction fair, computation impaired, language function intact. Mood and affect somewhat withdrawn. LABORATORY DATA: Reviewed. IMPRESSION: Schizoaffective disorder, bipolar type, mixed with psychotic features; anxiety disorder, unspecified; impulse control disorder, unspecified. PLAN: I have carefully reviewed the patient's current psychotropics. Risk/benefit ratio favors no change from initial note. She is on Klonopin 0.5 mg t.i.d. We will try and reduce this. Maintain Risperdal 3 mg daily along with Risperdal Consta 25 mg IM every 2 weeks, Remeron 15 mg at bedtime; Depakote Sprinkles 500 mg b.i.d., level therapeutic at 57, trazodone 100 mg at bedtime p.r.n., may repeat x 1 for insomnia and trazodone 25 mg at 0900 hours, 50 mg at 1300 hours and 1700 hours. We may reduce this as well in due course. RAJIV VELAZQUEZ MD DR: MEÑO/candice JOB#: [id number] / [id number]
[2020-12-31] MEDS: OXYBUTYNIN CHLORIDE 5 MG TABLET PO SCH (09:28)
[2020-12-31] MEDS: DIVALPROEX 125 MG CAP.SPRINK PO SCH ×2 (09:28→20:34)
[2020-12-31] MEDS: ASPIRIN ENTERIC COATED 81 MG TABLET.DR. PO SCH (09:28)
[2020-12-31] MEDS: MAGNESIUM CHLORIDE ER 64 MG TABLET.ER PO SCH (09:28)
[2020-12-31] MEDS: PROPRANOLOL 20 MG TABLET. PO SCH (09:28)
[2020-12-31] MEDS: FUROSEMIDE 40 MG TABLET PO SCH (09:28)
[2020-12-31] MEDS: PANTOPRAZOLE 40 MG TABLET. PO SCH (09:28)
[2020-12-31] MEDS: risperiDONE 1 MG TABLET. PO SCH (09:29)
[2020-12-31] MEDS: PENTOXIFYLLINE ER 400 MG TABLET.ER. PO SCH ×3 (09:29→17:00)
[2020-12-31] MEDS: CHOLECALCIFEROL (VITAMIN D3) 1,000 UNIT TABLET PO SCH (09:29)
[2020-12-31] MEDS: traZODone 50 MG TABLET. PO SCH ×3 (09:29→17:50)
[2020-12-31] MEDS: LACTOBACILLUS RHAMNOSUS GG 1 CAPSULE. PO SCH ×2 (09:30→20:34)
[2020-12-31] MEDS: POTASSIUM CHLORIDE 10 MEQ TABLET.ER. PO SCH (09:30)
[2020-12-31] MEDS: POLYETHYLENE GLYCOL 3350 17 GM PACKET. PO SCH (09:30)
[2020-12-31] MEDS: INSULIN GLARGINE SYRINGE. SQ SCH ×2 (09:31→20:37)
[2020-12-31] MEDS: INSULIN LISPRO 300 UNITS/3 ML VIAL. SQ SCH ×3 (09:32→17:52)
[2020-12-31] MEDS: clonazePAM 0.5 MG TABLET PO SCH ×3 (09:35→20:34)
[2020-12-31 15:40] VITALS: BP 121/78
[2020-12-31] MEDS: MIRTAZAPINE 15 MG TABLET PO SCH (20:34)
[2020-12-31] MEDS: HYDROcodone/APAP 5/325MG 1 TAB TABLET PO PRN (21:21)
--- NOTE | 2020-12-31 22:01 | PDOC ---
Exam Note: Donte Note: Please also refer to the separate dictated note~for this date of service dictated separately.~Patient seen individually. Discussed the patient with Nursing staff reviewed the chart.~Reviewed interim history and current functioning. Reviewed vital signs,~Labs/ Radiology~and current medications noted below. Continue current treatment with the changes noted in the dictated addendum note Assessment: Vital Signs/I&O: Vital Signs Date Time Temp Pulse Resp B/P (MAP) Pulse Ox O2 Delivery O2 Flow Rate FiO2 12/31/20 21:21 98 12/31/20 15:40 97.0 66 20 121/78 (92) Room Air I & O 12/30/20 12/30/20 12/31/20 15:00 23:00 07:00 Intake Total 960 ml 720 ml Balance 960 ml 720 ml Labs: Laboratory Tests Test 12/31/20 07:49 12/31/20 11:47 12/31/20 16:56 12/31/20 19:00 Glucose (Fingerstick) 139 mg/dL (70-99) H 159 mg/dL (70-99) H 168 mg/dL (70-99) H 220 mg/dL (70-99) H Current Medications: I have reviewed the current psychotropics carefully including drug interactions. Risk benefit ratio favors no change other than as noted in my dictated progress note. Diagnosis: Problems: (1) Mild cognitive impairment (2) Schizoaffective disorder, bipolar type (3) Anxiety disorder, unspecified (4) Intellectual disability (5) Impulse disorder, unspecified (6) Bipolar disorder, curr episode mixed, severe, with psychotic features RAJIV VELAZQUEZ MD Dec 31, 2020 22:01
[2021-01-01] MEDS: traZODone 100 MG TABLET. PO PRN ×2 (00:20→20:19)
[2021-01-01] MEDS: LEVOTHYROXINE 112 MCG TABLET PO SCH (05:40)
[2021-01-01 05:53] VITALS: BP 111/61
[2021-01-01] MEDS: POLYETHYLENE GLYCOL 3350 17 GM PACKET. PO SCH (08:14)
[2021-01-01] MEDS: DIVALPROEX 125 MG CAP.SPRINK PO SCH ×2 (08:15→20:17)
[2021-01-01] MEDS: ASPIRIN ENTERIC COATED 81 MG TABLET.DR. PO SCH (08:15)
[2021-01-01] MEDS: OXYBUTYNIN CHLORIDE 5 MG TABLET PO SCH (08:15)
[2021-01-01] MEDS: PENTOXIFYLLINE ER 400 MG TABLET.ER. PO SCH ×3 (08:15→17:52)
[2021-01-01] MEDS: PANTOPRAZOLE 40 MG TABLET. PO SCH (08:16)
[2021-01-01] MEDS: MAGNESIUM CHLORIDE ER 64 MG TABLET.ER PO SCH (08:16)
[2021-01-01] MEDS: FUROSEMIDE 40 MG TABLET PO SCH (08:16)
[2021-01-01] MEDS: clonazePAM 0.5 MG TABLET PO SCH ×3 (08:17→20:17)
[2021-01-01] MEDS: risperiDONE 1 MG TABLET. PO SCH (08:17)
[2021-01-01] MEDS: LACTOBACILLUS RHAMNOSUS GG 1 CAPSULE. PO SCH ×2 (08:17→20:17)
[2021-01-01] MEDS: CHOLECALCIFEROL (VITAMIN D3) 1,000 UNIT TABLET PO SCH (08:17)
[2021-01-01] MEDS: traZODone 50 MG TABLET. PO SCH ×3 (08:17→17:52)
[2021-01-01] MEDS: POTASSIUM CHLORIDE 10 MEQ TABLET.ER. PO SCH (08:17)
[2021-01-01] MEDS: PROPRANOLOL 20 MG TABLET. PO SCH (08:21)
--- NOTE | 2021-01-01 08:22 | PDOC ---
Exam Note: Donte Note: This note is a late entry for 12/29/2020 covers elements not covered in my initial note. Subjective: The patient was seen face to face in the evening of 12/29/2020 with Deisy COPELAND. She slept 4 hours previous night. I met with her in her room. She was lying in bed, not very interactive but otherwise, pleasant. Around lunchtime she was paranoid telling the nursing staff there was a bomb in the building. Review of Systems: No CV, , pulmonary, eye, ENT system symptoms on review. Mental Status Exam: The patient is alert and oriented. Speech has some latency , low in rate and rhythm, low in volume. Abstraction is fair. Computation is impaired. Language function is intact. Mood and affect withdrawn. She is less paranoid. No suicidal or homicidal ideation. Laboratory Data: Reviewed. Impression: Schizoaffective disorder, bipolar type, mixed with psychotic features. Anxiety disorder unspecified. Impulse control disorder unspecified. Plan: No change from initial note. Assessment: Vital Signs/I&O: Vital Signs Date Time Temp Pulse Resp B/P (MAP) Pulse Ox O2 Delivery O2 Flow Rate FiO2 01/01/21 05:53 97.6 69 16 111/61 (78) 96 12/31/20 15:40 Room Air I & O 12/31/20 12/31/20 01/01/21 14:59 22:59 06:59 Intake Total 960 ml 720 ml Balance 960 ml 720 ml Labs: Laboratory Tests Test 12/31/20 11:47 12/31/20 16:56 12/31/20 19:00 01/01/21 07:49 Glucose (Fingerstick) 159 mg/dL (70-99) H 168 mg/dL (70-99) H 220 mg/dL (70-99) H 191 mg/dL (70-99) H Current Medications: Meds: Laboratory Tests Test 12/31/20 11:47 12/31/20 16:56 12/31/20 19:00 01/01/21 07:49 Glucose (Fingerstick) 159 mg/dL 168 mg/dL 220 mg/dL 191 mg/dL Current Medications Medications (Trade) Dose Ordered Sig/Leonides Route PRN Reason Start Time Stop Time Status Last Admin Dose Admin Multi-Ingredient Ointment (Analgesic [place]) 1 swathi PRN QID PRN TP MUSCLE PAIN 11/21/20 21:00 Al Hydroxide/Mg Hydroxide (Mylanta Plus Xs) 15 ml PRN AFTMEALHC PRN PO DYSPEPSIA 11/21/20 21:00 12/29/20 01:52 Magnesium Hydroxide (Milk Of Magnesia) 2,400 mg PRN QHS PRN PO 1ST CHOICE CONSTIPATION 11/21/20 21:00 Acetaminophen (Tylenol) 650 mg PRN Q4HRS PRN PO MILD PAIN / TEMP > 100.3'F 11/21/20 21:45 12/06/20 22:17 Amoxicillin/ Clavulanate Potassium (Augmentin 875/ 125mg) 1 tab BID PO 11/22/20 09:00 11/24/20 21:01 DC 11/24/20 20:55 Aspirin (Aspirin Enteric Coated) 81 mg DAILY PO 11/22/20 09:00 12/31/20 09:28 Bisacodyl (Dulcolax Tab) 5 mg PRN DAILY PRN PO 2ND CHOICE CONSTIPATION 11/21/20 21:45 Furosemide (Lasix) 40 mg DAILY PO 11/22/20 09:00 12/31/20 09:28 Acetaminophen/ Hydrocodone Bitart (Lortab 5/325) 1 tab PRN BID PRN PO mod-sev PAIN 11/21/20 21:45 12/08/20 17:03 DC 12/08/20 09:20 Ibuprofen (Motrin) 200 mg PRN Q6HRS PRN PO MILD PAIN / TEMP > 100.3'F 11/21/20 21:45 Cancel Albuterol/ Ipratropium (Duoneb) 3 ml PRN BID PRN NEB SHORTNESS OF BREATH 11/21/20 21:45 Levothyroxine Sodium (Synthroid) 112 mcg DAILY06 PO 11/22/20 06:00 01/01/21 05:40 Lorazepam (Ativan) 0.5 mg TID PO 11/21/20 22:00 12/03/20 18:47 DC 12/03/20 13:59 Zolpidem Tartrate (Ambien) 5 mg HS PO 11/21/20 22:00 11/27/20 18:02 DC 11/26/20 20:44 Betamethasone Dipropion Augmented (Betamethasone Dp Aug 0.05% Cream) 1 swathi PRN BID PRN TP RASH 11/21/20 22:15 Multi-Ingred Cream/Lotion/Oil/ Oint (Hydrocerin) 1 swathi PRN BID PRN TP Dry Hands 11/21/20 22:00 Guaifenesin (Robitussin Dm) 10 ml PRN Q8HRS PRN PO COUGH 11/21/20 22:00 12/23/20 08:40 Insulin Human Lispro (HumaLOG) 20 units TIDWMEALS SQ 11/22/20 08:00 12/31/20 17:52 Insulin Glargine (Lantus Syringe) 30 unit BID SQ 11/21/20 22:00 12/31/20 20:37 Magnesium Chloride (Mag Delay) 64 mg DAILY PO 11/22/20 09:00 12/31/20 09:28 Non-Formulary Medication (Menthol (Biofreeze)) 1 swathi QID PRN TP MUSCLE PAIN 11/21/20 21:45 UNV Pantoprazole Sodium (Protonix) 40 mg DAILY PO 11/22/20 09:00 12/31/20 09:28 Oxybutynin Chloride (Ditropan) 5 mg DAILY PO 11/22/20 09:00 12/31/20 09:28 Polyethylene Glycol (miraLAX) 17 gm DAILY PO 11/22/20 09:00 12/31/20 09:30 Potassium Chloride (Klor-Con) 10 meq DAILY PO 11/22/20 09:00 12/31/20 09:30 Propranolol HCl (Inderal) 40 mg DAILY PO 11/22/20 09:00 12/31/20 09:28 Quetiapine Fumarate (SEROquel) 600 mg HS PO 11/21/20 22:15 12/03/20 18:47 DC 12/02/20 20:08 Saliva Substitute (Biotene Moisturizing Mouth) 2 spray PRN TID PRN PO DRY MOUTH 11/21/20 22:15 Non-Formulary Medication (Semaglutide (Ozempic)) 1 mg QFR SQ 11/23/20 16:00 12/09/20 10:20 DC Pentoxifylline (TRENtal) 400 mg TIDWMEALS PO 11/22/20 08:00 12/31/20 12:28 Vitamin D (Vitamin D3) 2,000 unit DAILY PO 11/22/20 09:00 12/31/20 09:29 Lactobacillus Rhamnosus (Culturelle) 1 cap BID PO 11/22/20 09:00 12/31/20 20:34 Mirtazapine (Remeron) 7.5 mg QHS PO 11/27/20 21:00 12/11/20 17:03 DC 12/10/20 20:08 Divalproex Sodium (Depakote Er) 500 mg QHS PO 11/28/20 21:00 12/01/20 17:12 DC 11/30/20 20:45 Divalproex Sodium (Depakote Er) 1,000 mg QHS PO 12/01/20 21:00 12/21/20 19:55 DC 12/20/20 20:28 Bupropion HCl (Wellbutrin Xl) 150 mg DAILY PO 12/03/20 09:00 12/09/20 16:24 DC 12/09/20 08:14 Quetiapine Fumarate (SEROquel) 200 mg TID PO 12/03/20 21:00 12/06/20 11:47 DC 12/06/20 07:48 Clonazepam (KlonoPIN) 0.5 mg TID PO 12/03/20 21:00 12/31/20 20:34 Trazodone HCl (Desyrel) 100 mg PRN QHS PRN PO INSOMNIA, MRX1 12/04/20 19:15 01/01/21 00:20 Risperidone (RisperDAL) 0.5 mg 0900,1300,1700 PO 12/06/20 13:00 12/07/20 17:12 DC 12/07/20 09:00 Risperidone (RisperDAL) 1.5 mg DAILY PO 12/08/20 09:00 12/07/20 19:50 DC Risperidone (RisperDAL) 1.5 mg DAILY PO 12/07/20 20:00 12/09/20 16:24 DC 12/09/20 08:16 Acetaminophen/ Hydrocodone Bitart (Lortab 5/325) 1 tab PRN TID PRN PO mod-sev PAIN 12/08/20 17:00 12/31/20 21:21 Risperidone (RisperDAL) 2 mg DAILY PO 12/10/20 09:00 12/13/20 12:47 DC 12/13/20 09:29 Mirtazapine (Remeron) 15 mg QHS PO 12/11/20 21:00 12/31/20 20:34 Risperidone (RisperDAL) 3 mg DAILY PO 12/14/20 09:00 12/23/20 07:12 DC 12/22/20 08:31 Risperidone (RisperDAL CONSTA) 25 mg Q2WKS IM 12/14/20 09:00 12/28/20 09:01 Quetiapine Fumarate (SEROquel) 50 mg PRN Q2HR PRN PO ANXIETY/AGITATION, 2ND CHOICE 12/16/20 04:15 12/16/20 04:41 Lorazepam (Ativan) 0.5 mg PRN Q2HR PRN PO ANXIETY/AGITATION, 1ST CHOICE 12/16/20 04:15 12/23/20 17:16 Trazodone HCl (Desyrel) 25 mg 0900,1300,1700 PO 12/18/20 09:00 12/23/20 16:59 DC 12/23/20 12:29 Temazepam (Restoril) 15 mg PRN QHS PRN PO INSOMNIA, MRX1, 1ST CHOICE 12/19/20 18:15 12/22/20 09:00 DC 12/21/20 19:59 Divalproex Sodium (Depakote Sprinkles) 500 mg BID PO 12/21/20 21:00 12/31/20 20:34 Risperidone (RisperDAL) 3 mg DAILY PO 12/23/20 09:00 12/31/20 09:29 Trazodone HCl (Desyrel) 25 mg DAILY PO 12/24/20 09:00 12/31/20 09:29 Trazodone HCl (Desyrel) 50 mg 1300,1700 PO 12/23/20 17:00 12/31/20 17:50 I have reviewed the current psychotropics carefully including drug interactions. Risk benefit ratio favors no change other than as noted in my dictated progress note. Diagnosis: Problems: (1) Mild cognitive impairment (2) Schizoaffective disorder, bipolar type (3) Anxiety disorder, unspecified (4) Impulse disorder, unspecified (5) Bipolar disorder, curr episode mixed, severe, with psychotic features RAJIV VELAZQUEZ MD Jan 01, 2021 08:22
[2021-01-01] MEDS: INSULIN LISPRO 300 UNITS/3 ML VIAL. SQ SCH ×3 (08:24→17:57)
[2021-01-01] MEDS: INSULIN GLARGINE SYRINGE. SQ SCH ×2 (08:27→20:20)
[2021-01-01 15:49] VITALS: BP 110/72
[2021-01-01] MEDS: MIRTAZAPINE 15 MG TABLET PO SCH (20:17)
[2021-01-01] MEDS: HYDROcodone/APAP 5/325MG 1 TAB TABLET PO PRN (20:19)
--- NOTE | 2021-01-01 21:24 | PDOC ---
Exam Note: Donte Note: Please also refer to the separate dictated note~for this date of service dictated separately.~Patient seen individually. Discussed the patient with Nursing staff reviewed the chart.~Reviewed interim history and current functioning. Reviewed vital signs,~Labs/ Radiology~and current medications noted below. Continue current treatment with the changes noted in the dictated addendum note Assessment: Vital Signs/I&O: Vital Signs Date Time Temp Pulse Resp B/P (MAP) Pulse Ox O2 Delivery O2 Flow Rate FiO2 01/01/21 20:19 98 01/01/21 15:49 98.4 66 20 110/72 (85) 12/31/20 15:40 Room Air I & O 12/31/20 12/31/20 01/01/21 15:00 23:00 07:00 Intake Total 960 ml 720 ml Balance 960 ml 720 ml Labs: Laboratory Tests Test 01/01/21 05:30 01/01/21 07:49 01/01/21 11:26 Coronavirus (PCR) Not detected (Not Detected) Glucose (Fingerstick) 191 mg/dL (70-99) H 268 mg/dL (70-99) H Current Medications: Meds: Laboratory Tests Test 01/01/21 05:30 01/01/21 07:49 01/01/21 11:26 Coronavirus (PCR) Not detected Glucose (Fingerstick) 191 mg/dL 268 mg/dL Current Medications Medications (Trade) Dose Ordered Sig/Leonides Route PRN Reason Start Time Stop Time Status Last Admin Dose Admin Multi-Ingredient Ointment (Analgesic [place]) 1 swathi PRN QID PRN TP MUSCLE PAIN 11/21/20 21:00 Al Hydroxide/Mg Hydroxide (Mylanta Plus Xs) 15 ml PRN AFTMEALHC PRN PO DYSPEPSIA 11/21/20 21:00 12/29/20 01:52 Magnesium Hydroxide (Milk Of Magnesia) 2,400 mg PRN QHS PRN PO 1ST CHOICE CONSTIPATION 11/21/20 21:00 Acetaminophen (Tylenol) 650 mg PRN Q4HRS PRN PO MILD PAIN / TEMP > 100.3'F 11/21/20 21:45 12/06/20 22:17 Amoxicillin/ Clavulanate Potassium (Augmentin 875/ 125mg) 1 tab BID PO 11/22/20 09:00 11/24/20 21:01 DC 11/24/20 20:55 Aspirin (Aspirin Enteric Coated) 81 mg DAILY PO 11/22/20 09:00 01/01/21 08:15 Bisacodyl (Dulcolax Tab) 5 mg PRN DAILY PRN PO 2ND CHOICE CONSTIPATION 11/21/20 21:45 Furosemide (Lasix) 40 mg DAILY PO 11/22/20 09:00 01/01/21 08:16 Acetaminophen/ Hydrocodone Bitart (Lortab 5/325) 1 tab PRN BID PRN PO mod-sev PAIN 11/21/20 21:45 12/08/20 17:03 DC 12/08/20 09:20 Ibuprofen (Motrin) 200 mg PRN Q6HRS PRN PO MILD PAIN / TEMP > 100.3'F 11/21/20 21:45 Cancel Albuterol/ Ipratropium (Duoneb) 3 ml PRN BID PRN NEB SHORTNESS OF BREATH 11/21/20 21:45 Levothyroxine Sodium (Synthroid) 112 mcg DAILY06 PO 11/22/20 06:00 01/01/21 05:40 Lorazepam (Ativan) 0.5 mg TID PO 11/21/20 22:00 12/03/20 18:47 DC 12/03/20 13:59 Zolpidem Tartrate (Ambien) 5 mg HS PO 11/21/20 22:00 11/27/20 18:02 DC 11/26/20 20:44 Betamethasone Dipropion Augmented (Betamethasone Dp Aug 0.05% Cream) 1 swathi PRN BID PRN TP RASH 11/21/20 22:15 Multi-Ingred Cream/Lotion/Oil/ Oint (Hydrocerin) 1 swatih PRN BID PRN TP Dry Hands 11/21/20 22:00 Guaifenesin (Robitussin Dm) 10 ml PRN Q8HRS PRN PO COUGH 11/21/20 22:00 12/23/20 08:40 Insulin Human Lispro (HumaLOG) 20 units TIDWMEALS SQ 11/22/20 08:00 01/01/21 17:57 Insulin Glargine (Lantus Syringe) 30 unit BID SQ 11/21/20 22:00 01/01/21 20:20 Magnesium Chloride (Mag Delay) 64 mg DAILY PO 11/22/20 09:00 01/01/21 08:16 Non-Formulary Medication (Menthol (Biofreeze)) 1 swathi QID PRN TP MUSCLE PAIN 11/21/20 21:45 UNV Pantoprazole Sodium (Protonix) 40 mg DAILY PO 11/22/20 09:00 01/01/21 08:16 Oxybutynin Chloride (Ditropan) 5 mg DAILY PO 11/22/20 09:00 01/01/21 08:15 Polyethylene Glycol (miraLAX) 17 gm DAILY PO 11/22/20 09:00 01/01/21 08:14 Potassium Chloride (Klor-Con) 10 meq DAILY PO 11/22/20 09:00 01/01/21 08:17 Propranolol HCl (Inderal) 40 mg DAILY PO 11/22/20 09:00 01/01/21 08:21 Quetiapine Fumarate (SEROquel) 600 mg HS PO 11/21/20 22:15 12/03/20 18:47 DC 12/02/20 20:08 Saliva Substitute (Biotene Moisturizing Mouth) 2 spray PRN TID PRN PO DRY MOUTH 11/21/20 22:15 Non-Formulary Medication (Semaglutide (Ozempic)) 1 mg QFR SQ 11/23/20 16:00 12/09/20 10:20 DC Pentoxifylline (TRENtal) 400 mg TIDWMEALS PO 11/22/20 08:00 01/01/21 17:52 Vitamin D (Vitamin D3) 2,000 unit DAILY PO 11/22/20 09:00 01/01/21 08:17 Lactobacillus Rhamnosus (Culturelle) 1 cap BID PO 11/22/20 09:00 01/01/21 20:17 Mirtazapine (Remeron) 7.5 mg QHS PO 11/27/20 21:00 12/11/20 17:03 DC 12/10/20 20:08 Divalproex Sodium (Depakote Er) 500 mg QHS PO 11/28/20 21:00 12/01/20 17:12 DC 11/30/20 20:45 Divalproex Sodium (Depakote Er) 1,000 mg QHS PO 12/01/20 21:00 12/21/20 19:55 DC 12/20/20 20:28 Bupropion HCl (Wellbutrin Xl) 150 mg DAILY PO 12/03/20 09:00 12/09/20 16:24 DC 12/09/20 08:14 Quetiapine Fumarate (SEROquel) 200 mg TID PO 12/03/20 21:00 12/06/20 11:47 DC 12/06/20 07:48 Clonazepam (KlonoPIN) 0.5 mg TID PO 12/03/20 21:00 01/01/21 20:17 Trazodone HCl (Desyrel) 100 mg PRN QHS PRN PO INSOMNIA, MRX1 12/04/20 19:15 01/01/21 20:19 Risperidone (RisperDAL) 0.5 mg 0900,1300,1700 PO 12/06/20 13:00 12/07/20 17:12 DC 12/07/20 09:00 Risperidone (RisperDAL) 1.5 mg DAILY PO 12/08/20 09:00 12/07/20 19:50 DC Risperidone (RisperDAL) 1.5 mg DAILY PO 12/07/20 20:00 12/09/20 16:24 DC 12/09/20 08:16 Acetaminophen/ Hydrocodone Bitart (Lortab 5/325) 1 tab PRN TID PRN PO mod-sev PAIN 12/08/20 17:00 01/01/21 20:19 Risperidone (RisperDAL) 2 mg DAILY PO 12/10/20 09:00 12/13/20 12:47 DC 12/13/20 09:29 Mirtazapine (Remeron) 15 mg QHS PO 12/11/20 21:00 01/01/21 20:17 Risperidone (RisperDAL) 3 mg DAILY PO 12/14/20 09:00 12/23/20 07:12 DC 12/22/20 08:31 Risperidone (RisperDAL CONSTA) 25 mg Q2WKS IM 12/14/20 09:00 12/28/20 09:01 Quetiapine Fumarate (SEROquel) 50 mg PRN Q2HR PRN PO ANXIETY/AGITATION, 2ND CHOICE 12/16/20 04:15 12/16/20 04:41 Lorazepam (Ativan) 0.5 mg PRN Q2HR PRN PO ANXIETY/AGITATION, 1ST CHOICE 12/16/20 04:15 12/23/20 17:16 Trazodone HCl (Desyrel) 25 mg 0900,1300,1700 PO 12/18/20 09:00 12/23/20 16:59 DC 12/23/20 12:29 Temazepam (Restoril) 15 mg PRN QHS PRN PO INSOMNIA, MRX1, 1ST CHOICE 12/19/20 18:15 12/22/20 09:00 DC 12/21/20 19:59 Divalproex Sodium (Depakote Sprinkles) 500 mg BID PO 12/21/20 21:00 01/01/21 20:17 Risperidone (RisperDAL) 3 mg DAILY PO 12/23/20 09:00 01/01/21 08:17 Trazodone HCl (Desyrel) 25 mg DAILY PO 12/24/20 09:00 01/01/21 08:17 Trazodone HCl (Desyrel) 50 mg 1300,1700 PO 12/23/20 17:00 01/01/21 17:52 I have reviewed the current psychotropics carefully including drug interactions. Risk benefit ratio favors no change other than as noted in my dictated progress note. Diagnosis: Problems: (1) Mild cognitive impairment (2) Schizoaffective disorder, bipolar type (3) Anxiety disorder, unspecified (4) Impulse disorder, unspecified (5) Bipolar disorder, curr episode mixed, severe, with psychotic features RAJIV VELAZQUEZ MD Jan 01, 2021 21:24
[2021-01-02] MEDS: LEVOTHYROXINE 112 MCG TABLET PO SCH (05:32)
[2021-01-02 05:56] VITALS: BP 127/77
--- NOTE | 2021-01-02 08:36 | PDOC ---
Exam Note: Donte Note: This note is a late entry for 12/31/2020 covers elements not covered in my initial note. Subjective: The patient was seen face to face in the evening of 12/31/2020 with Iftikhar COPELAND. She slept 6 hours previous night. The patient has been flat, withdrawn, less psychotic, paranoid. Review of Systems: No CV, , pulmonary, eye, ENT system symptoms on review. Mental Status Exam: The patient is alert and oriented. She was not very verbal individually though she did want me to come back for a second time rounds to meet her. She wanted to discuss her discharge plans which we did. Speech has some latency. Abstraction is fair. Computation is impaired. Language function is intact. Mood and affect withdrawn. She is less paranoid. No suicidal or homicidal ideation. Laboratory Data: Reviewed. Impression: Schizoaffective disorder, bipolar type, mixed with psychotic features. Anxiety disorder unspecified. Impulse control disorder unspecified. Plan: No change from initial note. Assessment: Vital Signs/I&O: Vital Signs Date Time Temp Pulse Resp B/P (MAP) Pulse Ox O2 Delivery O2 Flow Rate FiO2 01/02/21 05:56 97.7 70 20 127/77 (94) 98 12/31/20 15:40 Room Air I & O 01/01/21 01/01/21 01/02/21 15:00 23:00 07:00 Intake Total 840 ml 960 ml Balance 840 ml 960 ml Labs: Laboratory Tests Test 01/01/21 11:26 Glucose (Fingerstick) 268 mg/dL (70-99) H Current Medications: Meds: Laboratory Tests Test 01/01/21 11:26 Glucose (Fingerstick) 268 mg/dL Current Medications Medications (Trade) Dose Ordered Sig/Leonides Route PRN Reason Start Time Stop Time Status Last Admin Dose Admin Multi-Ingredient Ointment (Analgesic [place]) 1 swathi PRN QID PRN TP MUSCLE PAIN 11/21/20 21:00 Al Hydroxide/Mg Hydroxide (Mylanta Plus Xs) 15 ml PRN AFTMEALHC PRN PO DYSPEPSIA 11/21/20 21:00 12/29/20 01:52 Magnesium Hydroxide (Milk Of Magnesia) 2,400 mg PRN QHS PRN PO 1ST CHOICE CONSTIPATION 11/21/20 21:00 Acetaminophen (Tylenol) 650 mg PRN Q4HRS PRN PO MILD PAIN / TEMP > 100.3'F 11/21/20 21:45 12/06/20 22:17 Amoxicillin/ Clavulanate Potassium (Augmentin 875/ 125mg) 1 tab BID PO 11/22/20 09:00 11/24/20 21:01 DC 11/24/20 20:55 Aspirin (Aspirin Enteric Coated) 81 mg DAILY PO 11/22/20 09:00 01/01/21 08:15 Bisacodyl (Dulcolax Tab) 5 mg PRN DAILY PRN PO 2ND CHOICE CONSTIPATION 11/21/20 21:45 Furosemide (Lasix) 40 mg DAILY PO 11/22/20 09:00 01/01/21 08:16 Acetaminophen/ Hydrocodone Bitart (Lortab 5/325) 1 tab PRN BID PRN PO mod-sev PAIN 11/21/20 21:45 12/08/20 17:03 DC 12/08/20 09:20 Ibuprofen (Motrin) 200 mg PRN Q6HRS PRN PO MILD PAIN / TEMP > 100.3'F 11/21/20 21:45 Cancel Albuterol/ Ipratropium (Duoneb) 3 ml PRN BID PRN NEB SHORTNESS OF BREATH 11/21/20 21:45 Levothyroxine Sodium (Synthroid) 112 mcg DAILY06 PO 11/22/20 06:00 01/02/21 05:32 Lorazepam (Ativan) 0.5 mg TID PO 11/21/20 22:00 12/03/20 18:47 DC 12/03/20 13:59 Zolpidem Tartrate (Ambien) 5 mg HS PO 11/21/20 22:00 11/27/20 18:02 DC 11/26/20 20:44 Betamethasone Dipropion Augmented (Betamethasone Dp Aug 0.05% Cream) 1 swathi PRN BID PRN TP RASH 11/21/20 22:15 Multi-Ingred Cream/Lotion/Oil/ Oint (Hydrocerin) 1 swathi PRN BID PRN TP Dry Hands 11/21/20 22:00 Guaifenesin (Robitussin Dm) 10 ml PRN Q8HRS PRN PO COUGH 11/21/20 22:00 12/23/20 08:40 Insulin Human Lispro (HumaLOG) 20 units TIDWMEALS SQ 11/22/20 08:00 01/01/21 17:57 Insulin Glargine (Lantus Syringe) 30 unit BID SQ 11/21/20 22:00 01/01/21 20:20 Magnesium Chloride (Mag Delay) 64 mg DAILY PO 11/22/20 09:00 01/01/21 08:16 Non-Formulary Medication (Menthol (Biofreeze)) 1 swathi QID PRN TP MUSCLE PAIN 11/21/20 21:45 UNV Pantoprazole Sodium (Protonix) 40 mg DAILY PO 11/22/20 09:00 01/01/21 08:16 Oxybutynin Chloride (Ditropan) 5 mg DAILY PO 11/22/20 09:00 01/01/21 08:15 Polyethylene Glycol (miraLAX) 17 gm DAILY PO 11/22/20 09:00 01/01/21 08:14 Potassium Chloride (Klor-Con) 10 meq DAILY PO 11/22/20 09:00 01/01/21 08:17 Propranolol HCl (Inderal) 40 mg DAILY PO 11/22/20 09:00 01/01/21 08:21 Quetiapine Fumarate (SEROquel) 600 mg HS PO 11/21/20 22:15 12/03/20 18:47 DC 12/02/20 20:08 Saliva Substitute (Biotene Moisturizing Mouth) 2 spray PRN TID PRN PO DRY MOUTH 11/21/20 22:15 Non-Formulary Medication (Semaglutide (Ozempic)) 1 mg QFR SQ 11/23/20 16:00 12/09/20 10:20 DC Pentoxifylline (TRENtal) 400 mg TIDWMEALS PO 11/22/20 08:00 01/01/21 17:52 Vitamin D (Vitamin D3) 2,000 unit DAILY PO 11/22/20 09:00 01/01/21 08:17 Lactobacillus Rhamnosus (Culturelle) 1 cap BID PO 11/22/20 09:00 01/01/21 20:17 Mirtazapine (Remeron) 7.5 mg QHS PO 11/27/20 21:00 12/11/20 17:03 DC 12/10/20 20:08 Divalproex Sodium (Depakote Er) 500 mg QHS PO 11/28/20 21:00 12/01/20 17:12 DC 11/30/20 20:45 Divalproex Sodium (Depakote Er) 1,000 mg QHS PO 12/01/20 21:00 12/21/20 19:55 DC 12/20/20 20:28 Bupropion HCl (Wellbutrin Xl) 150 mg DAILY PO 12/03/20 09:00 12/09/20 16:24 DC 12/09/20 08:14 Quetiapine Fumarate (SEROquel) 200 mg TID PO 12/03/20 21:00 12/06/20 11:47 DC 12/06/20 07:48 Clonazepam (KlonoPIN) 0.5 mg TID PO 12/03/20 21:00 01/01/21 20:17 Trazodone HCl (Desyrel) 100 mg PRN QHS PRN PO INSOMNIA, MRX1 12/04/20 19:15 01/01/21 20:19 Risperidone (RisperDAL) 0.5 mg 0900,1300,1700 PO 12/06/20 13:00 12/07/20 17:12 DC 12/07/20 09:00 Risperidone (RisperDAL) 1.5 mg DAILY PO 12/08/20 09:00 12/07/20 19:50 DC Risperidone (RisperDAL) 1.5 mg DAILY PO 12/07/20 20:00 12/09/20 16:24 DC 12/09/20 08:16 Acetaminophen/ Hydrocodone Bitart (Lortab 5/325) 1 tab PRN TID PRN PO mod-sev PAIN 12/08/20 17:00 01/01/21 20:19 Risperidone (RisperDAL) 2 mg DAILY PO 12/10/20 09:00 12/13/20 12:47 DC 12/13/20 09:29 Mirtazapine (Remeron) 15 mg QHS PO 12/11/20 21:00 01/01/21 20:17 Risperidone (RisperDAL) 3 mg DAILY PO 12/14/20 09:00 12/23/20 07:12 DC 12/22/20 08:31 Risperidone (RisperDAL CONSTA) 25 mg Q2WKS IM 12/14/20 09:00 12/28/20 09:01 Quetiapine Fumarate (SEROquel) 50 mg PRN Q2HR PRN PO ANXIETY/AGITATION, 2ND CHOICE 12/16/20 04:15 12/16/20 04:41 Lorazepam (Ativan) 0.5 mg PRN Q2HR PRN PO ANXIETY/AGITATION, 1ST CHOICE 12/16/20 04:15 12/23/20 17:16 Trazodone HCl (Desyrel) 25 mg 0900,1300,1700 PO 12/18/20 09:00 12/23/20 16:59 DC 12/23/20 12:29 Temazepam (Restoril) 15 mg PRN QHS PRN PO INSOMNIA, MRX1, 1ST CHOICE 12/19/20 18:15 12/22/20 09:00 DC 12/21/20 19:59 Divalproex Sodium (Depakote Sprinkles) 500 mg BID PO 12/21/20 21:00 01/01/21 20:17 Risperidone (RisperDAL) 3 mg DAILY PO 12/23/20 09:00 01/01/21 08:17 Trazodone HCl (Desyrel) 25 mg DAILY PO 12/24/20 09:00 01/01/21 08:17 Trazodone HCl (Desyrel) 50 mg 1300,1700 PO 12/23/20 17:00 01/01/21 17:52 I have reviewed the current psychotropics carefully including drug interactions. Risk benefit ratio favors no change other than as noted in my dictated progress note. Diagnosis: Problems: (1) Mild cognitive impairment (2) Schizoaffective disorder, bipolar type (3) Anxiety disorder, unspecified (4) Impulse disorder, unspecified (5) Bipolar disorder, curr episode mixed, severe, with psychotic features RAJIV VELAZQUEZ MD Jan 02, 2021 08:36
[2021-01-02] MEDS: DIVALPROEX 125 MG CAP.SPRINK PO SCH ×2 (08:45→20:36)
[2021-01-02] MEDS: POLYETHYLENE GLYCOL 3350 17 GM PACKET. PO SCH (08:45)
[2021-01-02] MEDS: ASPIRIN ENTERIC COATED 81 MG TABLET.DR. PO SCH (08:45)
[2021-01-02] MEDS: POTASSIUM CHLORIDE 10 MEQ TABLET.ER. PO SCH (08:45)
[2021-01-02] MEDS: LACTOBACILLUS RHAMNOSUS GG 1 CAPSULE. PO SCH ×2 (08:45→20:35)
[2021-01-02] MEDS: OXYBUTYNIN CHLORIDE 5 MG TABLET PO SCH (08:45)
[2021-01-02] MEDS: risperiDONE 1 MG TABLET. PO SCH (08:45)
[2021-01-02] MEDS: PANTOPRAZOLE 40 MG TABLET. PO SCH (08:45)
[2021-01-02] MEDS: PENTOXIFYLLINE ER 400 MG TABLET.ER. PO SCH ×3 (08:45→17:00)
[2021-01-02] MEDS: traZODone 50 MG TABLET. PO SCH ×3 (08:46→17:33)
[2021-01-02] MEDS: FUROSEMIDE 40 MG TABLET PO SCH (08:46)
[2021-01-02] MEDS: MAGNESIUM CHLORIDE ER 64 MG TABLET.ER PO SCH (08:46)
[2021-01-02] MEDS: CHOLECALCIFEROL (VITAMIN D3) 1,000 UNIT TABLET PO SCH (08:46)
[2021-01-02] MEDS: clonazePAM 0.5 MG TABLET PO SCH ×3 (08:46→20:35)
[2021-01-02] MEDS: PROPRANOLOL 20 MG TABLET. PO SCH (08:46)
[2021-01-02] MEDS: INSULIN GLARGINE SYRINGE. SQ SCH ×2 (09:02→20:56)
[2021-01-02] MEDS: INSULIN LISPRO 300 UNITS/3 ML VIAL. SQ SCH ×3 (09:02→17:35)
--- NOTE | 2021-01-02 09:03 | PDOC ---
Exam Note: Donte Note: This note is a late entry for 01/01/2021 covers elements not covered in my initial note. Subjective: The patient was seen face to face in the evening of 01/01/2021 with Estela COPELAND. She slept 4-1/4 hours previous night. The patient did well, was quite somatic previous night, medication seeking, pleasant today. Review of Systems: No CV, , pulmonary, eye, ENT system symptoms on review. Mental Status Exam: The patient is reasonably oriented. Speech is coherent. Abstraction is fair. Computation is impaired. Language function is intact. Mood and affect paranoid, still withdrawn. Laboratory Data: Reviewed. Impression: Schizoaffective disorder, bipolar type, mixed with psychotic features. Anxiety disorder unspecified. Impulse control disorder unspecified. Plan: No change from initial note. Assessment: Vital Signs/I&O: Vital Signs Date Time Temp Pulse Resp B/P (MAP) Pulse Ox O2 Delivery O2 Flow Rate FiO2 01/02/21 08:46 70 127/77 01/02/21 05:56 97.7 20 98 12/31/20 15:40 Room Air I & O 01/01/21 01/01/21 01/02/21 15:00 23:00 07:00 Intake Total 840 ml 960 ml Balance 840 ml 960 ml Labs: Laboratory Tests Test 01/01/21 11:26 Glucose (Fingerstick) 268 mg/dL (70-99) H Current Medications: Meds: Laboratory Tests Test 01/01/21 11:26 Glucose (Fingerstick) 268 mg/dL Current Medications Medications (Trade) Dose Ordered Sig/Leonides Route PRN Reason Start Time Stop Time Status Last Admin Dose Admin Multi-Ingredient Ointment (Analgesic [place]) 1 swathi PRN QID PRN TP MUSCLE PAIN 11/21/20 21:00 Al Hydroxide/Mg Hydroxide (Mylanta Plus Xs) 15 ml PRN AFTMEALHC PRN PO DYSPEPSIA 11/21/20 21:00 12/29/20 01:52 Magnesium Hydroxide (Milk Of Magnesia) 2,400 mg PRN QHS PRN PO 1ST CHOICE CONSTIPATION 11/21/20 21:00 Acetaminophen (Tylenol) 650 mg PRN Q4HRS PRN PO MILD PAIN / TEMP > 100.3'F 11/21/20 21:45 12/06/20 22:17 Amoxicillin/ Clavulanate Potassium (Augmentin 875/ 125mg) 1 tab BID PO 11/22/20 09:00 11/24/20 21:01 DC 11/24/20 20:55 Aspirin (Aspirin Enteric Coated) 81 mg DAILY PO 11/22/20 09:00 01/02/21 08:45 Bisacodyl (Dulcolax Tab) 5 mg PRN DAILY PRN PO 2ND CHOICE CONSTIPATION 11/21/20 21:45 Furosemide (Lasix) 40 mg DAILY PO 11/22/20 09:00 01/02/21 08:46 Acetaminophen/ Hydrocodone Bitart (Lortab 5/325) 1 tab PRN BID PRN PO mod-sev PAIN 11/21/20 21:45 12/08/20 17:03 DC 12/08/20 09:20 Ibuprofen (Motrin) 200 mg PRN Q6HRS PRN PO MILD PAIN / TEMP > 100.3'F 11/21/20 21:45 Cancel Albuterol/ Ipratropium (Duoneb) 3 ml PRN BID PRN NEB SHORTNESS OF BREATH 11/21/20 21:45 Levothyroxine Sodium (Synthroid) 112 mcg DAILY06 PO 11/22/20 06:00 01/02/21 05:32 Lorazepam (Ativan) 0.5 mg TID PO 11/21/20 22:00 12/03/20 18:47 DC 12/03/20 13:59 Zolpidem Tartrate (Ambien) 5 mg HS PO 11/21/20 22:00 11/27/20 18:02 DC 11/26/20 20:44 Betamethasone Dipropion Augmented (Betamethasone Dp Aug 0.05% Cream) 1 swathi PRN BID PRN TP RASH 11/21/20 22:15 Multi-Ingred Cream/Lotion/Oil/ Oint (Hydrocerin) 1 swathi PRN BID PRN TP Dry Hands 11/21/20 22:00 Guaifenesin (Robitussin Dm) 10 ml PRN Q8HRS PRN PO COUGH 11/21/20 22:00 12/23/20 08:40 Insulin Human Lispro (HumaLOG) 20 units TIDWMEALS SQ 11/22/20 08:00 01/01/21 17:57 Insulin Glargine (Lantus Syringe) 30 unit BID SQ 11/21/20 22:00 01/01/21 20:20 Magnesium Chloride (Mag Delay) 64 mg DAILY PO 11/22/20 09:00 01/02/21 08:46 Non-Formulary Medication (Menthol (Biofreeze)) 1 swathi QID PRN TP MUSCLE PAIN 11/21/20 21:45 UNV Pantoprazole Sodium (Protonix) 40 mg DAILY PO 11/22/20 09:00 01/02/21 08:45 Oxybutynin Chloride (Ditropan) 5 mg DAILY PO 11/22/20 09:00 01/02/21 08:45 Polyethylene Glycol (miraLAX) 17 gm DAILY PO 11/22/20 09:00 01/02/21 08:45 Potassium Chloride (Klor-Con) 10 meq DAILY PO 11/22/20 09:00 01/02/21 08:45 Propranolol HCl (Inderal) 40 mg DAILY PO 11/22/20 09:00 01/02/21 08:46 Quetiapine Fumarate (SEROquel) 600 mg HS PO 11/21/20 22:15 12/03/20 18:47 DC 12/02/20 20:08 Saliva Substitute (Biotene Moisturizing Mouth) 2 spray PRN TID PRN PO DRY MOUTH 11/21/20 22:15 Non-Formulary Medication (Semaglutide (Ozempic)) 1 mg QFR SQ 11/23/20 16:00 12/09/20 10:20 DC Pentoxifylline (TRENtal) 400 mg TIDWMEALS PO 11/22/20 08:00 01/02/21 08:45 Vitamin D (Vitamin D3) 2,000 unit DAILY PO 11/22/20 09:00 01/02/21 08:46 Lactobacillus Rhamnosus (Culturelle) 1 cap BID PO 11/22/20 09:00 01/02/21 08:45 Mirtazapine (Remeron) 7.5 mg QHS PO 11/27/20 21:00 12/11/20 17:03 DC 12/10/20 20:08 Divalproex Sodium (Depakote Er) 500 mg QHS PO 11/28/20 21:00 12/01/20 17:12 DC 11/30/20 20:45 Divalproex Sodium (Depakote Er) 1,000 mg QHS PO 12/01/20 21:00 12/21/20 19:55 DC 12/20/20 20:28 Bupropion HCl (Wellbutrin Xl) 150 mg DAILY PO 12/03/20 09:00 12/09/20 16:24 DC 12/09/20 08:14 Quetiapine Fumarate (SEROquel) 200 mg TID PO 12/03/20 21:00 12/06/20 11:47 DC 12/06/20 07:48 Clonazepam (KlonoPIN) 0.5 mg TID PO 12/03/20 21:00 01/02/21 08:46 Trazodone HCl (Desyrel) 100 mg PRN QHS PRN PO INSOMNIA, MRX1 12/04/20 19:15 01/01/21 20:19 Risperidone (RisperDAL) 0.5 mg 0900,1300,1700 PO 12/06/20 13:00 12/07/20 17:12 DC 12/07/20 09:00 Risperidone (RisperDAL) 1.5 mg DAILY PO 12/08/20 09:00 12/07/20 19:50 DC Risperidone (RisperDAL) 1.5 mg DAILY PO 12/07/20 20:00 12/09/20 16:24 DC 12/09/20 08:16 Acetaminophen/ Hydrocodone Bitart (Lortab 5/325) 1 tab PRN TID PRN PO mod-sev PAIN 12/08/20 17:00 01/01/21 20:19 Risperidone (RisperDAL) 2 mg DAILY PO 12/10/20 09:00 12/13/20 12:47 DC 12/13/20 09:29 Mirtazapine (Remeron) 15 mg QHS PO 12/11/20 21:00 01/01/21 20:17 Risperidone (RisperDAL) 3 mg DAILY PO 12/14/20 09:00 12/23/20 07:12 DC 12/22/20 08:31 Risperidone (RisperDAL CONSTA) 25 mg Q2WKS IM 12/14/20 09:00 12/28/20 09:01 Quetiapine Fumarate (SEROquel) 50 mg PRN Q2HR PRN PO ANXIETY/AGITATION, 2ND CHOICE 12/16/20 04:15 12/16/20 04:41 Lorazepam (Ativan) 0.5 mg PRN Q2HR PRN PO ANXIETY/AGITATION, 1ST CHOICE 12/16/20 04:15 12/23/20 17:16 Trazodone HCl (Desyrel) 25 mg 0900,1300,1700 PO 12/18/20 09:00 12/23/20 16:59 DC 12/23/20 12:29 Temazepam (Restoril) 15 mg PRN QHS PRN PO INSOMNIA, MRX1, 1ST CHOICE 12/19/20 18:15 12/22/20 09:00 DC 12/21/20 19:59 Divalproex Sodium (Depakote Sprinkles) 500 mg BID PO 12/21/20 21:00 01/02/21 08:45 Risperidone (RisperDAL) 3 mg DAILY PO 12/23/20 09:00 01/02/21 08:45 Trazodone HCl (Desyrel) 25 mg DAILY PO 12/24/20 09:00 01/02/21 08:46 Trazodone HCl (Desyrel) 50 mg 1300,1700 PO 12/23/20 17:00 01/01/21 17:52 I have reviewed the current psychotropics carefully including drug interactions. Risk benefit ratio favors no change other than as noted in my dictated progress note. Diagnosis: Problems: (1) Mild cognitive impairment (2) Schizoaffective disorder, bipolar type (3) Anxiety disorder, unspecified (4) Impulse disorder, unspecified (5) Bipolar disorder, curr episode mixed, severe, with psychotic features RAJIV VELAZQUEZ MD Jan 02, 2021 09:03
[2021-01-02 16:09] VITALS: BP 140/81
[2021-01-02] MEDS: HYDROcodone/APAP 5/325MG 1 TAB TABLET PO PRN (20:35)
[2021-01-02] MEDS: MIRTAZAPINE 15 MG TABLET PO SCH (20:35)
--- NOTE | 2021-01-02 21:16 | PDOC ---
Exam Note: Donte Note: Please also refer to the separate dictated note~for this date of service dictated separately.~Patient seen individually. Discussed the patient with Nursing staff reviewed the chart.~Reviewed interim history and current functioning. Reviewed vital signs,~Labs/ Radiology~and current medications noted below. Continue current treatment with the changes noted in the dictated addendum note Assessment: Vital Signs/I&O: Vital Signs Date Time Temp Pulse Resp B/P (MAP) Pulse Ox O2 Delivery O2 Flow Rate FiO2 01/02/21 20:35 98 01/02/21 16:09 97.0 67 20 140/81 (100) 12/31/20 15:40 Room Air I & O 01/01/21 01/01/21 01/02/21 15:00 23:00 07:00 Intake Total 840 ml 960 ml Balance 840 ml 960 ml Current Medications: Meds: Current Medications Medications (Trade) Dose Ordered Sig/Leonides Route PRN Reason Start Time Stop Time Status Last Admin Dose Admin Multi-Ingredient Ointment (Analgesic [place]) 1 swathi PRN QID PRN TP MUSCLE PAIN 11/21/20 21:00 Al Hydroxide/Mg Hydroxide (Mylanta Plus Xs) 15 ml PRN AFTMEALHC PRN PO DYSPEPSIA 11/21/20 21:00 12/29/20 01:52 Magnesium Hydroxide (Milk Of Magnesia) 2,400 mg PRN QHS PRN PO 1ST CHOICE CONSTIPATION 11/21/20 21:00 Acetaminophen (Tylenol) 650 mg PRN Q4HRS PRN PO MILD PAIN / TEMP > 100.3'F 11/21/20 21:45 12/06/20 22:17 Amoxicillin/ Clavulanate Potassium (Augmentin 875/ 125mg) 1 tab BID PO 11/22/20 09:00 11/24/20 21:01 DC 11/24/20 20:55 Aspirin (Aspirin Enteric Coated) 81 mg DAILY PO 11/22/20 09:00 01/02/21 08:45 Bisacodyl (Dulcolax Tab) 5 mg PRN DAILY PRN PO 2ND CHOICE CONSTIPATION 11/21/20 21:45 Furosemide (Lasix) 40 mg DAILY PO 11/22/20 09:00 01/02/21 08:46 Acetaminophen/ Hydrocodone Bitart (Lortab 5/325) 1 tab PRN BID PRN PO mod-sev PAIN 11/21/20 21:45 12/08/20 17:03 DC 12/08/20 09:20 Ibuprofen (Motrin) 200 mg PRN Q6HRS PRN PO MILD PAIN / TEMP > 100.3'F 11/21/20 21:45 Cancel Albuterol/ Ipratropium (Duoneb) 3 ml PRN BID PRN NEB SHORTNESS OF BREATH 11/21/20 21:45 Levothyroxine Sodium (Synthroid) 112 mcg DAILY06 PO 11/22/20 06:00 01/02/21 05:32 Lorazepam (Ativan) 0.5 mg TID PO 11/21/20 22:00 12/03/20 18:47 DC 12/03/20 13:59 Zolpidem Tartrate (Ambien) 5 mg HS PO 11/21/20 22:00 11/27/20 18:02 DC 11/26/20 20:44 Betamethasone Dipropion Augmented (Betamethasone Dp Aug 0.05% Cream) 1 swathi PRN BID PRN TP RASH 11/21/20 22:15 Multi-Ingred Cream/Lotion/Oil/ Oint (Hydrocerin) 1 swathi PRN BID PRN TP Dry Hands 11/21/20 22:00 Guaifenesin (Robitussin Dm) 10 ml PRN Q8HRS PRN PO COUGH 11/21/20 22:00 12/23/20 08:40 Insulin Human Lispro (HumaLOG) 20 units TIDWMEALS SQ 11/22/20 08:00 01/02/21 17:35 Insulin Glargine (Lantus Syringe) 30 unit BID SQ 11/21/20 22:00 01/02/21 20:56 Magnesium Chloride (Mag Delay) 64 mg DAILY PO 11/22/20 09:00 01/02/21 08:46 Non-Formulary Medication (Menthol (Biofreeze)) 1 swathi QID PRN TP MUSCLE PAIN 11/21/20 21:45 UNV Pantoprazole Sodium (Protonix) 40 mg DAILY PO 11/22/20 09:00 01/02/21 08:45 Oxybutynin Chloride (Ditropan) 5 mg DAILY PO 11/22/20 09:00 01/02/21 08:45 Polyethylene Glycol (miraLAX) 17 gm DAILY PO 11/22/20 09:00 01/02/21 08:45 Potassium Chloride (Klor-Con) 10 meq DAILY PO 11/22/20 09:00 01/02/21 08:45 Propranolol HCl (Inderal) 40 mg DAILY PO 11/22/20 09:00 01/02/21 08:46 Quetiapine Fumarate (SEROquel) 600 mg HS PO 11/21/20 22:15 12/03/20 18:47 DC 12/02/20 20:08 Saliva Substitute (Biotene Moisturizing Mouth) 2 spray PRN TID PRN PO DRY MOUTH 11/21/20 22:15 Non-Formulary Medication (Semaglutide (Ozempic)) 1 mg QFR SQ 11/23/20 16:00 12/09/20 10:20 DC Pentoxifylline (TRENtal) 400 mg TIDWMEALS PO 11/22/20 08:00 01/02/21 18:02 DC 01/02/21 12:47 Vitamin D (Vitamin D3) 2,000 unit DAILY PO 11/22/20 09:00 01/02/21 08:46 Lactobacillus Rhamnosus (Culturelle) 1 cap BID PO 11/22/20 09:00 01/02/21 20:35 Mirtazapine (Remeron) 7.5 mg QHS PO 11/27/20 21:00 12/11/20 17:03 DC 12/10/20 20:08 Divalproex Sodium (Depakote Er) 500 mg QHS PO 11/28/20 21:00 12/01/20 17:12 DC 11/30/20 20:45 Divalproex Sodium (Depakote Er) 1,000 mg QHS PO 12/01/20 21:00 12/21/20 19:55 DC 12/20/20 20:28 Bupropion HCl (Wellbutrin Xl) 150 mg DAILY PO 12/03/20 09:00 12/09/20 16:24 DC 12/09/20 08:14 Quetiapine Fumarate (SEROquel) 200 mg TID PO 12/03/20 21:00 12/06/20 11:47 DC 12/06/20 07:48 Clonazepam (KlonoPIN) 0.5 mg TID PO 12/03/20 21:00 01/02/21 20:35 Trazodone HCl (Desyrel) 100 mg PRN QHS PRN PO INSOMNIA, MRX1 12/04/20 19:15 01/01/21 20:19 Risperidone (RisperDAL) 0.5 mg 0900,1300,1700 PO 12/06/20 13:00 12/07/20 17:12 DC 12/07/20 09:00 Risperidone (RisperDAL) 1.5 mg DAILY PO 12/08/20 09:00 12/07/20 19:50 DC Risperidone (RisperDAL) 1.5 mg DAILY PO 12/07/20 20:00 12/09/20 16:24 DC 12/09/20 08:16 Acetaminophen/ Hydrocodone Bitart (Lortab 5/325) 1 tab PRN TID PRN PO mod-sev PAIN 12/08/20 17:00 01/02/21 20:35 Risperidone (RisperDAL) 2 mg DAILY PO 12/10/20 09:00 12/13/20 12:47 DC 12/13/20 09:29 Mirtazapine (Remeron) 15 mg QHS PO 12/11/20 21:00 01/02/21 20:35 Risperidone (RisperDAL) 3 mg DAILY PO 12/14/20 09:00 12/23/20 07:12 DC 12/22/20 08:31 Risperidone (RisperDAL CONSTA) 25 mg Q2WKS IM 12/14/20 09:00 12/28/20 09:01 Quetiapine Fumarate (SEROquel) 50 mg PRN Q2HR PRN PO ANXIETY/AGITATION, 2ND CHOICE 12/16/20 04:15 12/16/20 04:41 Lorazepam (Ativan) 0.5 mg PRN Q2HR PRN PO ANXIETY/AGITATION, 1ST CHOICE 12/16/20 04:15 12/23/20 17:16 Trazodone HCl (Desyrel) 25 mg 0900,1300,1700 PO 12/18/20 09:00 12/23/20 16:59 DC 12/23/20 12:29 Temazepam (Restoril) 15 mg PRN QHS PRN PO INSOMNIA, MRX1, 1ST CHOICE 12/19/20 18:15 12/22/20 09:00 DC 12/21/20 19:59 Divalproex Sodium (Depakote Sprinkles) 500 mg BID PO 12/21/20 21:00 01/02/21 20:36 Risperidone (RisperDAL) 3 mg DAILY PO 12/23/20 09:00 01/02/21 08:45 Trazodone HCl (Desyrel) 25 mg DAILY PO 12/24/20 09:00 01/02/21 08:46 Trazodone HCl (Desyrel) 50 mg 1300,1700 PO 12/23/20 17:00 01/02/21 17:33 I have reviewed the current psychotropics carefully including drug interactions. Risk benefit ratio favors no change other than as noted in my dictated progress note. Diagnosis: Problems: (1) Mild cognitive impairment (2) Schizoaffective disorder, bipolar type (3) Anxiety disorder, unspecified (4) Impulse disorder, unspecified (5) Bipolar disorder, curr episode mixed, severe, with psychotic features RAJIV VELAZQUEZ MD Jan 02, 2021 21:16
[2021-01-03] MEDS: LEVOTHYROXINE 112 MCG TABLET PO SCH (05:14)
[2021-01-03 05:16] VITALS: BP 124/75
[2021-01-03] MEDS: clonazePAM 0.5 MG TABLET PO SCH ×3 (08:18→21:30)
[2021-01-03] MEDS: DIVALPROEX 125 MG CAP.SPRINK PO SCH ×2 (08:18→21:30)
[2021-01-03] MEDS: traZODone 50 MG TABLET. PO SCH ×3 (08:19→17:00)
[2021-01-03] MEDS: risperiDONE 1 MG TABLET. PO SCH (08:19)
[2021-01-03] MEDS: PANTOPRAZOLE 40 MG TABLET. PO SCH (08:19)
[2021-01-03] MEDS: PROPRANOLOL 20 MG TABLET. PO SCH (08:19)
[2021-01-03] MEDS: FUROSEMIDE 40 MG TABLET PO SCH (08:20)
[2021-01-03] MEDS: OXYBUTYNIN CHLORIDE 5 MG TABLET PO SCH (08:20)
[2021-01-03] MEDS: INSULIN LISPRO 300 UNITS/3 ML VIAL. SQ SCH ×3 (08:22→17:00)
[2021-01-03] MEDS: INSULIN GLARGINE SYRINGE. SQ SCH ×2 (08:23→21:31)
[2021-01-03] MEDS: MAGNESIUM CHLORIDE ER 64 MG TABLET.ER PO SCH (08:25)
[2021-01-03] MEDS: CHOLECALCIFEROL (VITAMIN D3) 1,000 UNIT TABLET PO SCH (08:25)
[2021-01-03] MEDS: POTASSIUM CHLORIDE 10 MEQ TABLET.ER. PO SCH (08:26)
[2021-01-03] MEDS: POLYETHYLENE GLYCOL 3350 17 GM PACKET. PO SCH (08:26)
[2021-01-03] MEDS: ASPIRIN ENTERIC COATED 81 MG TABLET.DR. PO SCH (08:26)
[2021-01-03] MEDS: LACTOBACILLUS RHAMNOSUS GG 1 CAPSULE. PO SCH ×2 (08:34→21:30)
--- NOTE | 2021-01-03 08:52 | PDOC ---
Exam Note: Donte Note: This note is a late entry for 01/02/2021 covers elements not covered in my initial note. Subjective: The patient was seen face to face in the evening of 01/02/2021 with Estela COPELAND. She slept 5-1/4 hours previous night. The patient was quite pleasant in the morning, refused her meds in the evening, angry with nursing staff. She did come to groups, playing loud music on the tiffanie and when staff intervened she was staring down the staff. She feels Trental worsens her arthritis. I will defer to Dr. Daniels. Review of Systems: No CV, , pulmonary, eye, ENT system symptoms on review. Mental Status Exam: The patient is reasonably oriented. Speech is moderate latency. Often response is monosyllabic. Abstraction is fair. Computation is impaired. Language function is intact. Mood and affect withdrawn. Laboratory Data: Reviewed. Impression: Schizoaffective disorder, bipolar type, mixed with psychotic features. Anxiety disorder unspecified. Impulse control disorder unspecified. Plan: No change from initial note. Assessment: Vital Signs/I&O: Vital Signs Date Time Temp Pulse Resp B/P (MAP) Pulse Ox O2 Delivery O2 Flow Rate FiO2 01/03/21 08:19 74 124/75 01/03/21 05:16 98.1 18 96 12/31/20 15:40 Room Air I & O 01/02/21 01/02/21 01/03/21 15:00 23:00 07:00 Intake Total 960 ml 900 ml Balance 960 ml 900 ml Current Medications: Meds: Current Medications Medications (Trade) Dose Ordered Sig/Leonides Route PRN Reason Start Time Stop Time Status Last Admin Dose Admin Multi-Ingredient Ointment (Analgesic [place]) 1 swathi PRN QID PRN TP MUSCLE PAIN 11/21/20 21:00 Al Hydroxide/Mg Hydroxide (Mylanta Plus Xs) 15 ml PRN AFTMEALHC PRN PO DYSPEPSIA 11/21/20 21:00 12/29/20 01:52 Magnesium Hydroxide (Milk Of Magnesia) 2,400 mg PRN QHS PRN PO 1ST CHOICE CONSTIPATION 11/21/20 21:00 Acetaminophen (Tylenol) 650 mg PRN Q4HRS PRN PO MILD PAIN / TEMP > 100.3'F 11/21/20 21:45 12/06/20 22:17 Amoxicillin/ Clavulanate Potassium (Augmentin 875/ 125mg) 1 tab BID PO 11/22/20 09:00 11/24/20 21:01 DC 11/24/20 20:55 Aspirin (Aspirin Enteric Coated) 81 mg DAILY PO 11/22/20 09:00 01/03/21 08:26 Bisacodyl (Dulcolax Tab) 5 mg PRN DAILY PRN PO 2ND CHOICE CONSTIPATION 11/21/20 21:45 Furosemide (Lasix) 40 mg DAILY PO 11/22/20 09:00 01/03/21 08:20 Acetaminophen/ Hydrocodone Bitart (Lortab 5/325) 1 tab PRN BID PRN PO mod-sev PAIN 11/21/20 21:45 12/08/20 17:03 DC 12/08/20 09:20 Ibuprofen (Motrin) 200 mg PRN Q6HRS PRN PO MILD PAIN / TEMP > 100.3'F 11/21/20 21:45 Cancel Albuterol/ Ipratropium (Duoneb) 3 ml PRN BID PRN NEB SHORTNESS OF BREATH 11/21/20 21:45 Levothyroxine Sodium (Synthroid) 112 mcg DAILY06 PO 11/22/20 06:00 01/03/21 05:14 Lorazepam (Ativan) 0.5 mg TID PO 11/21/20 22:00 12/03/20 18:47 DC 12/03/20 13:59 Zolpidem Tartrate (Ambien) 5 mg HS PO 11/21/20 22:00 11/27/20 18:02 DC 11/26/20 20:44 Betamethasone Dipropion Augmented (Betamethasone Dp Aug 0.05% Cream) 1 swathi PRN BID PRN TP RASH 11/21/20 22:15 Multi-Ingred Cream/Lotion/Oil/ Oint (Hydrocerin) 1 swathi PRN BID PRN TP Dry Hands 11/21/20 22:00 Guaifenesin (Robitussin Dm) 10 ml PRN Q8HRS PRN PO COUGH 11/21/20 22:00 12/23/20 08:40 Insulin Human Lispro (HumaLOG) 20 units TIDWMEALS SQ 11/22/20 08:00 01/03/21 08:22 Insulin Glargine (Lantus Syringe) 30 unit BID SQ 11/21/20 22:00 01/03/21 08:23 Magnesium Chloride (Mag Delay) 64 mg DAILY PO 11/22/20 09:00 01/03/21 08:25 Non-Formulary Medication (Menthol (Biofreeze)) 1 swathi QID PRN TP MUSCLE PAIN 11/21/20 21:45 UNV Pantoprazole Sodium (Protonix) 40 mg DAILY PO 11/22/20 09:00 01/03/21 08:19 Oxybutynin Chloride (Ditropan) 5 mg DAILY PO 11/22/20 09:00 01/03/21 08:20 Polyethylene Glycol (miraLAX) 17 gm DAILY PO 11/22/20 09:00 01/03/21 08:26 Potassium Chloride (Klor-Con) 10 meq DAILY PO 11/22/20 09:00 01/03/21 08:26 Propranolol HCl (Inderal) 40 mg DAILY PO 11/22/20 09:00 01/03/21 08:19 Quetiapine Fumarate (SEROquel) 600 mg HS PO 11/21/20 22:15 12/03/20 18:47 DC 12/02/20 20:08 Saliva Substitute (Biotene Moisturizing Mouth) 2 spray PRN TID PRN PO DRY MOUTH 11/21/20 22:15 Non-Formulary Medication (Semaglutide (Ozempic)) 1 mg QFR SQ 11/23/20 16:00 12/09/20 10:20 DC Pentoxifylline (TRENtal) 400 mg TIDWMEALS PO 11/22/20 08:00 01/02/21 18:02 DC 01/02/21 12:47 Vitamin D (Vitamin D3) 2,000 unit DAILY PO 11/22/20 09:00 01/03/21 08:25 Lactobacillus Rhamnosus (Culturelle) 1 cap BID PO 11/22/20 09:00 01/03/21 08:34 Mirtazapine (Remeron) 7.5 mg QHS PO 11/27/20 21:00 12/11/20 17:03 DC 12/10/20 20:08 Divalproex Sodium (Depakote Er) 500 mg QHS PO 11/28/20 21:00 12/01/20 17:12 DC 11/30/20 20:45 Divalproex Sodium (Depakote Er) 1,000 mg QHS PO 12/01/20 21:00 12/21/20 19:55 DC 12/20/20 20:28 Bupropion HCl (Wellbutrin Xl) 150 mg DAILY PO 12/03/20 09:00 12/09/20 16:24 DC 12/09/20 08:14 Quetiapine Fumarate (SEROquel) 200 mg TID PO 12/03/20 21:00 12/06/20 11:47 DC 12/06/20 07:48 Clonazepam (KlonoPIN) 0.5 mg TID PO 12/03/20 21:00 01/03/21 08:18 Trazodone HCl (Desyrel) 100 mg PRN QHS PRN PO INSOMNIA, MRX1 12/04/20 19:15 01/01/21 20:19 Risperidone (RisperDAL) 0.5 mg 0900,1300,1700 PO 12/06/20 13:00 12/07/20 17:12 DC 12/07/20 09:00 Risperidone (RisperDAL) 1.5 mg DAILY PO 12/08/20 09:00 12/07/20 19:50 DC Risperidone (RisperDAL) 1.5 mg DAILY PO 12/07/20 20:00 12/09/20 16:24 DC 12/09/20 08:16 Acetaminophen/ Hydrocodone Bitart (Lortab 5/325) 1 tab PRN TID PRN PO mod-sev PAIN 12/08/20 17:00 01/02/21 20:35 Risperidone (RisperDAL) 2 mg DAILY PO 12/10/20 09:00 12/13/20 12:47 DC 12/13/20 09:29 Mirtazapine (Remeron) 15 mg QHS PO 12/11/20 21:00 01/02/21 20:35 Risperidone (RisperDAL) 3 mg DAILY PO 12/14/20 09:00 12/23/20 07:12 DC 12/22/20 08:31 Risperidone (RisperDAL CONSTA) 25 mg Q2WKS IM 12/14/20 09:00 12/28/20 09:01 Quetiapine Fumarate (SEROquel) 50 mg PRN Q2HR PRN PO ANXIETY/AGITATION, 2ND CHOICE 12/16/20 04:15 12/16/20 04:41 Lorazepam (Ativan) 0.5 mg PRN Q2HR PRN PO ANXIETY/AGITATION, 1ST CHOICE 12/16/20 04:15 12/23/20 17:16 Trazodone HCl (Desyrel) 25 mg 0900,1300,1700 PO 12/18/20 09:00 12/23/20 16:59 DC 12/23/20 12:29 Temazepam (Restoril) 15 mg PRN QHS PRN PO INSOMNIA, MRX1, 1ST CHOICE 12/19/20 18:15 12/22/20 09:00 DC 12/21/20 19:59 Divalproex Sodium (Depakote Sprinkles) 500 mg BID PO 12/21/20 21:00 01/03/21 08:18 Risperidone (RisperDAL) 3 mg DAILY PO 12/23/20 09:00 01/03/21 08:19 Trazodone HCl (Desyrel) 25 mg DAILY PO 12/24/20 09:00 01/03/21 08:19 Trazodone HCl (Desyrel) 50 mg 1300,1700 PO 12/23/20 17:00 01/02/21 17:33 I have reviewed the current psychotropics carefully including drug interactions. Risk benefit ratio favors no change other than as noted in my dictated progress note. Diagnosis: Problems: (1) Schizoaffective disorder, bipolar type (2) Mild cognitive impairment (3) Anxiety disorder, unspecified RAJIV VELAZQUEZ MD Jan 03, 2021 08:52
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
[2021-01-03 15:28] VITALS: BP 104/69
--- NOTE | 2021-01-03 21:13 | PDOC ---
Exam Note: Donte Note: Please also refer to the separate dictated note~for this date of service dictated separately.~Patient seen individually. Discussed the patient with Nursing staff reviewed the chart.~Reviewed interim history and current functioning. Reviewed vital signs,~Labs/ Radiology~and current medications noted below. Continue current treatment with the changes noted in the dictated addendum note Assessment: Vital Signs/I&O: Vital Signs Date Time Temp Pulse Resp B/P (MAP) Pulse Ox O2 Delivery O2 Flow Rate FiO2 01/03/21 15:28 98.1 66 16 104/69 (81) 97 Room Air I & O 01/02/21 01/02/21 01/03/21 15:00 23:00 07:00 Intake Total 960 ml 900 ml Balance 960 ml 900 ml Labs: Laboratory Tests Test 01/03/21 07:46 01/03/21 11:54 01/03/21 17:03 Glucose (Fingerstick) 179 mg/dL (70-99) H 324 mg/dL (70-99) H 139 mg/dL (70-99) H Current Medications: Meds: Laboratory Tests Test 01/03/21 07:46 01/03/21 11:54 01/03/21 17:03 Glucose (Fingerstick) 179 mg/dL 324 mg/dL 139 mg/dL Current Medications Medications (Trade) Dose Ordered Sig/Leonides Route PRN Reason Start Time Stop Time Status Last Admin Dose Admin Multi-Ingredient Ointment (Analgesic [place]) 1 swathi PRN QID PRN TP MUSCLE PAIN 11/21/20 21:00 Al Hydroxide/Mg Hydroxide (Mylanta Plus Xs) 15 ml PRN AFTMEALHC PRN PO DYSPEPSIA 11/21/20 21:00 12/29/20 01:52 Magnesium Hydroxide (Milk Of Magnesia) 2,400 mg PRN QHS PRN PO 1ST CHOICE CONSTIPATION 11/21/20 21:00 Acetaminophen (Tylenol) 650 mg PRN Q4HRS PRN PO MILD PAIN / TEMP > 100.3'F 11/21/20 21:45 12/06/20 22:17 Amoxicillin/ Clavulanate Potassium (Augmentin 875/ 125mg) 1 tab BID PO 11/22/20 09:00 11/24/20 21:01 DC 11/24/20 20:55 Aspirin (Aspirin Enteric Coated) 81 mg DAILY PO 11/22/20 09:00 01/03/21 08:26 Bisacodyl (Dulcolax Tab) 5 mg PRN DAILY PRN PO 2ND CHOICE CONSTIPATION 11/21/20 21:45 Furosemide (Lasix) 40 mg DAILY PO 11/22/20 09:00 01/03/21 08:20 Acetaminophen/ Hydrocodone Bitart (Lortab 5/325) 1 tab PRN BID PRN PO mod-sev PAIN 11/21/20 21:45 12/08/20 17:03 DC 12/08/20 09:20 Ibuprofen (Motrin) 200 mg PRN Q6HRS PRN PO MILD PAIN / TEMP > 100.3'F 11/21/20 21:45 Cancel Albuterol/ Ipratropium (Duoneb) 3 ml PRN BID PRN NEB SHORTNESS OF BREATH 11/21/20 21:45 Levothyroxine Sodium (Synthroid) 112 mcg DAILY06 PO 11/22/20 06:00 01/03/21 05:14 Lorazepam (Ativan) 0.5 mg TID PO 11/21/20 22:00 12/03/20 18:47 DC 12/03/20 13:59 Zolpidem Tartrate (Ambien) 5 mg HS PO 11/21/20 22:00 11/27/20 18:02 DC 11/26/20 20:44 Betamethasone Dipropion Augmented (Betamethasone Dp Aug 0.05% Cream) 1 swathi PRN BID PRN TP RASH 11/21/20 22:15 Multi-Ingred Cream/Lotion/Oil/ Oint (Hydrocerin) 1 swathi PRN BID PRN TP Dry Hands 11/21/20 22:00 Guaifenesin (Robitussin Dm) 10 ml PRN Q8HRS PRN PO COUGH 11/21/20 22:00 12/23/20 08:40 Insulin Human Lispro (HumaLOG) 20 units TIDWMEALS SQ 11/22/20 08:00 01/03/21 12:00 Insulin Glargine (Lantus Syringe) 30 unit BID SQ 11/21/20 22:00 01/03/21 08:23 Magnesium Chloride (Mag Delay) 64 mg DAILY PO 11/22/20 09:00 01/03/21 08:25 Non-Formulary Medication (Menthol (Biofreeze)) 1 swathi QID PRN TP MUSCLE PAIN 11/21/20 21:45 UNV Pantoprazole Sodium (Protonix) 40 mg DAILY PO 11/22/20 09:00 01/03/21 08:19 Oxybutynin Chloride (Ditropan) 5 mg DAILY PO 11/22/20 09:00 01/03/21 08:20 Polyethylene Glycol (miraLAX) 17 gm DAILY PO 11/22/20 09:00 01/03/21 08:26 Potassium Chloride (Klor-Con) 10 meq DAILY PO 11/22/20 09:00 01/03/21 08:26 Propranolol HCl (Inderal) 40 mg DAILY PO 11/22/20 09:00 01/03/21 08:19 Quetiapine Fumarate (SEROquel) 600 mg HS PO 11/21/20 22:15 12/03/20 18:47 DC 12/02/20 20:08 Saliva Substitute (Biotene Moisturizing Mouth) 2 spray PRN TID PRN PO DRY MOUTH 11/21/20 22:15 Non-Formulary Medication (Semaglutide (Ozempic)) 1 mg QFR SQ 11/23/20 16:00 12/09/20 10:20 DC Pentoxifylline (TRENtal) 400 mg TIDWMEALS PO 11/22/20 08:00 01/02/21 18:02 DC 01/02/21 12:47 Vitamin D (Vitamin D3) 2,000 unit DAILY PO 11/22/20 09:00 01/03/21 08:25 Lactobacillus Rhamnosus (Culturelle) 1 cap BID PO 11/22/20 09:00 01/03/21 08:34 Mirtazapine (Remeron) 7.5 mg QHS PO 11/27/20 21:00 12/11/20 17:03 DC 12/10/20 20:08 Divalproex Sodium (Depakote Er) 500 mg QHS PO 11/28/20 21:00 12/01/20 17:12 DC 11/30/20 20:45 Divalproex Sodium (Depakote Er) 1,000 mg QHS PO 12/01/20 21:00 12/21/20 19:55 DC 12/20/20 20:28 Bupropion HCl (Wellbutrin Xl) 150 mg DAILY PO 12/03/20 09:00 12/09/20 16:24 DC 12/09/20 08:14 Quetiapine Fumarate (SEROquel) 200 mg TID PO 12/03/20 21:00 12/06/20 11:47 DC 12/06/20 07:48 Clonazepam (KlonoPIN) 0.5 mg TID PO 12/03/20 21:00 01/03/21 14:00 Trazodone HCl (Desyrel) 100 mg PRN QHS PRN PO INSOMNIA, MRX1 12/04/20 19:15 01/01/21 20:19 Risperidone (RisperDAL) 0.5 mg 0900,1300,1700 PO 12/06/20 13:00 12/07/20 17:12 DC 12/07/20 09:00 Risperidone (RisperDAL) 1.5 mg DAILY PO 12/08/20 09:00 12/07/20 19:50 DC Risperidone (RisperDAL) 1.5 mg DAILY PO 12/07/20 20:00 12/09/20 16:24 DC 12/09/20 08:16 Acetaminophen/ Hydrocodone Bitart (Lortab 5/325) 1 tab PRN TID PRN PO mod-sev PAIN 12/08/20 17:00 01/02/21 20:35 Risperidone (RisperDAL) 2 mg DAILY PO 12/10/20 09:00 12/13/20 12:47 DC 12/13/20 09:29 Mirtazapine (Remeron) 15 mg QHS PO 12/11/20 21:00 01/02/21 20:35 Risperidone (RisperDAL) 3 mg DAILY PO 12/14/20 09:00 12/23/20 07:12 DC 12/22/20 08:31 Risperidone (RisperDAL CONSTA) 25 mg Q2WKS IM 12/14/20 09:00 12/28/20 09:01 Quetiapine Fumarate (SEROquel) 50 mg PRN Q2HR PRN PO ANXIETY/AGITATION, 2ND CHOICE 12/16/20 04:15 12/16/20 04:41 Lorazepam (Ativan) 0.5 mg PRN Q2HR PRN PO ANXIETY/AGITATION, 1ST CHOICE 12/16/20 04:15 12/23/20 17:16 Trazodone HCl (Desyrel) 25 mg 0900,1300,1700 PO 12/18/20 09:00 12/23/20 16:59 DC 12/23/20 12:29 Temazepam (Restoril) 15 mg PRN QHS PRN PO INSOMNIA, MRX1, 1ST CHOICE 12/19/20 18:15 12/22/20 09:00 DC 12/21/20 19:59 Divalproex Sodium (Depakote Sprinkles) 500 mg BID PO 12/21/20 21:00 01/03/21 08:18 Risperidone (RisperDAL) 3 mg DAILY PO 12/23/20 09:00 01/03/21 08:19 Trazodone HCl (Desyrel) 25 mg DAILY PO 12/24/20 09:00 01/03/21 08:19 Trazodone HCl (Desyrel) 50 mg 1300,1700 PO 12/23/20 17:00 01/03/21 13:00 I have reviewed the current psychotropics carefully including drug interactions. Risk benefit ratio favors no change other than as noted in my dictated progress note. Diagnosis: Problems: (1) Mild cognitive impairment (2) Schizoaffective disorder, bipolar type (3) Anxiety disorder, unspecified (4) Impulse disorder, unspecified (5) Bipolar disorder, curr episode mixed, severe, with psychotic features RAJIV VELAZQUEZ MD Jan 03, 2021 21:13
[2021-01-03] MEDS: MIRTAZAPINE 15 MG TABLET PO SCH (21:30)
[2021-01-04] MEDS: MAG HYDROX/AL HYDROX/SIMETH 30 ML ORAL.SUSP PO PRN (01:37)
[2021-01-04] MEDS: LEVOTHYROXINE 112 MCG TABLET PO SCH ×2 (05:39→08:25)
[2021-01-04 06:12] VITALS: BP 144/78
[2021-01-04] MEDS: POLYETHYLENE GLYCOL 3350 17 GM PACKET. PO SCH (08:21)
[2021-01-04] MEDS: PROPRANOLOL 20 MG TABLET. PO SCH (08:22)
[2021-01-04] MEDS: ASPIRIN ENTERIC COATED 81 MG TABLET.DR. PO SCH (08:22)
[2021-01-04] MEDS: LACTOBACILLUS RHAMNOSUS GG 1 CAPSULE. PO SCH ×2 (08:23→20:54)
[2021-01-04] MEDS: CHOLECALCIFEROL (VITAMIN D3) 1,000 UNIT TABLET PO SCH (08:23)
[2021-01-04] MEDS: clonazePAM 0.5 MG TABLET PO SCH ×3 (08:23→20:54)
[2021-01-04] MEDS: DIVALPROEX 125 MG CAP.SPRINK PO SCH ×2 (08:24→20:55)
[2021-01-04] MEDS: MAGNESIUM CHLORIDE ER 64 MG TABLET.ER PO SCH (08:24)
[2021-01-04] MEDS: traZODone 50 MG TABLET. PO SCH ×3 (08:24→17:00)
[2021-01-04] MEDS: risperiDONE 1 MG TABLET. PO SCH (08:24)
[2021-01-04] MEDS: POTASSIUM CHLORIDE 10 MEQ TABLET.ER. PO SCH (08:25)
[2021-01-04] MEDS: PANTOPRAZOLE 40 MG TABLET. PO SCH (08:25)
[2021-01-04] MEDS: FUROSEMIDE 40 MG TABLET PO SCH (08:25)
[2021-01-04] MEDS: OXYBUTYNIN CHLORIDE 5 MG TABLET PO SCH (08:25)
[2021-01-04] MEDS: INSULIN GLARGINE SYRINGE. SQ SCH ×2 (08:28→20:57)
[2021-01-04] MEDS: INSULIN LISPRO 300 UNITS/3 ML VIAL. SQ SCH ×3 (08:28→17:00)
[2021-01-04 15:49] VITALS: BP 109/72
[2021-01-04] MEDS: MIRTAZAPINE 15 MG TABLET PO SCH (20:54)
[2021-01-04] MEDS: traZODone 100 MG TABLET. PO PRN (20:54)
--- NOTE | 2021-01-04 21:00 | PDOC ---
Exam Note: Donte Note: Please also refer to the separate dictated note~for this date of service dictated separately.~Patient seen individually. Discussed the patient with Nursing staff reviewed the chart.~Reviewed interim history and current functioning. Reviewed vital signs,~Labs/ Radiology~and current medications noted below. Continue current treatment with the changes noted in the dictated addendum note Assessment: Vital Signs/I&O: Vital Signs Date Time Temp Pulse Resp B/P (MAP) Pulse Ox O2 Delivery O2 Flow Rate FiO2 01/04/21 15:49 97.6 69 16 109/72 (84) 98 Room Air I & O 01/03/21 01/03/21 01/04/21 15:00 23:00 07:00 Intake Total 640 ml 720 ml Balance 640 ml 720 ml Labs: Laboratory Tests Test 01/03/21 21:28 01/04/21 07:32 01/04/21 11:18 01/04/21 17:06 Glucose (Fingerstick) 394 mg/dL (70-99) H 234 mg/dL (70-99) H 264 mg/dL (70-99) H 257 mg/dL (70-99) H Test 01/04/21 19:09 Glucose (Fingerstick) 260 mg/dL (70-99) H Current Medications: Meds: Laboratory Tests Test 01/03/21 21:28 01/04/21 07:32 01/04/21 11:18 01/04/21 17:06 Glucose (Fingerstick) 394 mg/dL 234 mg/dL 264 mg/dL 257 mg/dL Test 01/04/21 19:09 Glucose (Fingerstick) 260 mg/dL Current Medications Medications (Trade) Dose Ordered Sig/Leonides Route PRN Reason Start Time Stop Time Status Last Admin Dose Admin Multi-Ingredient Ointment (Analgesic [place]) 1 swathi PRN QID PRN TP MUSCLE PAIN 11/21/20 21:00 Al Hydroxide/Mg Hydroxide (Mylanta Plus Xs) 15 ml PRN AFTMEALHC PRN PO DYSPEPSIA 11/21/20 21:00 01/04/21 01:37 Magnesium Hydroxide (Milk Of Magnesia) 2,400 mg PRN QHS PRN PO 1ST CHOICE CONSTIPATION 11/21/20 21:00 Acetaminophen (Tylenol) 650 mg PRN Q4HRS PRN PO MILD PAIN / TEMP > 100.3'F 11/21/20 21:45 12/06/20 22:17 Amoxicillin/ Clavulanate Potassium (Augmentin 875/ 125mg) 1 tab BID PO 11/22/20 09:00 11/24/20 21:01 DC 11/24/20 20:55 Aspirin (Aspirin Enteric Coated) 81 mg DAILY PO 11/22/20 09:00 01/04/21 08:22 Bisacodyl (Dulcolax Tab) 5 mg PRN DAILY PRN PO 2ND CHOICE CONSTIPATION 11/21/20 21:45 Furosemide (Lasix) 40 mg DAILY PO 11/22/20 09:00 01/04/21 08:25 Acetaminophen/ Hydrocodone Bitart (Lortab 5/325) 1 tab PRN BID PRN PO mod-sev PAIN 11/21/20 21:45 12/08/20 17:03 DC 12/08/20 09:20 Ibuprofen (Motrin) 200 mg PRN Q6HRS PRN PO MILD PAIN / TEMP > 100.3'F 11/21/20 21:45 Cancel Albuterol/ Ipratropium (Duoneb) 3 ml PRN BID PRN NEB SHORTNESS OF BREATH 11/21/20 21:45 Levothyroxine Sodium (Synthroid) 112 mcg DAILY06 PO 11/22/20 06:00 01/04/21 05:39 Lorazepam (Ativan) 0.5 mg TID PO 11/21/20 22:00 12/03/20 18:47 DC 12/03/20 13:59 Zolpidem Tartrate (Ambien) 5 mg HS PO 11/21/20 22:00 11/27/20 18:02 DC 11/26/20 20:44 Betamethasone Dipropion Augmented (Betamethasone Dp Aug 0.05% Cream) 1 swathi PRN BID PRN TP RASH 11/21/20 22:15 Multi-Ingred Cream/Lotion/Oil/ Oint (Hydrocerin) 1 swathi PRN BID PRN TP Dry Hands 11/21/20 22:00 Guaifenesin (Robitussin Dm) 10 ml PRN Q8HRS PRN PO COUGH 11/21/20 22:00 12/23/20 08:40 Insulin Human Lispro (HumaLOG) 20 units TIDWMEALS SQ 11/22/20 08:00 01/04/21 17:00 Insulin Glargine (Lantus Syringe) 30 unit BID SQ 11/21/20 22:00 01/04/21 20:57 Magnesium Chloride (Mag Delay) 64 mg DAILY PO 11/22/20 09:00 01/04/21 08:24 Non-Formulary Medication (Menthol (Biofreeze)) 1 swathi QID PRN TP MUSCLE PAIN 11/21/20 21:45 UNV Pantoprazole Sodium (Protonix) 40 mg DAILY PO 11/22/20 09:00 01/04/21 08:25 Oxybutynin Chloride (Ditropan) 5 mg DAILY PO 11/22/20 09:00 01/04/21 08:25 Polyethylene Glycol (miraLAX) 17 gm DAILY PO 11/22/20 09:00 01/04/21 08:21 Potassium Chloride (Klor-Con) 10 meq DAILY PO 11/22/20 09:00 01/04/21 08:25 Propranolol HCl (Inderal) 40 mg DAILY PO 11/22/20 09:00 01/04/21 08:22 Quetiapine Fumarate (SEROquel) 600 mg HS PO 11/21/20 22:15 12/03/20 18:47 DC 12/02/20 20:08 Saliva Substitute (Biotene Moisturizing Mouth) 2 spray PRN TID PRN PO DRY MOUTH 11/21/20 22:15 Non-Formulary Medication (Semaglutide (Ozempic)) 1 mg QFR SQ 11/23/20 16:00 12/09/20 10:20 DC Pentoxifylline (TRENtal) 400 mg TIDWMEALS PO 11/22/20 08:00 01/02/21 18:02 DC 01/02/21 12:47 Vitamin D (Vitamin D3) 2,000 unit DAILY PO 11/22/20 09:00 01/04/21 08:23 Lactobacillus Rhamnosus (Culturelle) 1 cap BID PO 11/22/20 09:00 01/04/21 20:54 Mirtazapine (Remeron) 7.5 mg QHS PO 11/27/20 21:00 12/11/20 17:03 DC 12/10/20 20:08 Divalproex Sodium (Depakote Er) 500 mg QHS PO 11/28/20 21:00 12/01/20 17:12 DC 11/30/20 20:45 Divalproex Sodium (Depakote Er) 1,000 mg QHS PO 12/01/20 21:00 12/21/20 19:55 DC 12/20/20 20:28 Bupropion HCl (Wellbutrin Xl) 150 mg DAILY PO 12/03/20 09:00 12/09/20 16:24 DC 12/09/20 08:14 Quetiapine Fumarate (SEROquel) 200 mg TID PO 12/03/20 21:00 12/06/20 11:47 DC 12/06/20 07:48 Clonazepam (KlonoPIN) 0.5 mg TID PO 12/03/20 21:00 01/04/21 20:54 Trazodone HCl (Desyrel) 100 mg PRN QHS PRN PO INSOMNIA, MRX1 12/04/20 19:15 01/04/21 20:54 Risperidone (RisperDAL) 0.5 mg 0900,1300,1700 PO 12/06/20 13:00 12/07/20 17:12 DC 12/07/20 09:00 Risperidone (RisperDAL) 1.5 mg DAILY PO 12/08/20 09:00 12/07/20 19:50 DC Risperidone (RisperDAL) 1.5 mg DAILY PO 12/07/20 20:00 12/09/20 16:24 DC 12/09/20 08:16 Acetaminophen/ Hydrocodone Bitart (Lortab 5/325) 1 tab PRN TID PRN PO mod-sev PAIN 12/08/20 17:00 01/02/21 20:35 Risperidone (RisperDAL) 2 mg DAILY PO 12/10/20 09:00 12/13/20 12:47 DC 12/13/20 09:29 Mirtazapine (Remeron) 15 mg QHS PO 12/11/20 21:00 01/04/21 20:54 Risperidone (RisperDAL) 3 mg DAILY PO 12/14/20 09:00 12/23/20 07:12 DC 12/22/20 08:31 Risperidone (RisperDAL CONSTA) 25 mg Q2WKS IM 12/14/20 09:00 12/28/20 09:01 Quetiapine Fumarate (SEROquel) 50 mg PRN Q2HR PRN PO ANXIETY/AGITATION, 2ND CHOICE 12/16/20 04:15 12/16/20 04:41 Lorazepam (Ativan) 0.5 mg PRN Q2HR PRN PO ANXIETY/AGITATION, 1ST CHOICE 12/16/20 04:15 12/23/20 17:16 Trazodone HCl (Desyrel) 25 mg 0900,1300,1700 PO 12/18/20 09:00 12/23/20 16:59 DC 12/23/20 12:29 Temazepam (Restoril) 15 mg PRN QHS PRN PO INSOMNIA, MRX1, 1ST CHOICE 12/19/20 18:15 12/22/20 09:00 DC 12/21/20 19:59 Divalproex Sodium (Depakote Sprinkles) 500 mg BID PO 12/21/20 21:00 01/04/21 20:55 Risperidone (RisperDAL) 3 mg DAILY PO 12/23/20 09:00 01/04/21 08:24 Trazodone HCl (Desyrel) 25 mg DAILY PO 12/24/20 09:00 01/04/21 08:24 Trazodone HCl (Desyrel) 50 mg 1300,1700 PO 12/23/20 17:00 01/04/21 17:00 I have reviewed the current psychotropics carefully including drug interactions. Risk benefit ratio favors no change other than as noted in my dictated progress note. Diagnosis: Problems: (1) Mild cognitive impairment (2) Schizoaffective disorder, bipolar type (3) Anxiety disorder, unspecified (4) Impulse disorder, unspecified (5) Bipolar disorder, curr episode mixed, severe, with psychotic features RAJIV VELAZQUEZ MD Jan 04, 2021 21:00
[2021-01-05 05:46] VITALS: BP 106/68
[2021-01-05] MEDS: LEVOTHYROXINE 112 MCG TABLET PO SCH (06:00)
[2021-01-05] MEDS: DIVALPROEX 125 MG CAP.SPRINK PO SCH ×2 (08:28→20:19)
[2021-01-05] MEDS: traZODone 50 MG TABLET. PO SCH ×3 (08:28→17:33)
[2021-01-05] MEDS: LACTOBACILLUS RHAMNOSUS GG 1 CAPSULE. PO SCH ×2 (08:28→20:19)
[2021-01-05] MEDS: ASPIRIN ENTERIC COATED 81 MG TABLET.DR. PO SCH (08:28)
[2021-01-05] MEDS: clonazePAM 0.5 MG TABLET PO SCH ×3 (08:29→20:19)
[2021-01-05] MEDS: POTASSIUM CHLORIDE 10 MEQ TABLET.ER. PO SCH (08:29)
[2021-01-05] MEDS: OXYBUTYNIN CHLORIDE 5 MG TABLET PO SCH (08:29)
[2021-01-05] MEDS: PROPRANOLOL 20 MG TABLET. PO SCH (08:29)
[2021-01-05] MEDS: FUROSEMIDE 40 MG TABLET PO SCH (08:30)
[2021-01-05] MEDS: MAGNESIUM CHLORIDE ER 64 MG TABLET.ER PO SCH (08:30)
[2021-01-05] MEDS: CHOLECALCIFEROL (VITAMIN D3) 1,000 UNIT TABLET PO SCH (08:30)
[2021-01-05] MEDS: risperiDONE 1 MG TABLET. PO SCH (08:30)
[2021-01-05] MEDS: PANTOPRAZOLE 40 MG TABLET. PO SCH (08:30)
--- NOTE | 2021-01-05 08:41 | RAD ---
EXAM: Left lower extremity venous Doppler. HISTORY: Left leg swelling COMPARISON: None. FINDINGS: Grayscale and Doppler analysis of the left lower extremity deep venous systems was performe d with graded compression and augmentation. The common femoral, greater saphenous, superficial femora l, popliteal and calf veins were assessed. There is no evidence of deep venous thrombosis. IMPRESSION: 1. No evidence of deep venous thrombosis in the left lower extremity. Electronically signed by: Jeannette Slade MD (01/05/2021 8:38 AM) [facility] [place]
[2021-01-05] MEDS: POLYETHYLENE GLYCOL 3350 17 GM PACKET. PO SCH (09:00)
[2021-01-05] MEDS: INSULIN GLARGINE SYRINGE. SQ SCH ×2 (09:43→20:24)
[2021-01-05] MEDS: INSULIN LISPRO 300 UNITS/3 ML VIAL. SQ SCH ×3 (09:44→17:36)
[2021-01-05 16:29] VITALS: BP 118/78
[2021-01-05] MEDS: MIRTAZAPINE 15 MG TABLET PO SCH (20:19)
[2021-01-05] MEDS: traZODone 100 MG TABLET. PO PRN (20:20)
--- NOTE | 2021-01-05 22:08 | PDOC ---
Exam Note: Donte Note: Please also refer to the separate dictated note~for this date of service dictated separately.~Patient seen individually. Discussed the patient with Nursing staff reviewed the chart.~Reviewed interim history and current functioning. Reviewed vital signs,~Labs/ Radiology~and current medications noted below. Continue current treatment with the changes noted in the dictated addendum note Assessment: Vital Signs/I&O: Vital Signs Date Time Temp Pulse Resp B/P (MAP) Pulse Ox O2 Delivery O2 Flow Rate FiO2 01/05/21 16:29 97.9 74 18 118/78 (91) 97 Room Air I & O 01/04/21 01/04/21 01/05/21 14:59 22:59 06:59 Intake Total 720 ml 600 ml Balance 720 ml 600 ml Labs: Laboratory Tests Test 01/05/21 07:50 01/05/21 11:55 01/05/21 17:23 01/05/21 19:14 Glucose (Fingerstick) 159 mg/dL (70-99) H 376 mg/dL (70-99) H 320 mg/dL (70-99) H 312 mg/dL (70-99) H Current Medications: I have reviewed the current psychotropics carefully including drug interactions. Risk benefit ratio favors no change other than as noted in my dictated progress note. Diagnosis: Problems: (1) Mild cognitive impairment (2) Schizoaffective disorder, bipolar type (3) Anxiety disorder, unspecified (4) Impulse disorder, unspecified (5) Bipolar disorder, curr episode mixed, severe, with psychotic features RAJIV VELAZQUEZ MD Jan 05, 2021 22:07
[2021-01-06 05:30] VITALS: BP 136/75
[2021-01-06] MEDS: LEVOTHYROXINE 112 MCG TABLET PO SCH (05:38)
[2021-01-06] MEDS: POLYETHYLENE GLYCOL 3350 17 GM PACKET. PO SCH (09:00)
[2021-01-06] MEDS: INSULIN LISPRO 300 UNITS/3 ML VIAL. SQ SCH ×3 (09:20→17:35)
[2021-01-06] MEDS: risperiDONE 1 MG TABLET. PO SCH (09:20)
[2021-01-06] MEDS: DIVALPROEX 125 MG CAP.SPRINK PO SCH ×2 (09:20→20:21)
[2021-01-06] MEDS: ASPIRIN ENTERIC COATED 81 MG TABLET.DR. PO SCH (09:20)
[2021-01-06] MEDS: MAGNESIUM CHLORIDE ER 64 MG TABLET.ER PO SCH (09:20)
[2021-01-06] MEDS: LACTOBACILLUS RHAMNOSUS GG 1 CAPSULE. PO SCH ×2 (09:20→20:21)
[2021-01-06] MEDS: PROPRANOLOL 20 MG TABLET. PO SCH (09:20)
[2021-01-06] MEDS: traZODone 50 MG TABLET. PO SCH ×3 (09:20→17:34)
[2021-01-06] MEDS: INSULIN GLARGINE SYRINGE. SQ SCH ×2 (09:20→20:22)
[2021-01-06] MEDS: CHOLECALCIFEROL (VITAMIN D3) 1,000 UNIT TABLET PO SCH (09:20)
[2021-01-06] MEDS: FUROSEMIDE 40 MG TABLET PO SCH (09:20)
[2021-01-06] MEDS: OXYBUTYNIN CHLORIDE 5 MG TABLET PO SCH (09:20)
[2021-01-06] MEDS: PANTOPRAZOLE 40 MG TABLET. PO SCH (09:20)
[2021-01-06] MEDS: clonazePAM 0.5 MG TABLET PO SCH ×3 (09:20→20:21)
[2021-01-06] MEDS: POTASSIUM CHLORIDE 10 MEQ TABLET.ER. PO SCH (09:20)
[2021-01-06 09:42] LABS: BASO # 0.1 x10^3/uL (0.0-0.2); BASO % 1 % (0-3); EOS # 0.3 x10^3/uL (0.0-0.7); EOS % 4 % (0-3); HEMATOCRIT 38.4 % (36.0-47.0); HEMOGLOBIN 12.8 g/dL (12.0-15.5); LYMPH # 2.6 x10^3/uL (1.0-4.8); LYMPH % 32 % (24-48); MEAN CORPUSCULAR HEMOGLOBIN 29 pg (25-35); MEAN CORPUSCULAR HGB CONC 33 g/dL (31-37); MEAN CORPUSCULAR VOLUME 85 fL (79-100); MONO # 0.9 x10^3/uL (0.0-1.1); MONO % 11 % (0-9); NEUT # 4.2 x10^3uL (1.8-7.7); NEUT % 53 % (31-73); PLATELET COUNT 197 x10^3/uL (140-400)
[2021-01-06 09:52] LABS: ALBUMIN 2.8 g/dL (3.4-5.0); ALBUMIN/GLOBULIN RATIO 0.7 (1.0-1.7); CREATININE 0.9 mg/dL (0.6-1.0); GFR 62.8; POTASSIUM 4.2 mmol/L (3.5-5.1); TOTAL BILIRUBIN 0.3 mg/dL (0.2-1.0); TOTAL PROTEIN 6.8 g/dL (6.4-8.2)
[2021-01-06 16:05] VITALS: BP 142/85
[2021-01-06] MEDS: MIRTAZAPINE 15 MG TABLET PO SCH (20:21)
[2021-01-06] MEDS: traZODone 100 MG TABLET. PO PRN (20:21)
--- NOTE | 2021-01-06 21:07 | PDOC ---
Exam Note: Donte Note: This note is a late entry for 01/03/2021 covers elements not covered in my initial note. Subjective: The patient was seen face to face in the morning of 01/03/2021 for a treatment team meeting with Reyna Mccoy, Cande Serrato and Marixa (child welfare social worker), Yvonne Chen, activity therapy and Elziabeth COPELAND, discussed and reviewed the chart. She slept 4-1/2 hours previous night. The patient has been appropriate with nursing staff, somewhat labile in groups, less staring at others threateningly as compared to before. He is compliant with medications. Review of Systems: No CV, , pulmonary, eye, ENT system symptoms on review. Mental Status Exam: The patient is reasonably oriented. Speech is moderate latency. Often response is monosyllabic. Abstraction is fair. Computation is impaired. Language function is intact. Mood and affect withdrawn. Laboratory Data: Reviewed. Impression: Schizoaffective disorder, bipolar type, mixed with psychotic features. Anxiety disorder unspecified. Impulse control disorder unspecified. Plan: No change from initial note. Assessment: Vital Signs/I&O: Vital Signs Date Time Temp Pulse Resp B/P (MAP) Pulse Ox O2 Delivery O2 Flow Rate FiO2 01/06/21 16:05 97.4 67 17 142/85 (104) 98 Room Air I & O 01/05/21 01/05/21 01/06/21 15:00 23:00 07:00 Intake Total 1080 ml 480 ml 240 ml Balance 1080 ml 480 ml 240 ml Labs: Laboratory Tests Test 01/06/21 07:37 01/06/21 08:50 01/06/21 12:16 01/06/21 17:04 Glucose (Fingerstick) 267 mg/dL (70-99) H 416 mg/dL (70-99) H 259 mg/dL (70-99) H White Blood Count 8.0 x10^3/uL (4.0-11.0) Red Blood Count 4.50 x10^6/uL (3.50-5.40) Hemoglobin 12.8 g/dL (12.0-15.5) Hematocrit 38.4 % (36.0-47.0) Mean Corpuscular Volume 85 fL (79-100) Mean Corpuscular Hemoglobin 29 pg (25-35) Mean Corpuscular Hemoglobin Concent 33 g/dL (31-37) Red Cell Distribution Width 13.0 % (11.5-14.5) Platelet Count 197 x10^3/uL (140-400) Neutrophils (%) (Auto) 53 % (31-73) Lymphocytes (%) (Auto) 32 % (24-48) Monocytes (%) (Auto) 11 % (0-9) H Eosinophils (%) (Auto) 4 % (0-3) H Basophils (%) (Auto) 1 % (0-3) Neutrophils # (Auto) 4.2 x10^3uL (1.8-7.7) Lymphocytes # (Auto) 2.6 x10^3/uL (1.0-4.8) Monocytes # (Auto) 0.9 x10^3/uL (0.0-1.1) Eosinophils # (Auto) 0.3 x10^3/uL (0.0-0.7) Basophils # (Auto) 0.1 x10^3/uL (0.0-0.2) Sodium Level 137 mmol/L (136-145) Potassium Level 4.2 mmol/L (3.5-5.1) Chloride Level 101 mmol/L (98-107) Carbon Dioxide Level 24 mmol/L (21-32) Anion Gap 12 (6-14) Blood Urea Nitrogen 22 mg/dL (7-20) H Creatinine 0.9 mg/dL (0.6-1.0) Estimated GFR (Cockcroft-Gault) 62.8 BUN/Creatinine Ratio 24 (6-20) H Glucose Level 305 mg/dL (70-99) H Calcium Level 9.0 mg/dL (8.5-10.1) Total Bilirubin 0.3 mg/dL (0.2-1.0) Aspartate Amino Transferase (AST) 16 U/L (15-37) Alanine Aminotransferase (ALT) 22 U/L (14-59) Alkaline Phosphatase 122 U/L (46-116) H Total Protein 6.8 g/dL (6.4-8.2) Albumin 2.8 g/dL (3.4-5.0) L Albumin/Globulin Ratio 0.7 (1.0-1.7) L Test 01/06/21 19:09 Glucose (Fingerstick) 320 mg/dL (70-99) H Current Medications: Meds: Laboratory Tests Test 01/06/21 07:37 01/06/21 08:50 01/06/21 12:16 01/06/21 17:04 Glucose (Fingerstick) 267 mg/dL 416 mg/dL 259 mg/dL White Blood Count 8.0 x10^3/uL Red Blood Count 4.50 x10^6/uL Hemoglobin 12.8 g/dL Hematocrit 38.4 % Mean Corpuscular Volume 85 fL Mean Corpuscular Hemoglobin 29 pg Mean Corpuscular Hemoglobin Concent 33 g/dL Red Cell Distribution Width 13.0 % Platelet Count 197 x10^3/uL Neutrophils (%) (Auto) 53 % Lymphocytes (%) (Auto) 32 % Monocytes (%) (Auto) 11 % Eosinophils (%) (Auto) 4 % Basophils (%) (Auto) 1 % Neutrophils # (Auto) 4.2 x10^3uL Lymphocytes # (Auto) 2.6 x10^3/uL Monocytes # (Auto) 0.9 x10^3/uL Eosinophils # (Auto) 0.3 x10^3/uL Basophils # (Auto) 0.1 x10^3/uL Sodium Level 137 mmol/L Potassium Level 4.2 mmol/L Chloride Level 101 mmol/L Carbon Dioxide Level 24 mmol/L Anion Gap 12 Blood Urea Nitrogen 22 mg/dL Creatinine 0.9 mg/dL Estimated GFR (Cockcroft-Gault) 62.8 BUN/Creatinine Ratio 24 Glucose Level 305 mg/dL Calcium Level 9.0 mg/dL Total Bilirubin 0.3 mg/dL Aspartate Amino Transf (AST/SGOT) 16 U/L Alanine Aminotransferase (ALT/SGPT) 22 U/L Alkaline Phosphatase 122 U/L Total Protein 6.8 g/dL Albumin 2.8 g/dL Albumin/Globulin Ratio 0.7 Test 01/06/21 19:09 Glucose (Fingerstick) 320 mg/dL Current Medications Medications (Trade) Dose Ordered Sig/Leonides Route PRN Reason Start Time Stop Time Status Last Admin Dose Admin Multi-Ingredient Ointment (Analgesic Story) 1 swathi PRN QID PRN TP MUSCLE PAIN 11/21/20 21:00 Al Hydroxide/Mg Hydroxide (Mylanta Plus Xs) 15 ml PRN AFTMEALHC PRN PO DYSPEPSIA 11/21/20 21:00 2/26/21 01:37 Magnesium Hydroxide (Milk Of Magnesia) 2,400 mg PRN QHS PRN PO 1ST CHOICE CONSTIPATION 11/21/20 21:00 Acetaminophen (Tylenol) 650 mg PRN Q4HRS PRN PO MILD PAIN / TEMP > 100.3'F 11/21/20 21:45 12/06/20 22:17 Amoxicillin/ Clavulanate Potassium (Augmentin 875/ 125mg) 1 tab BID PO 11/22/20 09:00 11/24/20 21:01 DC 11/24/20 20:55 Aspirin (Aspirin Enteric Coated) 81 mg DAILY PO 11/22/20 09:00 01/06/21 09:20 Bisacodyl (Dulcolax Tab) 5 mg PRN DAILY PRN PO 2ND CHOICE CONSTIPATION 11/21/20 21:45 Furosemide (Lasix) 40 mg DAILY PO 11/22/20 09:00 01/06/21 09:20 Acetaminophen/ Hydrocodone Bitart (Lortab 5/325) 1 tab PRN BID PRN PO mod-sev PAIN 11/21/20 21:45 12/08/20 17:03 DC 12/08/20 09:20 Ibuprofen (Motrin) 200 mg PRN Q6HRS PRN PO MILD PAIN / TEMP > 100.3'F 11/21/20 21:45 Cancel Albuterol/ Ipratropium (Duoneb) 3 ml PRN BID PRN NEB SHORTNESS OF BREATH 11/21/20 21:45 Levothyroxine Sodium (Synthroid) 112 mcg DAILY06 PO 11/22/20 06:00 01/06/21 05:38 Lorazepam (Ativan) 0.5 mg TID PO 11/21/20 22:00 12/03/20 18:47 DC 12/03/20 13:59 Zolpidem Tartrate (Ambien) 5 mg HS PO 11/21/20 22:00 11/27/20 18:02 DC 11/26/20 20:44 Betamethasone Dipropion Augmented (Betamethasone Dp Aug 0.05% Cream) 1 swathi PRN BID PRN TP RASH 11/21/20 22:15 Multi-Ingred Cream/Lotion/Oil/ Oint (Hydrocerin) 1 swathi PRN BID PRN TP Dry Hands 11/21/20 22:00 Guaifenesin (Robitussin Dm) 10 ml PRN Q8HRS PRN PO COUGH 11/21/20 22:00 12/23/20 08:40 Insulin Human Lispro (HumaLOG) 20 units TIDWMEALS SQ 11/22/20 08:00 01/06/21 12:24 DC 01/06/21 09:20 Insulin Glargine (Lantus Syringe) 30 unit BID SQ 11/21/20 22:00 01/06/21 12:24 DC 01/06/21 09:20 Magnesium Chloride (Mag Delay) 64 mg DAILY PO 11/22/20 09:00 01/06/21 09:20 Non-Formulary Medication (Menthol (Biofreeze)) 1 swathi QID PRN TP MUSCLE PAIN 11/21/20 21:45 UNV Pantoprazole Sodium (Protonix) 40 mg DAILY PO 11/22/20 09:00 01/06/21 09:20 Oxybutynin Chloride (Ditropan) 5 mg DAILY PO 11/22/20 09:00 01/06/21 09:20 Polyethylene Glycol (miraLAX) 17 gm DAILY PO 11/22/20 09:00 01/04/21 08:21 Potassium Chloride (Klor-Con) 10 meq DAILY PO 11/22/20 09:00 01/06/21 09:20 Propranolol HCl (Inderal) 40 mg DAILY PO 11/22/20 09:00 01/06/21 09:20 Quetiapine Fumarate (SEROquel) 600 mg HS PO 11/21/20 22:15 12/03/20 18:47 DC 12/02/20 20:08 Saliva Substitute (Biotene Moisturizing Mouth) 2 spray PRN TID PRN PO DRY MOUTH 11/21/20 22:15 Non-Formulary Medication (Semaglutide (Ozempic)) 1 mg QFR SQ 11/23/20 16:00 12/09/20 10:20 DC Pentoxifylline (TRENtal) 400 mg TIDWMEALS PO 11/22/20 08:00 01/02/21 18:02 DC 01/02/21 12:47 Vitamin D (Vitamin D3) 2,000 unit DAILY PO 11/22/20 09:00 01/06/21 09:20 Lactobacillus Rhamnosus (Culturelle) 1 cap BID PO 11/22/20 09:00 01/06/21 20:21 Mirtazapine (Remeron) 7.5 mg QHS PO 11/27/20 21:00 12/11/20 17:03 DC 12/10/20 20:08 Divalproex Sodium (Depakote Er) 500 mg QHS PO 11/28/20 21:00 12/01/20 17:12 DC 11/30/20 20:45 Divalproex Sodium (Depakote Er) 1,000 mg QHS PO 12/01/20 21:00 12/21/20 19:55 DC 12/20/20 20:28 Bupropion HCl (Wellbutrin Xl) 150 mg DAILY PO 12/03/20 09:00 12/09/20 16:24 DC 12/09/20 08:14 Quetiapine Fumarate (SEROquel) 200 mg TID PO 12/03/20 21:00 12/06/20 11:47 DC 12/06/20 07:48 Clonazepam (KlonoPIN) 0.5 mg TID PO 12/03/20 21:00 01/06/21 20:21 Trazodone HCl (Desyrel) 100 mg PRN QHS PRN PO INSOMNIA, MRX1 12/04/20 19:15 01/06/21 20:21 Risperidone (RisperDAL) 0.5 mg 0900,1300,1700 PO 12/06/20 13:00 12/07/20 17:12 DC 12/07/20 09:00 Risperidone (RisperDAL) 1.5 mg DAILY PO 12/08/20 09:00 12/07/20 19:50 DC Risperidone (RisperDAL) 1.5 mg DAILY PO 12/07/20 20:00 12/09/20 16:24 DC 12/09/20 08:16 Acetaminophen/ Hydrocodone Bitart (Lortab 5/325) 1 tab PRN TID PRN PO mod-sev PAIN 12/08/20 17:00 01/02/21 20:35 Risperidone (RisperDAL) 2 mg DAILY PO 12/10/20 09:00 12/13/20 12:47 DC 12/13/20 09:29 Mirtazapine (Remeron) 15 mg QHS PO 12/11/20 21:00 01/06/21 20:21 Risperidone (RisperDAL) 3 mg DAILY PO 12/14/20 09:00 12/23/20 07:12 DC 12/22/20 08:31 Risperidone (RisperDAL CONSTA) 25 mg Q2WKS IM 12/14/20 09:00 12/28/20 09:01 Quetiapine Fumarate (SEROquel) 50 mg PRN Q2HR PRN PO ANXIETY/AGITATION, 2ND CHOICE 12/16/20 04:15 12/16/20 04:41 Lorazepam (Ativan) 0.5 mg PRN Q2HR PRN PO ANXIETY/AGITATION, 1ST CHOICE 12/16/20 04:15 12/23/20 17:16 Trazodone HCl (Desyrel) 25 mg 0900,1300,1700 PO 12/18/20 09:00 12/23/20 16:59 DC 12/23/20 12:29 Temazepam (Restoril) 15 mg PRN QHS PRN PO INSOMNIA, MRX1, 1ST CHOICE 12/19/20 18:15 12/22/20 09:00 DC 12/21/20 19:59 Divalproex Sodium (Depakote Sprinkles) 500 mg BID PO 12/21/20 21:00 01/06/21 20:21 Risperidone (RisperDAL) 3 mg DAILY PO 12/23/20 09:00 01/06/21 09:20 Trazodone HCl (Desyrel) 25 mg DAILY PO 12/24/20 09:00 01/06/21 09:20 Trazodone HCl (Desyrel) 50 mg 1300,1700 PO 12/23/20 17:00 01/06/21 17:34 Insulin Glargine (Lantus Syringe) 40 unit BID SQ 01/06/21 21:00 01/06/21 20:22 Insulin Human Lispro (HumaLOG) 25 units TIDWMEALS SQ 01/06/21 12:30 01/06/21 17:35 Current Medications Medications (Trade) Dose Ordered Sig/Leonides Route PRN Reason Start Time Stop Time Status Last Admin Dose Admin Insulin Glargine (Lantus Syringe) 40 unit BID SQ 01/06/21 21:00 01/06/21 20:22 Insulin Human Lispro (HumaLOG) 25 units TIDWMEALS SQ 01/06/21 12:30 01/06/21 17:35 I have reviewed the current psychotropics carefully including drug interactions. Risk benefit ratio favors no change other than as noted in my dictated progress note. Diagnosis: Problems: (1) Mild cognitive impairment (2) Schizoaffective disorder, bipolar type (3) Anxiety disorder, unspecified (4) Impulse disorder, unspecified (5) Bipolar disorder, curr episode mixed, severe, with psychotic features RAJIV VELAZQUEZ MD Jan 06, 2021 21:07
--- NOTE | 2021-01-06 21:31 | PDOC ---
Exam Note: Donte Note: Please also refer to the separate dictated note~for this date of service dictated separately.~Patient seen individually. Discussed the patient with Nursing staff reviewed the chart.~Reviewed interim history and current functioning. Reviewed vital signs,~Labs/ Radiology~and current medications noted below. Continue current treatment with the changes noted in the dictated addendum note Assessment: Vital Signs/I&O: Vital Signs Date Time Temp Pulse Resp B/P (MAP) Pulse Ox O2 Delivery O2 Flow Rate FiO2 01/06/21 16:05 97.4 67 17 142/85 (104) 98 Room Air I & O 01/05/21 01/05/21 01/06/21 15:00 23:00 07:00 Intake Total 1080 ml 480 ml 240 ml Balance 1080 ml 480 ml 240 ml Labs: Laboratory Tests Test 01/06/21 07:37 01/06/21 08:50 01/06/21 12:16 01/06/21 17:04 Glucose (Fingerstick) 267 mg/dL (70-99) H 416 mg/dL (70-99) H 259 mg/dL (70-99) H White Blood Count 8.0 x10^3/uL (4.0-11.0) Red Blood Count 4.50 x10^6/uL (3.50-5.40) Hemoglobin 12.8 g/dL (12.0-15.5) Hematocrit 38.4 % (36.0-47.0) Mean Corpuscular Volume 85 fL (79-100) Mean Corpuscular Hemoglobin 29 pg (25-35) Mean Corpuscular Hemoglobin Concent 33 g/dL (31-37) Red Cell Distribution Width 13.0 % (11.5-14.5) Platelet Count 197 x10^3/uL (140-400) Neutrophils (%) (Auto) 53 % (31-73) Lymphocytes (%) (Auto) 32 % (24-48) Monocytes (%) (Auto) 11 % (0-9) H Eosinophils (%) (Auto) 4 % (0-3) H Basophils (%) (Auto) 1 % (0-3) Neutrophils # (Auto) 4.2 x10^3uL (1.8-7.7) Lymphocytes # (Auto) 2.6 x10^3/uL (1.0-4.8) Monocytes # (Auto) 0.9 x10^3/uL (0.0-1.1) Eosinophils # (Auto) 0.3 x10^3/uL (0.0-0.7) Basophils # (Auto) 0.1 x10^3/uL (0.0-0.2) Sodium Level 137 mmol/L (136-145) Potassium Level 4.2 mmol/L (3.5-5.1) Chloride Level 101 mmol/L (98-107) Carbon Dioxide Level 24 mmol/L (21-32) Anion Gap 12 (6-14) Blood Urea Nitrogen 22 mg/dL (7-20) H Creatinine 0.9 mg/dL (0.6-1.0) Estimated GFR (Cockcroft-Gault) 62.8 BUN/Creatinine Ratio 24 (6-20) H Glucose Level 305 mg/dL (70-99) H Calcium Level 9.0 mg/dL (8.5-10.1) Total Bilirubin 0.3 mg/dL (0.2-1.0) Aspartate Amino Transferase (AST) 16 U/L (15-37) Alanine Aminotransferase (ALT) 22 U/L (14-59) Alkaline Phosphatase 122 U/L (46-116) H Total Protein 6.8 g/dL (6.4-8.2) Albumin 2.8 g/dL (3.4-5.0) L Albumin/Globulin Ratio 0.7 (1.0-1.7) L Test 01/06/21 19:09 Glucose (Fingerstick) 320 mg/dL (70-99) H Current Medications: Meds: Current Medications Medications (Trade) Dose Ordered Sig/Leonidse Route PRN Reason Start Time Stop Time Status Last Admin Dose Admin Insulin Glargine (Lantus Syringe) 40 unit BID SQ 01/06/21 21:00 01/06/21 20:22 Insulin Human Lispro (HumaLOG) 25 units TIDWMEALS SQ 01/06/21 12:30 01/06/21 17:35 I have reviewed the current psychotropics carefully including drug interactions. Risk benefit ratio favors no change other than as noted in my dictated progress note. Diagnosis: Problems: (1) Mild cognitive impairment (2) Schizoaffective disorder, bipolar type (3) Anxiety disorder, unspecified (4) Impulse disorder, unspecified (5) Bipolar disorder, curr episode mixed, severe, with psychotic features RAJIV VELAZQUEZ MD Jan 06, 2021 21:31
--- NOTE | 2021-01-06 21:31 | PDOC ---
Exam Note: Donte Note: This note is a late entry for 01/04/2021 covers elements not covered in my initial note. Subjective: The patient was seen face to face in the evening of 01/04/2021 with Elizabeth COPELAND. She slept 4-1/2 hours previous night. Overall the patient has been somewhat withdrawn, anxious, restless. She is not wanting her Depakote because she states it makes her hair fall. We will have to reassess this. Review of Systems: No CV, , pulmonary, eye, ENT system symptoms on review. Mental Status Exam: The patient is oriented to herself and situation. Speech is coherent, has some latency. Abstraction is fair. Computation is impaired. Language function is intact. Mood and affect withdrawn. Laboratory Data: Reviewed. Impression: Schizoaffective disorder, bipolar type, mixed with psychotic features. Anxiety disorder unspecified. Impulse control disorder unspecified. Plan: No change from initial note. We will reassess the Depakote. Assessment: Vital Signs/I&O: Vital Signs Date Time Temp Pulse Resp B/P (MAP) Pulse Ox O2 Delivery O2 Flow Rate FiO2 01/06/21 16:05 97.4 67 17 142/85 (104) 98 Room Air I & O 01/05/21 01/05/21 01/06/21 15:00 23:00 07:00 Intake Total 1080 ml 480 ml 240 ml Balance 1080 ml 480 ml 240 ml Labs: Laboratory Tests Test 01/06/21 07:37 01/06/21 08:50 01/06/21 12:16 01/06/21 17:04 Glucose (Fingerstick) 267 mg/dL (70-99) H 416 mg/dL (70-99) H 259 mg/dL (70-99) H White Blood Count 8.0 x10^3/uL (4.0-11.0) Red Blood Count 4.50 x10^6/uL (3.50-5.40) Hemoglobin 12.8 g/dL (12.0-15.5) Hematocrit 38.4 % (36.0-47.0) Mean Corpuscular Volume 85 fL (79-100) Mean Corpuscular Hemoglobin 29 pg (25-35) Mean Corpuscular Hemoglobin Concent 33 g/dL (31-37) Red Cell Distribution Width 13.0 % (11.5-14.5) Platelet Count 197 x10^3/uL (140-400) Neutrophils (%) (Auto) 53 % (31-73) Lymphocytes (%) (Auto) 32 % (24-48) Monocytes (%) (Auto) 11 % (0-9) H Eosinophils (%) (Auto) 4 % (0-3) H Basophils (%) (Auto) 1 % (0-3) Neutrophils # (Auto) 4.2 x10^3uL (1.8-7.7) Lymphocytes # (Auto) 2.6 x10^3/uL (1.0-4.8) Monocytes # (Auto) 0.9 x10^3/uL (0.0-1.1) Eosinophils # (Auto) 0.3 x10^3/uL (0.0-0.7) Basophils # (Auto) 0.1 x10^3/uL (0.0-0.2) Sodium Level 137 mmol/L (136-145) Potassium Level 4.2 mmol/L (3.5-5.1) Chloride Level 101 mmol/L (98-107) Carbon Dioxide Level 24 mmol/L (21-32) Anion Gap 12 (6-14) Blood Urea Nitrogen 22 mg/dL (7-20) H Creatinine 0.9 mg/dL (0.6-1.0) Estimated GFR (Cockcroft-Gault) 62.8 BUN/Creatinine Ratio 24 (6-20) H Glucose Level 305 mg/dL (70-99) H Calcium Level 9.0 mg/dL (8.5-10.1) Total Bilirubin 0.3 mg/dL (0.2-1.0) Aspartate Amino Transferase (AST) 16 U/L (15-37) Alanine Aminotransferase (ALT) 22 U/L (14-59) Alkaline Phosphatase 122 U/L (46-116) H Total Protein 6.8 g/dL (6.4-8.2) Albumin 2.8 g/dL (3.4-5.0) L Albumin/Globulin Ratio 0.7 (1.0-1.7) L Test 01/06/21 19:09 Glucose (Fingerstick) 320 mg/dL (70-99) H Current Medications: Meds: Laboratory Tests Test 01/06/21 07:37 01/06/21 08:50 01/06/21 12:16 01/06/21 17:04 Glucose (Fingerstick) 267 mg/dL 416 mg/dL 259 mg/dL White Blood Count 8.0 x10^3/uL Red Blood Count 4.50 x10^6/uL Hemoglobin 12.8 g/dL Hematocrit 38.4 % Mean Corpuscular Volume 85 fL Mean Corpuscular Hemoglobin 29 pg Mean Corpuscular Hemoglobin Concent 33 g/dL Red Cell Distribution Width 13.0 % Platelet Count 197 x10^3/uL Neutrophils (%) (Auto) 53 % Lymphocytes (%) (Auto) 32 % Monocytes (%) (Auto) 11 % Eosinophils (%) (Auto) 4 % Basophils (%) (Auto) 1 % Neutrophils # (Auto) 4.2 x10^3uL Lymphocytes # (Auto) 2.6 x10^3/uL Monocytes # (Auto) 0.9 x10^3/uL Eosinophils # (Auto) 0.3 x10^3/uL Basophils # (Auto) 0.1 x10^3/uL Sodium Level 137 mmol/L Potassium Level 4.2 mmol/L Chloride Level 101 mmol/L Carbon Dioxide Level 24 mmol/L Anion Gap 12 Blood Urea Nitrogen 22 mg/dL Creatinine 0.9 mg/dL Estimated GFR (Cockcroft-Gault) 62.8 BUN/Creatinine Ratio 24 Glucose Level 305 mg/dL Calcium Level 9.0 mg/dL Total Bilirubin 0.3 mg/dL Aspartate Amino Transf (AST/SGOT) 16 U/L Alanine Aminotransferase (ALT/SGPT) 22 U/L Alkaline Phosphatase 122 U/L Total Protein 6.8 g/dL Albumin 2.8 g/dL Albumin/Globulin Ratio 0.7 Test 01/06/21 19:09 Glucose (Fingerstick) 320 mg/dL Current Medications Medications (Trade) Dose Ordered Sig/Leonides Route PRN Reason Start Time Stop Time Status Last Admin Dose Admin Multi-Ingredient Ointment (Analgesic [place]) 1 swathi PRN QID PRN TP MUSCLE PAIN 11/21/20 21:00 Al Hydroxide/Mg Hydroxide (Mylanta Plus Xs) 15 ml PRN AFTMEALHC PRN PO DYSPEPSIA 11/21/20 21:00 01/04/21 01:37 Magnesium Hydroxide (Milk Of Magnesia) 2,400 mg PRN QHS PRN PO 1ST CHOICE CONSTIPATION 11/21/20 21:00 Acetaminophen (Tylenol) 650 mg PRN Q4HRS PRN PO MILD PAIN / TEMP > 100.3'F 11/21/20 21:45 12/06/20 22:17 Amoxicillin/ Clavulanate Potassium (Augmentin 875/ 125mg) 1 tab BID PO 11/22/20 09:00 11/24/20 21:01 DC 11/24/20 20:55 Aspirin (Aspirin Enteric Coated) 81 mg DAILY PO 11/22/20 09:00 01/06/21 09:20 Bisacodyl (Dulcolax Tab) 5 mg PRN DAILY PRN PO 2ND CHOICE CONSTIPATION 11/21/20 21:45 Furosemide (Lasix) 40 mg DAILY PO 11/22/20 09:00 01/06/21 09:20 Acetaminophen/ Hydrocodone Bitart (Lortab 5/325) 1 tab PRN BID PRN PO mod-sev PAIN 11/21/20 21:45 12/08/20 17:03 DC 12/08/20 09:20 Ibuprofen (Motrin) 200 mg PRN Q6HRS PRN PO MILD PAIN / TEMP > 100.3'F 11/21/20 21:45 Cancel Albuterol/ Ipratropium (Duoneb) 3 ml PRN BID PRN NEB SHORTNESS OF BREATH 11/21/20 21:45 Levothyroxine Sodium (Synthroid) 112 mcg DAILY06 PO 11/22/20 06:00 01/06/21 05:38 Lorazepam (Ativan) 0.5 mg TID PO 11/21/20 22:00 12/03/20 18:47 DC 12/03/20 13:59 Zolpidem Tartrate (Ambien) 5 mg HS PO 11/21/20 22:00 11/27/20 18:02 DC 11/26/20 20:44 Betamethasone Dipropion Augmented (Betamethasone Dp Aug 0.05% Cream) 1 swathi PRN BID PRN TP RASH 11/21/20 22:15 Multi-Ingred Cream/Lotion/Oil/ Oint (Hydrocerin) 1 swathi PRN BID PRN TP Dry Hands 11/21/20 22:00 Guaifenesin (Robitussin Dm) 10 ml PRN Q8HRS PRN PO COUGH 11/21/20 22:00 12/23/20 08:40 Insulin Human Lispro (HumaLOG) 20 units TIDWMEALS SQ 11/22/20 08:00 01/06/21 12:24 DC 01/06/21 09:20 Insulin Glargine (Lantus Syringe) 30 unit BID SQ 11/21/20 22:00 01/06/21 12:24 DC 01/06/21 09:20 Magnesium Chloride (Mag Delay) 64 mg DAILY PO 11/22/20 09:00 01/06/21 09:20 Non-Formulary Medication (Menthol (Biofreeze)) 1 swathi QID PRN TP MUSCLE PAIN 11/21/20 21:45 UNV Pantoprazole Sodium (Protonix) 40 mg DAILY PO 11/22/20 09:00 01/06/21 09:20 Oxybutynin Chloride (Ditropan) 5 mg DAILY PO 11/22/20 09:00 01/06/21 09:20 Polyethylene Glycol (miraLAX) 17 gm DAILY PO 11/22/20 09:00 01/04/21 08:21 Potassium Chloride (Klor-Con) 10 meq DAILY PO 11/22/20 09:00 01/06/21 09:20 Propranolol HCl (Inderal) 40 mg DAILY PO 11/22/20 09:00 01/06/21 09:20 Quetiapine Fumarate (SEROquel) 600 mg HS PO 11/21/20 22:15 12/03/20 18:47 DC 12/02/20 20:08 Saliva Substitute (Biotene Moisturizing Mouth) 2 spray PRN TID PRN PO DRY MOUTH 11/21/20 22:15 Non-Formulary Medication (Semaglutide (Ozempic)) 1 mg QFR SQ 11/23/20 16:00 12/09/20 10:20 DC Pentoxifylline (TRENtal) 400 mg TIDWMEALS PO 11/22/20 08:00 01/02/21 18:02 DC 01/02/21 12:47 Vitamin D (Vitamin D3) 2,000 unit DAILY PO 11/22/20 09:00 01/06/21 09:20 Lactobacillus Rhamnosus (Culturelle) 1 cap BID PO 11/22/20 09:00 01/06/21 20:21 Mirtazapine (Remeron) 7.5 mg QHS PO 11/27/20 21:00 12/11/20 17:03 DC 12/10/20 20:08 Divalproex Sodium (Depakote Er) 500 mg QHS PO 11/28/20 21:00 12/01/20 17:12 DC 11/30/20 20:45 Divalproex Sodium (Depakote Er) 1,000 mg QHS PO 12/01/20 21:00 12/21/20 19:55 DC 12/20/20 20:28 Bupropion HCl (Wellbutrin Xl) 150 mg DAILY PO 12/03/20 09:00 12/09/20 16:24 DC 12/09/20 08:14 Quetiapine Fumarate (SEROquel) 200 mg TID PO 12/03/20 21:00 12/06/20 11:47 DC 12/06/20 07:48 Clonazepam (KlonoPIN) 0.5 mg TID PO 12/03/20 21:00 01/06/21 20:21 Trazodone HCl (Desyrel) 100 mg PRN QHS PRN PO INSOMNIA, MRX1 12/04/20 19:15 01/06/21 20:21 Risperidone (RisperDAL) 0.5 mg 0900,1300,1700 PO 12/06/20 13:00 12/07/20 17:12 DC 12/07/20 09:00 Risperidone (RisperDAL) 1.5 mg DAILY PO 12/08/20 09:00 12/07/20 19:50 DC Risperidone (RisperDAL) 1.5 mg DAILY PO 12/07/20 20:00 12/09/20 16:24 DC 12/09/20 08:16 Acetaminophen/ Hydrocodone Bitart (Lortab 5/325) 1 tab PRN TID PRN PO mod-sev PAIN 12/08/20 17:00 01/02/21 20:35 Risperidone (RisperDAL) 2 mg DAILY PO 12/10/20 09:00 12/13/20 12:47 DC 12/13/20 09:29 Mirtazapine (Remeron) 15 mg QHS PO 12/11/20 21:00 01/06/21 20:21 Risperidone (RisperDAL) 3 mg DAILY PO 12/14/20 09:00 12/23/20 07:12 DC 12/22/20 08:31 Risperidone (RisperDAL CONSTA) 25 mg Q2WKS IM 12/14/20 09:00 12/28/20 09:01 Quetiapine Fumarate (SEROquel) 50 mg PRN Q2HR PRN PO ANXIETY/AGITATION, 2ND CHOICE 12/16/20 04:15 12/16/20 04:41 Lorazepam (Ativan) 0.5 mg PRN Q2HR PRN PO ANXIETY/AGITATION, 1ST CHOICE 12/16/20 04:15 12/23/20 17:16 Trazodone HCl (Desyrel) 25 mg 0900,1300,1700 PO 12/18/20 09:00 12/23/20 16:59 DC 12/23/20 12:29 Temazepam (Restoril) 15 mg PRN QHS PRN PO INSOMNIA, MRX1, 1ST CHOICE 12/19/20 18:15 12/22/20 09:00 DC 12/21/20 19:59 Divalproex Sodium (Depakote Sprinkles) 500 mg BID PO 12/21/20 21:00 01/06/21 20:21 Risperidone (RisperDAL) 3 mg DAILY PO 12/23/20 09:00 01/06/21 09:20 Trazodone HCl (Desyrel) 25 mg DAILY PO 12/24/20 09:00 01/06/21 09:20 Trazodone HCl (Desyrel) 50 mg 1300,1700 PO 12/23/20 17:00 01/06/21 17:34 Insulin Glargine (Lantus Syringe) 40 unit BID SQ 01/06/21 21:00 01/06/21 20:22 Insulin Human Lispro (HumaLOG) 25 units TIDWMEALS SQ 01/06/21 12:30 01/06/21 17:35 Current Medications Medications (Trade) Dose Ordered Sig/Leonides Route PRN Reason Start Time Stop Time Status Last Admin Dose Admin Insulin Glargine (Lantus Syringe) 40 unit BID SQ 01/06/21 21:00 01/06/21 20:22 Insulin Human Lispro (HumaLOG) 25 units TIDWMEALS SQ 01/06/21 12:30 01/06/21 17:35 I have reviewed the current psychotropics carefully including drug interactions. Risk benefit ratio favors no change other than as noted in my dictated progress note. Diagnosis: Problems: (1) Mild cognitive impairment (2) Schizoaffective disorder, bipolar type (3) Anxiety disorder, unspecified (4) Impulse disorder, unspecified (5) Bipolar disorder, curr episode mixed, severe, with psychotic features RAJIV VELAZQUEZ MD Jan 06, 2021 21:31
[2021-01-06] MEDS ORDERED: DIVA125C2 PO (23:36)
[2021-01-06] MEDS ORDERED: LACT1CAP21 PO (23:37)
[2021-01-06] MEDS ORDERED: MAG-124 PO (23:38)
[2021-01-06] MEDS ORDERED: MAGN64TA7 PO (23:43)
[2021-01-06] MEDS ORDERED: MAGN24003 PO (23:44)
[2021-01-06] MEDS ORDERED: METH57CR17 TP (23:44)
[2021-01-06] MEDS ORDERED: MIRT15TA3 PO (23:45)
[2021-01-06] MEDS ORDERED: QUET50TA5 PO (23:46)
[2021-01-06] MEDS ORDERED: CLON0.5T4 PO (23:46)
[2021-01-06] MEDS ORDERED: RISP25DI IM (23:47)
[2021-01-06] MEDS ORDERED: RISP3TAB23 PO (23:47)
[2021-01-06] MEDS ORDERED: TRAZ-120 PO ×2 (23:48→23:49)
[2021-01-06] MEDS ORDERED: TRAZ-125 PO (23:48)
[2021-01-07 06:04] VITALS: BP 130/71
[2021-01-07] MEDS: POTASSIUM CHLORIDE 10 MEQ TABLET.ER. PO SCH (06:16)
[2021-01-07] MEDS: LEVOTHYROXINE 112 MCG TABLET PO SCH (06:16)
[2021-01-07] MEDS: PANTOPRAZOLE 40 MG TABLET. PO SCH (06:16)
[2021-01-07] MEDS: ASPIRIN ENTERIC COATED 81 MG TABLET.DR. PO SCH (06:16)
[2021-01-07] MEDS: MAGNESIUM CHLORIDE ER 64 MG TABLET.ER PO SCH (06:16)
[2021-01-07] MEDS: LACTOBACILLUS RHAMNOSUS GG 1 CAPSULE. PO SCH (06:16)
[2021-01-07] MEDS: FUROSEMIDE 40 MG TABLET PO SCH (06:17)
[2021-01-07] MEDS: OXYBUTYNIN CHLORIDE 5 MG TABLET PO SCH (06:17)
[2021-01-07] MEDS: traZODone 50 MG TABLET. PO SCH (06:17)
[2021-01-07] MEDS: CHOLECALCIFEROL (VITAMIN D3) 1,000 UNIT TABLET PO SCH (06:17)
[2021-01-07] MEDS: risperiDONE 1 MG TABLET. PO SCH (06:18)
[2021-01-07] MEDS: POLYETHYLENE GLYCOL 3350 17 GM PACKET. PO SCH (06:18)
[2021-01-07] MEDS: DIVALPROEX 125 MG CAP.SPRINK PO SCH (06:18)
[2021-01-07] MEDS: clonazePAM 0.5 MG TABLET PO SCH (06:19)
[2021-01-07 06:20] VITALS: BP 130/71
[2021-01-07] MEDS: PROPRANOLOL 20 MG TABLET. PO SCH (06:20)
[2021-01-07] MEDS: INSULIN LISPRO 300 UNITS/3 ML VIAL. SQ SCH (08:51)
[2021-01-07] MEDS: INSULIN GLARGINE SYRINGE. SQ SCH (08:52)
--- NOTE | 2021-01-07 21:12 | PDOC ---
Exam Note: Donte Note: This note is a late entry for 01/05/2021 covers elements not covered in my initial note. Subjective: The patient was seen face to face in the evening of 01/05/2021 with Deisy COPELAND. She slept 7-1/4 hours previous night. Doppler left lower extremity is negative. She is pleasant, cooperative, less paranoid, less staring down staff. Review of Systems: No CV, , pulmonary, eye, ENT system symptoms on review. Mental Status Exam: The patient is oriented to herself and situation. She is pleasant, verbal, interactive. Speech is coherent, has some latency. Abstr action is fair. Computation is impaired. Language function is intact. Mood and affect less paranoid. No suicidal or homicidal ideation. Laboratory Data: Reviewed. Impression: Schizoaffective disorder, bipolar type, mixed with psychotic features. Anxiety disorder unspecified. Impulse control disorder unspecified. Plan: No change from initial note. Assessment: Vital Signs/I&O: Vital Signs Date Time Temp Pulse Resp B/P (MAP) Pulse Ox O2 Delivery O2 Flow Rate FiO2 01/07/21 06:20 76 130/71 01/07/21 06:04 97.8 18 98 01/06/21 16:05 Room Air I & O 01/06/21 01/06/21 01/07/21 14:59 22:59 06:59 Intake Total 480 ml 1560 ml Balance 480 ml 1560 ml Labs: Laboratory Tests Test 01/07/21 07:03 Glucose (Fingerstick) 257 mg/dL (70-99) H Current Medications: Meds: Laboratory Tests Test 01/07/21 07:03 Glucose (Fingerstick) 257 mg/dL Current Medications Medications (Trade) Dose Ordered Sig/Leonides Route PRN Reason Start Time Stop Time Status Last Admin Dose Admin Multi-Ingredient Ointment (Analgesic [place]) 1 swathi PRN QID PRN TP MUSCLE PAIN 11/21/20 21:00 01/07/21 10:29 DC Al Hydroxide/Mg Hydroxide (Mylanta Plus Xs) 15 ml PRN AFTMEALHC PRN PO DYSPEPSIA 11/21/20 21:00 01/07/21 10:29 DC 01/04/21 01:37 Magnesium Hydroxide (Milk Of Magnesia) 2,400 mg PRN QHS PRN PO 1ST CHOICE CONSTIPATION 11/21/20 21:00 01/07/21 10:29 DC Acetaminophen (Tylenol) 650 mg PRN Q4HRS PRN PO MILD PAIN / TEMP > 100.3'F 11/21/20 21:45 01/07/21 10:29 DC 12/06/20 22:17 Amoxicillin/ Clavulanate Potassium (Augmentin 875/ 125mg) 1 tab BID PO 11/22/20 09:00 11/24/20 21:01 DC 11/24/20 20:55 Aspirin (Aspirin Enteric Coated) 81 mg DAILY PO 11/22/20 09:00 01/07/21 10:29 DC 01/07/21 06:16 Bisacodyl (Dulcolax Tab) 5 mg PRN DAILY PRN PO 2ND CHOICE CONSTIPATION 11/21/20 21:45 01/07/21 10:29 DC Furosemide (Lasix) 40 mg DAILY PO 11/22/20 09:00 01/07/21 10:29 DC 01/07/21 06:17 Acetaminophen/ Hydrocodone Bitart (Lortab 5/325) 1 tab PRN BID PRN PO mod-sev PAIN 11/21/20 21:45 12/08/20 17:03 DC 12/08/20 09:20 Ibuprofen (Motrin) 200 mg PRN Q6HRS PRN PO MILD PAIN / TEMP > 100.3'F 11/21/20 21:45 Cancel Albuterol/ Ipratropium (Duoneb) 3 ml PRN BID PRN NEB SHORTNESS OF BREATH 11/21/20 21:45 01/07/21 10:29 DC Levothyroxine Sodium (Synthroid) 112 mcg DAILY06 PO 11/22/20 06:00 01/07/21 10:29 DC 01/07/21 06:16 Lorazepam (Ativan) 0.5 mg TID PO 11/21/20 22:00 12/03/20 18:47 DC 12/03/20 13:59 Zolpidem Tartrate (Ambien) 5 mg HS PO 11/21/20 22:00 11/27/20 18:02 DC 11/26/20 20:44 Betamethasone Dipropion Augmented (Betamethasone Dp Aug 0.05% Cream) 1 swathi PRN BID PRN TP RASH 11/21/20 22:15 01/07/21 10:29 DC Multi-Ingred Cream/Lotion/Oil/ Oint (Hydrocerin) 1 swathi PRN BID PRN TP Dry Hands 11/21/20 22:00 01/07/21 10:29 DC Guaifenesin (Robitussin Dm) 10 ml PRN Q8HRS PRN PO COUGH 11/21/20 22:00 01/07/21 10:29 DC 12/23/20 08:40 Insulin Human Lispro (HumaLOG) 20 units TIDWMEALS SQ 11/22/20 08:00 01/06/21 12:24 DC 01/06/21 09:20 Insulin Glargine (Lantus Syringe) 30 unit BID SQ 11/21/20 22:00 01/06/21 12:24 DC 01/06/21 09:20 Magnesium Chloride (Mag Delay) 64 mg DAILY PO 11/22/20 09:00 01/07/21 10:29 DC 01/07/21 06:16 Non-Formulary Medication (Menthol (Biofreeze)) 1 swathi QID PRN TP MUSCLE PAIN 11/21/20 21:45 UNV Pantoprazole Sodium (Protonix) 40 mg DAILY PO 11/22/20 09:00 01/07/21 10:29 DC 01/07/21 06:16 Oxybutynin Chloride (Ditropan) 5 mg DAILY PO 11/22/20 09:00 01/07/21 10:29 DC 01/07/21 06:17 Polyethylene Glycol (miraLAX) 17 gm DAILY PO 11/22/20 09:00 01/07/21 10:29 DC 01/07/21 06:18 Potassium Chloride (Klor-Con) 10 meq DAILY PO 11/22/20 09:00 01/07/21 10:29 DC 01/07/21 06:16 Propranolol HCl (Inderal) 40 mg DAILY PO 11/22/20 09:00 01/07/21 10:29 DC 01/07/21 06:20 Quetiapine Fumarate (SEROquel) 600 mg HS PO 11/21/20 22:15 12/03/20 18:47 DC 12/02/20 20:08 Saliva Substitute (Biotene Moisturizing Mouth) 2 spray PRN TID PRN PO DRY MOUTH 11/21/20 22:15 3/1/21 10:29 DC Non-Formulary Medication (Semaglutide (Ozempic)) 1 mg QFR SQ 11/23/20 16:00 12/09/20 10:20 DC Pentoxifylline (TRENtal) 400 mg TIDWMEALS PO 11/22/20 08:00 01/02/21 18:02 DC 01/02/21 12:47 Vitamin D (Vitamin D3) 2,000 unit DAILY PO 11/22/20 09:00 01/07/21 10:29 DC 01/07/21 06:17 Lactobacillus Rhamnosus (Culturelle) 1 cap BID PO 11/22/20 09:00 01/07/21 10:29 DC 01/07/21 06:16 Mirtazapine (Remeron) 7.5 mg QHS PO 11/27/20 21:00 12/11/20 17:03 DC 12/10/20 20:08 Divalproex Sodium (Depakote Er) 500 mg QHS PO 11/28/20 21:00 12/01/20 17:12 DC 11/30/20 20:45 Divalproex Sodium (Depakote Er) 1,000 mg QHS PO 12/01/20 21:00 12/21/20 19:55 DC 12/20/20 20:28 Bupropion HCl (Wellbutrin Xl) 150 mg DAILY PO 12/03/20 09:00 12/09/20 16:24 DC 12/09/20 08:14 Quetiapine Fumarate (SEROquel) 200 mg TID PO 12/03/20 21:00 12/06/20 11:47 DC 12/06/20 07:48 Clonazepam (KlonoPIN) 0.5 mg TID PO 12/03/20 21:00 01/07/21 10:29 DC 01/07/21 06:19 Trazodone HCl (Desyrel) 100 mg PRN QHS PRN PO INSOMNIA, MRX1 12/04/20 19:15 01/07/21 10:29 DC 01/06/21 20:21 Risperidone (RisperDAL) 0.5 mg 0900,1300,1700 PO 12/06/20 13:00 12/07/20 17:12 DC 12/07/20 09:00 Risperidone (RisperDAL) 1.5 mg DAILY PO 12/08/20 09:00 12/07/20 19:50 DC Risperidone (RisperDAL) 1.5 mg DAILY PO 12/07/20 20:00 12/09/20 16:24 DC 12/09/20 08:16 Acetaminophen/ Hydrocodone Bitart (Lortab 5/325) 1 tab PRN TID PRN PO mod-sev PAIN 12/08/20 17:00 01/07/21 10:29 DC 01/02/21 20:35 Risperidone (RisperDAL) 2 mg DAILY PO 12/10/20 09:00 12/13/20 12:47 DC 12/13/20 09:29 Mirtazapine (Remeron) 15 mg QHS PO 12/11/20 21:00 01/07/21 10:29 DC 01/06/21 20:21 Risperidone (RisperDAL) 3 mg DAILY PO 12/14/20 09:00 12/23/20 07:12 DC 12/22/20 08:31 Risperidone (RisperDAL CONSTA) 25 mg Q2WKS IM 12/14/20 09:00 01/07/21 10:29 DC 12/28/20 09:01 Quetiapine Fumarate (SEROquel) 50 mg PRN Q2HR PRN PO ANXIETY/AGITATION, 2ND CHOICE 12/16/20 04:15 01/07/21 10:29 DC 12/16/20 04:41 Lorazepam (Ativan) 0.5 mg PRN Q2HR PRN PO ANXIETY/AGITATION, 1ST CHOICE 12/16/20 04:15 01/07/21 10:29 DC 12/23/20 17:16 Trazodone HCl (Desyrel) 25 mg 0900,1300,1700 PO 12/18/20 09:00 12/23/20 16:59 DC 12/23/20 12:29 Temazepam (Restoril) 15 mg PRN QHS PRN PO INSOMNIA, MRX1, 1ST CHOICE 12/19/20 18:15 12/22/20 09:00 DC 12/21/20 19:59 Divalproex Sodium (Depakote Sprinkles) 500 mg BID PO 12/21/20 21:00 01/07/21 10:29 DC 01/07/21 06:18 Risperidone (RisperDAL) 3 mg DAILY PO 12/23/20 09:00 01/07/21 10:29 DC 01/07/21 06:18 Trazodone HCl (Desyrel) 25 mg DAILY PO 12/24/20 09:00 01/07/21 10:29 DC 01/07/21 06:17 Trazodone HCl (Desyrel) 50 mg 1300,1700 PO 12/23/20 17:00 01/07/21 10:29 DC 01/06/21 17:34 Insulin Glargine (Lantus Syringe) 40 unit BID SQ 01/06/21 21:00 01/07/21 10:29 DC 01/07/21 08:52 Insulin Human Lispro (HumaLOG) 25 units TIDWMEALS SQ 01/06/21 12:30 01/07/21 10:29 DC 01/07/21 08:51 I have reviewed the current psychotropics carefully including drug interactions. Risk benefit ratio favors no change other than as noted in my dictated progress note. Diagnosis: Problems: (1) Mild cognitive impairment (2) Schizoaffective disorder, bipolar type (3) Anxiety disorder, unspecified (4) Impulse disorder, unspecified (5) Bipolar disorder, curr episode mixed, severe, with psychotic features RAJIV VELAZQUEZ MD Jan 07, 2021 21:12
--- NOTE | 2021-01-07 21:36 | PDOC ---
Exam Note: Donte Note: This note is a late entry for 01/06/2021 covers elements not covered in my initial note. Subjective: The patient was seen face to face in the evening of 01/06/2021 with Deisy COPELAND. She slept 6-1/2 hours previous night. She has been compliant with treatment, not staring down staff. Plan is for discharge to halfway on 01/07/21. She was unsure what nursing facility she was going to and I discussed this with her, showed her the synopsis of her history, medications and that was all type written in my hand and she was very happy once she understood that I had a detailed history and the discussion about her medications and the reason for them the side effects. At the end of the visit she was smiling and thankful for her stay here. Review of Systems: No CV, , pulmonary, eye system symptoms on review. Mental Status Exam: The patient is reasonably oriented. Speech is coherent. Abstraction is fair. Computation is impaired. Language function is intact. Mood and affect is improved. Laboratory Data: Reviewed. Impression: Schizoaffective disorder, bipolar type, mixed with psychotic features. Anxiety disorder unspecified. Impulse control disorder unspecified. Plan: No change from initial note. Discharge to halfway tomorrow. Assessment: Vital Signs/I&O: Vital Signs Date Time Temp Pulse Resp B/P (MAP) Pulse Ox O2 Delivery O2 Flow Rate FiO2 01/07/21 06:20 76 130/71 01/07/21 06:04 97.8 18 98 01/06/21 16:05 Room Air I & O 01/06/21 01/06/21 01/07/21 15:00 23:00 07:00 Intake Total 480 ml 1560 ml Balance 480 ml 1560 ml Labs: Laboratory Tests Test 01/07/21 07:03 Glucose (Fingerstick) 257 mg/dL (70-99) H Current Medications: Meds: Laboratory Tests Test 01/07/21 07:03 Glucose (Fingerstick) 257 mg/dL Current Medications Medications (Trade) Dose Ordered Sig/Leonides Route PRN Reason Start Time Stop Time Status Last Admin Dose Admin Multi-Ingredient Ointment (Analgesic [place]) 1 swathi PRN QID PRN TP MUSCLE PAIN 11/21/20 21:00 01/07/21 10:29 DC Al Hydroxide/Mg Hydroxide (Mylanta Plus Xs) 15 ml PRN AFTMEALHC PRN PO DYSPEPSIA 11/21/20 21:00 01/07/21 10:29 DC 01/04/21 01:37 Magnesium Hydroxide (Milk Of Magnesia) 2,400 mg PRN QHS PRN PO 1ST CHOICE CONSTIPATION 11/21/20 21:00 01/07/21 10:29 DC Acetaminophen (Tylenol) 650 mg PRN Q4HRS PRN PO MILD PAIN / TEMP > 100.3'F 11/21/20 21:45 01/07/21 10:29 DC 12/06/20 22:17 Amoxicillin/ Clavulanate Potassium (Augmentin 875/ 125mg) 1 tab BID PO 11/22/20 09:00 11/24/20 21:01 DC 11/24/20 20:55 Aspirin (Aspirin Enteric Coated) 81 mg DAILY PO 11/22/20 09:00 01/07/21 10:29 DC 01/07/21 06:16 Bisacodyl (Dulcolax Tab) 5 mg PRN DAILY PRN PO 2ND CHOICE CONSTIPATION 11/21/20 21:45 01/07/21 10:29 DC Furosemide (Lasix) 40 mg DAILY PO 11/22/20 09:00 01/07/21 10:29 DC 01/07/21 06:17 Acetaminophen/ Hydrocodone Bitart (Lortab 5/325) 1 tab PRN BID PRN PO mod-sev PAIN 11/21/20 21:45 12/08/20 17:03 DC 12/08/20 09:20 Ibuprofen (Motrin) 200 mg PRN Q6HRS PRN PO MILD PAIN / TEMP > 100.3'F 11/21/20 21:45 Cancel Albuterol/ Ipratropium (Duoneb) 3 ml PRN BID PRN NEB SHORTNESS OF BREATH 11/21/20 21:45 01/07/21 10:29 DC Levothyroxine Sodium (Synthroid) 112 mcg DAILY06 PO 11/22/20 06:00 01/07/21 10:29 DC 01/07/21 06:16 Lorazepam (Ativan) 0.5 mg TID PO 11/21/20 22:00 12/03/20 18:47 DC 12/03/20 13:59 Zolpidem Tartrate (Ambien) 5 mg HS PO 11/21/20 22:00 11/27/20 18:02 DC 11/26/20 20:44 Betamethasone Dipropion Augmented (Betamethasone Dp Aug 0.05% Cream) 1 swathi PRN BID PRN TP RASH 11/21/20 22:15 01/07/21 10:29 DC Multi-Ingred Cream/Lotion/Oil/ Oint (Hydrocerin) 1 swathi PRN BID PRN TP Dry Hands 11/21/20 22:00 01/07/21 10:29 DC Guaifenesin (Robitussin Dm) 10 ml PRN Q8HRS PRN PO COUGH 11/21/20 22:00 01/07/21 10:29 DC 12/23/20 08:40 Insulin Human Lispro (HumaLOG) 20 units TIDWMEALS SQ 11/22/20 08:00 01/06/21 12:24 DC 01/06/21 09:20 Insulin Glargine (Lantus Syringe) 30 unit BID SQ 11/21/20 22:00 01/06/21 12:24 DC 01/06/21 09:20 Magnesium Chloride (Mag Delay) 64 mg DAILY PO 11/22/20 09:00 01/07/21 10:29 DC 01/07/21 06:16 Non-Formulary Medication (Menthol (Biofreeze)) 1 swathi QID PRN TP MUSCLE PAIN 11/21/20 21:45 UNV Pantoprazole Sodium (Protonix) 40 mg DAILY PO 11/22/20 09:00 01/07/21 10:29 DC 01/07/21 06:16 Oxybutynin Chloride (Ditropan) 5 mg DAILY PO 11/22/20 09:00 01/07/21 10:29 DC 01/07/21 06:17 Polyethylene Glycol (miraLAX) 17 gm DAILY PO 11/22/20 09:00 01/07/21 10:29 DC 01/07/21 06:18 Potassium Chloride (Klor-Con) 10 meq DAILY PO 11/22/20 09:00 01/07/21 10:29 DC 01/07/21 06:16 Propranolol HCl (Inderal) 40 mg DAILY PO 11/22/20 09:00 01/07/21 10:29 DC 01/07/21 06:20 Quetiapine Fumarate (SEROquel) 600 mg HS PO 11/21/20 22:15 12/03/20 18:47 DC 12/02/20 20:08 Saliva Substitute (Biotene Moisturizing Mouth) 2 spray PRN TID PRN PO DRY MOUTH 11/21/20 22:15 01/07/21 10:29 DC Non-Formulary Medication (Semaglutide (Ozempic)) 1 mg QFR SQ 11/23/20 16:00 12/09/20 10:20 DC Pentoxifylline (TRENtal) 400 mg TIDWMEALS PO 11/22/20 08:00 01/02/21 18:02 DC 01/02/21 12:47 Vitamin D (Vitamin D3) 2,000 unit DAILY PO 11/22/20 09:00 01/07/21 10:29 DC 01/07/21 06:17 Lactobacillus Rhamnosus (Culturelle) 1 cap BID PO 11/22/20 09:00 01/07/21 10:29 DC 01/07/21 06:16 Mirtazapine (Remeron) 7.5 mg QHS PO 11/27/20 21:00 12/11/20 17:03 DC 12/10/20 20:08 Divalproex Sodium (Depakote Er) 500 mg QHS PO 11/28/20 21:00 12/01/20 17:12 DC 11/30/20 20:45 Divalproex Sodium (Depakote Er) 1,000 mg QHS PO 12/01/20 21:00 12/21/20 19:55 DC 12/20/20 20:28 Bupropion HCl (Wellbutrin Xl) 150 mg DAILY PO 12/03/20 09:00 12/09/20 16:24 DC 12/09/20 08:14 Quetiapine Fumarate (SEROquel) 200 mg TID PO 12/03/20 21:00 12/06/20 11:47 DC 12/06/20 07:48 Clonazepam (KlonoPIN) 0.5 mg TID PO 12/03/20 21:00 01/07/21 10:29 DC 01/07/21 06:19 Trazodone HCl (Desyrel) 100 mg PRN QHS PRN PO INSOMNIA, MRX1 12/04/20 19:15 01/07/21 10:29 DC 01/06/21 20:21 Risperidone (RisperDAL) 0.5 mg 0900,1300,1700 PO 12/06/20 13:00 12/07/20 17:12 DC 12/07/20 09:00 Risperidone (RisperDAL) 1.5 mg DAILY PO 12/08/20 09:00 12/07/20 19:50 DC Risperidone (RisperDAL) 1.5 mg DAILY PO 12/07/20 20:00 12/09/20 16:24 DC 12/09/20 08:16 Acetaminophen/ Hydrocodone Bitart (Lortab 5/325) 1 tab PRN TID PRN PO mod-sev PAIN 12/08/20 17:00 01/07/21 10:29 DC 01/02/21 20:35 Risperidone (RisperDAL) 2 mg DAILY PO 12/10/20 09:00 12/13/20 12:47 DC 12/13/20 09:29 Mirtazapine (Remeron) 15 mg QHS PO 12/11/20 21:00 01/07/21 10:29 DC 01/06/21 20:21 Risperidone (RisperDAL) 3 mg DAILY PO 12/14/20 09:00 12/23/20 07:12 DC 12/22/20 08:31 Risperidone (RisperDAL CONSTA) 25 mg Q2WKS IM 12/14/20 09:00 01/07/21 10:29 DC 12/28/20 09:01 Quetiapine Fumarate (SEROquel) 50 mg PRN Q2HR PRN PO ANXIETY/AGITATION, 2ND CHOICE 12/16/20 04:15 01/07/21 10:29 DC 12/16/20 04:41 Lorazepam (Ativan) 0.5 mg PRN Q2HR PRN PO ANXIETY/AGITATION, 1ST CHOICE 12/16/20 04:15 01/07/21 10:29 DC 12/23/20 17:16 Trazodone HCl (Desyrel) 25 mg 0900,1300,1700 PO 12/18/20 09:00 12/23/20 16:59 DC 12/23/20 12:29 Temazepam (Restoril) 15 mg PRN QHS PRN PO INSOMNIA, MRX1, 1ST CHOICE 12/19/20 18:15 12/22/20 09:00 DC 12/21/20 19:59 Divalproex Sodium (Depakote Sprinkles) 500 mg BID PO 12/21/20 21:00 01/07/21 10:29 DC 01/07/21 06:18 Risperidone (RisperDAL) 3 mg DAILY PO 12/23/20 09:00 01/07/21 10:29 DC 01/07/21 06:18 Trazodone HCl (Desyrel) 25 mg DAILY PO 12/24/20 09:00 01/07/21 10:29 DC 01/07/21 06:17 Trazodone HCl (Desyrel) 50 mg 1300,1700 PO 12/23/20 17:00 01/07/21 10:29 DC 01/06/21 17:34 Insulin Glargine (Lantus Syringe) 40 unit BID SQ 01/06/21 21:00 01/07/21 10:29 DC 01/07/21 08:52 Insulin Human Lispro (HumaLOG) 25 units TIDWMEALS SQ 01/06/21 12:30 01/07/21 10:29 DC 01/07/21 08:51 I have reviewed the current psychotropics carefully including drug interactions. Risk benefit ratio favors no change other than as noted in my dictated progress note. Diagnosis: Problems: (1) Schizoaffective disorder, bipolar type (2) Anxiety disorder, unspecified (3) Impulse disorder, unspecified (4) Bipolar disorder, curr episode mixed, severe, with psychotic features RAJIV VELAZQUEZ MD Jan 07, 2021 21:36
--- NOTE | 2021-01-07 21:37 | PDOC ---
Exam Note: Donte Note: Please also refer to the separate dictated note~for this date of service dictated separately.~Patient seen individually. Discussed the patient with Nursing staff reviewed the chart.~Reviewed interim history and current functioning. Reviewed vital signs,~Labs/ Radiology~and current medications noted below. Continue current treatment with the changes noted in the dictated addendum note Assessment: Vital Signs/I&O: Vital Signs Date Time Temp Pulse Resp B/P (MAP) Pulse Ox O2 Delivery O2 Flow Rate FiO2 01/07/21 06:20 76 130/71 01/07/21 06:04 97.8 18 98 01/06/21 16:05 Room Air I & O 01/06/21 01/06/21 01/07/21 15:00 23:00 07:00 Intake Total 480 ml 1560 ml Balance 480 ml 1560 ml Labs: Laboratory Tests Test 01/07/21 07:03 Glucose (Fingerstick) 257 mg/dL (70-99) H Current Medications: Meds: Laboratory Tests Test 01/07/21 07:03 Glucose (Fingerstick) 257 mg/dL Current Medications Medications (Trade) Dose Ordered Sig/Leonides Route PRN Reason Start Time Stop Time Status Last Admin Dose Admin Multi-Ingredient Ointment (Analgesic [place]) 1 swathi PRN QID PRN TP MUSCLE PAIN 11/21/20 21:00 01/07/21 10:29 DC Al Hydroxide/Mg Hydroxide (Mylanta Plus Xs) 15 ml PRN AFTMEALHC PRN PO DYSPEPSIA 11/21/20 21:00 01/07/21 10:29 DC 01/04/21 01:37 Magnesium Hydroxide (Milk Of Magnesia) 2,400 mg PRN QHS PRN PO 1ST CHOICE CONSTIPATION 11/21/20 21:00 01/07/21 10:29 DC Acetaminophen (Tylenol) 650 mg PRN Q4HRS PRN PO MILD PAIN / TEMP > 100.3'F 11/21/20 21:45 01/07/21 10:29 DC 12/06/20 22:17 Amoxicillin/ Clavulanate Potassium (Augmentin 875/ 125mg) 1 tab BID PO 11/22/20 09:00 11/24/20 21:01 DC 11/24/20 20:55 Aspirin (Aspirin Enteric Coated) 81 mg DAILY PO 11/22/20 09:00 01/07/21 10:29 DC 01/07/21 06:16 Bisacodyl (Dulcolax Tab) 5 mg PRN DAILY PRN PO 2ND CHOICE CONSTIPATION 11/21/20 21:45 01/07/21 10:29 DC Furosemide (Lasix) 40 mg DAILY PO 11/22/20 09:00 01/07/21 10:29 DC 01/07/21 06:17 Acetaminophen/ Hydrocodone Bitart (Lortab 5/325) 1 tab PRN BID PRN PO mod-sev PAIN 11/21/20 21:45 12/08/20 17:03 DC 12/08/20 09:20 Ibuprofen (Motrin) 200 mg PRN Q6HRS PRN PO MILD PAIN / TEMP > 100.3'F 11/21/20 21:45 Cancel Albuterol/ Ipratropium (Duoneb) 3 ml PRN BID PRN NEB SHORTNESS OF BREATH 11/21/20 21:45 01/07/21 10:29 DC Levothyroxine Sodium (Synthroid) 112 mcg DAILY06 PO 11/22/20 06:00 01/07/21 10:29 DC 01/07/21 06:16 Lorazepam (Ativan) 0.5 mg TID PO 11/21/20 22:00 12/03/20 18:47 DC 12/03/20 13:59 Zolpidem Tartrate (Ambien) 5 mg HS PO 11/21/20 22:00 11/27/20 18:02 DC 11/26/20 20:44 Betamethasone Dipropion Augmented (Betamethasone Dp Aug 0.05% Cream) 1 swathi PRN BID PRN TP RASH 11/21/20 22:15 01/07/21 10:29 DC Multi-Ingred Cream/Lotion/Oil/ Oint (Hydrocerin) 1 swathi PRN BID PRN TP Dry Hands 11/21/20 22:00 01/07/21 10:29 DC Guaifenesin (Robitussin Dm) 10 ml PRN Q8HRS PRN PO COUGH 11/21/20 22:00 01/07/21 10:29 DC 12/23/20 08:40 Insulin Human Lispro (HumaLOG) 20 units TIDWMEALS SQ 11/22/20 08:00 01/06/21 12:24 DC 01/06/21 09:20 Insulin Glargine (Lantus Syringe) 30 unit BID SQ 11/21/20 22:00 01/06/21 12:24 DC 01/06/21 09:20 Magnesium Chloride (Mag Delay) 64 mg DAILY PO 11/22/20 09:00 01/07/21 10:29 DC 01/07/21 06:16 Non-Formulary Medication (Menthol (Biofreeze)) 1 swathi QID PRN TP MUSCLE PAIN 11/21/20 21:45 UNV Pantoprazole Sodium (Protonix) 40 mg DAILY PO 11/22/20 09:00 01/07/21 10:29 DC 01/07/21 06:16 Oxybutynin Chloride (Ditropan) 5 mg DAILY PO 11/22/20 09:00 01/07/21 10:29 DC 01/07/21 06:17 Polyethylene Glycol (miraLAX) 17 gm DAILY PO 11/22/20 09:00 01/07/21 10:29 DC 01/07/21 06:18 Potassium Chloride (Klor-Con) 10 meq DAILY PO 11/22/20 09:00 01/07/21 10:29 DC 01/07/21 06:16 Propranolol HCl (Inderal) 40 mg DAILY PO 11/22/20 09:00 01/07/21 10:29 DC 01/07/21 06:20 Quetiapine Fumarate (SEROquel) 600 mg HS PO 11/21/20 22:15 12/03/20 18:47 DC 12/02/20 20:08 Saliva Substitute (Biotene Moisturizing Mouth) 2 spray PRN TID PRN PO DRY MOUTH 11/21/20 22:15 01/07/21 10:29 DC Non-Formulary Medication (Semaglutide (Ozempic)) 1 mg QFR SQ 11/23/20 16:00 12/09/20 10:20 DC Pentoxifylline (TRENtal) 400 mg TIDWMEALS PO 11/22/20 08:00 01/02/21 18:02 DC 01/02/21 12:47 Vitamin D (Vitamin D3) 2,000 unit DAILY PO 11/22/20 09:00 01/07/21 10:29 DC 01/07/21 06:17 Lactobacillus Rhamnosus (Culturelle) 1 cap BID PO 11/22/20 09:00 01/07/21 10:29 DC 01/07/21 06:16 Mirtazapine (Remeron) 7.5 mg QHS PO 11/27/20 21:00 12/11/20 17:03 DC 12/10/20 20:08 Divalproex Sodium (Depakote Er) 500 mg QHS PO 11/28/20 21:00 12/01/20 17:12 DC 11/30/20 20:45 Divalproex Sodium (Depakote Er) 1,000 mg QHS PO 12/01/20 21:00 12/21/20 19:55 DC 12/20/20 20:28 Bupropion HCl (Wellbutrin Xl) 150 mg DAILY PO 12/03/20 09:00 12/09/20 16:24 DC 12/09/20 08:14 Quetiapine Fumarate (SEROquel) 200 mg TID PO 12/03/20 21:00 12/06/20 11:47 DC 12/06/20 07:48 Clonazepam (KlonoPIN) 0.5 mg TID PO 12/03/20 21:00 01/07/21 10:29 DC 01/07/21 06:19 Trazodone HCl (Desyrel) 100 mg PRN QHS PRN PO INSOMNIA, MRX1 12/04/20 19:15 01/07/21 10:29 DC 01/06/21 20:21 Risperidone (RisperDAL) 0.5 mg 0900,1300,1700 PO 12/06/20 13:00 12/07/20 17:12 DC 12/07/20 09:00 Risperidone (RisperDAL) 1.5 mg DAILY PO 12/08/20 09:00 12/07/20 19:50 DC Risperidone (RisperDAL) 1.5 mg DAILY PO 12/07/20 20:00 12/09/20 16:24 DC 12/09/20 08:16 Acetaminophen/ Hydrocodone Bitart (Lortab 5/325) 1 tab PRN TID PRN PO mod-sev PAIN 12/08/20 17:00 01/07/21 10:29 DC 01/02/21 20:35 Risperidone (RisperDAL) 2 mg DAILY PO 12/10/20 09:00 12/13/20 12:47 DC 12/13/20 09:29 Mirtazapine (Remeron) 15 mg QHS PO 12/11/20 21:00 01/07/21 10:29 DC 01/06/21 20:21 Risperidone (RisperDAL) 3 mg DAILY PO 12/14/20 09:00 12/23/20 07:12 DC 12/22/20 08:31 Risperidone (RisperDAL CONSTA) 25 mg Q2WKS IM 12/14/20 09:00 01/07/21 10:29 DC 12/28/20 09:01 Quetiapine Fumarate (SEROquel) 50 mg PRN Q2HR PRN PO ANXIETY/AGITATION, 2ND CHOICE 12/16/20 04:15 01/07/21 10:29 DC 12/16/20 04:41 Lorazepam (Ativan) 0.5 mg PRN Q2HR PRN PO ANXIETY/AGITATION, 1ST CHOICE 12/16/20 04:15 01/07/21 10:29 DC 12/23/20 17:16 Trazodone HCl (Desyrel) 25 mg 0900,1300,1700 PO 12/18/20 09:00 12/23/20 16:59 DC 12/23/20 12:29 Temazepam (Restoril) 15 mg PRN QHS PRN PO INSOMNIA, MRX1, 1ST CHOICE 12/19/20 18:15 12/22/20 09:00 DC 12/21/20 19:59 Divalproex Sodium (Depakote Sprinkles) 500 mg BID PO 12/21/20 21:00 01/07/21 10:29 DC 01/07/21 06:18 Risperidone (RisperDAL) 3 mg DAILY PO 12/23/20 09:00 01/07/21 10:29 DC 01/07/21 06:18 Trazodone HCl (Desyrel) 25 mg DAILY PO 12/24/20 09:00 01/07/21 10:29 DC 01/07/21 06:17 Trazodone HCl (Desyrel) 50 mg 1300,1700 PO 12/23/20 17:00 01/07/21 10:29 DC 01/06/21 17:34 Insulin Glargine (Lantus Syringe) 40 unit BID SQ 01/06/21 21:00 01/07/21 10:29 DC 01/07/21 08:52 Insulin Human Lispro (HumaLOG) 25 units TIDWMEALS SQ 01/06/21 12:30 01/07/21 10:29 DC 01/07/21 08:51 I have reviewed the current psychotropics carefully including drug interactions. Risk benefit ratio favors no change other than as noted in my dictated progress note. Diagnosis: Problems: (1) Schizoaffective disorder, bipolar type (2) Anxiety disorder, unspecified (3) Impulse disorder, unspecified (4) Bipolar disorder, curr episode mixed, severe, with psychotic features RAJIV VELAZQUEZ MD Jan 07, 2021 21:37
--- NOTE | 2021-01-08 09:33 | DS ---
DATE OF DISCHARGE: 01/07/2021 DISCHARGE SUMMARY/PSYCHIATRIC PROGRESS NOTE This is a late entry, date of service 01/07/2021, covers elements not covered in my initial note. IDENTIFYING DATA: The patient is a 65-year-old female referred to us from [facility] on account of reportedly invading personal space of others. She was refusing medications, refusing showers, making sexual comments to staff. She was defecating on the shower floor, clogging the toilet with silverware cups. She was spitting on peers. The patient has a history of bipolar disorder versus schizoaffective disorder, bipolar type. She had an acute exacerbation of her illness. Behaviors were unmanageable at the facility, had failed outpatient psychiatric interventions. The patient was psychotic, agitated, disruptive and referred for inpatient psychiatric stabilization. SIGNIFICANT FINDINGS AND CLINICAL COURSE: Following admission, the patient was seen daily individually by myself from a psychiatric standpoint, medical followup per Dr. Daniels/Dr. Delatorre. The patient was continued on her psychotropics and these were quite challenging because she was refusing all psychotropics. She was started on Risperdal Consta 25 mg IM every 2 weeks and finally appeared to be stabilized on a combination of additional Risperdal tablet 3 mg daily, Remeron 15 mg at bedtime, Klonopin 0.5 mg t.i.d., Depakote Sprinkles 500 mg b.i.d., trazodone 100 mg at bedtime p.r.n., march repeat x 1. The next dosage of Risperdal Consta was due on 01/11/2021. She is also on trazodone 25 mg 0900, 50 mg 1300 and 1700; Seroquel 50 mg q.2 hours p.r.n. psychosis, agitation; Ativan 0.5 mg q.2 hours p.r.n. anxiety. She appeared much more stable, appropriate on this dosage. Valproic acid level was therapeutic at 57. REVIEW OF SYSTEMS: Prior to discharge, 01/07/2021, no CV, , pulmonary, eye, ENT system symptoms on review. MENTAL STATUS EXAM: The patient is reasonably oriented. Speech coherent, has some latency. Abstraction fair, computation impaired, language function intact, attention span short. Mood and affect somewhat withdrawn, but much more appropriate and the staring down intense gaze she was utilizing to threaten others at admission all seemed to have subsided. CONDITION AT DISCHARGE: Improved. FINAL DIAGNOSES: Schizoaffective disorder, bipolar type, mixed with psychotic features, in partial remission; anxiety disorder, unspecified; impulse control disorder, unspecified. Rest unchanged from admission. DISCHARGE MEDICATIONS: Please refer to the MRAD. The patient was both on Risperdal Consta and oral Risperdal at discharge. I would recommend that the oral Risperdal be gradually reduced as noted in the discharge instructions until it drop down to approximately 1-2 mg daily while continuing the Risperdal Consta and then further decisions can be made about the taper at that stage by her treating psychiatrist/primary care physician. Time for discharge day management greater than 30 minutes. MAN Tika VELAZQUEZ MD DR: MEÑO/acndice JOB#: [id number] / [id number]
== END 2021-01-07 10:28 | DRG 885 ==
LOC: GEROPSY 20:10
PROVIDERS: ADMIT Psychiatry & Neurology Psychiatry; ATTEND Psychiatry & Neurology Psychiatry
DX: F25.0 Schizoaffective disorder, bipolar type (principal); F79 Unspecified intellectual disabilities; E03.9 Hypothyroidism, unspecified; E11.9 Type 2 diabetes mellitus without complications; E78.5 Hyperlipidemia, unspecified; F41.9 Anxiety disorder, unspecified; F63.9 Impulse disorder, unspecified; G31.84 Mild cognitive impairment of uncertain or unknown etiology; K59.09 Other constipation; M19.90 Unspecified osteoarthritis, unspecified site; N32.81 Overactive bladder; Z90.710 Acquired absence of both cervix and uterus; Z91.14 Patient's other noncompliance with medication regimen; Z91.19 Patient's noncompliance with other medical treatment and regimen; E66.9 Obesity, unspecified; Z88.8 Allergy status to other drugs, medicaments and biological substances; D50.9 Iron deficiency anemia, unspecified; Z20.822 Contact with and (suspected) exposure to COVID-19; Z91.83 Wandering in diseases classified elsewhere; J30.9 Allergic rhinitis, unspecified; F10.10 Alcohol abuse, uncomplicated
CPT/HCPCS: 36415; 80053; 80061; 80164; 81001; 82306; 82607; 82947; 83036; 83540; 83550; 83735; 84436; 84443; 84480; 85007; 85025; 85379; 86592; 93005; 93971; J1815; J2794; U0003

== ENCOUNTER 2021-07-01 11:38 | Inpatient (IN) | payer MEDICARE, OTHER ==
[~2021-07-01] VITALS: Ht 167.6 cm; Wt 100.6 kg
[~2021-07-01 11:38] MED LIST: ACET325T21 PO; AMOX1TAB61 PO; ASPI-889 PO; BETA15CR4 TP; BISA5TAB4 PO; CLON0.5T4 PO; DIVA125C2 PO; EMOL85CR TP; FURO40TA4 PO; GUAI237L83 PO; HYDR-2155 PO; IBUP-1673 PO; INSU100V13 SQ; INSU100V31 SQ; IPRA3AMP29 NEB; LACT1CAP21 PO; LEVO112T4 PO; LORA0.5T21 PO; MAG-124 PO; MAGN24003 PO; MAGN64TA7 PO; MAGN71.5 PO; MENT118G TP; METH57CR17 TP; MIRT-7 PO; OMEP20CA16 PO; OXYB-36 PO; PENTOXIFYLLINE PO; POLY2500 PO; POTA10TA5 PO; PROP40TA PO; QUET300T5 PO; QUET50TA5 PO; RISP25DI IM; RISP3TAB23 PO; SALI10002 MM; SEMA1PEN SQ; TRAZ-120 PO; TRAZ-125 PO; Vitamin D3 PO; ZOLP5TAB PO
--- NOTE | 2021-07-01 14:20 | NUR ---
ADMISSION- PT IS ADMITTED DIRECT FROM [facility] IN [place]. ADMITTED FOR CLEARANCE TO BE ADMITTED TO [facility]. ARRIVES IN W/C, VIA FACILITY VAN. COVID SWABS OBTAINED IMMEDIATELY ON ARRIVAL IN ROOM. PT REFUSED VS ET BLOOD LABS AT THAT TIME. DENIES ANY FAMILY HISTORY, TELLS THIS NURSE "STOP ASKING YOUR QUESTIONS." ONLY CURSORY, HANDS OFF ASSESSMENT COMPLETE, PT REFUSES ANY HANDS ON ASSESSMENT. CURRENTLY IN BED, IN HOSPITAL GOWN. REQUESTING DRINKS. HOME MEDICATIONS REVIEWED WITH DR JACKSON, APPROPRIATE ORDERS CONTINUED FOR THIS STAY.
[2021-07-01] MEDS ORDERED: MAGN400T5 PO (15:02)
[2021-07-01] MEDS ORDERED: INSU100C4 SQ (15:05)
[2021-07-01] MEDS ORDERED: SPIR25TA5 PO (15:06)
[2021-07-01] MEDS ORDERED: METHYL SALICYLATE/MENTHOL TOPICAL OINTMENT 57GM TUBE. TP PRN (16:00)
[2021-07-01] MEDS ORDERED: IPRATRPIUM/ALBUTEROL 0.5/2.5MG 3 ML NEBU. NEB PRN (16:00)
[2021-07-01] MEDS ORDERED: ACETAMINOPHEN 325 MG TABLET PO PRN (16:00)
[2021-07-01] MEDS ORDERED: MAG HYDROX/AL HYDROX/SIMETH 30 ML ORAL.SUSP PO PRN (16:00)
[2021-07-01] MEDS ORDERED: BISACODYL TAB 5 MG TABLET.DR. PO PRN (16:00)
[2021-07-01] MEDS ORDERED: clonazePAM 0.5 MG TABLET PO PRN (16:00)
[2021-07-01] MEDS ORDERED: MAGNESIUM HYDROXIDE 2,400 MG/30 ML ORAL.SUSP. PO PRN (16:15)
[2021-07-01] MEDS ORDERED: guaiFENesin DM 200MG/20MG 10 ML SYRUP PO PRN (16:15)
[2021-07-01 16:30] VITALS: BP 167/101
[2021-07-01] MEDS: traZODone 50 MG TABLET. PO SCH (17:00)
[2021-07-01] MEDS: INSULIN LISPRO 300 UNITS/3 ML VIAL. SQ SCH (17:00)
[2021-07-01 19:44] VITALS: BP 175/90
[2021-07-01 20:16] LABS: HEMATOCRIT 45.7 % (36.0-47.0); HEMOGLOBIN 14.7 g/dL (12.0-15.5); RED BLOOD COUNT 5.25 x10^6/uL (3.50-5.40); RED CELL DISTRIBUTION WIDTH 14.6 % (11.5-14.5); WHITE BLOOD COUNT 18.3 x10^3/uL (4.0-11.0)
[2021-07-01 20:44] LABS: ALBUMIN 3.2 g/dL (3.4-5.0); ALBUMIN/GLOBULIN RATIO 0.6 (1.0-1.7); ALK PHOS 199 U/L (46-116); ALT (SGPT) 54 U/L (14-59); AST (SGOT) 56 U/L (15-37); BLOOD UREA NITROGEN 26 mg/dL (7-20); BUN/CREATININE RATIO 24 (6-20); CALCIUM 8.8 mg/dL (8.5-10.1); CHLORIDE 92 mmol/L (98-107); CREATININE 1.1 mg/dL (0.6-1.0); GFR 49.8; MAGNESIUM 2.1 mg/dL (1.8-2.4); POTASSIUM 4.5 mmol/L (3.5-5.1); SODIUM 124 mmol/L (136-145); TOTAL BILIRUBIN 0.7 mg/dL (0.2-1.0); TOTAL PROTEIN 8.4 g/dL (6.4-8.2)
[2021-07-01 20:48] LABS: ANION GAP 27 (6-14)
--- NOTE | 2021-07-01 20:49 | EKG ---
[address] [address] Test Date: 2021-07-01 Test Time: 20:07:52 Pat Name: JILLIAN VU Department: Room: 124 A Gender: F Corporate Services Manager: : 1955 Requested By: ARTIE JACKSON Order Number: [id number] Reading MD: Measurements Intervals [place] Rate: 123 P: -121 MN: 132 QRS: 37 QRSD: 72 T: 62 QT: 336 QTc: 487 Interpretive Statements SUPRAVENTRICULAR RHYTHM QRS(T) CONTOUR ABNORMALITY CONSISTENT WITH ANTEROSEPTAL INFARCT PROBABLY OLD ABNORMAL ECG RI6.01 No previous ECG available for comparison
[2021-07-01 20:50] LABS: CARBON DIOXIDE < 5 mmol/L (21-32); GLUCOSE 536 mg/dL (70-99)
[2021-07-01] MEDS ORDERED: INSULIN GLARGINE SYRINGE. SQ SCH (21:00)
[2021-07-01 21:05] LABS: BACTERIA,URINE FEW /HPF (0-FEW); BILIRUBIN,URINE SMALL (NEG); COLOR,URINE YELLOW; GLUCOSE,URINE 500 mg/dL (NEG); NITRITE,URINE NEG (NEG); SQUAMOUS EPITHELIAL CELL,UR MANY /LPF; UROBILINOGEN,URINE 0.2 mg/dL (0.2 mg/dL); YEAST,URINE PRESENT /HPF
[2021-07-01 21:06] LABS: CLARITY,URINE CLEAR
[2021-07-01] MEDS: MIRTAZAPINE 15 MG TABLET PO SCH (21:14)
[2021-07-01] MEDS: DIVALPROEX 125 MG CAP.SPRINK PO SCH (21:14)
[2021-07-01] MEDS ORDERED: INSULIN LISPRO 300 UNITS/3 ML VIAL. SQ ONE (21:15)
[2021-07-01 23:33] VITALS: BP 168/86
[2021-07-02] VITALS (16 sets, daily range): BP systolic 122–187; BP diastolic 59–89
[2021-07-02] MEDS ORDERED: SODIUM BICARB ADULT 8.4% 50 MEQ/50 ML DISP.SYRIN. IV ONE ×3 (06:30→13:35)
--- NOTE | 2021-07-02 07:05 | NUR ---
Called dr to update on pts lab values. dr ordered for pt to be transferred to ICU, to be put on fluid, given sodium bicarb and DKA protocol. Pt being admitted to ICU due to being in DKA. Pt transferred to ICU with all belongings to 2. Will give report to on coming shift.
[2021-07-02 07:07] LABS: BLOOD UREA NITROGEN 34 mg/dL (7-20); CALCIUM 8.6 mg/dL (8.5-10.1); CHLORIDE 92 mmol/L (98-107); GFR 55.6; GLUCOSE 498 mg/dL (70-99); SODIUM 121 mmol/L (136-145)
[2021-07-02 07:19] LABS: ANION GAP 24 (6-14)
[2021-07-02 07:20] LABS: CARBON DIOXIDE < 5 mmol/L (21-32)
[2021-07-02] MEDS: IV NORMAL SALINE 1,000ML 1,000 ML IV SCH ×3 (07:44→20:36)
[2021-07-02] MEDS: INSULIN LISPRO 300 UNITS/3 ML VIAL. SQ SCH (08:00)
[2021-07-02] MEDS: INSULIN REGULAR VIAL 100 UNIT in IV NORMAL SALINE 100ML 100 ML IV PRN ×2 (08:37→16:42)
[2021-07-02] MEDS: DIVALPROEX 125 MG CAP.SPRINK PO SCH ×2 (09:00→20:35)
[2021-07-02] MEDS: ASPIRIN ENTERIC COATED 81 MG TABLET.DR. PO SCH (09:00)
[2021-07-02] MEDS: OXYBUTYNIN CHLORIDE 5 MG TABLET PO SCH (09:00)
[2021-07-02] MEDS: PANTOPRAZOLE 40 MG TABLET. PO SCH (09:00)
[2021-07-02] MEDS: POLYETHYLENE GLYCOL 3350 17 GM PACKET. PO SCH (09:00)
[2021-07-02] MEDS: SPIRONOLACTONE 25 MG TABLET PO SCH (09:00)
[2021-07-02] MEDS: FUROSEMIDE 40 MG TABLET PO SCH (09:00)
[2021-07-02] MEDS: MAGNESIUM OXIDE 400 MG TABLET PO SCH (09:00)
[2021-07-02] MEDS: CHOLECALCIFEROL (VITAMIN D3) 1,000 UNIT TABLET PO SCH (09:00)
[2021-07-02] MEDS: POTASSIUM CHLORIDE 10 MEQ TABLET.ER. PO SCH (09:00)
[2021-07-02] MEDS: PROPRANOLOL 20 MG TABLET. PO SCH (09:00)
[2021-07-02] MEDS: METOPROLOL TART IMMED RELEASE 50 MG TABLET PO SCH ×2 (09:41→20:35)
[2021-07-02] MEDS: LEVOTHYROXINE 112 MCG TABLET PO SCH (09:41)
--- NOTE | 2021-07-02 10:04 | HP ---
ATTENDING PHYSICIAN: Dr. Delatorre. CHIEF COMPLAINT: We are asked to admit this patient for medical clearance. [facility]. She has underlying dementia, schizoaffective disorder, behavioral issues. She is also diabetic. When we got labs back, her blood sugar was over 500. She had an increased anion gap at 24. Bicarbonate level was less than 5. She has evidence of diabetic ketoacidosis. She was admitted then to the floor and then transferred to the ICU for GlucoStabilizer protocol and insulin drip. She has no insight into her illness. Much of the information obtained from the penitentiary chart. PAST MEDICAL HISTORY: Significant for the diabetes. She also has a longstanding history of schizoaffective disorder, bipolar disorder, anxiety, intellectual disability, developmental delay, impulse control disorder, and cognitive impairment. CURRENT MEDICINES: Reviewed. ALLERGIES: SHE HAS MULTIPLE ALLERGIES INCLUDING ASCORBIC ACID, CLONIDINE, LITHIUM, MEPERIDINE, OLANZAPINE. FOOD ALLERGIES INCLUDE STRAWBERRIES AND AVOCADO. CURRENT MEDICATIONS: Include Tylenol, albuterol, aspirin, betamethasone, clonazepam, Depakote, Lasix, hydrocodone, insulin regular and Lantus, Synthroid, lorazepam, magnesium, Remeron, potassium, Aldactone, trazodone, and vitamin D3. SOCIAL HISTORY: She is a nonsmoker, nondrinker. FAMILY HISTORY: Unobtainable. REVIEW OF SYSTEMS: Unobtainable. PHYSICAL EXAMINATION: GENERAL: When I saw her, this is a pleasant female who was confused. INITIAL VITAL SIGNS: When I saw her, blood pressure is 158/89, pulse is 117 and regular. She was afebrile. Oxygen sat 100% on room air. HEENT: Pupils are reactive. Sclerae nonicteric. Oropharynx clear. NECK: Supple, no bruits. LUNGS: Shallow respirations. CARDIOVASCULAR: Showed tachycardia rhythm. Distant heart tones. No gallops. ABDOMEN: Obese, protuberant. No organomegaly. No guarding or rebound tenderness. Normoactive bowel sounds. EXTREMITIES: Show trace edema. NEUROLOGIC FUNCTION: Focally intact. Speech is fluent. She is pleasantly confused. SKIN: Warm and dry. LABORATORY STUDIES: As noted. Anion gap is increased. ASSESSMENT: 1. A 65-year-old female, penitentiary resident with poorly controlled diabetes. She has diabetic ketoacidosis. 2. Dehydration. 3. Labile hypertension with tachycardia. 4. Underlying schizoaffective disorder. 5. Hypothyroidism, on replacement. 6. Behavioral issue associated with her schizoaffective disorder. PLAN: 1. Admit to the medical floor. She is in the ICU on a GlucoStabilizer drip. 2. Continue some home meds. 3. I have ordered beta blockade to help with her heart rate and blood pressure. 4. We shall ascertain her code status from the penitentiary. 5. She will be [facility] once we get her sugars under better control. SERGIO DR: Sharonda TID: [id number] CC: Jesse Avitia DO, MAN M. ANAND, MD
[2021-07-02] MEDS ORDERED: FLUMAZENIL 0.5 MG/5 ML VIAL. IV ONE ×2 (11:40→11:45)
[2021-07-02 12:49] LABS: ALBUMIN 2.6 g/dL (3.4-5.0); ALBUMIN/GLOBULIN RATIO 0.6 (1.0-1.7); CREATININE 0.9 mg/dL (0.6-1.0); GFR 62.8; TOTAL BILIRUBIN 0.6 mg/dL (0.2-1.0); TOTAL PROTEIN 7.1 g/dL (6.4-8.2)
[2021-07-02] MEDS: traZODone 50 MG TABLET. PO SCH ×2 (13:00→17:00)
[2021-07-02 13:02] LABS: POTASSIUM 2.8 mmol/L (3.5-5.1)
[2021-07-02] MEDS: POTASSIUM CHLORIDE 20 MEQ TABLET.ER. PO SCH ×2 (13:37→17:28)
[2021-07-02] MEDS: MIRTAZAPINE 15 MG TABLET PO SCH (20:34)
[2021-07-02 21:19] LABS: CREATININE 0.8 mg/dL (0.6-1.0); POTASSIUM 3.3 mmol/L (3.5-5.1)
[2021-07-02 21:24] LABS: ALBUMIN 2.4 g/dL (3.4-5.0); ALBUMIN/GLOBULIN RATIO 0.6 (1.0-1.7); TOTAL BILIRUBIN 0.4 mg/dL (0.2-1.0); TOTAL PROTEIN 6.6 g/dL (6.4-8.2)
[2021-07-02] MEDS ORDERED: POTASSIUM CHLORIDE 20 MEQ TABLET.ER. PO ONE (21:45)
[2021-07-03] VITALS (13 sets, daily range): BP systolic 122–177; BP diastolic 60–85
[2021-07-03 00:10] LABS: HEMOGLOBIN A1C 11.5 % (4.8-5.6)
[2021-07-03] MEDS: LEVOTHYROXINE 112 MCG TABLET PO SCH (06:08)
[2021-07-03 06:25] LABS: ALBUMIN 2.3 g/dL (3.4-5.0); ALBUMIN/GLOBULIN RATIO 0.6 (1.0-1.7); CALCIUM 8.1 mg/dL (8.5-10.1); CREATININE 0.7 mg/dL (0.6-1.0); POTASSIUM 3.5 mmol/L (3.5-5.1); TOTAL BILIRUBIN 0.5 mg/dL (0.2-1.0); TOTAL PROTEIN 6.4 g/dL (6.4-8.2)
--- NOTE | 2021-07-03 07:24 | NUR ---
Called Dr Daniels, pt GAP is closed and labs improved. Pt had pulled IV out this morning, academic coordinator RN replaced IV. Order from Dr Daniels to switch pt back to sq insulin and potentially dc to [facility] later this afternoon.
[2021-07-03] MEDS ORDERED: DEXTROSE 50% 25 GM / 50ML DISP.SYRIN. IV PRN (07:30)
[2021-07-03] MEDS: INSULIN LISPRO 300 UNITS/3 ML VIAL. SQ SCH ×2 (08:13→12:17)
[2021-07-03] MEDS: OXYBUTYNIN CHLORIDE 5 MG TABLET PO SCH (08:14)
[2021-07-03] MEDS: PANTOPRAZOLE 40 MG TABLET. PO SCH (08:15)
[2021-07-03] MEDS: PROPRANOLOL 20 MG TABLET. PO SCH (08:15)
[2021-07-03] MEDS: METOPROLOL TART IMMED RELEASE 50 MG TABLET PO SCH (08:15)
[2021-07-03] MEDS: FUROSEMIDE 40 MG TABLET PO SCH (08:15)
[2021-07-03] MEDS: POLYETHYLENE GLYCOL 3350 17 GM PACKET. PO SCH (08:16)
[2021-07-03] MEDS: DIVALPROEX 125 MG CAP.SPRINK PO SCH (08:16)
[2021-07-03] MEDS: POTASSIUM CHLORIDE 10 MEQ TABLET.ER. PO SCH (08:16)
[2021-07-03] MEDS: CHOLECALCIFEROL (VITAMIN D3) 1,000 UNIT TABLET PO SCH (08:16)
[2021-07-03] MEDS: ASPIRIN ENTERIC COATED 81 MG TABLET.DR. PO SCH (08:16)
[2021-07-03] MEDS: MAGNESIUM OXIDE 400 MG TABLET PO SCH (08:17)
[2021-07-03] MEDS: SPIRONOLACTONE 25 MG TABLET PO SCH (08:19)
[2021-07-03] MEDS ORDERED: INSULIN GLARGINE SYRINGE. SQ SCH (09:00)
--- NOTE | 2021-07-03 13:07 | NUR ---
pt to dc to [facility], med rec completed by physicianaditya. report called to dave
--- NOTE | 2021-07-03 13:22 | NUR ---
pt transferred via wheelchair to u
[2021-07-03] MEDS ORDERED: LEVO175T5 PO (18:41)
[2021-07-03] MEDS ORDERED: EUCA50OI2 TP (18:41)
[2021-07-03] MEDS ORDERED: IBUP400T18 PO (18:41)
[2021-07-03] MEDS ORDERED: DICL20GE TP (18:41)
--- NOTE | 2021-07-03 22:20 | PN ---
DATE: 07/03/2021 SUBJECTIVE: The patient is a 65-year-old female patient who was admitted to be screened for coronavirus before she gets up to [facility]; however, she was found to be in diabetic ketoacidosis, was admitted to the ICU, started on DKA protocol in the form of IV fluid and insulin drip and she did actually very well. PHYSICAL EXAMINATION: GENERAL: When I saw her this morning, she was resting slightly propped up in bed, in no apparent respiratory distress. There was no pallor, jaundice, cyanosis, or thyromegaly. No jugular venous distention. No lower limb edema. VITAL SIGNS: Her heart rate was 71, blood pressure is 123/66, temperature was 97.4, respiratory rate was 25 and oxygen saturation was 98% on room air. HEAD, EYES, EARS, NOSE, AND THROAT: Showed normocephalic, atraumatic. NECK: Supple. HEART: Showed normal first and second heart sounds, no gallop or murmur. CHEST: Clear to auscultation, no crepitation or rhonchi. ABDOMEN: Distended, soft, nontender. NEUROLOGIC: She is awake, alert, responding appropriately. All cranial nerves intact. Moves extremities without difficulty. She claims that she is able to walk with a cane. Her intake over the last 24 hours was 1180, no output was recorded. LABORATORY DATA: As of this morning, her serum sodium was 135, potassium 3.5, chloride 108, bicarbonate 18, anion gap of 9, BUN 19, creatinine 0.7. Estimated GFR was 84 mL per minute. Her glucose 146, calcium was 8.1. Total bilirubin, AST, ALT were normal. Alkaline phosphatase slightly elevated. Total protein 6.4, albumin was 2.3. ASSESSMENT: Diabetic ketoacidosis, resolved. Her anion gap has closed. Other medical problems include type 2 diabetes mellitus that is insulin requiring, and longstanding history of schizoaffective disorder, bipolar disorder, anxiety, intellectual disability, developmental delay, impulse control disorder. PLAN: My plan is to discontinue the insulin drip. Continue on her home regimen of insulin in the form of Lantus 40 units subcutaneously twice a day and 28 units before meals 3 times a day. Continue with all other medication. She will be discharged to [facility] once all her paperwork becomes available and the consent was obtained from the family to go in for inpatient psychiatric stabilization. MARTY DR: Rain TID: [id number]
--- NOTE | 2021-07-07 02:42 | DS ---
DATE OF DISCHARGE: 07/03/2021 HOSPITAL COURSE: The patient is a 65-year-old female patient who was admitted to be screened for coronavirus before she gets up to [facility]; however, she was found to be in diabetic ketoacidosis and was admitted to the ICU and treated with DKA protocol in the form of IV fluids and insulin drip and did actually very well. Her anion gap has closed down to 9 from a high of 27, and her kidney function, her creatinine also improved from 1.1 down to 0.7. Her coronavirus by PCR was negative, and therefore, the patient was discharged to [facility] for inpatient psychiatric stabilization. PHYSICAL EXAMINATION: GENERAL: When I examined her on the day of discharge, she looked well and was clearly in no apparent respiratory distress. No pallor, jaundice, cyanosis, or thyromegaly. No jugular venous distention. No limb edema. VITAL SIGNS: Her heart rate was 71, blood pressure was 123/66, temperature was 97.4, respiratory rate was 25, and oxygen saturation was 98% on room air. HEAD, EYES, EARS, NOSE, AND THROAT: Normocephalic, atraumatic. NECK: Supple. HEART: Normal first and second heart sounds. No gallop, rub, or murmur. CHEST: Clear to auscultation, no crepitation or rhonchi. ABDOMEN: Distended, soft, nontender. NEUROLOGIC: She is awake, alert, responding appropriately. All cranial nerves intact. She moves extremities without difficulty. Her intake and output were incompletely recorded. LABORATORY DATA: Her lab work showed her white cell count to be 18,300, hemoglobin 14.7, hematocrit 45, MCV 87, and platelet count of 290,000. Her chemistry showed a serum sodium 135, potassium 3.5, chloride 108, bicarbonate 18, anion gap of 9, BUN 19, creatinine 0.7. Estimated GFR was 84 mL per minute. Her glucose 146, calcium was 8.1. Total bilirubin, AST, ALT were normal. Alkaline phosphatase slightly elevated. Total protein 6.4, albumin 2.3. Her D-dimer was 4.27. Urinalysis showed a large amount of protein, large amount of glucose, large amount of ketones. Her treponema pallidum antibodies were nonreactive and SARS coronavirus by PCR was negative. DISCHARGE MEDICATIONS: The patient was transferred to [facility] to continue on her acetaminophen 650 mg every 4 hours, aspirin 81 mg once a day, betamethasone valerate cream apply topically twice a day, bisacodyl 5 mg tablet once a day, furosemide 40 mg daily, NovoLog insulin 28 units 3 times a day before meals and Levemir insulin 40 units subcutaneously twice a day, ipratropium bromide-albuterol sulfate 3 mL by nebulizer twice a day, Mylanta 15 mL after meals and as needed, magnesium hydroxide for milk of magnesia 30 mL p.o. daily p.r.n. for constipation, magnesium oxide 400 mg daily, [place] Greaseless cream apply topically 4 times a day, omeprazole 20 mg once a day, oxybutynin chloride 5 mg daily, potassium chloride 10 mEq once a day, propranolol 40 mg daily, risperidone 25 mg in 2 mL intramuscular every 2 weeks, spironolactone 25 mg daily, trazodone 50 mg twice a day, trazodone 25 mg daily, and vitamin D3 2000 International Units once a day. FINAL DISCHARGE DIAGNOSES: 1. Diabetic ketoacidosis, resolved. 2. Type 2 diabetes mellitus. 3. Other medical problems include hypertension, hypomagnesemia. RYDER/OSMEL DR: Rain TID: [id number]
== END 2021-07-03 13:21 | DRG 637 ==
LOC: 1 SOUTH 14:20 → OBSVTOIN 23:44 → ICU 07-02 06:40
PROVIDERS: ADMIT Hospitalist; ATTEND Hospitalist
DX: E11.10 Type 2 diabetes mellitus with ketoacidosis without coma (principal); E43 Unspecified severe protein-calorie malnutrition; F41.9 Anxiety disorder, unspecified; F63.9 Impulse disorder, unspecified; I10 Essential (primary) hypertension; E03.9 Hypothyroidism, unspecified; F25.0 Schizoaffective disorder, bipolar type; E86.0 Dehydration; F03.90 Unspecified dementia, unspecified severity, without behavioral disturbance, psychotic disturbance, mood disturbance, and anxiety; Z20.822 Contact with and (suspected) exposure to COVID-19; Z88.8 Allergy status to other drugs, medicaments and biological substances; Z91.018 Allergy to other foods; Z79.4 Long term (current) use of insulin; Z68.35 Body mass index [BMI] 35.0-35.9, adult
CPT/HCPCS: 36415; 80048; 80053; 81001; 82306; 82607; 82947; 83036; 83540; 83550; 83735; 84436; 84443; 84480; 85027; 85379; 86592; 87086; 87426; 93005; G0378; G0379; J1815; J3490; U0003; J7030

== ENCOUNTER 2021-07-03 13:25 | Inpatient (IN) | payer MEDICARE, OTHER ==
[~2021-07-03] VITALS: Ht 167.6 cm; Wt 108.3 kg
[2021-07-03 13:15] VITALS: BP 148/68
--- NOTE | 2021-07-03 13:15 | NUR ---
Admission Note with Justification for Admission to [facility] Patient admitted to [facility] for protective oversight for emergency stabilization of acute psychiatric crisis. Pt admitted from: SNF Mode of arrival: w/c Accompanied By: [facility] Staff Precipitating behaviors that initiated intake and admission: refusing meds, decreased blood sugars, irritable, agitated, verbally aggressive, swearing, screaming Description of failure of out patient attempts at stabilization in previous setting list behavior and medication trials: psych nurse recommends in patient treatment, meds, UA Behaviors and assessment findings upon admission: Pt is relaxed laying in bed listening to music at time of assessment. Pt is A&O x3. She was cooperative with answering orientation questions, but she refused every other part of her assessment beyond that. Pt would not let me listen to her heart, lung and bowel sounds and would not allow me to perform a skin assessment. Pt then began to pretend as if she were asleep. Pt was left to be alone in her room. Will continue to monitor. Plan: Admit for protective oversight for adjustment and stabilization of medications, behaviors and mood. Intense treatment regimen including groups, medication adjustments, therapy, consistent regimen for ADL's, self care, and sleep hygiene. Daily monitoring by Inpatient staff, Psychiatry, and Medical Physician.
[~2021-07-03 13:25] MED LIST changes: +INSU100C4 SQ; +MAGN400T5 PO; +SPIR25TA5 PO
[2021-07-03 16:01] VITALS: BP 126/81
[2021-07-03] MEDS ORDERED: METHYL SALICYLATE/MENTHOL TOPICAL OINTMENT 57GM TUBE. TP PRN ×2 (16:30→18:45)
[2021-07-03] MEDS ORDERED: MAG HYDROX/AL HYDROX/SIMETH 30 ML ORAL.SUSP PO PRN ×2 (16:30→18:45)
[2021-07-03] MEDS ORDERED: ACETAMINOPHEN 325 MG TABLET PO PRN (16:30)
[2021-07-03] MEDS ORDERED: MAGNESIUM HYDROXIDE 2,400 MG/30 ML ORAL.SUSP. PO PRN (16:30)
[2021-07-03] MEDS ORDERED: IBUP400T18 PO (18:41)
[2021-07-03] MEDS ORDERED: DICL20GE TP (18:41)
[2021-07-03] MEDS ORDERED: EUCA50OI2 TP (18:41)
[2021-07-03] MEDS ORDERED: LEVO175T5 PO (18:41)
[2021-07-03] MEDS ORDERED: DICLOFENAC SODIUM 1% TOPICAL GEL 100GM TUBE. TP PRN (18:45)
[2021-07-03] MEDS ORDERED: BISACODYL TAB 5 MG TABLET.DR. PO PRN (18:45)
[2021-07-03] MEDS ORDERED: NON FORMULARY ITEM (Magnesium Hydroxide (Milk Of Magnesia) 2,400 MG) PO PRN (18:45)
[2021-07-03] MEDS ORDERED: IPRATROPIUM/ALBUTEROL 20/100mcg/INH INHALER. INH PRN (19:15)
[2021-07-03] MEDS ORDERED: BETAMETHASONE DP AUGMENTED 0.05% 15gm CREAM TUBE. TP PRN (19:15)
[2021-07-03] MEDS ORDERED: POLYETHYLENE GLYCOL 3350 17 GM PACKET. PO PRN (19:15)
[2021-07-03] MEDS ORDERED: guaiFENesin DM 200MG/20MG 10 ML SYRUP PO PRN (19:15)
[2021-07-03] MEDS ORDERED: MENTHOL TP SCH (21:00)
[2021-07-03] MEDS ORDERED: CAMPHOR TP SCH (21:00)
[2021-07-03] MEDS ORDERED: EUCALYPTUS OIL TP SCH (21:00)
[2021-07-03] MEDS: MIRTAZAPINE 15 MG TABLET PO SCH (21:37)
[2021-07-03] MEDS: DIVALPROEX 125 MG CAP.SPRINK PO SCH (21:37)
[2021-07-03] MEDS: clonazePAM 0.5 MG TABLET PO SCH (21:37)
[2021-07-03] MEDS: INSULIN GLARGINE SYRINGE. SQ SCH (21:39)
--- NOTE | 2021-07-03 22:00 | PDOC ---
Exam Note: Donte Note: Please also refer to the separate dictated note~for this date of service dictated separately.~Patient seen individually. Discussed the patient with Nursing staff reviewed the chart.~Reviewed interim history and current functioning. Reviewed vital signs,~Labs/ Radiology~and current medications noted below. Continue current treatment with the changes noted in the dictated addendum note Assessment: Vital Signs/I&O: Vital Signs Date Time Temp Pulse Resp B/P (MAP) Pulse Ox O2 Delivery O2 Flow Rate FiO2 07/03/21 16:01 97.8 76 16 126/81 (96) 98 Labs: Laboratory Tests Test 07/03/21 19:29 Glucose (Fingerstick) 188 mg/dL (70-99) H Current Medications: Meds: Current Medications Medications (Trade) Dose Ordered Sig/Leonides Route PRN Reason Start Time Stop Time Status Last Admin Dose Admin Clonazepam (KlonoPIN) 0.5 mg TID PO 07/03/21 21:00 07/03/21 21:37 Divalproex Sodium (Depakote Sprinkles) 250 mg BID PO 07/03/21 21:00 07/03/21 21:37 Mirtazapine (Remeron) 15 mg QHS PO 07/03/21 21:00 07/03/21 21:37 Insulin Glargine (Lantus Syringe) 40 unit BID SQ 07/03/21 21:00 07/03/21 21:39 I have reviewed the current psychotropics carefully including drug interactions. Risk benefit ratio favors no change other than as noted in my dictated progress note. Diagnosis: Problems: (1) Schizoaffective disorder, bipolar type (2) Bipolar disorder, curr episode mixed, severe, with psychotic features (3) Anxiety disorder, unspecified (4) Impulse disorder, unspecified (5) Mild cognitive impairment RAJIV VELAZQUEZ MD Jul 03, 2021 22:00
--- NOTE | 2021-07-04 00:55 | NUR ---
Nursing Note The patient was located in her room laying in bed for her assessment and medication pass. The patient was alert to name, date and location. The patient was cooperative with her medications and took them whole. The patient is currently sleeping in her room.
[2021-07-04] MEDS: LEVOTHYROXINE 175 MCG TABLET PO SCH (06:00)
[2021-07-04 06:18] VITALS: BP 134/83
[2021-07-04 07:02] LABS: BASO # 0.1 x10^3/uL (0.0-0.2); BASO % 1 % (0-3); EOS # 0.3 x10^3/uL (0.0-0.7); EOS % 4 % (0-3); HEMATOCRIT 37.2 % (36.0-47.0); HEMOGLOBIN 12.7 g/dL (12.0-15.5); LYMPH # 1.8 x10^3/uL (1.0-4.8); LYMPH % 24 % (24-48); MEAN CORPUSCULAR HEMOGLOBIN 28 pg (25-35); MEAN CORPUSCULAR HGB CONC 34 g/dL (31-37); MEAN CORPUSCULAR VOLUME 82 fL (79-100); MONO # 0.9 x10^3/uL (0.0-1.1); MONO % 11 % (0-9); NEUT # 4.5 x10^3uL (1.8-7.7); NEUT % 60 % (31-73); PLATELET COUNT 207 x10^3/uL (140-400); RED BLOOD COUNT 4.52 x10^6/uL (3.50-5.40); RED CELL DISTRIBUTION WIDTH 14.8 % (11.5-14.5); WHITE BLOOD COUNT 7.6 x10^3/uL (4.0-11.0)
[2021-07-04 07:25] LABS: ALBUMIN 2.4 g/dL (3.4-5.0); ALBUMIN/GLOBULIN RATIO 0.6 (1.0-1.7); ALK PHOS 135 U/L (46-116); ALT (SGPT) 36 U/L (14-59); ANION GAP 12 (6-14); AST (SGOT) 47 U/L (15-37); BLOOD UREA NITROGEN 17 mg/dL (7-20); BUN/CREATININE RATIO 24 (6-20); CALCIUM 8.2 mg/dL (8.5-10.1); CARBON DIOXIDE 21 mmol/L (21-32); CHLORIDE 103 mmol/L (98-107); CREATININE 0.7 mg/dL (0.6-1.0); GLUCOSE 266 mg/dL (70-99); SODIUM 136 mmol/L (136-145); TOTAL BILIRUBIN 0.6 mg/dL (0.2-1.0); TOTAL PROTEIN 6.4 g/dL (6.4-8.2)
[2021-07-04 07:43] LABS: VAL ACID 32 mcg/mL (50-100)
[2021-07-04 07:46] LABS: POTASSIUM 2.9 mmol/L (3.5-5.1)
--- NOTE | 2021-07-04 07:56 | NUR ---
Informed by lab that pt has critical lab of potassium 2.9, paged.
[2021-07-04] MEDS: INSULIN LISPRO 300 UNITS/3 ML VIAL. SQ SCH ×3 (08:00→17:00)
[2021-07-04] MEDS ORDERED: POTASSIUM CHLORIDE 20 MEQ TABLET.ER. PO ONE ×3 (08:45→10:45)
[2021-07-04] MEDS: CHOLECALCIFEROL (VITAMIN D3) 1,000 UNIT TABLET PO SCH (08:59)
[2021-07-04] MEDS: MAGNESIUM OXIDE 400 MG TABLET PO SCH (09:00)
[2021-07-04] MEDS ORDERED: POTASSIUM CHLORIDE 10 MEQ TABLET.ER. PO SCH (09:00)
[2021-07-04] MEDS: INSULIN GLARGINE SYRINGE. SQ SCH ×2 (09:00→21:30)
[2021-07-04] MEDS: SPIRONOLACTONE 25 MG TABLET PO SCH (09:00)
[2021-07-04] MEDS: traZODone 50 MG TABLET. PO SCH ×3 (09:00→17:22)
[2021-07-04] MEDS: PROPRANOLOL 20 MG TABLET. PO SCH (09:00)
[2021-07-04] MEDS: clonazePAM 0.5 MG TABLET PO SCH ×3 (09:00→21:33)
[2021-07-04] MEDS: OXYBUTYNIN CHLORIDE 5 MG TABLET PO SCH (09:00)
[2021-07-04] MEDS: FUROSEMIDE 40 MG TABLET PO SCH (09:01)
[2021-07-04] MEDS: ASPIRIN ENTERIC COATED 81 MG TABLET.DR. PO SCH (09:01)
[2021-07-04] MEDS: DIVALPROEX 125 MG CAP.SPRINK PO SCH ×2 (09:01→21:34)
[2021-07-04] MEDS: PANTOPRAZOLE 40 MG TABLET. PO SCH (09:01)
--- NOTE | 2021-07-04 11:02 | NUR ---
WEEKLY ACTIVITY THERAPY NOTE Date of Admission:07/03/21 Date of AT Assessment:TBD Precipitating behaviors that initiated intake and admission: refusing meds, decreased blood sugars, irritable, agitated, verbally aggressive, swearing, screaming Goal aimed:TBD Initial Goal: TBD Weekly progress towards goal: NA Group participation level: NA Weekly highlights: arrived on [facility] Behaviors observed: new patient Plan: meet/assess pt Beneficial adaptations: TBD, previous admission pt enjoyed music
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
[2021-07-04 13:37] LABS: CALCIUM 8.4 mg/dL (8.5-10.1); GFR 55.6; POTASSIUM 3.6 mmol/L (3.5-5.1)
--- NOTE | 2021-07-04 15:54 | NUR ---
spoke to charge nurse and ordered 3 one time orders for potassium 40meq at 0830, 0930, and 1030. Then have labs to be repeated at 1pm. Orders were put in and medications administered. Labs were drawn. Awaiting results.
--- NOTE | 2021-07-04 15:55 | NUR ---
Pt. has been withdrawn to her room for majority of the day. When pt was to take her last dose of potassium she did try and refuse, but nurse gave education on why it is beneficial to take the medication and she ended up taking it. Pt. told PT/OT that she needed help wiping her butt, because she cannot do it herself and that she lives with her son, who has to wipe her bottom at home. Pt does not live with son and performs ADL's independently according to her facility. Pt has had a flat affect and not really spoken to staff or other patients.
[2021-07-04 16:29] VITALS: BP 137/82
[2021-07-04] MEDS: MIRTAZAPINE 15 MG TABLET PO SCH (21:34)
--- NOTE | 2021-07-04 22:19 | PDOC ---
Exam Note: Donte Note: Please also refer to the separate dictated note~for this date of service dictated separately.~Patient seen individually. Discussed the patient with Nursing staff reviewed the chart.~Reviewed interim history and current functioning. Reviewed vital signs,~Labs/ Radiology~and current medications noted below. Continue current treatment with the changes noted in the dictated addendum note Assessment: Vital Signs/I&O: Vital Signs Date Time Temp Pulse Resp B/P (MAP) Pulse Ox O2 Delivery O2 Flow Rate FiO2 07/04/21 16:29 98.0 72 16 137/82 (100) 98 I & O 07/03/21 07/03/21 07/04/21 14:00 22:00 06:00 Intake Total 360 ml 240 ml Balance 360 ml 240 ml Labs: Laboratory Tests Test 07/04/21 06:32 07/04/21 08:06 07/04/21 12:03 07/04/21 13:15 White Blood Count 7.6 x10^3/uL (4.0-11.0) Red Blood Count 4.52 x10^6/uL (3.50-5.40) Hemoglobin 12.7 g/dL (12.0-15.5) Hematocrit 37.2 % (36.0-47.0) Mean Corpuscular Volume 82 fL (79-100) # Mean Corpuscular Hemoglobin 28 pg (25-35) Mean Corpuscular Hemoglobin Concent 34 g/dL (31-37) Red Cell Distribution Width 14.8 % (11.5-14.5) H Platelet Count 207 x10^3/uL (140-400) Neutrophils (%) (Auto) 60 % (31-73) Lymphocytes (%) (Auto) 24 % (24-48) Monocytes (%) (Auto) 11 % (0-9) H Eosinophils (%) (Auto) 4 % (0-3) H Basophils (%) (Auto) 1 % (0-3) Neutrophils # (Auto) 4.5 x10^3uL (1.8-7.7) Lymphocytes # (Auto) 1.8 x10^3/uL (1.0-4.8) Monocytes # (Auto) 0.9 x10^3/uL (0.0-1.1) Eosinophils # (Auto) 0.3 x10^3/uL (0.0-0.7) Basophils # (Auto) 0.1 x10^3/uL (0.0-0.2) Sodium Level 136 mmol/L (136-145) 134 mmol/L (136-145) L Potassium Level 2.9 mmol/L (3.5-5.1) *L 3.6 mmol/L (3.5-5.1) Chloride Level 103 mmol/L (98-107) 101 mmol/L (98-107) Carbon Dioxide Level 21 mmol/L (21-32) 22 mmol/L (21-32) Anion Gap 12 (6-14) 11 (6-14) Blood Urea Nitrogen 17 mg/dL (7-20) 18 mg/dL (7-20) Creatinine 0.7 mg/dL (0.6-1.0) 1.0 mg/dL (0.6-1.0) Estimated GFR (Cockcroft-Gault) 84.0 55.6 BUN/Creatinine Ratio 24 (6-20) H Glucose Level 266 mg/dL (70-99) H 347 mg/dL (70-99) H Calcium Level 8.2 mg/dL (8.5-10.1) L 8.4 mg/dL (8.5-10.1) L Total Bilirubin 0.6 mg/dL (0.2-1.0) Aspartate Amino Transferase (AST) 47 U/L (15-37) H Alanine Aminotransferase (ALT) 36 U/L (14-59) Alkaline Phosphatase 135 U/L (46-116) H Total Protein 6.4 g/dL (6.4-8.2) Albumin 2.4 g/dL (3.4-5.0) L Albumin/Globulin Ratio 0.6 (1.0-1.7) L Valproic Acid Level 32 mcg/mL (50-100) L Valproic Acid Last Dose Date 07/03/21 Valproic Acid Last Dose Time 2100 Glucose (Fingerstick) 253 mg/dL (70-99) H 343 mg/dL (70-99) H Test 07/04/21 17:07 07/04/21 19:48 Glucose (Fingerstick) 63 mg/dL (70-99) L 123 mg/dL (70-99) H Current Medications: Meds: Laboratory Tests Test 07/04/21 06:32 07/04/21 08:06 07/04/21 12:03 07/04/21 13:15 White Blood Count 7.6 x10^3/uL Red Blood Count 4.52 x10^6/uL Hemoglobin 12.7 g/dL Hematocrit 37.2 % Mean Corpuscular Volume 82 fL Mean Corpuscular Hemoglobin 28 pg Mean Corpuscular Hemoglobin Concent 34 g/dL Red Cell Distribution Width 14.8 % Platelet Count 207 x10^3/uL Neutrophils (%) (Auto) 60 % Lymphocytes (%) (Auto) 24 % Monocytes (%) (Auto) 11 % Eosinophils (%) (Auto) 4 % Basophils (%) (Auto) 1 % Neutrophils # (Auto) 4.5 x10^3uL Lymphocytes # (Auto) 1.8 x10^3/uL Monocytes # (Auto) 0.9 x10^3/uL Eosinophils # (Auto) 0.3 x10^3/uL Basophils # (Auto) 0.1 x10^3/uL Sodium Level 136 mmol/L 134 mmol/L Potassium Level 2.9 mmol/L 3.6 mmol/L Chloride Level 103 mmol/L 101 mmol/L Carbon Dioxide Level 21 mmol/L 22 mmol/L Anion Gap 12 11 Blood Urea Nitrogen 17 mg/dL 18 mg/dL Creatinine 0.7 mg/dL 1.0 mg/dL Estimated GFR (Cockcroft-Gault) 84.0 55.6 BUN/Creatinine Ratio 24 Glucose Level 266 mg/dL 347 mg/dL Calcium Level 8.2 mg/dL 8.4 mg/dL Total Bilirubin 0.6 mg/dL Aspartate Amino Transf (AST/SGOT) 47 U/L Alanine Aminotransferase (ALT/SGPT) 36 U/L Alkaline Phosphatase 135 U/L Total Protein 6.4 g/dL Albumin 2.4 g/dL Albumin/Globulin Ratio 0.6 Valproic Acid (Depakene) Level 32 mcg/mL Valproic Acid Last Dose Date 07/03/21 Valproic Acid Last Dose Time 2100 Glucose (Fingerstick) 253 mg/dL 343 mg/dL Test 07/04/21 17:07 07/04/21 19:48 Glucose (Fingerstick) 63 mg/dL 123 mg/dL Current Medications Medications (Trade) Dose Ordered Sig/Leonides Route PRN Reason Start Time Stop Time Status Last Admin Dose Admin Acetaminophen (Tylenol) 650 mg PRN Q6HRS PRN PO MILD PAIN / TEMP > 100.3'F 07/03/21 16:30 Cancel Multi-Ingredient Ointment (Analgesic [place]) 1 swathi PRN QID PRN TP MUSCLE PAIN 07/03/21 16:30 Al Hydroxide/Mg Hydroxide (Mylanta Plus Xs) 15 ml PRN AFTMEALHC PRN PO DYSPEPSIA 07/03/21 16:30 Magnesium Hydroxide (Milk Of Magnesia) 2,400 mg PRN QHS PRN PO 2ND CHOICE CONSTIPATION 07/03/21 16:30 Acetaminophen (Tylenol) 650 mg PRN Q4HRS PRN PO MILD PAIN / TEMP > 100.3'F 07/03/21 18:45 Aspirin (Aspirin Enteric Coated) 81 mg DAILY PO 07/04/21 09:00 07/04/21 09:01 Bisacodyl (Dulcolax Tab) 5 mg PRN DAILY PRN PO 3RD CHOICE CONSTIPATION 07/03/21 18:45 Clonazepam (KlonoPIN) 0.5 mg TID PO 07/03/21 21:00 07/04/21 21:33 Diclofenac Sodium (Voltaren) 1 swathi PRN Q6HRS PRN TP PAIN 07/03/21 18:45 Divalproex Sodium (Depakote Sprinkles) 250 mg BID PO 07/03/21 21:00 07/04/21 21:34 Furosemide (Lasix) 40 mg DAILY PO 07/04/21 09:00 07/04/21 09:01 Ibuprofen (Motrin) 400 mg PRN Q6HRS PRN PO MILD PAIN / TEMP > 100.3'F 07/03/21 18:45 Albuterol/ Ipratropium (Combivent Respimat 20-100 Mcg) 1 puff PRN BID PRN INH SHORTNESS OF BREATH 07/03/21 19:15 Levothyroxine Sodium (Synthroid) 175 mcg DAILY06 PO 07/04/21 06:00 07/04/21 06:00 Al Hydroxide/Mg Hydroxide (Mylanta Plus Xs) 15 ml PRN AFTMEALHC PRN PO DYSPEPSIA 07/03/21 18:45 UNV Magnesium Oxide (Magnesium Oxide) 400 mg DAILY PO 07/04/21 09:00 07/04/21 09:00 Multi-Ingredient Ointment (Analgesic [place]) 1 swathi PRN QID PRN TP MUSCLE PAIN 07/03/21 18:45 UNV Mirtazapine (Remeron) 15 mg QHS PO 07/03/21 21:00 07/04/21 21:34 Risperidone (RisperDAL CONSTA) 25 mg Q2WKS IM 07/05/21 09:00 Spironolactone (Aldactone) 25 mg DAILY PO 07/04/21 09:00 07/04/21 09:00 Trazodone HCl (Desyrel) 25 mg DAILY PO 07/04/21 09:00 07/04/21 09:00 Trazodone HCl (Desyrel) 50 mg BID@1300,1700 PO 07/04/21 13:00 07/04/21 17:22 Betamethasone Dipropion Augmented (Betamethasone Dp Aug 0.05% Cream) 1 swathi PRN BID PRN TP RASH 07/03/21 19:15 Non-Formulary Medication (Eucalyptus Oil/ Menthol/Camphor (Vicks Vaporub Ointment)) 50 gm QHS TP 07/03/21 21:00 UNV Guaifenesin (Robitussin Dm) 10 ml PRN Q4HRS PRN PO COUGH 07/03/21 19:15 Insulin Human Lispro (HumaLOG) 28 units TIDWMEALS SQ 07/04/21 08:00 07/04/21 12:36 Insulin Glargine (Lantus Syringe) 40 unit BID SQ 07/03/21 21:00 07/04/21 21:30 Non-Formulary Medication (Magnesium Hydroxide (Milk Of Magnesia)) 2,400 mg PRN QHS PRN PO CONSTIPATION 07/03/21 18:45 UNV Pantoprazole Sodium (Protonix) 40 mg DAILY PO 07/04/21 09:00 07/04/21 09:01 Oxybutynin Chloride (Ditropan) 5 mg DAILY PO 07/04/21 09:00 07/04/21 09:00 Polyethylene Glycol (miraLAX) 17 gm PRN Q72HRS PRN PO 1ST CHOICE CONSTIPATION 07/03/21 19:15 Potassium Chloride (Klor-Con) 10 meq DAILY PO 07/04/21 09:00 07/04/21 08:42 DC Propranolol HCl (Inderal) 40 mg DAILY PO 07/04/21 09:00 07/04/21 09:00 Vitamin D (Vitamin D3) 2,000 unit DAILY PO 07/04/21 09:00 07/04/21 08:59 Potassium Chloride (Klor-Con) 20 meq BID PO 07/05/21 09:00 Potassium Chloride (Klor-Con) 40 meq 1X ONCE PO 07/04/21 08:45 07/04/21 08:46 DC 07/04/21 08:59 Potassium Chloride (Klor-Con) 40 meq 1X ONCE PO 07/04/21 09:45 07/04/21 09:46 DC 07/04/21 10:02 Potassium Chloride (Klor-Con) 40 meq 1X ONCE PO 07/04/21 10:45 07/04/21 10:46 DC 07/04/21 10:45 Current Medications Medications (Trade) Dose Ordered Sig/Leonides Route PRN Reason Start Time Stop Time Status Last Admin Dose Admin Aspirin (Aspirin Enteric Coated) 81 mg DAILY PO 07/04/21 09:00 07/04/21 09:01 Furosemide (Lasix) 40 mg DAILY PO 07/04/21 09:00 07/04/21 09:01 Levothyroxine Sodium (Synthroid) 175 mcg DAILY06 PO 07/04/21 06:00 07/04/21 06:00 Magnesium Oxide (Magnesium Oxide) 400 mg DAILY PO 07/04/21 09:00 07/04/21 09:00 Spironolactone (Aldactone) 25 mg DAILY PO 07/04/21 09:00 07/04/21 09:00 Trazodone HCl (Desyrel) 25 mg DAILY PO 07/04/21 09:00 07/04/21 09:00 Trazodone HCl (Desyrel) 50 mg BID@1300,1700 PO 07/04/21 13:00 07/04/21 17:22 Insulin Human Lispro (HumaLOG) 28 units TIDWMEALS SQ 07/04/21 08:00 07/04/21 12:36 Pantoprazole Sodium (Protonix) 40 mg DAILY PO 07/04/21 09:00 07/04/21 09:01 Oxybutynin Chloride (Ditropan) 5 mg DAILY PO 07/04/21 09:00 07/04/21 09:00 Propranolol HCl (Inderal) 40 mg DAILY PO 07/04/21 09:00 07/04/21 09:00 Vitamin D (Vitamin D3) 2,000 unit DAILY PO 07/04/21 09:00 07/04/21 08:59 Potassium Chloride (Klor-Con) 40 meq 1X ONCE PO 07/04/21 08:45 07/04/21 08:46 DC 07/04/21 08:59 Potassium Chloride (Klor-Con) 40 meq 1X ONCE PO 07/04/21 09:45 07/04/21 09:46 DC 07/04/21 10:02 Potassium Chloride (Klor-Con) 40 meq 1X ONCE PO 07/04/21 10:45 07/04/21 10:46 DC 07/04/21 10:45 I have reviewed the current psychotropics carefully including drug interactions. Risk benefit ratio favors no change other than as noted in my dictated progress note. Diagnosis: Problems: (1) Schizoaffective disorder, bipolar type (2) Mild cognitive impairment (3) Anxiety disorder, unspecified (4) Impulse disorder, unspecified (5) Bipolar disorder, curr episode mixed, severe, with psychotic features RAJIV VELAZQUEZ MD Jul 04, 2021 22:19
--- NOTE | 2021-07-04 22:52 | HP ---
ADMIT DATE: 07/03/2021 This is a late entry, date of service 07/03/2021 covers the elements not covered in my initial note. I met with the patient in the evening of 07/03/2021. IDENTIFYING DATA: The patient is a 65-year-old female referred back to us from [facility] where she resides on account of an exacerbation of her schizoaffective disorder, bipolar type with psychotic features. The patient has been refusing medications, irritable, agitated, verbally aggressive, swearing and screaming. She had failed outpatient psychiatric interventions resulting in this referral. CHIEF COMPLAINT: "I'm okay." The patient had a very intense stare and this is typical for her partly reflective of paranoia. HISTORY OF PRESENT ILLNESS: The patient has a history of schizoaffective disorder, bipolar type. She has been admitted with us in the past and recently has been stable at the retirement, but over the last few days, she has been increasingly paranoid, having mood swings, agitation, sleep and appetite changes and aggression as noted above. No active suicidal or homicidal ideation. PAST PSYCHIATRIC HISTORY: As above. PAST MEDICAL HISTORY: Positive for diabetes mellitus, hyperlipidemia, hypothyroidism, mild cognitive deficits. Accu-Cheks before meals and at bedtime. CODE STATUS: Full code. ALLERGIES: VITAMIN C, CLONIDINE, LACTULOSE, LITHIUM, MEPERIDINE, DEMEROL, ZYPREXA, AVOCADO AND STRAWBERRIES. DIET: Regular. Takes medications whole. Ambulates ad sherlyn. UA contaminated. CURRENT PSYCHOTROPICS: Klonopin 0.5 mg t.i.d., Depakote sprinkles 250 b.i.d., Remeron 15 mg at bedtime, Risperdal Consta 25 mg q. 2 weeks, trazodone 25 mg daily, 50 mg at 1300, 1700. Valproic acid level at admission is 72, therapeutic. FAMILY HISTORY: Noncontributory. SOCIAL HISTORY: No history of alcohol, drug abuse, physical, sexual or elder abuse. She is not known to be a perpetrator. REACTION TO HOSPITALIZATION: The patient accepting of it. REVIEW OF SYSTEMS: No CV, , pulmonary, eye, ENT system symptoms on review. Reliability varies. MENTAL STATUS EXAM: The patient is oriented reasonably. Speech moderate to marked latency, often responses monosyllabic. Abstraction fair. Computation impaired. Language function intact. Attention span short. She is quite paranoid. She has a glaring expression and a piercing gaze about, this is reflective of her paranoia. She is somewhat distractible. No suicidal or homicidal ideation. LABORATORY DATA: Reviewed. IMPRESSION: Schizoaffective disorder, bipolar type, mixed with psychotic features; anxiety disorder, unspecified; impulse control disorder, unspecified. Rest unchanged from admission. PLAN: Admit to geropsychiatry unit, [facility]. I will see the patient daily individually from a psychiatric standpoint, medical followup, Dr. Daniels/Dr. Delatorre. Continue current psychotropics. Observe baseline, adjust as clinically indicated. The patient was staffed at a treatment team meeting with entire team morning on 07/04/2021 with MIN Ramirez and Reyna Smith [facility], [facility], Tg, activity therapy. Also discussed with Kylie COPELAND in the evening. She has been refusing her potassium and insulin, but no sexually inappropriate behaviors have been noted, which is something that had occurred at the retirement prior to this referral as well. She nevertheless, she has had some bizarre behaviors, urinated on herself, bite herself and then threw the ___ floor. Potassium is critical. We will defer to Dr. Daniels. We will adjust psychotropics and once she is stable to transition back to retirement. ESTIMATED LENGTH OF STAY: 10-[address]: René TID: [id number]
--- NOTE | 2021-07-05 00:45 | NUR ---
Nursing Note Pt compliant with meds and assessment, in room conversing with another RN recognized her from previous admission. No behaviors noted, cooperative.
[2021-07-05] MEDS: LEVOTHYROXINE 175 MCG TABLET PO SCH (06:00)
[2021-07-05 06:19] VITALS: BP 130/78
[2021-07-05] MEDS: ASPIRIN ENTERIC COATED 81 MG TABLET.DR. PO SCH (08:23)
[2021-07-05] MEDS: OXYBUTYNIN CHLORIDE 5 MG TABLET PO SCH (08:23)
[2021-07-05] MEDS: FUROSEMIDE 40 MG TABLET PO SCH (08:23)
[2021-07-05] MEDS: clonazePAM 0.5 MG TABLET PO SCH ×3 (08:23→20:47)
[2021-07-05] MEDS: PANTOPRAZOLE 40 MG TABLET. PO SCH (08:24)
[2021-07-05] MEDS: traZODone 50 MG TABLET. PO SCH ×3 (08:24→17:20)
[2021-07-05] MEDS: DIVALPROEX 125 MG CAP.SPRINK PO SCH ×2 (08:24→20:47)
[2021-07-05] MEDS: SPIRONOLACTONE 25 MG TABLET PO SCH (08:25)
[2021-07-05] MEDS: PROPRANOLOL 20 MG TABLET. PO SCH (08:26)
[2021-07-05] MEDS: CHOLECALCIFEROL (VITAMIN D3) 1,000 UNIT TABLET PO SCH (08:26)
[2021-07-05] MEDS: POTASSIUM CHLORIDE 10 MEQ TABLET.ER. PO SCH ×2 (08:27→20:47)
[2021-07-05] MEDS: risperiDONE MICROSPHERES 25 MG/2 ML DISP.SYRIN. IM SCH (08:27)
[2021-07-05] MEDS: MAGNESIUM OXIDE 400 MG TABLET PO SCH (08:30)
[2021-07-05] MEDS: INSULIN LISPRO 300 UNITS/3 ML VIAL. SQ SCH ×3 (09:18→17:22)
[2021-07-05] MEDS: INSULIN GLARGINE SYRINGE. SQ SCH ×2 (09:19→20:49)
--- NOTE | 2021-07-05 09:31 | PDOC ---
Exam Note: Donte Note: This note is a late entry for 07/04/2021 covers elements not covered in my initial note. Subjective: The patient was reviewed at treatment team meeting individually in the morning on 07/04/2021 with Marixa Sim (public health social worker), Tg, activity therapy and James COPELAND, discussed and reviewed the chart. The patient slept 7-1/2 hours previous night. She is compliant with medications and insulin. She urinated on the floor. She refused potassium and insulin. No sexually inappropriate comments noted. She is somewhat paranoid. Review of Systems: Ambulation impaired. No CV, , pulmonary, eye, ENT system symptoms on review. Mental Status Exam: The patient is oriented to herself. I met with her in her room. Speech coherent. Abstraction fair. Computation impaired. Language function intact. Mood and affect somewhat paranoid, withdrawn. No suicidal or homicidal ideation. Laboratory Data: Reviewed. Valproic acid level therapeutic. Impression: Schizoaffective disorder, bipolar type mixed with psychotic features. Anxiety disorder unspecified. Impulse control disorder unspecified. Plan: Continue current psychotropics. We will observe baseline. Adjust psychotropics as clinically indicated. Assessment: Vital Signs/I&O: Vital Signs Date Time Temp Pulse Resp B/P (MAP) Pulse Ox O2 Delivery O2 Flow Rate FiO2 07/05/21 08:26 91 130/78 07/05/21 06:19 96.9 16 97 I & O 07/04/21 07/04/21 07/05/21 14:00 22:00 06:00 Intake Total 1320 ml Balance 1320 ml Labs: Laboratory Tests Test 07/04/21 12:03 07/04/21 13:15 07/04/21 17:07 07/04/21 19:48 Glucose (Fingerstick) 343 mg/dL (70-99) H 63 mg/dL (70-99) L 123 mg/dL (70-99) H Sodium Level 134 mmol/L (136-145) L Potassium Level 3.6 mmol/L (3.5-5.1) Chloride Level 101 mmol/L (98-107) Carbon Dioxide Level 22 mmol/L (21-32) Anion Gap 11 (6-14) Blood Urea Nitrogen 18 mg/dL (7-20) Creatinine 1.0 mg/dL (0.6-1.0) Estimated GFR (Cockcroft-Gault) 55.6 Glucose Level 347 mg/dL (70-99) H Calcium Level 8.4 mg/dL (8.5-10.1) L Test 07/05/21 07:34 Glucose (Fingerstick) 237 mg/dL (70-99) H Current Medications: Meds: Current Medications Medications (Trade) Dose Ordered Sig/Leonides Route PRN Reason Start Time Stop Time Status Last Admin Dose Admin Risperidone (RisperDAL CONSTA) 25 mg Q2WKS IM 07/05/21 09:00 07/05/21 08:27 Trazodone HCl (Desyrel) 50 mg BID@1300,1700 PO 07/04/21 13:00 07/04/21 17:22 Potassium Chloride (Klor-Con) 20 meq BID PO 07/05/21 09:00 07/05/21 08:27 Potassium Chloride (Klor-Con) 40 meq 1X ONCE PO 07/04/21 10:45 07/04/21 10:46 DC 07/04/21 10:45 I have reviewed the current psychotropics carefully including drug interactions. Risk benefit ratio favors no change other than as noted in my dictated progress note. Diagnosis: Problems: (1) Schizoaffective disorder, bipolar type (2) Anxiety disorder, unspecified (3) Impulse disorder, unspecified (4) Bipolar disorder, curr episode mixed, severe, with psychotic features RAJIV VELAZQUEZ MD Jul 05, 2021 09:31
--- NOTE | 2021-07-05 10:03 | NUR ---
nurse note Patient for meals, yelled at nurse for a few seconds while getting meds, redirected by nurse Patient compliant with medication. Patient withdrawn to room.
--- NOTE | 2021-07-05 13:30 | NUR ---
ACTIVITY THERAPY ASSESSMENT Completed based on observation, notes, interview and previous admission. Pt. was finishing lunch and initially was not interested in talking to SHREDDING FLOOR EQUIPMENT OPERATOR. SHREDDING FLOOR EQUIPMENT OPERATOR returned 20 minutes later and Pt was willing to answer assessment questions. Pt. remembered being here, she asked for a Jhony to listen to "[employer]" station. She denied offered books, magazines, cards, journal, and coloring pages. She said she was here because she was vomiting and have bad stomach pain. Pt. has a history of being labile, verbally aggressive, impulsive, and uncooperative. Simple, clear, firm, direct boundaries and directions needed. Pt. responds well to music and music in groups. It's been noted Pt. enjoys picture framing, walking and reading. Pt. does not tend to socialize with others. Initial goal aimed to increase stimulation and socialization: Pt. will participate in at least five individual or Activity Therapy group sessions per week.
[2021-07-05 15:44] VITALS: BP 124/70
[2021-07-05] MEDS: MIRTAZAPINE 15 MG TABLET PO SCH (20:47)
--- NOTE | 2021-07-05 22:05 | PDOC ---
Exam Note: Donte Note: Please also refer to the separate dictated note~for this date of service dictated separately.~Patient seen individually. Discussed the patient with Nursing staff reviewed the chart.~Reviewed interim history and current functioning. Reviewed vital signs,~Labs/ Radiology~and current medications noted below. Continue current treatment with the changes noted in the dictated addendum note Assessment: Vital Signs/I&O: Vital Signs Date Time Temp Pulse Resp B/P (MAP) Pulse Ox O2 Delivery O2 Flow Rate FiO2 07/05/21 15:44 97.7 87 20 124/70 (88) 100 Room Air I & O 07/04/21 07/04/21 07/05/21 14:00 22:00 06:00 Intake Total 1320 ml Balance 1320 ml Labs: Laboratory Tests Test 07/05/21 07:34 07/05/21 20:00 Glucose (Fingerstick) 237 mg/dL (70-99) H 164 mg/dL (70-99) H Current Medications: Meds: Laboratory Tests Test 07/05/21 07:34 07/05/21 20:00 Glucose (Fingerstick) 237 mg/dL 164 mg/dL Current Medications Medications (Trade) Dose Ordered Sig/Leonides Route PRN Reason Start Time Stop Time Status Last Admin Dose Admin Acetaminophen (Tylenol) 650 mg PRN Q6HRS PRN PO MILD PAIN / TEMP > 100.3'F 07/03/21 16:30 Cancel Multi-Ingredient Ointment (Analgesic [place]) 1 swatih PRN QID PRN TP MUSCLE PAIN 07/03/21 16:30 Al Hydroxide/Mg Hydroxide (Mylanta Plus Xs) 15 ml PRN AFTMEALHC PRN PO DYSPEPSIA 07/03/21 16:30 Magnesium Hydroxide (Milk Of Magnesia) 2,400 mg PRN QHS PRN PO 2ND CHOICE CONSTIPATION 07/03/21 16:30 Acetaminophen (Tylenol) 650 mg PRN Q4HRS PRN PO MILD PAIN / TEMP > 100.3'F 07/03/21 18:45 Aspirin (Aspirin Enteric Coated) 81 mg DAILY PO 07/04/21 09:00 07/05/21 08:23 Bisacodyl (Dulcolax Tab) 5 mg PRN DAILY PRN PO 3RD CHOICE CONSTIPATION 07/03/21 18:45 Clonazepam (KlonoPIN) 0.5 mg TID PO 07/03/21 21:00 07/05/21 20:47 Diclofenac Sodium (Voltaren) 1 swathi PRN Q6HRS PRN TP PAIN 07/03/21 18:45 Divalproex Sodium (Depakote Sprinkles) 250 mg BID PO 07/03/21 21:00 07/05/21 20:47 Furosemide (Lasix) 40 mg DAILY PO 07/04/21 09:00 07/05/21 08:23 Ibuprofen (Motrin) 400 mg PRN Q6HRS PRN PO MILD PAIN / TEMP > 100.3'F 07/03/21 18:45 Albuterol/ Ipratropium (Combivent Respimat 20-100 Mcg) 1 puff PRN BID PRN INH SHORTNESS OF BREATH 07/03/21 19:15 Levothyroxine Sodium (Synthroid) 175 mcg DAILY06 PO 07/04/21 06:00 07/05/21 06:00 Al Hydroxide/Mg Hydroxide (Mylanta Plus Xs) 15 ml PRN AFTMEALHC PRN PO DYSPEPSIA 07/03/21 18:45 UNV Magnesium Oxide (Magnesium Oxide) 400 mg DAILY PO 07/04/21 09:00 07/05/21 08:30 Multi-Ingredient Ointment (Analgesic [place]) 1 swathi PRN QID PRN TP MUSCLE PAIN 07/03/21 18:45 UNV Mirtazapine (Remeron) 15 mg QHS PO 07/03/21 21:00 07/05/21 20:47 Risperidone (RisperDAL CONSTA) 25 mg Q2WKS IM 07/05/21 09:00 07/05/21 08:27 Spironolactone (Aldactone) 25 mg DAILY PO 07/04/21 09:00 07/05/21 08:25 Trazodone HCl (Desyrel) 25 mg DAILY PO 07/04/21 09:00 07/05/21 08:24 Trazodone HCl (Desyrel) 50 mg BID@1300,1700 PO 07/04/21 13:00 07/05/21 17:20 Betamethasone Dipropion Augmented (Betamethasone Dp Aug 0.05% Cream) 1 swathi PRN BID PRN TP RASH 07/03/21 19:15 Non-Formulary Medication (Eucalyptus Oil/ Menthol/Camphor (Vicks Vaporub Ointment)) 50 gm QHS TP 07/03/21 21:00 UNV Guaifenesin (Robitussin Dm) 10 ml PRN Q4HRS PRN PO COUGH 07/03/21 19:15 Insulin Human Lispro (HumaLOG) 28 units TIDWMEALS SQ 07/04/21 08:00 07/05/21 17:22 Insulin Glargine (Lantus Syringe) 40 unit BID SQ 07/03/21 21:00 07/05/21 20:49 Non-Formulary Medication (Magnesium Hydroxide (Milk Of Magnesia)) 2,400 mg PRN QHS PRN PO CONSTIPATION 07/03/21 18:45 UNV Pantoprazole Sodium (Protonix) 40 mg DAILY PO 07/04/21 09:00 07/05/21 08:24 Oxybutynin Chloride (Ditropan) 5 mg DAILY PO 07/04/21 09:00 07/05/21 08:23 Polyethylene Glycol (miraLAX) 17 gm PRN Q72HRS PRN PO 1ST CHOICE CONSTIPATION 07/03/21 19:15 Potassium Chloride (Klor-Con) 10 meq DAILY PO 07/04/21 09:00 07/04/21 08:42 DC Propranolol HCl (Inderal) 40 mg DAILY PO 07/04/21 09:00 07/05/21 08:26 Vitamin D (Vitamin D3) 2,000 unit DAILY PO 07/04/21 09:00 07/05/21 08:26 Potassium Chloride (Klor-Con) 20 meq BID PO 07/05/21 09:00 07/05/21 20:47 Potassium Chloride (Klor-Con) 40 meq 1X ONCE PO 07/04/21 08:45 07/04/21 08:46 DC 07/04/21 08:59 Potassium Chloride (Klor-Con) 40 meq 1X ONCE PO 07/04/21 09:45 07/04/21 09:46 DC 07/04/21 10:02 Potassium Chloride (Klor-Con) 40 meq 1X ONCE PO 07/04/21 10:45 07/04/21 10:46 DC 07/04/21 10:45 Current Medications Medications (Trade) Dose Ordered Sig/Leonides Route PRN Reason Start Time Stop Time Status Last Admin Dose Admin Risperidone (RisperDAL CONSTA) 25 mg Q2WKS IM 07/05/21 09:00 07/05/21 08:27 Potassium Chloride (Klor-Con) 20 meq BID PO 07/05/21 09:00 07/05/21 20:47 I have reviewed the current psychotropics carefully including drug interactions. Risk benefit ratio favors no change other than as noted in my dictated progress note. Diagnosis: Problems: (1) Schizoaffective disorder, bipolar type (2) Anxiety disorder, unspecified (3) Impulse disorder, unspecified (4) Bipolar disorder, curr episode mixed, severe, with psychotic features RAJIV VELAZQUEZ MD Jul 05, 2021 22:05
--- NOTE | 2021-07-05 23:58 | NUR ---
Nursing note Pt pleasant and cooperative, takes po meds, no agitation or other complaints.
[2021-07-06 04:29] VITALS: BP 140/81
[2021-07-06] MEDS: LEVOTHYROXINE 175 MCG TABLET PO SCH (06:00)
[2021-07-06 06:58] LABS: BASO # 0.1 x10^3/uL (0.0-0.2); BASO % 1 % (0-3); EOS # 0.7 x10^3/uL (0.0-0.7); EOS % 10 % (0-3); HEMOGLOBIN 12.1 g/dL (12.0-15.5); LYMPH # 2.4 x10^3/uL (1.0-4.8); LYMPH % 33 % (24-48); MEAN CORPUSCULAR HEMOGLOBIN 28 pg (25-35); MEAN CORPUSCULAR HGB CONC 34 g/dL (31-37); MEAN CORPUSCULAR VOLUME 84 fL (79-100); MONO # 0.9 x10^3/uL (0.0-1.1); MONO % 12 % (0-9); NEUT # 3.2 x10^3uL (1.8-7.7); NEUT % 45 % (31-73); PLATELET COUNT 179 x10^3/uL (140-400); RED BLOOD COUNT 4.29 x10^6/uL (3.50-5.40); RED CELL DISTRIBUTION WIDTH 14.8 % (11.5-14.5); WHITE BLOOD COUNT 7.3 x10^3/uL (4.0-11.0)
[2021-07-06 07:12] LABS: ALBUMIN 2.4 g/dL (3.4-5.0); ALBUMIN/GLOBULIN RATIO 0.6 (1.0-1.7); ALK PHOS 131 U/L (46-116); ALT (SGPT) 35 U/L (14-59); ANION GAP 8 (6-14); AST (SGOT) 66 U/L (15-37); BLOOD UREA NITROGEN 14 mg/dL (7-20); BUN/CREATININE RATIO 23 (6-20); CALCIUM 8.4 mg/dL (8.5-10.1); CARBON DIOXIDE 27 mmol/L (21-32); CHLORIDE 103 mmol/L (98-107); CREATININE 0.6 mg/dL (0.6-1.0); GFR 100.3; GLUCOSE 140 mg/dL (70-99); POTASSIUM 3.3 mmol/L (3.5-5.1); SODIUM 138 mmol/L (136-145); TOTAL BILIRUBIN 0.3 mg/dL (0.2-1.0); TOTAL PROTEIN 6.2 g/dL (6.4-8.2)
[2021-07-06 07:19] LABS: VAL ACID 29 mcg/mL (50-100)
[2021-07-06] MEDS: ASPIRIN ENTERIC COATED 81 MG TABLET.DR. PO SCH (08:34)
[2021-07-06] MEDS: FUROSEMIDE 40 MG TABLET PO SCH (08:34)
[2021-07-06] MEDS: CHOLECALCIFEROL (VITAMIN D3) 1,000 UNIT TABLET PO SCH (08:34)
[2021-07-06] MEDS: clonazePAM 0.5 MG TABLET PO SCH ×3 (08:35→20:18)
[2021-07-06] MEDS: traZODone 50 MG TABLET. PO SCH ×3 (08:35→17:28)
[2021-07-06] MEDS: DIVALPROEX 125 MG CAP.SPRINK PO SCH ×2 (08:35→20:18)
[2021-07-06] MEDS: OXYBUTYNIN CHLORIDE 5 MG TABLET PO SCH (08:35)
[2021-07-06] MEDS: SPIRONOLACTONE 25 MG TABLET PO SCH (08:35)
[2021-07-06] MEDS: PANTOPRAZOLE 40 MG TABLET. PO SCH (08:35)
[2021-07-06] MEDS: POTASSIUM CHLORIDE 10 MEQ TABLET.ER. PO SCH ×2 (08:36→20:19)
[2021-07-06] MEDS: PROPRANOLOL 20 MG TABLET. PO SCH (08:36)
[2021-07-06] MEDS: MAGNESIUM OXIDE 400 MG TABLET PO SCH (08:36)
[2021-07-06] MEDS: INSULIN LISPRO 300 UNITS/3 ML VIAL. SQ SCH ×3 (10:07→17:30)
[2021-07-06] MEDS: INSULIN GLARGINE SYRINGE. SQ SCH ×2 (10:08→20:21)
--- NOTE | 2021-07-06 10:17 | NUR ---
Pt appropriate and med compliant this morning. Appetite appears to be adequate during breakfast. Absent of SI/HI/VH/AH/delusions/pain. She has moments of being confused and forgetful, such as believing this nurse already gave her insulin earlier in the morning when I in fact did not. After breakfast she retired back to bed to nap some. Plan of care continues, will pass to next shift.
[2021-07-06 15:04] VITALS: BP 134/81
[2021-07-06] MEDS: MIRTAZAPINE 15 MG TABLET PO SCH (20:19)
--- NOTE | 2021-07-06 22:16 | PDOC ---
Exam Note: Donte Note: Please also refer to the separate dictated note~for this date of service dictated separately.~Patient seen individually. Discussed the patient with Nursing staff reviewed the chart.~Reviewed interim history and current functioning. Reviewed vital signs,~Labs/ Radiology~and current medications noted below. Continue current treatment with the changes noted in the dictated addendum note Assessment: Vital Signs/I&O: Vital Signs Date Time Temp Pulse Resp B/P (MAP) Pulse Ox O2 Delivery O2 Flow Rate FiO2 07/06/21 15:04 97.9 78 16 134/81 (98) 98 07/05/21 15:44 Room Air I & O 07/05/21 07/05/21 07/06/21 14:00 22:00 06:00 Intake Total 850 ml 240 ml 240 ml Balance 850 ml 240 ml 240 ml Labs: Laboratory Tests Test 07/06/21 06:28 07/06/21 07:32 07/06/21 11:46 07/06/21 17:05 White Blood Count 7.3 x10^3/uL (4.0-11.0) Red Blood Count 4.29 x10^6/uL (3.50-5.40) Hemoglobin 12.1 g/dL (12.0-15.5) Hematocrit 36.0 % (36.0-47.0) Mean Corpuscular Volume 84 fL (79-100) Mean Corpuscular Hemoglobin 28 pg (25-35) Mean Corpuscular Hemoglobin Concent 34 g/dL (31-37) Red Cell Distribution Width 14.8 % (11.5-14.5) H Platelet Count 179 x10^3/uL (140-400) Neutrophils (%) (Auto) 45 % (31-73) Lymphocytes (%) (Auto) 33 % (24-48) Monocytes (%) (Auto) 12 % (0-9) H Eosinophils (%) (Auto) 10 % (0-3) H Basophils (%) (Auto) 1 % (0-3) Neutrophils # (Auto) 3.2 x10^3uL (1.8-7.7) Lymphocytes # (Auto) 2.4 x10^3/uL (1.0-4.8) Monocytes # (Auto) 0.9 x10^3/uL (0.0-1.1) Eosinophils # (Auto) 0.7 x10^3/uL (0.0-0.7) Basophils # (Auto) 0.1 x10^3/uL (0.0-0.2) Sodium Level 138 mmol/L (136-145) Potassium Level 3.3 mmol/L (3.5-5.1) L Chloride Level 103 mmol/L (98-107) Carbon Dioxide Level 27 mmol/L (21-32) Anion Gap 8 (6-14) Blood Urea Nitrogen 14 mg/dL (7-20) Creatinine 0.6 mg/dL (0.6-1.0) Estimated GFR (Cockcroft-Gault) 100.3 BUN/Creatinine Ratio 23 (6-20) H Glucose Level 140 mg/dL (70-99) H Calcium Level 8.4 mg/dL (8.5-10.1) L Total Bilirubin 0.3 mg/dL (0.2-1.0) Aspartate Amino Transferase (AST) 66 U/L (15-37) H Alanine Aminotransferase (ALT) 35 U/L (14-59) Alkaline Phosphatase 131 U/L (46-116) H Total Protein 6.2 g/dL (6.4-8.2) L Albumin 2.4 g/dL (3.4-5.0) L Albumin/Globulin Ratio 0.6 (1.0-1.7) L Valproic Acid Level 29 mcg/mL (50-100) L Valproic Acid Last Dose Date 07/05/21 Valproic Acid Last Dose Time 2100 Glucose (Fingerstick) 161 mg/dL (70-99) H 339 mg/dL (70-99) H 163 mg/dL (70-99) H Test 07/06/21 19:18 Glucose (Fingerstick) 198 mg/dL (70-99) H Current Medications: Meds: Laboratory Tests Test 07/06/21 06:28 07/06/21 07:32 07/06/21 11:46 07/06/21 17:05 White Blood Count 7.3 x10^3/uL Red Blood Count 4.29 x10^6/uL Hemoglobin 12.1 g/dL Hematocrit 36.0 % Mean Corpuscular Volume 84 fL Mean Corpuscular Hemoglobin 28 pg Mean Corpuscular Hemoglobin Concent 34 g/dL Red Cell Distribution Width 14.8 % Platelet Count 179 x10^3/uL Neutrophils (%) (Auto) 45 % Lymphocytes (%) (Auto) 33 % Monocytes (%) (Auto) 12 % Eosinophils (%) (Auto) 10 % Basophils (%) (Auto) 1 % Neutrophils # (Auto) 3.2 x10^3uL Lymphocytes # (Auto) 2.4 x10^3/uL Monocytes # (Auto) 0.9 x10^3/uL Eosinophils # (Auto) 0.7 x10^3/uL Basophils # (Auto) 0.1 x10^3/uL Sodium Level 138 mmol/L Potassium Level 3.3 mmol/L Chloride Level 103 mmol/L Carbon Dioxide Level 27 mmol/L Anion Gap 8 Blood Urea Nitrogen 14 mg/dL Creatinine 0.6 mg/dL Estimated GFR (Cockcroft-Gault) 100.3 BUN/Creatinine Ratio 23 Glucose Level 140 mg/dL Calcium Level 8.4 mg/dL Total Bilirubin 0.3 mg/dL Aspartate Amino Transf (AST/SGOT) 66 U/L Alanine Aminotransferase (ALT/SGPT) 35 U/L Alkaline Phosphatase 131 U/L Total Protein 6.2 g/dL Albumin 2.4 g/dL Albumin/Globulin Ratio 0.6 Valproic Acid (Depakene) Level 29 mcg/mL Valproic Acid Last Dose Date 07/05/21 Valproic Acid Last Dose Time 2100 Glucose (Fingerstick) 161 mg/dL 339 mg/dL 163 mg/dL Test 07/06/21 19:18 Glucose (Fingerstick) 198 mg/dL Current Medications Medications (Trade) Dose Ordered Sig/Leonides Route PRN Reason Start Time Stop Time Status Last Admin Dose Admin Acetaminophen (Tylenol) 650 mg PRN Q6HRS PRN PO MILD PAIN / TEMP > 100.3'F 07/03/21 16:30 Cancel Multi-Ingredient Ointment (Analgesic [place]) 1 swathi PRN QID PRN TP MUSCLE PAIN 07/03/21 16:30 Al Hydroxide/Mg Hydroxide (Mylanta Plus Xs) 15 ml PRN AFTMEALHC PRN PO DYSPEPSIA 07/03/21 16:30 Magnesium Hydroxide (Milk Of Magnesia) 2,400 mg PRN QHS PRN PO 2ND CHOICE CONSTIPATION 07/03/21 16:30 Acetaminophen (Tylenol) 650 mg PRN Q4HRS PRN PO MILD PAIN / TEMP > 100.3'F 07/03/21 18:45 Aspirin (Aspirin Enteric Coated) 81 mg DAILY PO 07/04/21 09:00 07/06/21 08:34 Bisacodyl (Dulcolax Tab) 5 mg PRN DAILY PRN PO 3RD CHOICE CONSTIPATION 07/03/21 18:45 Clonazepam (KlonoPIN) 0.5 mg TID PO 07/03/21 21:00 07/06/21 20:18 Diclofenac Sodium (Voltaren) 1 swathi PRN Q6HRS PRN TP PAIN 07/03/21 18:45 Divalproex Sodium (Depakote Sprinkles) 250 mg BID PO 07/03/21 21:00 07/06/21 20:18 Furosemide (Lasix) 40 mg DAILY PO 07/04/21 09:00 07/06/21 08:34 Ibuprofen (Motrin) 400 mg PRN Q6HRS PRN PO MILD PAIN / TEMP > 100.3'F 07/03/21 18:45 Albuterol/ Ipratropium (Combivent Respimat 20-100 Mcg) 1 puff PRN BID PRN INH SHORTNESS OF BREATH 07/03/21 19:15 Levothyroxine Sodium (Synthroid) 175 mcg DAILY06 PO 07/04/21 06:00 07/06/21 06:00 Al Hydroxide/Mg Hydroxide (Mylanta Plus Xs) 15 ml PRN AFTMEALHC PRN PO DYSPEPSIA 07/03/21 18:45 UNV Magnesium Oxide (Magnesium Oxide) 400 mg DAILY PO 07/04/21 09:00 07/06/21 08:36 Multi-Ingredient Ointment (Analgesic [place]) 1 swathi PRN QID PRN TP MUSCLE PAIN 07/03/21 18:45 UNV Mirtazapine (Remeron) 15 mg QHS PO 07/03/21 21:00 07/06/21 20:19 Risperidone (RisperDAL CONSTA) 25 mg Q2WKS IM 07/05/21 09:00 07/05/21 08:27 Spironolactone (Aldactone) 25 mg DAILY PO 07/04/21 09:00 07/06/21 08:35 Trazodone HCl (Desyrel) 25 mg DAILY PO 07/04/21 09:00 07/06/21 08:35 Trazodone HCl (Desyrel) 50 mg BID@1300,1700 PO 07/04/21 13:00 07/06/21 17:28 Betamethasone Dipropion Augmented (Betamethasone Dp Aug 0.05% Cream) 1 swathi PRN BID PRN TP RASH 07/03/21 19:15 Non-Formulary Medication (Eucalyptus Oil/ Menthol/Camphor (Vicks Vaporub Ointment)) 50 gm QHS TP 07/03/21 21:00 UNV Guaifenesin (Robitussin Dm) 10 ml PRN Q4HRS PRN PO COUGH 07/03/21 19:15 Insulin Human Lispro (HumaLOG) 28 units TIDWMEALS SQ 07/04/21 08:00 07/06/21 17:30 Insulin Glargine (Lantus Syringe) 40 unit BID SQ 07/03/21 21:00 07/06/21 20:21 Non-Formulary Medication (Magnesium Hydroxide (Milk Of Magnesia)) 2,400 mg PRN QHS PRN PO CONSTIPATION 07/03/21 18:45 UNV Pantoprazole Sodium (Protonix) 40 mg DAILY PO 07/04/21 09:00 07/06/21 08:35 Oxybutynin Chloride (Ditropan) 5 mg DAILY PO 07/04/21 09:00 07/06/21 08:35 Polyethylene Glycol (miraLAX) 17 gm PRN Q72HRS PRN PO 1ST CHOICE CONSTIPATION 07/03/21 19:15 Potassium Chloride (Klor-Con) 10 meq DAILY PO 07/04/21 09:00 07/04/21 08:42 DC Propranolol HCl (Inderal) 40 mg DAILY PO 07/04/21 09:00 07/06/21 08:36 Vitamin D (Vitamin D3) 2,000 unit DAILY PO 07/04/21 09:00 07/06/21 08:34 Potassium Chloride (Klor-Con) 20 meq BID PO 07/05/21 09:00 07/06/21 20:19 Potassium Chloride (Klor-Con) 40 meq 1X ONCE PO 07/04/21 08:45 07/04/21 08:46 DC 07/04/21 08:59 Potassium Chloride (Klor-Con) 40 meq 1X ONCE PO 07/04/21 09:45 07/04/21 09:46 DC 07/04/21 10:02 Potassium Chloride (Klor-Con) 40 meq 1X ONCE PO 07/04/21 10:45 07/04/21 10:46 DC 07/04/21 10:45 I have reviewed the current psychotropics carefully including drug interactions. Risk benefit ratio favors no change other than as noted in my dictated progress note. Diagnosis: Problems: (1) Schizoaffective disorder, bipolar type (2) Mild cognitive impairment (3) Anxiety disorder, unspecified (4) Impulse disorder, unspecified (5) Bipolar disorder, curr episode mixed, severe, with psychotic features RAJIV VELAZQUEZ MD Jul 06, 2021 22:16
--- NOTE | 2021-07-06 22:45 | CONS ---
DATE OF CONSULTATION: 07/06/2021 This is a consult for medical management of the patient. HISTORY OF PRESENT ILLNESS: The patient is a 65-year-old female patient who was admitted initially to [address] [place] [address], to be screened for coronavirus, there she was found to be in diabetic ketoacidosis. She was admitted to the ICU and treated with insulin drip and IV fluid, and her anion gap closed, and after she stabilized, [facility] was [facility] as the patient was referred [facility] from [facility] where she resides on account of an exacerbation of her schizoaffective disorder, bipolar type with psychotic features. The patient has been refusing her medication, irritable, agitated, verbally aggressive, swearing and screaming. She had failed outpatient psychiatric intervention resulting in admission to this unit. PAST MEDICAL HISTORY: Significant for type 2 diabetes mellitus, hyperlipidemia, hypothyroidism, mild cognitive deficit. PAST SURGICAL HISTORY: Unremarkable. FAMILY HISTORY: Noncontributory. SOCIAL HISTORY: She is a resident at [facility]. She does not smoke, drink alcohol or use recreational drugs. ALLERGIES: SHE IS ALLERGIC TO VITAMIN C, CLONIDINE, LACTULOSE, LITHIUM, MEPERIDINE, DEMEROL, ZYPREXA, AVOCADO AND STRAWBERRIES. MEDICATIONS: The patient is currently on the following medications - she is on potassium chloride 20 mEq twice a day, risperidone 25 mg intramuscular every 2 weeks; trazodone 50 mg twice a day; vitamin D 2000 units daily; propranolol 40 mg daily; oxybutynin chloride 5 mg daily; Protonix 40 mg once a day; trazodone 25 mg daily; spironolactone 25 mg once a day; magnesium oxide 400 mg daily; furosemide 40 mg daily; aspirin 81 mg once a day; Humalog insulin 28 units 3 times a day with meals; levothyroxine 175 mcg daily. She is on Lantus insulin 40 units twice a day, mirtazapine 15 mg at bedtime, divalproex 250 mg twice a day, clonazepam 0.5 mg 3 times a day, polyethylene glycol 17 grams every 72 hours, betamethasone dipropionate 1 application twice a day, albuterol and Atrovent 1 puff twice a day, ibuprofen 400 mg every 6 hours, diclofenac sodium-Voltaren gel 1 gram to apply topically every 6 hours; bisacodyl 5 mg tablet once a day, Tylenol 650 mg every 4 hours, magnesium hydroxide -Milk of Magnesia 30 mL p.o. daily p.r.n. for constipation, Mylanta 15 mL after meals and as needed. PHYSICAL EXAMINATION: GENERAL: On examining her, she looked well and was clearly in no apparent respiratory distress. There was no pallor, jaundice, cyanosis or thyromegaly. No jugular venous distention. No lower limb edema. VITAL SIGNS: Her heart rate was 83, blood pressure 140/81, temperature was 98.2, respiratory rate 20, and oxygen saturation was 97% on room air. HEAD, EYES, EARS, NOSE AND THROAT: Normocephalic, atraumatic. NECK: Supple. HEART: Normal first and second heart sounds, no gallop or murmur. CHEST: Clear to auscultation, no crepitation or rhonchi. ABDOMEN: Distended, soft, nontender. NEUROLOGIC: She was grossly intact. LABORATORY DATA: Showed a white cell count of 7300, hemoglobin 12, hematocrit 36, MCV 84 and platelet count of 179,000. Her chemistry as of this morning showed a serum sodium of 138, potassium 3.3, chloride 103, bicarbonate 27, anion gap of 8, BUN 14, creatinine 0.6. Estimated GFR was 100 mL per minute. Her glucose 140, calcium was 8.4, total bilirubin and ALT were normal. AST and alkaline phosphatase slightly elevated. Total protein 6.2, albumin was 2.4. Her valproic acid was only 29 mcg/mL. ASSESSMENT AND PLAN: In summary, this is a 65-year-old female patient, a resident at [facility], who was admitted on account of exacerbation of her schizoaffective disorder, bipolar type with psychotic features. She has been refusing her medication; irritable, agitated, verbally aggressive, swearing and screaming. She apparently has failed outpatient psychiatric intervention and was admitted to this facility for inpatient psychiatric stabilization. Medically, she has type 2 diabetes mellitus, hyperlipidemia, hypothyroidism. She also has gastroesophageal reflux disease and overactive bladder. Her blood sugar seems to be reasonable, although not optimally controlled. Her thyroid function including TSH, T3, total T3 and total T4 are all within normal range. Her vitamin B12 was normal at 724 pg/mL and her 25-hydroxy vitamin D3 was low at 24.5 ng/mL. My plan is to continue with her current regimen particularly insulin including Humalog and Lantus; I will increase her vitamin D. She is currently on vitamin D at [address] once a day. All in all, this lady seemed to be stable medically. She did have an episode of DKA; therefore, she was admitted to ICU and treated accordingly. Thank you, Dr. Gallagher, for allowing me to participate in the care of this patient. JENNA DR: Rain TID: [id number]
--- NOTE | 2021-07-07 | NUR ---
Nursing Note Pt asking for roast beef this pm. like asking me if I had roast beef in my med drawer on my computer on wheels. I informed her that sorry, no roast beef would be available at this time. Pt grins at me as if she is being sarcastic in asking for roast beef. Med compliant and cooperative with assessment.
[2021-07-07] MEDS: LEVOTHYROXINE 175 MCG TABLET PO SCH (05:31)
[2021-07-07 06:13] VITALS: BP 132/84
[2021-07-07] MEDS: PROPRANOLOL 20 MG TABLET. PO SCH (08:49)
[2021-07-07] MEDS: DIVALPROEX 125 MG CAP.SPRINK PO SCH ×2 (08:49→20:28)
[2021-07-07] MEDS: CHOLECALCIFEROL (VITAMIN D3) 1,000 UNIT TABLET PO SCH (08:50)
[2021-07-07] MEDS: INSULIN LISPRO 300 UNITS/3 ML VIAL. SQ SCH ×3 (08:51→17:19)
[2021-07-07] MEDS: ASPIRIN ENTERIC COATED 81 MG TABLET.DR. PO SCH (08:52)
[2021-07-07] MEDS: PANTOPRAZOLE 40 MG TABLET. PO SCH (08:52)
[2021-07-07] MEDS: OXYBUTYNIN CHLORIDE 5 MG TABLET PO SCH (08:53)
[2021-07-07] MEDS: clonazePAM 0.5 MG TABLET PO SCH ×3 (08:53→20:30)
[2021-07-07] MEDS: FUROSEMIDE 40 MG TABLET PO SCH (08:53)
[2021-07-07] MEDS: traZODone 50 MG TABLET. PO SCH ×3 (08:53→17:19)
[2021-07-07] MEDS: SPIRONOLACTONE 25 MG TABLET PO SCH (08:53)
[2021-07-07] MEDS: MAGNESIUM OXIDE 400 MG TABLET PO SCH (08:54)
[2021-07-07] MEDS: POTASSIUM CHLORIDE 10 MEQ TABLET.ER. PO SCH ×2 (08:54→20:30)
[2021-07-07] MEDS: INSULIN GLARGINE SYRINGE. SQ SCH ×2 (09:22→20:31)
--- NOTE | 2021-07-07 10:37 | NUR ---
RN DAY SHIFT NOTE: PT PRESENTS WITH PLEASANT MOOD/AFFECT. PT WAS MEDICATION COMPLIANT. PT IS APPROACHABLE AND ENGAGES SOCIALLY WITH STAFF. PT IS NOTED TO SPEND TIME RESTING IN HER CHAIR IN THE HALLWAY. PT HAS A FAIR APPETITE. PT SLEPT 7.75 HOURS LAST NIGHT. PT'S VITAL SIGNS ARE WNL. PT HAS DISPLAYED APPROPRIATE BEHAVIOR AND FOLLOWS RULES/ROUTINES ON THE UNIT. WILL CONTINUE TO MONITOR.
[2021-07-07 15:53] VITALS: BP 120/79
[2021-07-07] MEDS: MIRTAZAPINE 15 MG TABLET PO SCH (20:30)
--- NOTE | 2021-07-07 22:02 | PDOC ---
Exam Note: Donte Note: Please also refer to the separate dictated note~for this date of service dictated separately.~Patient seen individually. Discussed the patient with Nursing staff reviewed the chart.~Reviewed interim history and current functioning. Reviewed vital signs,~Labs/ Radiology~and current medications noted below. Continue current treatment with the changes noted in the dictated addendum note Assessment: Vital Signs/I&O: Vital Signs Date Time Temp Pulse Resp B/P (MAP) Pulse Ox O2 Delivery O2 Flow Rate FiO2 07/07/21 15:53 97.7 81 16 120/79 (93) 97 07/05/21 15:44 Room Air I & O 07/06/21 07/06/21 07/07/21 15:00 23:00 07:00 Intake Total 1140 ml 600 ml Balance 1140 ml 600 ml Labs: Laboratory Tests Test 07/07/21 07:37 07/07/21 11:55 07/07/21 16:56 07/07/21 19:37 Glucose (Fingerstick) 122 mg/dL (70-99) H 207 mg/dL (70-99) H 119 mg/dL (70-99) H 205 mg/dL (70-99) H Current Medications: Meds: Laboratory Tests Test 07/07/21 07:37 07/07/21 11:55 07/07/21 16:56 07/07/21 19:37 Glucose (Fingerstick) 122 mg/dL 207 mg/dL 119 mg/dL 205 mg/dL Current Medications Medications (Trade) Dose Ordered Sig/Leonides Route PRN Reason Start Time Stop Time Status Last Admin Dose Admin Acetaminophen (Tylenol) 650 mg PRN Q6HRS PRN PO MILD PAIN / TEMP > 100.3'F 07/03/21 16:30 Cancel Multi-Ingredient Ointment (Analgesic [place]) 1 swathi PRN QID PRN TP MUSCLE PAIN 07/03/21 16:30 Al Hydroxide/Mg Hydroxide (Mylanta Plus Xs) 15 ml PRN AFTMEALHC PRN PO DYSPEPSIA 07/03/21 16:30 Magnesium Hydroxide (Milk Of Magnesia) 2,400 mg PRN QHS PRN PO 2ND CHOICE CONSTIPATION 07/03/21 16:30 Acetaminophen (Tylenol) 650 mg PRN Q4HRS PRN PO MILD PAIN / TEMP > 100.3'F 07/03/21 18:45 Aspirin (Aspirin Enteric Coated) 81 mg DAILY PO 07/04/21 09:00 07/07/21 08:52 Bisacodyl (Dulcolax Tab) 5 mg PRN DAILY PRN PO 3RD CHOICE CONSTIPATION 07/03/21 18:45 Clonazepam (KlonoPIN) 0.5 mg TID PO 07/03/21 21:00 07/07/21 20:30 Diclofenac Sodium (Voltaren) 1 swathi PRN Q6HRS PRN TP PAIN 07/03/21 18:45 Divalproex Sodium (Depakote Sprinkles) 250 mg BID PO 07/03/21 21:00 07/06/21 23:37 DC 07/06/21 20:18 Furosemide (Lasix) 40 mg DAILY PO 07/04/21 09:00 07/07/21 08:53 Ibuprofen (Motrin) 400 mg PRN Q6HRS PRN PO MILD PAIN / TEMP > 100.3'F 07/03/21 18:45 Albuterol/ Ipratropium (Combivent Respimat 20-100 Mcg) 1 puff PRN BID PRN INH SHORTNESS OF BREATH 07/03/21 19:15 Levothyroxine Sodium (Synthroid) 175 mcg DAILY06 PO 07/04/21 06:00 07/07/21 05:31 Al Hydroxide/Mg Hydroxide (Mylanta Plus Xs) 15 ml PRN AFTMEALHC PRN PO DYSPEPSIA 07/03/21 18:45 UNV Magnesium Oxide (Magnesium Oxide) 400 mg DAILY PO 07/04/21 09:00 07/07/21 08:54 Multi-Ingredient Ointment (Analgesic [place]) 1 swathi PRN QID PRN TP MUSCLE PAIN 07/03/21 18:45 UNV Mirtazapine (Remeron) 15 mg QHS PO 07/03/21 21:00 07/07/21 20:30 Risperidone (RisperDAL CONSTA) 25 mg Q2WKS IM 07/05/21 09:00 07/05/21 08:27 Spironolactone (Aldactone) 25 mg DAILY PO 07/04/21 09:00 07/07/21 08:53 Trazodone HCl (Desyrel) 25 mg DAILY PO 07/04/21 09:00 07/07/21 08:53 Trazodone HCl (Desyrel) 50 mg BID@1300,1700 PO 07/04/21 13:00 07/07/21 17:19 Betamethasone Dipropion Augmented (Betamethasone Dp Aug 0.05% Cream) 1 swathi PRN BID PRN TP RASH 07/03/21 19:15 Non-Formulary Medication (Eucalyptus Oil/ Menthol/Camphor (Vicks Vaporub Ointment)) 50 gm QHS TP 07/03/21 21:00 UNV Guaifenesin (Robitussin Dm) 10 ml PRN Q4HRS PRN PO COUGH 07/03/21 19:15 Insulin Human Lispro (HumaLOG) 28 units TIDWMEALS SQ 07/04/21 08:00 07/07/21 17:19 Insulin Glargine (Lantus Syringe) 40 unit BID SQ 07/03/21 21:00 07/07/21 20:31 Non-Formulary Medication (Magnesium Hydroxide (Milk Of Magnesia)) 2,400 mg PRN QHS PRN PO CONSTIPATION 07/03/21 18:45 UNV Pantoprazole Sodium (Protonix) 40 mg DAILY PO 07/04/21 09:00 07/07/21 08:52 Oxybutynin Chloride (Ditropan) 5 mg DAILY PO 07/04/21 09:00 07/07/21 08:53 Polyethylene Glycol (miraLAX) 17 gm PRN Q72HRS PRN PO 1ST CHOICE CONSTIPATION 07/03/21 19:15 Potassium Chloride (Klor-Con) 10 meq DAILY PO 07/04/21 09:00 07/04/21 08:42 DC Propranolol HCl (Inderal) 40 mg DAILY PO 07/04/21 09:00 07/07/21 08:49 Vitamin D (Vitamin D3) 2,000 unit DAILY PO 07/04/21 09:00 07/07/21 08:50 Potassium Chloride (Klor-Con) 20 meq BID PO 07/05/21 09:00 07/07/21 20:30 Potassium Chloride (Klor-Con) 40 meq 1X ONCE PO 07/04/21 08:45 07/04/21 08:46 DC 07/04/21 08:59 Potassium Chloride (Klor-Con) 40 meq 1X ONCE PO 07/04/21 09:45 07/04/21 09:46 DC 07/04/21 10:02 Potassium Chloride (Klor-Con) 40 meq 1X ONCE PO 07/04/21 10:45 07/04/21 10:46 DC 07/04/21 10:45 Divalproex Sodium (Depakote Sprinkles) 500 mg BID PO 07/07/21 09:00 07/07/21 20:28 Current Medications Medications (Trade) Dose Ordered Sig/Leonides Route PRN Reason Start Time Stop Time Status Last Admin Dose Admin Divalproex Sodium (Depakote Sprinkles) 500 mg BID PO 07/07/21 09:00 07/07/21 20:28 I have reviewed the current psychotropics carefully including drug interactions. Risk benefit ratio favors no change other than as noted in my dictated progress note. Diagnosis: Problems: (1) Schizoaffective disorder, bipolar type (2) Anxiety disorder, unspecified (3) Impulse disorder, unspecified (4) Bipolar disorder, curr episode mixed, severe, with psychotic features RAJVI VELAZQUEZ MD Jul 07, 2021 22:02
--- NOTE | 2021-07-08 00:03 | NUR ---
Pt withdrawn to room, lying in bed when approached. Pt calm with a flat affect, and appropriate during encounter. Pt cooperative with assessment, compliant with medications administered whole and insulin given without difficulty. No agitation, aggression, or disruptive behaviors thus far this shift.
[2021-07-08] MEDS: LEVOTHYROXINE 175 MCG TABLET PO SCH (05:14)
[2021-07-08 05:41] VITALS: BP 132/76
--- NOTE | 2021-07-08 06:44 | PDOC ---
Exam Note: Donte Note: This note is a late entry for 07/05/2021 covers elements not covered in my initial note. Subjective: The patient was seen face to face in the evening of 07/05/2021 with Kylie COPELAND, discussed and reviewed the chart. The patient slept 7 hours previous night. She remains somewhat paranoid, has a rather unnerving stare per nursing report. We will check valproic acid level in the morning. Review of Systems: No CV, , pulmonary, eye, ENT system symptoms on review. Mental Status Exam: The patient is oriented reasonably. Speech has some latency, coherent. Abstraction fair. Computation impaired. Language function intact. Attention span short. Mood and affect withdrawn. Laboratory Data: Reviewed. Impression: Schizo-affective disorder bipolar type mixed with psychotic features. Anxiety disorder unspecified. Impulse control disorder unspecified. Plan: Continue current psychotropics. Assessment: Vital Signs/I&O: Vital Signs Date Time Temp Pulse Resp B/P (MAP) Pulse Ox O2 Delivery O2 Flow Rate FiO2 07/08/21 05:41 99.9 98 18 132/76 (94) 92 Room Air I & O 07/07/21 07/07/21 07/08/21 15:00 23:00 07:00 Intake Total 1140 ml 660 ml Balance 1140 ml 660 ml Labs: Laboratory Tests Test 07/07/21 07:37 07/07/21 11:55 07/07/21 16:56 07/07/21 19:37 Glucose (Fingerstick) 122 mg/dL (70-99) H 207 mg/dL (70-99) H 119 mg/dL (70-99) H 205 mg/dL (70-99) H Current Medications: Meds: Laboratory Tests Test 07/07/21 07:37 07/07/21 11:55 07/07/21 16:56 07/07/21 19:37 Glucose (Fingerstick) 122 mg/dL 207 mg/dL 119 mg/dL 205 mg/dL Current Medications Medications (Trade) Dose Ordered Sig/Leonides Route PRN Reason Start Time Stop Time Status Last Admin Dose Admin Acetaminophen (Tylenol) 650 mg PRN Q6HRS PRN PO MILD PAIN / TEMP > 100.3'F 07/03/21 16:30 Cancel Multi-Ingredient Ointment (Analgesic [place]) 1 swathi PRN QID PRN TP MUSCLE PAIN 07/03/21 16:30 Al Hydroxide/Mg Hydroxide (Mylanta Plus Xs) 15 ml PRN AFTMEALHC PRN PO DYSPEPSIA 07/03/21 16:30 Magnesium Hydroxide (Milk Of Magnesia) 2,400 mg PRN QHS PRN PO 2ND CHOICE CONSTIPATION 07/03/21 16:30 Acetaminophen (Tylenol) 650 mg PRN Q4HRS PRN PO MILD PAIN / TEMP > 100.3'F 07/03/21 18:45 Aspirin (Aspirin Enteric Coated) 81 mg DAILY PO 07/04/21 09:00 07/07/21 08:52 Bisacodyl (Dulcolax Tab) 5 mg PRN DAILY PRN PO 3RD CHOICE CONSTIPATION 07/03/21 18:45 Clonazepam (KlonoPIN) 0.5 mg TID PO 07/03/21 21:00 07/07/21 20:30 Diclofenac Sodium (Voltaren) 1 swathi PRN Q6HRS PRN TP PAIN 07/03/21 18:45 Divalproex Sodium (Depakote Sprinkles) 250 mg BID PO 07/03/21 21:00 07/06/21 23:37 DC 07/06/21 20:18 Furosemide (Lasix) 40 mg DAILY PO 07/04/21 09:00 07/07/21 08:53 Ibuprofen (Motrin) 400 mg PRN Q6HRS PRN PO MILD PAIN / TEMP > 100.3'F 07/03/21 18:45 Albuterol/ Ipratropium (Combivent Respimat 20-100 Mcg) 1 puff PRN BID PRN INH SHORTNESS OF BREATH 07/03/21 19:15 Levothyroxine Sodium (Synthroid) 175 mcg DAILY06 PO 07/04/21 06:00 07/08/21 05:14 Al Hydroxide/Mg Hydroxide (Mylanta Plus Xs) 15 ml PRN AFTMEALHC PRN PO DYSPEPSIA 07/03/21 18:45 UNV Magnesium Oxide (Magnesium Oxide) 400 mg DAILY PO 07/04/21 09:00 07/07/21 08:54 Multi-Ingredient Ointment (Analgesic [place]) 1 swathi PRN QID PRN TP MUSCLE PAIN 07/03/21 18:45 UNV Mirtazapine (Remeron) 15 mg QHS PO 07/03/21 21:00 07/07/21 20:30 Risperidone (RisperDAL CONSTA) 25 mg Q2WKS IM 07/05/21 09:00 07/05/21 08:27 Spironolactone (Aldactone) 25 mg DAILY PO 07/04/21 09:00 07/07/21 08:53 Trazodone HCl (Desyrel) 25 mg DAILY PO 07/04/21 09:00 07/07/21 08:53 Trazodone HCl (Desyrel) 50 mg BID@1300,1700 PO 07/04/21 13:00 07/07/21 17:19 Betamethasone Dipropion Augmented (Betamethasone Dp Aug 0.05% Cream) 1 swathi PRN BID PRN TP RASH 07/03/21 19:15 Non-Formulary Medication (Eucalyptus Oil/ Menthol/Camphor (Vicks Vaporub Ointment)) 50 gm QHS TP 07/03/21 21:00 UNV Guaifenesin (Robitussin Dm) 10 ml PRN Q4HRS PRN PO COUGH 07/03/21 19:15 Insulin Human Lispro (HumaLOG) 28 units TIDWMEALS SQ 07/04/21 08:00 07/07/21 17:19 Insulin Glargine (Lantus Syringe) 40 unit BID SQ 07/03/21 21:00 07/07/21 20:31 Non-Formulary Medication (Magnesium Hydroxide (Milk Of Magnesia)) 2,400 mg PRN QHS PRN PO CONSTIPATION 07/03/21 18:45 UNV Pantoprazole Sodium (Protonix) 40 mg DAILY PO 07/04/21 09:00 07/07/21 08:52 Oxybutynin Chloride (Ditropan) 5 mg DAILY PO 07/04/21 09:00 07/07/21 08:53 Polyethylene Glycol (miraLAX) 17 gm PRN Q72HRS PRN PO 1ST CHOICE CONSTIPATION 07/03/21 19:15 Potassium Chloride (Klor-Con) 10 meq DAILY PO 07/04/21 09:00 07/04/21 08:42 DC Propranolol HCl (Inderal) 40 mg DAILY PO 07/04/21 09:00 07/07/21 08:49 Vitamin D (Vitamin D3) 2,000 unit DAILY PO 07/04/21 09:00 07/07/21 08:50 Potassium Chloride (Klor-Con) 20 meq BID PO 07/05/21 09:00 07/07/21 20:30 Potassium Chloride (Klor-Con) 40 meq 1X ONCE PO 07/04/21 08:45 07/04/21 08:46 DC 07/04/21 08:59 Potassium Chloride (Klor-Con) 40 meq 1X ONCE PO 07/04/21 09:45 07/04/21 09:46 DC 07/04/21 10:02 Potassium Chloride (Klor-Con) 40 meq 1X ONCE PO 07/04/21 10:45 07/04/21 10:46 DC 07/04/21 10:45 Divalproex Sodium (Depakote Sprinkles) 500 mg BID PO 07/07/21 09:00 07/07/21 20:28 Current Medications Medications (Trade) Dose Ordered Sig/Leonides Route PRN Reason Start Time Stop Time Status Last Admin Dose Admin Divalproex Sodium (Depakote Sprinkles) 500 mg BID PO 07/07/21 09:00 07/07/21 20:28 I have reviewed the current psychotropics carefully including drug interactions. Risk benefit ratio favors no change other than as noted in my dictated progress note. Diagnosis: Problems: (1) Intellectual disability (2) Schizoaffective disorder, bipolar type (3) Mild cognitive impairment (4) Anxiety disorder, unspecified (5) Impulse disorder, unspecified (6) Bipolar disorder, curr episode mixed, severe, with psychotic features RAJIV VELAZQUEZ MD Jul 08, 2021 06:44
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
[2021-07-08 06:57] LABS: CALCIUM 8.4 mg/dL (8.5-10.1); CREATININE 0.7 mg/dL (0.6-1.0); POTASSIUM 3.4 mmol/L (3.5-5.1)
[2021-07-08] MEDS: SPIRONOLACTONE 25 MG TABLET PO SCH (08:15)
[2021-07-08] MEDS: PROPRANOLOL 20 MG TABLET. PO SCH (08:16)
[2021-07-08] MEDS: ASPIRIN ENTERIC COATED 81 MG TABLET.DR. PO SCH (08:16)
[2021-07-08] MEDS: CHOLECALCIFEROL (VITAMIN D3) 1,000 UNIT TABLET PO SCH (08:16)
[2021-07-08] MEDS: clonazePAM 0.5 MG TABLET PO SCH ×3 (08:17→20:51)
[2021-07-08] MEDS: DIVALPROEX 125 MG CAP.SPRINK PO SCH ×2 (08:17→20:51)
[2021-07-08] MEDS: PANTOPRAZOLE 40 MG TABLET. PO SCH (08:19)
[2021-07-08] MEDS: traZODone 50 MG TABLET. PO SCH ×3 (08:19→17:30)
[2021-07-08] MEDS: FUROSEMIDE 40 MG TABLET PO SCH (08:19)
[2021-07-08] MEDS: OXYBUTYNIN CHLORIDE 5 MG TABLET PO SCH (08:19)
[2021-07-08] MEDS: POTASSIUM CHLORIDE 10 MEQ TABLET.ER. PO SCH ×2 (08:20→20:51)
[2021-07-08] MEDS: MAGNESIUM OXIDE 400 MG TABLET PO SCH (08:20)
[2021-07-08] MEDS: INSULIN LISPRO 300 UNITS/3 ML VIAL. SQ SCH ×3 (08:22→17:29)
[2021-07-08] MEDS: INSULIN GLARGINE SYRINGE. SQ SCH ×2 (08:33→20:51)
--- NOTE | 2021-07-08 10:37 | NUR ---
RN DAY SHIFT NOTE: PT PRESENTS WITH FLAT MOOD/AFFECT. PT WAS MEDICATION COMPLIANT. PT WAS PLEASANT. PT HAD A SHOWER TODAY. PT'S VITALS ARE WNL. PT SLEPT 6.25 HOURS LAST NIGHT. PT IS APPROACHABLE TODAY AND WILL ENGAGE WITH STAFF WHEN APPROACHED. PT MAKES HER NEEDS KNOWN TO STAFF. PT FOLLOW RULES/ROUTINES ON THE UNIT. WILL CONTINUE TO MONITOR.
[2021-07-08 16:30] VITALS: BP 132/71
[2021-07-08] MEDS: MIRTAZAPINE 15 MG TABLET PO SCH (20:51)
--- NOTE | 2021-07-08 22:04 | PDOC ---
Exam Note: Donte Note: Please also refer to the separate dictated note~for this date of service dictated separately.~Patient seen individually. Discussed the patient with Nursing staff reviewed the chart.~Reviewed interim history and current functioning. Reviewed vital signs,~Labs/ Radiology~and current medications noted below. Continue current treatment with the changes noted in the dictated addendum note Assessment: Vital Signs/I&O: Vital Signs Date Time Temp Pulse Resp B/P (MAP) Pulse Ox O2 Delivery O2 Flow Rate FiO2 07/08/21 16:30 97.9 81 18 132/71 (91) 96 07/08/21 05:41 Room Air I & O 07/07/21 07/07/21 07/08/21 15:00 23:00 07:00 Intake Total 1140 ml 660 ml Balance 1140 ml 660 ml Labs: Laboratory Tests Test 07/08/21 05:18 07/08/21 06:33 07/08/21 07:18 07/08/21 11:42 SARS-CoV-2 (PCR) Negative (NEGATIVE) Sodium Level 139 mmol/L (136-145) Potassium Level 3.4 mmol/L (3.5-5.1) L Chloride Level 103 mmol/L (98-107) Carbon Dioxide Level 29 mmol/L (21-32) Anion Gap 7 (6-14) Blood Urea Nitrogen 11 mg/dL (7-20) Creatinine 0.7 mg/dL (0.6-1.0) Estimated GFR (Cockcroft-Gault) 84.0 Glucose Level 121 mg/dL (70-99) H Calcium Level 8.4 mg/dL (8.5-10.1) L Glucose (Fingerstick) 114 mg/dL (70-99) H 105 mg/dL (70-99) H Test 07/08/21 16:24 07/08/21 19:06 Glucose (Fingerstick) 166 mg/dL (70-99) H 247 mg/dL (70-99) H Current Medications: Meds: Laboratory Tests Test 07/08/21 05:18 07/08/21 06:33 07/08/21 07:18 07/08/21 11:42 Coronavirus (COVID-19)(PCR) Negative Sodium Level 139 mmol/L Potassium Level 3.4 mmol/L Chloride Level 103 mmol/L Carbon Dioxide Level 29 mmol/L Anion Gap 7 Blood Urea Nitrogen 11 mg/dL Creatinine 0.7 mg/dL Estimated GFR (Cockcroft-Gault) 84.0 Glucose Level 121 mg/dL Calcium Level 8.4 mg/dL Glucose (Fingerstick) 114 mg/dL 105 mg/dL Test 07/08/21 16:24 07/08/21 19:06 Glucose (Fingerstick) 166 mg/dL 247 mg/dL Current Medications Medications (Trade) Dose Ordered Sig/Leonides Route PRN Reason Start Time Stop Time Status Last Admin Dose Admin Acetaminophen (Tylenol) 650 mg PRN Q6HRS PRN PO MILD PAIN / TEMP > 100.3'F 07/03/21 16:30 Cancel Multi-Ingredient Ointment (Analgesic [place]) 1 swathi PRN QID PRN TP MUSCLE PAIN 07/03/21 16:30 Al Hydroxide/Mg Hydroxide (Mylanta Plus Xs) 15 ml PRN AFTMEALHC PRN PO DYSPEPSIA 07/03/21 16:30 Magnesium Hydroxide (Milk Of Magnesia) 2,400 mg PRN QHS PRN PO 2ND CHOICE CONSTIPATION 07/03/21 16:30 Acetaminophen (Tylenol) 650 mg PRN Q4HRS PRN PO MILD PAIN / TEMP > 100.3'F 07/03/21 18:45 Aspirin (Aspirin Enteric Coated) 81 mg DAILY PO 07/04/21 09:00 07/08/21 08:16 Bisacodyl (Dulcolax Tab) 5 mg PRN DAILY PRN PO 3RD CHOICE CONSTIPATION 07/03/21 18:45 Clonazepam (KlonoPIN) 0.5 mg TID PO 07/03/21 21:00 07/08/21 20:51 Diclofenac Sodium (Voltaren) 1 swathi PRN Q6HRS PRN TP PAIN 07/03/21 18:45 Divalproex Sodium (Depakote Sprinkles) 250 mg BID PO 07/03/21 21:00 07/06/21 23:37 DC 07/06/21 20:18 Furosemide (Lasix) 40 mg DAILY PO 07/04/21 09:00 07/08/21 08:19 Ibuprofen (Motrin) 400 mg PRN Q6HRS PRN PO MILD PAIN / TEMP > 100.3'F 07/03/21 18:45 Albuterol/ Ipratropium (Combivent Respimat 20-100 Mcg) 1 puff PRN BID PRN INH SHORTNESS OF BREATH 07/03/21 19:15 Levothyroxine Sodium (Synthroid) 175 mcg DAILY06 PO 07/04/21 06:00 07/08/21 05:14 Al Hydroxide/Mg Hydroxide (Mylanta Plus Xs) 15 ml PRN AFTMEALHC PRN PO DYSPEPSIA 07/03/21 18:45 UNV Magnesium Oxide (Magnesium Oxide) 400 mg DAILY PO 07/04/21 09:00 07/08/21 08:20 Multi-Ingredient Ointment (Analgesic [place]) 1 swathi PRN QID PRN TP MUSCLE PAIN 07/03/21 18:45 UNV Mirtazapine (Remeron) 15 mg QHS PO 07/03/21 21:00 07/08/21 20:51 Risperidone (RisperDAL CONSTA) 25 mg Q2WKS IM 07/05/21 09:00 07/05/21 08:27 Spironolactone (Aldactone) 25 mg DAILY PO 07/04/21 09:00 07/08/21 08:15 Trazodone HCl (Desyrel) 25 mg DAILY PO 07/04/21 09:00 07/08/21 08:19 Trazodone HCl (Desyrel) 50 mg BID@1300,1700 PO 07/04/21 13:00 07/08/21 17:30 Betamethasone Dipropion Augmented (Betamethasone Dp Aug 0.05% Cream) 1 swathi PRN BID PRN TP RASH 07/03/21 19:15 Non-Formulary Medication (Eucalyptus Oil/ Menthol/Camphor (Vicks Vaporub Ointment)) 50 gm QHS TP 07/03/21 21:00 UNV Guaifenesin (Robitussin Dm) 10 ml PRN Q4HRS PRN PO COUGH 07/03/21 19:15 Insulin Human Lispro (HumaLOG) 28 units TIDWMEALS SQ 07/04/21 08:00 07/08/21 17:29 Insulin Glargine (Lantus Syringe) 40 unit BID SQ 07/03/21 21:00 07/08/21 20:51 Non-Formulary Medication (Magnesium Hydroxide (Milk Of Magnesia)) 2,400 mg PRN QHS PRN PO CONSTIPATION 07/03/21 18:45 UNV Pantoprazole Sodium (Protonix) 40 mg DAILY PO 07/04/21 09:00 07/08/21 08:19 Oxybutynin Chloride (Ditropan) 5 mg DAILY PO 07/04/21 09:00 07/08/21 08:19 Polyethylene Glycol (miraLAX) 17 gm PRN Q72HRS PRN PO 1ST CHOICE CONSTIPATION 07/03/21 19:15 Potassium Chloride (Klor-Con) 10 meq DAILY PO 07/04/21 09:00 07/04/21 08:42 DC Propranolol HCl (Inderal) 40 mg DAILY PO 07/04/21 09:00 07/08/21 08:16 Vitamin D (Vitamin D3) 2,000 unit DAILY PO 07/04/21 09:00 07/08/21 08:16 Potassium Chloride (Klor-Con) 20 meq BID PO 07/05/21 09:00 07/08/21 20:51 Potassium Chloride (Klor-Con) 40 meq 1X ONCE PO 07/04/21 08:45 07/04/21 08:46 DC 07/04/21 08:59 Potassium Chloride (Klor-Con) 40 meq 1X ONCE PO 07/04/21 09:45 07/04/21 09:46 DC 07/04/21 10:02 Potassium Chloride (Klor-Con) 40 meq 1X ONCE PO 07/04/21 10:45 07/04/21 10:46 DC 07/04/21 10:45 Divalproex Sodium (Depakote Sprinkles) 500 mg BID PO 07/07/21 09:00 07/08/21 20:51 I have reviewed the current psychotropics carefully including drug interactions. Risk benefit ratio favors no change other than as noted in my dictated progress note. Diagnosis: Problems: (1) Schizoaffective disorder, bipolar type (2) Mild cognitive impairment (3) Anxiety disorder, unspecified (4) Impulse disorder, unspecified (5) Bipolar disorder, curr episode mixed, severe, with psychotic features RAJIV VELAZQUEZ MD Jul 08, 2021 22:04
--- NOTE | 2021-07-08 22:46 | NUR ---
Pt withdrawn to room, lying in bed when approached. Pt calm with a flat affect, but interactive during encounter. Pt cooperative with assessment and compliant with medications administered whole. No agitation or aggression noted thus far this shift.
[2021-07-09] MEDS: LEVOTHYROXINE 175 MCG TABLET PO SCH (05:08)
[2021-07-09] MEDS: ACETAMINOPHEN 325 MG TABLET PO PRN (05:36)
[2021-07-09 05:52] VITALS: BP 142/79
[2021-07-09 06:48] LABS: ALBUMIN 2.4 g/dL (3.4-5.0); ALBUMIN/GLOBULIN RATIO 0.6 (1.0-1.7); ALK PHOS 131 U/L (46-116); ALT (SGPT) 30 U/L (14-59); ANION GAP 9 (6-14); AST (SGOT) 40 U/L (15-37); BLOOD UREA NITROGEN 11 mg/dL (7-20); BUN/CREATININE RATIO 14 (6-20); CALCIUM 8.3 mg/dL (8.5-10.1); CARBON DIOXIDE 27 mmol/L (21-32); CHLORIDE 103 mmol/L (98-107); CREATININE 0.8 mg/dL (0.6-1.0); GLUCOSE 216 mg/dL (70-99); POTASSIUM 3.8 mmol/L (3.5-5.1); SODIUM 139 mmol/L (136-145); TOTAL BILIRUBIN 0.3 mg/dL (0.2-1.0); TOTAL PROTEIN 6.6 g/dL (6.4-8.2)
[2021-07-09 06:54] LABS: VAL ACID 46 mcg/mL (50-100)
[2021-07-09 07:11] LABS: BASO % 1 % (0-3); EOS # 0.5 x10^3/uL (0.0-0.7); EOS % 6 % (0-3); HEMATOCRIT 37.1 % (36.0-47.0); HEMOGLOBIN 12.3 g/dL (12.0-15.5); LYMPH # 1.5 x10^3/uL (1.0-4.8); LYMPH % 19 % (24-48); MEAN CORPUSCULAR HEMOGLOBIN 28 pg (25-35); MEAN CORPUSCULAR HGB CONC 33 g/dL (31-37); MEAN CORPUSCULAR VOLUME 85 fL (79-100); MONO # 1.3 x10^3/uL (0.0-1.1); MONO % 17 % (0-9); NEUT # 4.5 x10^3uL (1.8-7.7); NEUT % 58 % (31-73); PLATELET COUNT 193 x10^3/uL (140-400); RED BLOOD COUNT 4.37 x10^6/uL (3.50-5.40); RED CELL DISTRIBUTION WIDTH 15.1 % (11.5-14.5); WHITE BLOOD COUNT 7.9 x10^3/uL (4.0-11.0)
[2021-07-09] MEDS: ASPIRIN ENTERIC COATED 81 MG TABLET.DR. PO SCH (08:14)
[2021-07-09] MEDS: DIVALPROEX 125 MG CAP.SPRINK PO SCH ×2 (08:14→20:17)
[2021-07-09] MEDS: PROPRANOLOL 20 MG TABLET. PO SCH (08:14)
[2021-07-09] MEDS: CHOLECALCIFEROL (VITAMIN D3) 1,000 UNIT TABLET PO SCH (08:14)
[2021-07-09] MEDS: traZODone 50 MG TABLET. PO SCH ×3 (08:15→17:00)
[2021-07-09] MEDS: clonazePAM 0.5 MG TABLET PO SCH ×3 (08:15→20:17)
[2021-07-09] MEDS: SPIRONOLACTONE 25 MG TABLET PO SCH (08:16)
[2021-07-09] MEDS: FUROSEMIDE 40 MG TABLET PO SCH (08:16)
[2021-07-09] MEDS: MAGNESIUM OXIDE 400 MG TABLET PO SCH (08:16)
[2021-07-09] MEDS: OXYBUTYNIN CHLORIDE 5 MG TABLET PO SCH (08:16)
[2021-07-09] MEDS: PANTOPRAZOLE 40 MG TABLET. PO SCH (08:16)
[2021-07-09] MEDS: POTASSIUM CHLORIDE 10 MEQ TABLET.ER. PO SCH ×2 (08:16→20:33)
[2021-07-09] MEDS: INSULIN LISPRO 300 UNITS/3 ML VIAL. SQ SCH ×3 (08:18→17:39)
[2021-07-09] MEDS: INSULIN GLARGINE SYRINGE. SQ SCH ×2 (09:09→21:42)
--- NOTE | 2021-07-09 10:28 | NUR ---
RN DAY SHIFT NOTE: PT PRESENTS WITH FLAT AFFECT. PT IS COOPERATIVE AND MEDICATION COMPLIANT. PT IS APPROACHABLE AND MAKES NEEDS KNOWN TO STAFF. PT IS NOTED TO SPEND TIME RESTING IN HER BEDROOM TODAY. PT FOLLOWS RULES/ROUTINES ON THE UNIT. PT SLEPT SIX HOURS LAST NIGHT. PT KEEPS TO HERSELF AND IS LOW-ALFONSO ON THE UNIT. PT'S VITALS ARE WNL. WILL CONTINUE TO MONITOR.
[2021-07-09 15:33] VITALS: BP 113/73
[2021-07-09] MEDS: MIRTAZAPINE 15 MG TABLET PO SCH (20:17)
--- NOTE | 2021-07-09 22:00 | PDOC ---
Exam Note: Donte Note: Please also refer to the separate dictated note~for this date of service dictated separately.~Patient seen individually. Discussed the patient with Nursing staff reviewed the chart.~Reviewed interim history and current functioning. Reviewed vital signs,~Labs/ Radiology~and current medications noted below. Continue current treatment with the changes noted in the dictated addendum note Assessment: Vital Signs/I&O: Vital Signs Date Time Temp Pulse Resp B/P (MAP) Pulse Ox O2 Delivery O2 Flow Rate FiO2 07/09/21 15:33 97.8 74 18 113/73 (86) 96 07/08/21 05:41 Room Air I & O 07/08/21 07/08/21 07/09/21 15:00 23:00 07:00 Intake Total 1080 ml 480 ml Balance 1080 ml 480 ml Labs: Laboratory Tests Test 07/09/21 06:19 07/09/21 07:28 07/09/21 11:34 07/09/21 17:00 White Blood Count 7.9 x10^3/uL (4.0-11.0) Red Blood Count 4.37 x10^6/uL (3.50-5.40) Hemoglobin 12.3 g/dL (12.0-15.5) Hematocrit 37.1 % (36.0-47.0) Mean Corpuscular Volume 85 fL (79-100) Mean Corpuscular Hemoglobin 28 pg (25-35) Mean Corpuscular Hemoglobin Concent 33 g/dL (31-37) Red Cell Distribution Width 15.1 % (11.5-14.5) H Platelet Count 193 x10^3/uL (140-400) Neutrophils (%) (Auto) 58 % (31-73) Lymphocytes (%) (Auto) 19 % (24-48) L Monocytes (%) (Auto) 17 % (0-9) H Eosinophils (%) (Auto) 6 % (0-3) H Basophils (%) (Auto) 1 % (0-3) Neutrophils # (Auto) 4.5 x10^3uL (1.8-7.7) Lymphocytes # (Auto) 1.5 x10^3/uL (1.0-4.8) Monocytes # (Auto) 1.3 x10^3/uL (0.0-1.1) H Eosinophils # (Auto) 0.5 x10^3/uL (0.0-0.7) Basophils # (Auto) 0.0 x10^3/uL (0.0-0.2) Sodium Level 139 mmol/L (136-145) Potassium Level 3.8 mmol/L (3.5-5.1) Chloride Level 103 mmol/L (98-107) Carbon Dioxide Level 27 mmol/L (21-32) Anion Gap 9 (6-14) Blood Urea Nitrogen 11 mg/dL (7-20) Creatinine 0.8 mg/dL (0.6-1.0) Estimated GFR (Cockcroft-Gault) 72.0 BUN/Creatinine Ratio 14 (6-20) Glucose Level 216 mg/dL (70-99) H Calcium Level 8.3 mg/dL (8.5-10.1) L Total Bilirubin 0.3 mg/dL (0.2-1.0) Aspartate Amino Transferase (AST) 40 U/L (15-37) H Alanine Aminotransferase (ALT) 30 U/L (14-59) Alkaline Phosphatase 131 U/L (46-116) H Ammonia 32 mcmol/L (11-34) Total Protein 6.6 g/dL (6.4-8.2) Albumin 2.4 g/dL (3.4-5.0) L Albumin/Globulin Ratio 0.6 (1.0-1.7) L Valproic Acid Level 46 mcg/mL (50-100) L Valproic Acid Last Dose Date 07/08/21 Valproic Acid Last Dose Time 2100 Glucose (Fingerstick) 269 mg/dL (70-99) H 234 mg/dL (70-99) H 150 mg/dL (70-99) H Test 07/09/21 19:18 Glucose (Fingerstick) 182 mg/dL (70-99) H Current Medications: Meds: Laboratory Tests Test 07/09/21 06:19 07/09/21 07:28 07/09/21 11:34 07/09/21 17:00 White Blood Count 7.9 x10^3/uL Red Blood Count 4.37 x10^6/uL Hemoglobin 12.3 g/dL Hematocrit 37.1 % Mean Corpuscular Volume 85 fL Mean Corpuscular Hemoglobin 28 pg Mean Corpuscular Hemoglobin Concent 33 g/dL Red Cell Distribution Width 15.1 % Platelet Count 193 x10^3/uL Neutrophils (%) (Auto) 58 % Lymphocytes (%) (Auto) 19 % Monocytes (%) (Auto) 17 % Eosinophils (%) (Auto) 6 % Basophils (%) (Auto) 1 % Neutrophils # (Auto) 4.5 x10^3uL Lymphocytes # (Auto) 1.5 x10^3/uL Monocytes # (Auto) 1.3 x10^3/uL Eosinophils # (Auto) 0.5 x10^3/uL Basophils # (Auto) 0.0 x10^3/uL Sodium Level 139 mmol/L Potassium Level 3.8 mmol/L Chloride Level 103 mmol/L Carbon Dioxide Level 27 mmol/L Anion Gap 9 Blood Urea Nitrogen 11 mg/dL Creatinine 0.8 mg/dL Estimated GFR (Cockcroft-Gault) 72.0 BUN/Creatinine Ratio 14 Glucose Level 216 mg/dL Calcium Level 8.3 mg/dL Total Bilirubin 0.3 mg/dL Aspartate Amino Transf (AST/SGOT) 40 U/L Alanine Aminotransferase (ALT/SGPT) 30 U/L Alkaline Phosphatase 131 U/L Ammonia 32 mcmol/L Total Protein 6.6 g/dL Albumin 2.4 g/dL Albumin/Globulin Ratio 0.6 Valproic Acid (Depakene) Level 46 mcg/mL Valproic Acid Last Dose Date 07/08/21 Valproic Acid Last Dose Time 2100 Glucose (Fingerstick) 269 mg/dL 234 mg/dL 150 mg/dL Test 07/09/21 19:18 Glucose (Fingerstick) 182 mg/dL Current Medications Medications (Trade) Dose Ordered Sig/Leonides Route PRN Reason Start Time Stop Time Status Last Admin Dose Admin Acetaminophen (Tylenol) 650 mg PRN Q6HRS PRN PO MILD PAIN / TEMP > 100.3'F 07/03/21 16:30 Cancel Multi-Ingredient Ointment (Analgesic [place]) 1 swathi PRN QID PRN TP MUSCLE PAIN 07/03/21 16:30 Al Hydroxide/Mg Hydroxide (Mylanta Plus Xs) 15 ml PRN AFTMEALHC PRN PO DYSPEPSIA 07/03/21 16:30 Magnesium Hydroxide (Milk Of Magnesia) 2,400 mg PRN QHS PRN PO 2ND CHOICE CONSTIPATION 07/03/21 16:30 Acetaminophen (Tylenol) 650 mg PRN Q4HRS PRN PO MILD PAIN / TEMP > 100.3'F 07/03/21 18:45 07/09/21 05:36 Aspirin (Aspirin Enteric Coated) 81 mg DAILY PO 07/04/21 09:00 07/09/21 08:14 Bisacodyl (Dulcolax Tab) 5 mg PRN DAILY PRN PO 3RD CHOICE CONSTIPATION 07/03/21 18:45 Clonazepam (KlonoPIN) 0.5 mg TID PO 07/03/21 21:00 07/09/21 20:17 Diclofenac Sodium (Voltaren) 1 swathi PRN Q6HRS PRN TP PAIN 07/03/21 18:45 Divalproex Sodium (Depakote Sprinkles) 250 mg BID PO 07/03/21 21:00 07/06/21 23:37 DC 07/06/21 20:18 Furosemide (Lasix) 40 mg DAILY PO 07/04/21 09:00 07/09/21 08:16 Ibuprofen (Motrin) 400 mg PRN Q6HRS PRN PO MILD PAIN / TEMP > 100.3'F 07/03/21 18:45 Albuterol/ Ipratropium (Combivent Respimat 20-100 Mcg) 1 puff PRN BID PRN INH SHORTNESS OF BREATH 07/03/21 19:15 Levothyroxine Sodium (Synthroid) 175 mcg DAILY06 PO 07/04/21 06:00 07/09/21 05:08 Al Hydroxide/Mg Hydroxide (Mylanta Plus Xs) 15 ml PRN AFTMEALHC PRN PO DYSPEPSIA 07/03/21 18:45 UNV Magnesium Oxide (Magnesium Oxide) 400 mg DAILY PO 07/04/21 09:00 07/09/21 08:16 Multi-Ingredient Ointment (Analgesic [place]) 1 swathi PRN QID PRN TP MUSCLE PAIN 07/03/21 18:45 UNV Mirtazapine (Remeron) 15 mg QHS PO 07/03/21 21:00 07/09/21 20:17 Risperidone (RisperDAL CONSTA) 25 mg Q2WKS IM 07/05/21 09:00 07/05/21 08:27 Spironolactone (Aldactone) 25 mg DAILY PO 07/04/21 09:00 07/09/21 08:16 Trazodone HCl (Desyrel) 25 mg DAILY PO 07/04/21 09:00 07/09/21 08:15 Trazodone HCl (Desyrel) 50 mg BID@1300,1700 PO 07/04/21 13:00 07/09/21 17:00 Betamethasone Dipropion Augmented (Betamethasone Dp Aug 0.05% Cream) 1 swathi PRN BID PRN TP RASH 07/03/21 19:15 Non-Formulary Medication (Eucalyptus Oil/ Menthol/Camphor (Vicks Vaporub Ointment)) 50 gm QHS TP 07/03/21 21:00 UNV Guaifenesin (Robitussin Dm) 10 ml PRN Q4HRS PRN PO COUGH 07/03/21 19:15 Insulin Human Lispro (HumaLOG) 28 units TIDWMEALS SQ 07/04/21 08:00 07/09/21 17:39 Insulin Glargine (Lantus Syringe) 40 unit BID SQ 07/03/21 21:00 07/09/21 21:42 Non-Formulary Medication (Magnesium Hydroxide (Milk Of Magnesia)) 2,400 mg PRN QHS PRN PO CONSTIPATION 07/03/21 18:45 UNV Pantoprazole Sodium (Protonix) 40 mg DAILY PO 07/04/21 09:00 07/09/21 08:16 Oxybutynin Chloride (Ditropan) 5 mg DAILY PO 07/04/21 09:00 07/09/21 08:16 Polyethylene Glycol (miraLAX) 17 gm PRN Q72HRS PRN PO 1ST CHOICE CONSTIPATION 07/03/21 19:15 Potassium Chloride (Klor-Con) 10 meq DAILY PO 07/04/21 09:00 07/04/21 08:42 DC Propranolol HCl (Inderal) 40 mg DAILY PO 07/04/21 09:00 07/09/21 08:14 Vitamin D (Vitamin D3) 2,000 unit DAILY PO 07/04/21 09:00 07/09/21 08:14 Potassium Chloride (Klor-Con) 20 meq BID PO 07/05/21 09:00 07/09/21 20:33 Potassium Chloride (Klor-Con) 40 meq 1X ONCE PO 07/04/21 08:45 07/04/21 08:46 DC 07/04/21 08:59 Potassium Chloride (Klor-Con) 40 meq 1X ONCE PO 07/04/21 09:45 07/04/21 09:46 DC 07/04/21 10:02 Potassium Chloride (Klor-Con) 40 meq 1X ONCE PO 07/04/21 10:45 07/04/21 10:46 DC 07/04/21 10:45 Divalproex Sodium (Depakote Sprinkles) 500 mg BID PO 07/07/21 09:00 07/09/21 20:17 I have reviewed the current psychotropics carefully including drug interactions. Risk benefit ratio favors no change other than as noted in my dictated progress note. Diagnosis: Problems: (1) Schizoaffective disorder, bipolar type (2) Mild cognitive impairment (3) Anxiety disorder, unspecified (4) Impulse disorder, unspecified (5) Bipolar disorder, curr episode mixed, severe, with psychotic features RAJIV VELAZQUEZ MD Jul 09, 2021 22:00
--- NOTE | 2021-07-09 23:52 | NUR ---
Nursing Note pt in [facility] later [facility], is pleasant and cooperative. But when she decides she wants something, she becomes belligerent, and angry to staff. Pt begged for pop corn, instructed her I would look for some, while I had stepped way to get he insulin she started screaming at the [employer]. I came after and told her to not do things like that, because I had already informed her that it may take a minute to get stuff togehter. She apologized for her behavior and ate the popcorn.
[2021-07-10] MEDS: LEVOTHYROXINE 175 MCG TABLET PO SCH (06:17)
[2021-07-10 06:18] VITALS: BP_SYST 74
[2021-07-10] MEDS: CHOLECALCIFEROL (VITAMIN D3) 1,000 UNIT TABLET PO SCH (08:08)
[2021-07-10] MEDS: OXYBUTYNIN CHLORIDE 5 MG TABLET PO SCH (08:08)
[2021-07-10] MEDS: clonazePAM 0.5 MG TABLET PO SCH ×4 (08:08→20:48)
[2021-07-10] MEDS: POTASSIUM CHLORIDE 10 MEQ TABLET.ER. PO SCH ×2 (08:08→20:48)
[2021-07-10] MEDS: ASPIRIN ENTERIC COATED 81 MG TABLET.DR. PO SCH (08:08)
[2021-07-10] MEDS: DIVALPROEX 125 MG CAP.SPRINK PO SCH ×2 (08:09→20:47)
[2021-07-10] MEDS: SPIRONOLACTONE 25 MG TABLET PO SCH (08:09)
[2021-07-10] MEDS: PANTOPRAZOLE 40 MG TABLET. PO SCH (08:09)
[2021-07-10] MEDS: FUROSEMIDE 40 MG TABLET PO SCH (08:09)
[2021-07-10] MEDS: traZODone 50 MG TABLET. PO SCH ×4 (08:10→17:18)
[2021-07-10] MEDS: PROPRANOLOL 20 MG TABLET. PO SCH (08:10)
[2021-07-10] MEDS: MAGNESIUM OXIDE 400 MG TABLET PO SCH (08:11)
--- NOTE | 2021-07-10 09:10 | PDOC ---
Exam Note: Donte Note: This note is a late entry for 07/07/2021 covers elements not covered in my initial note. Subjective: The patient was seen face to face in the evening of 07/07/2021 with Marissa COPELAND, discussed and reviewed the chart. The patient slept 7-3/4 hours previous night. She has been somewhat withdrawn, tried to refuse insulin to get later. Valproic acid level is 31. Review of Systems: Ambulation impaired. No CV, , pulmonary, eye, ENT system symptoms on review. Mental Status Exam: The patient is reasonably oriented. Speech coherent has some latency. She does have a rather fixed stare about her at times. Abstraction fair. Computation impaired. Language function intact. Attention span fair. Mood and affect withdrawn. No suicidal or homicidal ideation. Laboratory Data: Reviewed. Impression: Schizo-affective disorder bipolar type mixed with psychotic features. Anxiety disorder unspecified. Impulse control disorder unspecified. Plan: Continue current psychotropics. Valproic acid level is 31 subtherapeutic on Depakote 250 mg b.i.d. We will increase this to 500 mg b.i.d. Check labs level in 3 days. Adjust further as clinically indicated. Assessment: Vital Signs/I&O: Vital Signs Date Time Temp Pulse Resp B/P (MAP) Pulse Ox O2 Delivery O2 Flow Rate FiO2 07/10/21 08:10 93 74/73 07/10/21 06:18 97.3 20 93 07/08/21 05:41 Room Air I & O 07/09/21 07/09/21 07/10/21 15:00 23:00 07:00 Intake Total 840 ml 1140 ml Balance 840 ml 1140 ml Labs: Laboratory Tests Test 07/09/21 11:34 07/09/21 17:00 07/09/21 19:18 07/10/21 08:09 Glucose (Fingerstick) 234 mg/dL (70-99) H 150 mg/dL (70-99) H 182 mg/dL (70-99) H 123 mg/dL (70-99) H Current Medications: Meds: Laboratory Tests Test 07/09/21 11:34 07/09/21 17:00 07/09/21 19:18 07/10/21 08:09 Glucose (Fingerstick) 234 mg/dL 150 mg/dL 182 mg/dL 123 mg/dL Current Medications Medications (Trade) Dose Ordered Sig/Leonides Route PRN Reason Start Time Stop Time Status Last Admin Dose Admin Acetaminophen (Tylenol) 650 mg PRN Q6HRS PRN PO MILD PAIN / TEMP > 100.3'F 07/03/21 16:30 Cancel Multi-Ingredient Ointment (Analgesic [place]) 1 swathi PRN QID PRN TP MUSCLE PAIN 07/03/21 16:30 Al Hydroxide/Mg Hydroxide (Mylanta Plus Xs) 15 ml PRN AFTMEALHC PRN PO DYSPEPSIA 07/03/21 16:30 Magnesium Hydroxide (Milk Of Magnesia) 2,400 mg PRN QHS PRN PO 2ND CHOICE CONSTIPATION 07/03/21 16:30 Acetaminophen (Tylenol) 650 mg PRN Q4HRS PRN PO MILD PAIN / TEMP > 100.3'F 07/03/21 18:45 07/09/21 05:36 Aspirin (Aspirin Enteric Coated) 81 mg DAILY PO 07/04/21 09:00 07/10/21 08:08 Bisacodyl (Dulcolax Tab) 5 mg PRN DAILY PRN PO 3RD CHOICE CONSTIPATION 07/03/21 18:45 Clonazepam (KlonoPIN) 0.5 mg TID PO 07/03/21 21:00 07/10/21 08:08 Diclofenac Sodium (Voltaren) 1 swathi PRN Q6HRS PRN TP PAIN 07/03/21 18:45 Divalproex Sodium (Depakote Sprinkles) 250 mg BID PO 07/03/21 21:00 07/06/21 23:37 DC 07/06/21 20:18 Furosemide (Lasix) 40 mg DAILY PO 07/04/21 09:00 07/10/21 08:09 Ibuprofen (Motrin) 400 mg PRN Q6HRS PRN PO MILD PAIN / TEMP > 100.3'F 07/03/21 18:45 Albuterol/ Ipratropium (Combivent Respimat 20-100 Mcg) 1 puff PRN BID PRN INH SHORTNESS OF BREATH 07/03/21 19:15 Levothyroxine Sodium (Synthroid) 175 mcg DAILY06 PO 07/04/21 06:00 07/10/21 06:17 Al Hydroxide/Mg Hydroxide (Mylanta Plus Xs) 15 ml PRN AFTMEALHC PRN PO DYSPEPSIA 07/03/21 18:45 UNV Magnesium Oxide (Magnesium Oxide) 400 mg DAILY PO 07/04/21 09:00 07/10/21 08:11 Multi-Ingredient Ointment (Analgesic [place]) 1 swathi PRN QID PRN TP MUSCLE PAIN 07/03/21 18:45 UNV Mirtazapine (Remeron) 15 mg QHS PO 07/03/21 21:00 07/09/21 20:17 Risperidone (RisperDAL CONSTA) 25 mg Q2WKS IM 07/05/21 09:00 07/05/21 08:27 Spironolactone (Aldactone) 25 mg DAILY PO 07/04/21 09:00 07/10/21 08:09 Trazodone HCl (Desyrel) 25 mg DAILY PO 07/04/21 09:00 07/10/21 08:10 Trazodone HCl (Desyrel) 50 mg BID@1300,1700 PO 07/04/21 13:00 07/09/21 17:00 Betamethasone Dipropion Augmented (Betamethasone Dp Aug 0.05% Cream) 1 swathi PRN BID PRN TP RASH 07/03/21 19:15 Non-Formulary Medication (Eucalyptus Oil/ Menthol/Camphor (Vicks Vaporub Ointment)) 50 gm QHS TP 07/03/21 21:00 UNV Guaifenesin (Robitussin Dm) 10 ml PRN Q4HRS PRN PO COUGH 07/03/21 19:15 Insulin Human Lispro (HumaLOG) 28 units TIDWMEALS SQ 07/04/21 08:00 07/09/21 17:39 Insulin Glargine (Lantus Syringe) 40 unit BID SQ 07/03/21 21:00 07/09/21 21:42 Non-Formulary Medication (Magnesium Hydroxide (Milk Of Magnesia)) 2,400 mg PRN QHS PRN PO CONSTIPATION 07/03/21 18:45 UNV Pantoprazole Sodium (Protonix) 40 mg DAILY PO 07/04/21 09:00 07/10/21 08:09 Oxybutynin Chloride (Ditropan) 5 mg DAILY PO 07/04/21 09:00 07/10/21 08:08 Polyethylene Glycol (miraLAX) 17 gm PRN Q72HRS PRN PO 1ST CHOICE CONSTIPATION 07/03/21 19:15 Potassium Chloride (Klor-Con) 10 meq DAILY PO 07/04/21 09:00 07/04/21 08:42 DC Propranolol HCl (Inderal) 40 mg DAILY PO 07/04/21 09:00 07/10/21 08:10 Vitamin D (Vitamin D3) 2,000 unit DAILY PO 07/04/21 09:00 07/10/21 08:08 Potassium Chloride (Klor-Con) 20 meq BID PO 07/05/21 09:00 07/10/21 08:08 Potassium Chloride (Klor-Con) 40 meq 1X ONCE PO 07/04/21 08:45 07/04/21 08:46 DC 07/04/21 08:59 Potassium Chloride (Klor-Con) 40 meq 1X ONCE PO 07/04/21 09:45 07/04/21 09:46 DC 07/04/21 10:02 Potassium Chloride (Klor-Con) 40 meq 1X ONCE PO 07/04/21 10:45 07/04/21 10:46 DC 07/04/21 10:45 Divalproex Sodium (Depakote Sprinkles) 500 mg BID PO 07/07/21 09:00 07/10/21 08:09 I have reviewed the current psychotropics carefully including drug interactions. Risk benefit ratio favors no change other than as noted in my dictated progress note. Diagnosis: Problems: (1) Schizoaffective disorder, bipolar type (2) Mild cognitive impairment (3) Anxiety disorder, unspecified (4) Impulse disorder, unspecified (5) Bipolar disorder, curr episode mixed, severe, with psychotic features RAJIV VELAZQUEZ MD Jul 10, 2021 09:10
--- NOTE | 2021-07-10 09:22 | NUR ---
Pt increasing in verbal agitation towards staff, at one point yelling spontaneously "I want to watch TV, we're not fucking animals."
[2021-07-10 09:24] VITALS: BP 123/72
[2021-07-10] MEDS: INSULIN LISPRO 300 UNITS/3 ML VIAL. SQ SCH ×3 (09:27→17:19)
[2021-07-10] MEDS: INSULIN GLARGINE SYRINGE. SQ SCH ×2 (09:29→21:02)
--- NOTE | 2021-07-10 09:37 | PDOC ---
Exam Note: Donte Note: This note is a late entry for 07/08/2021 covers elements not covered in my initial note. Subjective: The patient was seen face to face in the evening of 07/08/2021 with Chapito COPELAND, discussed and reviewed the chart. The patient slept 6-1/4 hours previous night. She has done well, somewhat quiet, withdrawn, not very verbally interactive. Review of Systems: Ambulation impaired. No CV, , pulmonary, eye, ENT system symptoms on review. Mental Status Exam: The patient is reasonably oriented. Speech coherent has some latency. Abstraction fair. Computation impaired. Language function intact. Mood and affect withdrawn. No suicidal or homicidal ideation. Laboratory Data: Reviewed. Impression: Schizo-affective disorder bipolar type mixed with psychotic features. Anxiety disorder unspecified. Impulse control disorder unspecified. Plan: Continue current psychotropics. Assessment: Vital Signs/I&O: Vital Signs Date Time Temp Pulse Resp B/P (MAP) Pulse Ox O2 Delivery O2 Flow Rate FiO2 07/10/21 09:24 85 123/72 (89) 07/10/21 06:18 97.3 20 93 07/08/21 05:41 Room Air I & O 07/09/21 07/09/21 07/10/21 15:00 23:00 07:00 Intake Total 840 ml 1140 ml Balance 840 ml 1140 ml Labs: Laboratory Tests Test 07/09/21 11:34 07/09/21 17:00 07/09/21 19:18 07/10/21 08:09 Glucose (Fingerstick) 234 mg/dL (70-99) H 150 mg/dL (70-99) H 182 mg/dL (70-99) H 123 mg/dL (70-99) H Current Medications: Meds: Laboratory Tests Test 07/09/21 11:34 07/09/21 17:00 07/09/21 19:18 07/10/21 08:09 Glucose (Fingerstick) 234 mg/dL 150 mg/dL 182 mg/dL 123 mg/dL Current Medications Medications (Trade) Dose Ordered Sig/Leonides Route PRN Reason Start Time Stop Time Status Last Admin Dose Admin Acetaminophen (Tylenol) 650 mg PRN Q6HRS PRN PO MILD PAIN / TEMP > 100.3'F 07/03/21 16:30 Cancel Multi-Ingredient Ointment (Analgesic [place]) 1 swathi PRN QID PRN TP MUSCLE PAIN 07/03/21 16:30 Al Hydroxide/Mg Hydroxide (Mylanta Plus Xs) 15 ml PRN AFTMEALHC PRN PO DYSPEPSIA 07/03/21 16:30 Magnesium Hydroxide (Milk Of Magnesia) 2,400 mg PRN QHS PRN PO 2ND CHOICE CONSTIPATION 07/03/21 16:30 Acetaminophen (Tylenol) 650 mg PRN Q4HRS PRN PO MILD PAIN / TEMP > 100.3'F 07/03/21 18:45 07/09/21 05:36 Aspirin (Aspirin Enteric Coated) 81 mg DAILY PO 07/04/21 09:00 07/10/21 08:08 Bisacodyl (Dulcolax Tab) 5 mg PRN DAILY PRN PO 3RD CHOICE CONSTIPATION 07/03/21 18:45 Clonazepam (KlonoPIN) 0.5 mg TID PO 07/03/21 21:00 07/10/21 08:08 Diclofenac Sodium (Voltaren) 1 swathi PRN Q6HRS PRN TP PAIN 07/03/21 18:45 Divalproex Sodium (Depakote Sprinkles) 250 mg BID PO 07/03/21 21:00 07/06/21 23:37 DC 07/06/21 20:18 Furosemide (Lasix) 40 mg DAILY PO 07/04/21 09:00 07/10/21 08:09 Ibuprofen (Motrin) 400 mg PRN Q6HRS PRN PO MILD PAIN / TEMP > 100.3'F 07/03/21 18:45 Albuterol/ Ipratropium (Combivent Respimat 20-100 Mcg) 1 puff PRN BID PRN INH SHORTNESS OF BREATH 07/03/21 19:15 Levothyroxine Sodium (Synthroid) 175 mcg DAILY06 PO 07/04/21 06:00 07/10/21 06:17 Al Hydroxide/Mg Hydroxide (Mylanta Plus Xs) 15 ml PRN AFTMEALHC PRN PO DYSPEPSIA 07/03/21 18:45 UNV Magnesium Oxide (Magnesium Oxide) 400 mg DAILY PO 07/04/21 09:00 07/10/21 08:11 Multi-Ingredient Ointment (Analgesic [place]) 1 swathi PRN QID PRN TP MUSCLE PAIN 07/03/21 18:45 UNV Mirtazapine (Remeron) 15 mg QHS PO 07/03/21 21:00 07/09/21 20:17 Risperidone (RisperDAL CONSTA) 25 mg Q2WKS IM 07/05/21 09:00 07/05/21 08:27 Spironolactone (Aldactone) 25 mg DAILY PO 07/04/21 09:00 07/10/21 08:09 Trazodone HCl (Desyrel) 25 mg DAILY PO 07/04/21 09:00 07/10/21 08:10 Trazodone HCl (Desyrel) 50 mg BID@1300,1700 PO 07/04/21 13:00 07/09/21 17:00 Betamethasone Dipropion Augmented (Betamethasone Dp Aug 0.05% Cream) 1 swathi PRN BID PRN TP RASH 07/03/21 19:15 Non-Formulary Medication (Eucalyptus Oil/ Menthol/Camphor (Vicks Vaporub Ointment)) 50 gm QHS TP 07/03/21 21:00 UNV Guaifenesin (Robitussin Dm) 10 ml PRN Q4HRS PRN PO COUGH 07/03/21 19:15 Insulin Human Lispro (HumaLOG) 28 units TIDWMEALS SQ 07/04/21 08:00 07/10/21 09:27 Insulin Glargine (Lantus Syringe) 40 unit BID SQ 07/03/21 21:00 07/10/21 09:29 Non-Formulary Medication (Magnesium Hydroxide (Milk Of Magnesia)) 2,400 mg PRN QHS PRN PO CONSTIPATION 07/03/21 18:45 UNV Pantoprazole Sodium (Protonix) 40 mg DAILY PO 07/04/21 09:00 07/10/21 08:09 Oxybutynin Chloride (Ditropan) 5 mg DAILY PO 07/04/21 09:00 07/10/21 08:08 Polyethylene Glycol (miraLAX) 17 gm PRN Q72HRS PRN PO 1ST CHOICE CONSTIPATION 07/03/21 19:15 Potassium Chloride (Klor-Con) 10 meq DAILY PO 07/04/21 09:00 07/04/21 08:42 DC Propranolol HCl (Inderal) 40 mg DAILY PO 07/04/21 09:00 07/10/21 08:10 Vitamin D (Vitamin D3) 2,000 unit DAILY PO 07/04/21 09:00 07/10/21 08:08 Potassium Chloride (Klor-Con) 20 meq BID PO 07/05/21 09:00 07/10/21 08:08 Potassium Chloride (Klor-Con) 40 meq 1X ONCE PO 07/04/21 08:45 07/04/21 08:46 DC 07/04/21 08:59 Potassium Chloride (Klor-Con) 40 meq 1X ONCE PO 07/04/21 09:45 07/04/21 09:46 DC 07/04/21 10:02 Potassium Chloride (Klor-Con) 40 meq 1X ONCE PO 07/04/21 10:45 07/04/21 10:46 DC 07/04/21 10:45 Divalproex Sodium (Depakote Sprinkles) 500 mg BID PO 07/07/21 09:00 07/10/21 08:09 I have reviewed the current psychotropics carefully including drug interactions. Risk benefit ratio favors no change other than as noted in my dictated progress note. Diagnosis: Problems: (1) Schizoaffective disorder, bipolar type (2) Mild cognitive impairment (3) Anxiety disorder, unspecified (4) Impulse disorder, unspecified (5) Bipolar disorder, curr episode mixed, severe, with psychotic features RAJIV VELAZQUEZ MD Jul 10, 2021 09:37
--- NOTE | 2021-07-10 10:36 | PDOC ---
Exam Note: Donte Note: This note is a late entry for 07/09/2021 covers elements not covered in my initial note. Subjective: The patient was seen face to face in the evening of 07/09/2021 with Chapito COPELAND, discussed and reviewed the chart. The patient slept 6 hours previous night. She has not been agitated or aggressive, little more interactive. I met with her in the hallway in the evening individually. Review of Systems: Ambulation impaired. No CV, , pulmonary, eye, ENT system symptoms on review. Mental Status Exam: The patient is reasonably oriented. Speech coherent has some latency. Abstraction fair. Computation impaired. Language function intact. Mood and affect withdrawn. No suicidal or homicidal ideation. She was eating ice-cream snack after dinner. She was pleasant, smiling as I met with her. Laboratory Data: Reviewed. Impression: Schizo-affective disorder bipolar type mixed with psychotic features. Anxiety disorder unspecified. Impulse control disorder unspecified. Plan: Continue current psychotropics. Assessment: Vital Signs/I&O: Vital Signs Date Time Temp Pulse Resp B/P (MAP) Pulse Ox O2 Delivery O2 Flow Rate FiO2 07/10/21 09:24 85 123/72 (89) 07/10/21 06:18 97.3 20 93 07/08/21 05:41 Room Air I & O 07/09/21 07/09/21 07/10/21 15:00 23:00 07:00 Intake Total 840 ml 1140 ml Balance 840 ml 1140 ml Labs: Laboratory Tests Test 07/09/21 11:34 07/09/21 17:00 07/09/21 19:18 07/10/21 08:09 Glucose (Fingerstick) 234 mg/dL (70-99) H 150 mg/dL (70-99) H 182 mg/dL (70-99) H 123 mg/dL (70-99) H Current Medications: Meds: Laboratory Tests Test 07/09/21 11:34 07/09/21 17:00 07/09/21 19:18 07/10/21 08:09 Glucose (Fingerstick) 234 mg/dL 150 mg/dL 182 mg/dL 123 mg/dL Current Medications Medications (Trade) Dose Ordered Sig/Leonides Route PRN Reason Start Time Stop Time Status Last Admin Dose Admin Acetaminophen (Tylenol) 650 mg PRN Q6HRS PRN PO MILD PAIN / TEMP > 100.3'F 07/03/21 16:30 Cancel Multi-Ingredient Ointment (Analgesic [place]) 1 swathi PRN QID PRN TP MUSCLE PAIN 07/03/21 16:30 Al Hydroxide/Mg Hydroxide (Mylanta Plus Xs) 15 ml PRN AFTMEALHC PRN PO DYSPEPSIA 07/03/21 16:30 Magnesium Hydroxide (Milk Of Magnesia) 2,400 mg PRN QHS PRN PO 2ND CHOICE CONSTIPATION 07/03/21 16:30 Acetaminophen (Tylenol) 650 mg PRN Q4HRS PRN PO MILD PAIN / TEMP > 100.3'F 07/03/21 18:45 07/09/21 05:36 Aspirin (Aspirin Enteric Coated) 81 mg DAILY PO 07/04/21 09:00 07/10/21 08:08 Bisacodyl (Dulcolax Tab) 5 mg PRN DAILY PRN PO 3RD CHOICE CONSTIPATION 07/03/21 18:45 Clonazepam (KlonoPIN) 0.5 mg TID PO 07/03/21 21:00 07/10/21 08:08 Diclofenac Sodium (Voltaren) 1 swathi PRN Q6HRS PRN TP PAIN 07/03/21 18:45 Divalproex Sodium (Depakote Sprinkles) 250 mg BID PO 07/03/21 21:00 07/06/21 23:37 DC 07/06/21 20:18 Furosemide (Lasix) 40 mg DAILY PO 07/04/21 09:00 07/10/21 08:09 Ibuprofen (Motrin) 400 mg PRN Q6HRS PRN PO MILD PAIN / TEMP > 100.3'F 07/03/21 18:45 Albuterol/ Ipratropium (Combivent Respimat 20-100 Mcg) 1 puff PRN BID PRN INH SHORTNESS OF BREATH 07/03/21 19:15 Levothyroxine Sodium (Synthroid) 175 mcg DAILY06 PO 07/04/21 06:00 07/10/21 06:17 Al Hydroxide/Mg Hydroxide (Mylanta Plus Xs) 15 ml PRN AFTMEALHC PRN PO DYSPEPSIA 07/03/21 18:45 UNV Magnesium Oxide (Magnesium Oxide) 400 mg DAILY PO 07/04/21 09:00 07/10/21 08:11 Multi-Ingredient Ointment (Analgesic [place]) 1 swathi PRN QID PRN TP MUSCLE PAIN 07/03/21 18:45 UNV Mirtazapine (Remeron) 15 mg QHS PO 07/03/21 21:00 07/09/21 20:17 Risperidone (RisperDAL CONSTA) 25 mg Q2WKS IM 07/05/21 09:00 07/05/21 08:27 Spironolactone (Aldactone) 25 mg DAILY PO 07/04/21 09:00 07/10/21 08:09 Trazodone HCl (Desyrel) 25 mg DAILY PO 07/04/21 09:00 07/10/21 08:10 Trazodone HCl (Desyrel) 50 mg BID@1300,1700 PO 07/04/21 13:00 07/09/21 17:00 Betamethasone Dipropion Augmented (Betamethasone Dp Aug 0.05% Cream) 1 swathi PRN BID PRN TP RASH 07/03/21 19:15 Non-Formulary Medication (Eucalyptus Oil/ Menthol/Camphor (Vicks Vaporub Ointment)) 50 gm QHS TP 07/03/21 21:00 UNV Guaifenesin (Robitussin Dm) 10 ml PRN Q4HRS PRN PO COUGH 07/03/21 19:15 Insulin Human Lispro (HumaLOG) 28 units TIDWMEALS SQ 07/04/21 08:00 07/10/21 09:27 Insulin Glargine (Lantus Syringe) 40 unit BID SQ 07/03/21 21:00 07/10/21 09:29 Non-Formulary Medication (Magnesium Hydroxide (Milk Of Magnesia)) 2,400 mg PRN QHS PRN PO CONSTIPATION 07/03/21 18:45 UNV Pantoprazole Sodium (Protonix) 40 mg DAILY PO 07/04/21 09:00 07/10/21 08:09 Oxybutynin Chloride (Ditropan) 5 mg DAILY PO 07/04/21 09:00 07/10/21 08:08 Polyethylene Glycol (miraLAX) 17 gm PRN Q72HRS PRN PO 1ST CHOICE CONSTIPATION 07/03/21 19:15 Potassium Chloride (Klor-Con) 10 meq DAILY PO 07/04/21 09:00 07/04/21 08:42 DC Propranolol HCl (Inderal) 40 mg DAILY PO 07/04/21 09:00 07/10/21 08:10 Vitamin D (Vitamin D3) 2,000 unit DAILY PO 07/04/21 09:00 07/10/21 08:08 Potassium Chloride (Klor-Con) 20 meq BID PO 07/05/21 09:00 07/10/21 08:08 Potassium Chloride (Klor-Con) 40 meq 1X ONCE PO 07/04/21 08:45 07/04/21 08:46 DC 07/04/21 08:59 Potassium Chloride (Klor-Con) 40 meq 1X ONCE PO 07/04/21 09:45 07/04/21 09:46 DC 07/04/21 10:02 Potassium Chloride (Klor-Con) 40 meq 1X ONCE PO 07/04/21 10:45 07/04/21 10:46 DC 07/04/21 10:45 Divalproex Sodium (Depakote Sprinkles) 500 mg BID PO 07/07/21 09:00 07/10/21 08:09 I have reviewed the current psychotropics carefully including drug interactions. Risk benefit ratio favors no change other than as noted in my dictated progress note. Diagnosis: Problems: (1) Schizoaffective disorder, bipolar type (2) Mild cognitive impairment (3) Anxiety disorder, unspecified (4) Impulse disorder, unspecified (5) Bipolar disorder, curr episode mixed, severe, with psychotic features RAJIV VELAZQUEZ MD Jul 10, 2021 10:36
--- NOTE | 2021-07-10 11:01 | NUR ---
Pt med compliant this morning. Absent of SI/HI/VH/AH/delusions, she denies pain when asked. She remains hyperfocused on watching TV or the tablet. All tablets are being charged d/t batteries. Despite this explanation she will ask a staff member for the tablet q5min despite just being offered the explanation regarding the devices charging. She has been absent of physical aggression towards others, but did display a verbal outburst (see previous note). No PRNs have had to be administered thus far. Plan of care continues, will pass to next shift.
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
[2021-07-10 15:45] VITALS: BP 114/70
[2021-07-10] MEDS: MIRTAZAPINE 15 MG TABLET PO SCH (20:48)
--- NOTE | 2021-07-10 21:57 | PDOC ---
Exam Note: Donte Note: Please also refer to the separate dictated note~for this date of service dictated separately.~Patient seen individually. Discussed the patient with Nursing staff reviewed the chart.~Reviewed interim history and current functioning. Reviewed vital signs,~Labs/ Radiology~and current medications noted below. Continue current treatment with the changes noted in the dictated addendum note Assessment: Vital Signs/I&O: Vital Signs Date Time Temp Pulse Resp B/P (MAP) Pulse Ox O2 Delivery O2 Flow Rate FiO2 07/10/21 15:45 97.3 79 16 114/70 (85) 96 07/08/21 05:41 Room Air I & O 07/09/21 07/09/21 07/10/21 15:00 23:00 07:00 Intake Total 840 ml 1140 ml Balance 840 ml 1140 ml Labs: Laboratory Tests Test 07/10/21 08:09 07/10/21 11:15 07/10/21 12:13 07/10/21 17:03 Glucose (Fingerstick) 123 mg/dL (70-99) H 137 mg/dL (70-99) H 152 mg/dL (70-99) H SARS-CoV-2 (PCR) Negative (NEGATIVE) Test 07/10/21 19:25 Glucose (Fingerstick) 121 mg/dL (70-99) H Current Medications: Meds: Laboratory Tests Test 07/10/21 08:09 07/10/21 11:15 07/10/21 12:13 07/10/21 17:03 Glucose (Fingerstick) 123 mg/dL 137 mg/dL 152 mg/dL Coronavirus (COVID-19)(PCR) Negative Test 07/10/21 19:25 Glucose (Fingerstick) 121 mg/dL Current Medications Medications (Trade) Dose Ordered Sig/Leonides Route PRN Reason Start Time Stop Time Status Last Admin Dose Admin Acetaminophen (Tylenol) 650 mg PRN Q6HRS PRN PO MILD PAIN / TEMP > 100.3'F 07/03/21 16:30 Cancel Multi-Ingredient Ointment (Analgesic [place]) 1 swathi PRN QID PRN TP MUSCLE PAIN 07/03/21 16:30 Al Hydroxide/Mg Hydroxide (Mylanta Plus Xs) 15 ml PRN AFTMEALHC PRN PO DYSPEPSIA 07/03/21 16:30 Magnesium Hydroxide (Milk Of Magnesia) 2,400 mg PRN QHS PRN PO 2ND CHOICE CONSTIPATION 07/03/21 16:30 Acetaminophen (Tylenol) 650 mg PRN Q4HRS PRN PO MILD PAIN / TEMP > 100.3'F 07/03/21 18:45 07/09/21 05:36 Aspirin (Aspirin Enteric Coated) 81 mg DAILY PO 07/04/21 09:00 07/10/21 08:08 Bisacodyl (Dulcolax Tab) 5 mg PRN DAILY PRN PO 3RD CHOICE CONSTIPATION 07/03/21 18:45 Clonazepam (KlonoPIN) 0.5 mg TID PO 07/03/21 21:00 07/10/21 20:48 Diclofenac Sodium (Voltaren) 1 swathi PRN Q6HRS PRN TP PAIN 07/03/21 18:45 Divalproex Sodium (Depakote Sprinkles) 250 mg BID PO 07/03/21 21:00 07/06/21 23:37 DC 07/06/21 20:18 Furosemide (Lasix) 40 mg DAILY PO 07/04/21 09:00 07/10/21 08:09 Ibuprofen (Motrin) 400 mg PRN Q6HRS PRN PO MILD PAIN / TEMP > 100.3'F 07/03/21 18:45 Albuterol/ Ipratropium (Combivent Respimat 20-100 Mcg) 1 puff PRN BID PRN INH SHORTNESS OF BREATH 07/03/21 19:15 Levothyroxine Sodium (Synthroid) 175 mcg DAILY06 PO 07/04/21 06:00 07/10/21 06:17 Al Hydroxide/Mg Hydroxide (Mylanta Plus Xs) 15 ml PRN AFTMEALHC PRN PO DYSPEPSIA 07/03/21 18:45 UNV Magnesium Oxide (Magnesium Oxide) 400 mg DAILY PO 07/04/21 09:00 07/10/21 08:11 Multi-Ingredient Ointment (Analgesic [place]) 1 swathi PRN QID PRN TP MUSCLE PAIN 07/03/21 18:45 UNV Mirtazapine (Remeron) 15 mg QHS PO 07/03/21 21:00 07/10/21 20:48 Risperidone (RisperDAL CONSTA) 25 mg Q2WKS IM 07/05/21 09:00 07/05/21 08:27 Spironolactone (Aldactone) 25 mg DAILY PO 07/04/21 09:00 07/10/21 08:09 Trazodone HCl (Desyrel) 25 mg DAILY PO 07/04/21 09:00 07/10/21 08:10 Trazodone HCl (Desyrel) 50 mg BID@1300,1700 PO 07/04/21 13:00 07/10/21 17:18 Betamethasone Dipropion Augmented (Betamethasone Dp Aug 0.05% Cream) 1 swathi PRN BID PRN TP RASH 07/03/21 19:15 Non-Formulary Medication (Eucalyptus Oil/ Menthol/Camphor (Vicks Vaporub Ointment)) 50 gm QHS TP 07/03/21 21:00 UNV Guaifenesin (Robitussin Dm) 10 ml PRN Q4HRS PRN PO COUGH 07/03/21 19:15 Insulin Human Lispro (HumaLOG) 28 units TIDWMEALS SQ 07/04/21 08:00 07/10/21 17:19 Insulin Glargine (Lantus Syringe) 40 unit BID SQ 07/03/21 21:00 07/10/21 21:02 Non-Formulary Medication (Magnesium Hydroxide (Milk Of Magnesia)) 2,400 mg PRN QHS PRN PO CONSTIPATION 07/03/21 18:45 UNV Pantoprazole Sodium (Protonix) 40 mg DAILY PO 07/04/21 09:00 07/10/21 08:09 Oxybutynin Chloride (Ditropan) 5 mg DAILY PO 07/04/21 09:00 07/10/21 08:08 Polyethylene Glycol (miraLAX) 17 gm PRN Q72HRS PRN PO 1ST CHOICE CONSTIPATION 07/03/21 19:15 Potassium Chloride (Klor-Con) 10 meq DAILY PO 07/04/21 09:00 07/04/21 08:42 DC Propranolol HCl (Inderal) 40 mg DAILY PO 07/04/21 09:00 07/10/21 08:10 Vitamin D (Vitamin D3) 2,000 unit DAILY PO 07/04/21 09:00 07/10/21 08:08 Potassium Chloride (Klor-Con) 20 meq BID PO 07/05/21 09:00 07/10/21 20:48 Potassium Chloride (Klor-Con) 40 meq 1X ONCE PO 07/04/21 08:45 07/04/21 08:46 DC 07/04/21 08:59 Potassium Chloride (Klor-Con) 40 meq 1X ONCE PO 07/04/21 09:45 07/04/21 09:46 DC 07/04/21 10:02 Potassium Chloride (Klor-Con) 40 meq 1X ONCE PO 07/04/21 10:45 07/04/21 10:46 DC 07/04/21 10:45 Divalproex Sodium (Depakote Sprinkles) 500 mg BID PO 07/07/21 09:00 07/10/21 16:07 DC 07/10/21 08:09 Divalproex Sodium (Depakote Sprinkles) 750 mg BID PO 07/10/21 21:00 07/10/21 20:47 Current Medications Medications (Trade) Dose Ordered Sig/Leonides Route PRN Reason Start Time Stop Time Status Last Admin Dose Admin Divalproex Sodium (Depakote Sprinkles) 750 mg BID PO 07/10/21 21:00 07/10/21 20:47 I have reviewed the current psychotropics carefully including drug interactions. Risk benefit ratio favors no change other than as noted in my dictated progress note. Diagnosis: Problems: (1) Schizoaffective disorder, bipolar type (2) Mild cognitive impairment (3) Anxiety disorder, unspecified (4) Impulse disorder, unspecified (5) Bipolar disorder, curr episode mixed, severe, with psychotic features RAJIV VELAZQUEZ MD Jul 10, 2021 21:57
[2021-07-11 05:22] VITALS: BP 130/80
[2021-07-11] MEDS: LEVOTHYROXINE 175 MCG TABLET PO SCH (07:24)
[2021-07-11] MEDS: clonazePAM 0.5 MG TABLET PO SCH ×3 (09:00→20:08)
[2021-07-11] MEDS: MAGNESIUM OXIDE 400 MG TABLET PO SCH (09:00)
[2021-07-11] MEDS: POTASSIUM CHLORIDE 10 MEQ TABLET.ER. PO SCH ×2 (09:24→20:05)
[2021-07-11] MEDS: OXYBUTYNIN CHLORIDE 5 MG TABLET PO SCH (09:24)
[2021-07-11] MEDS: traZODone 50 MG TABLET. PO SCH ×3 (09:24→17:14)
[2021-07-11] MEDS: DIVALPROEX 125 MG CAP.SPRINK PO SCH ×2 (09:24→20:05)
[2021-07-11] MEDS: ASPIRIN ENTERIC COATED 81 MG TABLET.DR. PO SCH (09:25)
[2021-07-11] MEDS: PROPRANOLOL 20 MG TABLET. PO SCH (09:25)
[2021-07-11] MEDS: SPIRONOLACTONE 25 MG TABLET PO SCH (09:25)
[2021-07-11] MEDS: FUROSEMIDE 40 MG TABLET PO SCH (09:25)
[2021-07-11] MEDS: CHOLECALCIFEROL (VITAMIN D3) 1,000 UNIT TABLET PO SCH (09:26)
[2021-07-11] MEDS: PANTOPRAZOLE 40 MG TABLET. PO SCH (09:26)
[2021-07-11] MEDS: INSULIN LISPRO 300 UNITS/3 ML VIAL. SQ SCH ×3 (09:34→17:15)
[2021-07-11] MEDS: INSULIN GLARGINE SYRINGE. SQ SCH ×2 (09:35→21:46)
--- NOTE | 2021-07-11 10:53 | NUR ---
Pt appears to be med compliant and appropriate thus far today. She is once again amb with a 4 point walker, this nurse is unsure of where she obtained it. Rehab contacted by this nurse and PO/OT consult noted reviewed. It appears as if the walker was given to pt not so much for difficulty walking but d/t behavior/attention seeking/manipulation potential should she not have one. Pt had a shower this morning and tolerated it well. Pt is alert and orientated, absent of SI/HI/VH/AH/delusions, she denies pain when asked. Plan of care continues, will pass to next shift.
--- NOTE | 2021-07-11 11:50 | NUR ---
WEEKLY ACTIVITY THERAPY NOTE Date of Admission:07/03/21 Date of AT Assessment: 07/05/21 Precipitating behaviors that initiated intake and admission: refusing meds, decreased blood sugars, irritable, agitated, verbally aggressive, swearing, screaming Goal aimed: to increase stimulation and socialization Initial Goal: Pt. will participate in at least five individual or Activity Therapy group sessions per week. Weekly progress towards goal: did not achieve, / Group participation level: 1 full Weekly highlights: listening to music on the thursday Behaviors observed: pleasant and social Plan: no change to goal Beneficial adaptations: music
--- NOTE | 2021-07-11 12:16 | NUR ---
When pt was getting her blood sugars checked she screamed loudly and angrily at THERMODYNAMIC PHYSICIST "I'm not your maid!!" THERMODYNAMIC PHYSICIST states she was taking pt's blood sugar and there was no conversation happening which would prompt pt to scream such a statement. THERMODYNAMIC PHYSICIST placed firm and clear boundaries regarding behaviors and language on the unit, and afterwords pt began to speak in a normal tone.
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
[2021-07-11 16:18] VITALS: BP_SYST 116
[2021-07-11] MEDS: MIRTAZAPINE 15 MG TABLET PO SCH (20:05)
--- NOTE | 2021-07-11 21:59 | PDOC ---
Exam Note: Donte Note: Please also refer to the separate dictated note~for this date of service dictated separately.~Patient seen individually. Discussed the patient with Nursing staff reviewed the chart.~Reviewed interim history and current functioning. Reviewed vital signs,~Labs/ Radiology~and current medications noted below. Continue current treatment with the changes noted in the dictated addendum note Assessment: Vital Signs/I&O: Vital Signs Date Time Temp Pulse Resp B/P (MAP) Pulse Ox O2 Delivery O2 Flow Rate FiO2 07/11/21 16:18 97.8 82 18 116/ 94 07/08/21 05:41 Room Air I & O 07/10/21 07/10/21 07/11/21 15:00 23:00 07:00 Intake Total 240 ml Balance 240 ml Labs: Laboratory Tests Test 07/11/21 07:41 07/11/21 11:58 07/11/21 16:45 07/11/21 19:06 Glucose (Fingerstick) 133 mg/dL (70-99) H 238 mg/dL (70-99) H 145 mg/dL (70-99) H 184 mg/dL (70-99) H Current Medications: Meds: Laboratory Tests Test 07/11/21 07:41 07/11/21 11:58 07/11/21 16:45 07/11/21 19:06 Glucose (Fingerstick) 133 mg/dL 238 mg/dL 145 mg/dL 184 mg/dL Current Medications Medications (Trade) Dose Ordered Sig/Leonides Route PRN Reason Start Time Stop Time Status Last Admin Dose Admin Acetaminophen (Tylenol) 650 mg PRN Q6HRS PRN PO MILD PAIN / TEMP > 100.3'F 07/03/21 16:30 Cancel Multi-Ingredient Ointment (Analgesic [place]) 1 swathi PRN QID PRN TP MUSCLE PAIN 07/03/21 16:30 Al Hydroxide/Mg Hydroxide (Mylanta Plus Xs) 15 ml PRN AFTMEALHC PRN PO DYSPEPSIA 07/03/21 16:30 Magnesium Hydroxide (Milk Of Magnesia) 2,400 mg PRN QHS PRN PO 2ND CHOICE CONSTIPATION 07/03/21 16:30 Acetaminophen (Tylenol) 650 mg PRN Q4HRS PRN PO MILD PAIN / TEMP > 100.3'F 07/03/21 18:45 07/09/21 05:36 Aspirin (Aspirin Enteric Coated) 81 mg DAILY PO 07/04/21 09:00 07/11/21 09:25 Bisacodyl (Dulcolax Tab) 5 mg PRN DAILY PRN PO 3RD CHOICE CONSTIPATION 07/03/21 18:45 Clonazepam (KlonoPIN) 0.5 mg TID PO 07/03/21 21:00 07/11/21 20:08 Diclofenac Sodium (Voltaren) 1 swathi PRN Q6HRS PRN TP PAIN 07/03/21 18:45 Divalproex Sodium (Depakote Sprinkles) 250 mg BID PO 07/03/21 21:00 07/06/21 23:37 DC 07/06/21 20:18 Furosemide (Lasix) 40 mg DAILY PO 07/04/21 09:00 07/11/21 09:25 Ibuprofen (Motrin) 400 mg PRN Q6HRS PRN PO INFLAMMATION / TEMP > 100.3'F 07/03/21 18:45 Albuterol/ Ipratropium (Combivent Respimat 20-100 Mcg) 1 puff PRN BID PRN INH SHORTNESS OF BREATH 07/03/21 19:15 Levothyroxine Sodium (Synthroid) 175 mcg DAILY06 PO 07/04/21 06:00 07/11/21 07:24 Al Hydroxide/Mg Hydroxide (Mylanta Plus Xs) 15 ml PRN AFTMEALHC PRN PO DYSPEPSIA 07/03/21 18:45 UNV Magnesium Oxide (Magnesium Oxide) 400 mg DAILY PO 07/04/21 09:00 07/11/21 09:00 Multi-Ingredient Ointment (Analgesic Lane) 1 swathi PRN QID PRN TP MUSCLE PAIN 07/03/21 18:45 UNV Mirtazapine (Remeron) 15 mg QHS PO 07/03/21 21:00 07/11/21 20:05 Risperidone (RisperDAL CONSTA) 25 mg Q2WKS IM 07/05/21 09:00 07/05/21 08:27 Spironolactone (Aldactone) 25 mg DAILY PO 07/04/21 09:00 07/11/21 09:25 Trazodone HCl (Desyrel) 25 mg DAILY PO 07/04/21 09:00 07/11/21 09:24 Trazodone HCl (Desyrel) 50 mg BID@1300,1700 PO 07/04/21 13:00 07/11/21 17:14 Betamethasone Dipropion Augmented (Betamethasone Dp Aug 0.05% Cream) 1 swathi PRN BID PRN TP RASH 07/03/21 19:15 Non-Formulary Medication (Eucalyptus Oil/ Menthol/Camphor (Vicks Vaporub Ointment)) 50 gm QHS TP 07/03/21 21:00 UNV Guaifenesin (Robitussin Dm) 10 ml PRN Q4HRS PRN PO COUGH 07/03/21 19:15 Insulin Human Lispro (HumaLOG) 28 units TIDWMEALS SQ 07/04/21 08:00 07/11/21 17:15 Insulin Glargine (Lantus Syringe) 40 unit BID SQ 07/03/21 21:00 07/11/21 21:46 Non-Formulary Medication (Magnesium Hydroxide (Milk Of Magnesia)) 2,400 mg PRN QHS PRN PO CONSTIPATION 07/03/21 18:45 UNV Pantoprazole Sodium (Protonix) 40 mg DAILY PO 07/04/21 09:00 07/11/21 09:26 Oxybutynin Chloride (Ditropan) 5 mg DAILY PO 07/04/21 09:00 07/11/21 09:24 Polyethylene Glycol (miraLAX) 17 gm PRN Q72HRS PRN PO 1ST CHOICE CONSTIPATION 07/03/21 19:15 Potassium Chloride (Klor-Con) 10 meq DAILY PO 07/04/21 09:00 07/04/21 08:42 DC Propranolol HCl (Inderal) 40 mg DAILY PO 07/04/21 09:00 07/11/21 09:25 Vitamin D (Vitamin D3) 2,000 unit DAILY PO 07/04/21 09:00 07/11/21 09:26 Potassium Chloride (Klor-Con) 20 meq BID PO 07/05/21 09:00 07/11/21 20:05 Potassium Chloride (Klor-Con) 40 meq 1X ONCE PO 07/04/21 08:45 07/04/21 08:46 DC 07/04/21 08:59 Potassium Chloride (Klor-Con) 40 meq 1X ONCE PO 07/04/21 09:45 07/04/21 09:46 DC 07/04/21 10:02 Potassium Chloride (Klor-Con) 40 meq 1X ONCE PO 07/04/21 10:45 07/04/21 10:46 DC 07/04/21 10:45 Divalproex Sodium (Depakote Sprinkles) 500 mg BID PO 07/07/21 09:00 07/10/21 16:07 DC 07/10/21 08:09 Divalproex Sodium (Depakote Sprinkles) 750 mg BID PO 07/10/21 21:00 07/11/21 20:05 I have reviewed the current psychotropics carefully including drug interactions. Risk benefit ratio favors no change other than as noted in my dictated progress note. Diagnosis: Problems: (1) Schizoaffective disorder, bipolar type (2) Mild cognitive impairment (3) Anxiety disorder, unspecified (4) Impulse disorder, unspecified (5) Bipolar disorder, curr episode mixed, severe, with psychotic features RAJIV VELAZQUEZ MD Jul 11, 2021 21:59
--- NOTE | 2021-07-12 02:31 | NUR ---
Nursing Note The patient remained in her room for the entirety of the shift. The patient was compliant with her medications and took them whole. The patient allowed this nurse to administer her insulin. The patient was alert to name date and location. The patient is currently sleeping in her room.
[2021-07-12] MEDS: LEVOTHYROXINE 175 MCG TABLET PO SCH (05:36)
[2021-07-12 06:07] VITALS: BP 120/74
[2021-07-12] MEDS: OXYBUTYNIN CHLORIDE 5 MG TABLET PO SCH (08:09)
[2021-07-12] MEDS: CHOLECALCIFEROL (VITAMIN D3) 1,000 UNIT TABLET PO SCH (08:09)
[2021-07-12] MEDS: PROPRANOLOL 20 MG TABLET. PO SCH (08:09)
[2021-07-12] MEDS: ASPIRIN ENTERIC COATED 81 MG TABLET.DR. PO SCH (08:09)
[2021-07-12] MEDS: PANTOPRAZOLE 40 MG TABLET. PO SCH (08:09)
[2021-07-12] MEDS: clonazePAM 0.5 MG TABLET PO SCH ×3 (08:09→20:51)
[2021-07-12] MEDS: FUROSEMIDE 40 MG TABLET PO SCH (08:10)
[2021-07-12] MEDS: POTASSIUM CHLORIDE 10 MEQ TABLET.ER. PO SCH ×2 (08:10→20:51)
[2021-07-12] MEDS: DIVALPROEX 125 MG CAP.SPRINK PO SCH ×2 (08:11→20:51)
[2021-07-12] MEDS: traZODone 50 MG TABLET. PO SCH ×3 (08:11→17:00)
[2021-07-12] MEDS: INSULIN LISPRO 300 UNITS/3 ML VIAL. SQ SCH ×3 (08:16→17:05)
[2021-07-12] MEDS: MAGNESIUM OXIDE 400 MG TABLET PO SCH (08:54)
[2021-07-12] MEDS: INSULIN GLARGINE SYRINGE. SQ SCH ×2 (09:21→20:54)
[2021-07-12] MEDS: SPIRONOLACTONE 25 MG TABLET PO SCH (09:21)
--- NOTE | 2021-07-12 09:50 | PDOC ---
Exam Note: Donte Note: This note is a late entry for 07/10/2021 covers elements not covered in my initial note. Subjective: The patient was seen face to face in the evening of 07/10/2021 with Shakira COPELAND, discussed and reviewed the chart. The patient slept 5 hours previous night. She has been agitated, yelling in the morning, wanting to watch television asking staff for tablet to play music on, then took a nap, was agitated, screaming, using profanities regarding being administered insulin. She was yelling at her walker being taken away by nursing staff. Valproic acid level is 46 subtherapeutic on Depakote 500 mg b.i.d. We will increase to 750 mg twice a day. Check labs level in 3 days including ammonia level. Adjust as clinically indicated. Review of Systems: Ambulation impaired. No CV, , pulmonary, eye, ENT system symptoms on review. Mental Status Exam: The patient is reasonably oriented. I met with her in her room. She was lying in bed, but verbally interactive. Speech coherent has some latency. Abstraction fair. Computation impaired. Language function intact. Mood and affect withdrawn. No suicidal or homicidal ideation. Laboratory Data: Reviewed. Impression: Schizo-affective disorder bipolar type mixed with psychotic features. Anxiety disorder unspecified. Impulse control disorder unspecified. Plan: Continue current psychotropics. Assessment: Vital Signs/I&O: Vital Signs Date Time Temp Pulse Resp B/P (MAP) Pulse Ox O2 Delivery O2 Flow Rate FiO2 07/12/21 08:09 87 120/74 07/12/21 06:07 99.0 20 91 07/08/21 05:41 Room Air I & O 07/11/21 07/11/21 07/12/21 15:00 23:00 07:00 Intake Total 360 ml 1080 ml Balance 360 ml 1080 ml Labs: Laboratory Tests Test 07/11/21 11:58 07/11/21 16:45 07/11/21 19:06 07/12/21 05:19 Glucose (Fingerstick) 238 mg/dL (70-99) H 145 mg/dL (70-99) H 184 mg/dL (70-99) H 108 mg/dL (70-99) H Test 07/12/21 07:45 Glucose (Fingerstick) 138 mg/dL (70-99) H Current Medications: Meds: Laboratory Tests Test 07/11/21 11:58 07/11/21 16:45 07/11/21 19:06 07/12/21 05:19 Glucose (Fingerstick) 238 mg/dL 145 mg/dL 184 mg/dL 108 mg/dL Test 07/12/21 07:45 Glucose (Fingerstick) 138 mg/dL Current Medications Medications (Trade) Dose Ordered Sig/Leonides Route PRN Reason Start Time Stop Time Status Last Admin Dose Admin Acetaminophen (Tylenol) 650 mg PRN Q6HRS PRN PO MILD PAIN / TEMP > 100.3'F 07/03/21 16:30 Cancel Multi-Ingredient Ointment (Analgesic [place]) 1 swathi PRN QID PRN TP MUSCLE PAIN 07/03/21 16:30 Al Hydroxide/Mg Hydroxide (Mylanta Plus Xs) 15 ml PRN AFTMEALHC PRN PO DYSPEPSIA 07/03/21 16:30 Magnesium Hydroxide (Milk Of Magnesia) 2,400 mg PRN QHS PRN PO 2ND CHOICE CONSTIPATION 07/03/21 16:30 Acetaminophen (Tylenol) 650 mg PRN Q4HRS PRN PO MILD PAIN / TEMP > 100.3'F 07/03/21 18:45 07/09/21 05:36 Aspirin (Aspirin Enteric Coated) 81 mg DAILY PO 07/04/21 09:00 07/12/21 08:09 Bisacodyl (Dulcolax Tab) 5 mg PRN DAILY PRN PO 3RD CHOICE CONSTIPATION 07/03/21 18:45 Clonazepam (KlonoPIN) 0.5 mg TID PO 07/03/21 21:00 07/12/21 08:09 Diclofenac Sodium (Voltaren) 1 swathi PRN Q6HRS PRN TP PAIN 07/03/21 18:45 Divalproex Sodium (Depakote Sprinkles) 250 mg BID PO 07/03/21 21:00 07/06/21 23:37 DC 07/06/21 20:18 Furosemide (Lasix) 40 mg DAILY PO 07/04/21 09:00 07/12/21 08:10 Ibuprofen (Motrin) 400 mg PRN Q6HRS PRN PO INFLAMMATION / TEMP > 100.3'F 07/03/21 18:45 Albuterol/ Ipratropium (Combivent Respimat 20-100 Mcg) 1 puff PRN BID PRN INH SHORTNESS OF BREATH 07/03/21 19:15 Levothyroxine Sodium (Synthroid) 175 mcg DAILY06 PO 07/04/21 06:00 07/12/21 05:36 Al Hydroxide/Mg Hydroxide (Mylanta Plus Xs) 15 ml PRN AFTMEALHC PRN PO DYSPEPSIA 07/03/21 18:45 UNV Magnesium Oxide (Magnesium Oxide) 400 mg DAILY PO 07/04/21 09:00 07/12/21 08:54 Multi-Ingredient Ointment (Analgesic [place]) 1 swathi PRN QID PRN TP MUSCLE PAIN 07/03/21 18:45 UNV Mirtazapine (Remeron) 15 mg QHS PO 07/03/21 21:00 07/11/21 20:05 Risperidone (RisperDAL CONSTA) 25 mg Q2WKS IM 07/05/21 09:00 07/05/21 08:27 Spironolactone (Aldactone) 25 mg DAILY PO 07/04/21 09:00 07/12/21 09:21 Trazodone HCl (Desyrel) 25 mg DAILY PO 07/04/21 09:00 07/12/21 08:11 Trazodone HCl (Desyrel) 50 mg BID@1300,1700 PO 07/04/21 13:00 07/11/21 17:14 Betamethasone Dipropion Augmented (Betamethasone Dp Aug 0.05% Cream) 1 swathi PRN BID PRN TP RASH 07/03/21 19:15 Non-Formulary Medication (Eucalyptus Oil/ Menthol/Camphor (Vicks Vaporub Ointment)) 50 gm QHS TP 07/03/21 21:00 UNV Guaifenesin (Robitussin Dm) 10 ml PRN Q4HRS PRN PO COUGH 07/03/21 19:15 Insulin Human Lispro (HumaLOG) 28 units TIDWMEALS SQ 07/04/21 08:00 07/12/21 08:16 Insulin Glargine (Lantus Syringe) 40 unit BID SQ 07/03/21 21:00 07/12/21 09:21 Non-Formulary Medication (Magnesium Hydroxide (Milk Of Magnesia)) 2,400 mg PRN QHS PRN PO CONSTIPATION 07/03/21 18:45 UNV Pantoprazole Sodium (Protonix) 40 mg DAILY PO 07/04/21 09:00 07/12/21 08:09 Oxybutynin Chloride (Ditropan) 5 mg DAILY PO 07/04/21 09:00 07/12/21 08:09 Polyethylene Glycol (miraLAX) 17 gm PRN Q72HRS PRN PO 1ST CHOICE CONSTIPATION 07/03/21 19:15 Potassium Chloride (Klor-Con) 10 meq DAILY PO 07/04/21 09:00 07/04/21 08:42 DC Propranolol HCl (Inderal) 40 mg DAILY PO 07/04/21 09:00 07/12/21 08:09 Vitamin D (Vitamin D3) 2,000 unit DAILY PO 07/04/21 09:00 07/12/21 08:09 Potassium Chloride (Klor-Con) 20 meq BID PO 07/05/21 09:00 07/12/21 08:10 Potassium Chloride (Klor-Con) 40 meq 1X ONCE PO 07/04/21 08:45 07/04/21 08:46 DC 07/04/21 08:59 Potassium Chloride (Klor-Con) 40 meq 1X ONCE PO 07/04/21 09:45 07/04/21 09:46 DC 07/04/21 10:02 Potassium Chloride (Klor-Con) 40 meq 1X ONCE PO 07/04/21 10:45 07/04/21 10:46 DC 07/04/21 10:45 Divalproex Sodium (Depakote Sprinkles) 500 mg BID PO 07/07/21 09:00 07/10/21 16:07 DC 07/10/21 08:09 Divalproex Sodium (Depakote Sprinkles) 750 mg BID PO 07/10/21 21:00 07/12/21 08:11 I have reviewed the current psychotropics carefully including drug interactions. Risk benefit ratio favors no change other than as noted in my dictated progress note. Diagnosis: Problems: (1) Schizoaffective disorder, bipolar type (2) Mild cognitive impairment (3) Anxiety disorder, unspecified (4) Impulse disorder, unspecified (5) Bipolar disorder, curr episode mixed, severe, with psychotic features RAJIV VELAZQUEZ MD Jul 12, 2021 09:50
--- NOTE | 2021-07-12 10:02 | PDOC ---
Exam Note: Donte Note: This note is a late entry for 07/11/2021 covers elements not covered in my initial note. Subjective: The patient was reviewed at treatment team meeting individually in the morning on 07/11/2021 with Reyna Mccoy, Marixa Haider (addiction social worker), Tg, activity therapy and Shakira COPELAND, discussed and reviewed the chart. The patient slept 7-1/4 hours previous night. She has been compliant with medications. Her screaming has been less though this was quite prominent last week. She screams when she is administered insulin, wanting a walker though she can ambulate without it and I addressed this with her. Review of Systems: Ambulation impaired. No CV, , pulmonary, eye, ENT system symptoms on review. Mental Status Exam: The patient is reasonably oriented. Speech coherent has some latency. Abstraction fair. Computation impaired. Language function intact. Mood and affect less paranoid, agitated. Laboratory Data: Reviewed. Impression: Schizo-affective disorder bipolar type mixed with psychotic features. Anxiety disorder unspecified. Impulse control disorder unspecified. Plan: Continue current psychotropics. Assessment: Vital Signs/I&O: Vital Signs Date Time Temp Pulse Resp B/P (MAP) Pulse Ox O2 Delivery O2 Flow Rate FiO2 07/12/21 08:09 87 120/74 07/12/21 06:07 99.0 20 91 07/08/21 05:41 Room Air I & O 07/11/21 07/11/21 07/12/21 15:00 23:00 07:00 Intake Total 360 ml 1080 ml Balance 360 ml 1080 ml Labs: Laboratory Tests Test 07/11/21 11:58 07/11/21 16:45 07/11/21 19:06 07/12/21 05:19 Glucose (Fingerstick) 238 mg/dL (70-99) H 145 mg/dL (70-99) H 184 mg/dL (70-99) H 108 mg/dL (70-99) H Test 07/12/21 07:45 Glucose (Fingerstick) 138 mg/dL (70-99) H Current Medications: Meds: Laboratory Tests Test 07/11/21 11:58 07/11/21 16:45 07/11/21 19:06 07/12/21 05:19 Glucose (Fingerstick) 238 mg/dL 145 mg/dL 184 mg/dL 108 mg/dL Test 07/12/21 07:45 Glucose (Fingerstick) 138 mg/dL Current Medications Medications (Trade) Dose Ordered Sig/Leonides Route PRN Reason Start Time Stop Time Status Last Admin Dose Admin Acetaminophen (Tylenol) 650 mg PRN Q6HRS PRN PO MILD PAIN / TEMP > 100.3'F 07/03/21 16:30 Cancel Multi-Ingredient Ointment (Analgesic [place]) 1 swathi PRN QID PRN TP MUSCLE PAIN 07/03/21 16:30 Al Hydroxide/Mg Hydroxide (Mylanta Plus Xs) 15 ml PRN AFTMEALHC PRN PO DYSPEPSIA 07/03/21 16:30 Magnesium Hydroxide (Milk Of Magnesia) 2,400 mg PRN QHS PRN PO 2ND CHOICE CONSTIPATION 07/03/21 16:30 Acetaminophen (Tylenol) 650 mg PRN Q4HRS PRN PO MILD PAIN / TEMP > 100.3'F 07/03/21 18:45 07/09/21 05:36 Aspirin (Aspirin Enteric Coated) 81 mg DAILY PO 07/04/21 09:00 07/12/21 08:09 Bisacodyl (Dulcolax Tab) 5 mg PRN DAILY PRN PO 3RD CHOICE CONSTIPATION 07/03/21 18:45 Clonazepam (KlonoPIN) 0.5 mg TID PO 07/03/21 21:00 07/12/21 08:09 Diclofenac Sodium (Voltaren) 1 swathi PRN Q6HRS PRN TP PAIN 07/03/21 18:45 Divalproex Sodium (Depakote Sprinkles) 250 mg BID PO 07/03/21 21:00 07/06/21 23:37 DC 07/06/21 20:18 Furosemide (Lasix) 40 mg DAILY PO 07/04/21 09:00 07/12/21 08:10 Ibuprofen (Motrin) 400 mg PRN Q6HRS PRN PO INFLAMMATION / TEMP > 100.3'F 07/03/21 18:45 Albuterol/ Ipratropium (Combivent Respimat 20-100 Mcg) 1 puff PRN BID PRN INH SHORTNESS OF BREATH 07/03/21 19:15 Levothyroxine Sodium (Synthroid) 175 mcg DAILY06 PO 07/04/21 06:00 07/12/21 05:36 Al Hydroxide/Mg Hydroxide (Mylanta Plus Xs) 15 ml PRN AFTMEALHC PRN PO DYSPEPSIA 07/03/21 18:45 UNV Magnesium Oxide (Magnesium Oxide) 400 mg DAILY PO 07/04/21 09:00 07/12/21 08:54 Multi-Ingredient Ointment (Analgesic [place]) 1 swathi PRN QID PRN TP MUSCLE PAIN 07/03/21 18:45 UNV Mirtazapine (Remeron) 15 mg QHS PO 07/03/21 21:00 07/11/21 20:05 Risperidone (RisperDAL CONSTA) 25 mg Q2WKS IM 07/05/21 09:00 07/05/21 08:27 Spironolactone (Aldactone) 25 mg DAILY PO 07/04/21 09:00 07/12/21 09:21 Trazodone HCl (Desyrel) 25 mg DAILY PO 07/04/21 09:00 07/12/21 08:11 Trazodone HCl (Desyrel) 50 mg BID@1300,1700 PO 07/04/21 13:00 07/11/21 17:14 Betamethasone Dipropion Augmented (Betamethasone Dp Aug 0.05% Cream) 1 swathi PRN BID PRN TP RASH 07/03/21 19:15 Non-Formulary Medication (Eucalyptus Oil/ Menthol/Camphor (Vicks Vaporub Ointment)) 50 gm QHS TP 07/03/21 21:00 UNV Guaifenesin (Robitussin Dm) 10 ml PRN Q4HRS PRN PO COUGH 07/03/21 19:15 Insulin Human Lispro (HumaLOG) 28 units TIDWMEALS SQ 07/04/21 08:00 07/12/21 08:16 Insulin Glargine (Lantus Syringe) 40 unit BID SQ 07/03/21 21:00 07/12/21 09:21 Non-Formulary Medication (Magnesium Hydroxide (Milk Of Magnesia)) 2,400 mg PRN QHS PRN PO CONSTIPATION 07/03/21 18:45 UNV Pantoprazole Sodium (Protonix) 40 mg DAILY PO 07/04/21 09:00 07/12/21 08:09 Oxybutynin Chloride (Ditropan) 5 mg DAILY PO 07/04/21 09:00 07/12/21 08:09 Polyethylene Glycol (miraLAX) 17 gm PRN Q72HRS PRN PO 1ST CHOICE CONSTIPATION 07/03/21 19:15 Potassium Chloride (Klor-Con) 10 meq DAILY PO 07/04/21 09:00 07/04/21 08:42 DC Propranolol HCl (Inderal) 40 mg DAILY PO 07/04/21 09:00 07/12/21 08:09 Vitamin D (Vitamin D3) 2,000 unit DAILY PO 07/04/21 09:00 07/12/21 08:09 Potassium Chloride (Klor-Con) 20 meq BID PO 07/05/21 09:00 07/12/21 08:10 Potassium Chloride (Klor-Con) 40 meq 1X ONCE PO 07/04/21 08:45 07/04/21 08:46 DC 07/04/21 08:59 Potassium Chloride (Klor-Con) 40 meq 1X ONCE PO 07/04/21 09:45 07/04/21 09:46 DC 07/04/21 10:02 Potassium Chloride (Klor-Con) 40 meq 1X ONCE PO 07/04/21 10:45 07/04/21 10:46 DC 07/04/21 10:45 Divalproex Sodium (Depakote Sprinkles) 500 mg BID PO 07/07/21 09:00 07/10/21 16:07 DC 07/10/21 08:09 Divalproex Sodium (Depakote Sprinkles) 750 mg BID PO 07/10/21 21:00 07/12/21 08:11 I have reviewed the current psychotropics carefully including drug interactions. Risk benefit ratio favors no change other than as noted in my dictated progress note. Diagnosis: Problems: (1) Schizoaffective disorder, bipolar type (2) Mild cognitive impairment (3) Anxiety disorder, unspecified (4) Impulse disorder, unspecified (5) Bipolar disorder, curr episode mixed, severe, with psychotic features RAJIV VELAZQUEZ MD Jul 12, 2021 10:02
[2021-07-12 16:35] VITALS: BP 123/69
--- NOTE | 2021-07-12 17:47 | NUR ---
Nsg Note; Hien has been calm, cooperative and pleasant today. she sits in the hallway by herself, preferring not to talk with other patients. she took an afternoon nap and has been med compliant today, taking her meds whole
[2021-07-12] MEDS: MIRTAZAPINE 15 MG TABLET PO SCH (20:51)
--- NOTE | 2021-07-12 22:09 | PDOC ---
Exam Note: Donte Note: Please also refer to the separate dictated note~for this date of service dictated separately.~Patient seen individually. Discussed the patient with Nursing staff reviewed the chart.~Reviewed interim history and current functioning. Reviewed vital signs,~Labs/ Radiology~and current medications noted below. Continue current treatment with the changes noted in the dictated addendum note Assessment: Vital Signs/I&O: Vital Signs Date Time Temp Pulse Resp B/P (MAP) Pulse Ox O2 Delivery O2 Flow Rate FiO2 07/12/21 16:35 98.5 81 16 123/69 (87) 93 07/08/21 05:41 Room Air I & O 07/11/21 07/11/21 07/12/21 15:00 23:00 07:00 Intake Total 360 ml 1080 ml Balance 360 ml 1080 ml Labs: Laboratory Tests Test 07/12/21 05:19 07/12/21 07:45 07/12/21 12:11 07/12/21 16:57 Glucose (Fingerstick) 108 mg/dL (70-99) H 138 mg/dL (70-99) H 174 mg/dL (70-99) H 181 mg/dL (70-99) H Test 07/12/21 19:10 Glucose (Fingerstick) 197 mg/dL (70-99) H Current Medications: Meds: Laboratory Tests Test 07/12/21 05:19 07/12/21 07:45 07/12/21 12:11 07/12/21 16:57 Glucose (Fingerstick) 108 mg/dL 138 mg/dL 174 mg/dL 181 mg/dL Test 07/12/21 19:10 Glucose (Fingerstick) 197 mg/dL Current Medications Medications (Trade) Dose Ordered Sig/Leonides Route PRN Reason Start Time Stop Time Status Last Admin Dose Admin Acetaminophen (Tylenol) 650 mg PRN Q6HRS PRN PO MILD PAIN / TEMP > 100.3'F 07/03/21 16:30 Cancel Multi-Ingredient Ointment (Analgesic [place]) 1 swathi PRN QID PRN TP MUSCLE PAIN 07/03/21 16:30 Al Hydroxide/Mg Hydroxide (Mylanta Plus Xs) 15 ml PRN AFTMEALHC PRN PO DYSPEPSIA 07/03/21 16:30 Magnesium Hydroxide (Milk Of Magnesia) 2,400 mg PRN QHS PRN PO 2ND CHOICE CONSTIPATION 07/03/21 16:30 Acetaminophen (Tylenol) 650 mg PRN Q4HRS PRN PO MILD PAIN / TEMP > 100.3'F 07/03/21 18:45 07/09/21 05:36 Aspirin (Aspirin Enteric Coated) 81 mg DAILY PO 07/04/21 09:00 07/12/21 08:09 Bisacodyl (Dulcolax Tab) 5 mg PRN DAILY PRN PO 3RD CHOICE CONSTIPATION 07/03/21 18:45 Clonazepam (KlonoPIN) 0.5 mg TID PO 07/03/21 21:00 07/12/21 20:51 Diclofenac Sodium (Voltaren) 1 swathi PRN Q6HRS PRN TP PAIN 07/03/21 18:45 Divalproex Sodium (Depakote Sprinkles) 250 mg BID PO 07/03/21 21:00 07/06/21 23:37 DC 07/06/21 20:18 Furosemide (Lasix) 40 mg DAILY PO 07/04/21 09:00 07/12/21 08:10 Ibuprofen (Motrin) 400 mg PRN Q6HRS PRN PO INFLAMMATION / TEMP > 100.3'F 07/03/21 18:45 Albuterol/ Ipratropium (Combivent Respimat 20-100 Mcg) 1 puff PRN BID PRN INH SHORTNESS OF BREATH 07/03/21 19:15 Levothyroxine Sodium (Synthroid) 175 mcg DAILY06 PO 07/04/21 06:00 07/12/21 05:36 Al Hydroxide/Mg Hydroxide (Mylanta Plus Xs) 15 ml PRN AFTMEALHC PRN PO DYSPEPSIA 07/03/21 18:45 UNV Magnesium Oxide (Magnesium Oxide) 400 mg DAILY PO 07/04/21 09:00 07/12/21 08:54 Multi-Ingredient Ointment (Analgesic [place]) 1 swathi PRN QID PRN TP MUSCLE PAIN 07/03/21 18:45 UNV Mirtazapine (Remeron) 15 mg QHS PO 07/03/21 21:00 07/12/21 20:51 Risperidone (RisperDAL [place]) 25 mg Q2WKS IM 07/05/21 09:00 07/05/21 08:27 Spironolactone (Aldactone) 25 mg DAILY PO 07/04/21 09:00 07/12/21 09:21 Trazodone HCl (Desyrel) 25 mg DAILY PO 07/04/21 09:00 07/12/21 08:11 Trazodone HCl (Desyrel) 50 mg BID@1300,1700 PO 07/04/21 13:00 07/12/21 17:00 Betamethasone Dipropion Augmented (Betamethasone Dp Aug 0.05% Cream) 1 swathi PRN BID PRN TP RASH 07/03/21 19:15 Non-Formulary Medication (Eucalyptus Oil/ Menthol/Camphor (Vicks Vaporub Ointment)) 50 gm QHS TP 07/03/21 21:00 UNV Guaifenesin (Robitussin Dm) 10 ml PRN Q4HRS PRN PO COUGH 07/03/21 19:15 Insulin Human Lispro (HumaLOG) 28 units TIDWMEALS SQ 07/04/21 08:00 07/12/21 17:05 Insulin Glargine (Lantus Syringe) 40 unit BID SQ 07/03/21 21:00 07/12/21 20:54 Non-Formulary Medication (Magnesium Hydroxide (Milk Of Magnesia)) 2,400 mg PRN QHS PRN PO CONSTIPATION 07/03/21 18:45 UNV Pantoprazole Sodium (Protonix) 40 mg DAILY PO 07/04/21 09:00 07/12/21 08:09 Oxybutynin Chloride (Ditropan) 5 mg DAILY PO 07/04/21 09:00 07/12/21 08:09 Polyethylene Glycol (miraLAX) 17 gm PRN Q72HRS PRN PO 1ST CHOICE CONSTIPATION 07/03/21 19:15 Potassium Chloride (Klor-Con) 10 meq DAILY PO 07/04/21 09:00 07/04/21 08:42 DC Propranolol HCl (Inderal) 40 mg DAILY PO 07/04/21 09:00 07/12/21 08:09 Vitamin D (Vitamin D3) 2,000 unit DAILY PO 07/04/21 09:00 07/12/21 08:09 Potassium Chloride (Klor-Con) 20 meq BID PO 07/05/21 09:00 07/12/21 20:51 Potassium Chloride (Klor-Con) 40 meq 1X ONCE PO 07/04/21 08:45 07/04/21 08:46 DC 07/04/21 08:59 Potassium Chloride (Klor-Con) 40 meq 1X ONCE PO 07/04/21 09:45 07/04/21 09:46 DC 07/04/21 10:02 Potassium Chloride (Klor-Con) 40 meq 1X ONCE PO 07/04/21 10:45 07/04/21 10:46 DC 07/04/21 10:45 Divalproex Sodium (Depakote Sprinkles) 500 mg BID PO 07/07/21 09:00 07/10/21 16:07 DC 07/10/21 08:09 Divalproex Sodium (Depakote Sprinkles) 750 mg BID PO 07/10/21 21:00 07/12/21 20:51 I have reviewed the current psychotropics carefully including drug interactions. Risk benefit ratio favors no change other than as noted in my dictated progress note. Diagnosis: Problems: (1) Schizoaffective disorder, bipolar type (2) Mild cognitive impairment (3) Anxiety disorder, unspecified (4) Impulse disorder, unspecified (5) Bipolar disorder, curr episode mixed, severe, with psychotic features RAJIV VELAZQUEZ MD Jul 12, 2021 22:09
--- NOTE | 2021-07-12 23:52 | NUR ---
Patient is located in her room on assumption of care, awake in bed. She is flat, depressed. Compliant with assessments and medications whole. Denies SI, denies any pain or discomfort. No agitation. Patient appears to be sleeping comfortably at present time. Will continue to monitor.
[2021-07-13] MEDS: LEVOTHYROXINE 175 MCG TABLET PO SCH (05:33)
[2021-07-13 06:11] VITALS: BP 122/73
[2021-07-13] MEDS: OXYBUTYNIN CHLORIDE 5 MG TABLET PO SCH (08:21)
[2021-07-13] MEDS: PANTOPRAZOLE 40 MG TABLET. PO SCH (08:21)
[2021-07-13] MEDS: SPIRONOLACTONE 25 MG TABLET PO SCH (08:22)
[2021-07-13] MEDS: PROPRANOLOL 20 MG TABLET. PO SCH (08:22)
[2021-07-13] MEDS: ASPIRIN ENTERIC COATED 81 MG TABLET.DR. PO SCH (08:22)
[2021-07-13] MEDS: POTASSIUM CHLORIDE 10 MEQ TABLET.ER. PO SCH ×2 (08:22→20:11)
[2021-07-13] MEDS: FUROSEMIDE 40 MG TABLET PO SCH (08:22)
[2021-07-13] MEDS: traZODone 50 MG TABLET. PO SCH ×3 (08:23→17:08)
[2021-07-13] MEDS: DIVALPROEX 125 MG CAP.SPRINK PO SCH ×2 (08:23→20:11)
[2021-07-13] MEDS: MAGNESIUM OXIDE 400 MG TABLET PO SCH (08:23)
[2021-07-13] MEDS: CHOLECALCIFEROL (VITAMIN D3) 1,000 UNIT TABLET PO SCH (08:23)
[2021-07-13] MEDS: clonazePAM 0.5 MG TABLET PO SCH ×3 (08:23→20:10)
[2021-07-13] MEDS: INSULIN LISPRO 300 UNITS/3 ML VIAL. SQ SCH ×3 (08:27→17:11)
[2021-07-13] MEDS: INSULIN GLARGINE SYRINGE. SQ SCH ×2 (10:13→20:09)
[2021-07-13 15:31] VITALS: BP 100/68
[2021-07-13] MEDS: MIRTAZAPINE 15 MG TABLET PO SCH (20:10)
--- NOTE | 2021-07-13 22:00 | PDOC ---
Exam Note: Donte Note: Please also refer to the separate dictated note~for this date of service dictated separately.~Patient seen individually. Discussed the patient with Nursing staff reviewed the chart.~Reviewed interim history and current functioning. Reviewed vital signs,~Labs/ Radiology~and current medications noted below. Continue current treatment with the changes noted in the dictated addendum note Assessment: Vital Signs/I&O: Vital Signs Date Time Temp Pulse Resp B/P (MAP) Pulse Ox O2 Delivery O2 Flow Rate FiO2 07/13/21 15:31 98.1 74 20 100/68 (79) 94 07/08/21 05:41 Room Air I & O 07/12/21 07/12/21 07/13/21 15:00 23:00 07:00 Intake Total 720 ml 360 ml Balance 720 ml 360 ml Labs: Laboratory Tests Test 07/13/21 07:25 07/13/21 11:20 07/13/21 16:41 07/13/21 20:19 Glucose (Fingerstick) 147 mg/dL (70-99) H 264 mg/dL (70-99) H 277 mg/dL (70-99) H 262 mg/dL (70-99) H Current Medications: Meds: Laboratory Tests Test 07/13/21 07:25 07/13/21 11:20 07/13/21 16:41 07/13/21 20:19 Glucose (Fingerstick) 147 mg/dL 264 mg/dL 277 mg/dL 262 mg/dL Current Medications Medications (Trade) Dose Ordered Sig/Leonides Route PRN Reason Start Time Stop Time Status Last Admin Dose Admin Acetaminophen (Tylenol) 650 mg PRN Q6HRS PRN PO MILD PAIN / TEMP > 100.3'F 07/03/21 16:30 Cancel Multi-Ingredient Ointment (Analgesic [place]) 1 swathi PRN QID PRN TP MUSCLE PAIN 07/03/21 16:30 Al Hydroxide/Mg Hydroxide (Mylanta Plus Xs) 15 ml PRN AFTMEALHC PRN PO DYSPEPSIA 07/03/21 16:30 Magnesium Hydroxide (Milk Of Magnesia) 2,400 mg PRN QHS PRN PO 2ND CHOICE CONSTIPATION 07/03/21 16:30 Acetaminophen (Tylenol) 650 mg PRN Q4HRS PRN PO MILD PAIN / TEMP > 100.3'F 07/03/21 18:45 07/09/21 05:36 Aspirin (Aspirin Enteric Coated) 81 mg DAILY PO 07/04/21 09:00 07/13/21 08:22 Bisacodyl (Dulcolax Tab) 5 mg PRN DAILY PRN PO 3RD CHOICE CONSTIPATION 07/03/21 18:45 Clonazepam (KlonoPIN) 0.5 mg TID PO 07/03/21 21:00 07/13/21 20:10 Diclofenac Sodium (Voltaren) 1 swathi PRN Q6HRS PRN TP PAIN 07/03/21 18:45 Divalproex Sodium (Depakote Sprinkles) 250 mg BID PO 07/03/21 21:00 07/06/21 23:37 DC 07/06/21 20:18 Furosemide (Lasix) 40 mg DAILY PO 07/04/21 09:00 07/13/21 08:22 Ibuprofen (Motrin) 400 mg PRN Q6HRS PRN PO INFLAMMATION / TEMP > 100.3'F 07/03/21 18:45 Albuterol/ Ipratropium (Combivent Respimat 20-100 Mcg) 1 puff PRN BID PRN INH SHORTNESS OF BREATH 07/03/21 19:15 Levothyroxine Sodium (Synthroid) 175 mcg DAILY06 PO 07/04/21 06:00 07/13/21 05:33 Al Hydroxide/Mg Hydroxide (Mylanta Plus Xs) 15 ml PRN AFTMEALHC PRN PO DYSPEPSIA 07/03/21 18:45 UNV Magnesium Oxide (Magnesium Oxide) 400 mg DAILY PO 07/04/21 09:00 07/13/21 08:23 Multi-Ingredient Ointment (Analgesic [place]) 1 swathi PRN QID PRN TP MUSCLE PAIN 07/03/21 18:45 UNV Mirtazapine (Remeron) 15 mg QHS PO 07/03/21 21:00 07/13/21 20:10 Risperidone (RisperDAL CONSTA) 25 mg Q2WKS IM 07/05/21 09:00 07/05/21 08:27 Spironolactone (Aldactone) 25 mg DAILY PO 07/04/21 09:00 07/13/21 08:22 Trazodone HCl (Desyrel) 25 mg DAILY PO 07/04/21 09:00 07/13/21 08:23 Trazodone HCl (Desyrel) 50 mg BID@1300,1700 PO 07/04/21 13:00 07/13/21 17:08 Betamethasone Dipropion Augmented (Betamethasone Dp Aug 0.05% Cream) 1 swathi PRN BID PRN TP RASH 07/03/21 19:15 Non-Formulary Medication (Eucalyptus Oil/ Menthol/Camphor (Vicks Vaporub Ointment)) 50 gm QHS TP 07/03/21 21:00 UNV Guaifenesin (Robitussin Dm) 10 ml PRN Q4HRS PRN PO COUGH 07/03/21 19:15 Insulin Human Lispro (HumaLOG) 28 units TIDWMEALS SQ 07/04/21 08:00 07/13/21 17:11 Insulin Glargine (Lantus Syringe) 40 unit BID SQ 07/03/21 21:00 07/13/21 20:09 Non-Formulary Medication (Magnesium Hydroxide (Milk Of Magnesia)) 2,400 mg PRN QHS PRN PO CONSTIPATION 07/03/21 18:45 UNV Pantoprazole Sodium (Protonix) 40 mg DAILY PO 07/04/21 09:00 07/13/21 08:21 Oxybutynin Chloride (Ditropan) 5 mg DAILY PO 07/04/21 09:00 07/13/21 08:21 Polyethylene Glycol (miraLAX) 17 gm PRN Q72HRS PRN PO 1ST CHOICE CONSTIPATION 07/03/21 19:15 Potassium Chloride (Klor-Con) 10 meq DAILY PO 07/04/21 09:00 07/04/21 08:42 DC Propranolol HCl (Inderal) 40 mg DAILY PO 07/04/21 09:00 07/13/21 08:22 Vitamin D (Vitamin D3) 2,000 unit DAILY PO 07/04/21 09:00 07/13/21 08:23 Potassium Chloride (Klor-Con) 20 meq BID PO 07/05/21 09:00 07/13/21 20:11 Potassium Chloride (Klor-Con) 40 meq 1X ONCE PO 07/04/21 08:45 07/04/21 08:46 DC 07/04/21 08:59 Potassium Chloride (Klor-Con) 40 meq 1X ONCE PO 07/04/21 09:45 07/04/21 09:46 DC 07/04/21 10:02 Potassium Chloride (Klor-Con) 40 meq 1X ONCE PO 07/04/21 10:45 07/04/21 10:46 DC 07/04/21 10:45 Divalproex Sodium (Depakote Sprinkles) 500 mg BID PO 07/07/21 09:00 07/10/21 16:07 DC 07/10/21 08:09 Divalproex Sodium (Depakote Sprinkles) 750 mg BID PO 07/10/21 21:00 07/13/21 20:11 I have reviewed the current psychotropics carefully including drug interactions. Risk benefit ratio favors no change other than as noted in my dictated progress note. Diagnosis: Problems: (1) Schizoaffective disorder, bipolar type (2) Mild cognitive impairment (3) Anxiety disorder, unspecified (4) Impulse disorder, unspecified (5) Bipolar disorder, curr episode mixed, severe, with psychotic features RAJIV VELAZQUEZ MD Jul 13, 2021 22:00
--- NOTE | 2021-07-13 22:20 | NUR ---
Patient is located in her room on assumption of care, awake in bed. She is flat, depressed. Pleasant and appropriate in her interactions with this nurse. Compliant with assessments and medications whole. Denies SI, denies any pain or discomfort. No agitation. Patient appears to be sleeping comfortably at present time. Will continue to monitor.
--- NOTE | 2021-07-13 23:59 | PDOC ---
Exam Note: Donte Note: This note is a late entry for 07/12/2021 covers elements not covered in my initial note. Subjective: The patient was seen face to face in the evening of 07/12/2021 with Pardeep COPELAND, discussed and reviewed the chart. The patient slept 5-3/4 hours previous night. She has been cooperative, somewhat withdrawn. Mood seems better. Review of Systems: Ambulation impaired. No CV, , pulmonary, eye, ENT system symptoms on review. Mental Status Exam: The patient is reasonably oriented. I met with her in her room. Speech coherent. Abstraction fair. Computation impaired. Language function intact. Mood and affect withdrawn. No suicidal or homicidal ideation. Laboratory Data: Reviewed. Impression: Schizo-affective disorder bipolar type mixed with psychotic features. Anxiety disorder unspecified. Impulse control disorder unspecified. Plan: Continue current psychotropics. Assessment: Vital Signs/I&O: Vital Signs Date Time Temp Pulse Resp B/P (MAP) Pulse Ox O2 Delivery O2 Flow Rate FiO2 07/13/21 15:31 98.1 74 20 100/68 (79) 94 07/08/21 05:41 Room Air I & O 07/12/21 07/12/21 07/13/21 15:00 23:00 07:00 Intake Total 720 ml 360 ml Balance 720 ml 360 ml Labs: Laboratory Tests Test 07/13/21 07:25 07/13/21 11:20 07/13/21 16:41 07/13/21 20:19 Glucose (Fingerstick) 147 mg/dL (70-99) H 264 mg/dL (70-99) H 277 mg/dL (70-99) H 262 mg/dL (70-99) H Current Medications: Meds: Laboratory Tests Test 07/13/21 07:25 07/13/21 11:20 07/13/21 16:41 07/13/21 20:19 Glucose (Fingerstick) 147 mg/dL 264 mg/dL 277 mg/dL 262 mg/dL Current Medications Medications (Trade) Dose Ordered Sig/Leonides Route PRN Reason Start Time Stop Time Status Last Admin Dose Admin Acetaminophen (Tylenol) 650 mg PRN Q6HRS PRN PO MILD PAIN / TEMP > 100.3'F 07/03/21 16:30 Cancel Multi-Ingredient Ointment (Analgesic [place]) 1 swathi PRN QID PRN TP MUSCLE PAIN 07/03/21 16:30 Al Hydroxide/Mg Hydroxide (Mylanta Plus Xs) 15 ml PRN AFTMEALHC PRN PO DYSPEPSIA 07/03/21 16:30 Magnesium Hydroxide (Milk Of Magnesia) 2,400 mg PRN QHS PRN PO 2ND CHOICE CONSTIPATION 07/03/21 16:30 Acetaminophen (Tylenol) 650 mg PRN Q4HRS PRN PO MILD PAIN / TEMP > 100.3'F 07/03/21 18:45 07/09/21 05:36 Aspirin (Aspirin Enteric Coated) 81 mg DAILY PO 07/04/21 09:00 07/13/21 08:22 Bisacodyl (Dulcolax Tab) 5 mg PRN DAILY PRN PO 3RD CHOICE CONSTIPATION 07/03/21 18:45 Clonazepam (KlonoPIN) 0.5 mg TID PO 07/03/21 21:00 07/13/21 20:10 Diclofenac Sodium (Voltaren) 1 swathi PRN Q6HRS PRN TP PAIN 07/03/21 18:45 Divalproex Sodium (Depakote Sprinkles) 250 mg BID PO 07/03/21 21:00 07/06/21 23:37 DC 07/06/21 20:18 Furosemide (Lasix) 40 mg DAILY PO 07/04/21 09:00 07/13/21 08:22 Ibuprofen (Motrin) 400 mg PRN Q6HRS PRN PO INFLAMMATION / TEMP > 100.3'F 07/03/21 18:45 Albuterol/ Ipratropium (Combivent Respimat 20-100 Mcg) 1 puff PRN BID PRN INH SHORTNESS OF BREATH 07/03/21 19:15 Levothyroxine Sodium (Synthroid) 175 mcg DAILY06 PO 07/04/21 06:00 07/13/21 05:33 Al Hydroxide/Mg Hydroxide (Mylanta Plus Xs) 15 ml PRN AFTMEALHC PRN PO DYSPEPSIA 07/03/21 18:45 UNV Magnesium Oxide (Magnesium Oxide) 400 mg DAILY PO 07/04/21 09:00 07/13/21 08:23 Multi-Ingredient Ointment (Analgesic [place]) 1 swathi PRN QID PRN TP MUSCLE PAIN 07/03/21 18:45 UNV Mirtazapine (Remeron) 15 mg QHS PO 07/03/21 21:00 07/13/21 20:10 Risperidone (RisperDAL CONSTA) 25 mg Q2WKS IM 07/05/21 09:00 07/05/21 08:27 Spironolactone (Aldactone) 25 mg DAILY PO 07/04/21 09:00 07/13/21 08:22 Trazodone HCl (Desyrel) 25 mg DAILY PO 07/04/21 09:00 07/13/21 08:23 Trazodone HCl (Desyrel) 50 mg BID@1300,1700 PO 07/04/21 13:00 07/13/21 17:08 Betamethasone Dipropion Augmented (Betamethasone Dp Aug 0.05% Cream) 1 swathi PRN BID PRN TP RASH 07/03/21 19:15 Non-Formulary Medication (Eucalyptus Oil/ Menthol/Camphor (Vicks Vaporub Ointment)) 50 gm QHS TP 07/03/21 21:00 UNV Guaifenesin (Robitussin Dm) 10 ml PRN Q4HRS PRN PO COUGH 07/03/21 19:15 Insulin Human Lispro (HumaLOG) 28 units TIDWMEALS SQ 07/04/21 08:00 07/13/21 17:11 Insulin Glargine (Lantus Syringe) 40 unit BID SQ 07/03/21 21:00 07/13/21 20:09 Non-Formulary Medication (Magnesium Hydroxide (Milk Of Magnesia)) 2,400 mg PRN QHS PRN PO CONSTIPATION 07/03/21 18:45 UNV Pantoprazole Sodium (Protonix) 40 mg DAILY PO 07/04/21 09:00 07/13/21 08:21 Oxybutynin Chloride (Ditropan) 5 mg DAILY PO 07/04/21 09:00 07/13/21 08:21 Polyethylene Glycol (miraLAX) 17 gm PRN Q72HRS PRN PO 1ST CHOICE CONSTIPATION 07/03/21 19:15 Potassium Chloride (Klor-Con) 10 meq DAILY PO 07/04/21 09:00 07/04/21 08:42 DC Propranolol HCl (Inderal) 40 mg DAILY PO 07/04/21 09:00 9/4/21 08:22 Vitamin D (Vitamin D3) 2,000 unit DAILY PO 07/04/21 09:00 07/13/21 08:23 Potassium Chloride (Klor-Con) 20 meq BID PO 07/05/21 09:00 07/13/21 20:11 Potassium Chloride (Klor-Con) 40 meq 1X ONCE PO 07/04/21 08:45 07/04/21 08:46 DC 07/04/21 08:59 Potassium Chloride (Klor-Con) 40 meq 1X ONCE PO 07/04/21 09:45 07/04/21 09:46 DC 07/04/21 10:02 Potassium Chloride (Klor-Con) 40 meq 1X ONCE PO 07/04/21 10:45 07/04/21 10:46 DC 07/04/21 10:45 Divalproex Sodium (Depakote Sprinkles) 500 mg BID PO 07/07/21 09:00 07/10/21 16:07 DC 07/10/21 08:09 Divalproex Sodium (Depakote Sprinkles) 750 mg BID PO 07/10/21 21:00 07/13/21 20:11 I have reviewed the current psychotropics carefully including drug interactions. Risk benefit ratio favors no change other than as noted in my dictated progress note. Diagnosis: Problems: (1) Schizoaffective disorder, bipolar type (2) Mild cognitive impairment (3) Anxiety disorder, unspecified (4) Impulse disorder, unspecified (5) Bipolar disorder, curr episode mixed, severe, with psychotic features RAJIV VELAZQUEZ MD Jul 13, 2021 23:58
[2021-07-14] MEDS: LEVOTHYROXINE 175 MCG TABLET PO SCH (05:34)
[2021-07-14 06:09] VITALS: BP 140/79
[2021-07-14 06:13] VITALS: BP 162/74
[2021-07-14] MEDS: FUROSEMIDE 40 MG TABLET PO SCH (08:35)
[2021-07-14] MEDS: PANTOPRAZOLE 40 MG TABLET. PO SCH (08:35)
[2021-07-14] MEDS: OXYBUTYNIN CHLORIDE 5 MG TABLET PO SCH (08:35)
[2021-07-14] MEDS: ASPIRIN ENTERIC COATED 81 MG TABLET.DR. PO SCH (08:35)
[2021-07-14] MEDS: DIVALPROEX 125 MG CAP.SPRINK PO SCH ×2 (08:36→19:48)
[2021-07-14] MEDS: POTASSIUM CHLORIDE 10 MEQ TABLET.ER. PO SCH ×2 (08:36→19:47)
[2021-07-14] MEDS: SPIRONOLACTONE 25 MG TABLET PO SCH (08:36)
[2021-07-14] MEDS: CHOLECALCIFEROL (VITAMIN D3) 1,000 UNIT TABLET PO SCH (08:36)
[2021-07-14] MEDS: PROPRANOLOL 20 MG TABLET. PO SCH (08:37)
[2021-07-14] MEDS: clonazePAM 0.5 MG TABLET PO SCH ×3 (08:37→19:48)
[2021-07-14] MEDS: traZODone 50 MG TABLET. PO SCH ×3 (08:37→17:27)
[2021-07-14] MEDS: MAGNESIUM OXIDE 400 MG TABLET PO SCH (08:38)
[2021-07-14] MEDS: INSULIN GLARGINE SYRINGE. SQ SCH ×2 (08:42→19:47)
[2021-07-14] MEDS: INSULIN LISPRO 300 UNITS/3 ML VIAL. SQ SCH ×3 (08:43→17:27)
[2021-07-14 08:54] LABS: BASO # 0.1 x10^3/uL (0.0-0.2); BASO % 1 % (0-3); EOS # 0.6 x10^3/uL (0.0-0.7); EOS % 6 % (0-3); HEMATOCRIT 37.4 % (36.0-47.0); HEMOGLOBIN 12.1 g/dL (12.0-15.5); LYMPH # 2.1 x10^3/uL (1.0-4.8); LYMPH % 21 % (24-48); MEAN CORPUSCULAR HEMOGLOBIN 28 pg (25-35); MEAN CORPUSCULAR HGB CONC 32 g/dL (31-37); MEAN CORPUSCULAR VOLUME 86 fL (79-100); MONO # 1.2 x10^3/uL (0.0-1.1); MONO % 12 % (0-9); NEUT % 60 % (31-73); PLATELET COUNT 208 x10^3/uL (140-400); RED BLOOD COUNT 4.37 x10^6/uL (3.50-5.40); RED CELL DISTRIBUTION WIDTH 14.7 % (11.5-14.5); WHITE BLOOD COUNT 9.9 x10^3/uL (4.0-11.0)
[2021-07-14 09:09] LABS: ALBUMIN 2.5 g/dL (3.4-5.0); ALBUMIN/GLOBULIN RATIO 0.6 (1.0-1.7); ALK PHOS 102 U/L (46-116); ALT (SGPT) 23 U/L (14-59); ANION GAP 7 (6-14); AST (SGOT) 36 U/L (15-37); BLOOD UREA NITROGEN 12 mg/dL (7-20); BUN/CREATININE RATIO 15 (6-20); CALCIUM 8.8 mg/dL (8.5-10.1); CARBON DIOXIDE 28 mmol/L (21-32); CHLORIDE 102 mmol/L (98-107); CREATININE 0.8 mg/dL (0.6-1.0); GLUCOSE 171 mg/dL (70-99); POTASSIUM 4.1 mmol/L (3.5-5.1); SODIUM 137 mmol/L (136-145); TOTAL BILIRUBIN 0.3 mg/dL (0.2-1.0)
[2021-07-14 09:18] LABS: VAL ACID 73 mcg/mL (50-100)
--- NOTE | 2021-07-14 11:09 | NUR ---
Nursing note: Pt in dining room at time of AM med pass and assessment. She is pleasant, med compliant and cooperative. Pt has remained withdrawn to her room this shift. Will continue to monitor.
[2021-07-14 15:54] VITALS: BP 131/83
[2021-07-14] MEDS: MIRTAZAPINE 15 MG TABLET PO SCH (19:48)
--- NOTE | 2021-07-14 22:17 | PDOC ---
Exam Note: Donte Note: Please also refer to the separate dictated note~for this date of service dictated separately.~Patient seen individually. Discussed the patient with Nursing staff reviewed the chart.~Reviewed interim history and current functioning. Reviewed vital signs,~Labs/ Radiology~and current medications noted below. Continue current treatment with the changes noted in the dictated addendum note Assessment: Vital Signs/I&O: Vital Signs Date Time Temp Pulse Resp B/P (MAP) Pulse Ox O2 Delivery O2 Flow Rate FiO2 07/14/21 15:54 97.5 77 18 131/83 (99) 97 I & O 07/13/21 07/13/21 07/14/21 15:00 23:00 07:00 Intake Total 1420 ml 420 ml Balance 1420 ml 420 ml Labs: Laboratory Tests Test 07/14/21 07:36 07/14/21 08:00 07/14/21 11:52 07/14/21 16:41 Glucose (Fingerstick) 146 mg/dL (70-99) H 208 mg/dL (70-99) H 150 mg/dL (70-99) H White Blood Count 9.9 x10^3/uL (4.0-11.0) Red Blood Count 4.37 x10^6/uL (3.50-5.40) Hemoglobin 12.1 g/dL (12.0-15.5) Hematocrit 37.4 % (36.0-47.0) Mean Corpuscular Volume 86 fL (79-100) Mean Corpuscular Hemoglobin 28 pg (25-35) Mean Corpuscular Hemoglobin Concent 32 g/dL (31-37) Red Cell Distribution Width 14.7 % (11.5-14.5) H Platelet Count 208 x10^3/uL (140-400) Neutrophils (%) (Auto) 60 % (31-73) Lymphocytes (%) (Auto) 21 % (24-48) L Monocytes (%) (Auto) 12 % (0-9) H Eosinophils (%) (Auto) 6 % (0-3) H Basophils (%) (Auto) 1 % (0-3) Neutrophils # (Auto) 6.0 x10^3uL (1.8-7.7) Lymphocytes # (Auto) 2.1 x10^3/uL (1.0-4.8) Monocytes # (Auto) 1.2 x10^3/uL (0.0-1.1) H Eosinophils # (Auto) 0.6 x10^3/uL (0.0-0.7) Basophils # (Auto) 0.1 x10^3/uL (0.0-0.2) Sodium Level 137 mmol/L (136-145) Potassium Level 4.1 mmol/L (3.5-5.1) Chloride Level 102 mmol/L (98-107) Carbon Dioxide Level 28 mmol/L (21-32) Anion Gap 7 (6-14) Blood Urea Nitrogen 12 mg/dL (7-20) Creatinine 0.8 mg/dL (0.6-1.0) Estimated GFR (Cockcroft-Gault) 72.0 BUN/Creatinine Ratio 15 (6-20) Glucose Level 171 mg/dL (70-99) H Calcium Level 8.8 mg/dL (8.5-10.1) Total Bilirubin 0.3 mg/dL (0.2-1.0) Aspartate Amino Transferase (AST) 36 U/L (15-37) Alanine Aminotransferase (ALT) 23 U/L (14-59) Alkaline Phosphatase 102 U/L (46-116) Ammonia 12 mcmol/L (11-34) Total Protein 7.0 g/dL (6.4-8.2) Albumin 2.5 g/dL (3.4-5.0) L Albumin/Globulin Ratio 0.6 (1.0-1.7) L Valproic Acid Level 73 mcg/mL (50-100) Valproic Acid Last Dose Date 07/13/21 Valproic Acid Last Dose Time 2100 Test 07/14/21 19:28 Glucose (Fingerstick) 169 mg/dL (70-99) H Current Medications: Meds: Laboratory Tests Test 07/14/21 07:36 07/14/21 08:00 07/14/21 11:52 07/14/21 16:41 Glucose (Fingerstick) 146 mg/dL 208 mg/dL 150 mg/dL White Blood Count 9.9 x10^3/uL Red Blood Count 4.37 x10^6/uL Hemoglobin 12.1 g/dL Hematocrit 37.4 % Mean Corpuscular Volume 86 fL Mean Corpuscular Hemoglobin 28 pg Mean Corpuscular Hemoglobin Concent 32 g/dL Red Cell Distribution Width 14.7 % Platelet Count 208 x10^3/uL Neutrophils (%) (Auto) 60 % Lymphocytes (%) (Auto) 21 % Monocytes (%) (Auto) 12 % Eosinophils (%) (Auto) 6 % Basophils (%) (Auto) 1 % Neutrophils # (Auto) 6.0 x10^3uL Lymphocytes # (Auto) 2.1 x10^3/uL Monocytes # (Auto) 1.2 x10^3/uL Eosinophils # (Auto) 0.6 x10^3/uL Basophils # (Auto) 0.1 x10^3/uL Sodium Level 137 mmol/L Potassium Level 4.1 mmol/L Chloride Level 102 mmol/L Carbon Dioxide Level 28 mmol/L Anion Gap 7 Blood Urea Nitrogen 12 mg/dL Creatinine 0.8 mg/dL Estimated GFR (Cockcroft-Gault) 72.0 BUN/Creatinine Ratio 15 Glucose Level 171 mg/dL Calcium Level 8.8 mg/dL Total Bilirubin 0.3 mg/dL Aspartate Amino Transf (AST/SGOT) 36 U/L Alanine Aminotransferase (ALT/SGPT) 23 U/L Alkaline Phosphatase 102 U/L Ammonia 12 mcmol/L Total Protein 7.0 g/dL Albumin 2.5 g/dL Albumin/Globulin Ratio 0.6 Valproic Acid (Depakene) Level 73 mcg/mL Valproic Acid Last Dose Date 07/13/21 Valproic Acid Last Dose Time 2100 Test 07/14/21 19:28 Glucose (Fingerstick) 169 mg/dL Current Medications Medications (Trade) Dose Ordered Sig/Leonides Route PRN Reason Start Time Stop Time Status Last Admin Dose Admin Acetaminophen (Tylenol) 650 mg PRN Q6HRS PRN PO MILD PAIN / TEMP > 100.3'F 07/03/21 16:30 Cancel Multi-Ingredient Ointment (Analgesic [place]) 1 swathi PRN QID PRN TP MUSCLE PAIN 07/03/21 16:30 Al Hydroxide/Mg Hydroxide (Mylanta Plus Xs) 15 ml PRN AFTMEALHC PRN PO DYSPEPSIA 07/03/21 16:30 Magnesium Hydroxide (Milk Of Magnesia) 2,400 mg PRN QHS PRN PO 2ND CHOICE CONSTIPATION 07/03/21 16:30 Acetaminophen (Tylenol) 650 mg PRN Q4HRS PRN PO MILD PAIN / TEMP > 100.3'F 07/03/21 18:45 07/09/21 05:36 Aspirin (Aspirin Enteric Coated) 81 mg DAILY PO 07/04/21 09:00 07/14/21 08:35 Bisacodyl (Dulcolax Tab) 5 mg PRN DAILY PRN PO 3RD CHOICE CONSTIPATION 07/03/21 18:45 Clonazepam (KlonoPIN) 0.5 mg TID PO 07/03/21 21:00 07/14/21 19:48 Diclofenac Sodium (Voltaren) 1 swathi PRN Q6HRS PRN TP PAIN 07/03/21 18:45 Divalproex Sodium (Depakote Sprinkles) 250 mg BID PO 07/03/21 21:00 07/06/21 23:37 DC 07/06/21 20:18 Furosemide (Lasix) 40 mg DAILY PO 07/04/21 09:00 07/14/21 08:35 Ibuprofen (Motrin) 400 mg PRN Q6HRS PRN PO INFLAMMATION / TEMP > 100.3'F 07/03/21 18:45 Albuterol/ Ipratropium (Combivent Respimat 20-100 Mcg) 1 puff PRN BID PRN INH SHORTNESS OF BREATH 07/03/21 19:15 Levothyroxine Sodium (Synthroid) 175 mcg DAILY06 PO 07/04/21 06:00 07/14/21 05:34 Al Hydroxide/Mg Hydroxide (Mylanta Plus Xs) 15 ml PRN AFTMEALHC PRN PO DYSPEPSIA 07/03/21 18:45 UNV Magnesium Oxide (Magnesium Oxide) 400 mg DAILY PO 07/04/21 09:00 07/14/21 08:38 Multi-Ingredient Ointment (Analgesic [place]) 1 swathi PRN QID PRN TP MUSCLE PAIN 07/03/21 18:45 UNV Mirtazapine (Remeron) 15 mg QHS PO 07/03/21 21:00 07/14/21 19:48 Risperidone (RisperDAL CONSTA) 25 mg Q2WKS IM 07/05/21 09:00 07/05/21 08:27 Spironolactone (Aldactone) 25 mg DAILY PO 07/04/21 09:00 07/14/21 08:36 Trazodone HCl (Desyrel) 25 mg DAILY PO 07/04/21 09:00 07/14/21 08:37 Trazodone HCl (Desyrel) 50 mg BID@1300,1700 PO 07/04/21 13:00 07/14/21 17:27 Betamethasone Dipropion Augmented (Betamethasone Dp Aug 0.05% Cream) 1 swathi PRN BID PRN TP RASH 07/03/21 19:15 Non-Formulary Medication (Eucalyptus Oil/ Menthol/Camphor (Vicks Vaporub Ointment)) 50 gm QHS TP 07/03/21 21:00 UNV Guaifenesin (Robitussin Dm) 10 ml PRN Q4HRS PRN PO COUGH 07/03/21 19:15 Insulin Human Lispro (HumaLOG) 28 units TIDWMEALS SQ 07/04/21 08:00 07/14/21 17:27 Insulin Glargine (Lantus Syringe) 40 unit BID SQ 07/03/21 21:00 07/14/21 19:47 Non-Formulary Medication (Magnesium Hydroxide (Milk Of Magnesia)) 2,400 mg PRN QHS PRN PO CONSTIPATION 07/03/21 18:45 UNV Pantoprazole Sodium (Protonix) 40 mg DAILY PO 07/04/21 09:00 07/14/21 08:35 Oxybutynin Chloride (Ditropan) 5 mg DAILY PO 07/04/21 09:00 07/14/21 08:35 Polyethylene Glycol (miraLAX) 17 gm PRN Q72HRS PRN PO 1ST CHOICE CONSTIPATION 07/03/21 19:15 Potassium Chloride (Klor-Con) 10 meq DAILY PO 07/04/21 09:00 07/04/21 08:42 DC Propranolol HCl (Inderal) 40 mg DAILY PO 07/04/21 09:00 07/14/21 08:37 Vitamin D (Vitamin D3) 2,000 unit DAILY PO 07/04/21 09:00 07/14/21 08:36 Potassium Chloride (Klor-Con) 20 meq BID PO 07/05/21 09:00 07/14/21 19:47 Potassium Chloride (Klor-Con) 40 meq 1X ONCE PO 07/04/21 08:45 07/04/21 08:46 DC 07/04/21 08:59 Potassium Chloride (Klor-Con) 40 meq 1X ONCE PO 07/04/21 09:45 07/04/21 09:46 DC 07/04/21 10:02 Potassium Chloride (Klor-Con) 40 meq 1X ONCE PO 07/04/21 10:45 07/04/21 10:46 DC 07/04/21 10:45 Divalproex Sodium (Depakote Sprinkles) 500 mg BID PO 07/07/21 09:00 07/10/21 16:07 DC 07/10/21 08:09 Divalproex Sodium (Depakote Sprinkles) 750 mg BID PO 07/10/21 21:00 07/14/21 19:48 I have reviewed the current psychotropics carefully including drug interactions. Risk benefit ratio favors no change other than as noted in my dictated progress note. Diagnosis: Problems: (1) Schizoaffective disorder, bipolar type (2) Mild cognitive impairment (3) Anxiety disorder, unspecified (4) Impulse disorder, unspecified (5) Bipolar disorder, curr episode mixed, severe, with psychotic features RAJIV VELAZQUEZ MD Jul 14, 2021 22:17
[2021-07-15] MEDS: LEVOTHYROXINE 175 MCG TABLET PO SCH (05:13)
[2021-07-15 05:57] VITALS: BP 164/78
[2021-07-15] MEDS: ASPIRIN ENTERIC COATED 81 MG TABLET.DR. PO SCH (08:20)
[2021-07-15] MEDS: clonazePAM 0.5 MG TABLET PO SCH ×3 (08:21→20:33)
[2021-07-15] MEDS: traZODone 50 MG TABLET. PO SCH ×3 (08:21→17:26)
[2021-07-15] MEDS: CHOLECALCIFEROL (VITAMIN D3) 1,000 UNIT TABLET PO SCH (08:21)
[2021-07-15] MEDS: SPIRONOLACTONE 25 MG TABLET PO SCH (08:21)
[2021-07-15] MEDS: FUROSEMIDE 40 MG TABLET PO SCH (08:21)
[2021-07-15] MEDS: OXYBUTYNIN CHLORIDE 5 MG TABLET PO SCH (08:21)
[2021-07-15] MEDS: PANTOPRAZOLE 40 MG TABLET. PO SCH (08:21)
[2021-07-15] MEDS: POTASSIUM CHLORIDE 10 MEQ TABLET.ER. PO SCH ×2 (08:22→20:33)
[2021-07-15] MEDS: DIVALPROEX 125 MG CAP.SPRINK PO SCH ×2 (08:22→20:33)
[2021-07-15] MEDS: PROPRANOLOL 20 MG TABLET. PO SCH (08:22)
[2021-07-15] MEDS: INSULIN GLARGINE SYRINGE. SQ SCH ×2 (08:23→20:35)
[2021-07-15] MEDS: INSULIN LISPRO 300 UNITS/3 ML VIAL. SQ SCH ×3 (08:24→17:27)
[2021-07-15] MEDS: MAGNESIUM OXIDE 400 MG TABLET PO SCH (08:25)
--- NOTE | 2021-07-15 09:31 | NUR ---
Nursing note: Pt in dining room at time of AM med pass and assessment. She is compliant with meds whole and cooperative with her assessment. Pt denies having any pain/concerns. She is currently sitting quietly in the [place]rera. Will continue to monitor.
--- NOTE | 2021-07-15 10:04 | PDOC ---
Exam Note: Donte Note: This note is a late entry for 07/13/2021 covers elements not covered in my initial note. Subjective: The patient was seen individually in the evening of 07/13/2021 with Pardeep COPELAND, discussed and reviewed the chart. The patient slept 8-1/2 hours previous night. Overall the patient remains somewhat withdrawn, still paranoid, but less aggressive. We will check valproic acid level morning of 07/14 and adjust Depakote thereafter. I met with her in her room. Review of Systems: Ambulation impaired. No CV, , pulmonary, eye, ENT system symptoms on review. Mental Status Exam: The patient is reasonably oriented. Speech coherent. Abstraction fair. Computation impaired. Language function intact. Mood and affect withdrawn. No suicidal or homicidal ideation. Laboratory Data: Reviewed. Impression: Schizo-affective disorder bipolar type mixed with psychotic features. Anxiety disorder unspecified. Impulse control disorder unspecified. Plan: We will check valproic acid level morning of 07/14 and adjust Depakote thereafter. For now we will continue Klonopin, Depakote, Remeron, Risperdal Consta, trazodone scheduled. If she is overtly sedated we may reduce the Klonopin and/or the trazodone. We will also check ammonia level morning of 07/14. Assessment: Vital Signs/I&O: Vital Signs Date Time Temp Pulse Resp B/P (MAP) Pulse Ox O2 Delivery O2 Flow Rate FiO2 07/15/21 08:22 81 164/78 07/15/21 05:57 98.5 20 91 I & O 07/14/21 07/14/21 07/15/21 15:00 23:00 07:00 Intake Total 960 ml 600 ml Balance 960 ml 600 ml Labs: Laboratory Tests Test 07/14/21 11:52 07/14/21 16:41 07/14/21 19:28 07/15/21 07:30 Glucose (Fingerstick) 208 mg/dL (70-99) H 150 mg/dL (70-99) H 169 mg/dL (70-99) H 210 mg/dL (70-99) H Current Medications: Meds: Laboratory Tests Test 07/14/21 11:52 07/14/21 16:41 07/14/21 19:28 07/15/21 07:30 Glucose (Fingerstick) 208 mg/dL 150 mg/dL 169 mg/dL 210 mg/dL Current Medications Medications (Trade) Dose Ordered Sig/Leonides Route PRN Reason Start Time Stop Time Status Last Admin Dose Admin Acetaminophen (Tylenol) 650 mg PRN Q6HRS PRN PO MILD PAIN / TEMP > 100.3'F 07/03/21 16:30 Cancel Multi-Ingredient Ointment (Analgesic [place]) 1 swathi PRN QID PRN TP MUSCLE PAIN 07/03/21 16:30 Al Hydroxide/Mg Hydroxide (Mylanta Plus Xs) 15 ml PRN AFTMEALHC PRN PO DYSPEPSIA 07/03/21 16:30 Magnesium Hydroxide (Milk Of Magnesia) 2,400 mg PRN QHS PRN PO 2ND CHOICE CONSTIPATION 07/03/21 16:30 Acetaminophen (Tylenol) 650 mg PRN Q4HRS PRN PO MILD PAIN / TEMP > 100.3'F 07/03/21 18:45 07/09/21 05:36 Aspirin (Aspirin Enteric Coated) 81 mg DAILY PO 07/04/21 09:00 07/15/21 08:20 Bisacodyl (Dulcolax Tab) 5 mg PRN DAILY PRN PO 3RD CHOICE CONSTIPATION 07/03/21 18:45 Clonazepam (KlonoPIN) 0.5 mg TID PO 07/03/21 21:00 07/15/21 08:21 Diclofenac Sodium (Voltaren) 1 swathi PRN Q6HRS PRN TP PAIN 07/03/21 18:45 Divalproex Sodium (Depakote Sprinkles) 250 mg BID PO 07/03/21 21:00 07/06/21 23:37 DC 07/06/21 20:18 Furosemide (Lasix) 40 mg DAILY PO 07/04/21 09:00 07/15/21 08:21 Ibuprofen (Motrin) 400 mg PRN Q6HRS PRN PO INFLAMMATION / TEMP > 100.3'F 07/03/21 18:45 Albuterol/ Ipratropium (Combivent Respimat 20-100 Mcg) 1 puff PRN BID PRN INH SHORTNESS OF BREATH 07/03/21 19:15 Levothyroxine Sodium (Synthroid) 175 mcg DAILY06 PO 07/04/21 06:00 07/15/21 05:13 Al Hydroxide/Mg Hydroxide (Mylanta Plus Xs) 15 ml PRN AFTMEALHC PRN PO DYSPEPSIA 07/03/21 18:45 UNV Magnesium Oxide (Magnesium Oxide) 400 mg DAILY PO 07/04/21 09:00 07/15/21 08:25 Multi-Ingredient Ointment (Analgesic [place]) 1 swathi PRN QID PRN TP MUSCLE PAIN 07/03/21 18:45 UNV Mirtazapine (Remeron) 15 mg QHS PO 07/03/21 21:00 07/14/21 19:48 Risperidone (RisperDAL CONSTA) 25 mg Q2WKS IM 07/05/21 09:00 07/05/21 08:27 Spironolactone (Aldactone) 25 mg DAILY PO 07/04/21 09:00 07/15/21 08:21 Trazodone HCl (Desyrel) 25 mg DAILY PO 07/04/21 09:00 07/15/21 08:21 Trazodone HCl (Desyrel) 50 mg BID@1300,1700 PO 07/04/21 13:00 07/14/21 17:27 Betamethasone Dipropion Augmented (Betamethasone Dp Aug 0.05% Cream) 1 swathi PRN BID PRN TP RASH 07/03/21 19:15 Non-Formulary Medication (Eucalyptus Oil/ Menthol/Camphor (Vicks Vaporub Ointment)) 50 gm QHS TP 07/03/21 21:00 UNV Guaifenesin (Robitussin Dm) 10 ml PRN Q4HRS PRN PO COUGH 07/03/21 19:15 Insulin Human Lispro (HumaLOG) 28 units TIDWMEALS SQ 07/04/21 08:00 07/15/21 08:24 Insulin Glargine (Lantus Syringe) 40 unit BID SQ 07/03/21 21:00 07/15/21 08:23 Non-Formulary Medication (Magnesium Hydroxide (Milk Of Magnesia)) 2,400 mg PRN QHS PRN PO CONSTIPATION 07/03/21 18:45 UNV Pantoprazole Sodium (Protonix) 40 mg DAILY PO 07/04/21 09:00 07/15/21 08:21 Oxybutynin Chloride (Ditropan) 5 mg DAILY PO 07/04/21 09:00 07/15/21 08:21 Polyethylene Glycol (miraLAX) 17 gm PRN Q72HRS PRN PO 1ST CHOICE CONSTIPATION 07/03/21 19:15 Potassium Chloride (Klor-Con) 10 meq DAILY PO 07/04/21 09:00 07/04/21 08:42 DC Propranolol HCl (Inderal) 40 mg DAILY PO 07/04/21 09:00 07/15/21 08:22 Vitamin D (Vitamin D3) 2,000 unit DAILY PO 07/04/21 09:00 07/15/21 08:21 Potassium Chloride (Klor-Con) 20 meq BID PO 07/05/21 09:00 07/15/21 08:22 Potassium Chloride (Klor-Con) 40 meq 1X ONCE PO 07/04/21 08:45 07/04/21 08:46 DC 07/04/21 08:59 Potassium Chloride (Klor-Con) 40 meq 1X ONCE PO 07/04/21 09:45 07/04/21 09:46 DC 07/04/21 10:02 Potassium Chloride (Klor-Con) 40 meq 1X ONCE PO 07/04/21 10:45 07/04/21 10:46 DC 07/04/21 10:45 Divalproex Sodium (Depakote Sprinkles) 500 mg BID PO 07/07/21 09:00 07/10/21 16:07 DC 07/10/21 08:09 Divalproex Sodium (Depakote Sprinkles) 750 mg BID PO 07/10/21 21:00 07/15/21 08:22 I have reviewed the current psychotropics carefully including drug interactions. Risk benefit ratio favors no change other than as noted in my dictated progress note. Diagnosis: Problems: (1) Schizoaffective disorder, bipolar type (2) Mild cognitive impairment (3) Anxiety disorder, unspecified (4) Impulse disorder, unspecified (5) Bipolar disorder, curr episode mixed, severe, with psychotic features RAJIV VELAZQUEZ MD Jul 15, 2021 10:04
[2021-07-15 16:04] VITALS: BP 113/55
--- NOTE | 2021-07-15 17:30 | NUR ---
Nursing note: Pt has expressed some delusions this afternoon, thinking I am her daughter and my name is "Rosa". Pt also stated that her "son is the sample preparation supervisor". She is cooperative with redirection.
[2021-07-15] MEDS: MIRTAZAPINE 15 MG TABLET PO SCH (20:33)
[2021-07-15 21:15] LABS: COLOR,URINE YELLOW
[2021-07-15 21:16] LABS: BACTERIA,URINE FEW /HPF (0-FEW); BILIRUBIN,URINE NEG (NEG); CLARITY,URINE HAZY; GLUCOSE,URINE >=1000 mg/dL (NEG); NITRITE,URINE NEG (NEG); RBC,URINE OCC /HPF (0-2); SQUAMOUS EPITHELIAL CELL,UR MOD /LPF; WBC,URINE 20-40 /HPF (0-4)
--- NOTE | 2021-07-15 21:46 | NUR ---
Patient in the hallway socializing with peers. She was compliant with meds and cooperative with staff. Patient was observed using a walker to ambulate. Day shift staff had reported several instances of urine incontinence today. Urine sample sent to lab and went out to culture. Patient denies hallucinations and delusions when asked. Patient has been polite and is oriented x3.
--- NOTE | 2021-07-15 22:03 | PDOC ---
Exam Note: Donte Note: Please also refer to the separate dictated note~for this date of service dictated separately.~Patient seen individually. Discussed the patient with Nursing staff reviewed the chart.~Reviewed interim history and current functioning. Reviewed vital signs,~Labs/ Radiology~and current medications noted below. Continue current treatment with the changes noted in the dictated addendum note Assessment: Vital Signs/I&O: Vital Signs Date Time Temp Pulse Resp B/P (MAP) Pulse Ox O2 Delivery O2 Flow Rate FiO2 07/15/21 16:04 97.8 76 18 113/55 (74) 94 I & O 07/14/21 07/14/21 07/15/21 15:00 23:00 07:00 Intake Total 960 ml 600 ml Balance 960 ml 600 ml Labs: Laboratory Tests Test 07/15/21 07:30 07/15/21 11:25 07/15/21 16:17 07/15/21 19:07 Glucose (Fingerstick) 210 mg/dL (70-99) H 290 mg/dL (70-99) H 274 mg/dL (70-99) H 306 mg/dL (70-99) H Test 07/15/21 20:29 Urine Collection Type Clean catch Urine Color Yellow Urine Clarity Hazy Urine pH 6.0 Urine Specific [place] 1.025 Urine Protein Neg (NEG-TRACE) Urine Glucose (UA) >=1000 mg/dL (NEG) Urine Ketones (Stick) Trace mg/dL (NEG) Urine Blood Trace (NEG) Urine Nitrite Neg (NEG) Urine Bilirubin Neg (NEG) Urine Urobilinogen Dipstick 1.0 mg/dL (0.2 mg/dL) Urine Leukocyte Esterase Neg (NEG) Urine RBC Occ /HPF (0-2) Urine WBC 20-40 /HPF (0-4) Urine Squamous Epithelial Cells Mod /LPF Urine Bacteria Few /HPF (0-FEW) Current Medications: Meds: Laboratory Tests Test 07/15/21 07:30 07/15/21 11:25 07/15/21 16:17 07/15/21 19:07 Glucose (Fingerstick) 210 mg/dL 290 mg/dL 274 mg/dL 306 mg/dL Test 07/15/21 20:29 Urine Collection Type Clean catch Urine Color Yellow Urine Clarity Hazy Urine pH 6.0 Urine Specific [place] 1.025 Urine Protein Neg Urine Glucose (UA) >=1000 mg/dL Urine Ketones (Stick) Trace mg/dL Urine Blood Trace Urine Nitrite Neg Urine Bilirubin Neg Urine Urobilinogen Dipstick 1.0 mg/dL Urine Leukocyte Esterase Neg Urine RBC Occ /HPF Urine WBC 20-40 /HPF Urine Squamous Epithelial Cells Mod /LPF Urine Bacteria Few /HPF Current Medications Medications (Trade) Dose Ordered Sig/Leonides Route PRN Reason Start Time Stop Time Status Last Admin Dose Admin Acetaminophen (Tylenol) 650 mg PRN Q6HRS PRN PO MILD PAIN / TEMP > 100.3'F 07/03/21 16:30 Cancel Multi-Ingredient Ointment (Analgesic [place]) 1 swathi PRN QID PRN TP MUSCLE PAIN 07/03/21 16:30 Al Hydroxide/Mg Hydroxide (Mylanta Plus Xs) 15 ml PRN AFTMEALHC PRN PO DYSPEPSIA 07/03/21 16:30 Magnesium Hydroxide (Milk Of Magnesia) 2,400 mg PRN QHS PRN PO 2ND CHOICE CONSTIPATION 07/03/21 16:30 Acetaminophen (Tylenol) 650 mg PRN Q4HRS PRN PO MILD PAIN / TEMP > 100.3'F 07/03/21 18:45 07/09/21 05:36 Aspirin (Aspirin Enteric Coated) 81 mg DAILY PO 07/04/21 09:00 07/15/21 08:20 Bisacodyl (Dulcolax Tab) 5 mg PRN DAILY PRN PO 3RD CHOICE CONSTIPATION 07/03/21 18:45 Clonazepam (KlonoPIN) 0.5 mg TID PO 07/03/21 21:00 07/15/21 20:33 Diclofenac Sodium (Voltaren) 1 swathi PRN Q6HRS PRN TP PAIN 07/03/21 18:45 Divalproex Sodium (Depakote Sprinkles) 250 mg BID PO 07/03/21 21:00 07/06/21 23:37 DC 07/06/21 20:18 Furosemide (Lasix) 40 mg DAILY PO 07/04/21 09:00 07/15/21 08:21 Ibuprofen (Motrin) 400 mg PRN Q6HRS PRN PO INFLAMMATION / TEMP > 100.3'F 07/03/21 18:45 Albuterol/ Ipratropium (Combivent Respimat 20-100 Mcg) 1 puff PRN BID PRN INH SHORTNESS OF BREATH 07/03/21 19:15 Levothyroxine Sodium (Synthroid) 175 mcg DAILY06 PO 07/04/21 06:00 07/15/21 05:13 Al Hydroxide/Mg Hydroxide (Mylanta Plus Xs) 15 ml PRN AFTMEALHC PRN PO DYSPEPSIA 07/03/21 18:45 UNV Magnesium Oxide (Magnesium Oxide) 400 mg DAILY PO 07/04/21 09:00 07/15/21 08:25 Multi-Ingredient Ointment (Analgesic [place]) 1 swathi PRN QID PRN TP MUSCLE PAIN 07/03/21 18:45 UNV Mirtazapine (Remeron) 15 mg QHS PO 07/03/21 21:00 07/15/21 20:33 Risperidone (RisperDAL CONSTA) 25 mg Q2WKS IM 07/05/21 09:00 07/05/21 08:27 Spironolactone (Aldactone) 25 mg DAILY PO 07/04/21 09:00 07/15/21 08:21 Trazodone HCl (Desyrel) 25 mg DAILY PO 07/04/21 09:00 07/15/21 08:21 Trazodone HCl (Desyrel) 50 mg BID@1300,1700 PO 07/04/21 13:00 07/15/21 17:26 Betamethasone Dipropion Augmented (Betamethasone Dp Aug 0.05% Cream) 1 swathi PRN BID PRN TP RASH 07/03/21 19:15 Non-Formulary Medication (Eucalyptus Oil/ Menthol/Camphor (Vicks Vaporub Ointment)) 50 gm QHS TP 07/03/21 21:00 UNV Guaifenesin (Robitussin Dm) 10 ml PRN Q4HRS PRN PO COUGH 07/03/21 19:15 Insulin Human Lispro (HumaLOG) 28 units TIDWMEALS SQ 07/04/21 08:00 07/15/21 17:27 Insulin Glargine (Lantus Syringe) 40 unit BID SQ 07/03/21 21:00 07/15/21 20:35 Non-Formulary Medication (Magnesium Hydroxide (Milk Of Magnesia)) 2,400 mg PRN QHS PRN PO CONSTIPATION 07/03/21 18:45 UNV Pantoprazole Sodium (Protonix) 40 mg DAILY PO 07/04/21 09:00 07/15/21 08:21 Oxybutynin Chloride (Ditropan) 5 mg DAILY PO 07/04/21 09:00 07/15/21 08:21 Polyethylene Glycol (miraLAX) 17 gm PRN Q72HRS PRN PO 1ST CHOICE CONSTIPATION 07/03/21 19:15 Potassium Chloride (Klor-Con) 10 meq DAILY PO 07/04/21 09:00 07/04/21 08:42 DC Propranolol HCl (Inderal) 40 mg DAILY PO 07/04/21 09:00 07/15/21 08:22 Vitamin D (Vitamin D3) 2,000 unit DAILY PO 07/04/21 09:00 07/15/21 08:21 Potassium Chloride (Klor-Con) 20 meq BID PO 07/05/21 09:00 07/15/21 20:33 Potassium Chloride (Klor-Con) 40 meq 1X ONCE PO 07/04/21 08:45 07/04/21 08:46 DC 07/04/21 08:59 Potassium Chloride (Klor-Con) 40 meq 1X ONCE PO 07/04/21 09:45 07/04/21 09:46 DC 07/04/21 10:02 Potassium Chloride (Klor-Con) 40 meq 1X ONCE PO 07/04/21 10:45 07/04/21 10:46 DC 07/04/21 10:45 Divalproex Sodium (Depakote Sprinkles) 500 mg BID PO 07/07/21 09:00 07/10/21 16:07 DC 07/10/21 08:09 Divalproex Sodium (Depakote Sprinkles) 750 mg BID PO 07/10/21 21:00 07/15/21 20:33 I have reviewed the current psychotropics carefully including drug interactions. Risk benefit ratio favors no change other than as noted in my dictated progress note. Diagnosis: Problems: (1) Schizoaffective disorder, bipolar type (2) Mild cognitive impairment (3) Anxiety disorder, unspecified (4) Impulse disorder, unspecified (5) Bipolar disorder, curr episode mixed, severe, with psychotic features RAJIV VELAZQUEZ MD Jul 15, 2021 22:03
[2021-07-16] MEDS: LEVOTHYROXINE 175 MCG TABLET PO SCH ×2 (05:28→05:39)
--- NOTE | 2021-07-16 05:44 | NUR ---
Patient refused her 0600 thyroid medication. Nurse provided patient with education about thyroid medication but she continued to refuse.
[2021-07-16 05:51] VITALS: BP 119/71
--- NOTE | 2021-07-16 08:22 | PDOC ---
Exam Note: Donte Note: This note is a late entry for 07/14/2021 covers elements not covered in my initial note. Subjective: The patient was seen individually in the evening of 07/14/2021 with Pardeep COPELAND, discussed and reviewed the chart. The patient slept 8-1/2 hours previous night. She is doing better. She has been coming out of her room more per nursing staff, interacting, less paranoid, less growling. Valproic acid level is therapeutic at 73. Ammonia is unremarkable. Review of Systems: Ambulation impaired. No CV, , pulmonary, eye, ENT system symptoms on review. Mental Status Exam: The patient is reasonably oriented. Speech coherent. Abstraction fair. Computation impaired. Language function intact. Mood and affect anxious, less labile, less paranoid. No suicidal or homicidal ideation. Laboratory Data: Reviewed. Impression: Schizo-affective disorder bipolar type mixed with psychotic features. Anxiety disorder unspecified. Impulse control disorder unspecified. Plan: Continue current psychotropics. Valproic acid level is therapeutic. We will keep it unchanged. We may consider reducing trazodone and/or Klonopin later but for now the patient is doing better and we will maintain as such. Assessment: Vital Signs/I&O: Vital Signs Date Time Temp Pulse Resp B/P (MAP) Pulse Ox O2 Delivery O2 Flow Rate FiO2 07/16/21 05:51 98.7 91 17 119/71 (87) 90 I & O 07/15/21 07/15/21 07/16/21 15:00 23:00 07:00 Intake Total 1080 ml 480 ml Balance 1080 ml 480 ml Labs: Laboratory Tests Test 07/15/21 11:25 07/15/21 16:17 07/15/21 19:07 07/15/21 20:29 Glucose (Fingerstick) 290 mg/dL (70-99) H 274 mg/dL (70-99) H 306 mg/dL (70-99) H Urine Collection Type Clean catch Urine Color Yellow Urine Clarity Hazy Urine pH 6.0 Urine Specific [place] 1.025 Urine Protein Neg (NEG-TRACE) Urine Glucose (UA) >=1000 mg/dL (NEG) Urine Ketones (Stick) Trace mg/dL (NEG) Urine Blood Trace (NEG) Urine Nitrite Neg (NEG) Urine Bilirubin Neg (NEG) Urine Urobilinogen Dipstick 1.0 mg/dL (0.2 mg/dL) Urine Leukocyte Esterase Neg (NEG) Urine RBC Occ /HPF (0-2) Urine WBC 20-40 /HPF (0-4) Urine Squamous Epithelial Cells Mod /LPF Urine Bacteria Few /HPF (0-FEW) Test 07/16/21 07:33 Glucose (Fingerstick) 231 mg/dL (70-99) H Current Medications: Meds: Laboratory Tests Test 07/15/21 11:25 07/15/21 16:17 07/15/21 19:07 07/15/21 20:29 Glucose (Fingerstick) 290 mg/dL 274 mg/dL 306 mg/dL Urine Collection Type Clean catch Urine Color Yellow Urine Clarity Hazy Urine pH 6.0 Urine Specific [place] 1.025 Urine Protein Neg Urine Glucose (UA) >=1000 mg/dL Urine Ketones (Stick) Trace mg/dL Urine Blood Trace Urine Nitrite Neg Urine Bilirubin Neg Urine Urobilinogen Dipstick 1.0 mg/dL Urine Leukocyte Esterase Neg Urine RBC Occ /HPF Urine WBC 20-40 /HPF Urine Squamous Epithelial Cells Mod /LPF Urine Bacteria Few /HPF Test 07/16/21 07:33 Glucose (Fingerstick) 231 mg/dL Current Medications Medications (Trade) Dose Ordered Sig/Leonides Route PRN Reason Start Time Stop Time Status Last Admin Dose Admin Acetaminophen (Tylenol) 650 mg PRN Q6HRS PRN PO MILD PAIN / TEMP > 100.3'F 07/03/21 16:30 Cancel Multi-Ingredient Ointment (Analgesic [place]) 1 swathi PRN QID PRN TP MUSCLE PAIN 07/03/21 16:30 Al Hydroxide/Mg Hydroxide (Mylanta Plus Xs) 15 ml PRN AFTMEALHC PRN PO DYSPEPSIA 07/03/21 16:30 Magnesium Hydroxide (Milk Of Magnesia) 2,400 mg PRN QHS PRN PO 2ND CHOICE CONSTIPATION 07/03/21 16:30 Acetaminophen (Tylenol) 650 mg PRN Q4HRS PRN PO MILD PAIN / TEMP > 100.3'F 07/03/21 18:45 07/09/21 05:36 Aspirin (Aspirin Enteric Coated) 81 mg DAILY PO 07/04/21 09:00 07/15/21 08:20 Bisacodyl (Dulcolax Tab) 5 mg PRN DAILY PRN PO 3RD CHOICE CONSTIPATION 07/03/21 18:45 Clonazepam (KlonoPIN) 0.5 mg TID PO 07/03/21 21:00 07/15/21 20:33 Diclofenac Sodium (Voltaren) 1 swathi PRN Q6HRS PRN TP PAIN 07/03/21 18:45 Divalproex Sodium (Depakote Sprinkles) 250 mg BID PO 07/03/21 21:00 07/06/21 23:37 DC 07/06/21 20:18 Furosemide (Lasix) 40 mg DAILY PO 07/04/21 09:00 07/15/21 08:21 Ibuprofen (Motrin) 400 mg PRN Q6HRS PRN PO INFLAMMATION / TEMP > 100.3'F 07/03/21 18:45 Albuterol/ Ipratropium (Combivent Respimat 20-100 Mcg) 1 puff PRN BID PRN INH SHORTNESS OF BREATH 07/03/21 19:15 Levothyroxine Sodium (Synthroid) 175 mcg DAILY06 PO 07/04/21 06:00 07/15/21 05:13 Al Hydroxide/Mg Hydroxide (Mylanta Plus Xs) 15 ml PRN AFTMEALHC PRN PO DYSPEPSIA 07/03/21 18:45 UNV Magnesium Oxide (Magnesium Oxide) 400 mg DAILY PO 07/04/21 09:00 07/15/21 08:25 Multi-Ingredient Ointment (Analgesic [place]) 1 swathi PRN QID PRN TP MUSCLE PAIN 07/03/21 18:45 UNV Mirtazapine (Remeron) 15 mg QHS PO 07/03/21 21:00 07/15/21 20:33 Risperidone (RisperDAL CONSTA) 25 mg Q2WKS IM 07/05/21 09:00 07/05/21 08:27 Spironolactone (Aldactone) 25 mg DAILY PO 07/04/21 09:00 07/15/21 08:21 Trazodone HCl (Desyrel) 25 mg DAILY PO 07/04/21 09:00 07/15/21 08:21 Trazodone HCl (Desyrel) 50 mg BID@1300,1700 PO 07/04/21 13:00 07/15/21 17:26 Betamethasone Dipropion Augmented (Betamethasone Dp Aug 0.05% Cream) 1 swathi PRN BID PRN TP RASH 07/03/21 19:15 Non-Formulary Medication (Eucalyptus Oil/ Menthol/Camphor (Vicks Vaporub Ointment)) 50 gm QHS TP 07/03/21 21:00 UNV Guaifenesin (Robitussin Dm) 10 ml PRN Q4HRS PRN PO COUGH 07/03/21 19:15 Insulin Human Lispro (HumaLOG) 28 units TIDWMEALS SQ 07/04/21 08:00 07/15/21 17:27 Insulin Glargine (Lantus Syringe) 40 unit BID SQ 07/03/21 21:00 07/15/21 20:35 Non-Formulary Medication (Magnesium Hydroxide (Milk Of Magnesia)) 2,400 mg PRN QHS PRN PO CONSTIPATION 07/03/21 18:45 UNV Pantoprazole Sodium (Protonix) 40 mg DAILY PO 07/04/21 09:00 07/15/21 08:21 Oxybutynin Chloride (Ditropan) 5 mg DAILY PO 07/04/21 09:00 07/15/21 08:21 Polyethylene Glycol (miraLAX) 17 gm PRN Q72HRS PRN PO 1ST CHOICE CONSTIPATION 07/03/21 19:15 Potassium Chloride (Klor-Con) 10 meq DAILY PO 07/04/21 09:00 07/04/21 08:42 DC Propranolol HCl (Inderal) 40 mg DAILY PO 07/04/21 09:00 07/15/21 08:22 Vitamin D (Vitamin D3) 2,000 unit DAILY PO 07/04/21 09:00 07/15/21 08:21 Potassium Chloride (Klor-Con) 20 meq BID PO 07/05/21 09:00 07/15/21 20:33 Potassium Chloride (Klor-Con) 40 meq 1X ONCE PO 07/04/21 08:45 07/04/21 08:46 DC 07/04/21 08:59 Potassium Chloride (Klor-Con) 40 meq 1X ONCE PO 07/04/21 09:45 07/04/21 09:46 DC 07/04/21 10:02 Potassium Chloride (Klor-Con) 40 meq 1X ONCE PO 07/04/21 10:45 07/04/21 10:46 DC 07/04/21 10:45 Divalproex Sodium (Depakote Sprinkles) 500 mg BID PO 07/07/21 09:00 07/10/21 16:07 DC 07/10/21 08:09 Divalproex Sodium (Depakote Sprinkles) 750 mg BID PO 07/10/21 21:00 07/15/21 20:33 I have reviewed the current psychotropics carefully including drug interactions. Risk benefit ratio favors no change other than as noted in my dictated progress note. Diagnosis: Problems: (1) Schizoaffective disorder, bipolar type (2) Mild cognitive impairment (3) Anxiety disorder, unspecified (4) Impulse disorder, unspecified (5) Bipolar disorder, curr episode mixed, severe, with psychotic features RAJIV VELAZQUEZ MD Jul 16, 2021 08:22
--- NOTE | 2021-07-16 08:36 | PDOC ---
Exam Note: Donte Note: This note is a late entry for 07/15/2021 covers elements not covered in my initial note. Subjective: The patient was seen individually in the evening of 07/15/2021 with Larisa COPELAND, discussed and reviewed the chart. The patient slept 5 hours previous night. Per nursing report the patient continues to have some mood swings. She was little irritable till breakfast, then did better but was urinating in her pants. We will check her UA for UTI. As noted in my prior note, valproic acid level is therapeutic. I met with her in the hallway. She was quite interactive, smiling, coming out more. Review of Systems: Ambulation impaired. No CV, , pulmonary, eye, ENT system symptoms on review. Mental Status Exam: The patient is reasonably oriented. Speech coherent. Abstraction fair. Computation impaired. Language function intact. Attention span short. Mood and affect improved. Laboratory Data: Reviewed. Impression: Schizo-affective disorder bipolar type mixed with psychotic features. Anxiety disorder unspecified. Impulse control disorder unspecified. Plan: Continue current psychotropics. Assessment: Vital Signs/I&O: Vital Signs Date Time Temp Pulse Resp B/P (MAP) Pulse Ox O2 Delivery O2 Flow Rate FiO2 07/16/21 05:51 98.7 91 17 119/71 (87) 90 I & O 07/15/21 07/15/21 07/16/21 15:00 23:00 07:00 Intake Total 1080 ml 480 ml Balance 1080 ml 480 ml Labs: Laboratory Tests Test 07/15/21 11:25 07/15/21 16:17 07/15/21 19:07 07/15/21 20:29 Glucose (Fingerstick) 290 mg/dL (70-99) H 274 mg/dL (70-99) H 306 mg/dL (70-99) H Urine Collection Type Clean catch Urine Color Yellow Urine Clarity Hazy Urine pH 6.0 Urine Specific [place] 1.025 Urine Protein Neg (NEG-TRACE) Urine Glucose (UA) >=1000 mg/dL (NEG) Urine Ketones (Stick) Trace mg/dL (NEG) Urine Blood Trace (NEG) Urine Nitrite Neg (NEG) Urine Bilirubin Neg (NEG) Urine Urobilinogen Dipstick 1.0 mg/dL (0.2 mg/dL) Urine Leukocyte Esterase Neg (NEG) Urine RBC Occ /HPF (0-2) Urine WBC 20-40 /HPF (0-4) Urine Squamous Epithelial Cells Mod /LPF Urine Bacteria Few /HPF (0-FEW) Test 07/16/21 07:33 Glucose (Fingerstick) 231 mg/dL (70-99) H Current Medications: Meds: Laboratory Tests Test 07/15/21 11:25 07/15/21 16:17 07/15/21 19:07 07/15/21 20:29 Glucose (Fingerstick) 290 mg/dL 274 mg/dL 306 mg/dL Urine Collection Type Clean catch Urine Color Yellow Urine Clarity Hazy Urine pH 6.0 Urine Specific [place] 1.025 Urine Protein Neg Urine Glucose (UA) >=1000 mg/dL Urine Ketones (Stick) Trace mg/dL Urine Blood Trace Urine Nitrite Neg Urine Bilirubin Neg Urine Urobilinogen Dipstick 1.0 mg/dL Urine Leukocyte Esterase Neg Urine RBC Occ /HPF Urine WBC 20-40 /HPF Urine Squamous Epithelial Cells Mod /LPF Urine Bacteria Few /HPF Test 07/16/21 07:33 Glucose (Fingerstick) 231 mg/dL Current Medications Medications (Trade) Dose Ordered Sig/Leonides Route PRN Reason Start Time Stop Time Status Last Admin Dose Admin Acetaminophen (Tylenol) 650 mg PRN Q6HRS PRN PO MILD PAIN / TEMP > 100.3'F 07/03/21 16:30 Cancel Multi-Ingredient Ointment (Analgesic [place]) 1 swathi PRN QID PRN TP MUSCLE PAIN 07/03/21 16:30 Al Hydroxide/Mg Hydroxide (Mylanta Plus Xs) 15 ml PRN AFTMEALHC PRN PO DYSPEPSIA 07/03/21 16:30 Magnesium Hydroxide (Milk Of Magnesia) 2,400 mg PRN QHS PRN PO 2ND CHOICE CONSTIPATION 07/03/21 16:30 Acetaminophen (Tylenol) 650 mg PRN Q4HRS PRN PO MILD PAIN / TEMP > 100.3'F 07/03/21 18:45 07/09/21 05:36 Aspirin (Aspirin Enteric Coated) 81 mg DAILY PO 07/04/21 09:00 07/15/21 08:20 Bisacodyl (Dulcolax Tab) 5 mg PRN DAILY PRN PO 3RD CHOICE CONSTIPATION 07/03/21 18:45 Clonazepam (KlonoPIN) 0.5 mg TID PO 07/03/21 21:00 07/15/21 20:33 Diclofenac Sodium (Voltaren) 1 swathi PRN Q6HRS PRN TP PAIN 07/03/21 18:45 Divalproex Sodium (Depakote Sprinkles) 250 mg BID PO 07/03/21 21:00 07/06/21 23:37 DC 07/06/21 20:18 Furosemide (Lasix) 40 mg DAILY PO 07/04/21 09:00 07/15/21 08:21 Ibuprofen (Motrin) 400 mg PRN Q6HRS PRN PO INFLAMMATION / TEMP > 100.3'F 07/03/21 18:45 Albuterol/ Ipratropium (Combivent Respimat 20-100 Mcg) 1 puff PRN BID PRN INH SHORTNESS OF BREATH 07/03/21 19:15 Levothyroxine Sodium (Synthroid) 175 mcg DAILY06 PO 07/04/21 06:00 07/15/21 05:13 Al Hydroxide/Mg Hydroxide (Mylanta Plus Xs) 15 ml PRN AFTMEALHC PRN PO DYSPEPSIA 07/03/21 18:45 UNV Magnesium Oxide (Magnesium Oxide) 400 mg DAILY PO 07/04/21 09:00 07/15/21 08:25 Multi-Ingredient Ointment (Analgesic [place]) 1 swathi PRN QID PRN TP MUSCLE PAIN 07/03/21 18:45 UNV Mirtazapine (Remeron) 15 mg QHS PO 07/03/21 21:00 07/15/21 20:33 Risperidone (RisperDAL CONSTA) 25 mg Q2WKS IM 07/05/21 09:00 07/05/21 08:27 Spironolactone (Aldactone) 25 mg DAILY PO 07/04/21 09:00 07/15/21 08:21 Trazodone HCl (Desyrel) 25 mg DAILY PO 07/04/21 09:00 07/15/21 08:21 Trazodone HCl (Desyrel) 50 mg BID@1300,1700 PO 07/04/21 13:00 07/15/21 17:26 Betamethasone Dipropion Augmented (Betamethasone Dp Aug 0.05% Cream) 1 swathi PRN BID PRN TP RASH 07/03/21 19:15 Non-Formulary Medication (Eucalyptus Oil/ Menthol/Camphor (Vicks Vaporub Ointment)) 50 gm QHS TP 07/03/21 21:00 UNV Guaifenesin (Robitussin Dm) 10 ml PRN Q4HRS PRN PO COUGH 07/03/21 19:15 Insulin Human Lispro (HumaLOG) 28 units TIDWMEALS SQ 07/04/21 08:00 07/15/21 17:27 Insulin Glargine (Lantus Syringe) 40 unit BID SQ 07/03/21 21:00 07/15/21 20:35 Non-Formulary Medication (Magnesium Hydroxide (Milk Of Magnesia)) 2,400 mg PRN QHS PRN PO CONSTIPATION 07/03/21 18:45 UNV Pantoprazole Sodium (Protonix) 40 mg DAILY PO 07/04/21 09:00 07/15/21 08:21 Oxybutynin Chloride (Ditropan) 5 mg DAILY PO 07/04/21 09:00 07/15/21 08:21 Polyethylene Glycol (miraLAX) 17 gm PRN Q72HRS PRN PO 1ST CHOICE CONSTIPATION 07/03/21 19:15 Potassium Chloride (Klor-Con) 10 meq DAILY PO 07/04/21 09:00 07/04/21 08:42 DC Propranolol HCl (Inderal) 40 mg DAILY PO 07/04/21 09:00 07/15/21 08:22 Vitamin D (Vitamin D3) 2,000 unit DAILY PO 07/04/21 09:00 07/15/21 08:21 Potassium Chloride (Klor-Con) 20 meq BID PO 07/05/21 09:00 07/15/21 20:33 Potassium Chloride (Klor-Con) 40 meq 1X ONCE PO 07/04/21 08:45 07/04/21 08:46 DC 07/04/21 08:59 Potassium Chloride (Klor-Con) 40 meq 1X ONCE PO 07/04/21 09:45 07/04/21 09:46 DC 07/04/21 10:02 Potassium Chloride (Klor-Con) 40 meq 1X ONCE PO 07/04/21 10:45 07/04/21 10:46 DC 07/04/21 10:45 Divalproex Sodium (Depakote Sprinkles) 500 mg BID PO 07/07/21 09:00 07/10/21 16:07 DC 07/10/21 08:09 Divalproex Sodium (Depakote Sprinkles) 750 mg BID PO 07/10/21 21:00 07/15/21 20:33 I have reviewed the current psychotropics carefully including drug interactions. Risk benefit ratio favors no change other than as noted in my dictated progress note. Diagnosis: Problems: (1) Schizoaffective disorder, bipolar type (2) Mild cognitive impairment (3) Anxiety disorder, unspecified (4) Impulse disorder, unspecified (5) Bipolar disorder, curr episode mixed, severe, with psychotic features RAJIV VELAZQUEZ MD Jul 16, 2021 08:36
[2021-07-16] MEDS: DIVALPROEX 125 MG CAP.SPRINK PO SCH ×2 (08:43→21:18)
[2021-07-16] MEDS: PROPRANOLOL 20 MG TABLET. PO SCH (08:43)
[2021-07-16] MEDS: FUROSEMIDE 40 MG TABLET PO SCH (08:43)
[2021-07-16] MEDS: clonazePAM 0.5 MG TABLET PO SCH ×3 (08:43→21:20)
[2021-07-16] MEDS: POTASSIUM CHLORIDE 10 MEQ TABLET.ER. PO SCH ×2 (08:43→21:18)
[2021-07-16] MEDS: SPIRONOLACTONE 25 MG TABLET PO SCH (08:44)
[2021-07-16] MEDS: OXYBUTYNIN CHLORIDE 5 MG TABLET PO SCH (08:44)
[2021-07-16] MEDS: CHOLECALCIFEROL (VITAMIN D3) 1,000 UNIT TABLET PO SCH (08:44)
[2021-07-16] MEDS: MAGNESIUM OXIDE 400 MG TABLET PO SCH (08:44)
[2021-07-16] MEDS: PANTOPRAZOLE 40 MG TABLET. PO SCH (08:44)
[2021-07-16] MEDS: traZODone 50 MG TABLET. PO SCH ×3 (08:44→17:24)
[2021-07-16] MEDS: ASPIRIN ENTERIC COATED 81 MG TABLET.DR. PO SCH (08:44)
[2021-07-16] MEDS: INSULIN LISPRO 300 UNITS/3 ML VIAL. SQ SCH ×3 (08:47→17:25)
[2021-07-16] MEDS: INSULIN GLARGINE SYRINGE. SQ SCH ×2 (09:00→21:19)
--- NOTE | 2021-07-16 10:43 | NUR ---
Nursing note: Pt in dining room at time of AM med pass and assessment. She is pleasant, med compliant and cooperative, though she did question why she had so many pills. Pt had no complaints/concerns at time of assessment. She is currently sitting quietly in the hallway. Will continue to monitor.
[2021-07-16 15:48] VITALS: BP 109/69
[2021-07-16] MEDS: MIRTAZAPINE 15 MG TABLET PO SCH (21:18)
--- NOTE | 2021-07-16 22:11 | PDOC ---
Exam Note: Donte Note: Please also refer to the separate dictated note~for this date of service dictated separately.~Patient seen individually. Discussed the patient with Nursing staff reviewed the chart.~Reviewed interim history and current functioning. Reviewed vital signs,~Labs/ Radiology~and current medications noted below. Continue current treatment with the changes noted in the dictated addendum note Assessment: Vital Signs/I&O: Vital Signs Date Time Temp Pulse Resp B/P (MAP) Pulse Ox O2 Delivery O2 Flow Rate FiO2 07/16/21 15:48 97.4 70 16 109/69 (82) 94 I & O 07/15/21 07/15/21 07/16/21 15:00 23:00 07:00 Intake Total 1080 ml 480 ml Balance 1080 ml 480 ml Labs: Laboratory Tests Test 07/16/21 07:33 07/16/21 11:18 07/16/21 16:35 07/16/21 19:04 Glucose (Fingerstick) 231 mg/dL (70-99) H 284 mg/dL (70-99) H 232 mg/dL (70-99) H 170 mg/dL (70-99) H Current Medications: Meds: Laboratory Tests Test 07/16/21 07:33 07/16/21 11:18 07/16/21 16:35 07/16/21 19:04 Glucose (Fingerstick) 231 mg/dL 284 mg/dL 232 mg/dL 170 mg/dL Current Medications Medications (Trade) Dose Ordered Sig/Leonides Route PRN Reason Start Time Stop Time Status Last Admin Dose Admin Acetaminophen (Tylenol) 650 mg PRN Q6HRS PRN PO MILD PAIN / TEMP > 100.3'F 07/03/21 16:30 Cancel Multi-Ingredient Ointment (Analgesic [place]) 1 swathi PRN QID PRN TP MUSCLE PAIN, 1ST CHOICE 07/03/21 16:30 Al Hydroxide/Mg Hydroxide (Mylanta Plus Xs) 15 ml PRN AFTMEALHC PRN PO DYSPEPSIA 07/03/21 16:30 Magnesium Hydroxide (Milk Of Magnesia) 2,400 mg PRN QHS PRN PO 2ND CHOICE CONSTIPATION 07/03/21 16:30 Acetaminophen (Tylenol) 650 mg PRN Q4HRS PRN PO MILD PAIN / TEMP > 100.3'F 07/03/21 18:45 07/09/21 05:36 Aspirin (Aspirin Enteric Coated) 81 mg DAILY PO 07/04/21 09:00 07/16/21 08:44 Bisacodyl (Dulcolax Tab) 5 mg PRN DAILY PRN PO 3RD CHOICE CONSTIPATION 07/03/21 18:45 Clonazepam (KlonoPIN) 0.5 mg TID PO 07/03/21 21:00 07/16/21 21:20 Diclofenac Sodium (Voltaren) 1 swathi PRN Q6HRS PRN TP MUSCLE PAIN, 2ND CHOICE 07/03/21 18:45 Divalproex Sodium (Depakote Sprinkles) 250 mg BID PO 07/03/21 21:00 07/06/21 23:37 DC 07/06/21 20:18 Furosemide (Lasix) 40 mg DAILY PO 07/04/21 09:00 07/16/21 08:43 Ibuprofen (Motrin) 400 mg PRN Q6HRS PRN PO INFLAMMATION / TEMP > 100.3'F 07/03/21 18:45 Albuterol/ Ipratropium (Combivent Respimat 20-100 Mcg) 1 puff PRN BID PRN INH SHORTNESS OF BREATH 07/03/21 19:15 Levothyroxine Sodium (Synthroid) 175 mcg DAILY06 PO 07/04/21 06:00 07/15/21 05:13 Al Hydroxide/Mg Hydroxide (Mylanta Plus Xs) 15 ml PRN AFTMEALHC PRN PO DYSPEPSIA 07/03/21 18:45 UNV Magnesium Oxide (Magnesium Oxide) 400 mg DAILY PO 07/04/21 09:00 07/16/21 08:44 Multi-Ingredient Ointment (Analgesic [place]) 1 swathi PRN QID PRN TP MUSCLE PAIN 07/03/21 18:45 UNV Mirtazapine (Remeron) 15 mg QHS PO 07/03/21 21:00 07/16/21 21:18 Risperidone (RisperDAL CONSTA) 25 mg Q2WKS IM 07/05/21 09:00 07/05/21 08:27 Spironolactone (Aldactone) 25 mg DAILY PO 07/04/21 09:00 07/16/21 08:44 Trazodone HCl (Desyrel) 25 mg DAILY PO 07/04/21 09:00 07/16/21 08:44 Trazodone HCl (Desyrel) 50 mg BID@1300,1700 PO 07/04/21 13:00 07/16/21 17:24 Betamethasone Dipropion Augmented (Betamethasone Dp Aug 0.05% Cream) 1 swathi PRN BID PRN TP RASH 07/03/21 19:15 Non-Formulary Medication (Eucalyptus Oil/ Menthol/Camphor (Vicks Vaporub Ointment)) 50 gm QHS TP 07/03/21 21:00 UNV Guaifenesin (Robitussin Dm) 10 ml PRN Q4HRS PRN PO COUGH 07/03/21 19:15 Insulin Human Lispro (HumaLOG) 28 units TIDWMEALS SQ 07/04/21 08:00 07/16/21 17:25 Insulin Glargine (Lantus Syringe) 40 unit BID SQ 07/03/21 21:00 07/16/21 21:19 Non-Formulary Medication (Magnesium Hydroxide (Milk Of Magnesia)) 2,400 mg PRN QHS PRN PO CONSTIPATION 07/03/21 18:45 UNV Pantoprazole Sodium (Protonix) 40 mg DAILY PO 07/04/21 09:00 07/16/21 08:44 Oxybutynin Chloride (Ditropan) 5 mg DAILY PO 07/04/21 09:00 07/16/21 08:44 Polyethylene Glycol (miraLAX) 17 gm PRN Q72HRS PRN PO 1ST CHOICE CONSTIPATION 07/03/21 19:15 Potassium Chloride (Klor-Con) 10 meq DAILY PO 07/04/21 09:00 07/04/21 08:42 DC Propranolol HCl (Inderal) 40 mg DAILY PO 07/04/21 09:00 07/16/21 08:43 Vitamin D (Vitamin D3) 2,000 unit DAILY PO 07/04/21 09:00 07/16/21 08:44 Potassium Chloride (Klor-Con) 20 meq BID PO 07/05/21 09:00 07/16/21 21:18 Potassium Chloride (Klor-Con) 40 meq 1X ONCE PO 07/04/21 08:45 07/04/21 08:46 DC 07/04/21 08:59 Potassium Chloride (Klor-Con) 40 meq 1X ONCE PO 07/04/21 09:45 07/04/21 09:46 DC 07/04/21 10:02 Potassium Chloride (Klor-Con) 40 meq 1X ONCE PO 07/04/21 10:45 07/04/21 10:46 DC 07/04/21 10:45 Divalproex Sodium (Depakote Sprinkles) 500 mg BID PO 07/07/21 09:00 07/10/21 16:07 DC 07/10/21 08:09 Divalproex Sodium (Depakote Sprinkles) 750 mg BID PO 07/10/21 21:00 07/16/21 21:18 I have reviewed the current psychotropics carefully including drug interactions. Risk benefit ratio favors no change other than as noted in my dictated progress note. Diagnosis: Problems: (1) Schizoaffective disorder, bipolar type (2) Mild cognitive impairment (3) Anxiety disorder, unspecified (4) Impulse disorder, unspecified (5) Bipolar disorder, curr episode mixed, severe, with psychotic features RAJIV VELAZQUEZ MD Jul 16, 2021 22:11
--- NOTE | 2021-07-16 22:31 | NUR ---
Patient was sitting in the hallway socializing with peers. She was compliant with medications and cooperative with assessment. Patient had no adverse behaviors this shift.
[2021-07-17 06:00] VITALS: BP 147/75
[2021-07-17] MEDS: LEVOTHYROXINE 175 MCG TABLET PO SCH (06:27)
--- NOTE | 2021-07-17 08:18 | PDOC ---
Exam Note: Donte Note: This note is a late entry for 07/16/2021 covers elements not covered in my initial note. Subjective: The patient was seen individually in the evening of 07/16/2021 with Shakira COPELAND, discussed and reviewed the chart. The patient slept 5 hours previous night. She has done better during the day but in the evening she was more irritable, somewhat paranoid and this was quite evident even during my visit as noted below. Blood sugar is slightly elevated. We will defer to Dr. Delatorre and urine has reflex to culture. Review of Systems: Ambulation impaired. No CV, , pulmonary, eye, ENT system symptoms on review. Mental Status Exam: The patient is reasonably oriented. Speech has some latency, coherent. She had a rather intense stare today and remarked on something physical on my forehead. When I explained to her I was not sure what that was. She suddenly remarked back. I know you dont like me. She seemed paranoid, suspicious and continued to stare intensely. Abstraction fair. Computation impaired. Language function intact. Attention span short. Mood and affect appears somewhat dysphoric. No suicidal or homicidal ideation. She is somewhat distractible. Laboratory Data: Reviewed. Impression: Schizo-affective disorder bipolar type mixed with psychotic features. Anxiety disorder unspecified. Impulse control disorder unspecified. Plan: Continue current psychotropics. Await urine C&S and treat as indicated. Maintain rest of the psychotropics unchanged. Valproic acid level therapeutic at 73. We may need to adjust Risperdal if paranoia persists despite resolution of UTI. Assessment: Vital Signs/I&O: Vital Signs Date Time Temp Pulse Resp B/P (MAP) Pulse Ox O2 Delivery O2 Flow Rate FiO2 07/17/21 06:00 97.8 74 18 147/75 (99) 93 I & O 07/16/21 07/16/21 07/17/21 15:00 23:00 07:00 Intake Total 720 ml 660 ml Balance 720 ml 660 ml Labs: Laboratory Tests Test 07/16/21 11:18 07/16/21 16:35 07/16/21 19:04 07/17/21 07:51 Glucose (Fingerstick) 284 mg/dL (70-99) H 232 mg/dL (70-99) H 170 mg/dL (70-99) H 111 mg/dL (70-99) H Current Medications: Meds: Laboratory Tests Test 07/16/21 11:18 07/16/21 16:35 07/16/21 19:04 07/17/21 07:51 Glucose (Fingerstick) 284 mg/dL 232 mg/dL 170 mg/dL 111 mg/dL Current Medications Medications (Trade) Dose Ordered Sig/Leonides Route PRN Reason Start Time Stop Time Status Last Admin Dose Admin Acetaminophen (Tylenol) 650 mg PRN Q6HRS PRN PO MILD PAIN / TEMP > 100.3'F 07/03/21 16:30 Cancel Multi-Ingredient Ointment (Analgesic [place]) 1 swathi PRN QID PRN TP MUSCLE PAIN, 1ST CHOICE 07/03/21 16:30 Al Hydroxide/Mg Hydroxide (Mylanta Plus Xs) 15 ml PRN AFTMEALHC PRN PO DYSPEPSIA 07/03/21 16:30 Magnesium Hydroxide (Milk Of Magnesia) 2,400 mg PRN QHS PRN PO 2ND CHOICE CONSTIPATION 07/03/21 16:30 Acetaminophen (Tylenol) 650 mg PRN Q4HRS PRN PO MILD PAIN / TEMP > 100.3'F 07/03/21 18:45 07/09/21 05:36 Aspirin (Aspirin Enteric Coated) 81 mg DAILY PO 07/04/21 09:00 07/16/21 08:44 Bisacodyl (Dulcolax Tab) 5 mg PRN DAILY PRN PO 3RD CHOICE CONSTIPATION 07/03/21 18:45 Clonazepam (KlonoPIN) 0.5 mg TID PO 07/03/21 21:00 07/16/21 21:20 Diclofenac Sodium (Voltaren) 1 swathi PRN Q6HRS PRN TP MUSCLE PAIN, 2ND CHOICE 07/03/21 18:45 Divalproex Sodium (Depakote Sprinkles) 250 mg BID PO 07/03/21 21:00 07/06/21 23:37 DC 07/06/21 20:18 Furosemide (Lasix) 40 mg DAILY PO 07/04/21 09:00 07/16/21 08:43 Ibuprofen (Motrin) 400 mg PRN Q6HRS PRN PO INFLAMMATION / TEMP > 100.3'F 07/03/21 18:45 Albuterol/ Ipratropium (Combivent Respimat 20-100 Mcg) 1 puff PRN BID PRN INH SHORTNESS OF BREATH 07/03/21 19:15 Levothyroxine Sodium (Synthroid) 175 mcg DAILY06 PO 07/04/21 06:00 07/17/21 06:27 Al Hydroxide/Mg Hydroxide (Mylanta Plus Xs) 15 ml PRN AFTMEALHC PRN PO DYSPEPSIA 07/03/21 18:45 UNV Magnesium Oxide (Magnesium Oxide) 400 mg DAILY PO 07/04/21 09:00 07/16/21 08:44 Multi-Ingredient Ointment (Analgesic [place]) 1 swathi PRN QID PRN TP MUSCLE PAIN 07/03/21 18:45 UNV Mirtazapine (Remeron) 15 mg QHS PO 07/03/21 21:00 07/16/21 21:18 Risperidone (RisperDAL CONSTA) 25 mg Q2WKS IM 07/05/21 09:00 07/05/21 08:27 Spironolactone (Aldactone) 25 mg DAILY PO 07/04/21 09:00 07/16/21 08:44 Trazodone HCl (Desyrel) 25 mg DAILY PO 07/04/21 09:00 07/16/21 08:44 Trazodone HCl (Desyrel) 50 mg BID@1300,1700 PO 07/04/21 13:00 07/16/21 17:24 Betamethasone Dipropion Augmented (Betamethasone Dp Aug 0.05% Cream) 1 swathi PRN BID PRN TP RASH 07/03/21 19:15 Non-Formulary Medication (Eucalyptus Oil/ Menthol/Camphor (Vicks Vaporub Ointment)) 50 gm QHS TP 07/03/21 21:00 UNV Guaifenesin (Robitussin Dm) 10 ml PRN Q4HRS PRN PO COUGH 07/03/21 19:15 Insulin Human Lispro (HumaLOG) 28 units TIDWMEALS SQ 07/04/21 08:00 07/16/21 17:25 Insulin Glargine (Lantus Syringe) 40 unit BID SQ 07/03/21 21:00 07/16/21 21:19 Non-Formulary Medication (Magnesium Hydroxide (Milk Of Magnesia)) 2,400 mg PRN QHS PRN PO CONSTIPATION 07/03/21 18:45 UNV Pantoprazole Sodium (Protonix) 40 mg DAILY PO 07/04/21 09:00 07/16/21 08:44 Oxybutynin Chloride (Ditropan) 5 mg DAILY PO 07/04/21 09:00 07/16/21 08:44 Polyethylene Glycol (miraLAX) 17 gm PRN Q72HRS PRN PO 1ST CHOICE CONSTIPATION 07/03/21 19:15 Potassium Chloride (Klor-Con) 10 meq DAILY PO 07/04/21 09:00 07/04/21 08:42 DC Propranolol HCl (Inderal) 40 mg DAILY PO 07/04/21 09:00 07/16/21 08:43 Vitamin D (Vitamin D3) 2,000 unit DAILY PO 07/04/21 09:00 07/16/21 08:44 Potassium Chloride (Klor-Con) 20 meq BID PO 07/05/21 09:00 07/16/21 21:18 Potassium Chloride (Klor-Con) 40 meq 1X ONCE PO 07/04/21 08:45 07/04/21 08:46 DC 07/04/21 08:59 Potassium Chloride (Klor-Con) 40 meq 1X ONCE PO 07/04/21 09:45 07/04/21 09:46 DC 07/04/21 10:02 Potassium Chloride (Klor-Con) 40 meq 1X ONCE PO 07/04/21 10:45 07/04/21 10:46 DC 07/04/21 10:45 Divalproex Sodium (Depakote Sprinkles) 500 mg BID PO 07/07/21 09:00 07/10/21 16:07 DC 07/10/21 08:09 Divalproex Sodium (Depakote Sprinkles) 750 mg BID PO 07/10/21 21:00 07/16/21 21:18 I have reviewed the current psychotropics carefully including drug interactions. Risk benefit ratio favors no change other than as noted in my dictated progress note. Diagnosis: Problems: (1) Schizoaffective disorder, bipolar type (2) Mild cognitive impairment (3) Anxiety disorder, unspecified (4) Impulse disorder, unspecified (5) Bipolar disorder, curr episode mixed, severe, with psychotic features RAJIV VELAZQUEZ MD Jul 17, 2021 08:18
[2021-07-17] MEDS: INSULIN GLARGINE SYRINGE. SQ SCH ×2 (08:28→21:10)
[2021-07-17] MEDS: INSULIN LISPRO 300 UNITS/3 ML VIAL. SQ SCH ×3 (08:29→17:41)
[2021-07-17] MEDS: OXYBUTYNIN CHLORIDE 5 MG TABLET PO SCH (08:31)
[2021-07-17] MEDS: FUROSEMIDE 40 MG TABLET PO SCH (08:31)
[2021-07-17] MEDS: MAGNESIUM OXIDE 400 MG TABLET PO SCH (08:31)
[2021-07-17] MEDS: CHOLECALCIFEROL (VITAMIN D3) 1,000 UNIT TABLET PO SCH (08:32)
[2021-07-17] MEDS: clonazePAM 0.5 MG TABLET PO SCH ×3 (08:32→19:52)
[2021-07-17] MEDS: POTASSIUM CHLORIDE 10 MEQ TABLET.ER. PO SCH ×2 (08:32→19:53)
[2021-07-17] MEDS: DIVALPROEX 125 MG CAP.SPRINK PO SCH ×2 (08:32→19:53)
[2021-07-17] MEDS: PANTOPRAZOLE 40 MG TABLET. PO SCH (08:32)
[2021-07-17] MEDS: SPIRONOLACTONE 25 MG TABLET PO SCH (08:32)
[2021-07-17] MEDS: PROPRANOLOL 20 MG TABLET. PO SCH (08:33)
[2021-07-17] MEDS: traZODone 50 MG TABLET. PO SCH ×3 (08:33→17:41)
[2021-07-17] MEDS: ASPIRIN ENTERIC COATED 81 MG TABLET.DR. PO SCH (08:33)
[2021-07-17] MEDS: IBUPROFEN 400 MG TABLET. PO PRN (09:07)
[2021-07-17 16:06] VITALS: BP 133/73
[2021-07-17] MEDS: MIRTAZAPINE 15 MG TABLET PO SCH (19:52)
--- NOTE | 2021-07-17 23:15 | NUR ---
Patient is located in the day room on assumption of care, watching television with peers. She is flat, depressed. Pleasant and appropriate in her interactions with this nurse. Compliant with assessments and medications whole. Denies SI, denies any pain or discomfort. No agitation. Patient appears to be sleeping comfortably at present time. Will continue to monitor.
[2021-07-18] MEDS: LEVOTHYROXINE 175 MCG TABLET PO SCH (05:22)
[2021-07-18 06:55] VITALS: BP 135/80
[2021-07-18] MEDS: CHOLECALCIFEROL (VITAMIN D3) 1,000 UNIT TABLET PO SCH (08:21)
[2021-07-18] MEDS: POTASSIUM CHLORIDE 10 MEQ TABLET.ER. PO SCH ×2 (08:22→20:17)
[2021-07-18] MEDS: DIVALPROEX 125 MG CAP.SPRINK PO SCH ×2 (08:22→20:17)
[2021-07-18] MEDS: SPIRONOLACTONE 25 MG TABLET PO SCH (08:22)
[2021-07-18] MEDS: OXYBUTYNIN CHLORIDE 5 MG TABLET PO SCH (08:23)
[2021-07-18] MEDS: ASPIRIN ENTERIC COATED 81 MG TABLET.DR. PO SCH (08:23)
[2021-07-18] MEDS: PANTOPRAZOLE 40 MG TABLET. PO SCH (08:23)
[2021-07-18] MEDS: FUROSEMIDE 40 MG TABLET PO SCH (08:23)
[2021-07-18] MEDS: PROPRANOLOL 20 MG TABLET. PO SCH (08:24)
[2021-07-18] MEDS: traZODone 50 MG TABLET. PO SCH ×3 (08:24→17:26)
[2021-07-18] MEDS: MAGNESIUM OXIDE 400 MG TABLET PO SCH (08:25)
[2021-07-18] MEDS: clonazePAM 0.5 MG TABLET PO SCH ×3 (08:28→20:16)
[2021-07-18] MEDS: INSULIN LISPRO 300 UNITS/3 ML VIAL. SQ SCH ×3 (08:30→17:26)
[2021-07-18] MEDS: INSULIN GLARGINE SYRINGE. SQ SCH ×2 (08:55→21:59)
--- NOTE | 2021-07-18 10:13 | NUR ---
RN DAY SHIFT NOTE: PT PRESENTS WITH A FLAT AFFECT. PT IS MEDICATION COMPLIANT. PT MAKES NEEDS KNOWN TO STAFF. PT FOLLOW RULES AND ROUTINES ON THE UNIT. PT IS LOW-ALFONSO ON THE UNIT. PT IS NOTED TO SPEND TIME IN THE HALLWAY LISTENING TO MUSIC. PT CONTINUES TO HAVE A GOOD APPETITE. PT SLEPT 7.25 HOURS LAST NIGHT. PTS VITALS ARE WNL. WILL CONTINUE TO MONITOR.
--- NOTE | 2021-07-18 11:14 | NUR ---
WEEKLY ACTIVITY THERAPY NOTE Date of Admission:07/03/21 Date of AT Assessment: 07/05/21 Precipitating behaviors that initiated intake and admission: refusing meds, decreased blood sugars, irritable, agitated, verbally aggressive, swearing, screaming Goal aimed: to increase stimulation and socialization Initial Goal: Pt. will participate in at least five individual or Activity Therapy group sessions per week. Weekly progress towards goal: did not achieve, / Group participation level: 1 min, 3 full Weekly highlights: watched movie in day room , contributed to discussion about labor on Thursday Behaviors observed: mostly pleasant and calm, Thursday she reached out for AT's hand and when AT put her hand out pt squeezed her hand as she dug nails as well Plan: no change to goal Beneficial adaptations: music
[2021-07-18] MEDS: risperiDONE 1 MG TABLET. PO SCH (12:16)
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
[2021-07-18 15:40] VITALS: BP 109/76
[2021-07-18] MEDS: MIRTAZAPINE 15 MG TABLET PO SCH (20:16)
--- NOTE | 2021-07-18 21:40 | PDOC ---
Exam Note: Donte Note: Please also refer to the separate dictated note~for this date of service dictated separately.~Patient seen individually. Discussed the patient with Nursing staff reviewed the chart.~Reviewed interim history and current functioning. Reviewed vital signs,~Labs/ Radiology~and current medications noted below. Continue current treatment with the changes noted in the dictated addendum note Assessment: Vital Signs/I&O: Vital Signs Date Time Temp Pulse Resp B/P (MAP) Pulse Ox O2 Delivery O2 Flow Rate FiO2 07/18/21 15:40 109.0 79 20 109/76 (87) 95 I & O 07/17/21 07/17/21 07/18/21 15:00 23:00 07:00 Intake Total 720 ml 600 ml Balance 720 ml 600 ml Labs: Laboratory Tests Test 07/18/21 07:17 07/18/21 12:11 07/18/21 16:32 07/18/21 19:17 Glucose (Fingerstick) 197 mg/dL (70-99) H 398 mg/dL (70-99) H 301 mg/dL (70-99) H 249 mg/dL (70-99) H Current Medications: Meds: Laboratory Tests Test 07/18/21 07:17 07/18/21 12:11 07/18/21 16:32 07/18/21 19:17 Glucose (Fingerstick) 197 mg/dL 398 mg/dL 301 mg/dL 249 mg/dL Current Medications Medications (Trade) Dose Ordered Sig/Leonides Route PRN Reason Start Time Stop Time Status Last Admin Dose Admin Acetaminophen (Tylenol) 650 mg PRN Q6HRS PRN PO MILD PAIN / TEMP > 100.3'F 07/03/21 16:30 Cancel Multi-Ingredient Ointment (Analgesic [place]) 1 swathi PRN QID PRN TP MUSCLE PAIN, 1ST CHOICE 07/03/21 16:30 Al Hydroxide/Mg Hydroxide (Mylanta Plus Xs) 15 ml PRN AFTMEALHC PRN PO DYSPEPSIA 07/03/21 16:30 Magnesium Hydroxide (Milk Of Magnesia) 2,400 mg PRN QHS PRN PO 2ND CHOICE CONSTIPATION 07/03/21 16:30 Acetaminophen (Tylenol) 650 mg PRN Q4HRS PRN PO MILD PAIN / TEMP > 100.3'F 07/03/21 18:45 07/09/21 05:36 Aspirin (Aspirin Enteric Coated) 81 mg DAILY PO 07/04/21 09:00 07/18/21 08:23 Bisacodyl (Dulcolax Tab) 5 mg PRN DAILY PRN PO 3RD CHOICE CONSTIPATION 07/03/21 18:45 Clonazepam (KlonoPIN) 0.5 mg TID PO 07/03/21 21:00 07/18/21 20:16 Diclofenac Sodium (Voltaren) 1 swathi PRN Q6HRS PRN TP MUSCLE PAIN, 2ND CHOICE 07/03/21 18:45 Divalproex Sodium (Depakote Sprinkles) 250 mg BID PO 07/03/21 21:00 07/06/21 23:37 DC 07/06/21 20:18 Furosemide (Lasix) 40 mg DAILY PO 07/04/21 09:00 07/18/21 08:23 Ibuprofen (Motrin) 400 mg PRN Q6HRS PRN PO INFLAMMATION / TEMP > 100.3'F 07/03/21 18:45 07/17/21 09:07 Albuterol/ Ipratropium (Combivent Respimat 20-100 Mcg) 1 puff PRN BID PRN INH SHORTNESS OF BREATH 07/03/21 19:15 Levothyroxine Sodium (Synthroid) 175 mcg DAILY06 PO 07/04/21 06:00 07/18/21 05:22 Al Hydroxide/Mg Hydroxide (Mylanta Plus Xs) 15 ml PRN AFTMEALHC PRN PO DYSPEPSIA 07/03/21 18:45 UNV Magnesium Oxide (Magnesium Oxide) 400 mg DAILY PO 07/04/21 09:00 07/18/21 08:25 Multi-Ingredient Ointment (Analgesic [place]) 1 swathi PRN QID PRN TP MUSCLE PAIN 07/03/21 18:45 UNV Mirtazapine (Remeron) 15 mg QHS PO 07/03/21 21:00 07/18/21 20:16 Risperidone (RisperDAL CONSTA) 25 mg Q2WKS IM 07/05/21 09:00 07/05/21 08:27 Spironolactone (Aldactone) 25 mg DAILY PO 07/04/21 09:00 07/18/21 08:22 Trazodone HCl (Desyrel) 25 mg DAILY PO 07/04/21 09:00 07/18/21 08:24 Trazodone HCl (Desyrel) 50 mg BID@1300,1700 PO 07/04/21 13:00 07/18/21 17:26 Betamethasone Dipropion Augmented (Betamethasone Dp Aug 0.05% Cream) 1 swathi PRN BID PRN TP RASH 07/03/21 19:15 Non-Formulary Medication (Eucalyptus Oil/ Menthol/Camphor (Vicks Vaporub Ointment)) 50 gm QHS TP 07/03/21 21:00 UNV Guaifenesin (Robitussin Dm) 10 ml PRN Q4HRS PRN PO COUGH 07/03/21 19:15 Insulin Human Lispro (HumaLOG) 28 units TIDWMEALS SQ 07/04/21 08:00 07/18/21 17:26 Insulin Glargine (Lantus Syringe) 40 unit BID SQ 07/03/21 21:00 07/18/21 08:55 Non-Formulary Medication (Magnesium Hydroxide (Milk Of Magnesia)) 2,400 mg PRN QHS PRN PO CONSTIPATION 07/03/21 18:45 UNV Pantoprazole Sodium (Protonix) 40 mg DAILY PO 07/04/21 09:00 07/18/21 08:23 Oxybutynin Chloride (Ditropan) 5 mg DAILY PO 07/04/21 09:00 07/18/21 08:23 Polyethylene Glycol (miraLAX) 17 gm PRN Q72HRS PRN PO 1ST CHOICE CONSTIPATION 07/03/21 19:15 Potassium Chloride (Klor-Con) 10 meq DAILY PO 07/04/21 09:00 07/04/21 08:42 DC Propranolol HCl (Inderal) 40 mg DAILY PO 07/04/21 09:00 07/18/21 08:24 Vitamin D (Vitamin D3) 2,000 unit DAILY PO 07/04/21 09:00 07/18/21 08:21 Potassium Chloride (Klor-Con) 20 meq BID PO 07/05/21 09:00 07/18/21 20:17 Potassium Chloride (Klor-Con) 40 meq 1X ONCE PO 07/04/21 08:45 07/04/21 08:46 DC 07/04/21 08:59 Potassium Chloride (Klor-Con) 40 meq 1X ONCE PO 07/04/21 09:45 07/04/21 09:46 DC 07/04/21 10:02 Potassium Chloride (Klor-Con) 40 meq 1X ONCE PO 07/04/21 10:45 07/04/21 10:46 DC 07/04/21 10:45 Divalproex Sodium (Depakote Sprinkles) 500 mg BID PO 07/07/21 09:00 07/10/21 16:07 DC 07/10/21 08:09 Divalproex Sodium (Depakote Sprinkles) 750 mg BID PO 07/10/21 21:00 07/18/21 20:17 Risperidone (RisperDAL) 1 mg DAILY PO 07/18/21 12:00 07/18/21 12:16 Current Medications Medications (Trade) Dose Ordered Sig/Leonides Route PRN Reason Start Time Stop Time Status Last Admin Dose Admin Risperidone (RisperDAL) 1 mg DAILY PO 07/18/21 12:00 07/18/21 12:16 I have reviewed the current psychotropics carefully including drug interactions. Risk benefit ratio favors no change other than as noted in my dictated progress note. Diagnosis: Problems: (1) Schizoaffective disorder, bipolar type (2) Mild cognitive impairment (3) Anxiety disorder, unspecified (4) Impulse disorder, unspecified (5) Bipolar disorder, curr episode mixed, severe, with psychotic features RAJIV VELAZQUEZ MD Jul 18, 2021 21:40
--- NOTE | 2021-07-18 23:54 | NUR ---
Nursing Note The patient was located in her room for her assessment and medication pass. The patient was alert to name and location but was drowsy during interactions. The patient took her medication whole. The patient has remained withdrawn to her room so far this shift. The patient is currently sleeping.
[2021-07-19] MEDS: LEVOTHYROXINE 175 MCG TABLET PO SCH (05:52)
[2021-07-19 05:58] VITALS: BP 134/77
[2021-07-19] MEDS: OXYBUTYNIN CHLORIDE 5 MG TABLET PO SCH ×2 (08:47→20:24)
[2021-07-19] MEDS: PROPRANOLOL 20 MG TABLET. PO SCH (08:47)
[2021-07-19] MEDS: ASPIRIN ENTERIC COATED 81 MG TABLET.DR. PO SCH (08:47)
[2021-07-19] MEDS: MAGNESIUM OXIDE 400 MG TABLET PO SCH (08:48)
[2021-07-19] MEDS: PANTOPRAZOLE 40 MG TABLET. PO SCH (08:48)
[2021-07-19] MEDS: CHOLECALCIFEROL (VITAMIN D3) 1,000 UNIT TABLET PO SCH (08:48)
[2021-07-19] MEDS: DIVALPROEX 125 MG CAP.SPRINK PO SCH ×2 (08:48→20:25)
[2021-07-19] MEDS: POTASSIUM CHLORIDE 10 MEQ TABLET.ER. PO SCH ×2 (08:49→20:24)
[2021-07-19] MEDS: risperiDONE 1 MG TABLET. PO SCH (08:49)
[2021-07-19] MEDS: traZODone 50 MG TABLET. PO SCH ×3 (08:49→17:36)
[2021-07-19] MEDS: FUROSEMIDE 40 MG TABLET PO SCH (08:49)
[2021-07-19] MEDS: clonazePAM 0.5 MG TABLET PO SCH ×3 (08:49→20:24)
[2021-07-19] MEDS: SPIRONOLACTONE 25 MG TABLET PO SCH (08:49)
[2021-07-19] MEDS: INSULIN LISPRO 300 UNITS/3 ML VIAL. SQ SCH ×3 (08:53→17:38)
[2021-07-19] MEDS: INSULIN GLARGINE SYRINGE. SQ SCH ×2 (08:54→20:26)
[2021-07-19] MEDS: risperiDONE MICROSPHERES 25 MG/2 ML DISP.SYRIN. IM SCH (13:02)
[2021-07-19 15:39] VITALS: BP 124/73
[2021-07-19] MEDS ORDERED: OXYBUTYNIN CHLORIDE 5 MG TABLET PO SCH (18:00)
--- NOTE | 2021-07-19 18:27 | NUR ---
Patient has been flat, mildly confused, and withdrawn most of this shift. She has complaints of frequent urination and stated that she has lower lung pneumonia. MD informed during rounds, new orders recieved. Will continue to monitor and report to oncoming shift.
[2021-07-19] MEDS: MIRTAZAPINE 15 MG TABLET PO SCH (20:24)
[2021-07-19] MEDS: CEFDINIR 300 MG CAPSULE PO SCH (20:24)
[2021-07-19] MEDS: LACTOBACILLUS RHAMNOSUS GG 1 CAPSULE. PO SCH (20:24)
--- NOTE | 2021-07-19 21:54 | PDOC ---
Exam Note: Donte Note: Please also refer to the separate dictated note~for this date of service dictated separately.~Patient seen individually. Discussed the patient with Nursing staff reviewed the chart.~Reviewed interim history and current functioning. Reviewed vital signs,~Labs/ Radiology~and current medications noted below. Continue current treatment with the changes noted in the dictated addendum note Assessment: Vital Signs/I&O: Vital Signs Date Time Temp Pulse Resp B/P (MAP) Pulse Ox O2 Delivery O2 Flow Rate FiO2 07/19/21 15:39 97.3 75 19 124/73 (90) 94 I & O 07/18/21 07/18/21 07/19/21 14:59 22:59 06:59 Intake Total 1030 ml 240 ml Balance 1030 ml 240 ml Labs: Laboratory Tests Test 07/18/21 22:04 07/19/21 07:10 07/19/21 11:32 07/19/21 16:42 Glucose (Fingerstick) 219 mg/dL (70-99) H 123 mg/dL (70-99) H 165 mg/dL (70-99) H 118 mg/dL (70-99) H Test 07/19/21 19:22 Glucose (Fingerstick) 154 mg/dL (70-99) H Current Medications: Meds: Laboratory Tests Test 07/18/21 22:04 07/19/21 07:10 07/19/21 11:32 07/19/21 16:42 Glucose (Fingerstick) 219 mg/dL 123 mg/dL 165 mg/dL 118 mg/dL Test 07/19/21 19:22 Glucose (Fingerstick) 154 mg/dL Current Medications Medications (Trade) Dose Ordered Sig/Leonides Route PRN Reason Start Time Stop Time Status Last Admin Dose Admin Acetaminophen (Tylenol) 650 mg PRN Q6HRS PRN PO MILD PAIN / TEMP > 100.3'F 07/03/21 16:30 Cancel Multi-Ingredient Ointment (Analgesic [place]) 1 swathi PRN QID PRN TP MUSCLE PAIN, 1ST CHOICE 07/03/21 16:30 Al Hydroxide/Mg Hydroxide (Mylanta Plus Xs) 15 ml PRN AFTMEALHC PRN PO DYSPEPSIA 07/03/21 16:30 Magnesium Hydroxide (Milk Of Magnesia) 2,400 mg PRN QHS PRN PO 2ND CHOICE CONSTIPATION 07/03/21 16:30 Acetaminophen (Tylenol) 650 mg PRN Q4HRS PRN PO MILD PAIN / TEMP > 100.3'F 07/03/21 18:45 07/09/21 05:36 Aspirin (Aspirin Enteric Coated) 81 mg DAILY PO 07/04/21 09:00 07/19/21 08:47 Bisacodyl (Dulcolax Tab) 5 mg PRN DAILY PRN PO 3RD CHOICE CONSTIPATION 07/03/21 18:45 Clonazepam (KlonoPIN) 0.5 mg TID PO 07/03/21 21:00 07/19/21 20:24 Diclofenac Sodium (Voltaren) 1 swathi PRN Q6HRS PRN TP MUSCLE PAIN, 2ND CHOICE 07/03/21 18:45 Divalproex Sodium (Depakote Sprinkles) 250 mg BID PO 07/03/21 21:00 07/06/21 23:37 DC 07/06/21 20:18 Furosemide (Lasix) 40 mg DAILY PO 07/04/21 09:00 07/19/21 08:49 Ibuprofen (Motrin) 400 mg PRN Q6HRS PRN PO INFLAMMATION / TEMP > 100.3'F 07/03/21 18:45 07/17/21 09:07 Albuterol/ Ipratropium (Combivent Respimat 20-100 Mcg) 1 puff PRN BID PRN INH SHORTNESS OF BREATH 07/03/21 19:15 Levothyroxine Sodium (Synthroid) 175 mcg DAILY06 PO 07/04/21 06:00 07/19/21 05:52 Al Hydroxide/Mg Hydroxide (Mylanta Plus Xs) 15 ml PRN AFTMEALHC PRN PO DYSPEPSIA 07/03/21 18:45 UNV Magnesium Oxide (Magnesium Oxide) 400 mg DAILY PO 07/04/21 09:00 07/19/21 08:48 Multi-Ingredient Ointment (Analgesic [place]) 1 swathi PRN QID PRN TP MUSCLE PAIN 07/03/21 18:45 UNV Mirtazapine (Remeron) 15 mg QHS PO 07/03/21 21:00 07/19/21 20:24 Risperidone (RisperDAL CONSTA) 25 mg Q2WKS IM 07/05/21 09:00 07/19/21 13:02 Spironolactone (Aldactone) 25 mg DAILY PO 07/04/21 09:00 07/19/21 08:49 Trazodone HCl (Desyrel) 25 mg DAILY PO 07/04/21 09:00 07/19/21 08:49 Trazodone HCl (Desyrel) 50 mg BID@1300,1700 PO 07/04/21 13:00 07/19/21 17:36 Betamethasone Dipropion Augmented (Betamethasone Dp Aug 0.05% Cream) 1 swathi PRN BID PRN TP RASH 07/03/21 19:15 Non-Formulary Medication (Eucalyptus Oil/ Menthol/Camphor (Vicks Vaporub Ointment)) 50 gm QHS TP 07/03/21 21:00 UNV Guaifenesin (Robitussin Dm) 10 ml PRN Q4HRS PRN PO COUGH 07/03/21 19:15 Insulin Human Lispro (HumaLOG) 28 units TIDWMEALS SQ 07/04/21 08:00 07/19/21 17:38 Insulin Glargine (Lantus Syringe) 40 unit BID SQ 07/03/21 21:00 07/19/21 20:26 Non-Formulary Medication (Magnesium Hydroxide (Milk Of Magnesia)) 2,400 mg PRN QHS PRN PO CONSTIPATION 07/03/21 18:45 UNV Pantoprazole Sodium (Protonix) 40 mg DAILY PO 07/04/21 09:00 07/19/21 08:48 Oxybutynin Chloride (Ditropan) 5 mg DAILY PO 07/04/21 09:00 07/19/21 17:56 DC 07/19/21 08:47 Polyethylene Glycol (miraLAX) 17 gm PRN Q72HRS PRN PO 1ST CHOICE CONSTIPATION 07/03/21 19:15 Potassium Chloride (Klor-Con) 10 meq DAILY PO 07/04/21 09:00 07/04/21 08:42 DC Propranolol HCl (Inderal) 40 mg DAILY PO 07/04/21 09:00 07/19/21 08:47 Vitamin D (Vitamin D3) 2,000 unit DAILY PO 07/04/21 09:00 07/19/21 08:48 Potassium Chloride (Klor-Con) 20 meq BID PO 07/05/21 09:00 07/19/21 20:24 Potassium Chloride (Klor-Con) 40 meq 1X ONCE PO 07/04/21 08:45 07/04/21 08:46 DC 07/04/21 08:59 Potassium Chloride (Klor-Con) 40 meq 1X ONCE PO 07/04/21 09:45 07/04/21 09:46 DC 07/04/21 10:02 Potassium Chloride (Klor-Con) 40 meq 1X ONCE PO 07/04/21 10:45 07/04/21 10:46 DC 07/04/21 10:45 Divalproex Sodium (Depakote Sprinkles) 500 mg BID PO 07/07/21 09:00 07/10/21 16:07 DC 07/10/21 08:09 Divalproex Sodium (Depakote Sprinkles) 750 mg BID PO 07/10/21 21:00 07/19/21 20:25 Risperidone (RisperDAL) 1 mg DAILY PO 07/18/21 12:00 07/19/21 08:49 Oxybutynin Chloride (Ditropan) 5 mg BID PO 07/19/21 18:00 07/19/21 18:01 DC Cefdinir (Omnicef) 300 mg BID PO 07/19/21 21:00 07/26/21 22:00 07/19/21 20:24 Lactobacillus Rhamnosus (Culturelle) 1 cap BID PO 07/19/21 21:00 07/26/21 22:00 07/19/21 20:24 Oxybutynin Chloride (Ditropan) 5 mg BID PO 07/19/21 21:00 07/19/21 20:24 Current Medications Medications (Trade) Dose Ordered Sig/Leonides Route PRN Reason Start Time Stop Time Status Last Admin Dose Admin Cefdinir (Omnicef) 300 mg BID PO 07/19/21 21:00 07/26/21 22:00 07/19/21 20:24 Lactobacillus Rhamnosus (Culturelle) 1 cap BID PO 07/19/21 21:00 07/26/21 22:00 07/19/21 20:24 Oxybutynin Chloride (Ditropan) 5 mg BID PO 07/19/21 21:00 07/19/21 20:24 I have reviewed the current psychotropics carefully including drug interactions. Risk benefit ratio favors no change other than as noted in my dictated progress note. Diagnosis: Problems: (1) Schizoaffective disorder, bipolar type (2) Mild cognitive impairment (3) Anxiety disorder, unspecified (4) Impulse disorder, unspecified (5) Bipolar disorder, curr episode mixed, severe, with psychotic features RAJIV VELAZQUEZ MD Jul 19, 2021 21:54
--- NOTE | 2021-07-19 23:00 | NUR ---
Pt sitting quietly in the hallway at shift change. Pt calm, pleasant, and appropriate when approached this evening. Pt cooperative with assessment and compliant with medications administered whole. No agitation or disruptive behaviors observed thus far this shift.
[2021-07-20] MEDS: LEVOTHYROXINE 175 MCG TABLET PO SCH (05:18)
[2021-07-20 05:47] VITALS: BP 122/70
[2021-07-20] MEDS: ASPIRIN ENTERIC COATED 81 MG TABLET.DR. PO SCH (08:38)
[2021-07-20] MEDS: LACTOBACILLUS RHAMNOSUS GG 1 CAPSULE. PO SCH ×2 (08:39→19:44)
[2021-07-20] MEDS: CHOLECALCIFEROL (VITAMIN D3) 1,000 UNIT TABLET PO SCH (08:39)
[2021-07-20] MEDS: FUROSEMIDE 40 MG TABLET PO SCH (08:39)
[2021-07-20] MEDS: PROPRANOLOL 20 MG TABLET. PO SCH (08:39)
[2021-07-20] MEDS: risperiDONE 1 MG TABLET. PO SCH (08:40)
[2021-07-20] MEDS: OXYBUTYNIN CHLORIDE 5 MG TABLET PO SCH ×2 (08:40→19:44)
[2021-07-20] MEDS: PANTOPRAZOLE 40 MG TABLET. PO SCH (08:40)
[2021-07-20] MEDS: CEFDINIR 300 MG CAPSULE PO SCH ×2 (08:40→19:44)
[2021-07-20] MEDS: DIVALPROEX 125 MG CAP.SPRINK PO SCH ×2 (08:40→19:44)
[2021-07-20] MEDS: SPIRONOLACTONE 25 MG TABLET PO SCH (08:40)
[2021-07-20] MEDS: clonazePAM 0.5 MG TABLET PO SCH ×3 (08:41→19:44)
[2021-07-20] MEDS: POTASSIUM CHLORIDE 10 MEQ TABLET.ER. PO SCH ×2 (08:41→19:44)
[2021-07-20] MEDS: MAGNESIUM OXIDE 400 MG TABLET PO SCH (08:42)
[2021-07-20] MEDS: traZODone 50 MG TABLET. PO SCH ×3 (08:42→16:12)
[2021-07-20] MEDS: INSULIN LISPRO 300 UNITS/3 ML VIAL. SQ SCH ×3 (08:46→17:24)
[2021-07-20] MEDS: INSULIN GLARGINE SYRINGE. SQ SCH ×2 (08:55→21:00)
[2021-07-20 15:23] VITALS: BP 102/68
--- NOTE | 2021-07-20 18:05 | NUR ---
Patient has been flat, mildly confused, and withdrawn most of this shift. She took a nap after lunch, then was up in the day room about 15:30; patient was not interactive with peers. Will continue to monitor and report to oncoming shift.
[2021-07-20] MEDS: MIRTAZAPINE 15 MG TABLET PO SCH (19:44)
--- NOTE | 2021-07-20 21:38 | NUR ---
Pt withdrawn to room, lying in bed when approached. Pt calm with a flat affect. Pt cooperative with assessment and compliant with medications administered whole. No agitation or aggression noted thus far this shift.
--- NOTE | 2021-07-20 21:56 | PDOC ---
Exam Note: Donte Note: Please also refer to the separate dictated note~for this date of service dictated separately.~Patient seen individually. Discussed the patient with Nursing staff reviewed the chart.~Reviewed interim history and current functioning. Reviewed vital signs,~Labs/ Radiology~and current medications noted below. Continue current treatment with the changes noted in the dictated addendum note Assessment: Vital Signs/I&O: Vital Signs Date Time Temp Pulse Resp B/P (MAP) Pulse Ox O2 Delivery O2 Flow Rate FiO2 07/20/21 15:23 98.1 76 18 102/68 (79) 96 Room Air I & O 07/19/21 07/19/21 07/20/21 15:00 23:00 07:00 Intake Total 610 ml 680 ml Balance 610 ml 680 ml Labs: Laboratory Tests Test 07/20/21 07:37 07/20/21 12:38 07/20/21 19:39 Glucose (Fingerstick) 139 mg/dL (70-99) H 295 mg/dL (70-99) H 170 mg/dL (70-99) H Current Medications: Meds: Laboratory Tests Test 07/20/21 07:37 07/20/21 12:38 07/20/21 19:39 Glucose (Fingerstick) 139 mg/dL 295 mg/dL 170 mg/dL Current Medications Medications (Trade) Dose Ordered Sig/Leonides Route PRN Reason Start Time Stop Time Status Last Admin Dose Admin Acetaminophen (Tylenol) 650 mg PRN Q6HRS PRN PO MILD PAIN / TEMP > 100.3'F 07/03/21 16:30 Cancel Multi-Ingredient Ointment (Analgesic [place]) 1 swathi PRN QID PRN TP MUSCLE PAIN, 1ST CHOICE 07/03/21 16:30 Al Hydroxide/Mg Hydroxide (Mylanta Plus Xs) 15 ml PRN AFTMEALHC PRN PO DYSPEPSIA 07/03/21 16:30 Magnesium Hydroxide (Milk Of Magnesia) 2,400 mg PRN QHS PRN PO 2ND CHOICE CONSTIPATION 07/03/21 16:30 Acetaminophen (Tylenol) 650 mg PRN Q4HRS PRN PO MILD PAIN / TEMP > 100.3'F 07/03/21 18:45 07/09/21 05:36 Aspirin (Aspirin Enteric Coated) 81 mg DAILY PO 07/04/21 09:00 07/20/21 08:38 Bisacodyl (Dulcolax Tab) 5 mg PRN DAILY PRN PO 3RD CHOICE CONSTIPATION 07/03/21 18:45 Clonazepam (KlonoPIN) 0.5 mg TID PO 07/03/21 21:00 07/20/21 19:44 Diclofenac Sodium (Voltaren) 1 swathi PRN Q6HRS PRN TP MUSCLE PAIN, 2ND CHOICE 07/03/21 18:45 Divalproex Sodium (Depakote Sprinkles) 250 mg BID PO 07/03/21 21:00 07/06/21 23:37 DC 07/06/21 20:18 Furosemide (Lasix) 40 mg DAILY PO 07/04/21 09:00 07/20/21 08:39 Ibuprofen (Motrin) 400 mg PRN Q6HRS PRN PO INFLAMMATION / TEMP > 100.3'F 07/03/21 18:45 07/17/21 09:07 Albuterol/ Ipratropium (Combivent Respimat 20-100 Mcg) 1 puff PRN BID PRN INH SHORTNESS OF BREATH 07/03/21 19:15 Levothyroxine Sodium (Synthroid) 175 mcg DAILY06 PO 07/04/21 06:00 07/20/21 05:18 Al Hydroxide/Mg Hydroxide (Mylanta Plus Xs) 15 ml PRN AFTMEALHC PRN PO DYSPEPSIA 07/03/21 18:45 UNV Magnesium Oxide (Magnesium Oxide) 400 mg DAILY PO 07/04/21 09:00 07/20/21 08:42 Multi-Ingredient Ointment (Analgesic [place]) 1 swathi PRN QID PRN TP MUSCLE PAIN 07/03/21 18:45 UNV Mirtazapine (Remeron) 15 mg QHS PO 07/03/21 21:00 07/20/21 19:44 Risperidone (RisperDAL CONSTA) 25 mg Q2WKS IM 07/05/21 09:00 07/19/21 13:02 Spironolactone (Aldactone) 25 mg DAILY PO 07/04/21 09:00 07/20/21 08:40 Trazodone HCl (Desyrel) 25 mg DAILY PO 07/04/21 09:00 07/20/21 08:42 Trazodone HCl (Desyrel) 50 mg BID@1300,1700 PO 07/04/21 13:00 07/20/21 16:12 Betamethasone Dipropion Augmented (Betamethasone Dp Aug 0.05% Cream) 1 swathi PRN BID PRN TP RASH 07/03/21 19:15 Non-Formulary Medication (Eucalyptus Oil/ Menthol/Camphor (Vicks Vaporub Ointment)) 50 gm QHS TP 07/03/21 21:00 UNV Guaifenesin (Robitussin Dm) 10 ml PRN Q4HRS PRN PO COUGH 07/03/21 19:15 Insulin Human Lispro (HumaLOG) 28 units TIDWMEALS SQ 07/04/21 08:00 07/20/21 17:24 Insulin Glargine (Lantus Syringe) 40 unit BID SQ 07/03/21 21:00 07/20/21 21:00 Non-Formulary Medication (Magnesium Hydroxide (Milk Of Magnesia)) 2,400 mg PRN QHS PRN PO CONSTIPATION 07/03/21 18:45 UNV Pantoprazole Sodium (Protonix) 40 mg DAILY PO 07/04/21 09:00 07/20/21 08:40 Oxybutynin Chloride (Ditropan) 5 mg DAILY PO 07/04/21 09:00 07/19/21 17:56 DC 07/19/21 08:47 Polyethylene Glycol (miraLAX) 17 gm PRN Q72HRS PRN PO 1ST CHOICE CONSTIPATION 07/03/21 19:15 Potassium Chloride (Klor-Con) 10 meq DAILY PO 07/04/21 09:00 07/04/21 08:42 DC Propranolol HCl (Inderal) 40 mg DAILY PO 07/04/21 09:00 07/20/21 08:39 Vitamin D (Vitamin D3) 2,000 unit DAILY PO 07/04/21 09:00 07/20/21 08:39 Potassium Chloride (Klor-Con) 20 meq BID PO 07/05/21 09:00 07/20/21 19:44 Potassium Chloride (Klor-Con) 40 meq 1X ONCE PO 07/04/21 08:45 07/04/21 08:46 DC 07/04/21 08:59 Potassium Chloride (Klor-Con) 40 meq 1X ONCE PO 07/04/21 09:45 07/04/21 09:46 DC 07/04/21 10:02 Potassium Chloride (Klor-Con) 40 meq 1X ONCE PO 07/04/21 10:45 07/04/21 10:46 DC 07/04/21 10:45 Divalproex Sodium (Depakote Sprinkles) 500 mg BID PO 07/07/21 09:00 07/10/21 16:07 DC 07/10/21 08:09 Divalproex Sodium (Depakote Sprinkles) 750 mg BID PO 07/10/21 21:00 07/20/21 19:44 Risperidone (RisperDAL) 1 mg DAILY PO 07/18/21 12:00 07/20/21 08:40 Oxybutynin Chloride (Ditropan) 5 mg BID PO 07/19/21 18:00 07/19/21 18:01 DC Cefdinir (Omnicef) 300 mg BID PO 07/19/21 21:00 07/26/21 22:00 07/20/21 19:44 Lactobacillus Rhamnosus (Culturelle) 1 cap BID PO 07/19/21 21:00 07/26/21 22:00 07/20/21 19:44 Oxybutynin Chloride (Ditropan) 5 mg BID PO 07/19/21 21:00 07/20/21 19:44 I have reviewed the current psychotropics carefully including drug interactions. Risk benefit ratio favors no change other than as noted in my dictated progress note. Diagnosis: Problems: (1) Schizoaffective disorder, bipolar type (2) Mild cognitive impairment (3) Anxiety disorder, unspecified (4) Impulse disorder, unspecified (5) Bipolar disorder, curr episode mixed, severe, with psychotic features RAJIV VELAZQUEZ MD Jul 20, 2021 21:56
[2021-07-21] MEDS: LEVOTHYROXINE 175 MCG TABLET PO SCH (05:21)
[2021-07-21 06:13] VITALS: BP 149/73
[2021-07-21] MEDS: SPIRONOLACTONE 25 MG TABLET PO SCH (08:15)
[2021-07-21] MEDS: CHOLECALCIFEROL (VITAMIN D3) 1,000 UNIT TABLET PO SCH (08:15)
[2021-07-21] MEDS: ASPIRIN ENTERIC COATED 81 MG TABLET.DR. PO SCH (08:15)
[2021-07-21] MEDS: OXYBUTYNIN CHLORIDE 5 MG TABLET PO SCH ×2 (08:16→19:53)
[2021-07-21] MEDS: clonazePAM 0.5 MG TABLET PO SCH ×3 (08:16→19:53)
[2021-07-21] MEDS: LACTOBACILLUS RHAMNOSUS GG 1 CAPSULE. PO SCH ×2 (08:16→19:53)
[2021-07-21] MEDS: CEFDINIR 300 MG CAPSULE PO SCH ×2 (08:16→19:52)
[2021-07-21] MEDS: POTASSIUM CHLORIDE 10 MEQ TABLET.ER. PO SCH ×2 (08:16→19:53)
[2021-07-21] MEDS: FUROSEMIDE 40 MG TABLET PO SCH (08:16)
[2021-07-21] MEDS: PANTOPRAZOLE 40 MG TABLET. PO SCH (08:16)
[2021-07-21] MEDS: PROPRANOLOL 20 MG TABLET. PO SCH (08:17)
[2021-07-21] MEDS: traZODone 50 MG TABLET. PO SCH ×3 (08:17→17:16)
[2021-07-21] MEDS: risperiDONE 1 MG TABLET. PO SCH (08:18)
[2021-07-21] MEDS: DIVALPROEX 125 MG CAP.SPRINK PO SCH ×2 (08:18→19:53)
[2021-07-21] MEDS: MAGNESIUM OXIDE 400 MG TABLET PO SCH (08:18)
[2021-07-21] MEDS: INSULIN LISPRO 300 UNITS/3 ML VIAL. SQ SCH ×3 (08:23→17:16)
[2021-07-21] MEDS: INSULIN GLARGINE SYRINGE. SQ SCH ×2 (10:24→22:42)
--- NOTE | 2021-07-21 14:45 | NUR ---
Nsg Note; Hien has been calm, cooperative and med compliant today. she took a nap after breakfast and is currently in the hallway sitting with two peers but no interacting with them. She will talk to staff briefly when engaged
[2021-07-21 16:18] VITALS: BP 120/78
[2021-07-21] MEDS: MIRTAZAPINE 15 MG TABLET PO SCH (19:53)
--- NOTE | 2021-07-21 22:03 | PDOC ---
Exam Note: Donte Note: Please also refer to the separate dictated note~for this date of service dictated separately.~Patient seen individually. Discussed the patient with Nursing staff reviewed the chart.~Reviewed interim history and current functioning. Reviewed vital signs,~Labs/ Radiology~and current medications noted below. Continue current treatment with the changes noted in the dictated addendum note Assessment: Vital Signs/I&O: Vital Signs Date Time Temp Pulse Resp B/P (MAP) Pulse Ox O2 Delivery O2 Flow Rate FiO2 07/21/21 16:18 97.6 77 18 120/78 (92) 94 07/20/21 15:23 Room Air I & O 07/20/21 07/20/21 07/21/21 15:00 23:00 07:00 Intake Total 720 ml 480 ml Balance 720 ml 480 ml Labs: Laboratory Tests Test 07/21/21 07:42 07/21/21 11:49 07/21/21 16:45 07/21/21 19:07 Glucose (Fingerstick) 120 mg/dL (70-99) H 190 mg/dL (70-99) H 271 mg/dL (70-99) H 327 mg/dL (70-99) H Current Medications: Meds: Laboratory Tests Test 07/21/21 07:42 07/21/21 11:49 07/21/21 16:45 07/21/21 19:07 Glucose (Fingerstick) 120 mg/dL 190 mg/dL 271 mg/dL 327 mg/dL Current Medications Medications (Trade) Dose Ordered Sig/Leonides Route PRN Reason Start Time Stop Time Status Last Admin Dose Admin Acetaminophen (Tylenol) 650 mg PRN Q6HRS PRN PO MILD PAIN / TEMP > 100.3'F 07/03/21 16:30 Cancel Multi-Ingredient Ointment (Analgesic [place]) 1 swathi PRN QID PRN TP MUSCLE PAIN, 1ST CHOICE 07/03/21 16:30 Al Hydroxide/Mg Hydroxide (Mylanta Plus Xs) 15 ml PRN AFTMEALHC PRN PO DYSPEPSIA 07/03/21 16:30 Magnesium Hydroxide (Milk Of Magnesia) 2,400 mg PRN QHS PRN PO 2ND CHOICE CONSTIPATION 07/03/21 16:30 Acetaminophen (Tylenol) 650 mg PRN Q4HRS PRN PO MILD PAIN / TEMP > 100.3'F 07/03/21 18:45 07/09/21 05:36 Aspirin (Aspirin Enteric Coated) 81 mg DAILY PO 07/04/21 09:00 07/21/21 08:15 Bisacodyl (Dulcolax Tab) 5 mg PRN DAILY PRN PO 3RD CHOICE CONSTIPATION 07/03/21 18:45 Clonazepam (KlonoPIN) 0.5 mg TID PO 07/03/21 21:00 07/21/21 19:53 Diclofenac Sodium (Voltaren) 1 swathi PRN Q6HRS PRN TP MUSCLE PAIN, 2ND CHOICE 07/03/21 18:45 Divalproex Sodium (Depakote Sprinkles) 250 mg BID PO 07/03/21 21:00 07/06/21 23:37 DC 07/06/21 20:18 Furosemide (Lasix) 40 mg DAILY PO 07/04/21 09:00 07/21/21 08:16 Ibuprofen (Motrin) 400 mg PRN Q6HRS PRN PO INFLAMMATION / TEMP > 100.3'F 07/03/21 18:45 07/17/21 09:07 Albuterol/ Ipratropium (Combivent Respimat 20-100 Mcg) 1 puff PRN BID PRN INH SHORTNESS OF BREATH 07/03/21 19:15 Levothyroxine Sodium (Synthroid) 175 mcg DAILY06 PO 07/04/21 06:00 07/21/21 05:21 Al Hydroxide/Mg Hydroxide (Mylanta Plus Xs) 15 ml PRN AFTMEALHC PRN PO DYSPEPSIA 07/03/21 18:45 UNV Magnesium Oxide (Magnesium Oxide) 400 mg DAILY PO 07/04/21 09:00 07/21/21 08:18 Multi-Ingredient Ointment (Analgesic [place]) 1 swathi PRN QID PRN TP MUSCLE PAIN 07/03/21 18:45 UNV Mirtazapine (Remeron) 15 mg QHS PO 07/03/21 21:00 07/21/21 19:53 Risperidone (RisperDAL CONSTA) 25 mg Q2WKS IM 07/05/21 09:00 07/19/21 13:02 Spironolactone (Aldactone) 25 mg DAILY PO 07/04/21 09:00 07/21/21 08:15 Trazodone HCl (Desyrel) 25 mg DAILY PO 07/04/21 09:00 07/21/21 08:17 Trazodone HCl (Desyrel) 50 mg BID@1300,1700 PO 07/04/21 13:00 07/21/21 17:16 Betamethasone Dipropion Augmented (Betamethasone Dp Aug 0.05% Cream) 1 swathi PRN BID PRN TP RASH 07/03/21 19:15 Non-Formulary Medication (Eucalyptus Oil/ Menthol/Camphor (Vicks Vaporub Ointment)) 50 gm QHS TP 07/03/21 21:00 UNV Guaifenesin (Robitussin Dm) 10 ml PRN Q4HRS PRN PO COUGH 07/03/21 19:15 Insulin Human Lispro (HumaLOG) 28 units TIDWMEALS SQ 07/04/21 08:00 07/21/21 17:16 Insulin Glargine (Lantus Syringe) 40 unit BID SQ 07/03/21 21:00 07/21/21 10:24 Non-Formulary Medication (Magnesium Hydroxide (Milk Of Magnesia)) 2,400 mg PRN QHS PRN PO CONSTIPATION 07/03/21 18:45 UNV Pantoprazole Sodium (Protonix) 40 mg DAILY PO 07/04/21 09:00 07/21/21 08:16 Oxybutynin Chloride (Ditropan) 5 mg DAILY PO 07/04/21 09:00 07/19/21 17:56 DC 07/19/21 08:47 Polyethylene Glycol (miraLAX) 17 gm PRN Q72HRS PRN PO 1ST CHOICE CONSTIPATION 07/03/21 19:15 Potassium Chloride (Klor-Con) 10 meq DAILY PO 07/04/21 09:00 07/04/21 08:42 DC Propranolol HCl (Inderal) 40 mg DAILY PO 07/04/21 09:00 07/21/21 08:17 Vitamin D (Vitamin D3) 2,000 unit DAILY PO 07/04/21 09:00 07/21/21 08:15 Potassium Chloride (Klor-Con) 20 meq BID PO 07/05/21 09:00 07/21/21 19:53 Potassium Chloride (Klor-Con) 40 meq 1X ONCE PO 07/04/21 08:45 07/04/21 08:46 DC 07/04/21 08:59 Potassium Chloride (Klor-Con) 40 meq 1X ONCE PO 07/04/21 09:45 07/04/21 09:46 DC 07/04/21 10:02 Potassium Chloride (Klor-Con) 40 meq 1X ONCE PO 07/04/21 10:45 07/04/21 10:46 DC 07/04/21 10:45 Divalproex Sodium (Depakote Sprinkles) 500 mg BID PO 07/07/21 09:00 07/10/21 16:07 DC 07/10/21 08:09 Divalproex Sodium (Depakote Sprinkles) 750 mg BID PO 07/10/21 21:00 07/21/21 19:53 Risperidone (RisperDAL) 1 mg DAILY PO 07/18/21 12:00 07/21/21 08:18 Oxybutynin Chloride (Ditropan) 5 mg BID PO 07/19/21 18:00 07/19/21 18:01 DC Cefdinir (Omnicef) 300 mg BID PO 07/19/21 21:00 07/26/21 22:00 07/21/21 19:52 Lactobacillus Rhamnosus (Culturelle) 1 cap BID PO 07/19/21 21:00 07/26/21 22:00 07/21/21 19:53 Oxybutynin Chloride (Ditropan) 5 mg BID PO 07/19/21 21:00 07/21/21 19:53 I have reviewed the current psychotropics carefully including drug interactions. Risk benefit ratio favors no change other than as noted in my dictated progress note. Diagnosis: Problems: (1) Schizoaffective disorder, bipolar type (2) Mild cognitive impairment (3) Anxiety disorder, unspecified (4) Impulse disorder, unspecified (5) Bipolar disorder, curr episode mixed, severe, with psychotic features RAJIV VELAZQUEZ MD Jul 21, 2021 22:03
--- NOTE | 2021-07-22 03:35 | NUR ---
Nursing Note The patient was located in her room laying in bed for her assessment and medication pass. The patient was asleep when approached by this nurse and was irritable when woke by this nurse. The patient was alert to name and location. The patient took her medication whole. The patient is currently sleeping in her room.
[2021-07-22] MEDS: LEVOTHYROXINE 175 MCG TABLET PO SCH (05:58)
[2021-07-22 06:17] VITALS: BP 131/81
[2021-07-22] MEDS: MAGNESIUM OXIDE 400 MG TABLET PO SCH (09:00)
[2021-07-22] MEDS: CEFDINIR 300 MG CAPSULE PO SCH ×2 (09:00→20:14)
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
--- NOTE | 2021-07-22 09:24 | PDOC ---
Exam Note: Donte Note: This note is a late entry for 07/19/2021 covers elements not covered in my initial note. Subjective: The patient was seen individually in the evening of 07/19/2021 with Marissa COPELAND, discussed and reviewed the chart. The patient slept 9 hours previous night. She has been flat, withdrawn, and cooperative. She does have UTI. She was started on antibiotics per Dr. Daniels. She is also on Oxybutynin for her bladder spasms that she was complaining. At times she gets paranoid, suspicious. Review of Systems: Ambulation impaired. No CV, pulmonary, eye, ENT system symp toms on review. Positive for bladder spasms, frequency of urination, dysuria. Mental Status Exam: The patient is awake, alert, oriented. I met with her in her room. Speech coherent has some latency. Abstraction fair. Computation impaired. Language function intact. Mood and affect withdrawn, somewhat paranoid. No suicidal or homicidal ideation. Laboratory Data: Reviewed. Impression: Schizoaffective disorder bipolar type mixed with psychotic features. Anxiety disorder unspecified. Impulse control disorder unspecified. Plan: No change from initial note. Assessment: Vital Signs/I&O: Vital Signs Date Time Temp Pulse Resp B/P (MAP) Pulse Ox O2 Delivery O2 Flow Rate FiO2 07/22/21 06:17 97.7 83 16 131/81 (98) 93 07/20/21 15:23 Room Air I & O 07/21/21 07/21/21 07/22/21 15:00 23:00 07:00 Intake Total 840 ml 360 ml Balance 840 ml 360 ml Labs: Laboratory Tests Test 07/21/21 11:49 07/21/21 16:45 07/21/21 19:07 07/22/21 08:11 Glucose (Fingerstick) 190 mg/dL (70-99) H 271 mg/dL (70-99) H 327 mg/dL (70-99) H 269 mg/dL (70-99) H Current Medications: Meds: Laboratory Tests Test 07/21/21 11:49 07/21/21 16:45 07/21/21 19:07 07/22/21 08:11 Glucose (Fingerstick) 190 mg/dL 271 mg/dL 327 mg/dL 269 mg/dL Current Medications Medications (Trade) Dose Ordered Sig/Leonides Route PRN Reason Start Time Stop Time Status Last Admin Dose Admin Acetaminophen (Tylenol) 650 mg PRN Q6HRS PRN PO MILD PAIN / TEMP > 100.3'F 07/03/21 16:30 Cancel Multi-Ingredient Ointment (Analgesic [place]) 1 swathi PRN QID PRN TP MUSCLE PAIN, 1ST CHOICE 07/03/21 16:30 Al Hydroxide/Mg Hydroxide (Mylanta Plus Xs) 15 ml PRN AFTMEALHC PRN PO DYSPEPSIA 07/03/21 16:30 Magnesium Hydroxide (Milk Of Magnesia) 2,400 mg PRN QHS PRN PO 2ND CHOICE CONSTIPATION 07/03/21 16:30 Acetaminophen (Tylenol) 650 mg PRN Q4HRS PRN PO MILD PAIN / TEMP > 100.3'F 07/03/21 18:45 07/09/21 05:36 Aspirin (Aspirin Enteric Coated) 81 mg DAILY PO 07/04/21 09:00 07/21/21 08:15 Bisacodyl (Dulcolax Tab) 5 mg PRN DAILY PRN PO 3RD CHOICE CONSTIPATION 07/03/21 18:45 Clonazepam (KlonoPIN) 0.5 mg TID PO 07/03/21 21:00 07/21/21 19:53 Diclofenac Sodium (Voltaren) 1 swathi PRN Q6HRS PRN TP MUSCLE PAIN, 2ND CHOICE 07/03/21 18:45 Divalproex Sodium (Depakote Sprinkles) 250 mg BID PO 07/03/21 21:00 07/06/21 23:37 DC 07/06/21 20:18 Furosemide (Lasix) 40 mg DAILY PO 07/04/21 09:00 07/21/21 08:16 Ibuprofen (Motrin) 400 mg PRN Q6HRS PRN PO INFLAMMATION / TEMP > 100.3'F 07/03/21 18:45 07/17/21 09:07 Albuterol/ Ipratropium (Combivent Respimat 20-100 Mcg) 1 puff PRN BID PRN INH SHORTNESS OF BREATH 07/03/21 19:15 Levothyroxine Sodium (Synthroid) 175 mcg DAILY06 PO 07/04/21 06:00 07/22/21 05:58 Al Hydroxide/Mg Hydroxide (Mylanta Plus Xs) 15 ml PRN AFTMEALHC PRN PO DYSPEPSIA 07/03/21 18:45 UNV Magnesium Oxide (Magnesium Oxide) 400 mg DAILY PO 07/04/21 09:00 07/21/21 08:18 Multi-Ingredient Ointment (Analgesic [place]) 1 swathi PRN QID PRN TP MUSCLE PAIN 07/03/21 18:45 UNV Mirtazapine (Remeron) 15 mg QHS PO 07/03/21 21:00 07/21/21 19:53 Risperidone (RisperDAL CONSTA) 25 mg Q2WKS IM 07/05/21 09:00 07/19/21 13:02 Spironolactone (Aldactone) 25 mg DAILY PO 07/04/21 09:00 07/21/21 08:15 Trazodone HCl (Desyrel) 25 mg DAILY PO 07/04/21 09:00 07/21/21 08:17 Trazodone HCl (Desyrel) 50 mg BID@1300,1700 PO 07/04/21 13:00 07/21/21 17:16 Betamethasone Dipropion Augmented (Betamethasone Dp Aug 0.05% Cream) 1 swathi PRN BID PRN TP RASH 07/03/21 19:15 Non-Formulary Medication (Eucalyptus Oil/ Menthol/Camphor (Vicks Vaporub Ointment)) 50 gm QHS TP 07/03/21 21:00 UNV Guaifenesin (Robitussin Dm) 10 ml PRN Q4HRS PRN PO COUGH 07/03/21 19:15 Insulin Human Lispro (HumaLOG) 28 units TIDWMEALS SQ 07/04/21 08:00 07/21/21 17:16 Insulin Glargine (Lantus Syringe) 40 unit BID SQ 07/03/21 21:00 07/21/21 22:42 Non-Formulary Medication (Magnesium Hydroxide (Milk Of Magnesia)) 2,400 mg PRN QHS PRN PO CONSTIPATION 07/03/21 18:45 UNV Pantoprazole Sodium (Protonix) 40 mg DAILY PO 07/04/21 09:00 07/21/21 08:16 Oxybutynin Chloride (Ditropan) 5 mg DAILY PO 07/04/21 09:00 07/19/21 17:56 DC 07/19/21 08:47 Polyethylene Glycol (miraLAX) 17 gm PRN Q72HRS PRN PO 1ST CHOICE CONSTIPATION 07/03/21 19:15 Potassium Chloride (Klor-Con) 10 meq DAILY PO 07/04/21 09:00 07/04/21 08:42 DC Propranolol HCl (Inderal) 40 mg DAILY PO 07/04/21 09:00 07/21/21 08:17 Vitamin D (Vitamin D3) 2,000 unit DAILY PO 07/04/21 09:00 07/21/21 08:15 Potassium Chloride (Klor-Con) 20 meq BID PO 07/05/21 09:00 07/21/21 19:53 Potassium Chloride (Klor-Con) 40 meq 1X ONCE PO 07/04/21 08:45 07/04/21 08:46 DC 07/04/21 08:59 Potassium Chloride (Klor-Con) 40 meq 1X ONCE PO 07/04/21 09:45 07/04/21 09:46 DC 07/04/21 10:02 Potassium Chloride (Klor-Con) 40 meq 1X ONCE PO 07/04/21 10:45 07/04/21 10:46 DC 07/04/21 10:45 Divalproex Sodium (Depakote Sprinkles) 500 mg BID PO 07/07/21 09:00 07/10/21 16:07 DC 07/10/21 08:09 Divalproex Sodium (Depakote Sprinkles) 750 mg BID PO 07/10/21 21:00 07/21/21 19:53 Risperidone (RisperDAL) 1 mg DAILY PO 07/18/21 12:00 07/21/21 08:18 Oxybutynin Chloride (Ditropan) 5 mg BID PO 07/19/21 18:00 07/19/21 18:01 DC Cefdinir (Omnicef) 300 mg BID PO 07/19/21 21:00 07/26/21 22:00 07/21/21 19:52 Lactobacillus Rhamnosus (Culturelle) 1 cap BID PO 07/19/21 21:00 07/26/21 22:00 07/21/21 19:53 Oxybutynin Chloride (Ditropan) 5 mg BID PO 07/19/21 21:00 07/21/21 19:53 I have reviewed the current psychotropics carefully including drug interactions. Risk benefit ratio favors no change other than as noted in my dictated progress note. Diagnosis: Problems: (1) Schizoaffective disorder, bipolar type (2) Mild cognitive impairment (3) Anxiety disorder, unspecified (4) Impulse disorder, unspecified (5) Bipolar disorder, curr episode mixed, severe, with psychotic features RAJIV VELAZQUEZ MD Jul 22, 2021 09:24
[2021-07-22] MEDS: INSULIN GLARGINE SYRINGE. SQ SCH ×2 (09:35→22:34)
[2021-07-22] MEDS: INSULIN LISPRO 300 UNITS/3 ML VIAL. SQ SCH ×3 (09:36→17:01)
[2021-07-22] MEDS: PROPRANOLOL 20 MG TABLET. PO SCH (09:37)
[2021-07-22] MEDS: DIVALPROEX 125 MG CAP.SPRINK PO SCH ×2 (09:37→20:15)
[2021-07-22] MEDS: LACTOBACILLUS RHAMNOSUS GG 1 CAPSULE. PO SCH ×2 (09:38→20:15)
[2021-07-22] MEDS: risperiDONE 1 MG TABLET. PO SCH (09:38)
[2021-07-22] MEDS: traZODone 50 MG TABLET. PO SCH ×3 (09:38→17:00)
[2021-07-22] MEDS: POTASSIUM CHLORIDE 10 MEQ TABLET.ER. PO SCH ×2 (09:38→20:15)
[2021-07-22] MEDS: clonazePAM 0.5 MG TABLET PO SCH ×3 (09:38→20:15)
[2021-07-22] MEDS: PANTOPRAZOLE 40 MG TABLET. PO SCH (09:38)
[2021-07-22] MEDS: ASPIRIN ENTERIC COATED 81 MG TABLET.DR. PO SCH (09:38)
[2021-07-22] MEDS: CHOLECALCIFEROL (VITAMIN D3) 1,000 UNIT TABLET PO SCH (09:38)
[2021-07-22] MEDS: FUROSEMIDE 40 MG TABLET PO SCH (09:39)
[2021-07-22] MEDS: OXYBUTYNIN CHLORIDE 5 MG TABLET PO SCH ×2 (09:39→20:15)
[2021-07-22] MEDS: SPIRONOLACTONE 25 MG TABLET PO SCH (09:39)
--- NOTE | 2021-07-22 11:24 | PDOC ---
Exam Note: Donte Note: This note is a late entry for 07/20/2021 covers elements not covered in my initial note. Subjective: The patient was seen individually in the evening of 07/20/2021 with Marissa COPELAND, discussed and reviewed the chart. The patient slept 8-1/4 hours previous night. She generally has been doing alright but at one point she became paranoid and was swatting at the nursing aid. Rest of the time she has not been aggressive or glaring at staff. Review of Systems: Ambulation impaired. No CV, pulmonary, eye, ENT system symptoms on review. Positive for bladder spasms, frequency of urination, dysuria. Mental Status Exam: The patient is oriented. During the individual visit, we addressed the above incident but the patient was not forthcoming about the reason for this. Speech coherent has some latency. Abstraction fair. Computation impaired. Language function intact. Mood and affect still gets a little paranoid at times, fairly attentive but withdrawn. No suicidal or homicidal ideation. Laboratory Data: Reviewed. Impression: Schizoaffective disorder bipolar type mixed with psychotic features. Anxiety disorder unspecified. Impulse control disorder unspecified. Plan: No change from initial note. Assessment: Vital Signs/I&O: Vital Signs Date Time Temp Pulse Resp B/P (MAP) Pulse Ox O2 Delivery O2 Flow Rate FiO2 07/22/21 09:37 83 131/81 07/22/21 06:17 97.7 16 93 07/20/21 15:23 Room Air I & O 07/21/21 07/21/21 07/22/21 15:00 23:00 07:00 Intake Total 840 ml 360 ml Balance 840 ml 360 ml Labs: Laboratory Tests Test 07/21/21 11:49 07/21/21 16:45 07/21/21 19:07 07/22/21 08:11 Glucose (Fingerstick) 190 mg/dL (70-99) H 271 mg/dL (70-99) H 327 mg/dL (70-99) H 269 mg/dL (70-99) H Current Medications: Meds: Laboratory Tests Test 07/21/21 11:49 07/21/21 16:45 07/21/21 19:07 07/22/21 08:11 Glucose (Fingerstick) 190 mg/dL 271 mg/dL 327 mg/dL 269 mg/dL Current Medications Medications (Trade) Dose Ordered Sig/Leonides Route PRN Reason Start Time Stop Time Status Last Admin Dose Admin Acetaminophen (Tylenol) 650 mg PRN Q6HRS PRN PO MILD PAIN / TEMP > 100.3'F 07/03/21 16:30 Cancel Multi-Ingredient Ointment (Analgesic Slade) 1 swathi PRN QID PRN TP MUSCLE PAIN, 1ST CHOICE 07/03/21 16:30 Al Hydroxide/Mg Hydroxide (Mylanta Plus Xs) 15 ml PRN AFTMEALHC PRN PO DYSPEPSIA 07/03/21 16:30 Magnesium Hydroxide (Milk Of Magnesia) 2,400 mg PRN QHS PRN PO 2ND CHOICE CONSTIPATION 07/03/21 16:30 Acetaminophen (Tylenol) 650 mg PRN Q4HRS PRN PO MILD PAIN / TEMP > 100.3'F 07/03/21 18:45 07/09/21 05:36 Aspirin (Aspirin Enteric Coated) 81 mg DAILY PO 07/04/21 09:00 07/22/21 09:38 Bisacodyl (Dulcolax Tab) 5 mg PRN DAILY PRN PO 3RD CHOICE CONSTIPATION 07/03/21 18:45 Clonazepam (KlonoPIN) 0.5 mg TID PO 07/03/21 21:00 07/22/21 09:38 Diclofenac Sodium (Voltaren) 1 swathi PRN Q6HRS PRN TP MUSCLE PAIN, 2ND CHOICE 07/03/21 18:45 Divalproex Sodium (Depakote Sprinkles) 250 mg BID PO 07/03/21 21:00 07/06/21 23:37 DC 07/06/21 20:18 Furosemide (Lasix) 40 mg DAILY PO 07/04/21 09:00 07/22/21 09:39 Ibuprofen (Motrin) 400 mg PRN Q6HRS PRN PO INFLAMMATION / TEMP > 100.3'F 07/03/21 18:45 07/17/21 09:07 Albuterol/ Ipratropium (Combivent Respimat 20-100 Mcg) 1 puff PRN BID PRN INH SHORTNESS OF BREATH 07/03/21 19:15 Levothyroxine Sodium (Synthroid) 175 mcg DAILY06 PO 07/04/21 06:00 07/22/21 05:58 Al Hydroxide/Mg Hydroxide (Mylanta Plus Xs) 15 ml PRN AFTMEALHC PRN PO DYSPEPSIA 07/03/21 18:45 UNV Magnesium Oxide (Magnesium Oxide) 400 mg DAILY PO 07/04/21 09:00 07/22/21 09:00 Multi-Ingredient Ointment (Analgesic Slade) 1 swathi PRN QID PRN TP MUSCLE PAIN 07/03/21 18:45 UNV Mirtazapine (Remeron) 15 mg QHS PO 07/03/21 21:00 07/21/21 19:53 Risperidone (RisperDAL CONSTA) 25 mg Q2WKS IM 07/05/21 09:00 07/19/21 13:02 Spironolactone (Aldactone) 25 mg DAILY PO 07/04/21 09:00 07/22/21 09:39 Trazodone HCl (Desyrel) 25 mg DAILY PO 07/04/21 09:00 07/22/21 09:38 Trazodone HCl (Desyrel) 50 mg BID@1300,1700 PO 07/04/21 13:00 07/21/21 17:16 Betamethasone Dipropion Augmented (Betamethasone Dp Aug 0.05% Cream) 1 swathi PRN BID PRN TP RASH 07/03/21 19:15 Non-Formulary Medication (Eucalyptus Oil/ Menthol/Camphor (Vicks Vaporub Ointment)) 50 gm QHS TP 07/03/21 21:00 UNV Guaifenesin (Robitussin Dm) 10 ml PRN Q4HRS PRN PO COUGH 07/03/21 19:15 Insulin Human Lispro (HumaLOG) 28 units TIDWMEALS SQ 07/04/21 08:00 07/22/21 09:36 Insulin Glargine (Lantus Syringe) 40 unit BID SQ 07/03/21 21:00 07/22/21 09:35 Non-Formulary Medication (Magnesium Hydroxide (Milk Of Magnesia)) 2,400 mg PRN QHS PRN PO CONSTIPATION 07/03/21 18:45 UNV Pantoprazole Sodium (Protonix) 40 mg DAILY PO 07/04/21 09:00 07/22/21 09:38 Oxybutynin Chloride (Ditropan) 5 mg DAILY PO 07/04/21 09:00 07/19/21 17:56 DC 07/19/21 08:47 Polyethylene Glycol (miraLAX) 17 gm PRN Q72HRS PRN PO 1ST CHOICE CONSTIPATION 07/03/21 19:15 Potassium Chloride (Klor-Con) 10 meq DAILY PO 07/04/21 09:00 07/04/21 08:42 DC Propranolol HCl (Inderal) 40 mg DAILY PO 07/04/21 09:00 07/22/21 09:37 Vitamin D (Vitamin D3) 2,000 unit DAILY PO 07/04/21 09:00 07/22/21 09:38 Potassium Chloride (Klor-Con) 20 meq BID PO 07/05/21 09:00 07/22/21 09:38 Potassium Chloride (Klor-Con) 40 meq 1X ONCE PO 07/04/21 08:45 07/04/21 08:46 DC 07/04/21 08:59 Potassium Chloride (Klor-Con) 40 meq 1X ONCE PO 07/04/21 09:45 07/04/21 09:46 DC 07/04/21 10:02 Potassium Chloride (Klor-Con) 40 meq 1X ONCE PO 07/04/21 10:45 07/04/21 10:46 DC 07/04/21 10:45 Divalproex Sodium (Depakote Sprinkles) 500 mg BID PO 07/07/21 09:00 07/10/21 16:07 DC 07/10/21 08:09 Divalproex Sodium (Depakote Sprinkles) 750 mg BID PO 07/10/21 21:00 07/22/21 09:37 Risperidone (RisperDAL) 1 mg DAILY PO 07/18/21 12:00 07/22/21 09:38 Oxybutynin Chloride (Ditropan) 5 mg BID PO 07/19/21 18:00 07/19/21 18:01 DC Cefdinir (Omnicef) 300 mg BID PO 07/19/21 21:00 07/26/21 22:00 07/22/21 09:00 Lactobacillus Rhamnosus (Culturelle) 1 cap BID PO 07/19/21 21:00 07/26/21 22:00 07/22/21 09:38 Oxybutynin Chloride (Ditropan) 5 mg BID PO 07/19/21 21:00 07/22/21 09:39 I have reviewed the current psychotropics carefully including drug interactions. Risk benefit ratio favors no change other than as noted in my dictated progress note. Diagnosis: Problems: (1) Schizoaffective disorder, bipolar type (2) Mild cognitive impairment (3) Anxiety disorder, unspecified (4) Impulse disorder, unspecified (5) Bipolar disorder, curr episode mixed, severe, with psychotic features RAJIV VELAZQUEZ MD Jul 22, 2021 11:24
--- NOTE | 2021-07-22 11:41 | PDOC ---
Exam Note: Donte Note: This note is a late entry for 07/21/2021 covers elements not covered in my initial note. Subjective: The patient was seen individually in the evening of 07/21/2021 with Amol COPELAND, discussed and reviewed the chart. The patient slept 7-3/4 hours previous night. She has been irritable at time, compliant with medications. Review of Systems: Ambulation impaired. No CV, pulmonary, eye, ENT system symptoms on review. She complains of some dysuria at times. Mental Status Exam: The patient is oriented reasonably. Speech coherent has some latency. Often response is monosyllabic. Abstraction fair. Computation impaired. Language function intact. Mood and affect withdrawn. Laboratory Data: Reviewed. Impression: Schizoaffective disorder bipolar type mixed with psychotic features. Anxiety disorder unspecified. Impulse control disorder unspecified. Plan: No change from initial note. Assessment: Vital Signs/I&O: Vital Signs Date Time Temp Pulse Resp B/P (MAP) Pulse Ox O2 Delivery O2 Flow Rate FiO2 07/22/21 09:37 83 131/81 07/22/21 06:17 97.7 16 93 07/20/21 15:23 Room Air I & O 07/21/21 07/21/21 07/22/21 15:00 23:00 07:00 Intake Total 840 ml 360 ml Balance 840 ml 360 ml Labs: Laboratory Tests Test 07/21/21 11:49 07/21/21 16:45 07/21/21 19:07 07/22/21 08:11 Glucose (Fingerstick) 190 mg/dL (70-99) H 271 mg/dL (70-99) H 327 mg/dL (70-99) H 269 mg/dL (70-99) H Test 07/22/21 11:37 Glucose (Fingerstick) 265 mg/dL (70-99) H Current Medications: Meds: Laboratory Tests Test 07/21/21 11:49 07/21/21 16:45 07/21/21 19:07 07/22/21 08:11 Glucose (Fingerstick) 190 mg/dL 271 mg/dL 327 mg/dL 269 mg/dL Test 07/22/21 11:37 Glucose (Fingerstick) 265 mg/dL Current Medications Medications (Trade) Dose Ordered Sig/Leonides Route PRN Reason Start Time Stop Time Status Last Admin Dose Admin Acetaminophen (Tylenol) 650 mg PRN Q6HRS PRN PO MILD PAIN / TEMP > 100.3'F 07/03/21 16:30 Cancel Multi-Ingredient Ointment (Analgesic Magee) 1 sawthi PRN QID PRN TP MUSCLE PAIN, 1ST CHOICE 07/03/21 16:30 Al Hydroxide/Mg Hydroxide (Mylanta Plus Xs) 15 ml PRN AFTMEALHC PRN PO DYSPEPSIA 07/03/21 16:30 Magnesium Hydroxide (Milk Of Magnesia) 2,400 mg PRN QHS PRN PO 2ND CHOICE CONSTIPATION 07/03/21 16:30 Acetaminophen (Tylenol) 650 mg PRN Q4HRS PRN PO MILD PAIN / TEMP > 100.3'F 07/03/21 18:45 07/09/21 05:36 Aspirin (Aspirin Enteric Coated) 81 mg DAILY PO 07/04/21 09:00 07/22/21 09:38 Bisacodyl (Dulcolax Tab) 5 mg PRN DAILY PRN PO 3RD CHOICE CONSTIPATION 07/03/21 18:45 Clonazepam (KlonoPIN) 0.5 mg TID PO 07/03/21 21:00 07/22/21 09:38 Diclofenac Sodium (Voltaren) 1 swathi PRN Q6HRS PRN TP MUSCLE PAIN, 2ND CHOICE 07/03/21 18:45 Divalproex Sodium (Depakote Sprinkles) 250 mg BID PO 07/03/21 21:00 07/06/21 23:37 DC 07/06/21 20:18 Furosemide (Lasix) 40 mg DAILY PO 07/04/21 09:00 07/22/21 09:39 Ibuprofen (Motrin) 400 mg PRN Q6HRS PRN PO INFLAMMATION / TEMP > 100.3'F 07/03/21 18:45 07/17/21 09:07 Albuterol/ Ipratropium (Combivent Respimat 20-100 Mcg) 1 puff PRN BID PRN INH SHORTNESS OF BREATH 07/03/21 19:15 Levothyroxine Sodium (Synthroid) 175 mcg DAILY06 PO 07/04/21 06:00 07/22/21 05:58 Al Hydroxide/Mg Hydroxide (Mylanta Plus Xs) 15 ml PRN AFTMEALHC PRN PO DYSPEPSIA 07/03/21 18:45 UNV Magnesium Oxide (Magnesium Oxide) 400 mg DAILY PO 07/04/21 09:00 07/22/21 09:00 Multi-Ingredient Ointment (Analgesic Magee) 1 swathi PRN QID PRN TP MUSCLE PAIN 07/03/21 18:45 UNV Mirtazapine (Remeron) 15 mg QHS PO 07/03/21 21:00 07/21/21 19:53 Risperidone (RisperDAL CONSTA) 25 mg Q2WKS IM 07/05/21 09:00 07/19/21 13:02 Spironolactone (Aldactone) 25 mg DAILY PO 07/04/21 09:00 07/22/21 09:39 Trazodone HCl (Desyrel) 25 mg DAILY PO 07/04/21 09:00 07/22/21 09:38 Trazodone HCl (Desyrel) 50 mg BID@1300,1700 PO 07/04/21 13:00 07/21/21 17:16 Betamethasone Dipropion Augmented (Betamethasone Dp Aug 0.05% Cream) 1 swathi PRN BID PRN TP RASH 07/03/21 19:15 Non-Formulary Medication (Eucalyptus Oil/ Menthol/Camphor (Vicks Vaporub Ointment)) 50 gm QHS TP 07/03/21 21:00 UNV Guaifenesin (Robitussin Dm) 10 ml PRN Q4HRS PRN PO COUGH 07/03/21 19:15 Insulin Human Lispro (HumaLOG) 28 units TIDWMEALS SQ 07/04/21 08:00 07/22/21 09:36 Insulin Glargine (Lantus Syringe) 40 unit BID SQ 07/03/21 21:00 07/22/21 09:35 Non-Formulary Medication (Magnesium Hydroxide (Milk Of Magnesia)) 2,400 mg PRN QHS PRN PO CONSTIPATION 07/03/21 18:45 UNV Pantoprazole Sodium (Protonix) 40 mg DAILY PO 07/04/21 09:00 07/22/21 09:38 Oxybutynin Chloride (Ditropan) 5 mg DAILY PO 07/04/21 09:00 07/19/21 17:56 DC 07/19/21 08:47 Polyethylene Glycol (miraLAX) 17 gm PRN Q72HRS PRN PO 1ST CHOICE CONSTIPATION 07/03/21 19:15 Potassium Chloride (Klor-Con) 10 meq DAILY PO 07/04/21 09:00 07/04/21 08:42 DC Propranolol HCl (Inderal) 40 mg DAILY PO 07/04/21 09:00 07/22/21 09:37 Vitamin D (Vitamin D3) 2,000 unit DAILY PO 07/04/21 09:00 07/22/21 09:38 Potassium Chloride (Klor-Con) 20 meq BID PO 07/05/21 09:00 07/22/21 09:38 Potassium Chloride (Klor-Con) 40 meq 1X ONCE PO 07/04/21 08:45 07/04/21 08:46 DC 07/04/21 08:59 Potassium Chloride (Klor-Con) 40 meq 1X ONCE PO 07/04/21 09:45 07/04/21 09:46 DC 07/04/21 10:02 Potassium Chloride (Klor-Con) 40 meq 1X ONCE PO 07/04/21 10:45 07/04/21 10:46 DC 07/04/21 10:45 Divalproex Sodium (Depakote Sprinkles) 500 mg BID PO 07/07/21 09:00 07/10/21 16:07 DC 07/10/21 08:09 Divalproex Sodium (Depakote Sprinkles) 750 mg BID PO 07/10/21 21:00 07/22/21 09:37 Risperidone (RisperDAL) 1 mg DAILY PO 07/18/21 12:00 07/22/21 09:38 Oxybutynin Chloride (Ditropan) 5 mg BID PO 07/19/21 18:00 07/19/21 18:01 DC Cefdinir (Omnicef) 300 mg BID PO 07/19/21 21:00 07/26/21 22:00 07/22/21 09:00 Lactobacillus Rhamnosus (Culturelle) 1 cap BID PO 07/19/21 21:00 07/26/21 22:00 07/22/21 09:38 Oxybutynin Chloride (Ditropan) 5 mg BID PO 07/19/21 21:00 07/22/21 09:39 I have reviewed the current psychotropics carefully including drug interactions. Risk benefit ratio favors no change other than as noted in my dictated progress note. Diagnosis: Problems: (1) Schizoaffective disorder, bipolar type (2) Mild cognitive impairment (3) Anxiety disorder, unspecified (4) Impulse disorder, unspecified (5) Bipolar disorder, curr episode mixed, severe, with psychotic features RAJIV VELAZQUEZ MD Jul 22, 2021 11:41
[2021-07-22 15:41] VITALS: BP 117/72
--- NOTE | 2021-07-22 15:59 | NUR ---
Pt has been withdrawn to room all day besides meal times. She has been cooperative and medication compliant. Pt is still attempting to tell staff that she is unable to do daily tasks herself, such as; wipe after using the bathroom, cover herself up in bed, and transfer from place to place. She became agitated this morning when nursing encouraged her to try and wipe herself first and then if she needed help staff could help. She was able to successful wipe herself clean with no problems or without any struggles. When she was done she said to the nurse "Well you are a horrible nurse. Aren't you suppose to help people that need it?" Nurse explained to her that we want to help keep her as independent as possible and if we see that she is struggling or unable to perform a task herself we are happy to help. She then demanded that the nurse cover her up in her bed. Nursing again redirected her to attempt to perform this task herself first and then if she needed help the nurse could help. She became agitated and told the nurse to leave and that she was a waste of space. Pt did not come out of her room and participate in group. Staff attempted multiple times to ask her to join and she refused. Pt is not motivated to do any tasks herself or participate in anything outside of meals.
[2021-07-22] MEDS: MIRTAZAPINE 15 MG TABLET PO SCH (20:14)
--- NOTE | 2021-07-22 21:51 | PDOC ---
Exam Note: Donte Note: Please also refer to the separate dictated note~for this date of service dictated separately.~Patient seen individually. Discussed the patient with Nursing staff reviewed the chart.~Reviewed interim history and current functioning. Reviewed vital signs,~Labs/ Radiology~and current medications noted below. Continue current treatment with the changes noted in the dictated addendum note Assessment: Vital Signs/I&O: Vital Signs Date Time Temp Pulse Resp B/P (MAP) Pulse Ox O2 Delivery O2 Flow Rate FiO2 07/22/21 15:41 97.3 74 16 117/72 (87) 96 Room Air I & O 07/21/21 07/21/21 07/22/21 15:00 23:00 07:00 Intake Total 840 ml 360 ml Balance 840 ml 360 ml Labs: Laboratory Tests Test 07/22/21 08:11 07/22/21 11:37 07/22/21 16:52 07/22/21 19:15 Glucose (Fingerstick) 269 mg/dL (70-99) H 265 mg/dL (70-99) H 272 mg/dL (70-99) H 280 mg/dL (70-99) H Current Medications: Meds: Laboratory Tests Test 07/22/21 08:11 07/22/21 11:37 07/22/21 16:52 07/22/21 19:15 Glucose (Fingerstick) 269 mg/dL 265 mg/dL 272 mg/dL 280 mg/dL Current Medications Medications (Trade) Dose Ordered Sig/Leonides Route PRN Reason Start Time Stop Time Status Last Admin Dose Admin Acetaminophen (Tylenol) 650 mg PRN Q6HRS PRN PO MILD PAIN / TEMP > 100.3'F 07/03/21 16:30 Cancel Multi-Ingredient Ointment (Analgesic Sterling) 1 swathi PRN QID PRN TP MUSCLE PAIN, 1ST CHOICE 07/03/21 16:30 Al Hydroxide/Mg Hydroxide (Mylanta Plus Xs) 15 ml PRN AFTMEALHC PRN PO DYSPEPSIA 07/03/21 16:30 Magnesium Hydroxide (Milk Of Magnesia) 2,400 mg PRN QHS PRN PO 2ND CHOICE CONSTIPATION 07/03/21 16:30 Acetaminophen (Tylenol) 650 mg PRN Q4HRS PRN PO MILD PAIN / TEMP > 100.3'F 07/03/21 18:45 07/09/21 05:36 Aspirin (Aspirin Enteric Coated) 81 mg DAILY PO 07/04/21 09:00 07/22/21 09:38 Bisacodyl (Dulcolax Tab) 5 mg PRN DAILY PRN PO 3RD CHOICE CONSTIPATION 07/03/21 18:45 Clonazepam (KlonoPIN) 0.5 mg TID PO 07/03/21 21:00 07/22/21 20:15 Diclofenac Sodium (Voltaren) 1 swathi PRN Q6HRS PRN TP MUSCLE PAIN, 2ND CHOICE 07/03/21 18:45 Divalproex Sodium (Depakote Sprinkles) 250 mg BID PO 07/03/21 21:00 07/06/21 23:37 DC 07/06/21 20:18 Furosemide (Lasix) 40 mg DAILY PO 07/04/21 09:00 07/22/21 09:39 Ibuprofen (Motrin) 400 mg PRN Q6HRS PRN PO INFLAMMATION / TEMP > 100.3'F 07/03/21 18:45 07/17/21 09:07 Albuterol/ Ipratropium (Combivent Respimat 20-100 Mcg) 1 puff PRN BID PRN INH SHORTNESS OF BREATH 07/03/21 19:15 Levothyroxine Sodium (Synthroid) 175 mcg DAILY06 PO 07/04/21 06:00 07/22/21 05:58 Al Hydroxide/Mg Hydroxide (Mylanta Plus Xs) 15 ml PRN AFTMEALHC PRN PO DYSPEPSIA 07/03/21 18:45 UNV Magnesium Oxide (Magnesium Oxide) 400 mg DAILY PO 07/04/21 09:00 07/22/21 09:00 Multi-Ingredient Ointment (Analgesic Sterling) 1 swathi PRN QID PRN TP MUSCLE PAIN 07/03/21 18:45 UNV Mirtazapine (Remeron) 15 mg QHS PO 07/03/21 21:00 07/22/21 20:14 Risperidone (RisperDAL CONSTA) 25 mg Q2WKS IM 07/05/21 09:00 07/19/21 13:02 Spironolactone (Aldactone) 25 mg DAILY PO 07/04/21 09:00 07/22/21 09:39 Trazodone HCl (Desyrel) 25 mg DAILY PO 07/04/21 09:00 07/22/21 09:38 Trazodone HCl (Desyrel) 50 mg BID@1300,1700 PO 07/04/21 13:00 07/22/21 17:00 Betamethasone Dipropion Augmented (Betamethasone Dp Aug 0.05% Cream) 1 swtahi PRN BID PRN TP RASH 07/03/21 19:15 Non-Formulary Medication (Eucalyptus Oil/ Menthol/Camphor (Vicks Vaporub Ointment)) 50 gm QHS TP 07/03/21 21:00 UNV Guaifenesin (Robitussin Dm) 10 ml PRN Q4HRS PRN PO COUGH 07/03/21 19:15 Insulin Human Lispro (HumaLOG) 28 units TIDWMEALS SQ 07/04/21 08:00 07/22/21 17:01 Insulin Glargine (Lantus Syringe) 40 unit BID SQ 07/03/21 21:00 07/22/21 09:35 Non-Formulary Medication (Magnesium Hydroxide (Milk Of Magnesia)) 2,400 mg PRN QHS PRN PO CONSTIPATION 07/03/21 18:45 UNV Pantoprazole Sodium (Protonix) 40 mg DAILY PO 07/04/21 09:00 07/22/21 09:38 Oxybutynin Chloride (Ditropan) 5 mg DAILY PO 07/04/21 09:00 07/19/21 17:56 DC 07/19/21 08:47 Polyethylene Glycol (miraLAX) 17 gm PRN Q72HRS PRN PO 1ST CHOICE CONSTIPATION 07/03/21 19:15 Potassium Chloride (Klor-Con) 10 meq DAILY PO 07/04/21 09:00 07/04/21 08:42 DC Propranolol HCl (Inderal) 40 mg DAILY PO 07/04/21 09:00 07/22/21 09:37 Vitamin D (Vitamin D3) 2,000 unit DAILY PO 07/04/21 09:00 07/22/21 09:38 Potassium Chloride (Klor-Con) 20 meq BID PO 07/05/21 09:00 07/22/21 20:15 Potassium Chloride (Klor-Con) 40 meq 1X ONCE PO 07/04/21 08:45 07/04/21 08:46 DC 07/04/21 08:59 Potassium Chloride (Klor-Con) 40 meq 1X ONCE PO 07/04/21 09:45 07/04/21 09:46 DC 07/04/21 10:02 Potassium Chloride (Klor-Con) 40 meq 1X ONCE PO 07/04/21 10:45 07/04/21 10:46 DC 07/04/21 10:45 Divalproex Sodium (Depakote Sprinkles) 500 mg BID PO 07/07/21 09:00 07/10/21 16:07 DC 07/10/21 08:09 Divalproex Sodium (Depakote Sprinkles) 750 mg BID PO 07/10/21 21:00 07/22/21 20:15 Risperidone (RisperDAL) 1 mg DAILY PO 07/18/21 12:00 07/22/21 09:38 Oxybutynin Chloride (Ditropan) 5 mg BID PO 07/19/21 18:00 07/19/21 18:01 DC Cefdinir (Omnicef) 300 mg BID PO 07/19/21 21:00 07/26/21 22:00 07/22/21 20:14 Lactobacillus Rhamnosus (Culturelle) 1 cap BID PO 07/19/21 21:00 07/26/21 22:00 07/22/21 20:15 Oxybutynin Chloride (Ditropan) 5 mg BID PO 07/19/21 21:00 07/22/21 20:15 I have reviewed the current psychotropics carefully including drug interactions. Risk benefit ratio favors no change other than as noted in my dictated progress note. Diagnosis: Problems: (1) Schizoaffective disorder, bipolar type (2) Mild cognitive impairment (3) Anxiety disorder, unspecified (4) Impulse disorder, unspecified (5) Bipolar disorder, curr episode mixed, severe, with psychotic features RAJIV VELAZQUEZ MD Jul 22, 2021 21:51
--- NOTE | 2021-07-23 01:49 | NUR ---
Nursing Note The patient was located in bed this shift for her assessment and medication pass. The patient continues to be withdrawn to her room. The patient was drowsy during interactions with this nurse. The patient was alert to name and location. The patient took her medication whole. The patient is currently sleeping in her room.
[2021-07-23] MEDS: LEVOTHYROXINE 175 MCG TABLET PO SCH (05:52)
[2021-07-23 06:04] VITALS: BP 134/76
[2021-07-23] MEDS: CEFDINIR 300 MG CAPSULE PO SCH ×2 (08:36→19:52)
[2021-07-23] MEDS: CHOLECALCIFEROL (VITAMIN D3) 1,000 UNIT TABLET PO SCH (08:36)
[2021-07-23] MEDS: ASPIRIN ENTERIC COATED 81 MG TABLET.DR. PO SCH (08:36)
[2021-07-23] MEDS: MAGNESIUM OXIDE 400 MG TABLET PO SCH (08:36)
[2021-07-23] MEDS: LACTOBACILLUS RHAMNOSUS GG 1 CAPSULE. PO SCH ×2 (08:37→19:52)
[2021-07-23] MEDS: PANTOPRAZOLE 40 MG TABLET. PO SCH (08:37)
[2021-07-23] MEDS: POTASSIUM CHLORIDE 10 MEQ TABLET.ER. PO SCH ×2 (08:37→19:52)
[2021-07-23] MEDS: risperiDONE 1 MG TABLET. PO SCH (08:37)
[2021-07-23] MEDS: traZODone 50 MG TABLET. PO SCH ×3 (08:37→17:24)
[2021-07-23] MEDS: clonazePAM 0.5 MG TABLET PO SCH ×2 (08:37→19:55)
[2021-07-23] MEDS: DIVALPROEX 125 MG CAP.SPRINK PO SCH ×2 (08:38→19:52)
[2021-07-23] MEDS: FUROSEMIDE 40 MG TABLET PO SCH (08:38)
[2021-07-23] MEDS: OXYBUTYNIN CHLORIDE 5 MG TABLET PO SCH ×2 (08:38→19:52)
[2021-07-23] MEDS: SPIRONOLACTONE 25 MG TABLET PO SCH (08:39)
[2021-07-23] MEDS: INSULIN LISPRO 300 UNITS/3 ML VIAL. SQ SCH ×3 (08:42→17:24)
[2021-07-23] MEDS: PROPRANOLOL 20 MG TABLET. PO SCH (08:48)
[2021-07-23] MEDS: INSULIN GLARGINE SYRINGE. SQ SCH ×2 (08:49→21:42)
[2021-07-23 10:49] LABS: BASO % 1 % (0-3); EOS # 0.5 x10^3/uL (0.0-0.7); EOS % 8 % (0-3); HEMATOCRIT 36.7 % (36.0-47.0); LYMPH # 2.2 x10^3/uL (1.0-4.8); LYMPH % 35 % (24-48); MEAN CORPUSCULAR HEMOGLOBIN 28 pg (25-35); MEAN CORPUSCULAR HGB CONC 33 g/dL (31-37); MEAN CORPUSCULAR VOLUME 86 fL (79-100); MONO # 0.8 x10^3/uL (0.0-1.1); MONO % 12 % (0-9); NEUT # 2.8 x10^3uL (1.8-7.7); NEUT % 44 % (31-73); PLATELET COUNT 150 x10^3/uL (140-400); RED BLOOD COUNT 4.28 x10^6/uL (3.50-5.40); RED CELL DISTRIBUTION WIDTH 14.7 % (11.5-14.5); WHITE BLOOD COUNT 6.3 x10^3/uL (4.0-11.0)
[2021-07-23 11:10] LABS: ALBUMIN 2.6 g/dL (3.4-5.0); ALBUMIN/GLOBULIN RATIO 0.6 (1.0-1.7); CALCIUM 9.2 mg/dL (8.5-10.1); CREATININE 1.1 mg/dL (0.6-1.0); GFR 49.8; POTASSIUM 4.1 mmol/L (3.5-5.1); TOTAL BILIRUBIN 0.3 mg/dL (0.2-1.0); TOTAL PROTEIN 7.3 g/dL (6.4-8.2)
[2021-07-23 14:38] LABS: % ATYL 4 % (0-0); % BANDS 20 % (0-9); % EOS 8 % (0-5); % LYMPHS 31 % (24-48); % MONOS 8 % (0-10); % MYELOS 3 % (0-0); % SEGS 26 % (35-66); PLT ESTIMATE ADEQUATE (ADEQUATE)
[2021-07-23 14:40] LABS: POLYCHROMASIA PRESENT; TEAR DROP CELLS OCC
[2021-07-23 16:08] VITALS: BP 134/74
--- NOTE | 2021-07-23 17:28 | NUR ---
nsg note; Hien has been more awake and alert today, not taking any naps but staying in the hallway or dayroom between meals. As a result, she has been more continent of urine. she is more alert for longer conversations with staff but does not talk much with other patients. she has been med compliant.
[2021-07-23] MEDS: MIRTAZAPINE 15 MG TABLET PO SCH (19:52)
--- NOTE | 2021-07-23 22:37 | PDOC ---
Exam Note: Donte Note: Please also refer to the separate dictated note~for this date of service dictated separately.~Patient seen individually. Discussed the patient with Nursing staff reviewed the chart.~Reviewed interim history and current functioning. Reviewed vital signs,~Labs/ Radiology~and current medications noted below. Continue current treatment with the changes noted in the dictated addendum note Assessment: Vital Signs/I&O: Vital Signs Date Time Temp Pulse Resp B/P (MAP) Pulse Ox O2 Delivery O2 Flow Rate FiO2 07/23/21 16:08 97.6 76 18 134/74 (94) 92 Room Air I & O 07/22/21 07/22/21 07/23/21 15:00 23:00 07:00 Intake Total 360 ml 600 ml Balance 360 ml 600 ml Labs: Laboratory Tests Test 07/23/21 07:13 07/23/21 10:13 07/23/21 11:22 07/23/21 16:31 Glucose (Fingerstick) 245 mg/dL (70-99) H 297 mg/dL (70-99) H 199 mg/dL (70-99) H White Blood Count 6.3 x10^3/uL (4.0-11.0) Red Blood Count 4.28 x10^6/uL (3.50-5.40) Hemoglobin 12.0 g/dL (12.0-15.5) Hematocrit 36.7 % (36.0-47.0) Mean Corpuscular Volume 86 fL (79-100) Mean Corpuscular Hemoglobin 28 pg (25-35) Mean Corpuscular Hemoglobin Concent 33 g/dL (31-37) Red Cell Distribution Width 14.7 % (11.5-14.5) H Platelet Count 150 x10^3/uL (140-400) Neutrophils (%) (Auto) 44 % (31-73) Lymphocytes (%) (Auto) 35 % (24-48) Monocytes (%) (Auto) 12 % (0-9) H Eosinophils (%) (Auto) 8 % (0-3) H Basophils (%) (Auto) 1 % (0-3) Neutrophils # (Auto) 2.8 x10^3uL (1.8-7.7) Lymphocytes # (Auto) 2.2 x10^3/uL (1.0-4.8) Monocytes # (Auto) 0.8 x10^3/uL (0.0-1.1) Eosinophils # (Auto) 0.5 x10^3/uL (0.0-0.7) Basophils # (Auto) 0.0 x10^3/uL (0.0-0.2) Segmented Neutrophils % 26 % (35-66) L Band Neutrophils % 20 % (0-9) H Lymphocytes % 31 % (24-48) Atypical Lymphocytes % (Manual) 4 % (0-0) H Monocytes % 8 % (0-10) Eosinophils % 8 % (0-5) H Myelocytes % 3 % (0-0) H Platelet Estimate Adequate (ADEQUATE) Polychromasia Present Tear Drop Cells Occ Sodium Level 133 mmol/L (136-145) L Potassium Level 4.1 mmol/L (3.5-5.1) Chloride Level 98 mmol/L (98-107) Carbon Dioxide Level 25 mmol/L (21-32) Anion Gap 10 (6-14) Blood Urea Nitrogen 15 mg/dL (7-20) Creatinine 1.1 mg/dL (0.6-1.0) H Estimated GFR (Cockcroft-Gault) 49.8 BUN/Creatinine Ratio 14 (6-20) Glucose Level 378 mg/dL (70-99) H Calcium Level 9.2 mg/dL (8.5-10.1) Total Bilirubin 0.3 mg/dL (0.2-1.0) Aspartate Amino Transferase (AST) 44 U/L (15-37) H Alanine Aminotransferase (ALT) 22 U/L (14-59) Alkaline Phosphatase 98 U/L (46-116) Total Protein 7.3 g/dL (6.4-8.2) Albumin 2.6 g/dL (3.4-5.0) L Albumin/Globulin Ratio 0.6 (1.0-1.7) L Test 07/23/21 21:53 Glucose (Fingerstick) 237 mg/dL (70-99) H Current Medications: Meds: Laboratory Tests Test 07/23/21 07:13 07/23/21 10:13 07/23/21 11:22 07/23/21 16:31 Glucose (Fingerstick) 245 mg/dL 297 mg/dL 199 mg/dL White Blood Count 6.3 x10^3/uL Red Blood Count 4.28 x10^6/uL Hemoglobin 12.0 g/dL Hematocrit 36.7 % Mean Corpuscular Volume 86 fL Mean Corpuscular Hemoglobin 28 pg Mean Corpuscular Hemoglobin Concent 33 g/dL Red Cell Distribution Width 14.7 % Platelet Count 150 x10^3/uL Neutrophils (%) (Auto) 44 % Lymphocytes (%) (Auto) 35 % Monocytes (%) (Auto) 12 % Eosinophils (%) (Auto) 8 % Basophils (%) (Auto) 1 % Neutrophils # (Auto) 2.8 x10^3uL Lymphocytes # (Auto) 2.2 x10^3/uL Monocytes # (Auto) 0.8 x10^3/uL Eosinophils # (Auto) 0.5 x10^3/uL Basophils # (Auto) 0.0 x10^3/uL Segmented Neutrophils % 26 % Band Neutrophils % 20 % Lymphocytes % 31 % Atypical Lymphocytes % (Manual) 4 % Monocytes % 8 % Eosinophils % 8 % Myelocytes % 3 % Platelet Estimate Adequate Polychromasia Present Tear Drop Cells Occ Sodium Level 133 mmol/L Potassium Level 4.1 mmol/L Chloride Level 98 mmol/L Carbon Dioxide Level 25 mmol/L Anion Gap 10 Blood Urea Nitrogen 15 mg/dL Creatinine 1.1 mg/dL Estimated GFR (Cockcroft-Gault) 49.8 BUN/Creatinine Ratio 14 Glucose Level 378 mg/dL Calcium Level 9.2 mg/dL Total Bilirubin 0.3 mg/dL Aspartate Amino Transf (AST/SGOT) 44 U/L Alanine Aminotransferase (ALT/SGPT) 22 U/L Alkaline Phosphatase 98 U/L Total Protein 7.3 g/dL Albumin 2.6 g/dL Albumin/Globulin Ratio 0.6 Test 07/23/21 21:53 Glucose (Fingerstick) 237 mg/dL Current Medications Medications (Trade) Dose Ordered Sig/Leonides Route PRN Reason Start Time Stop Time Status Last Admin Dose Admin Acetaminophen (Tylenol) 650 mg PRN Q6HRS PRN PO MILD PAIN / TEMP > 100.3'F 07/03/21 16:30 Cancel Multi-Ingredient Ointment (Analgesic Bypro) 1 swathi PRN QID PRN TP MUSCLE PAIN, 1ST CHOICE 07/03/21 16:30 Al Hydroxide/Mg Hydroxide (Mylanta Plus Xs) 15 ml PRN AFTMEALHC PRN PO DYSPEPSIA 07/03/21 16:30 07/23/21 20:34 Magnesium Hydroxide (Milk Of Magnesia) 2,400 mg PRN QHS PRN PO 2ND CHOICE CONSTIPATION 07/03/21 16:30 Acetaminophen (Tylenol) 650 mg PRN Q4HRS PRN PO MILD PAIN / TEMP > 100.3'F 07/03/21 18:45 07/09/21 05:36 Aspirin (Aspirin Enteric Coated) 81 mg DAILY PO 07/04/21 09:00 07/23/21 08:36 Bisacodyl (Dulcolax Tab) 5 mg PRN DAILY PRN PO 3RD CHOICE CONSTIPATION 07/03/21 18:45 Clonazepam (KlonoPIN) 0.5 mg TID PO 07/03/21 21:00 07/23/21 04:54 DC 07/22/21 20:15 Diclofenac Sodium (Voltaren) 1 swathi PRN Q6HRS PRN TP MUSCLE PAIN, 2ND CHOICE 07/03/21 18:45 Divalproex Sodium (Depakote Sprinkles) 250 mg BID PO 07/03/21 21:00 07/06/21 23:37 DC 07/06/21 20:18 Furosemide (Lasix) 40 mg DAILY PO 07/04/21 09:00 07/23/21 08:38 Ibuprofen (Motrin) 400 mg PRN Q6HRS PRN PO INFLAMMATION / TEMP > 100.3'F 07/03/21 18:45 07/17/21 09:07 Albuterol/ Ipratropium (Combivent Respimat 20-100 Mcg) 1 puff PRN BID PRN INH SHORTNESS OF BREATH 07/03/21 19:15 Levothyroxine Sodium (Synthroid) 175 mcg DAILY06 PO 07/04/21 06:00 07/23/21 05:52 Al Hydroxide/Mg Hydroxide (Mylanta Plus Xs) 15 ml PRN AFTMEALHC PRN PO DYSPEPSIA 07/03/21 18:45 UNV Magnesium Oxide (Magnesium Oxide) 400 mg DAILY PO 07/04/21 09:00 07/23/21 08:36 Multi-Ingredient Ointment (Analgesic Bypro) 1 swathi PRN QID PRN TP MUSCLE PAIN 07/03/21 18:45 UNV Mirtazapine (Remeron) 15 mg QHS PO 07/03/21 21:00 07/23/21 19:52 Risperidone (RisperDAL CONSTA) 25 mg Q2WKS IM 07/05/21 09:00 07/19/21 13:02 Spironolactone (Aldactone) 25 mg DAILY PO 07/04/21 09:00 07/23/21 08:39 Trazodone HCl (Desyrel) 25 mg DAILY PO 07/04/21 09:00 07/23/21 08:37 Trazodone HCl (Desyrel) 50 mg BID@1300,1700 PO 07/04/21 13:00 07/23/21 17:24 Betamethasone Dipropion Augmented (Betamethasone Dp Aug 0.05% Cream) 1 swathi PRN BID PRN TP RASH 07/03/21 19:15 Non-Formulary Medication (Eucalyptus Oil/ Menthol/Camphor (Vicks Vaporub Ointment)) 50 gm QHS TP 07/03/21 21:00 UNV Guaifenesin (Robitussin Dm) 10 ml PRN Q4HRS PRN PO COUGH 07/03/21 19:15 Insulin Human Lispro (HumaLOG) 28 units TIDWMEALS SQ 07/04/21 08:00 07/23/21 17:24 Insulin Glargine (Lantus Syringe) 40 unit BID SQ 07/03/21 21:00 07/23/21 21:42 Non-Formulary Medication (Magnesium Hydroxide (Milk Of Magnesia)) 2,400 mg PRN QHS PRN PO CONSTIPATION 07/03/21 18:45 UNV Pantoprazole Sodium (Protonix) 40 mg DAILY PO 07/04/21 09:00 07/23/21 08:37 Oxybutynin Chloride (Ditropan) 5 mg DAILY PO 07/04/21 09:00 07/19/21 17:56 DC 07/19/21 08:47 Polyethylene Glycol (miraLAX) 17 gm PRN Q72HRS PRN PO 1ST CHOICE CONSTIPATION 07/03/21 19:15 Potassium Chloride (Klor-Con) 10 meq DAILY PO 07/04/21 09:00 07/04/21 08:42 DC Propranolol HCl (Inderal) 40 mg DAILY PO 07/04/21 09:00 07/23/21 08:48 Vitamin D (Vitamin D3) 2,000 unit DAILY PO 07/04/21 09:00 07/23/21 08:36 Potassium Chloride (Klor-Con) 20 meq BID PO 07/05/21 09:00 07/23/21 19:52 Potassium Chloride (Klor-Con) 40 meq 1X ONCE PO 07/04/21 08:45 07/04/21 08:46 DC 07/04/21 08:59 Potassium Chloride (Klor-Con) 40 meq 1X ONCE PO 07/04/21 09:45 07/04/21 09:46 DC 07/04/21 10:02 Potassium Chloride (Klor-Con) 40 meq 1X ONCE PO 07/04/21 10:45 07/04/21 10:46 DC 07/04/21 10:45 Divalproex Sodium (Depakote Sprinkles) 500 mg BID PO 07/07/21 09:00 07/10/21 16:07 DC 07/10/21 08:09 Divalproex Sodium (Depakote Sprinkles) 750 mg BID PO 07/10/21 21:00 07/23/21 19:52 Risperidone (RisperDAL) 1 mg DAILY PO 07/18/21 12:00 07/23/21 08:37 Oxybutynin Chloride (Ditropan) 5 mg BID PO 07/19/21 18:00 07/19/21 18:01 DC Cefdinir (Omnicef) 300 mg BID PO 07/19/21 21:00 07/26/21 22:00 07/23/21 19:52 Lactobacillus Rhamnosus (Culturelle) 1 cap BID PO 07/19/21 21:00 07/26/21 22:00 07/23/21 19:52 Oxybutynin Chloride (Ditropan) 5 mg BID PO 07/19/21 21:00 07/23/21 19:52 Clonazepam (KlonoPIN) 0.5 mg BID PO 07/23/21 09:00 07/23/21 19:55 Current Medications Medications (Trade) Dose Ordered Sig/Leonides Route PRN Reason Start Time Stop Time Status Last Admin Dose Admin Clonazepam (KlonoPIN) 0.5 mg BID PO 07/23/21 09:00 07/23/21 19:55 I have reviewed the current psychotropics carefully including drug interactions. Risk benefit ratio favors no change other than as noted in my dictated progress note. Diagnosis: Problems: (1) Schizoaffective disorder, bipolar type (2) Mild cognitive impairment (3) Anxiety disorder, unspecified (4) Impulse disorder, unspecified (5) Bipolar disorder, curr episode mixed, severe, with psychotic features RAJIV VELAZQUEZ MD Jul 23, 2021 22:37
--- NOTE | 2021-07-24 01:26 | NUR ---
Nursing Note The patient was calm and cooperative this shift. The patient was compliant with her medications and took them whole. The patient remained in bed this shift except during trips to the bathroom. Currently sleeping in her room.
[2021-07-24] MEDS: LEVOTHYROXINE 175 MCG TABLET PO SCH (05:47)
[2021-07-24 06:06] VITALS: BP 133/73
[2021-07-24] MEDS: PANTOPRAZOLE 40 MG TABLET. PO SCH (08:19)
[2021-07-24] MEDS: ASPIRIN ENTERIC COATED 81 MG TABLET.DR. PO SCH (08:19)
[2021-07-24] MEDS: POTASSIUM CHLORIDE 10 MEQ TABLET.ER. PO SCH ×2 (08:19→19:56)
[2021-07-24] MEDS: PROPRANOLOL 20 MG TABLET. PO SCH (08:19)
[2021-07-24] MEDS: risperiDONE 1 MG TABLET. PO SCH (08:19)
[2021-07-24] MEDS: LACTOBACILLUS RHAMNOSUS GG 1 CAPSULE. PO SCH ×2 (08:20→19:56)
[2021-07-24] MEDS: OXYBUTYNIN CHLORIDE 5 MG TABLET PO SCH ×2 (08:20→19:57)
[2021-07-24] MEDS: clonazePAM 0.5 MG TABLET PO SCH ×2 (08:20→19:56)
[2021-07-24] MEDS: traZODone 50 MG TABLET. PO SCH ×3 (08:23→17:20)
[2021-07-24] MEDS: CEFDINIR 300 MG CAPSULE PO SCH ×2 (08:24→19:56)
[2021-07-24] MEDS: FUROSEMIDE 40 MG TABLET PO SCH (08:24)
[2021-07-24] MEDS: CHOLECALCIFEROL (VITAMIN D3) 1,000 UNIT TABLET PO SCH (08:24)
[2021-07-24] MEDS: DIVALPROEX 125 MG CAP.SPRINK PO SCH ×2 (08:24→19:57)
[2021-07-24] MEDS: SPIRONOLACTONE 25 MG TABLET PO SCH (08:25)
[2021-07-24] MEDS: MAGNESIUM OXIDE 400 MG TABLET PO SCH (08:25)
[2021-07-24] MEDS: INSULIN LISPRO 300 UNITS/3 ML VIAL. SQ SCH ×3 (08:36→17:22)
[2021-07-24] MEDS: INSULIN GLARGINE SYRINGE. SQ SCH ×2 (12:17→21:11)
--- NOTE | 2021-07-24 12:18 | NUR ---
Nsg Note; Hien has been awake and alert this am, spending time in the [facility] with other residents. she is calm and med compliant
[2021-07-24 16:33] VITALS: BP 128/85
[2021-07-24] MEDS: MIRTAZAPINE 15 MG TABLET PO SCH (19:56)
--- NOTE | 2021-07-24 21:24 | NUR ---
Patient went to bed early. She was compliant with medications taken whole. No adverse behaviors noted this shift.
--- NOTE | 2021-07-24 22:28 | PDOC ---
Exam Note: Donte Note: Please also refer to the separate dictated note~for this date of service dictated separately.~Patient seen individually. Discussed the patient with Nursing staff reviewed the chart.~Reviewed interim history and current functioning. Reviewed vital signs,~Labs/ Radiology~and current medications noted below. Continue current treatment with the changes noted in the dictated addendum note Assessment: Vital Signs/I&O: Vital Signs Date Time Temp Pulse Resp B/P (MAP) Pulse Ox O2 Delivery O2 Flow Rate FiO2 07/24/21 16:33 97.5 68 18 128/85 (99) 98 07/24/21 06:06 Room Air I & O 07/23/21 07/23/21 07/24/21 15:00 23:00 07:00 Intake Total 960 ml 600 ml Balance 960 ml 600 ml Labs: Laboratory Tests Test 07/24/21 06:00 07/24/21 07:18 07/24/21 11:50 07/24/21 16:38 SARS-CoV-2 (PCR) Negative (NEGATIVE) Glucose (Fingerstick) 255 mg/dL (70-99) H 279 mg/dL (70-99) H 244 mg/dL (70-99) H Test 07/24/21 19:20 Glucose (Fingerstick) 286 mg/dL (70-99) H Current Medications: I have reviewed the current psychotropics carefully including drug interactions. Risk benefit ratio favors no change other than as noted in my dictated progress note. Diagnosis: Problems: (1) Schizoaffective disorder, bipolar type (2) Mild cognitive impairment (3) Anxiety disorder, unspecified (4) Impulse disorder, unspecified (5) Bipolar disorder, curr episode mixed, severe, with psychotic features RAJIV VELAZQUEZ MD Jul 24, 2021 22:28
--- NOTE | 2021-07-24 22:28 | PDOC ---
Exam Note: Donte Note: This note is a late entry for 07/22/2021 covers elements not covered in my initial note. Subjective: The patient was seen individually in the evening of 07/22/2021 with Amol COPELAND, discussed and reviewed the chart. The patient slept 9-1/2 hours previous night. She has been withdrawn, spends much time in her room. She is on Klonopin 0.5 mg t.i.d. We will reduce to twice a day to help with the sedation. She refuses to do some of her chore activities and covers herself and lays down in bed. She remains somewhat paranoid. I met with her in her room. Review of Systems: Ambulation impaired. No CV, pulmonary, eye, ENT system symptoms on review. Mental Status Exam: The patient is oriented reasonably. Speech coherent has some latency. Often response is monosyllabic. Abstraction fair. Computation impaired. Language function intact. Mood and affect withdrawn. Laboratory Data: Reviewed. Impression: Schizoaffective disorder bipolar type mixed with psychotic features. Anxiety disorder unspecified. Impulse control disorder unspecified. Plan: No change from initial note. She is on Klonopin 0.5 mg t.i.d. We will reduce to twice a day to help with the sedation. Since she appears paranoid, we will add Risperdal oral 1 mg daily. Continue with the Risperdal Consta 25 mg every 14 days, Depakote is 750 mg b.i.d. level therapeutic at 73. Continue trazodone unchanged for now. Assessment: Vital Signs/I&O: Vital Signs Date Time Temp Pulse Resp B/P (MAP) Pulse Ox O2 Delivery O2 Flow Rate FiO2 07/24/21 16:33 97.5 68 18 128/85 (99) 98 07/24/21 06:06 Room Air I & O 07/23/21 07/23/21 07/24/21 15:00 23:00 07:00 Intake Total 960 ml 600 ml Balance 960 ml 600 ml Labs: Laboratory Tests Test 07/24/21 06:00 07/24/21 07:18 07/24/21 11:50 07/24/21 16:38 SARS-CoV-2 (PCR) Negative (NEGATIVE) Glucose (Fingerstick) 255 mg/dL (70-99) H 279 mg/dL (70-99) H 244 mg/dL (70-99) H Test 07/24/21 19:20 Glucose (Fingerstick) 286 mg/dL (70-99) H Current Medications: Meds: Laboratory Tests Test 07/24/21 06:00 07/24/21 07:18 07/24/21 11:50 07/24/21 16:38 Coronavirus (COVID-19)(PCR) Negative Glucose (Fingerstick) 255 mg/dL 279 mg/dL 244 mg/dL Test 07/24/21 19:20 Glucose (Fingerstick) 286 mg/dL Current Medications Medications (Trade) Dose Ordered Sig/Leonides Route PRN Reason Start Time Stop Time Status Last Admin Dose Admin Acetaminophen (Tylenol) 650 mg PRN Q6HRS PRN PO MILD PAIN / TEMP > 100.3'F 07/03/21 16:30 Cancel Multi-Ingredient Ointment (Analgesic [place]) 1 swathi PRN QID PRN TP MUSCLE PAIN, 1ST CHOICE 07/03/21 16:30 Al Hydroxide/Mg Hydroxide (Mylanta Plus Xs) 15 ml PRN AFTMEALHC PRN PO DYSPEPSIA 07/03/21 16:30 07/23/21 20:34 Magnesium Hydroxide (Milk Of Magnesia) 2,400 mg PRN QHS PRN PO 2ND CHOICE CONSTIPATION 07/03/21 16:30 Acetaminophen (Tylenol) 650 mg PRN Q4HRS PRN PO MILD PAIN / TEMP > 100.3'F 07/03/21 18:45 07/09/21 05:36 Aspirin (Aspirin Enteric Coated) 81 mg DAILY PO 07/04/21 09:00 07/24/21 08:19 Bisacodyl (Dulcolax Tab) 5 mg PRN DAILY PRN PO 3RD CHOICE CONSTIPATION 07/03/21 18:45 Clonazepam (KlonoPIN) 0.5 mg TID PO 07/03/21 21:00 07/23/21 04:54 DC 07/22/21 20:15 Diclofenac Sodium (Voltaren) 1 swathi PRN Q6HRS PRN TP MUSCLE PAIN, 2ND CHOICE 07/03/21 18:45 Divalproex Sodium (Depakote Sprinkles) 250 mg BID PO 07/03/21 21:00 07/06/21 23:37 DC 07/06/21 20:18 Furosemide (Lasix) 40 mg DAILY PO 07/04/21 09:00 07/24/21 08:24 Ibuprofen (Motrin) 400 mg PRN Q6HRS PRN PO INFLAMMATION / TEMP > 100.3'F 07/03/21 18:45 07/17/21 09:07 Albuterol/ Ipratropium (Combivent Respimat 20-100 Mcg) 1 puff PRN BID PRN INH SHORTNESS OF BREATH 07/03/21 19:15 Levothyroxine Sodium (Synthroid) 175 mcg DAILY06 PO 07/04/21 06:00 07/24/21 05:47 Al Hydroxide/Mg Hydroxide (Mylanta Plus Xs) 15 ml PRN AFTMEALHC PRN PO DYSPEPSIA 07/03/21 18:45 UNV Magnesium Oxide (Magnesium Oxide) 400 mg DAILY PO 07/04/21 09:00 07/24/21 08:25 Multi-Ingredient Ointment (Analgesic [place]) 1 swathi PRN QID PRN TP MUSCLE PAIN 07/03/21 18:45 UNV Mirtazapine (Remeron) 15 mg QHS PO 07/03/21 21:00 07/24/21 19:56 Risperidone (RisperDAL CONSTA) 25 mg Q2WKS IM 07/05/21 09:00 07/19/21 13:02 Spironolactone (Aldactone) 25 mg DAILY PO 07/04/21 09:00 07/24/21 08:25 Trazodone HCl (Desyrel) 25 mg DAILY PO 07/04/21 09:00 07/24/21 08:23 Trazodone HCl (Desyrel) 50 mg BID@1300,1700 PO 07/04/21 13:00 07/24/21 18:16 DC 07/24/21 17:20 Betamethasone Dipropion Augmented (Betamethasone Dp Aug 0.05% Cream) 1 swathi PRN BID PRN TP RASH 07/03/21 19:15 Non-Formulary Medication (Eucalyptus Oil/ Menthol/Camphor (Vicks Vaporub Ointment)) 50 gm QHS TP 07/03/21 21:00 UNV Guaifenesin (Robitussin Dm) 10 ml PRN Q4HRS PRN PO COUGH 07/03/21 19:15 Insulin Human Lispro (HumaLOG) 28 units TIDWMEALS SQ 07/04/21 08:00 07/24/21 17:22 Insulin Glargine (Lantus Syringe) 40 unit BID SQ 07/03/21 21:00 07/24/21 21:11 Non-Formulary Medication (Magnesium Hydroxide (Milk Of Magnesia)) 2,400 mg PRN QHS PRN PO CONSTIPATION 07/03/21 18:45 UNV Pantoprazole Sodium (Protonix) 40 mg DAILY PO 07/04/21 09:00 07/24/21 08:19 Oxybutynin Chloride (Ditropan) 5 mg DAILY PO 07/04/21 09:00 07/19/21 17:56 DC 07/19/21 08:47 Polyethylene Glycol (miraLAX) 17 gm PRN Q72HRS PRN PO 1ST CHOICE CONSTIPATION 07/03/21 19:15 Potassium Chloride (Klor-Con) 10 meq DAILY PO 07/04/21 09:00 07/04/21 08:42 DC Propranolol HCl (Inderal) 40 mg DAILY PO 07/04/21 09:00 07/24/21 08:19 Vitamin D (Vitamin D3) 2,000 unit DAILY PO 07/04/21 09:00 07/24/21 08:24 Potassium Chloride (Klor-Con) 20 meq BID PO 07/05/21 09:00 07/24/21 19:56 Potassium Chloride (Klor-Con) 40 meq 1X ONCE PO 07/04/21 08:45 07/04/21 08:46 DC 07/04/21 08:59 Potassium Chloride (Klor-Con) 40 meq 1X ONCE PO 07/04/21 09:45 07/04/21 09:46 DC 07/04/21 10:02 Potassium Chloride (Klor-Con) 40 meq 1X ONCE PO 07/04/21 10:45 07/04/21 10:46 DC 07/04/21 10:45 Divalproex Sodium (Depakote Sprinkles) 500 mg BID PO 07/07/21 09:00 07/10/21 16:07 DC 07/10/21 08:09 Divalproex Sodium (Depakote Sprinkles) 750 mg BID PO 07/10/21 21:00 07/24/21 19:57 Risperidone (RisperDAL) 1 mg DAILY PO 07/18/21 12:00 07/24/21 08:19 Oxybutynin Chloride (Ditropan) 5 mg BID PO 07/19/21 18:00 07/19/21 18:01 DC Cefdinir (Omnicef) 300 mg BID PO 07/19/21 21:00 07/26/21 22:00 07/24/21 19:56 Lactobacillus Rhamnosus (Culturelle) 1 cap BID PO 07/19/21 21:00 07/26/21 22:00 07/24/21 19:56 Oxybutynin Chloride (Ditropan) 5 mg BID PO 07/19/21 21:00 07/24/21 19:57 Clonazepam (KlonoPIN) 0.5 mg BID PO 07/23/21 09:00 07/24/21 19:56 I have reviewed the current psychotropics carefully including drug interactions. Risk benefit ratio favors no change other than as noted in my dictated progress note. Diagnosis: Problems: (1) Schizoaffective disorder, bipolar type (2) Mild cognitive impairment (3) Anxiety disorder, unspecified (4) Impulse disorder, unspecified (5) Bipolar disorder, curr episode mixed, severe, with psychotic features RAJIV VELAZQUEZ MD Jul 24, 2021 22:28
[2021-07-25] MEDS: LEVOTHYROXINE 175 MCG TABLET PO SCH (06:18)
--- NOTE | 2021-07-25 06:18 | NUR ---
Levothyroxine not scanned but was given when [employer] was down.
[2021-07-25 06:22] VITALS: BP 129/74
--- NOTE | 2021-07-25 06:45 | PDOC ---
Exam Note: Donte Note: This note is a late entry for 07/23/2021 covers elements not covered in my initial note. Subjective: The patient was seen individually in the evening of 07/23/2021 with Amol COPELAND, discussed and reviewed the chart. The patient slept 9 hours previous night. She has been more interactive since Klonopin was reduced. I met with her in her room. She was wanting some extra covers which I gave her and then she wanted the bathroom lights switched off at the end of our visit which I did. Review of Systems: Ambulation impaired. No CV, pulmonary, eye, ENT system symptoms on review. Mental Status Exam: The patient is oriented reasonably. Speech coherent has some latency. Often response is monosyllabic. Abstraction fair. Computation impaired. Language function intact. Mood and affect withdrawn. Laboratory Data: Reviewed. Impression: Schizoaffective disorder bipolar type mixed with psychotic features. Anxiety disorder unspecified. Impulse control disorder unspecified. Plan: No change from initial note. Assessment: Vital Signs/I&O: Vital Signs Date Time Temp Pulse Resp B/P (MAP) Pulse Ox O2 Delivery O2 Flow Rate FiO2 07/25/21 06:22 97.7 73 18 129/74 (92) 94 Room Air I & O 07/24/21 07/24/21 07/25/21 15:00 23:00 07:00 Intake Total 1180 ml 370 ml Balance 1180 ml 370 ml Labs: Laboratory Tests Test 07/24/21 07:18 07/24/21 11:50 07/24/21 16:38 07/24/21 19:20 Glucose (Fingerstick) 255 mg/dL (70-99) H 279 mg/dL (70-99) H 244 mg/dL (70-99) H 286 mg/dL (70-99) H Current Medications: Meds: Laboratory Tests Test 07/24/21 07:18 07/24/21 11:50 07/24/21 16:38 07/24/21 19:20 Glucose (Fingerstick) 255 mg/dL 279 mg/dL 244 mg/dL 286 mg/dL Current Medications Medications (Trade) Dose Ordered Sig/Leonides Route PRN Reason Start Time Stop Time Status Last Admin Dose Admin Acetaminophen (Tylenol) 650 mg PRN Q6HRS PRN PO MILD PAIN / TEMP > 100.3'F 07/03/21 16:30 Cancel Multi-Ingredient Ointment (Analgesic [place]) 1 swathi PRN QID PRN TP MUSCLE PAIN, 1ST CHOICE 07/03/21 16:30 Al Hydroxide/Mg Hydroxide (Mylanta Plus Xs) 15 ml PRN AFTMEALHC PRN PO DYSPEPSIA 07/03/21 16:30 07/23/21 20:34 Magnesium Hydroxide (Milk Of Magnesia) 2,400 mg PRN QHS PRN PO 2ND CHOICE CONSTIPATION 07/03/21 16:30 Acetaminophen (Tylenol) 650 mg PRN Q4HRS PRN PO MILD PAIN / TEMP > 100.3'F 07/03/21 18:45 07/09/21 05:36 Aspirin (Aspirin Enteric Coated) 81 mg DAILY PO 07/04/21 09:00 07/24/21 08:19 Bisacodyl (Dulcolax Tab) 5 mg PRN DAILY PRN PO 3RD CHOICE CONSTIPATION 07/03/21 18:45 Clonazepam (KlonoPIN) 0.5 mg TID PO 07/03/21 21:00 07/23/21 04:54 DC 07/22/21 20:15 Diclofenac Sodium (Voltaren) 1 swathi PRN Q6HRS PRN TP MUSCLE PAIN, 2ND CHOICE 07/03/21 18:45 Divalproex Sodium (Depakote Sprinkles) 250 mg BID PO 07/03/21 21:00 07/06/21 23:37 DC 07/06/21 20:18 Furosemide (Lasix) 40 mg DAILY PO 07/04/21 09:00 07/24/21 08:24 Ibuprofen (Motrin) 400 mg PRN Q6HRS PRN PO INFLAMMATION / TEMP > 100.3'F 07/03/21 18:45 07/17/21 09:07 Albuterol/ Ipratropium (Combivent Respimat 20-100 Mcg) 1 puff PRN BID PRN INH SHORTNESS OF BREATH 07/03/21 19:15 Levothyroxine Sodium (Synthroid) 175 mcg DAILY06 PO 07/04/21 06:00 07/25/21 06:18 Al Hydroxide/Mg Hydroxide (Mylanta Plus Xs) 15 ml PRN AFTMEALHC PRN PO DYSPEPSIA 07/03/21 18:45 UNV Magnesium Oxide (Magnesium Oxide) 400 mg DAILY PO 07/04/21 09:00 07/24/21 08:25 Multi-Ingredient Ointment (Analgesic [place]) 1 swathi PRN QID PRN TP MUSCLE PAIN 07/03/21 18:45 UNV Mirtazapine (Remeron) 15 mg QHS PO 07/03/21 21:00 07/24/21 19:56 Risperidone (RisperDAL CONSTA) 25 mg Q2WKS IM 07/05/21 09:00 07/19/21 13:02 Spironolactone (Aldactone) 25 mg DAILY PO 07/04/21 09:00 07/24/21 08:25 Trazodone HCl (Desyrel) 25 mg DAILY PO 07/04/21 09:00 07/24/21 08:23 Trazodone HCl (Desyrel) 50 mg BID@1300,1700 PO 07/04/21 13:00 07/24/21 18:16 DC 07/24/21 17:20 Betamethasone Dipropion Augmented (Betamethasone Dp Aug 0.05% Cream) 1 swathi PRN BID PRN TP RASH 07/03/21 19:15 Non-Formulary Medication (Eucalyptus Oil/ Menthol/Camphor (Vicks Vaporub Ointment)) 50 gm QHS TP 07/03/21 21:00 UNV Guaifenesin (Robitussin Dm) 10 ml PRN Q4HRS PRN PO COUGH 07/03/21 19:15 Insulin Human Lispro (HumaLOG) 28 units TIDWMEALS SQ 07/04/21 08:00 07/24/21 17:22 Insulin Glargine (Lantus Syringe) 40 unit BID SQ 07/03/21 21:00 07/24/21 21:11 Non-Formulary Medication (Magnesium Hydroxide (Milk Of Magnesia)) 2,400 mg PRN QHS PRN PO CONSTIPATION 07/03/21 18:45 UNV Pantoprazole Sodium (Protonix) 40 mg DAILY PO 07/04/21 09:00 07/24/21 08:19 Oxybutynin Chloride (Ditropan) 5 mg DAILY PO 07/04/21 09:00 07/19/21 17:56 DC 07/19/21 08:47 Polyethylene Glycol (miraLAX) 17 gm PRN Q72HRS PRN PO 1ST CHOICE CONSTIPATION 07/03/21 19:15 Potassium Chloride (Klor-Con) 10 meq DAILY PO 07/04/21 09:00 07/04/21 08:42 DC Propranolol HCl (Inderal) 40 mg DAILY PO 07/04/21 09:00 07/24/21 08:19 Vitamin D (Vitamin D3) 2,000 unit DAILY PO 07/04/21 09:00 07/24/21 08:24 Potassium Chloride (Klor-Con) 20 meq BID PO 07/05/21 09:00 07/24/21 19:56 Potassium Chloride (Klor-Con) 40 meq 1X ONCE PO 07/04/21 08:45 07/04/21 08:46 DC 07/04/21 08:59 Potassium Chloride (Klor-Con) 40 meq 1X ONCE PO 07/04/21 09:45 07/04/21 09:46 DC 07/04/21 10:02 Potassium Chloride (Klor-Con) 40 meq 1X ONCE PO 07/04/21 10:45 07/04/21 10:46 DC 07/04/21 10:45 Divalproex Sodium (Depakote Sprinkles) 500 mg BID PO 07/07/21 09:00 07/10/21 16:07 DC 07/10/21 08:09 Divalproex Sodium (Depakote Sprinkles) 750 mg BID PO 07/10/21 21:00 07/24/21 19:57 Risperidone (RisperDAL) 1 mg DAILY PO 07/18/21 12:00 07/24/21 08:19 Oxybutynin Chloride (Ditropan) 5 mg BID PO 07/19/21 18:00 07/19/21 18:01 DC Cefdinir (Omnicef) 300 mg BID PO 07/19/21 21:00 07/26/21 22:00 07/24/21 19:56 Lactobacillus Rhamnosus (Culturelle) 1 cap BID PO 07/19/21 21:00 07/26/21 22:00 07/24/21 19:56 Oxybutynin Chloride (Ditropan) 5 mg BID PO 07/19/21 21:00 07/24/21 19:57 Clonazepam (KlonoPIN) 0.5 mg BID PO 07/23/21 09:00 07/24/21 19:56 I have reviewed the current psychotropics carefully including drug interactions. Risk benefit ratio favors no change other than as noted in my dictated progress note. Diagnosis: Problems: (1) Schizoaffective disorder, bipolar type (2) Mild cognitive impairment (3) Anxiety disorder, unspecified (4) Impulse disorder, unspecified (5) Bipolar disorder, curr episode mixed, severe, with psychotic features RAJIV VELAZQUEZ MD Jul 25, 2021 06:45
[2021-07-25] MEDS: MAGNESIUM OXIDE 400 MG TABLET PO SCH (09:30)
[2021-07-25] MEDS: ASPIRIN ENTERIC COATED 81 MG TABLET.DR. PO SCH (09:31)
[2021-07-25] MEDS: OXYBUTYNIN CHLORIDE 5 MG TABLET PO SCH ×2 (09:32→20:36)
[2021-07-25] MEDS: PROPRANOLOL 20 MG TABLET. PO SCH (09:32)
[2021-07-25] MEDS: CHOLECALCIFEROL (VITAMIN D3) 1,000 UNIT TABLET PO SCH (09:32)
[2021-07-25] MEDS: SPIRONOLACTONE 25 MG TABLET PO SCH (09:32)
[2021-07-25] MEDS: LACTOBACILLUS RHAMNOSUS GG 1 CAPSULE. PO SCH ×2 (09:32→20:37)
[2021-07-25] MEDS: CEFDINIR 300 MG CAPSULE PO SCH ×2 (09:33→20:38)
[2021-07-25] MEDS: risperiDONE 1 MG TABLET. PO SCH (09:33)
[2021-07-25] MEDS: POTASSIUM CHLORIDE 10 MEQ TABLET.ER. PO SCH ×2 (09:33→20:38)
[2021-07-25] MEDS: FUROSEMIDE 40 MG TABLET PO SCH (09:33)
[2021-07-25] MEDS: clonazePAM 0.5 MG TABLET PO SCH ×2 (09:33→20:36)
[2021-07-25] MEDS: PANTOPRAZOLE 40 MG TABLET. PO SCH (09:34)
[2021-07-25] MEDS: traZODone 50 MG TABLET. PO SCH (09:34)
[2021-07-25] MEDS: DIVALPROEX 125 MG CAP.SPRINK PO SCH ×2 (09:34→20:37)
[2021-07-25] MEDS: INSULIN GLARGINE SYRINGE. SQ SCH ×2 (09:41→20:39)
[2021-07-25] MEDS: INSULIN LISPRO 300 UNITS/3 ML VIAL. SQ SCH ×3 (09:42→17:53)
--- NOTE | 2021-07-25 11:02 | NUR ---
WEEKLY ACTIVITY THERAPY NOTE Date of Admission:07/03/21 Date of AT Assessment: 07/05/21 Precipitating behaviors that initiated intake and admission: refusing meds, decreased blood sugars, irritable, agitated, verbally aggressive, swearing, screaming Goal aimed: to increase stimulation and socialization Initial Goal: Pt. will participate in at least five individual or Activity Therapy group sessions per week. Weekly progress towards goal: did not achieve, / Group participation level: 1 min, 3 full Weekly highlights: [place] , solved tribond puzzles Thursday, independently answered name 5 questions Thursday Behaviors observed: Thursday she was irritable with another pt and said that she was taking too long to answer the question and told AT that her arms were too small for her body and was stuck on the topic for a couple of minutes, frustrated when activities are difficult Plan: no change to goal Beneficial adaptations: music, boundary setting
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
[2021-07-25 16:07] VITALS: BP 106/50
[2021-07-25] MEDS: IBUPROFEN 400 MG TABLET. PO PRN (16:11)
--- NOTE | 2021-07-25 18:12 | NUR ---
Patient has been withdrawn, mildly confused, and flat most of this shift. She spent a small amount of time sitting in the day room or cabrera but spent most of her time in her room. She complained of a headache in the afternoon; prn medication provided per eMAR with good effect. Will continue to monitor and report to oncoming shift.
[2021-07-25] MEDS: MIRTAZAPINE 15 MG TABLET PO SCH (20:37)
--- NOTE | 2021-07-25 22:08 | PDOC ---
Exam Note: Donte Note: Please also refer to the separate dictated note~for this date of service dictated separately.~Patient seen individually. Discussed the patient with Nursing staff reviewed the chart.~Reviewed interim history and current functioning. Reviewed vital signs,~Labs/ Radiology~and current medications noted below. Continue current treatment with the changes noted in the dictated addendum note Assessment: Vital Signs/I&O: Vital Signs Date Time Temp Pulse Resp B/P (MAP) Pulse Ox O2 Delivery O2 Flow Rate FiO2 07/25/21 16:07 97.8 70 16 106/50 (68) 98 07/25/21 06:22 Room Air I & O 07/24/21 07/24/21 07/25/21 15:00 23:00 07:00 Intake Total 1180 ml 370 ml Balance 1180 ml 370 ml Labs: Laboratory Tests Test 07/25/21 07:31 07/25/21 11:29 07/25/21 16:32 07/25/21 19:20 Glucose (Fingerstick) 218 mg/dL (70-99) H 357 mg/dL (70-99) H 202 mg/dL (70-99) H 305 mg/dL (70-99) H Current Medications: Meds: Laboratory Tests Test 07/25/21 07:31 07/25/21 11:29 07/25/21 16:32 07/25/21 19:20 Glucose (Fingerstick) 218 mg/dL 357 mg/dL 202 mg/dL 305 mg/dL Current Medications Medications (Trade) Dose Ordered Sig/Leonides Route PRN Reason Start Time Stop Time Status Last Admin Dose Admin Acetaminophen (Tylenol) 650 mg PRN Q6HRS PRN PO MILD PAIN / TEMP > 100.3'F 07/03/21 16:30 Cancel Multi-Ingredient Ointment (Analgesic [place]) 1 swathi PRN QID PRN TP MUSCLE PAIN, 1ST CHOICE 07/03/21 16:30 Al Hydroxide/Mg Hydroxide (Mylanta Plus Xs) 15 ml PRN AFTMEALHC PRN PO DYSPEPSIA 07/03/21 16:30 07/23/21 20:34 Magnesium Hydroxide (Milk Of Magnesia) 2,400 mg PRN QHS PRN PO 2ND CHOICE CONSTIPATION 07/03/21 16:30 Acetaminophen (Tylenol) 650 mg PRN Q4HRS PRN PO MILD PAIN / TEMP > 100.3'F 07/03/21 18:45 07/09/21 05:36 Aspirin (Aspirin Enteric Coated) 81 mg DAILY PO 07/04/21 09:00 07/25/21 09:31 Bisacodyl (Dulcolax Tab) 5 mg PRN DAILY PRN PO 3RD CHOICE CONSTIPATION 07/03/21 18:45 Clonazepam (KlonoPIN) 0.5 mg TID PO 07/03/21 21:00 07/23/21 04:54 DC 07/22/21 20:15 Diclofenac Sodium (Voltaren) 1 swathi PRN Q6HRS PRN TP MUSCLE PAIN, 2ND CHOICE 07/03/21 18:45 Divalproex Sodium (Depakote Sprinkles) 250 mg BID PO 07/03/21 21:00 07/06/21 23:37 DC 07/06/21 20:18 Furosemide (Lasix) 40 mg DAILY PO 07/04/21 09:00 07/25/21 09:33 Ibuprofen (Motrin) 400 mg PRN Q6HRS PRN PO INFLAMMATION / TEMP > 100.3'F 07/03/21 18:45 07/25/21 16:11 Albuterol/ Ipratropium (Combivent Respimat 20-100 Mcg) 1 puff PRN BID PRN INH SHORTNESS OF BREATH 07/03/21 19:15 Levothyroxine Sodium (Synthroid) 175 mcg DAILY06 PO 07/04/21 06:00 07/25/21 06:18 Al Hydroxide/Mg Hydroxide (Mylanta Plus Xs) 15 ml PRN AFTMEALHC PRN PO DYSPEPSIA 07/03/21 18:45 UNV Magnesium Oxide (Magnesium Oxide) 400 mg DAILY PO 07/04/21 09:00 07/25/21 09:30 Multi-Ingredient Ointment (Analgesic [place]) 1 swathi PRN QID PRN TP MUSCLE PAIN 07/03/21 18:45 UNV Mirtazapine (Remeron) 15 mg QHS PO 07/03/21 21:00 07/25/21 20:37 Risperidone (RisperDAL CONSTA) 25 mg Q2WKS IM 07/05/21 09:00 07/19/21 13:02 Spironolactone (Aldactone) 25 mg DAILY PO 07/04/21 09:00 07/25/21 09:32 Trazodone HCl (Desyrel) 25 mg DAILY PO 07/04/21 09:00 07/25/21 09:34 Trazodone HCl (Desyrel) 50 mg BID@1300,1700 PO 07/04/21 13:00 07/24/21 18:16 DC 07/24/21 17:20 Betamethasone Dipropion Augmented (Betamethasone Dp Aug 0.05% Cream) 1 swathi PRN BID PRN TP RASH 07/03/21 19:15 Non-Formulary Medication (Eucalyptus Oil/ Menthol/Camphor (Vicks Vaporub Ointment)) 50 gm QHS TP 07/03/21 21:00 UNV Guaifenesin (Robitussin Dm) 10 ml PRN Q4HRS PRN PO COUGH 07/03/21 19:15 Insulin Human Lispro (HumaLOG) 28 units TIDWMEALS SQ 07/04/21 08:00 07/25/21 17:53 Insulin Glargine (Lantus Syringe) 40 unit BID SQ 07/03/21 21:00 07/25/21 20:39 Non-Formulary Medication (Magnesium Hydroxide (Milk Of Magnesia)) 2,400 mg PRN QHS PRN PO CONSTIPATION 07/03/21 18:45 UNV Pantoprazole Sodium (Protonix) 40 mg DAILY PO 07/04/21 09:00 07/25/21 09:34 Oxybutynin Chloride (Ditropan) 5 mg DAILY PO 07/04/21 09:00 07/19/21 17:56 DC 07/19/21 08:47 Polyethylene Glycol (miraLAX) 17 gm PRN Q72HRS PRN PO 1ST CHOICE CONSTIPATION 07/03/21 19:15 Potassium Chloride (Klor-Con) 10 meq DAILY PO 07/04/21 09:00 07/04/21 08:42 DC Propranolol HCl (Inderal) 40 mg DAILY PO 07/04/21 09:00 07/25/21 09:32 Vitamin D (Vitamin D3) 2,000 unit DAILY PO 07/04/21 09:00 07/25/21 09:32 Potassium Chloride (Klor-Con) 20 meq BID PO 07/05/21 09:00 07/25/21 20:38 Potassium Chloride (Klor-Con) 40 meq 1X ONCE PO 07/04/21 08:45 07/04/21 08:46 DC 07/04/21 08:59 Potassium Chloride (Klor-Con) 40 meq 1X ONCE PO 07/04/21 09:45 07/04/21 09:46 DC 07/04/21 10:02 Potassium Chloride (Klor-Con) 40 meq 1X ONCE PO 07/04/21 10:45 07/04/21 10:46 DC 07/04/21 10:45 Divalproex Sodium (Depakote Sprinkles) 500 mg BID PO 07/07/21 09:00 07/10/21 16:07 DC 07/10/21 08:09 Divalproex Sodium (Depakote Sprinkles) 750 mg BID PO 07/10/21 21:00 07/25/21 20:37 Risperidone (RisperDAL) 1 mg DAILY PO 07/18/21 12:00 07/25/21 09:33 Oxybutynin Chloride (Ditropan) 5 mg BID PO 07/19/21 18:00 07/19/21 18:01 DC Cefdinir (Omnicef) 300 mg BID PO 07/19/21 21:00 07/26/21 22:00 07/25/21 20:38 Lactobacillus Rhamnosus (Culturelle) 1 cap BID PO 07/19/21 21:00 07/26/21 22:00 07/25/21 20:37 Oxybutynin Chloride (Ditropan) 5 mg BID PO 07/19/21 21:00 07/25/21 20:36 Clonazepam (KlonoPIN) 0.5 mg BID PO 07/23/21 09:00 07/25/21 20:36 I have reviewed the current psychotropics carefully including drug interactions. Risk benefit ratio favors no change other than as noted in my dictated progress note. Diagnosis: Problems: (1) Schizoaffective disorder, bipolar type (2) Mild cognitive impairment (3) Anxiety disorder, unspecified (4) Impulse disorder, unspecified (5) Bipolar disorder, curr episode mixed, severe, with psychotic features RAJIV VELAZQUEZ MD Jul 25, 2021 22:08
[2021-07-26] MEDS: LEVOTHYROXINE 175 MCG TABLET PO SCH (05:43)
[2021-07-26 06:08] VITALS: BP 116/73
--- NOTE | 2021-07-26 06:19 | PDOC ---
Exam Note: Donte Note: This note is a late entry for 07/24/2021 covers elements not covered in my initial note. Subjective: The patient was seen individually in the evening of 07/24/2021 with Daisy COPELAND, discussed and reviewed the chart. The patient slept 7 hours previous night. Overall she remains withdrawn, somewhat sedated during the day. Trazodone was held in the afternoon and she was less sedated. We will go ahead and stop the trazodone 50 mg at 1300, 1700 hours. Review of Systems: Ambulation impaired. No CV, pulmonary, eye, ENT system symptoms on review. Mental Status Exam: The patient is oriented reasonably. I met with her at some length in her room. Speech coherent. Often response is monosyllabic. Abstraction fair. Computation impaired. Language function intact. Mood and affect withdrawn. Laboratory Data: Reviewed. Impression: Schizoaffective disorder bipolar type mixed with psychotic features. Anxiety disorder unspecified. Impulse control disorder unspecified. Plan: No change from initial note. Stop the trazodone as above. Maintain Depakote, Klonopin, Remeron, Risperdal for now and consider reducing Klonopin in due course. Assessment: Vital Signs/I&O: Vital Signs Date Time Temp Pulse Resp B/P (MAP) Pulse Ox O2 Delivery O2 Flow Rate FiO2 07/26/21 06:08 97.7 75 16 116/73 (87) 96 07/25/21 06:22 Room Air I & O 07/25/21 07/25/21 07/26/21 15:00 23:00 07:00 Intake Total 960 ml 600 ml Balance 960 ml 600 ml Labs: Laboratory Tests Test 07/25/21 07:31 07/25/21 11:29 07/25/21 16:32 07/25/21 19:20 Glucose (Fingerstick) 218 mg/dL (70-99) H 357 mg/dL (70-99) H 202 mg/dL (70-99) H 305 mg/dL (70-99) H Current Medications: Meds: Laboratory Tests Test 07/25/21 07:31 07/25/21 11:29 07/25/21 16:32 07/25/21 19:20 Glucose (Fingerstick) 218 mg/dL 357 mg/dL 202 mg/dL 305 mg/dL Current Medications Medications (Trade) Dose Ordered Sig/Leonides Route PRN Reason Start Time Stop Time Status Last Admin Dose Admin Acetaminophen (Tylenol) 650 mg PRN Q6HRS PRN PO MILD PAIN / TEMP > 100.3'F 07/03/21 16:30 Cancel Multi-Ingredient Ointment (Analgesic [place]) 1 swathi PRN QID PRN TP MUSCLE PAIN, 1ST CHOICE 07/03/21 16:30 Al Hydroxide/Mg Hydroxide (Mylanta Plus Xs) 15 ml PRN AFTMEALHC PRN PO DYSPEPSIA 07/03/21 16:30 07/23/21 20:34 Magnesium Hydroxide (Milk Of Magnesia) 2,400 mg PRN QHS PRN PO 2ND CHOICE CONSTIPATION 07/03/21 16:30 Acetaminophen (Tylenol) 650 mg PRN Q4HRS PRN PO MILD PAIN / TEMP > 100.3'F 07/03/21 18:45 07/09/21 05:36 Aspirin (Aspirin Enteric Coated) 81 mg DAILY PO 07/04/21 09:00 07/25/21 09:31 Bisacodyl (Dulcolax Tab) 5 mg PRN DAILY PRN PO 3RD CHOICE CONSTIPATION 07/03/21 18:45 Clonazepam (KlonoPIN) 0.5 mg TID PO 07/03/21 21:00 07/23/21 04:54 DC 07/22/21 20:15 Diclofenac Sodium (Voltaren) 1 swathi PRN Q6HRS PRN TP MUSCLE PAIN, 2ND CHOICE 07/03/21 18:45 Divalproex Sodium (Depakote Sprinkles) 250 mg BID PO 07/03/21 21:00 07/06/21 23:37 DC 07/06/21 20:18 Furosemide (Lasix) 40 mg DAILY PO 07/04/21 09:00 07/25/21 09:33 Ibuprofen (Motrin) 400 mg PRN Q6HRS PRN PO INFLAMMATION / TEMP > 100.3'F 07/03/21 18:45 07/25/21 16:11 Albuterol/ Ipratropium (Combivent Respimat 20-100 Mcg) 1 puff PRN BID PRN INH SHORTNESS OF BREATH 07/03/21 19:15 Levothyroxine Sodium (Synthroid) 175 mcg DAILY06 PO 07/04/21 06:00 07/26/21 05:43 Al Hydroxide/Mg Hydroxide (Mylanta Plus Xs) 15 ml PRN AFTMEALHC PRN PO DYSPEPSIA 07/03/21 18:45 UNV Magnesium Oxide (Magnesium Oxide) 400 mg DAILY PO 07/04/21 09:00 07/25/21 09:30 Multi-Ingredient Ointment (Analgesic [place]) 1 swathi PRN QID PRN TP MUSCLE PAIN 07/03/21 18:45 UNV Mirtazapine (Remeron) 15 mg QHS PO 07/03/21 21:00 07/25/21 20:37 Risperidone (RisperDAL CONSTA) 25 mg Q2WKS IM 07/05/21 09:00 07/19/21 13:02 Spironolactone (Aldactone) 25 mg DAILY PO 07/04/21 09:00 07/25/21 09:32 Trazodone HCl (Desyrel) 25 mg DAILY PO 07/04/21 09:00 07/25/21 09:34 Trazodone HCl (Desyrel) 50 mg BID@1300,1700 PO 07/04/21 13:00 07/24/21 18:16 DC 07/24/21 17:20 Betamethasone Dipropion Augmented (Betamethasone Dp Aug 0.05% Cream) 1 swathi PRN BID PRN TP RASH 07/03/21 19:15 Non-Formulary Medication (Eucalyptus Oil/ Menthol/Camphor (Vicks Vaporub Ointment)) 50 gm QHS TP 07/03/21 21:00 UNV Guaifenesin (Robitussin Dm) 10 ml PRN Q4HRS PRN PO COUGH 07/03/21 19:15 Insulin Human Lispro (HumaLOG) 28 units TIDWMEALS SQ 07/04/21 08:00 07/25/21 17:53 Insulin Glargine (Lantus Syringe) 40 unit BID SQ 07/03/21 21:00 07/25/21 20:39 Non-Formulary Medication (Magnesium Hydroxide (Milk Of Magnesia)) 2,400 mg PRN QHS PRN PO CONSTIPATION 07/03/21 18:45 UNV Pantoprazole Sodium (Protonix) 40 mg DAILY PO 07/04/21 09:00 07/25/21 09:34 Oxybutynin Chloride (Ditropan) 5 mg DAILY PO 07/04/21 09:00 07/19/21 17:56 DC 07/19/21 08:47 Polyethylene Glycol (miraLAX) 17 gm PRN Q72HRS PRN PO 1ST CHOICE CONSTIPATION 07/03/21 19:15 Potassium Chloride (Klor-Con) 10 meq DAILY PO 07/04/21 09:00 07/04/21 08:42 DC Propranolol HCl (Inderal) 40 mg DAILY PO 07/04/21 09:00 07/25/21 09:32 Vitamin D (Vitamin D3) 2,000 unit DAILY PO 07/04/21 09:00 07/25/21 09:32 Potassium Chloride (Klor-Con) 20 meq BID PO 07/05/21 09:00 07/25/21 20:38 Potassium Chloride (Klor-Con) 40 meq 1X ONCE PO 07/04/21 08:45 07/04/21 08:46 DC 07/04/21 08:59 Potassium Chloride (Klor-Con) 40 meq 1X ONCE PO 07/04/21 09:45 07/04/21 09:46 DC 07/04/21 10:02 Potassium Chloride (Klor-Con) 40 meq 1X ONCE PO 07/04/21 10:45 07/04/21 10:46 DC 07/04/21 10:45 Divalproex Sodium (Depakote Sprinkles) 500 mg BID PO 07/07/21 09:00 07/10/21 16:07 DC 07/10/21 08:09 Divalproex Sodium (Depakote Sprinkles) 750 mg BID PO 07/10/21 21:00 07/25/21 20:37 Risperidone (RisperDAL) 1 mg DAILY PO 07/18/21 12:00 07/25/21 09:33 Oxybutynin Chloride (Ditropan) 5 mg BID PO 07/19/21 18:00 07/19/21 18:01 DC Cefdinir (Omnicef) 300 mg BID PO 07/19/21 21:00 07/26/21 22:00 07/25/21 20:38 Lactobacillus Rhamnosus (Culturelle) 1 cap BID PO 07/19/21 21:00 07/26/21 22:00 07/25/21 20:37 Oxybutynin Chloride (Ditropan) 5 mg BID PO 07/19/21 21:00 07/25/21 20:36 Clonazepam (KlonoPIN) 0.5 mg BID PO 07/23/21 09:00 07/25/21 20:36 I have reviewed the current psychotropics carefully including drug interactions. Risk benefit ratio favors no change other than as noted in my dictated progress note. Diagnosis: Problems: (1) Schizoaffective disorder, bipolar type (2) Mild cognitive impairment (3) Anxiety disorder, unspecified (4) Impulse disorder, unspecified (5) Bipolar disorder, curr episode mixed, severe, with psychotic features RAJIV VELAZQUEZ MD Jul 26, 2021 06:19
--- NOTE | 2021-07-26 06:37 | PDOC ---
Exam Note: Donte Note: This note is a late entry for 07/25/2021 covers elements not covered in my initial note. Subjective: The patient was reviewed at treatment team meeting individually in the morning on 07/25/2021 with Marixa Haider (social worker psychiatric), Tg, activity therapy and Iftikhar COPELAND, discussed and reviewed the chart. The patient slept 7-3/4 hours previous night. She has attended 4 groups this past week. She remains somewhat withdrawn. Also discussed with Nila Shaffer RN in the evening. She has been somewhat withdrawn, less sedated with reduction of trazodone. I met with her in her room. Review of Systems: Ambulation impaired. No CV, pulmonary, eye, ENT system symptoms on review. Mental Status Exam: The patient is oriented reasonably. Speech coherent. Often response is monosyllabic. Abstraction fair. Computation impaired. Language function intact. Mood and affect withdrawn. She is less psychotic and less paranoid. Laboratory Data: Reviewed. Impression: Schizoaffective disorder bipolar type mixed with psychotic features. Anxiety disorder unspecified. Impulse control disorder unspecified. Plan: No change from initial note. Assessment: Vital Signs/I&O: Vital Signs Date Time Temp Pulse Resp B/P (MAP) Pulse Ox O2 Delivery O2 Flow Rate FiO2 07/26/21 06:08 97.7 75 16 116/73 (87) 96 07/25/21 06:22 Room Air I & O 07/25/21 07/25/21 07/26/21 15:00 23:00 07:00 Intake Total 960 ml 600 ml Balance 960 ml 600 ml Labs: Laboratory Tests Test 07/25/21 07:31 07/25/21 11:29 07/25/21 16:32 07/25/21 19:20 Glucose (Fingerstick) 218 mg/dL (70-99) H 357 mg/dL (70-99) H 202 mg/dL (70-99) H 305 mg/dL (70-99) H Current Medications: Meds: Laboratory Tests Test 07/25/21 07:31 07/25/21 11:29 07/25/21 16:32 07/25/21 19:20 Glucose (Fingerstick) 218 mg/dL 357 mg/dL 202 mg/dL 305 mg/dL Current Medications Medications (Trade) Dose Ordered Sig/Leonides Route PRN Reason Start Time Stop Time Status Last Admin Dose Admin Acetaminophen (Tylenol) 650 mg PRN Q6HRS PRN PO MILD PAIN / TEMP > 100.3'F 07/03/21 16:30 Cancel Multi-Ingredient Ointment (Analgesic [place]) 1 swathi PRN QID PRN TP MUSCLE PAIN, 1ST CHOICE 07/03/21 16:30 Al Hydroxide/Mg Hydroxide (Mylanta Plus Xs) 15 ml PRN AFTMEALHC PRN PO DYSPEPSIA 07/03/21 16:30 07/23/21 20:34 Magnesium Hydroxide (Milk Of Magnesia) 2,400 mg PRN QHS PRN PO 2ND CHOICE CONSTIPATION 07/03/21 16:30 Acetaminophen (Tylenol) 650 mg PRN Q4HRS PRN PO MILD PAIN / TEMP > 100.3'F 07/03/21 18:45 07/09/21 05:36 Aspirin (Aspirin Enteric Coated) 81 mg DAILY PO 07/04/21 09:00 07/25/21 09:31 Bisacodyl (Dulcolax Tab) 5 mg PRN DAILY PRN PO 3RD CHOICE CONSTIPATION 07/03/21 18:45 Clonazepam (KlonoPIN) 0.5 mg TID PO 07/03/21 21:00 07/23/21 04:54 DC 07/22/21 20:15 Diclofenac Sodium (Voltaren) 1 swathi PRN Q6HRS PRN TP MUSCLE PAIN, 2ND CHOICE 07/03/21 18:45 Divalproex Sodium (Depakote Sprinkles) 250 mg BID PO 07/03/21 21:00 07/06/21 23:37 DC 07/06/21 20:18 Furosemide (Lasix) 40 mg DAILY PO 07/04/21 09:00 07/25/21 09:33 Ibuprofen (Motrin) 400 mg PRN Q6HRS PRN PO INFLAMMATION / TEMP > 100.3'F 07/03/21 18:45 07/25/21 16:11 Albuterol/ Ipratropium (Combivent Respimat 20-100 Mcg) 1 puff PRN BID PRN INH SHORTNESS OF BREATH 07/03/21 19:15 Levothyroxine Sodium (Synthroid) 175 mcg DAILY06 PO 07/04/21 06:00 07/26/21 05:43 Al Hydroxide/Mg Hydroxide (Mylanta Plus Xs) 15 ml PRN AFTMEALHC PRN PO DYSPEPSIA 07/03/21 18:45 UNV Magnesium Oxide (Magnesium Oxide) 400 mg DAILY PO 07/04/21 09:00 07/25/21 09:30 Multi-Ingredient Ointment (Analgesic [place]) 1 swathi PRN QID PRN TP MUSCLE PAIN 07/03/21 18:45 UNV Mirtazapine (Remeron) 15 mg QHS PO 07/03/21 21:00 07/25/21 20:37 Risperidone (RisperDAL CONSTA) 25 mg Q2WKS IM 07/05/21 09:00 07/19/21 13:02 Spironolactone (Aldactone) 25 mg DAILY PO 07/04/21 09:00 07/25/21 09:32 Trazodone HCl (Desyrel) 25 mg DAILY PO 07/04/21 09:00 07/25/21 09:34 Trazodone HCl (Desyrel) 50 mg BID@1300,1700 PO 07/04/21 13:00 07/24/21 18:16 DC 07/24/21 17:20 Betamethasone Dipropion Augmented (Betamethasone Dp Aug 0.05% Cream) 1 swathi PRN BID PRN TP RASH 07/03/21 19:15 Non-Formulary Medication (Eucalyptus Oil/ Menthol/Camphor (Vicks Vaporub Ointment)) 50 gm QHS TP 07/03/21 21:00 UNV Guaifenesin (Robitussin Dm) 10 ml PRN Q4HRS PRN PO COUGH 07/03/21 19:15 Insulin Human Lispro (HumaLOG) 28 units TIDWMEALS SQ 07/04/21 08:00 07/25/21 17:53 Insulin Glargine (Lantus Syringe) 40 unit BID SQ 07/03/21 21:00 07/25/21 20:39 Non-Formulary Medication (Magnesium Hydroxide (Milk Of Magnesia)) 2,400 mg PRN QHS PRN PO CONSTIPATION 07/03/21 18:45 UNV Pantoprazole Sodium (Protonix) 40 mg DAILY PO 07/04/21 09:00 07/25/21 09:34 Oxybutynin Chloride (Ditropan) 5 mg DAILY PO 07/04/21 09:00 07/19/21 17:56 DC 07/19/21 08:47 Polyethylene Glycol (miraLAX) 17 gm PRN Q72HRS PRN PO 1ST CHOICE CONSTIPATION 07/03/21 19:15 Potassium Chloride (Klor-Con) 10 meq DAILY PO 07/04/21 09:00 07/04/21 08:42 DC Propranolol HCl (Inderal) 40 mg DAILY PO 07/04/21 09:00 07/25/21 09:32 Vitamin D (Vitamin D3) 2,000 unit DAILY PO 07/04/21 09:00 07/25/21 09:32 Potassium Chloride (Klor-Con) 20 meq BID PO 07/05/21 09:00 07/25/21 20:38 Potassium Chloride (Klor-Con) 40 meq 1X ONCE PO 07/04/21 08:45 07/04/21 08:46 DC 07/04/21 08:59 Potassium Chloride (Klor-Con) 40 meq 1X ONCE PO 07/04/21 09:45 07/04/21 09:46 DC 07/04/21 10:02 Potassium Chloride (Klor-Con) 40 meq 1X ONCE PO 07/04/21 10:45 07/04/21 10:46 DC 07/04/21 10:45 Divalproex Sodium (Depakote Sprinkles) 500 mg BID PO 07/07/21 09:00 07/10/21 16:07 DC 07/10/21 08:09 Divalproex Sodium (Depakote Sprinkles) 750 mg BID PO 07/10/21 21:00 07/25/21 20:37 Risperidone (RisperDAL) 1 mg DAILY PO 07/18/21 12:00 07/25/21 09:33 Oxybutynin Chloride (Ditropan) 5 mg BID PO 07/19/21 18:00 07/19/21 18:01 DC Cefdinir (Omnicef) 300 mg BID PO 07/19/21 21:00 07/26/21 22:00 07/25/21 20:38 Lactobacillus Rhamnosus (Culturelle) 1 cap BID PO 07/19/21 21:00 07/26/21 22:00 07/25/21 20:37 Oxybutynin Chloride (Ditropan) 5 mg BID PO 07/19/21 21:00 07/25/21 20:36 Clonazepam (KlonoPIN) 0.5 mg BID PO 07/23/21 09:00 07/25/21 20:36 I have reviewed the current psychotropics carefully including drug interactions. Risk benefit ratio favors no change other than as noted in my dictated progress note. Diagnosis: Problems: (1) Schizoaffective disorder, bipolar type (2) Mild cognitive impairment (3) Anxiety disorder, unspecified (4) Impulse disorder, unspecified (5) Bipolar disorder, curr episode mixed, severe, with psychotic features RAJIV VELAZQUEZ MD Jul 26, 2021 06:37
[2021-07-26] MEDS: DIVALPROEX 125 MG CAP.SPRINK PO SCH ×2 (08:34→20:44)
[2021-07-26] MEDS: LACTOBACILLUS RHAMNOSUS GG 1 CAPSULE. PO SCH ×2 (08:35→20:44)
[2021-07-26] MEDS: FUROSEMIDE 40 MG TABLET PO SCH (08:35)
[2021-07-26] MEDS: CHOLECALCIFEROL (VITAMIN D3) 1,000 UNIT TABLET PO SCH (08:35)
[2021-07-26] MEDS: CEFDINIR 300 MG CAPSULE PO SCH ×2 (08:35→20:44)
[2021-07-26] MEDS: clonazePAM 0.5 MG TABLET PO SCH ×2 (08:36→20:44)
[2021-07-26] MEDS: POTASSIUM CHLORIDE 10 MEQ TABLET.ER. PO SCH ×2 (08:36→20:44)
[2021-07-26] MEDS: MAGNESIUM OXIDE 400 MG TABLET PO SCH (08:36)
[2021-07-26] MEDS: traZODone 50 MG TABLET. PO SCH (08:37)
[2021-07-26] MEDS: SPIRONOLACTONE 25 MG TABLET PO SCH (08:37)
[2021-07-26] MEDS: ASPIRIN ENTERIC COATED 81 MG TABLET.DR. PO SCH (08:37)
[2021-07-26] MEDS: OXYBUTYNIN CHLORIDE 5 MG TABLET PO SCH ×2 (08:37→20:44)
[2021-07-26] MEDS: PANTOPRAZOLE 40 MG TABLET. PO SCH (08:38)
[2021-07-26] MEDS: PROPRANOLOL 20 MG TABLET. PO SCH (08:38)
[2021-07-26] MEDS: risperiDONE 1 MG TABLET. PO SCH (08:38)
[2021-07-26] MEDS: INSULIN LISPRO 300 UNITS/3 ML VIAL. SQ SCH ×3 (08:40→17:51)
[2021-07-26] MEDS: INSULIN GLARGINE SYRINGE. SQ SCH ×2 (08:41→20:46)
--- NOTE | 2021-07-26 08:53 | NUR ---
[facility] Social Work Discharge Planning Form Patient Name JILLIAN VU Admit Date: 07/03/21 DISCHARGE PLAN Discharge Destination: [facility] Care Assessment: No Level II Assessment: No Transportation: Facility will p/u Thursday07/30/21 Special Instructions/Notes: Please fax signed med list and visit summary. DISCHARGE TO FACILITY Facility: [facility] Address: [address] [place] [id number] Contact Name: TREMAYNE Meza or KIERAN Dotson PCP: Dr. Jesse Avitai emg technician: Maria Luisa Ferreira
[2021-07-26 15:57] VITALS: BP 128/75
--- NOTE | 2021-07-26 18:34 | NUR ---
Patient has been withdrawn and flat most of this shift. She spent a small amount of time sitting in the day room or cabrera but spent most of her time in her room. Will continue to monitor and report to oncoming shift.
[2021-07-26] MEDS: MIRTAZAPINE 15 MG TABLET PO SCH (20:44)
--- NOTE | 2021-07-26 21:47 | NUR ---
Patient was already in bed when nurse entered the room to give her HS medications. patient calm and compliant with medications. Patient asked for popcorn for a snack but since she is diabetic and had already had ice cream and robin crackers, she was unable to have popcorn. No adverse behaviors noted this shift.
--- NOTE | 2021-07-26 21:53 | PDOC ---
Exam Note: Donte Note: Please also refer to the separate dictated note~for this date of service dictated separately.~Patient seen individually. Discussed the patient with Nursing staff reviewed the chart.~Reviewed interim history and current functioning. Reviewed vital signs,~Labs/ Radiology~and current medications noted below. Continue current treatment with the changes noted in the dictated addendum note Assessment: Vital Signs/I&O: Vital Signs Date Time Temp Pulse Resp B/P (MAP) Pulse Ox O2 Delivery O2 Flow Rate FiO2 07/26/21 15:57 97.0 75 16 128/75 (92) 07/26/21 06:08 96 07/25/21 06:22 Room Air I & O 07/25/21 07/25/21 07/26/21 15:00 23:00 07:00 Intake Total 960 ml 600 ml Balance 960 ml 600 ml Labs: Laboratory Tests Test 07/26/21 07:46 07/26/21 11:44 07/26/21 16:55 07/26/21 19:26 Glucose (Fingerstick) 196 mg/dL (70-99) H 220 mg/dL (70-99) H 265 mg/dL (70-99) H 307 mg/dL (70-99) H Current Medications: Meds: Laboratory Tests Test 07/26/21 07:46 07/26/21 11:44 07/26/21 16:55 07/26/21 19:26 Glucose (Fingerstick) 196 mg/dL 220 mg/dL 265 mg/dL 307 mg/dL Current Medications Medications (Trade) Dose Ordered Sig/Leonides Route PRN Reason Start Time Stop Time Status Last Admin Dose Admin Acetaminophen (Tylenol) 650 mg PRN Q6HRS PRN PO MILD PAIN / TEMP > 100.3'F 07/03/21 16:30 Cancel Multi-Ingredient Ointment (Analgesic [place]) 1 swathi PRN QID PRN TP MUSCLE PAIN, 1ST CHOICE 07/03/21 16:30 Al Hydroxide/Mg Hydroxide (Mylanta Plus Xs) 15 ml PRN AFTMEALHC PRN PO DYSPEPSIA 07/03/21 16:30 07/23/21 20:34 Magnesium Hydroxide (Milk Of Magnesia) 2,400 mg PRN QHS PRN PO 2ND CHOICE CONSTIPATION 07/03/21 16:30 Acetaminophen (Tylenol) 650 mg PRN Q4HRS PRN PO MILD PAIN / TEMP > 100.3'F 07/03/21 18:45 07/09/21 05:36 Aspirin (Aspirin Enteric Coated) 81 mg DAILY PO 07/04/21 09:00 07/26/21 08:37 Bisacodyl (Dulcolax Tab) 5 mg PRN DAILY PRN PO 3RD CHOICE CONSTIPATION 07/03/21 18:45 Clonazepam (KlonoPIN) 0.5 mg TID PO 07/03/21 21:00 07/23/21 04:54 DC 07/22/21 20:15 Diclofenac Sodium (Voltaren) 1 swathi PRN Q6HRS PRN TP MUSCLE PAIN, 2ND CHOICE 07/03/21 18:45 Divalproex Sodium (Depakote Sprinkles) 250 mg BID PO 07/03/21 21:00 07/06/21 23:37 DC 07/06/21 20:18 Furosemide (Lasix) 40 mg DAILY PO 07/04/21 09:00 07/26/21 08:35 Ibuprofen (Motrin) 400 mg PRN Q6HRS PRN PO INFLAMMATION / TEMP > 100.3'F 07/03/21 18:45 07/25/21 16:11 Albuterol/ Ipratropium (Combivent Respimat 20-100 Mcg) 1 puff PRN BID PRN INH SHORTNESS OF BREATH 07/03/21 19:15 Levothyroxine Sodium (Synthroid) 175 mcg DAILY06 PO 07/04/21 06:00 07/26/21 05:43 Al Hydroxide/Mg Hydroxide (Mylanta Plus Xs) 15 ml PRN AFTMEALHC PRN PO DYSPEPSIA 07/03/21 18:45 UNV Magnesium Oxide (Magnesium Oxide) 400 mg DAILY PO 07/04/21 09:00 07/26/21 08:36 Multi-Ingredient Ointment (Analgesic [place]) 1 swathi PRN QID PRN TP MUSCLE PAIN 07/03/21 18:45 UNV Mirtazapine (Remeron) 15 mg QHS PO 07/03/21 21:00 07/26/21 20:44 Risperidone (RisperDAL CONSTA) 25 mg Q2WKS IM 07/05/21 09:00 07/19/21 13:02 Spironolactone (Aldactone) 25 mg DAILY PO 07/04/21 09:00 07/26/21 08:37 Trazodone HCl (Desyrel) 25 mg DAILY PO 07/04/21 09:00 07/26/21 08:37 Trazodone HCl (Desyrel) 50 mg BID@1300,1700 PO 07/04/21 13:00 07/24/21 18:16 DC 07/24/21 17:20 Betamethasone Dipropion Augmented (Betamethasone Dp Aug 0.05% Cream) 1 swathi PRN BID PRN TP RASH 07/03/21 19:15 Non-Formulary Medication (Eucalyptus Oil/ Menthol/Camphor (Vicks Vaporub Ointment)) 50 gm QHS TP 07/03/21 21:00 UNV Guaifenesin (Robitussin Dm) 10 ml PRN Q4HRS PRN PO COUGH 07/03/21 19:15 Insulin Human Lispro (HumaLOG) 28 units TIDWMEALS SQ 07/04/21 08:00 07/26/21 17:51 Insulin Glargine (Lantus Syringe) 40 unit BID SQ 07/03/21 21:00 07/26/21 20:46 Non-Formulary Medication (Magnesium Hydroxide (Milk Of Magnesia)) 2,400 mg PRN QHS PRN PO CONSTIPATION 07/03/21 18:45 UNV Pantoprazole Sodium (Protonix) 40 mg DAILY PO 07/04/21 09:00 07/26/21 08:38 Oxybutynin Chloride (Ditropan) 5 mg DAILY PO 07/04/21 09:00 07/19/21 17:56 DC 07/19/21 08:47 Polyethylene Glycol (miraLAX) 17 gm PRN Q72HRS PRN PO 1ST CHOICE CONSTIPATION 07/03/21 19:15 Potassium Chloride (Klor-Con) 10 meq DAILY PO 07/04/21 09:00 07/04/21 08:42 DC Propranolol HCl (Inderal) 40 mg DAILY PO 07/04/21 09:00 07/26/21 08:38 Vitamin D (Vitamin D3) 2,000 unit DAILY PO 07/04/21 09:00 07/26/21 08:35 Potassium Chloride (Klor-Con) 20 meq BID PO 07/05/21 09:00 07/26/21 20:44 Potassium Chloride (Klor-Con) 40 meq 1X ONCE PO 07/04/21 08:45 07/04/21 08:46 DC 07/04/21 08:59 Potassium Chloride (Klor-Con) 40 meq 1X ONCE PO 07/04/21 09:45 07/04/21 09:46 DC 07/04/21 10:02 Potassium Chloride (Klor-Con) 40 meq 1X ONCE PO 07/04/21 10:45 07/04/21 10:46 DC 07/04/21 10:45 Divalproex Sodium (Depakote Sprinkles) 500 mg BID PO 07/07/21 09:00 07/10/21 16:07 DC 07/10/21 08:09 Divalproex Sodium (Depakote Sprinkles) 750 mg BID PO 07/10/21 21:00 07/26/21 20:44 Risperidone (RisperDAL) 1 mg DAILY PO 07/18/21 12:00 07/26/21 08:38 Oxybutynin Chloride (Ditropan) 5 mg BID PO 07/19/21 18:00 07/19/21 18:01 DC Cefdinir (Omnicef) 300 mg BID PO 07/19/21 21:00 07/26/21 22:00 07/26/21 20:44 Lactobacillus Rhamnosus (Culturelle) 1 cap BID PO 07/19/21 21:00 07/26/21 22:00 07/26/21 20:44 Oxybutynin Chloride (Ditropan) 5 mg BID PO 07/19/21 21:00 07/26/21 20:44 Clonazepam (KlonoPIN) 0.5 mg BID PO 07/23/21 09:00 07/26/21 20:44 I have reviewed the current psychotropics carefully including drug interactions. Risk benefit ratio favors no change other than as noted in my dictated progress note. Diagnosis: Problems: (1) Schizoaffective disorder, bipolar type (2) Anxiety disorder, unspecified (3) Impulse disorder, unspecified (4) Bipolar disorder, curr episode mixed, severe, with psychotic features RAJIV VELAZQUEZ MD Jul 26, 2021 21:53
[2021-07-27] MEDS: IBUPROFEN 400 MG TABLET. PO PRN ×2 (03:15→19:11)
--- NOTE | 2021-07-27 03:22 | NUR ---
Patient up to the bathroom x3 so far tonight. She reports neck pain that is keeping her awake, PRN ibuprofen provided per order for the neck pain. Patient states she has "not slept at all" however sleep hours show that she has been asleep most of the night. Patient states that ever since her medications were changed she has difficulty sleeping and does not feel rested. Will continue to monitor.
[2021-07-27] MEDS: LEVOTHYROXINE 175 MCG TABLET PO SCH (05:46)
[2021-07-27 06:05] VITALS: BP 128/77
[2021-07-27] MEDS: PANTOPRAZOLE 40 MG TABLET. PO SCH (08:47)
[2021-07-27] MEDS: PROPRANOLOL 20 MG TABLET. PO SCH (08:48)
[2021-07-27] MEDS: traZODone 50 MG TABLET. PO SCH (08:48)
[2021-07-27] MEDS: POTASSIUM CHLORIDE 10 MEQ TABLET.ER. PO SCH ×2 (08:48→19:51)
[2021-07-27] MEDS: clonazePAM 0.5 MG TABLET PO SCH ×2 (08:49→19:55)
[2021-07-27] MEDS: SPIRONOLACTONE 25 MG TABLET PO SCH (08:49)
[2021-07-27] MEDS: ASPIRIN ENTERIC COATED 81 MG TABLET.DR. PO SCH (08:49)
[2021-07-27] MEDS: OXYBUTYNIN CHLORIDE 5 MG TABLET PO SCH ×2 (08:49→19:51)
[2021-07-27] MEDS: CHOLECALCIFEROL (VITAMIN D3) 1,000 UNIT TABLET PO SCH (08:49)
[2021-07-27] MEDS: MAGNESIUM OXIDE 400 MG TABLET PO SCH (08:49)
[2021-07-27] MEDS: risperiDONE 1 MG TABLET. PO SCH (08:49)
[2021-07-27] MEDS: FUROSEMIDE 40 MG TABLET PO SCH (08:49)
[2021-07-27] MEDS: DIVALPROEX 125 MG CAP.SPRINK PO SCH ×2 (08:51→19:52)
[2021-07-27] MEDS: INSULIN LISPRO 300 UNITS/3 ML VIAL. SQ SCH ×3 (08:58→17:51)
[2021-07-27] MEDS: INSULIN GLARGINE SYRINGE. SQ SCH ×2 (08:59→19:56)
[2021-07-27 15:55] VITALS: BP 114/81
--- NOTE | 2021-07-27 18:19 | NUR ---
Patient has been withdrawn to her room throughout this shift, she has generally been flat but has shown a few brief smiles. She has had multiple instances of urinary incontinence while in bed and was angry and shouting at staff when MULE DRIVER asked what was wrong. Will continue to monitor and report to oncoming shift.
[2021-07-27] MEDS: MIRTAZAPINE 15 MG TABLET PO SCH (19:51)
--- NOTE | 2021-07-27 23:37 | NUR ---
Patient spent time listening to 70's rock music on the [place] in the hallway. She was compliant with medications taken whole. Patient asked nurse rude question "are you ? you look like it". Patient reports she has had sore neck for 2-3 days and that the PRN Ibuprofen that she gets for pain is not helping. Patient would like a muscle relaxer prescribed. Will pass on in report for Dr to evaluate. no agitation, swearing or screaming noted this shift.
[2021-07-28] MEDS: LEVOTHYROXINE 175 MCG TABLET PO SCH (06:03)
[2021-07-28 06:22] VITALS: BP 114/74
[2021-07-28] MEDS: PROPRANOLOL 20 MG TABLET. PO SCH (08:47)
[2021-07-28] MEDS: ASPIRIN ENTERIC COATED 81 MG TABLET.DR. PO SCH (08:47)
[2021-07-28] MEDS: CHOLECALCIFEROL (VITAMIN D3) 1,000 UNIT TABLET PO SCH (08:47)
[2021-07-28] MEDS: clonazePAM 0.5 MG TABLET PO SCH ×2 (08:47→19:48)
[2021-07-28] MEDS: POTASSIUM CHLORIDE 10 MEQ TABLET.ER. PO SCH ×2 (08:47→19:48)
[2021-07-28] MEDS: FUROSEMIDE 40 MG TABLET PO SCH (08:47)
[2021-07-28] MEDS: DIVALPROEX 125 MG CAP.SPRINK PO SCH ×2 (08:47→19:48)
[2021-07-28] MEDS: MAGNESIUM OXIDE 400 MG TABLET PO SCH (08:48)
[2021-07-28] MEDS: OXYBUTYNIN CHLORIDE 5 MG TABLET PO SCH ×2 (08:48→19:48)
[2021-07-28] MEDS: risperiDONE 1 MG TABLET. PO SCH (08:48)
[2021-07-28] MEDS: PANTOPRAZOLE 40 MG TABLET. PO SCH (08:48)
[2021-07-28] MEDS: traZODone 50 MG TABLET. PO SCH (08:48)
[2021-07-28] MEDS: SPIRONOLACTONE 25 MG TABLET PO SCH (08:49)
[2021-07-28] MEDS: INSULIN LISPRO 300 UNITS/3 ML VIAL. SQ SCH ×3 (08:51→17:42)
[2021-07-28] MEDS: INSULIN GLARGINE SYRINGE. SQ SCH ×2 (08:55→19:49)
--- NOTE | 2021-07-28 10:21 | NUR ---
Nsg Note; Hien was suspicious about her meds this am, sorting them out in her hand and telling me she did not want to take the risperdal, which she eventually took. Later in the hallway, she was very paranoid of me, asking why I'm using street slang while she is using proper [place]. She said "I'm watching you. Now, stay away from me"
--- NOTE | 2021-07-28 11:51 | PDOC ---
Exam Note: Donte Note: This note is a late entry for 07/26/2021 covers elements not covered in my initial note. Subjective: The patient was seen individually in the evening of 07/26/2021 with Larisa COPELAND, discussed and reviewed the chart. The patient slept 7-1/2 hours previous night. She has been flat, withdrawn, less sedated since we reduced the Klonopin and the patient was appreciative of this as I met with her in her room. Blood sugar has been in the 200s. We will defer to Dr. Daniels. She has been somewhat obsessive about discharge plans and I addressed this at length with her. Review of Systems: Ambulation impaired. No CV, pulmonary, eye, ENT system symptoms on review. Mental Status Exam: The patient is oriented reasonably. I met with her in her room. She was lying in bed, very verbal, interactive, clearly recognized me as she does every day and called me by my name correctly. Speech coherent. Often response is monosyllabic. Abstraction fair. Computation impaired. Language function intact. Mood and affect withdrawn. No suicidal or homicidal ideation. She has not been glaring. Psychotic much improved. Laboratory Data: Reviewed. Impression: Schizoaffective disorder bipolar type mixed with psychotic features. Anxiety disorder unspecified. Impulse control disorder unspecified. Plan: No change from initial note. Discharge on next Monday 07/30. Please be noted Dr. Carpio will cover for me from 07/27 through 08/07/2021. Assessment: Vital Signs/I&O: Vital Signs Date Time Temp Pulse Resp B/P (MAP) Pulse Ox O2 Delivery O2 Flow Rate FiO2 07/28/21 08:47 71 114/74 07/28/21 06:22 97.5 20 94 07/25/21 06:22 Room Air I & O 07/27/21 07/27/21 07/28/21 15:00 23:00 07:00 Intake Total 960 ml 600 ml Balance 960 ml 600 ml Labs: Laboratory Tests Test 07/27/21 16:44 07/27/21 19:08 07/28/21 07:19 07/28/21 11:29 Glucose (Fingerstick) 278 mg/dL (70-99) H 262 mg/dL (70-99) H 173 mg/dL (70-99) H 363 mg/dL (70-99) H Current Medications: Meds: Laboratory Tests Test 07/27/21 16:44 07/27/21 19:08 07/28/21 07:19 07/28/21 11:29 Glucose (Fingerstick) 278 mg/dL 262 mg/dL 173 mg/dL 363 mg/dL Current Medications Medications (Trade) Dose Ordered Sig/Leonides Route PRN Reason Start Time Stop Time Status Last Admin Dose Admin Acetaminophen (Tylenol) 650 mg PRN Q6HRS PRN PO MILD PAIN / TEMP > 100.3'F 07/03/21 16:30 Cancel Multi-Ingredient Ointment (Analgesic Macon) 1 swathi PRN QID PRN TP MUSCLE PAIN, 1ST CHOICE 07/03/21 16:30 Al Hydroxide/Mg Hydroxide (Mylanta Plus Xs) 15 ml PRN AFTMEALHC PRN PO DYSPEPSIA 07/03/21 16:30 07/23/21 20:34 Magnesium Hydroxide (Milk Of Magnesia) 2,400 mg PRN QHS PRN PO 2ND CHOICE CONSTIPATION 07/03/21 16:30 Acetaminophen (Tylenol) 650 mg PRN Q4HRS PRN PO MILD PAIN / TEMP > 100.3'F 07/03/21 18:45 07/09/21 05:36 Aspirin (Aspirin Enteric Coated) 81 mg DAILY PO 07/04/21 09:00 07/28/21 08:47 Bisacodyl (Dulcolax Tab) 5 mg PRN DAILY PRN PO 3RD CHOICE CONSTIPATION 07/03/21 18:45 Clonazepam (KlonoPIN) 0.5 mg TID PO 07/03/21 21:00 07/23/21 04:54 DC 07/22/21 20:15 Diclofenac Sodium (Voltaren) 1 swathi PRN Q6HRS PRN TP MUSCLE PAIN, 2ND CHOICE 07/03/21 18:45 Divalproex Sodium (Depakote Sprinkles) 250 mg BID PO 07/03/21 21:00 07/06/21 23:37 DC 07/06/21 20:18 Furosemide (Lasix) 40 mg DAILY PO 07/04/21 09:00 07/28/21 08:47 Ibuprofen (Motrin) 400 mg PRN Q6HRS PRN PO INFLAMMATION / TEMP > 100.3'F 07/03/21 18:45 9/18/21 19:11 Albuterol/ Ipratropium (Combivent Respimat 20-100 Mcg) 1 puff PRN BID PRN INH SHORTNESS OF BREATH 07/03/21 19:15 Levothyroxine Sodium (Synthroid) 175 mcg DAILY06 PO 07/04/21 06:00 07/28/21 06:03 Al Hydroxide/Mg Hydroxide (Mylanta Plus Xs) 15 ml PRN AFTMEALHC PRN PO DYSPEPSIA 07/03/21 18:45 UNV Magnesium Oxide (Magnesium Oxide) 400 mg DAILY PO 07/04/21 09:00 07/28/21 08:48 Multi-Ingredient Ointment (Analgesic Macon) 1 swathi PRN QID PRN TP MUSCLE PAIN 07/03/21 18:45 UNV Mirtazapine (Remeron) 15 mg QHS PO 07/03/21 21:00 07/27/21 19:51 Risperidone (RisperDAL CONSTA) 25 mg Q2WKS IM 07/05/21 09:00 07/19/21 13:02 Spironolactone (Aldactone) 25 mg DAILY PO 07/04/21 09:00 07/28/21 08:49 Trazodone HCl (Desyrel) 25 mg DAILY PO 07/04/21 09:00 07/28/21 08:48 Trazodone HCl (Desyrel) 50 mg BID@1300,1700 PO 07/04/21 13:00 07/24/21 18:16 DC 07/24/21 17:20 Betamethasone Dipropion Augmented (Betamethasone Dp Aug 0.05% Cream) 1 swathi PRN BID PRN TP RASH 07/03/21 19:15 Non-Formulary Medication (Eucalyptus Oil/ Menthol/Camphor (Vicks Vaporub Ointment)) 50 gm QHS TP 07/03/21 21:00 UNV Guaifenesin (Robitussin Dm) 10 ml PRN Q4HRS PRN PO COUGH 07/03/21 19:15 Insulin Human Lispro (HumaLOG) 28 units TIDWMEALS SQ 07/04/21 08:00 07/28/21 08:51 Insulin Glargine (Lantus Syringe) 40 unit BID SQ 07/03/21 21:00 07/28/21 08:55 Non-Formulary Medication (Magnesium Hydroxide (Milk Of Magnesia)) 2,400 mg PRN QHS PRN PO CONSTIPATION 07/03/21 18:45 UNV Pantoprazole Sodium (Protonix) 40 mg DAILY PO 07/04/21 09:00 07/28/21 08:48 Oxybutynin Chloride (Ditropan) 5 mg DAILY PO 07/04/21 09:00 07/19/21 17:56 DC 07/19/21 08:47 Polyethylene Glycol (miraLAX) 17 gm PRN Q72HRS PRN PO 1ST CHOICE CONSTIPATION 07/03/21 19:15 Potassium Chloride (Klor-Con) 10 meq DAILY PO 07/04/21 09:00 07/04/21 08:42 DC Propranolol HCl (Inderal) 40 mg DAILY PO 07/04/21 09:00 07/28/21 08:47 Vitamin D (Vitamin D3) 2,000 unit DAILY PO 07/04/21 09:00 07/28/21 08:47 Potassium Chloride (Klor-Con) 20 meq BID PO 07/05/21 09:00 07/28/21 08:47 Potassium Chloride (Klor-Con) 40 meq 1X ONCE PO 07/04/21 08:45 07/04/21 08:46 DC 07/04/21 08:59 Potassium Chloride (Klor-Con) 40 meq 1X ONCE PO 07/04/21 09:45 07/04/21 09:46 DC 07/04/21 10:02 Potassium Chloride (Klor-Con) 40 meq 1X ONCE PO 07/04/21 10:45 07/04/21 10:46 DC 07/04/21 10:45 Divalproex Sodium (Depakote Sprinkles) 500 mg BID PO 07/07/21 09:00 07/10/21 16:07 DC 07/10/21 08:09 Divalproex Sodium (Depakote Sprinkles) 750 mg BID PO 07/10/21 21:00 07/28/21 08:47 Risperidone (RisperDAL) 1 mg DAILY PO 07/18/21 12:00 07/28/21 08:48 Oxybutynin Chloride (Ditropan) 5 mg BID PO 07/19/21 18:00 07/19/21 18:01 DC Cefdinir (Omnicef) 300 mg BID PO 07/19/21 21:00 07/26/21 22:00 DC 07/26/21 20:44 Lactobacillus Rhamnosus (Culturelle) 1 cap BID PO 07/19/21 21:00 07/26/21 22:00 DC 07/26/21 20:44 Oxybutynin Chloride (Ditropan) 5 mg BID PO 07/19/21 21:00 07/28/21 08:48 Clonazepam (KlonoPIN) 0.5 mg BID PO 07/23/21 09:00 07/28/21 08:47 I have reviewed the current psychotropics carefully including drug interactions. Risk benefit ratio favors no change other than as noted in my dictated progress note. Diagnosis: Problems: (1) Schizoaffective disorder, bipolar type (2) Mild cognitive impairment (3) Anxiety disorder, unspecified (4) Impulse disorder, unspecified (5) Bipolar disorder, curr episode mixed, severe, with psychotic features RAJIV VELAZQUEZ MD Jul 28, 2021 11:51
--- NOTE | 2021-07-28 14:22 | PN ---
DATE: 07/27/2021 SUBJECTIVE: The patient was seen today, met with the staff. Chart reviewed and also this is a late entry for the service date 07/27/2021. Staff reports no major behavior problems today and she is much calmer, medication compliant. She tends to withdraw to her room mostly in the evenings. The patient also complaining of frequent neck pain and also having difficulty with sleep. Staff reports no falls. CURRENT MEDICATIONS: The patient's current medications include lorazepam 0.5 mg twice a day, Risperdal 1 mg daily, Depakote 750 mg twice a day, Risperdal 25 mg IM q. 2 weeks, trazodone 25 mg daily, mirtazapine 15 mg at night. The patient is not having any side effects to the medications. LABORATORY DATA: The patient's lab reviewed. The patient's valproic acid level was 73. The patient's CBC and chem profile were within the normal range. OBJECTIVE: VITAL SIGNS: Temperature 97.9, blood pressure 128/77, pulse 70, respirations 18, O2 sat 96%. Slept about 7-1/2 hours last night. The patient's appetite is fair. ASSESSMENT: 1. Schizoaffective disorder, bipolar type, mixed with psychotic features. 2. Anxiety disorder, unspecified. 3. Impulse control disorder, unspecified. PLAN: To continue with the treatment. LENGTH OF STAY: 7 to [address]: Horacio TID: [id number]
[2021-07-28 15:39] VITALS: BP 126/83
--- NOTE | 2021-07-28 16:36 | NUR ---
Nsg Note; feeling and acting better this afternoon after a brief nap after lunch. Alert and oriented at this time, and had a good conversation with me about her past and how she is feeling better this afternoon. looking forward to discharge on thursday
[2021-07-28] MEDS: MIRTAZAPINE 15 MG TABLET PO SCH (19:48)
[2021-07-28] MEDS: IBUPROFEN 400 MG TABLET. PO PRN (21:38)
--- NOTE | 2021-07-28 22:16 | NUR ---
Pt sitting quietly in the hallway when approached. Pt calm, pleasant, and appropriate this evening. Pt cooperative with assessment and compliant with medications administered whole. PRN Motrin administered for c/o neck pain. No agitation or aggression noted thus far this evening.
--- NOTE | 2021-07-28 23:11 | PN ---
DATE: 07/28/2021 SUBJECTIVE: The patient was seen today, met with the staff. Chart was reviewed and also covering for Dr. Gallagher. Staff reports no major behavioral problems. She is much calmer, medication compliant. She tends to be rude at times. The patient also complaining of chronic neck pain and requesting muscle relaxers. OBSERVATION: VITAL SIGNS: Temperature 97.5, blood pressure 114/74, pulse 76, respirations 20, O2 sat 94%. GENERAL: Slept about 8 hours last night and her appetite is normal. CURRENT MEDICATIONS: The patient's current medications include clonazepam 0.5 mg twice a day, Risperdal 1 mg daily, Depakote 750 mg twice a day. Also, she is on Risperdal Consta 25 mg IM every 2 weeks, trazodone 25 mg at night and mirtazapine 15 mg at night. The patient currently not having any side effects to medications. LABORATORY DATA: The patient's lab reviewed. The patient's Depakote level was 73. ASSESSMENT: 1. Schizoaffective disorder, bipolar type, mixed with psychotic features. 2. Anxiety disorder, unspecified. 3. Impulse control disorder, unspecified. PLAN: Continue with the treatment. LENGTH OF STAY: Three to five days. The patient anticipating discharge sometime next week. RONY EDWARDS: Horacio TID: [id number]
[2021-07-29] MEDS: LEVOTHYROXINE 175 MCG TABLET PO SCH (05:12)
[2021-07-29 06:10] LABS: BASO % 1 % (0-3); EOS # 0.4 x10^3/uL (0.0-0.7); EOS % 6 % (0-3); HEMATOCRIT 35.9 % (36.0-47.0); HEMOGLOBIN 11.8 g/dL (12.0-15.5); LYMPH # 2.9 x10^3/uL (1.0-4.8); LYMPH % 41 % (24-48); MEAN CORPUSCULAR HEMOGLOBIN 28 pg (25-35); MEAN CORPUSCULAR HGB CONC 33 g/dL (31-37); MEAN CORPUSCULAR VOLUME 84 fL (79-100); MONO % 15 % (0-9); NEUT # 2.6 x10^3uL (1.8-7.7); NEUT % 37 % (31-73); PLATELET COUNT 156 x10^3/uL (140-400); RED BLOOD COUNT 4.27 x10^6/uL (3.50-5.40); RED CELL DISTRIBUTION WIDTH 14.2 % (11.5-14.5); WHITE BLOOD COUNT 6.9 x10^3/uL (4.0-11.0)
[2021-07-29 06:11] VITALS: BP 127/80
[2021-07-29 06:22] LABS: ALBUMIN 2.5 g/dL (3.4-5.0); ALBUMIN/GLOBULIN RATIO 0.6 (1.0-1.7); CALCIUM 8.8 mg/dL (8.5-10.1); CREATININE 0.9 mg/dL (0.6-1.0); GFR 62.8; POTASSIUM 4.4 mmol/L (3.5-5.1); TOTAL BILIRUBIN 0.3 mg/dL (0.2-1.0); TOTAL PROTEIN 6.6 g/dL (6.4-8.2)
[2021-07-29] MEDS: INSULIN LISPRO 300 UNITS/3 ML VIAL. SQ SCH ×3 (09:05→17:43)
[2021-07-29] MEDS: INSULIN GLARGINE SYRINGE. SQ SCH ×2 (09:05→21:12)
[2021-07-29] MEDS: DIVALPROEX 125 MG CAP.SPRINK PO SCH ×2 (09:07→20:32)
[2021-07-29] MEDS: traZODone 50 MG TABLET. PO SCH (09:07)
[2021-07-29] MEDS: risperiDONE 1 MG TABLET. PO SCH (09:07)
[2021-07-29] MEDS: MAGNESIUM OXIDE 400 MG TABLET PO SCH (09:08)
[2021-07-29] MEDS: POTASSIUM CHLORIDE 10 MEQ TABLET.ER. PO SCH ×2 (09:08→20:32)
[2021-07-29] MEDS: OXYBUTYNIN CHLORIDE 5 MG TABLET PO SCH ×2 (09:08→20:32)
[2021-07-29] MEDS: CHOLECALCIFEROL (VITAMIN D3) 1,000 UNIT TABLET PO SCH (09:08)
[2021-07-29] MEDS: PROPRANOLOL 20 MG TABLET. PO SCH (09:08)
[2021-07-29] MEDS: ASPIRIN ENTERIC COATED 81 MG TABLET.DR. PO SCH (09:08)
[2021-07-29] MEDS: clonazePAM 0.5 MG TABLET PO SCH ×2 (09:08→20:32)
[2021-07-29] MEDS: SPIRONOLACTONE 25 MG TABLET PO SCH (09:08)
[2021-07-29] MEDS: FUROSEMIDE 40 MG TABLET PO SCH (09:08)
[2021-07-29] MEDS: PANTOPRAZOLE 40 MG TABLET. PO SCH (09:08)
--- NOTE | 2021-07-29 09:47 | NUR ---
Nursing note: Patient in dinning room for morning medications & assessment. She is medication compliant, taken whole. She is A/O X4, calm and cooperative. Patient ambulates with walker. She is sitting in hallway. Will continue to monitor.
--- NOTE | 2021-07-29 10:56 | NUR ---
TREMAYNE contacted Susana at pt facility to provide update and confirm D/C for tomorrow at 1430. Susana stated that facility was still planning to pick pt up at that time. Susana did not believe that pt would need to quarantine as she has been vaccinated X2, but she would let me know by the end of the day if that information changed. TREMAYNE reported to Susana that Hien has been using a walker here at the hospital as she stated that it makes her feel more stable. Susana stated that she would pass that information along to the facility nursing staff. TREMAYNE then contacted pt guardian, Tami, to provide same information. Tami appreciative of update and asked if pt's kids had called her. TREMAYNE reported to Tami that I did not believe pt had received any phone calls while her at [facility]. aTmi stated that she was just curious as she had contacted pt's kids to let them know that she was in the hospital, but she really didn't think they would call.
[2021-07-29] MEDS ORDERED: OXYB5TAB10 PO (11:43)
[2021-07-29] MEDS ORDERED: RISP1TAB88 PO (11:44)
--- NOTE | 2021-07-29 15:43 | NUR ---
Pt requesting to use the phone to call her daughter. Pt states, "I've called her before. I know the number." This nurse reviewed communication consents in chart and the the only number provided is of the Guardian. There is no name or number for the daughter listed for staff to contact. This nurse contacted concerning the situation and based on guidance by TREMAYNE this request cannot be accommodated because daughter phone number has not been provided by sho. Addendum: 07/29/21 at 1554 by JULIAN JAVIER RN Spoke to Sho Garrett for pt. After discussing phone contact with daughter, it was decided that she can contact daughter via phone once she gets back to her facility on 07/30/21. Sho states that she gave daughter [facility] phone number via text and daughter never responded. To nursing staff's knowledge daughter has never called [facility] for update or to talk to pt.
[2021-07-29 15:48] VITALS: BP 146/80
[2021-07-29] MEDS: IBUPROFEN 400 MG TABLET. PO PRN (18:25)
[2021-07-29] MEDS: MIRTAZAPINE 15 MG TABLET PO SCH (20:32)
--- NOTE | 2021-07-29 22:33 | NUR ---
Pt sitting quietly in the hallway when approached. Pt calm, pleasant, and appropriate during encounter. Pt cooperative with assessment and compliant with medications administered whole. No agitation or aggression noted thus far this shift.
[2021-07-29] MEDS: ACETAMINOPHEN 325 MG TABLET PO PRN (23:11)
[2021-07-30 05:12] VITALS: BP 97/54
[2021-07-30] MEDS: LEVOTHYROXINE 175 MCG TABLET PO SCH (05:17)
[2021-07-30 08:49] VITALS: BP 127/54
[2021-07-30 08:53] VITALS: BP 127/54
[2021-07-30] MEDS: DIVALPROEX 125 MG CAP.SPRINK PO SCH (08:53)
[2021-07-30] MEDS: risperiDONE 1 MG TABLET. PO SCH (08:53)
[2021-07-30] MEDS: PROPRANOLOL 20 MG TABLET. PO SCH (08:53)
[2021-07-30] MEDS: MAGNESIUM OXIDE 400 MG TABLET PO SCH (08:54)
[2021-07-30] MEDS: SPIRONOLACTONE 25 MG TABLET PO SCH (08:54)
[2021-07-30] MEDS: PANTOPRAZOLE 40 MG TABLET. PO SCH (08:54)
[2021-07-30] MEDS: traZODone 50 MG TABLET. PO SCH (08:54)
[2021-07-30] MEDS: ASPIRIN ENTERIC COATED 81 MG TABLET.DR. PO SCH (08:54)
[2021-07-30] MEDS: FUROSEMIDE 40 MG TABLET PO SCH (08:54)
[2021-07-30] MEDS: CHOLECALCIFEROL (VITAMIN D3) 1,000 UNIT TABLET PO SCH (08:54)
[2021-07-30] MEDS: clonazePAM 0.5 MG TABLET PO SCH (08:54)
[2021-07-30] MEDS: POTASSIUM CHLORIDE 10 MEQ TABLET.ER. PO SCH (08:54)
[2021-07-30] MEDS: OXYBUTYNIN CHLORIDE 5 MG TABLET PO SCH (08:54)
[2021-07-30] MEDS: INSULIN LISPRO 300 UNITS/3 ML VIAL. SQ SCH ×2 (08:59→12:48)
[2021-07-30] MEDS: INSULIN GLARGINE SYRINGE. SQ SCH (09:20)
--- NOTE | 2021-07-30 13:15 | NUR ---
Transition Record was faxed to follow-up provider with the following elements: Reason for admission, procedures, tests, principal diagnosis, pending studies, patient instructions, 01/06 contact information for unit, phone number to obtain pending test results, plan for follow-up care, physician follow-up, advanced directive information, and medication list with dose, duration and instructions. This information was included in the following documents: History and physical, lab results, study results, progress notes, social work planning form, DC instruction form, patient visit summary, and medication reconciliation form. Date & time record faxed: 07/29/2021 @1155 Record faxed to: Terrence Abdi Record discussed with/ report given to: Terrence Abdi staff MIN Gastelum @0950 07/30/2021
[2021-07-30] MEDS: IBUPROFEN 400 MG TABLET. PO PRN (14:29)
--- NOTE | 2021-07-31 06:58 | DS ---
DATE OF DISCHARGE: 07/29/2021 This is a late entry for the service date 07/29/2021 FINAL DIAGNOSES: AXIS I: 1. Schizoaffective disorder, bipolar type, mixed with psychotic features. 2. Anxiety disorder, unspecified. 3. Impulse control disorder, unspecified. AXIS II: None. AXIS III: Diabetes mellitus, hyperlipidemia and hypothyroidism. REASON FOR ADMISSION: This 65-year-old female was readmitted to [facility] from [facility] in [place] because of exacerbation of her psychotic symptoms, refusing medications, irritability, increased agitation and also verbally abusive. The patient also failed outpatient psychiatric interventions. HISTORY OF PRESENT ILLNESS: She has a long history of schizoaffective disorder, bipolar type. The patient apparently has been hospitalized before including [facility] and currently, she is residing in a [facility] where she has been stable for a period of time, but started having problems recently. The patient also becoming increasingly paranoid, suspicious, significant mood swings and also variation of appetite and sleep. The patient did not express any suicidal or homicidal thoughts. HOSPITAL COURSE: The patient had a physical exam and routine lab work including CBC, chem profile, urinalysis. The patient's labs were within normal range except for hemoglobin ____. The patient's blood sugar was elevated. The patient's creatinine level was 1.1, AST was 44. The patient's glucose level fluctuated from 146 to 208. The patient's ammonia level was 32. The patient's potassium was low 3.4. The patient was involved in a program including individual therapy, group therapy and activity therapy. The patient was on clonazepam 0.5 mg twice a day, Risperdal 1 mg daily, Depakote 750 mg twice a day, trazodone 25 mg daily and mirtazapine 15 mg at night. The patient was also on potassium chloride, vitamin D, Ditropan, Protonix, spironolactone, Lasix, aspirin, insulin, levothyroxine, also insulin, Humalog and Lantus. The patient was also on mirtazapine 15 mg at night. The patient did show improvement, able to participate in all activities. The patient at the time of discharge was medically stable. AFTERCARE PLAN: The patient at the time of discharge was medically stable. No evidence of any psychotic symptoms. The patient's gait normal. No falls. The patient is agreed for discharge. She will be returning to [facility] and she was advised to continue with the medications. Continue to see a psychiatrist. DARNELL/AVRIL/OSMEL DR: Horacio TID: [id number]
== END 2021-07-30 13:15 | DRG 885 ==
LOC: GEROPSY 13:25
PROVIDERS: ADMIT Psychiatry & Neurology Psychiatry; ATTEND Psychiatry & Neurology Psychiatry
DX: F25.0 Schizoaffective disorder, bipolar type (principal); E43 Unspecified severe protein-calorie malnutrition; E11.65 Type 2 diabetes mellitus with hyperglycemia; F79 Unspecified intellectual disabilities; N39.0 Urinary tract infection, site not specified; E03.9 Hypothyroidism, unspecified; E78.5 Hyperlipidemia, unspecified; F41.9 Anxiety disorder, unspecified; F63.9 Impulse disorder, unspecified; G31.84 Mild cognitive impairment of uncertain or unknown etiology; G89.29 Other chronic pain; K21.9 Gastro-esophageal reflux disease without esophagitis; N32.81 Overactive bladder; N32.89 Other specified disorders of bladder; Z79.899 Other long term (current) drug therapy; Z20.822 Contact with and (suspected) exposure to COVID-19; Z88.8 Allergy status to other drugs, medicaments and biological substances; Z68.38 Body mass index [BMI] 38.0-38.9, adult
CPT/HCPCS: 36415; 80048; 80053; 80164; 81001; 82140; 82947; 85007; 85025; 87077; 87086; 87186; 94640; J1815; J2794; U0003; 97530; 97535